=== PATIENT | male | born 1945 | race Caucasian/White ===

== ENCOUNTER 2018-07-21 08:45 | Day surgery (SDC) | payer OTHER, BC ==
--- OUTSIDE RECORDS SUMMARY | 2018-07-21 08:47 | XMS REPORT ---
:1945 [facility] Address [address] [place] [address] [address]. Ship[address] [place] [address] Care Team Providers Name Role Phone Unavailable Unavailable Unavailable Payers Payer Name Policy Type Policy Number Effective Date Expiration Date Problems This patient has no known problems. Allergies, Adverse Reactions, Alerts Allergy Allergy Status Severity Reaction(s) Onset Inactive Treating Comments Name Type Date Date Clinician No Known DA Active U 2018-05 Allergies -03 00:00:0 0 Medications This patient has no known medications.
--- OUTSIDE RECORDS SUMMARY | 2018-07-21 08:47 | XMS REPORT | Clinical Summary ---
:1945 Author Organization [facility] Address [address] [place] [address] Care Team Providers Name Role Phone Darnell Harrison Osiris Primary Care Provider Allergies No Known Allergies Medications Medication Sig Dispensed Refills Start Date End Date Status aspirin 81 MG Take 81 mg 0 Active chewable tablet by mouth daily. metoprolol Take 50 mg 0 Active (LOPRESSOR) 50 MG by mouth 2 tablet (two) times daily. isosorbide dinitrate Take 30 mg 0 Active (ISORDIL) 30 MG by mouth 4 tablet (four) times daily. traZODone (DESYREL) Take 50 mg 0 Active 50 MG tablet by mouth nightly. simvastatin (ZOCOR) Take 20 mg 0 Active 20 MG tablet by mouth nightly. colestipol 1 gram Tab Take by 0 Active mouth. digoxin (LANOXIN) Take 125 mcg 0 Active 0.125 MG tablet by mouth daily. furosemide (LASIX) 20 Take 20 mg 0 Active MG tablet by mouth daily. rivaroxaban (XARELTO) Take 20 mg 0 Active 20 mg Tab tablet by mouth daily. folic acid (FOLVITE) Take 1 mg by 0 Active 1 MG tablet mouth daily. spironolactone Take 50 mg 0 Active (ALDACTONE) 50 MG by mouth tablet daily. hydrOXYzine (ATARAX) Take 25 mg 0 Active 25 MG tablet by mouth every night as needed. colchicine (COLCRYS) Take 0.6 mg 0 Active 0.6 mg tablet by mouth as needed. thiamine 100 MG Take 100 mg 0 Active tablet by mouth daily. vitamin E 400 UNIT Take 400 0 Active capsule Units by mouth daily. omega-3 acid ethyl Take 2 g by 0 Active esters (LOVAZA) 1 mouth 2 gram capsule (two) times daily. apixaban (ELIQUIS) Take 2.5 mg 0 Active 2.5 mg Tab tablet by mouth 2 (two) times daily. sertraline (ZOLOFT) TAKE ONE (1) 30 tablet 2 10/19/2017 Active 50 MG TABLET(S) BY tabletIndications: MOUTH ONCE A Pruritus, Abnormal DAY. liver enzymes, Hyperlipidemia, unspecified hyperlipidemia type, Fatty liver, Screening for cancer, Cirrhosis of liver without ascites, unspecified hepatic cirrhosis type (HCC), Overweight sertraline (ZOLOFT) Take 1 90 tablet 3 05/28/2017 10/19/2017 Discontinued 50 MG tablet (50 tabletIndications: mg total) by Pruritus, Abnormal mouth daily. liver enzymes, Hyperlipidemia, unspecified hyperlipidemia type, Fatty liver, Screening for cancer, Cirrhosis of liver without ascites, unspecified hepatic cirrhosis type (HCC), Overweight Active Problems Problem Noted Date Pruritus 10/25/2015 Alcohol use 09/02/2013 Overweight 09/02/2013 Hyperlipidemia 09/02/2013 Renal insufficiency 09/02/2013 Fatty liver 09/02/2013 Cirrhosis, Risk of 01/05/2013 Last Assessment & Plan: Patient has risk factors in the form of heavy alcohol abuse in the past. He we will do the comprehensive workup for other causes of cirrhosis. He'll also need assessment for portal hypertension, endoscopy for admission screening and MRI for screening of liver cancer. Melena 01/05/2013 Last Assessment & Plan: Patient has history of intermittent melena for last 1-2 weeks. He has not symptom of fatigue and his last hemoglobin was 9 will need 24 hour supervision for safety. Gm/dl. I recommend patient to go to the emergency room for further evaluation. Melena can be due to associated varices or gastric or peptic ulcer disease. He will need monitoring of hemoglobin, possible blood transfusion and endoscopic evaluation Congestive heart failure 01/05/2013 Last Assessment & Plan: Patient has background history of coronary artery disease, he has progressive dyspnea and bite to the extremity edema. He is on diuretics but he does not appear to be adequately controlled. I recommend going into the ER for evaluation and treatment Abnormal liver enzymes 01/05/2013 Last Assessment & Plan: Patient was suffered here for abnormal liver panel, predominant elevation of alkaline phosphatase . This may be related to congestive hepatopathy, but he has symptoms of pruritus, cholestatic liver dise ase needs to be excluded The patient he has significant risk factor for chronic liver disease, there is do a comprehensive workup for evaluation Screening for cancer 01/05/2013 Last Assessment & Plan: Patient has suggestion of cirrhosis based on the imaging. He will need to MRI to further evaluate for screening of HCC. Coronary artery disease 01/05/2013 Last Assessment & Plan: Patient has history of coronary artery disease last 15 years, he is status post multiple coronary angioplasties in the past. He is followed closely by his community outreach coordinator at present denies any chest pain but symptoms of progressive fatigue and dyspnea concerning. He will need evaluation. My recommendation would be to go to the emergency room for admission and assessment. Patient refusing initially, other check labs . GI bleed 01/05/2013 Encounters Date Type Specialty Care Team Description 06/24/2018 Outside Orders Central Scheduling Emigdio Goncalves Acute renal failure, unspecified acute renal failure type (HCC) (Primary Dx) 02/24/2018 Telephone Hepatology Katerina Pace refjoanie Jason RN 10/19/2017 Refill Hepatology Arturo Wills, Pruritus; Abnormal liver enzymes; Hyperlipidemia, unspecified hyperlipidemia type; Fatty liver; Screening for cancer; Cirrhosis of liver without ascites, unspecified hepatic cirrhosis type (HCC); Overweight after 07/20/2017 Family History Medical History Relation Name Comments Gout Father Hypertension Father Heart disease Mother Relation Name Status Comments Father Mother Social History Tobacco Use Types Packs/Day Years Used Date Former Smoker Smokeless Tobacco: Former User Quit: 06/01/2005 Alcohol Use Drinks/Week oz/Week Comments Yes more than 5 times/week, quit 12/05/2012 Sex Assigned at Date Recorded Not on file Job Start Date Occupation Industry Not on file Not on file Not on file Travel History Travel Start Travel End No recent travel history available. Last Filed Vital Signs Not on file Plan of Treatment Health Maintenance Due Date Last Done Comments INFLUENZA VACCINE 03/01/2018 Results Not on fileafter 07/20/2017 Insurance Payer Benefit Plan / Subscriber ID Type Phone Address Group MEDICARE MEDICARE A B xxxxxxxxxx Medicare BLUE CROSS/BLUE BCBS INDEMNITY [place] xxxxxxxxxxxx [facility] [phone] [address] [place] [address] Advance Directives For more information, please contact:[address] [phone] Code Status Date Activated Date Inactivated Comments Code ONE 01/11/2013 7:33 PM 01/13/2013 7:59 PM All possible means of support including;cardiac massage, mechanical ventilation, and defibrillation will be used to support life.
--- OUTSIDE RECORDS SUMMARY | 2018-07-21 08:47 | XMS REPORT | Clinical Summary ---
:1945 Author Organization [facility] Address [address] [place] [address] Care Team Providers Name Role Phone Asked, No Pcp Primary Care Provider Unavailable Allergies Not on File Medications Not on file Active Problems Not on file Social History Tobacco Use Types Packs/Day Years Used Date Never Assessed Sex Assigned at Date Recorded Not on file Job Start Date Occupation Industry Not on file Not on file Not on file Travel History Travel Start Travel End No recent travel history available. Last Filed Vital Signs Not on file Plan of Treatment Health Maintenance Due Date Last Done Comments COLON CANCER SCREENING 1996 SHINGLES VACCINES (1 of 2) 1996 PNEUMOCOCCAL POLYSACCHARIDE VACCINE AGE 65 AND OVER 2011 PNEUMOCOCCAL-13 2011 INFLUENZA VACCINE 12/30/2017 Results Not on fileafter 07/20/2017 Insurance Payer Benefit Plan / Group Subscriber ID Type Phone Address MEDICARE MEDICARE PART A AND B xxxxxxxxxx Medicare [place], [place] BCBS BCBS CHOICE PPO/FEDERAL EMPL PPO xxxxxxxxxxxx PPO Advance Directives Patient has advance care planning documents on file. For more information, please contact:[facility] [place] [address]
--- NOTE | 2018-07-21 11:49 | RAD REPORT ---
EXAM DESCRIPTION: US - Abdomen Exam Limited - 07/21/2018 10:32 am CLINICAL HISTORY: Abdominal pain. FINDINGS: The patient presented for a paracentesis. A small amount of ascites is seen within the right upper quadrant. Minimal ascites is present through out the remainder of the abdomen and pelvis. Due to the small amount of ascites a paracentesis was not performed
== END 2018-07-21 10:54 | disposition home or self-care (01) ==
LOC: DS 08:45
PROVIDERS: ATTEND Internal Medicine
DX: R18.8 Other ascites (principal)
CPT/HCPCS: 76705

== ENCOUNTER 2018-07-24 16:30 | Emergency (ER) | payer OTHER, BC ==
--- OUTSIDE RECORDS SUMMARY | 2018-07-24 16:32 | XMS REPORT | Clinical Summary ---
:1945 Author Organization [facility] Address [address] [place] [address] Care Team Providers Name Role Phone Asked, [...] Comments COLON CANCER SCREENING 1996 SHINGLES VACCINES (#1) 1996 65+ PNEUMOCOCCAL VACCINE (1 of 2 - PCV13) 2011 PNEUMOCOCCAL POLYSACCHARIDE VACCINE AGE 65 AND OVER 2011 INFLUENZA VACCINE 12/30/2017 Results Not on fileafter 07/23/2017 Insurance Payer Benefit Plan / Group Subscriber ID Type Phone Address MEDICARE MEDICARE PART A AND B xxxxxxxxxx Medicare [place], [place] BCBS BCBS CHOICE PPO/FEDERAL EMPL PPO xxxxxxxxxxxx PPO Advance Directives Patient has advance care planning documents on file. For more information, please contact:[facility] [place] [address]
--- OUTSIDE RECORDS SUMMARY | 2018-07-24 16:33 | XMS REPORT ---
:1945 [facility] Address [address] [place] [address] [address]. [address]ley [address] [place] [address] Care Team Providers Name Role Phone Unavailable [...]
--- OUTSIDE RECORDS SUMMARY | 2018-07-24 16:33 | XMS REPORT | Clinical Summary ---
:1945 Demographics Address [address] [place] [address] [address] [place] [address] Mobile Phone Home Phone Work Phone Email Address Preferred Language Macedonian Marital Status Unknown Gnosticism Affiliation Unknown Race White Ethnic Group Not or Author Organization [facility] Address [address] [place] [address] Care Team Providers Name Role Phone Darnell [...] past. He is followed closely by his air saw operator at present denies any chest pain but [...] unspecified hepatic cirrhosis type (HCC); Overweight after 07/23/2017 Family History Medical History Relation Name Comments [...] INFLUENZA VACCINE 03/01/2018 Results Not on fileafter 07/23/2017 Insurance Payer Benefit Plan / Subscriber ID Type Phone Address Group MEDICARE MEDICARE A B xxxxxxxxxx Medicare BLUE CROSS/BLUE BCBS INDEMNITY [place] xxxxxxxxxxxx [facility] [phone] [address] [place] [address] Advance Directives For more information, please contact:[address] [phone] Code Status Date Activated Date Inactivated Comments Code ONE 01/11/2013 7:33 PM 01/13/2013 7:59 PM All possible means of support including;cardiac massage, mechanical ventilation, and defibrillation will be used to support life.
--- NOTE | 2018-07-24 16:52 | ER ---
Nurse's Notes [facility] Name: Tam Escalante Age: 73 yrs Sex: Male : 1945 Arrival Date: 07/24/2018 Time: 16:36 Bed 8 Private MD: Diagnosis: Varicose veins of right lower extremities with pain-bleeding Presentation: 07/24 16:30 Presenting complaint: Patient states: He had a scab on his leg from where he hit it on aj1 a deer stand. Today while he was in the shower he bumped it and it burst open and he has not been able to get it to stop bleeding. Patient reports that he takes Xarelto. 16:30 Transition of care: patient was not received from another setting of care. Complicating aj1 Factors: There are no complicating factors for this patient. Onset of symptoms was July 24, 2018. Risk Assessment: Do you want to hurt yourself or someone else? Patient reports no desire to harm self or others. Initial Sepsis Screen: Does the patient meet any 2 criteria? No. Patient's initial sepsis screen is negative. Does the patient have a suspected source of infection? No. Patient's initial sepsis screen is negative. Care prior to arrival: None. 16:30 Method Of Arrival: Ambulatory aj1 16:30 Acuity: SHAYNE 2 aj1 Triage Assessment: 16:30 General: Appears in no apparent distress. uncomfortable, Behavior is calm, cooperative, aj1 appropriate for age. Pain: Complains of pain in lateral aspect of right calf Pain currently is 6 out of 10 on a pain scale. Injury Description: Laceration sustained to lateral aspect of right calf is bleeding profusely. Historical: - Allergies: 16:45 No Known Allergies; aj1 - Home Meds: 16:45 Metoprolol Tartrate Oral [Active]; Xarelto oral oral [Active]; aj1 - PMHx: 16:45 Hypertension; aj1 - Immunization history:: Flu vaccine is not up to date. - Social history:: Smoking status: Patient/guardian denies using tobacco. - Ebola Screening: : Patient denies travel to an Ebola-affected area in the 21 days before illness onset. - Family history:: not pertinent. Screenin:30 Abuse screen: Denies threats or abuse. Denies injuries from another. Nutritional aj1 screening: No deficits noted. Tuberculosis screening: No symptoms or risk factors identified. 16:30 Fall Risk None identified. aj1 Assessment: 16:30 Reassessment: Dr. Yousif at bedside. aj1 16:30 General: Appears in no apparent distress. uncomfortable, Behavior is calm, cooperative, aj1 appropriate for age. Pain: Complains of pain in lateral aspect of right calf Pain does not radiate. Pain currently is 6 out of 10 on a pain scale. Neuro: Level of Consciousness is awake, alert, obeys commands, Oriented to person, place, time, situation. Cardiovascular: Patient's skin is warm and dry. Respiratory: Airway is patent Respiratory effort is even, unlabored, Respiratory pattern is regular, symmetrical. GI: No signs and/or symptoms were reported involving the gastrointestinal system. : No signs and/or symptoms were reported regarding the genitourinary system. EENT: No signs and/or symptoms were reported regarding the EENT system. Derm: Skin is pink, warm \T\ dry. Musculoskeletal: No signs and/or symptoms reported regarding the musculoskeletal system. Circulation, motion, and sensation intact. Injury Description: Laceration sustained to lateral aspect of right calf is bleeding profusely. 16:51 Reassessment: Wound repaired by Dr. Yousif using sterile technique with 1 stitch and aj1 application of Surgicel, site was covered with 4x4 and wrapped with SELAM bandage. Patient tolerated well. Vital Signs: 16:30 BP 113 / 75; Pulse 82; Resp 17; Pulse Ox 100% on R/A; Weight 91.63 kg; Height 5 ft. 9 aj1 in. (175.26 cm); Pain 6/10; 16:30 Body Mass Index 29.83 (91.63 kg, 175.26 cm) aj1 ED Course: 16:30 Arm band placed on. aj1 16:30 Patient has correct armband on for positive identification. Bed in low position. Call aj1 light in reach. Side rails up X 1. radiation monitor on. Pulse ox on. NIBP on. 16:30 No provider procedures requiring assistance completed. aj1 16:36 Patient arrived in ED. aj1 16:42 Letty David RN is Primary Nurse. aj1 16:43 Joe Yousif MD is Attending Physician. [facility] 16:44 Triage completed. aj1 16:50 Fili Arceo MD is Referral Physician. [facility] 17:04 Patient did not have IV access during this emergency room visit. aj1 Administered Medications: No medications were administered Outcome: 16:51 Discharge ordered by . [facility] 17:04 Discharged to home via wheelchair. [facility] 17:04 Condition: good 17:04 Discharge instructions given to patient, Instructed on discharge instructions, follow up and referral plans. no drinking with medication, no driving heavy equipment, medication usage, Demonstrated understanding of instructions, follow-up care, medications, Prescriptions given X 2. 17:05 Patient left the ED. aj Signatures: Letty David RN RN aj1 Joe Yousif MD MD [facility] Corrections: (The following items were deleted from the chart) 16:48 16:30 Acuity: SHAYNE [address] [place] [id number] 16:48 16:47 Reassessment: Dr. Yousif at bedside [place] [id number]
--- NOTE | 2018-07-24 16:52 | EDPHYS ---
Physician Documentation [facility] Name: Tam Escalante Age: 73 yrs Sex: Male : 1945 Arrival Date: 07/24/2018 Time: 16:36 Bed 8 Private MD: ED Physician Joe Yousif HPI: 07/24 16:45 This 73 yrs old Male presents to ER via Ambulatory with complaints of ayleen Laceration To Leg. 16:45 The patient has a laceration related to: a puncture wound avulsion. The laceration(s) ayleen is(are) located on the right leg. Onset: The symptoms/episode began/occurred just prior to arrival, original wound June 10. Associated signs and symptoms: The patient has no apparent associated signs or symptoms. The patient has not experienced similar symptoms in the past. Historical: - Allergies: 16:45 No Known Allergies; aj1 - Home Meds: 16:45 Metoprolol Tartrate Oral [Active]; Xarelto oral oral [Active]; aj1 - PMHx: 16:45 Hypertension; aj1 - Immunization history:: Flu vaccine is not up to date. - Social history:: Smoking status: Patient/guardian denies using tobacco. - Ebola Screening: : Patient denies travel to an Ebola-affected area in the 21 days before illness onset. - Family history:: not pertinent. ROS: 16:45 Constitutional: Negative for fever, chills, and weight loss, Eyes: Negative for injury, ayleen pain, redness, and discharge, ENT: Negative for injury, pain, and discharge, Neck: Negative for injury, pain, and swelling, Cardiovascular: Negative for chest pain, palpitations, and edema, Respiratory: Negative for shortness of breath, cough, wheezing, and pleuritic chest pain, Abdomen/GI: Negative for abdominal pain, nausea, vomiting, diarrhea, and constipation, Back: Negative for injury and pain, : Negative for injury, bleeding, discharge, and swelling, Skin: Negative for injury, rash, and discoloration, Neuro: Negative for headache, weakness, numbness, tingling, and seizure, Psych: Negative for depression, anxiety, suicide ideation, homicidal ideation, and hallucinations, Allergy/Immunology: Negative for hives, rash, and allergies, Endocrine: Negative for neck swelling, polydipsia, polyuria, polyphagia, and marked weight changes, Hematologic/Lymphatic: Negative for swollen nodes, abnormal bleeding, and unusual bruising. 16:45 MS/extremity: Positive for erythema, pain, of the right leg. Exam: 16:45 Constitutional: This is a well developed, well nourished patient who is awake, alert, ayleen and in no acute distress. Head/Face: Normocephalic, atraumatic. Eyes: Pupils equal round and reactive to light, extra-ocular motions intact. Lids and lashes normal. Conjunctiva and sclera are non-icteric and not injected. Cornea within normal limits. Periorbital areas with no swelling, redness, or edema. ENT: Nares patent. No nasal discharge, no septal abnormalities noted. Tympanic membranes are normal and external auditory canals are clear. Oropharynx with no redness, swelling, or masses, exudates, or evidence of obstruction, uvula midline. Mucous membranes moist. Neck: Trachea midline, no thyromegaly or masses palpated, and no cervical lymphadenopathy. Supple, full range of motion without nuchal rigidity, or vertebral point tenderness. No Meningismus. Chest/axilla: Normal chest wall appearance and motion. Nontender with no deformity. No lesions are appreciated. Cardiovascular: Regular rate and rhythm with a normal S1 and S2. No gallops, murmurs, or rubs. Normal PMI, no JVD. No pulse deficits. Respiratory: Lungs have equal breath sounds bilaterally, clear to auscultation and percussion. No rales, rhonchi or wheezes noted. No increased work of breathing, no retractions or nasal flaring. Abdomen/GI: Soft, non-tender, with normal bowel sounds. No distension or tympany. No guarding or rebound. No evidence of tenderness throughout. Back: No spinal tenderness. No costovertebral tenderness. Full range of motion. Male : Normal genitalia with no discharge or lesions. Skin: Warm, dry with normal turgor. Normal color with no rashes, no lesions, and no evidence of cellulitis. Neuro: Awake and alert, GCS 15, oriented to person, place, time, and situation. Cranial nerves II-XII grossly intact. Motor strength 5/5 in all extremities. Sensory grossly intact. Cerebellar exam normal. Normal gait. Psych: Awake, alert, with orientation to person, place and time. Behavior, mood, and affect are within normal limits. 16:45 Musculoskeletal/extremity: Extremities: noted in the right lyons: pain, abrasion, ROM: no acute changes, intact in all extremities, full active range of motion, full passive range of motion, Circulation is intact in all extremities. Sensation intact. Compartment Syndrome exam of affected extremity: is normal. bleeding varicose vein. Vital Signs: 16:30 BP 113 / 75; Pulse 82; Resp 17; Pulse Ox 100% on R/A; Weight 91.63 kg; Height 5 ft. 9 aj1 in. (175.26 cm); Pain 6/10; 16:30 Body Mass Index 29.83 (91.63 kg, 175.26 cm) aj1 Laceration: 16:48 Wound Repair of .2cm ( 0.1in ) subcutaneous laceration to right lyons. Irregularly ayleen shaped.. varicose vein. Distal neuro/vascular/tendon intact. Anesthesia: Local anesthetic administered with 6 mls of 1% lidocaine. Wound prep: Simple cleansing by me, Copious irrigation. Skin closed with 1 1-0 fig 8 using simple sutures and sterile technique. Dressed with surgicel , adaptix, guaze , emile. Patient tolerated well. MDM: 16:43 Patient medically screened. [facility] 16:48 Data reviewed: vital signs, nurses notes. [facility] 07/24 16:44 Order name: Dressing - Wound; Complete Time: 16:52 [facility] 07/24 16:44 Order name: Gloves, Sterile; Complete Time: 16:52 [facility] 07/24 16:44 Order name: Setup Suture Tray; Complete Time: 16:52 [facility] 07/24 16:44 Order name: Emile Wrap; Complete Time: 16:52 [facility] Administered Medications: No medications were administered Disposition: 07/24/18 16:51 Discharged to Home. Impression: Varicose veins of right lower extremities with pain - bleeding. - Condition is Stable. - Discharge Instructions: Varicose Veins. - Prescriptions for Keflex 500 mg Oral Capsule - take 1 capsule by ORAL route every 6 hours for 7 days; 28 capsule. Tylenol- Codeine #3 300-30 mg Oral Tablet - take 2 tablets by ORAL route every 6 hours As needed; 24 tablet. - Medication Reconciliation Form, Thank You Letter, Antibiotic Education, Prescription Opioid Use form. - Follow up: Private Physician; When: 2 - 3 days; Reason: Recheck today's complaints, Continuance of care, Re-evaluation by your physician. Follow up: Fili Arceo MD; When: 2 - 3 days; Reason: Recheck today's complaints, Continuance of care, Re-evaluation by your physician. - Problem is new. - Symptoms have improved. Signatures: Letty David RN RN aj1 Joe Yousif MD MD cha Corrections: (The following items were deleted from the chart) 17:05 16:51 07/24/2018 16:51 Discharged to Home. Impression: Varicose veins of right lower aj1 extremities with pain - bleeding. Condition is Stable. Forms are Medication Reconciliation Form, Thank You Letter, Antibiotic Education, Prescription Opioid Use. Follow up: Private Physician; When: 2 - 3 days; Reason: Recheck today's complaints, Continuance of care, Re-evaluation by your physician. Follow up: Dr. Fili Arceo; When: 2 - 3 days; Reason: Recheck today's complaints, Continuance of care, Re-evaluation by your physician. Problem is new. Symptoms have improved. ayleen
== END 2018-07-24 17:05 | disposition home or self-care (01) ==
LOC: ER 16:30
PROC: 0HQKXZZ Repair Right Lower Leg Skin, External Approach (ICD-10-PCS; principal; 2018-07-24)
DX: I83.891 Varicose veins of right lower extremity with other complications (principal); I83.811 Varicose veins of right lower extremity with pain
CPT/HCPCS: 99284

== ENCOUNTER 2018-07-31 15:59 | Emergency (ER) | payer OTHER, BC ==
--- OUTSIDE RECORDS SUMMARY | 2018-07-31 16:01 | XMS REPORT | Clinical Summary ---
:1945 Author Organization [facility] Address [address] [place] [address] Care Team Providers Name Role Phone Asked, [...] INFLUENZA VACCINE 12/30/2017 Results Not on fileafter 07/30/2017 Insurance Payer Benefit Plan / Group Subscriber ID Type Phone Address MEDICARE MEDICARE PART A AND B xxxxxxxxxx Medicare [place], [place] BCBS BCBS CHOICE PPO/FEDERAL EMPL PPO xxxxxxxxxxxx PPO Advance Directives Patient has advance care planning documents on file. For more information, please contact:[facility] [place] [address]
--- OUTSIDE RECORDS SUMMARY | 2018-07-31 16:02 | XMS REPORT ---
:1945 Author Organization [facility] Address [address] [place] [address] [address]. [address] [place] [address] Care Team Providers Name Role Phone Unavailable [...]
--- OUTSIDE RECORDS SUMMARY | 2018-07-31 16:02 | XMS REPORT | Clinical Summary ---
:1945 Author Organization [facility] Address [address] [place] [address] Care Team Providers Name Role Phone Darnell [...] past. He is followed closely by his station gateman at present denies any chest pain but [...] (Primary Dx) 02/24/2018 Telephone Hepatology Katerina Pace refill ACE Jason 10/19/2017 Refill Hepatology Arturo Wills, Pruritus; Abnormal liver enzymes; Hyperlipidemia, unspecified hyperlipidemia type; Fatty liver; Screening for cancer; Cirrhosis of liver without ascites, unspecified hepatic cirrhosis type (HCC); Overweight after 07/30/2017 Family History Medical History Relation Name Comments [...] INFLUENZA VACCINE 03/01/2018 Results Not on fileafter 07/30/2017 Insurance Payer Benefit Plan / Subscriber ID Type Phone Address Group MEDICARE MEDICARE A B xxxxxxxxxx Medicare BLUE CROSS/BLUE BCBS INDEMNITY [place] xxxxxxxxxxxx [facility] [phone] [address] [place] [address] Advance Directives For more information, please contact:[address] [phone] Code Status Date Activated Date Inactivated Comments Code ONE 01/11/2013 7:33 PM 01/13/2013 7:59 PM All possible means of support including;cardiac massage, mechanical ventilation, and defibrillation will be used to support life.
[2018-07-31] MEDS ORDERED: PANTOPRAZOLE 40 MG INJ ONE (16:54)
[2018-07-31 16:56] LABS: Absolute Lymphocytes (CBC) 1.1 K/uL (0.7-4.9); Absolute Monocytes 1.6 K/uL (0.1-1.3); Basophils % 1.1 % (0-1.3); MPV 8.9 fL (7.6-11.3); Monocytes % 12.5 % (3.3-12.3); RBC Red Blood Cell Count 2.23 M/uL (4.33-5.43)
[2018-07-31] MEDS ORDERED: PANTOPRAZOLE INJ 80 MG in NA CHLORIDE 0.9% 250 ML IV SCH (17:00)
[2018-07-31 17:01] LABS: Protime INR 1.18
[2018-07-31 17:02] LABS: Hematocrit 18.4 % (39.6-49.0)
[2018-07-31 17:15] LABS: ALT/SGPT 10 U/L (12-78); AST/SGOT 10 U/L (15-37); Albumin 2.9 g/dL (3.4-5.0); Alkaline Phosphatase 161 U/L (45-117); BUN Blood Urea Nitrogen 107 mg/dL (7-18); Bicarbonate 27 mmol/L (21-32); Bilirubin Direct 0.2 mg/dL (0-0.2); Bilirubin Total 0.4 mg/dL (0.2-1.0); Glucose Level 127 mg/dL (74-106); Magnesium 2.4 mg/dL (1.8-2.4); NT PRO-BNP 1455 pg/mL (<125); Protein, Total 6.1 g/dL (6.4-8.2); Sodium Level 140 mmol/L (136-145); Troponin (Emerg Dept Use Only) < 0.02 ng/mL (0.0-0.045)
[2018-07-31] MEDS ORDERED: NA CHLORIDE 0.9% 250 ML ONE ×2 (17:54→20:12)
--- NOTE | 2018-07-31 19:09 | RAD REPORT ---
EXAM DESCRIPTION: CT - Abdomen Pelvis Wo Contrast - 07/31/2018 6:41 pm CLINICAL HISTORY: Abdominal pain /GI bleed COMPARISON: None TECHNIQUE: Computed axial tomography of the abdomen and pelvis was obtained. IV was not requested. O ral contrast was given. Coronal reconstructions performed. All CT scans are performed using dose optimization technique as appropriate and may include automated exposure control or mA/KV adjustment according to patient size. FINDINGS: The evaluation of solid organs and vessels is limited secondary to the lack of contrast a dministration. The liver, spleen, pancreas, adrenals and kidneys appear grossly normal. The appendix is normal. There is no evidence of diverticulitis. A 4.8 centimeter peripherally calcified mass is present within the mesentery of the left abdomen abov e the level of the iliac crest anteriorly. An umbilical hernia contains fat. The neck measures about 15 millimeters. Spondylosis involves lumbar spine resulting spinal stenosis A minimal amount of ascites is present IMPRESSION: 4.8 centimeter peripherally calcified mesenteric mass within the left abdomen has a grea ter likelihood of being benign than malignant. A followup CT scan in 3 months is recommended to asses s stability.
--- NOTE | 2018-07-31 19:10 | RAD REPORT ---
EXAM DESCRIPTION: [place] Single View07/31/2018 5:20 pm CLINICAL HISTORY: Chest pain COMPARISON: July 13, 2018 FINDINGS: The lungs appear clear of acute infiltrate. The heart is moderately to markedly enlarged IMPRESSION: No acute abnormalities displayed
--- NOTE | 2018-07-31 19:59 | ER ---
Nurse's Notes [facility] Name: Tam Escalante Age: 73 yrs Sex: Male : 1945 Arrival Date: 07/31/2018 Time: 16:02 Bed 8 Private MD: Diagnosis: Unspecified kidney failure;Anemia in chronic diseases classified elsewhere;Gastrointestinal hemorrhage, unspecified Presentation: 07/31 16:05 Presenting complaint: Patient states: black stools x 3 days ago, pt denies vomiting but aa5 reports nausea. Pt states "I was also here a week ago and Dr. Yousif sutured my leg but when I take the bandage off it starts bleeding again". Pt denies abd pain. 16:05 Transition of care: patient was not received from another setting of care. Onset of aa5 symptoms was July 28, 2018. Risk Assessment: Do you want to hurt yourself or someone else? Patient reports no desire to harm self or others. Care prior to arrival: None. 16:05 Method Of Arrival: Ambulatory aa5 16:05 Acuity: SHAYNE 3 aa5 19:23 Initial Sepsis Screen: Does the patient meet any 2 criteria? No. Patient's initial la1 sepsis screen is negative. Does the patient have a suspected source of infection? No. Patient's initial sepsis screen is negative. Historical: - Allergies: 16:05 No Known Allergies; aa5 - Home Meds: 18:25 metoprolol tartrate 100 mg oral tab 2 times per day [Active]; Xarelto 15 mg oral tab iw daily [Active]; trazodone 50 mg Oral tab daily [Active]; folic acid 1 mg Oral tab 1 tab once daily [Active]; torsemide 20 mg oral tab 1 tab once daily [Active]; isosorbide dinitrate 30 mg Oral tab daily [Active]; colchicine 0.6 mg Oral tab as needed [Active]; allopurinol 100 mg Oral tab 1 tab once daily [Active]; - PMHx: 16:05 Hypertension; GI bleed; Stomach ulcer; aa5 - Immunization history:: Adult Immunizations up to date. - Ebola Screening: : No symptoms or risks identified at this time. - Social history:: Smoking status: Patient/guardian denies using tobacco. Screenin:51 Abuse screen: Denies threats or abuse. Nutritional screening: No deficits noted. la1 Tuberculosis screening: No symptoms or risk factors identified. Fall Risk None identified. Assessment: 16:51 General: Appears in no apparent distress. Behavior is calm, cooperative. Pain: la1 Complains of pain in abdomen. Neuro: Level of Consciousness is awake, alert, obeys commands, Oriented to person, place, time, situation. Cardiovascular: Heart tones S1 S2 present Capillary refill < 3 seconds Patient's skin is warm and dry. Respiratory: Airway is patent Respiratory effort is even, unlabored, Respiratory pattern is regular, symmetrical. GI: Abdomen is round non-distended, Bowel sounds present X 4 quads. Abd is soft X 4 quads Abdomen is tender to palpation in left upper quadrant and right lower quadrant Reports bloody stool, nausea, since 07/29 Pt guaiac positive, dark black tarry stool on glove. : No signs and/or symptoms were reported regarding the genitourinary system. 18:15 Reassessment: Patient appears in no apparent distress at this time. No changes from la1 previously documented assessment. Patient and/or family updated on plan of care and expected duration. Pain level reassessed. Patient is alert, oriented x 3, equal unlabored respirations, skin warm/dry/pink. 19:22 Reassessment: Patient appears in no apparent distress at this time. No changes from la1 previously documented assessment. Patient and/or family updated on plan of care and expected duration. Pain level reassessed. Patient is alert, oriented x 3, equal unlabored respirations, skin warm/dry/pink. 20:53 Reassessment: Patient appears in no apparent distress at this time. No changes from la1 previously documented assessment. Patient and/or family updated on plan of care and expected duration. Pain level reassessed. Patient is alert, oriented x 3, equal unlabored respirations, skin warm/dry/pink. 20:53 Reassessment: pt currently finishing second unit of blood as requested by receiving [facility] facility. 08/01 00:43 Reassessment: Patient appears in no apparent distress at this time. No changes from jd3 previously documented assessment. Patient and/or family updated on plan of care and expected duration. Pain level reassessed. Patient is alert, oriented x 3, equal unlabored respirations, skin warm/dry/pink. 01:02 Reassessment: Patient and/or family updated on plan of care and expected duration. Pain tl1 level reassessed. Patient is alert, oriented x 3, equal unlabored respirations, skin warm/dry/pink. Patient denies pain at this time. Patient states feeling better. 01:03 Reassessment: Report called to Kiara at [facility]. tl1 Vital Signs: 07/31 16:07 BP 133 / 79; Pulse 95; Resp 18 S; Temp 97.7(O); Pulse Ox 100% on R/A; Weight 91.63 kg aa5 (R); Height 5 ft. 9 in. (175.26 cm) (R); Pain 0/10; 17:50 BP 154 / 86; Pulse 93; Resp 16; Pulse Ox 100% on R/A; iw 19:22 BP 148 / 76; Pulse 91; Resp 16; Pulse Ox 98% on R/A; la1 20:54 BP 136 / 66; Pulse 84; Resp 18; Temp 96.7(TE); Pulse Ox 98% ; la1 0303 00:03 BP 127 / 63; Pulse 85; Resp 17; Pulse Ox 99% on R/A; Pain 0/10; tl1 00:45 BP 120 / 51; Pulse 79; Resp 16 S; Pulse Ox 100% on R/A; jd3 03 16:07 Body Mass Index 29.83 (91.63 kg, 175.26 cm) aa5 ED Course: 07/31 16:02 Patient arrived in ED. mr 16:05 Arm band placed on Patient placed in an exam room, on a stretcher. aa5 16:11 Sigifredo Garcia RN is Primary Nurse. la1 16:13 Joe Reid PA is PHCP. cp 16:13 Alvina Ponce MD is Attending Physician. cp 16:17 Triage completed. aa5 16:51 Placed in gown. Bed in low position. Call light in reach. shuttle inspector on. Pulse ox la1 on. NIBP on. 16:51 No provider procedures requiring assistance completed. Inserted saline lock: 20 gauge la1 in right antecubital area, using aseptic technique. Blood collected. 17:17 X-ray completed. Portable x-ray completed in exam room. Patient tolerated procedure kw well. 17:18 XRAY Chest (1 view) In Process Unspecified. EDMS 18:38 CT completed. Patient tolerated procedure well. Patient moved back from CT. kw1 18:41 CT Abd/Pelvis - Without Cont In Process Unspecified. EDMS 08/01 01:04 Patient transferred, IV remains in place. tl1 Administered Medications: 07/31 16:51 Drug: ProTONIX 40 mg Route: IVP; Site: right antecubital; la1 20:54 Follow up: Response: No adverse reaction la1 17:09 Drug: ProTONIX 8 mg/hr Route: IV; Rate: 25 ml/hr; Site: right antecubital; la1 20:54 Follow up: IV Status: Infusion continued upon transfer la1 08/01 01:05 Follow up: IV Status: Infusion continued upon transfer tl1 07/31 23:41 Drug: Ativan 1 mg Route: IVP; Infused Over: 2 mins; Site: left antecubital; tl1 08/01 01:05 Follow up: Response: No adverse reaction; Marked relief of symptoms; Anxiety decreased tl1 Medication: 07/31 18:15 Blood products: PRBCs X 1 unit given. la1 20:53 Blood products: PRBCs X 1 unit given. la1 Outcome: 19:58 ER care complete, transfer ordered by MD. blanton 08/01 01:03 Transferred by private ambulance to [facility], [facility], Transfer form tl1 completed. X-rays sent w/ patient. Condition: stable Instructed on the need for transfer. 01:06 Patient left the ED. tl1 Signatures: Dispatcher [employer] [facility] Regina Quintana Dunia Del Rosario RN Palak Pillai RN RN Marissa Silva Lee, RN RN la1 Diane Jarrett RN RN tl1 Joe Reid PA PA cp Davies, Jonathon, RN RN jd3 Wilhelm, Kimberly kw1 Corrections: (The following items were deleted from the chart) 07/31 16:22 16:05 Presenting complaint: Patient states: black stools x 3 days ago, pt denies aa5 vomiting but reports nausea. Pt states "I was also here a week ago and Dr. Yousif sutured my leg but when I take the bandage off it starts bleeding again" aa5 18:25 18:06 Home Meds: Metoprolol Tartrate Oral; iw iw 18:25 18:06 Home Meds: Xarelto Oral; iw iw
--- NOTE | 2018-07-31 19:59 | EDPHYS ---
Physician Documentation [facility] Name: Tam Escalante Age: 73 yrs Sex: Male : 1945 Arrival Date: 07/31/2018 Time: 16:02 Bed 8 Private MD: ED Physician Alvina Ponce HPI: 07/31 16:27 This 73 yrs old Male presents to ER via Ambulatory with complaints of Bloody cp Stools, Abdominal Swelling. 16:27 The patient presents to the emergency department with rectal bleeding, a moderate cp amount, dark red blood with bowel movement with multiple such episodes. 16:27 Onset: The symptoms/episode began/occurred 3 day(s) ago. Abdominal pain: located in the cp right lower quadrant, that does not radiate. Associated signs and symptoms: Pertinent negatives: chest pain, constipation, diarrhea, dizziness at rest, fever, shortness of breath, syncope. Severity of symptoms: in the emergency department the symptoms are unchanged. Historical: - Allergies: 16:05 No Known Allergies; aa5 - Home Meds: 18:25 metoprolol tartrate 100 mg oral tab 2 times per day [Active]; Xarelto 15 mg oral tab iw daily [Active]; trazodone 50 mg Oral tab daily [Active]; folic acid 1 mg Oral tab 1 tab once daily [Active]; torsemide 20 mg oral tab 1 tab once daily [Active]; isosorbide dinitrate 30 mg Oral tab daily [Active]; colchicine 0.6 mg Oral tab as needed [Active]; allopurinol 100 mg Oral tab 1 tab once daily [Active]; - PMHx: 16:05 Hypertension; GI bleed; Stomach ulcer; aa5 - Immunization history:: Adult Immunizations up to date. - Ebola Screening: : No symptoms or risks identified at this time. - Social history:: Smoking status: Patient/guardian denies using tobacco. ROS: 16:30 Constitutional: Negative for body aches, chills, fever, poor PO intake. cp 16:30 Eyes: Negative for injury, pain, redness, and discharge. cp 16:30 ENT: Negative for drainage from ear(s), ear pain, sore throat, difficulty swallowing, difficulty handling secretions. 16:30 Cardiovascular: Negative for chest pain, edema. 16:30 Respiratory: Negative for cough, shortness of breath, wheezing. 16:30 Abdomen/GI: Positive for abdominal pain, black/tarry stool, Negative for vomiting, diarrhea, constipation, anorexia. 16:30 Skin: Positive for wound right lower leg. 16:30 Neuro: Negative for altered mental status, dizziness, headache, syncope, weakness. 16:30 All other systems are negative. Exam: 16:35 Constitutional: The patient appears in no acute distress, alert, awake, cp non-diaphoretic, non-toxic, well developed, well nourished. 16:35 Head/Face: Normocephalic, atraumatic. cp 16:35 Eyes: Periorbital structures: appear normal, Pupils: equal, round, and reactive to light and accomodation, Extraocular movements: intact throughout, Conjunctiva: normal, no exudate, no injection, Sclera: no appreciated abnormality, Lids and lashes: appear normal, bilaterally. 16:35 ENT: External ear(s): are unremarkable, Ear canal(s): are normal, TM's: are normal, no evidence of bulging, no erythema, Nose: is normal, Mouth: Lips: moist, Oral mucosa: moist, Posterior pharynx: is normal, airway is patent, no erythema, no exudate. 16:35 Neck: ROM/movement: is normal, is supple, without pain, no range of motions limitations, no nuchal rigidity. 16:35 Chest/axilla: Inspection: normal, Palpation: is normal, no crepitus, no tenderness. 16:35 Cardiovascular: Rate: normal, Rhythm: irregularly irregular, Edema: is not appreciated, JVD: is not appreciated. 16:35 Respiratory: the patient does not display signs of respiratory distress, Respirations: normal, no use of accessory muscles, no retractions, no splinting, no tachypnea, labored breathing, is not present, Breath sounds: are clear throughout, no decreased breath sounds, no stridor, no wheezing. 16:35 Abdomen/GI: Inspection: distension, that is mild, Bowel sounds: active, all quadrants, Palpation: soft, in all quadrants, mild abdominal tenderness, in the right lower quadrant, rebound tenderness, is not appreciated, voluntary guarding, is not appreciated, involuntary guarding, is not appreciated, Rectal exam: Stool: guaiac positive, black. 16:35 Neuro: Orientation: to person, place \T\ time. Mentation: is normal, Cerebellar function: is grossly normal, Motor: moves all fours, strength is normal, Sensation: is normal. 16:35 Skin: Wound recheck: Suture laceration closure: the edges are well approximated, mild cp drainage, mild erythema. 16:57 ECG was reviewed by the Attending Physician. cp Vital Signs: 16:07 BP 133 / 79; Pulse 95; Resp 18 S; Temp 97.7(O); Pulse Ox 100% on R/A; Weight 91.63 kg aa5 (R); Height 5 ft. 9 in. (175.26 cm) (R); Pain 0/10; 17:50 BP 154 / 86; Pulse 93; Resp 16; Pulse Ox 100% on R/A; iw 19:22 BP 148 / 76; Pulse 91; Resp 16; Pulse Ox 98% on R/A; la1 20:54 BP 136 / 66; Pulse 84; Resp 18; Temp 96.7(TE); Pulse Ox 98% ; la1 08/01 00:03 BP 127 / 63; Pulse 85; Resp 17; Pulse Ox 99% on R/A; Pain 0/10; tl1 00:45 BP 120 / 51; Pulse 79; Resp 16 S; Pulse Ox 100% on R/A; jd3 07/31 16:07 Body Mass Index 29.83 (91.63 kg, 175.26 cm) aa5 MDM: 07/31 16:13 Patient medically screened. cp 19:30 Data reviewed: vital signs, nurses notes, lab test result(s), EKG, radiologic studies, cp CT scan, plain films. 19:30 Test interpretation: by ED physician or midlevel provider: ECG, plain radiologic cp studies. 19:47 Physician consultation: was contacted at 19:45, DR Goodman, [place] operator \T\[facility], cp will consult on patient. 20:35 Physician consultation: DR Matthew, hospitalist \T\[facility], will accept patient as cp transfer. 07/31 16:32 Order name: Basic Metabolic Panel; Complete Time: 17:38 cp 07/31 17:39 Interpretation: Normal except: GLUC 127; BUN 107; CRE 2.58; GFR 25. cp 07/31 16:32 Order name: CBC with Diff; Complete Time: 17:04 cp 03/02 17:05 Interpretation: Normal except: WBC 13.1; RBC 2.23; HGB 5.9; HCT 18.4; MCV 82.3; MCH cp 26.2; MCHC 31.9; RDW 17.1; GUIDO% 76.4; LYM% 8.0; MN% 12.5; NEUT A 10.0; MNA 1.6. 07/31 16:32 Order name: LFT's; Complete Time: 17:38 cp / 17:43 Interpretation: Normal except: AST 10; ALT 10; ALK 161; TP 6.1; ALB 2.9; A/G 0.9. cp 03/ 16:32 Order name: Magnesium; Complete Time: 17:38 cp / 16:32 Order name: NT PRO-BNP; Complete Time: 17:38 cp /02 17:44 Interpretation: Abnormal: NT PRO-BNP 1455. cp 03/ 16:32 Order name: PT-INR; Complete Time: 17:04 cp 03/ 17:45 Interpretation: Abnormal: PT 13.8. cp 03/ 16:32 Order name: Troponin (emerg Dept Use Only); Complete Time: 17:38 cp / 18:55 Interpretation: Within normal limits: TROPED < 0.02. cp / 16:32 Order name: Type And Screen cp 07/31 16:32 Order name: Ptt, Activated; Complete Time: 17:04 cp 03/02 17:06 Order name: XRAY Chest (1 view); Complete Time: 19:19 cp 03/ 17:16 Order name: Packed RBC Leukored -1 EDMS / 17:25 Order name: ABO/RH no charge; Complete Time: 17:38 EDMS /02 17:40 Order name: CT Abd/Pelvis - Without Cont; Complete Time: 19:19 cp /02 16:32 Order name: EKG; Complete Time: 16:32 cp /02 16:32 Order name: Cardiac monitoring; Complete Time: 16:51 cp /02 16:32 Order name: EKG - Nurse/Tech; Complete Time: 16:51 cp 07/31 16:32 Order name: IV Saline Lock; Complete Time: 16:51 cp 07/31 16:32 Order name: Labs collected and sent; Complete Time: 16:51 cp 03 16:32 Order name: O2 Per Protocol; Complete Time: 16:51 cp 07/31 16:32 Order name: O2 Sat Monitoring; Complete Time: 16:51 cp EC:57 Rate is 81 beats/min. Rhythm is irregularly irregular. QRS interval is prolonged at 102 cp msec. QT interval is normal. Interpreted by me. Reviewed by me. Administered Medications: 16:51 Drug: ProTONIX 40 mg Route: IVP; Site: right antecubital; la1 20:54 Follow up: Response: No adverse reaction la1 17:09 Drug: ProTONIX 8 mg/hr Route: IV; Rate: 25 ml/hr; Site: right antecubital; la1 20:54 Follow up: IV Status: Infusion continued upon transfer la1 08/01 01:05 Follow up: IV Status: Infusion continued upon transfer tl1 07/31 23:41 Drug: Ativan 1 mg Route: IVP; Infused Over: 2 mins; Site: left antecubital; tl1 08/01 01:05 Follow up: Response: No adverse reaction; Marked relief of symptoms; Anxiety decreased tl1 Disposition: 07/31/18 19:58 Transfer ordered to [facility]. Diagnosis are Unspecified kidney failure, Anemia in chronic diseases classified elsewhere, Gastrointestinal hemorrhage, unspecified. - Reason for transfer: Higher level of care. - Accepting physician is DR Matthew. - Condition is Stable. - Problem is new. - Symptoms have improved. Addendum: 08/02/2018 07:28 Co-signature as Attending Physician, Alvina Ponce MD. m a2 Signatures: Dispatcher [employer] EDCT Dunia Del Rosario RN RN iw Palak Bautista RN RN aa5 Sigifredo Garcia RN RN la1 Diane Jarrett RN RN tl1 Joe Reid PA PA cp Alzahri, Mohammad, MD MD ma2 Corrections: (The following items were deleted from the chart) 07/31 17:42 16:33 Abdomen Pelvis W Con+CT.RAD.BRZ ordered. EDMS EDMS 18:25 18:06 Home Meds: Metoprolol Tartrate Oral; iw iw 18:25 18:06 Home Meds: Xarelto Oral; iw 20:36 19:54 Physician consultation: was contacted at 19:50, regarding regarding transfer, to [facility]. DR Sanchez, hospitalist \T\[facility], will accept patient as transfer, :25 19:58 07/31/2018 19:58 Transfer ordered to [facility]. Diagnosis is cp Unspecified kidney failure; Anemia in chronic diseases classified elsewhere; Gastrointestinal hemorrhage, unspecified. Reason for transfer: Higher level of care. Accepting physician is DR Sanchez. Condition is Stable. Problem is new. Symptoms have improved. :49 16:35 Skin: cellulitis, is not appreciated, no rash present. [facility] 08/01 01:06 07/31 21:25 07/31/2018 19:58 Transfer ordered to [facility]. tl1 Diagnosis is Unspecified kidney failure; Anemia in chronic diseases classified elsewhere; Gastrointestinal hemorrhage, unspecified. Reason for transfer: Higher level of care. Accepting physician is DR Matthew. Condition is Stable. Problem is new. Symptoms have improved. cp
[2018-07-31] MEDS ORDERED: LORazepam 2 MG/ML VIAL ONE (23:50)
--- NOTE | 2018-08-02 09:16 | EKG ---
Test Date: 2018-07-31 Test Time: 16:41:01 Sky Cap: DANIELLE MEASUREMENT RESULTS: Intervals: Rate: 81 MA: QRSD: 102 QT: 410 QTc: 476 [place]: P: MA: QRS: 6 T: 61 INTERPRETIVE STATEMENTS: Atrial fibrillation Low voltage QRS Abnormal ECG No previous ECG available for comparison Electronically Signed On 08-02-18 09:15:54 FINE WIRE DRAWER by Ferny Call
== END 2018-08-01 01:06 | disposition short-term general hospital (02) ==
LOC: ER 15:59
PROC: 30233N1 Transfusion of Nonautologous Red Blood Cells into Peripheral Vein, Percutaneous Approach (ICD-10-PCS; principal; 2018-08-01)
DX: I12.9 Hypertensive chronic kidney disease with stage 1 through stage 4 chronic kidney disease, or unspecified chronic kidney disease (principal); N18.9 Chronic kidney disease, unspecified; D63.1 Anemia in chronic kidney disease; Z79.01 Long term (current) use of anticoagulants
CPT/HCPCS: 93005; 85025; 80048; 36415; 86900; 83735; 86850; 85610; 86901; 80076; 85730; 84484; 83880; 74176; 71045; 36430 ×2; 99285; C9113 ×2; P9016 ×2

== ENCOUNTER 2018-11-05 22:49 | Inpatient (IN) | payer OTHER, BC ==
--- NOTE | 2018-11-05 16:50 | R.PREADM ---
SCREENING DATE AND TIME 11/05/2018 15:31 (CDT) ANTICIPATED REHAB ADMISSION DATE 11/07/2018 REFERRING FACILITY [facility] REFERRAL DATE AND TIME 11/05/2018 15:31 (CDT) ACUTE ADMIT DATE 10/18/2018 Previous Rehabilitation(s): No. 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 Giorgio Leon M.D. MR# [id number] NAME TAM ESCALANTE ADDRESS [address] [place] [address] [address] [facility] PHONE [facility] [id number] DATE OF 1945 AGE 73 SSN# [id number] GENDER male MARITAL STATUS RACE white ADMIT FROM 02 - [facility] PRE-HOSPITAL LIVING SETTING 01 - Home (private home/apt. board/care, assisted living, halfway, transitional living) HOME TYPE AND DETAILS Type of home: single family house # of levels in the residence: 1 # of steps to enter the residence: 0 # of steps within the residence: 0 PRE-HOSPITAL LIVING WITH Family/Relatives FAMILY SUPPORT Yes PRIMARY FAMILY CONTACT NAME Aliya Escalante PRIMARY FAMILY CONTACT PHONE PHONE PRIMARY FAMILY CONTACT ON ADM.? no IS PRIMARY FAMILY CONTACT AUTH. REP.? no 1ST EMERGENCY CONTACT Aliya Escalante 1ST CONTACT PHONE PHONE 1ST CONTACT ON ADM. no IS 1ST CONTACT AUTH. REP.? no PHONE 2ND CONTACT ON ADM.? no PATIENT EMPLOYMENT STATUS Retired (for age) PATIENT EMPLOYER No Employer PAYOR INFORMATION: 1ST PAYOR NAME MEDICARE 1ST PAYOR PHONE [phone] 1ST PAYOR INJURY/ILLNESS DUE TO ACCIDENT? No ANOTHER [employer] RESPONSIBLE? No PRIMARY REHAB/ACUTE DIAGNOSIS: Acute renal Failure ONSET DATE 10/18/2018 REHAB IMPAIRMENT CATEGORY (BHARATI): 20 Miscellaneous (Misc) does NOT meet 60% rule PRIMARY DIAGNOSIS-RELATED SURGERIES: Permcath Placement COMORBID REHAB/ACUTE DIAGNOSES: - Non-Tiered Allergic rhinitis due to pollen (J30.1) Anemia Gout - N/A Liver Disease Kidney Disease CAD Gastric Ulcer Atrial Fibrillation Hypertension INTERVENTIONS: - CAD 02 sats Activity management Medications VS - Atrial Fibrillation Anticoagulation Medications VS - Hypertension Fluid management Medications VS RISK FOR COMPLICATIONS: - CAD CHF Cardiac Arrest [place] Pain - Atrial Fibrillation CVA Heart failure Limb embolus - Hypertension CVA Hypotension [place] TIA SUMMARY OF ACUTE HOSPITALIZATION: Pt. is a 73 yo Right-handed white male. On 10/18/2018 he was admitted to [facility] with diagnosis Acute renal Failure. His impairment category is Medically Complex Conditions 17 - Terminal Care (17.6). Pre-morbidly, Pt. was independent/mod-I in Self-Care, Sphincter Control, Transfers Control, Locomotio n, Communication, and Social Cognition; and he had good Sphincter Control. Currently, he has deficits of Transfers Control, Locomotion, Endurance, Balance, Safety Awareness, an d Self-Care. Pt. is now referred to [facility] for acute in-patient rehabilitation in order to maximize patient's functional independence in activities of daily living, strength, ROM, and mobi lity. Patient has realistic goal of being discharged at assistance level 6-Joel to reside at Home with Fam dale/Relatives. Tam Escalante is a 73 year old male that lives in a single cassie house. Patient is independent with ADLs and self care. On 10/18/2018, patient had abdominal Center and treated. He is now medically stable but in need of 24-hour nursing, doctor supervision and oversite while receiving active The patient is reasonably expected to participate in 3hours of therapy a day/15 hours per week and receive care with an intensive interdisciplinary approach. PAST MEDICAL HISTORY Allergic rhinitis due to pollen (J30.1) Atrial Fibrillation CAD Gastric Ulcer Hypertension Kidney Disease Liver Disease PAST SURGICAL HISTORY: Coronary Angioplasty with stent MEDICATION ALLERGIES: No Known Drug Allergies (NKDA) ENVIRONMENTAL ALLERGIES: None Known - Substance Allergies None Known - Other Allergies None Known CODE STATUS: Full code WEIGHT/HEIGHT/BMI: WEIGHT 208 lbs HEIGHT 5' 9" BMI 30.7 DIET: - Diet Type Regular - Diet - Solid Texture Regular - Diet - Liquid Texture Regular - Tube Feed N/A REVIEW OF SYSTEMS: - Gen Alert and awake Lying in bed No apparent distress Oriented to: person, time, and place - Vital Signs Temperature: 97.3 F SBP/DBP: 133/73 Pulse: 74 Resp: 18 Vital signs stable, afebrile - CVS RRR VITAL SIGNS Temperature: 97.3 F SBP/DBP: 133/73 Pulse: 74 Resp: 18 Vital signs stable, afebrile MEDICATIONS/TREATMENT: Other- See attached MAR (Medication Administration Record) [email or web address]. CURRENT SPHINCTER CONTROL: Pre-hospital bladder status: unspecified # of bladder accidents in the last 7 days prior to screenin Pre-hospital bowel status: continent # of bowel accidents in the last 7 days prior to screenin Last Bowel Movement Date: 11/05/2018 DETAILED CURRENT FUNCTIONAL STATUS: - Bladder accident frequency: Ind - No accidents in the past 7 days - Bowel accident frequency: Ind - No accidents in the past 7 days - Walking score based on distance walked: 2(5149ft) - Wheelchair score based on distance traveled: 0(N/A) FUNCTIONAL STATUS: - Self-Care A. Eating Ind Joel B. Grooming Ind Joel C. Bathing Ind sup D. Dressing - Upper Ind sup E. Dressing - Lower Ind sup F. Toileting Ind sup - Sphincter Control G: Bladder control Ind Ind H: Bowel control Ind Ind - Transfers Control I. Bed/Chair/Wheelchair Ind sup J. Toilet Ind sup K. Tub/Shower Ind ADNO - Locomotion L. Walk/Wheelchair (C) Ind CGA L. Walk/Wheelchair (W) Ind CGA M. Stairs Ind ADNO - Communication N. Comprehension (B) Ind Ind O. Expression (B) Ind Ind - Social Cognition P. Social Interaction Ind Ind Q. Problem Solving Ind Ind R. Memory Ind Ind - Endurance Fair - Balance Fair - Safety Awareness Fair CURRENT FUNC. DEFICITS: Transfers Control, Locomotion, Endurance, Balance, Safety Awareness, and Self-Care THERAPY NOTES FROM ACUTE CARE: Attached. SPECIAL NEEDS: - Safety Concerns Skin breakdown precautions needed due to skin breakdown risk PATIENT NEEDS ACTIVE AND ONGOING THERAPEUTIC INTERVENTION OF MULTIPLE THERAPY DISCIPLINES, INCLUDING: - Dietary and Nutrition Adequate Nutrition. Nutritional Education. Nutritional Supplements. PATIENT NEEDS CLOSE MEDICAL SUPERVISION BY A REHABILITATION PHYSICIAN FOR: Bowel and Bladder Management Coordination of Treatment Team Medical and Co-Morbidity Management DVT Management Pain Management PATIENT REQUIRES 24X7 REHAB NURSING FOR MEDICAL AND FUNCTIONAL MGT. OF THE FOLLOWING DEFICITS: ADL's Ambulation Bowel and Bladder Management Communication Disease Management Medication Management Patient/Family Education Providing Safe Environment Transfers Pain Management DVT Management PATIENT REQUIRES INTENSIVE, COORDINATED INTERDISCIPLINARY APPROACH TO REHAB: Arranging Home Equipment/Services Discharge Planning Family Intervention/Training Water Chaser/Case Management PATIENT REHAB POTENTIAL: Expected level of measurable improvement will be of a practical value to patient's functional capacit y or adaptations to impairments Has a viable Discharge Plan Medically appropriate; condition is sufficiently stable to participate in intensive rehab program Patient is able and expected to receive 3 hours of individualized therapy daily on at least 5 of ever y 7 days Patient's prognosis for significant practical improvement within a reasonable period of time appears Good DISCHARGE PLAN: - Estimated Length of Stay (days) 13. - Consensus on plan Discharge plan has been discussed with primary caregiver. Patient/Family is in agreement with the mar n. Primary caregiver is in agreement with the plan. - Patient/Family Goals Return home with assistance. - Planned Living Setting Upon Discharge Home, to live with Family/Relatives. Transitional Living. RECOMMENDED CARE LEVEL: IRF RECOMMENDATION DETAILS: Recommended Admission to Comprehensive Rehabilitation Program to Increase Functional [place] SCREENER'S COMPLETENESS CONFIRMATION: - Screening Confirmation The patient data collection on this preadmission screening form is finished PHYSICIANS REVIEW AND ADMISSION DETERMINATION Admit - Based on my review of the Pre-Admission Screening results, in my medical judgment and experie nce, I concur with the findings and recommend admission to [facility], as this patient requires an IRF level of care. SIGNATURE PANEL: Clinical Liaison - [electronically] signed by Flako Milligan on 11/05/2018 at 16:38 (CDT) Physician Reviewer - [electronically] signed by Dr. Giorgio Leon M.D. on 11/05/2018 at 16:51 (CDT )
--- OUTSIDE RECORDS SUMMARY | 2018-11-05 22:51 | XMS REPORT | Clinical Summary ---
:1945 Author Organization [facility] Address [address] [place] [address] Care Team Providers Name Role Phone Asked, [...] VACCINE (1 of 2 - PCV13) 2011 INFLUENZA VACCINE 12/30/2018 Results Not on fileafter 11/04/2017 Insurance Payer Benefit Plan / Subscriber ID Effective Dates Phone Address Type Group MEDICARE MEDICARE PART A xxxxxxxxxx 2011-Present [place], [place] Medicare AND B BCBS BCBS CHOICE xxxxxxxxxxxx 2013-Present PPO PPO/[employer] PPO Advance Directives Patient has advance care planning documents on file. For more information, please contact:[place] [phone] [place] [address]
--- OUTSIDE RECORDS SUMMARY | 2018-11-05 22:52 | XMS REPORT | Clinical Summary ---
:1945 Author Organization [facility] Address [address] [place] [address] Care Team Providers Name Role Phone Darnell Harrison Primary Care Provider Allergies No Known Allergies Medications Medication Sig Dispensed Refills Start Date End Date Status metoprolol Take 50 mg 0 Active (LOPRESSOR) [...] gram Tab Take by 0 Active mouth. furosemide (LASIX) 20 Take 20 mg 0 Active MG tablet by mouth daily. rivaroxaban (XARELTO) Take 20 mg 0 Active 20 mg Tab tablet by mouth daily. folic acid (FOLVITE) Take 1 mg by 0 Active 1 MG tablet mouth daily. spironolactone Take 50 mg 0 Active (ALDACTONE) 50 MG by mouth tablet daily. vitamin E 400 UNIT Take 400 0 Active capsule Units by mouth daily. sertraline (ZOLOFT) Take 1 60 tablet 0 08/03/2018 08/03/2019 Active 50 MG tablet tablet (50 mg total) by mouth daily. aspirin 81 MG Take 81 mg 0 08/01/2018 Discontinued chewable tablet by mouth daily. digoxin (LANOXIN) Take 125 mcg 0 08/01/2018 Discontinued 0.125 MG tablet by mouth daily. hydrOXYzine (ATARAX) Take 25 mg 0 08/01/2018 Discontinued 25 MG tablet by mouth every night as needed. colchicine (COLCRYS) Take 0.6 mg 0 08/01/2018 Discontinued 0.6 mg tablet by mouth as needed. thiamine 100 MG Take 100 mg 0 08/01/2018 Discontinued tablet by mouth daily. omega-3 acid ethyl Take 2 g by 0 08/01/2018 Discontinued esters (LOVAZA) 1 mouth 2 gram capsule (two) times daily. apixaban (ELIQUIS) Take 2.5 mg 0 08/01/2018 Discontinued 2.5 mg Tab tablet by mouth 2 (two) times daily. sertraline (ZOLOFT) TAKE ONE (1) 30 tablet 2 10/19/2017 08/01/2018 Discontinued 50 MG TABLET(S) BY tabletIndications: MOUTH ONCE [...] past. He is followed closely by his wellness nurse at present denies any chest pain but symptoms of progressive fatigue and dyspnea concerning. He will need evaluation. My recommendation would be to go to the emergency room for admission and assessment. Patient refusing initially, other check labs . GI bleed 01/05/2013 Encounters Date Type Specialty Care Team Description 08/02/2018 Anesthesia Event Gastroenterology Puma Castañeda MD 08/02/2018 Surgery Gastroenterology Skyler Carrillo, UPPER ENDOSCOPY 08/01/2018 - Hospital Encounter Cardiology Diego Matthew 08/03/2018 MD Kenan 06/24/2018 Outside Orders Central Scheduling Emigdio Goncalves, Acute renal MD failure, unspecified acute renal failure type (HCC) (Primary Dx) 02/24/2018 Telephone Hepatology Katerina Pace, RN after 11/04/2017 Family History Medical History Relation Name Comments Gout Father Hypertension Father Heart disease Mother Relation Name Status Comments Father Mother Social History Tobacco Use Types Packs/Day Years Used Date Former Smoker Smokeless Tobacco: Former User Quit: 06/01/2005 Alcohol Use Drinks/Week oz/Week Comments Yes vodka+ apple juice quit Sex Assigned at Date Recorded Not on file Job Start Date Occupation Industry Not on file Not on file Not on file Travel History Travel Start Travel End No recent travel history available. Last Filed Vital Signs Vital Sign Reading Time Taken Blood Pressure 132/84 08/03/2018 12:16 PM HOOP BENDING MACHINE OPERATOR Pulse 89 08/03/2018 12:16 PM HOOP BENDING MACHINE OPERATOR Temperature 37.1 C (98.7 F) 08/03/2018 12:16 PM HOOP BENDING MACHINE OPERATOR Respiratory Rate 20 08/03/2018 12:16 PM HOOP BENDING MACHINE OPERATOR Oxygen Saturation 99% 08/03/2018 12:16 PM HOOP BENDING MACHINE OPERATOR Inhaled Oxygen Concentration - - Weight 88.6 kg (195 lb 6.4 oz) 08/03/2018 8:18 AM HOOP BENDING MACHINE OPERATOR Height - - Body Mass Index 28.86 08/03/2018 8:18 AM HOOP BENDING MACHINE OPERATOR Plan of Treatment Not on file Procedures Procedure Name Priority Date/Time Associated Diagnosis Comments REPORT OF PROCEDURE - 08/06/2018 10:30 ENDOSCOPY SCAN AM HOOP BENDING MACHINE OPERATOR RHYTHM STRIP - SCAN 08/06/2018 10:30 AM HOOP BENDING MACHINE OPERATOR TRANSFUSION SERVICE 08/03/2018 6:05 REPORT - SCAN PM HOOP BENDING MACHINE OPERATOR (CELLAVISION MANUAL Routine 08/03/2018 6:04 Results for this DIFF) AM HOOP BENDING MACHINE OPERATOR procedure are in the results section. CBC W/PLT COUNT & Routine 08/03/2018 6:04 Results for this AUTO DIFFERENTIAL AM HOOP BENDING MACHINE OPERATOR procedure are in the results section. B-TYPE NATRIURETIC Routine 08/03/2018 6:04 Results for this FACTOR (BNP) AM HOOP BENDING MACHINE OPERATOR procedure are in the results section. CBC W/PLT COUNT & Routine 08/03/2018 6:04 Results for this AUTO DIFFERENTIAL AM HOOP BENDING MACHINE OPERATOR procedure are in the results section. PHOSPHORUS Routine 08/03/2018 6:04 Results for this AM HOOP BENDING MACHINE OPERATOR procedure are in the results section. MAGNESIUM Routine 08/03/2018 6:04 Results for this AM HOOP BENDING MACHINE OPERATOR procedure are in the results section. COMPREHENSIVE Routine 08/03/2018 6:04 Results for this METABOLIC PANEL AM HOOP BENDING MACHINE OPERATOR procedure are in the results section. CALCIUM, IONIZED Routine 08/03/2018 6:04 Results for this AM HOOP BENDING MACHINE OPERATOR procedure are in the results section. XR CHEST 1 VIEW Routine 08/03/2018 12:39 Results for this PORTABLE/BEDSIDE AM HOOP BENDING MACHINE OPERATOR procedure are in the results section. PREPARE LEUKO-REDUCED Routine 08/02/2018 11:54 Results for this RBC PM HOOP BENDING MACHINE OPERATOR procedure are in the results section. TRANSFUSION SERVICE 08/02/2018 6:00 REPORT - SCAN PM HOOP BENDING MACHINE OPERATOR REPORT OF PROCEDURE - 08/02/2018 4:51 ENDOSCOPY URL PM HOOP BENDING MACHINE OPERATOR REPORT OF PROCEDURE - 08/02/2018 4:39 ENDOSCOPY URL PM HOOP BENDING MACHINE OPERATOR COLONOSCOPY 08/02/2018 4:00 Gastrointestinal PM HOOP BENDING MACHINE OPERATOR hemorrhage, unspecified gastrointestinal hemorrhage type UPPER ENDOSCOPY 08/02/2018 4:00 Gastrointestinal PM HOOP BENDING MACHINE OPERATOR hemorrhage, unspecified gastrointestinal hemorrhage type BASIC METABOLIC PANEL Routine 08/02/2018 6:41 Results for this (7) AM HOOP BENDING MACHINE OPERATOR procedure are in the results section. CBC (HEMOGRAM ONLY) Routine 08/02/2018 6:41 Results for this AM HOOP BENDING MACHINE OPERATOR procedure are in the results section. POCT-GLUCOSE METER Routine 08/01/2018 9:16 Results for this PM HOOP BENDING MACHINE OPERATOR procedure are in the results section. BASIC METABOLIC PANEL STAT 08/01/2018 6:50 Results for this (7) PM HOOP BENDING MACHINE OPERATOR procedure are in the results section. TRANSFUSE Routine 08/01/2018 3:33 LEUKO-REDUCED RED PM HOOP BENDING MACHINE OPERATOR BLOOD CELLS CREATININE, RANDOM Routine 08/01/2018 1:01 Results for this URINE PM HOOP BENDING MACHINE OPERATOR procedure are in the results section. UREA NITROGEN, RANDOM Routine 08/01/2018 1:01 Results for this URINE PM HOOP BENDING MACHINE OPERATOR procedure are in the results section. SODIUM, RANDOM URINE Routine 08/01/2018 1:01 Results for this PM HOOP BENDING MACHINE OPERATOR procedure are in the results section. URINALYSIS W/ Routine 08/01/2018 1:01 Results for this MICROSCOPIC PM HOOP BENDING MACHINE OPERATOR procedure are in the results section. CBC W/PLT COUNT & Routine 08/01/2018 6:04 Results for this AUTO DIFFERENTIAL AM HOOP BENDING MACHINE OPERATOR procedure are in the results section. TYPE AND SCREEN, SURENDRA 08/01/2018 6:04 Results for this AUTOMATED AM HOOP BENDING MACHINE OPERATOR procedure are in the results section. PT/APTT Routine 08/01/2018 6:04 Results for this AM HOOP BENDING MACHINE OPERATOR procedure are in the results section. MAGNESIUM Routine 08/01/2018 6:04 Results for this AM HOOP BENDING MACHINE OPERATOR procedure are in the results section. BASIC METABOLIC PANEL Routine 08/01/2018 6:04 Results for this (7) AM HOOP BENDING MACHINE OPERATOR procedure are in the results section. CBC W/PLT COUNT & Routine 08/01/2018 6:04 Results for this AUTO DIFFERENTIAL AM HOOP BENDING MACHINE OPERATOR procedure are in the results section. after 11/04/2017 Results EKG-SCANNED (08/06/2018 10:30 AM HOOP BENDING MACHINE OPERATOR) Narrative Performed At RHYTHM STRIP - SCAN (08/06/2018 10:30 AM HOOP BENDING MACHINE OPERATOR) Narrative Performed At TRANSFUSION SERVICE REPORT - SCAN (08/03/2018 6:05 PM HOOP BENDING MACHINE OPERATOR)Only the most recent of2 resultswithin the time period is included. Narrative Performed At Manual Differential (08/03/2018 6:04 AM HOOP BENDING MACHINE OPERATOR) % Neutros 82 % [facility] % Lymphs 5 % [facility] % Monos 6 % [facility] % Eos 6 % [facility] % Baso 1 % [facility] # Neutros 8.61 (H) 1.78 - 5.38 K/ul [facility] # Lymphs 0.53 (L) 1.32 - 3.57 K/ul [facility] # Monos 0.63 0.30 - 0.82 K/uL [facility] # Eos 0.63 (H) 0.04 - 0.54 K/uL [facility] # Baso 0.11 (H) 0.01 - 0.08 K/uL [facility] Total Counted 100 [facility] nRBC (manual) 1 (H) 0 - 0 /100 WBC [facility] WBC Morphology Normal [facility] Platelet Morphology Normal [facility] Polychromasia 1+ few [facility] Hypochromia 1+ few [facility] Anisocytosis 1+ few [facility] Microcytes 1+ few [facility] Poikilocytes 1+ few [facility] Elliptocytes 1+ few [facility] Ovalocytes 2+ moderate [facility] Tear Drop Cells 1+ few [facility] Artifact Present [facility] Platelet Conc Adequate [facility] Specimen Blood Narrative Performed At Received comment: [facility] User comments: Slide comments: Performing Organization Address City/State/Zipcode Phone Number [facility] [address] [place] [address] CENTER Calcium, Ionized (08/03/2018 6:04 AM HOOP BENDING MACHINE OPERATOR) Calcium, Ion 1.10 (L) 1.12 - 1.27 mmol/L [facility] pH, Blood 7.35 [facility] Specimen Blood Performing Organization Address City/State/Zipcode Phone Number [address] [address] [place] CBC with platelet count + automated diff (08/03/2018 6:04 AM HOOP BENDING MACHINE OPERATOR)Only the most recent of2 resultswithin the time period is included. WBC 10.5 3.5 - 10.5 K/L [facility] RBC 2.93 (L) 4.63 - 6.08 M/L [facility] Hemoglobin 7.5 (L) 13.7 - 17.5 GM/DL [facility] Hematocrit 25.7 (L) 40.1 - 51.0 % [facility] MCV 87.7 79.0 - 92.2 fL [facility] MCH 25.6 (L) 25.7 - 32.2 pg [facility] MCHC 29.2 (L) 32.3 - 36.5 GM/DL [facility] RDW 16.9 (H) 11.6 - 14.4 % [facility] Platelets 321 150 - 450 K/CU MM [facility] MPV 10.1 9.4 - 12.4 fL [facility] nRBC 0 0 - 0 /100 WBC [facility] Specimen Blood Performing Organization Address City/State/Zipcode Phone Number [facility] [address] [place] [address] [phone] CENTER Phosphorus (08/03/2018 6:04 AM HOOP BENDING MACHINE OPERATOR) Phosphorus 4.3 2.3 - 4.7 mg/dL [facility] Specimen Blood Performing Organization Address City/State/Zipcode Phone Number [address] [address] [phone] CENTER B-type Natriuretic Factor (BNP) (08/03/2018 6:04 AM HOOP BENDING MACHINE OPERATOR) BNP 646 (H) 0 - 100 pg/mL [facility] Specimen Blood Performing Organization Address City/State/Zipcode Phone Number [address] [address] CENTER Magnesium (08/03/2018 6:04 AM HOOP BENDING MACHINE OPERATOR)Only the most recent of2 resultswithin the time period is included. Magnesium 1.7 1.6 - 2.6 mg/dL [facility] Specimen Blood Performing Organization Address City/[facility]/Zipcode Phone Number [address] [address] [phone] CENTER Comprehensive metabolic panel (08/03/2018 6:04 AM HOOP BENDING MACHINE OPERATOR) Protein, Total 5.9 (L) 6.0 - 8.3 gm/dL [facility] Albumin 3.6 3.5 - 5.0 g/dL [facility] Alkaline Phosphatase 130 40 - 150 U/L [facility] Total Bilirubin 1.0 0.2 - 1.2 mg/dL [facility] Sodium 139 136 - 145 meq/L [facility] Potassium 4.5 3.5 - 5.1 meq/L [facility] Chloride 108 (H) 98 - 107 meq/L [facility] CO2 22 22 - 29 meq/L [facility] BUN 51 (H) 7 - 21 mg/dL [facility] Creatinine 1.76 (H) 0.57 - 1.25 mg/dL [facility] Glucose 91 70 - 105 mg/dL [facility] Calcium 9.3 8.4 - 10.2 mg/dL [facility] AST 12 5 - 34 U/L [facility] ALT 6 6 - 55 U/L [facility] EGFR 38Comment: ESTIMATED GFR mL/min/1.73 sq m [facility] IS NOT ACCURATE [facility] CREATININE CLEARANCE IN PREDICTING GLOMERULAR FILTRATION RATE. ESTIMATED GFR IS NOT APPLICABLE FOR DIALYSIS PATIENTS. Specimen Blood Performing Organization Address City/[facility]/Zipcode Phone Number [facility] [address] [place] [address] [phone] CENTER XR chest 1 view portable / bedside (08/03/2018 12:39 AM HOOP BENDING MACHINE OPERATOR) Specimen Narrative Performed At FINAL REPORT Layar INDICATION: edema COMPARISON: January 05, 2013 TECHNIQUE: Single frontal view of the chest. FINDINGS: Lungs and pleura: Clear lungs. No effusion. Heart and mediastinum: Unchanged cardiomegaly. Unremarkable mediastinal contours. Osseous structures: No acute abnormality. Other: None. IMPRESSION: No pulmonary edema. Signed: Guerline Zuleta MD Report Verified Date/Time:08/03/2018 00:54:17 Reading Location: [address] Neuro Reading Room Procedure Note Interface, External Ris In - 08/03/2018 12:56 AM HOOP BENDING MACHINE OPERATOR FINAL REPORT INDICATION: edema COMPARISON: January 05, 2013 TECHNIQUE: Single frontal view of the chest. FINDINGS: Lungs and pleura: Clear lungs. No effusion. Heart and mediastinum: Unchanged cardiomegaly. Unremarkable mediastinal contours. Osseous structures: No acute abnormality. Other: None. IMPRESSION: No pulmonary edema. Signed: Guerline Zuleta MD Report Verified Date/Time: 08/03/2018 00:54:17 Reading Location: [address] Neuro Reading Room Performing Organization Address [facility]/Zipcode Phone Number [facility] Prepare Leuko-Red RBC (08/02/2018 11:54 PM HOOP BENDING MACHINE OPERATOR) CROSSMATCH COMPATIBLE SAFETRACE TX Unit ABO O Pos SAFETRACE TX UNIT NUMBER [id number] SAFETRACE TX Status TX_TIMEINCHART SAFETRACE TX Blood Bank Product RED BLOOD CELLS SAFETRACE TX PRODUCT CODE [id number] SAFETRACE [place] Specimen Other Performing Organization Address City/State/Zipcode Phone Number [employer] [place] REPORT OF PROCEDURE - ENDOSCOPY URL (08/02/2018 4:51 PM HOOP BENDING MACHINE OPERATOR) Narrative Performed At REPORT OF PROCEDURE - ENDOSCOPY URL (08/02/2018 4:39 PM HOOP BENDING MACHINE OPERATOR) Narrative Performed At CBC (Hemogram only) (08/02/2018 6:41 AM HOOP BENDING MACHINE OPERATOR) WBC 10.6 (H) 3.5 - 10.5 K/L [facility] RBC 2.97 (L) 4.63 - 6.08 M/L [facility] Hemoglobin 7.9 (L) 13.7 - 17.5 GM/DL [facility] Hematocrit 25.7 (L) 40.1 - 51.0 % [facility] MCV 86.5 79.0 - 92.2 fL [facility] MCH 26.6 25.7 - 32.2 pg [facility] MCHC 30.7 (L) 32.3 - 36.5 GM/DL [facility] RDW 16.5 (H) 11.6 - 14.4 % [facility] Platelets 319 150 - 450 K/CU MM [facility] MPV 10.4 9.4 - 12.4 fL [facility] nRBC 1 (H) 0 - 0 /100 WBC [facility] Specimen Blood Performing Organization Address City/State/Zipcode Phone Number [facility] [address] [place] [address] CENTER Basic Metabolic Panel (08/02/2018 6:41 AM HOOP BENDING MACHINE OPERATOR)Only the most recent of3 resultswithin the time period is included. Sodium 138 136 - 145 meq/L [facility] Potassium 4.8 3.5 - 5.1 meq/L [facility] Chloride 107 98 - 107 meq/L [facility] CO2 19 (L) 22 - 29 meq/L [facility] BUN 67 (H) 7 - 21 mg/dL [facility] Creatinine 2.06 (H) 0.57 - 1.25 mg/dL [facility] Glucose 110 (H) 70 - 105 mg/dL [facility] Calcium 9.5 8.4 - 10.2 mg/dL [facility] EGFR 32Comment: ESTIMATED GFR IS mL/min/1.73 sq m [facility] NOT ACCURATE CREATININE [facility] CENTER CLEARANCE IN PREDICTING GLOMERULAR FILTRATION RATE. ESTIMATED GFR IS NOT APPLICABLE FOR DIALYSIS PATIENTS. Specimen Blood Performing Organization Address City/[facility] Phone Number [address] [address] CENTER POC-Glucose meter (08/01/2018 9:16 PM HOOP BENDING MACHINE OPERATOR) POC-Glucose Meter 158 (H)Comment: TESTED AT 70 - 110 mg/dL [address] [address] Specimen Blood Performing Organization Address City/[facility] Phone Number [address] [address] CENTER Transfuse Leuko-Red RBC (08/01/2018 3:33 PM HOOP BENDING MACHINE OPERATOR)Only the most recent of2 resultswithin the time period is included.Urea Nitrogen, random urine (2018 1:01 PM HOOP BENDING MACHINE OPERATOR) Urea Nitrogen, Ur 694 mg/dL [facility] Specimen Urine Narrative Performed At Reference Range: No Normals [facility] Performing Organization Address City/State/Zipcode Phone Number [address] [address] [phone] [place] Sodium, random urine (08/01/2018 1:01 PM HOOP BENDING MACHINE OPERATOR) Sodium Urine 70 meq/L [facility] Specimen Urine Narrative Performed At Reference Range: No Normals [facility] Performing Organization Address City/[facility] [place] [address] [place] Creatinine, random urine (08/01/2018 1:01 PM HOOP BENDING MACHINE OPERATOR) Creatinine, Ur 40.1 mg/dL [facility] Specimen Urine Narrative Performed At Reference Range: No Normals [facility] Performing Organization Address [facility] Phone Number [address] [address] [place] Urinalysis w/Microscopic (08/01/2018 1:01 PM HOOP BENDING MACHINE OPERATOR) Color, UA Light Yellow [facility] Clarity, UA Clear [facility] Specific Hardy, UA 1.010 1.001 - 1.035 [facility] pH, UA 6.5 5.0 - 8.0 [facility] Protein, UA Negative Negative [facility] Glucose, UA Negative Negative [facility] Ketones, UA Negative Negative [facility] Bilirubin, UA Negative Negative [facility] Blood, UA Negative Negative [facility] Nitrite, UA Negative Negative [facility] Leukocytes, UA Negative Negative [facility] Urobilinogen, UA 0.2 0.2 - 1.0 mg/dL [facility] RBC, UA 0 /HPF [facility] WBC, UA 0 /HPF [facility] Specimen Source [facility] Specimen Urine Performing Organization Address [facility]/Zipcode Phone Number [facility] [address] [place] [place], [place] [address] [phone] CENTER Type and screen, automated (08/01/2018 6:04 AM HOOP BENDING MACHINE OPERATOR) ABO/RH AUTOMATED (BEAKER) O POSITIVE [facility] Ab Scrn NEGATIVE [facility] Specimen Blood Performing Organization Address [facility] Phone Number [facility] [address] [place] [address] [phone] PT/aPTT (08/01/2018 6:04 AM HOOP BENDING MACHINE OPERATOR) Protime 15.7 (H) 11.7 - 14.7 seconds [facility] INR 1.2 <=5.9 [facility] PTT 31.7 22.5 - 36.0 seconds [facility] Specimen Blood Narrative Performed At RECOMMENDED COUMADIN/WARFARIN INR THERAPY [facility] RANGES STANDARD DOSE: 2.0 - 3.0 Includes: PROPHYLAXIS for venous thrombosis, systemic embolization; TREATMENT for venous thrombosis and/or pulmonary embolus. HIGH RISK: Target INR is 2.5-3.5 for patients with mechanical heart valves. Performing Organization Address [facility] Phone Number [facility] [address] [place] [address] [phone] CENTER after 11/04/2017 Insurance Payer Benefit Plan / Subscriber ID Type Phone Address Group MEDICARE MEDICARE A B xxxxxxxxxxx Medicare BLUE CROSS/BLUE [place] IN[place]MN[place] xxxxxxxxxxxx O [phone] [address] [place] [address] [phone] (Work) Advance Directives For more information, please contact:[place] [address] [place] [phone] Code Status Date Activated Date Inactivated Comments Full Code 08/01/2018 3:40 AM 08/03/2018 8:32 PM This code status was determined by: Patient Code ONE 01/11/2013 7:33 PM 01/13/2013 7:59 PM All possible means of support including;cardiac massage, mechanical ventilation, and defibrillation will be used to support life.
--- OUTSIDE RECORDS SUMMARY | 2018-11-05 22:53 | XMS REPORT ---
:1945 [facility] [address] [place] [address] Care Team Providers Name Role Phone ARIA NGUYEN Unavailable Unavailable Payers Payer Name Policy Type Policy Number Effective Date Expiration Date Problems This patient has no known problems. Allergies, Adverse Reactions, Alerts Allergy Allergy Status Severity Reaction(s) Onset Inactive Treating Comments Name Type Date Date Clinician No Known DA Active U 2018-05 Allergies -03 00:00:0 0 Medications This patient has no known medications. Results Test Description Test Time Test Comments Text Results Atomic Results Result Comments (CELLAVISION MANUAL DIFF) 2018-08-03 14:27:00 Test Item Value Reference Range Comments NEUTROPHILS - REL (CELLAVISION)(BEAKER) (test cwqp=7309) 82 % LYMPHOCYTES - REL (CELLAVISION)(BEAKER) (test kler=7595) 5 % MONOCYTES - REL (CELLAVISION)(BEAKER) (test kikk=5787) 6 % EOSINOPHILS - REL (CELLAVISION)(BEAKER) (test muwq=9285) 6 % BASOPHILS - REL (CELLAVISION)(BEAKER) (test xkaf=1265) 1 % NEUTROPHILS - ABS (CELLAVISION)(BEAKER) (test uhel=3942) 8.61 K/ul 1.78-5.38 LYMPHOCYTES - ABS (CELLAVISION)(BEAKER) (test pbha=5940) 0.53 K/ul 1.32-3.57 MONOCYTES - ABS (CELLAVISION)(BEAKER) (test wlel=5311) 0.63 K/uL 0.30-0.82 EOSINOPHILS - ABS (CELLAVISION)(BEAKER) (test dbtj=1203) 0.63 K/uL 0.04-0.54 BASOPHILS - ABS (CELLAVISION)(BEAKER) (test dlla=4848) 0.11 K/uL 0.01-0.08 TOTAL COUNTED (BEAKER) (test hhss=2432) 100 MANUAL NRBC PER 100 CELLS (BEAKER) (test ljsi=1066) 1 /100 WBC 0-0 WBC MORPHOLOGY (BEAKER) (test rtwx=249) Normal PLT MORPHOLOGY (BEAKER) (test vbkl=428) Normal POLYCHROMATOPHILLIC RBCS(BEAKER) (test gfnc=236) 1+ few HYPOCHROMIA (BEAKER) (test cagf=653) 1+ few ANISOCYTOSIS (BEAKER) (test fjpi=390) 1+ few MICROCYTES (BEAKER) (test fbng=573) 1+ few POIKILOCYTES (BEAKER) (test sibc=747) 1+ few ELLIPTOCYTES (BEAKER) (test cvtq=597) 1+ few OVALOCYTES (BEAKER) (test nbdb=155) 2+ moderate TEAR DROP CELLS (BEAKER) (test duxu=468) 1+ few ARTIFACT (CELLAVISION)(BEAKER) (test ckat=2105) Present PLATELET CONCENTRATION (CELLAVISION)(BEAKER) (test qapt=0913) Adequate Received comment: User comments: Slide comments:CALCIUM, [id number] 07:12 :00 Test Item Value Reference Range Comments CALCIUM IONIZED (BEAKER) (test obpd=733) 1.10 mmol/L 1.12-1.27 PH, BLOOD (BEAKER) (test xbrt=8223) 7.35 [id number] 06:59:00 Test Item Value Reference Range Comments PHOSPHORUS (BEAKER) (test whax=898) 4.3 mg/dL 2.3-4.7 [id number] 06:59:00 Test Item Value Reference Range Comments MAGNESIUM (BEAKER) (test iaif=703) 1.7 mg/dL 1.6-2.6 COMPREHENSIVE METABOLIC [id number] 06:59:00 Test Item Value Reference Range Comments TOTAL PROTEIN (BEAKER) 5.9 gm/dL 6.0-8.3 (test nbxp=310) ALBUMIN (BEAKER) (test 3.6 g/dL 3.5-5.0 jzyt=6463) ALKALINE PHOSPHATASE 130 U/L 40-150 (BEAKER) (test lbtu=099) BILIRUBIN TOTAL (BEAKER) 1.0 mg/dL 0.2-1.2 (test uyol=793) SODIUM (BEAKER) (test 139 meq/L 136-145 dqgl=637) POTASSIUM (BEAKER) (test 4.5 meq/L 3.5-5.1 mxxy=816) CHLORIDE (BEAKER) (test 108 meq/L 98-107 fzxn=020) CO2 (BEAKER) (test 22 meq/L 22-29 jfwk=094) BLOOD UREA NITROGEN 51 mg/dL 7-21 (BEAKER) (test slhy=783) CREATININE (BEAKER) (test 1.76 mg/dL 0.57-1.25 shil=630) GLUCOSE RANDOM (BEAKER) 91 mg/dL 70-105 (test eyce=283) CALCIUM (BEAKER) (test 9.3 mg/dL 8.4-10.2 zklu=311) AST (SGOT) (BEAKER) (test 12 U/L 5-34 qdpg=340) ALT (SGPT) (BEAKER) (test 6 U/L 6-55 yfrh=921) EGFR (BEAKER) (test 38 mL/min/1.73 sq m ESTIMATED GFR IS NOT hdtk=4734) ACCURATE CREATININE CLEARANCE IN PREDICTING GLOMERULAR FILTRATION RATE. ESTIMATED GFR IS NOT APPLICABLE FOR DIALYSIS PATIENTS. B-TYPE NATRIURETIC FACTOR (BNP)2018-08-03 06:47:00 Test Item Value Reference Range Comments B-TYPE NATRIURETIC PEPTIDE (BEAKER) (test 646 pg/mL 0-100 bmfs=759) CBC W/PLT COUNT & AUTO [id number] 06:32:00 Test Item Value Reference Range Comments WHITE BLOOD CELL COUNT (BEAKER) (test ther=012) 10.5 K/ L 3.5-10.5 RED BLOOD CELL COUNT (BEAKER) (test ffsm=533) 2.93 M/ L 4.63-6.08 HEMOGLOBIN (BEAKER) (test kqvn=300) 7.5 GM/DL 13.7-17.5 HEMATOCRIT (BEAKER) (test qzyf=164) 25.7 % 40.1-51.0 MEAN CORPUSCULAR VOLUME (BEAKER) (test hfdf=104) 87.7 fL 79.0-92.2 MEAN CORPUSCULAR HEMOGLOBIN (BEAKER) (test 25.6 pg 25.7-32.2 gytp=467) MEAN CORPUSCULAR HEMOGLOBIN CONC (BEAKER) (test 29.2 GM/DL 32.3-36.5 usrv=139) RED CELL DISTRIBUTION WIDTH (BEAKER) (test 16.9 % 11.6-14.4 repy=589) PLATELET COUNT (BEAKER) (test kqlk=908) 321 K/CU MM 150-450 MEAN PLATELET VOLUME (BEAKER) (test xiuo=534) 10.1 fL 9.4-12.4 NUCLEATED RED BLOOD CELLS (BEAKER) (test 0 /100 WBC 0-0 kzqb=135) RAD, CHEST, 1 VIEW, NON [id number] 00:54:00Reason for exam:->edemaShould this be performed at the bedside?->YesFINAL REPORT INDICATION: edema COMPARISON: January 05, 2013 TECHNIQUE: Single frontal view of the chest. FINDINGS: Lungs and pleura: Clear lungs. No effusion.Heart and mediastinum:Unchanged cardiomegaly. Unremarkable mediastinal contours.Osseous structures: No acute abnormality.Other: None. IMPRESSION: No pulmonary edema. Signed: Guerline Zuleta MDReport Verified Date/Time: 08/03/2018 00:54:17 Reading Location: [address] Neuro Reading Room BASIC METABOLIC [id number] 07:08:00 Test Item Value Reference Range Comments SODIUM (BEAKER) (test 138 meq/L 136-145 apmj=960) POTASSIUM (BEAKER) (test 4.8 meq/L 3.5-5.1 erru=701) CHLORIDE (BEAKER) (test 107 meq/L 98-107 lozo=462) CO2 (BEAKER) (test 19 meq/L 22-29 wohe=936) BLOOD UREA NITROGEN 67 mg/dL 7-21 (BEAKER) (test hmvf=801) CREATININE (BEAKER) (test 2.06 mg/dL 0.57-1.25 wmhi=319) GLUCOSE RANDOM (BEAKER) 110 mg/dL 70-105 (test hxry=299) CALCIUM (BEAKER) (test 9.5 mg/dL 8.4-10.2 jpnb=715) EGFR (BEAKER) (test 32 mL/min/1.73 sq m ESTIMATED GFR IS NOT pcli=1588) ACCURATE CREATININE CLEARANCE IN PREDICTING GLOMERULAR FILTRATION RATE. ESTIMATED GFR IS NOT APPLICABLE FOR DIALYSIS PATIENTS. CBC (HEMOGRAM ONLY)2018-08-02 06:53:00 Test Item Value Reference Range Comments WHITE BLOOD CELL COUNT (BEAKER) (test wqsg=176) 10.6 K/ L 3.5-10.5 RED BLOOD CELL COUNT (BEAKER) (test cqxd=267) 2.97 M/ L 4.63-6.08 HEMOGLOBIN (BEAKER) (test ssoy=808) 7.9 GM/DL 13.7-17.5 HEMATOCRIT (BEAKER) (test qmcv=424) 25.7 % 40.1-51.0 MEAN CORPUSCULAR VOLUME (BEAKER) (test ocwy=922) 86.5 fL 79.0-92.2 MEAN CORPUSCULAR HEMOGLOBIN (BEAKER) (test 26.6 pg 25.7-32.2 aqxa=153) MEAN CORPUSCULAR HEMOGLOBIN CONC (BEAKER) (test 30.7 GM/DL 32.3-36.5 eljf=704) RED CELL DISTRIBUTION WIDTH (BEAKER) (test 16.5 % 11.6-14.4 nwao=880) PLATELET COUNT (BEAKER) (test jhyr=838) 319 K/CU MM 150-450 MEAN PLATELET VOLUME (BEAKER) (test humc=860) 10.4 fL 9.4-12.4 NUCLEATED RED BLOOD CELLS (BEAKER) (test 1 /100 WBC 0-0 tguq=978) POCT-GLUCOSE [id number] 21:37:00 Test Item Value Reference Range Comments POC-GLUCOSE METER (BEAKER) 158 mg/dL 70-110 TESTED AT [address] (test bgyo=3821) [facility] [address] BASIC METABOLIC [id number] 19:11:00 Test Item Value Reference Range Comments SODIUM (BEAKER) (test 135 meq/L 136-145 louv=162) POTASSIUM (BEAKER) (test 4.8 meq/L 3.5-5.1 pfie=103) CHLORIDE (BEAKER) (test 107 meq/L 98-107 oagt=182) CO2 (BEAKER) (test 19 meq/L 22-29 iony=468) BLOOD UREA NITROGEN 78 mg/dL 7-21 (BEAKER) (test bkmu=143) CREATININE (BEAKER) (test 2.20 mg/dL 0.57-1.25 hmww=470) GLUCOSE RANDOM (BEAKER) 182 mg/dL 70-105 (test zmtc=025) CALCIUM (BEAKER) (test 9.3 mg/dL 8.4-10.2 oriw=831) EGFR (BEAKER) (test 30 mL/min/1.73 sq m ESTIMATED GFR IS NOT xlex=7823) ACCURATE CREATININE CLEARANCE IN PREDICTING GLOMERULAR FILTRATION RATE. ESTIMATED GFR IS NOT APPLICABLE FOR DIALYSIS PATIENTS. CREATININE, RANDOM [id number] 13:56:00 Test Item Value Reference Range Comments CREATININE URINE (BEAKER) (test hrcj=397) 40.1 mg/dL Reference Range: No NormalsSODIUM, RANDOM [id number] 13:56:00 Test Item Value Reference Range Comments SODIUM URINE (BEAKER) (test zcbj=118) 70 meq/L Reference Range: No NormalsUREA NITROGEN, RANDOM [id number] 13:56:00 Test Item Value Reference Range Comments UREA NITROGEN URINE (BEAKER) (test kbya=662) 694 mg/dL Reference Range: No NormalsURINALYSIS W/ [id number] 13:55:00 Test Item Value Reference Range Comments COLOR (BEAKER) (test jmgd=634) Light Yellow CLARITY (BEAKER) (test osia=878) Clear SPECIFIC GRAVITY UA (BEAKER) (test buzd=022) 1.010 1.001-1.035 PH UA (BEAKER) (test pwlc=907) 6.5 5.0-8.0 PROTEIN UA (BEAKER) (test vewc=868) Negative Negative GLUCOSE UA (BEAKER) (test npfw=819) Negative Negative KETONES UA (BEAKER) (test ndgo=369) Negative Negative BILIRUBIN UA (BEAKER) (test tack=321) Negative Negative BLOOD UA (BEAKER) (test fthk=027) Negative Negative NITRITE UA (BEAKER) (test joly=769) Negative Negative LEUKOCYTE ESTERASE UA (BEAKER) (test znqo=681) Negative Negative UROBILINOGEN UA (BEAKER) (test kioo=371) 0.2 mg/dL 0.2-1.0 RBC UA (BEAKER) (test rrrj=712) 0 /HPF WBC UA (BEAKER) (test xxut=543) 0 /HPF SOURCE(BEAKER) (test rcaw=8841) CBC W/PLT COUNT & AUTO [id number] 07:31:00 Test Item Value Reference Range Comments WHITE BLOOD CELL COUNT (BEAKER) (test oimd=862) 11.1 K/ L 3.5-10.5 RED BLOOD CELL COUNT (BEAKER) (test iymq=928) 2.63 M/ L 4.63-6.08 HEMOGLOBIN (BEAKER) (test cbry=773) 6.8 GM/DL 13.7-17.5 HEMATOCRIT (BEAKER) (test klpd=104) 22.9 % 40.1-51.0 MEAN CORPUSCULAR VOLUME (BEAKER) (test tium=637) 87.1 fL 79.0-92.2 MEAN CORPUSCULAR HEMOGLOBIN (BEAKER) (test 25.9 pg 25.7-32.2 aija=974) MEAN CORPUSCULAR HEMOGLOBIN CONC (BEAKER) (test 29.7 GM/DL 32.3-36.5 qlfw=628) RED CELL DISTRIBUTION WIDTH (BEAKER) (test 16.6 % 11.6-14.4 fnlf=142) PLATELET COUNT (BEAKER) (test gryy=908) 302 K/CU MM 150-450 MEAN PLATELET VOLUME (BEAKER) (test qgey=328) 10.9 fL 9.4-12.4 NUCLEATED RED BLOOD CELLS (BEAKER) (test 1 /100 WBC 0-0 ehuf=403) NEUTROPHILS RELATIVE PERCENT (BEAKER) (test 69 % jnyl=345) LYMPHOCYTES RELATIVE PERCENT (BEAKER) (test 12 % wamd=794) MONOCYTES RELATIVE PERCENT (BEAKER) (test 12 % yyro=306) EOSINOPHILS RELATIVE PERCENT (BEAKER) (test 5 % sxjb=423) BASOPHILS RELATIVE PERCENT (BEAKER) (test 1 % ptne=438) NEUTROPHILS ABSOLUTE COUNT (BEAKER) (test 7.66 K/ L 1.78-5.38 qonp=244) LYMPHOCYTES ABSOLUTE COUNT (BEAKER) (test 1.32 K/ L 1.32-3.57 edxa=590) MONOCYTES ABSOLUTE COUNT (BEAKER) (test 1.32 K/ L 0.30-0.82 ifjy=108) EOSINOPHILS ABSOLUTE COUNT (BEAKER) (test 0.52 K/ L 0.04-0.54 trlw=483) BASOPHILS ABSOLUTE COUNT (BEAKER) (test 0.09 K/ L 0.01-0.08 rfal=635) IMMATURE GRANULOCYTES-RELATIVE PERCENT (BEAKER) 1 % 0-1 (test qhoo=4404) BASIC METABOLIC [id number] 07:26:00 Test Item Value Reference Range Comments SODIUM (BEAKER) (test 136 meq/L 136-145 nhsm=386) POTASSIUM (BEAKER) (test 5.2 meq/L 3.5-5.1 isgk=636) CHLORIDE (BEAKER) (test 106 meq/L 98-107 ebbt=356) CO2 (BEAKER) (test 22 meq/L 22-29 gmwo=095) BLOOD UREA NITROGEN 93 mg/dL 7-21 (BEAKER) (test niad=755) CREATININE (BEAKER) (test 2.30 mg/dL 0.57-1.25 fdty=581) GLUCOSE RANDOM (BEAKER) 113 mg/dL 70-105 (test nqwe=779) CALCIUM (BEAKER) (test 9.2 mg/dL 8.4-10.2 wlhs=568) EGFR (BEAKER) (test 28 mL/min/1.73 sq m ESTIMATED GFR IS NOT eaer=2483) ACCURATE CREATININE CLEARANCE IN PREDICTING GLOMERULAR FILTRATION RATE. ESTIMATED GFR IS NOT APPLICABLE FOR DIALYSIS PATIENTS. [id number] 07:25:00 Test Item Value Reference Range Comments MAGNESIUM (BEAKER) (test hdhc=065) 2.3 mg/dL 1.6-2.6 [id number] 07:06:00 Test Item Value Reference Range Comments PROTIME (BEAKER) (test shsk=039) 15.7 seconds 11.7-14.7 INR (BEAKER) (test aybq=797) 1.2 <=5.9 PARTIAL THROMBOPLASTIN TIME (BEAKER) (test 31.7 seconds 22.5-36.0 tidm=750) RECOMMENDED COUMADIN/WARFARIN INR THERAPY RANGESSTANDARD DOSE: 2.0 - 3.0 Includes: PROPHYLAXIS forvenous thrombosis, systemic embolization; TREATMENT for venous thrombosis and/or pulmonary embolus.HIGH RISK: Target INR is 2.5-3.5 for patients with mechanical heart valves.
[2018-11-06] MEDS: HYDROCODONE/APAP 5/325 MG TAB PO PRN ×3 (00:20→23:19)
[2018-11-06] MEDS: DOXEPIN HCL 25 MG CAP PO SCH ×2 (00:20→21:09)
[2018-11-06 06:10] LABS: Absolute Lymphocytes (CBC) 0.7 K/uL (0.7-4.9); Basophils % 0.6 % (0-1.3); Eosinophils % 0.6 % (0-4.4); Hematocrit 28.4 % (39.6-49.0); Lymphocytes % 6.6 % (15.3-44.8); MPV 7.9 fL (7.6-11.3); RBC Red Blood Cell Count 3.82 M/uL (4.33-5.43)
[2018-11-06 06:26] LABS: Albumin 3.1 g/dL (3.4-5.0); Magnesium 2.1 mg/dL (1.8-2.4); Potassium 3.5 mmol/L (3.5-5.1)
[2018-11-06 07:11] LABS: Anisocytosis 3+; Blood Morphology Comment NOTED (NOT SEEN); Hypochromasia 3+; Ovalocytes 2+; Platelet Estimate ADEQ; Urine White Blood Cell Casts OK
[2018-11-06] MEDS ORDERED: METOPROLOL TAR 50 MG TAB PO SCH (08:00)
[2018-11-06] MEDS ORDERED: FUROSEMIDE 40 MG TABLET PO SCH ×2 (08:00→10:27)
[2018-11-06] MEDS: MIDODRINE HCL 5 MG TABLET PO SCH ×3 (09:26→21:09)
[2018-11-06] MEDS: ALLOPURINOL 100 MG TAB PO SCH (09:27)
[2018-11-06] MEDS: GABAPENTIN 300 MG CAP PO SCH ×2 (09:27→20:09)
[2018-11-06] MEDS: LACTULOSE 20 GM/30 ML UCUP PO SCH ×4 (09:28→20:10)
[2018-11-06] MEDS: SERTRALINE HCL 50 MG TAB PO SCH (09:28)
--- NOTE | 2018-11-06 13:01 | FAST ---
ENCOUNTER DATE AND TIME: 11/06/2018 08:00 (CDT) NAME ANTWON MG DATE OF : 1945 DATE OF ADMISSION: 11/05/2018 22:49 (CDT) PHONE: AGE: 73 SSN# [id number] GENDER: Male ENCOUNTER PHYSICIAN: Dr. Giorgio Leon M.D. ADMISSION DIAGNOSIS: - Medically Complex Conditions 17 - Terminal Care (17.6) Acute renal Failure. EATING: Activity did not occur on this shift EATING - SCORE: 0-UNK GROOMING: Activity did not occur on this shift GROOMING - SCORE: 0-UNK BATHING: Activity did not occur on this shift BATHING - SCORE: 0-UNK DRESSING - UPPER BODY: Activity did not occur on this shift Patient is not dressing in public clothing ARTICLES SCORE Total number of steps: 0 DRESSING - UPPER BODY - SCORE: 0-UNK DRESSING - LOWER BODY: Activity did not occur on this shift Patient is not dressing in public clothing ARTICLES SCORE Total number of steps: 0 DRESSING - LOWER BODY - SCORE: 0-UNK TOILETING: Activity did not occur on this shift TOILETING - SCORE: 0-UNK BLADDER MANAGEMENT: Activity did not occur on this shift BLADDER MANAGEMENT - SCORE: 7-IND BOWEL MANAGEMENT: Activity did not occur on this shift BOWEL MANAGEMENT - SCORE: 7-IND TRANSFERS: BED, CHAIR, WHEELCHAIR: TRANSFERS: BED, CHAIR, WHEELCHAIR - STEP 1: Does the patient require assistance of a person or device, or need extra time with bed, chair, or whe elchair transfers? Yes. TRANSFERS: BED, CHAIR, WHEELCHAIR - STEP 2: Does the patient require the assistance of a helper? No. Patient only requires an assistive device fo r bed, chair, wheelchair transfers such as a sliding board, grab bar, or brace, OR s/he takes more th an reasonable time, OR there is a safety concern when s/he performs the transfers TRANSFERS: BED, CHAIR, WHEELCHAIR - SCORE: 6-GEO TRANSFERS: TOILET: TRANSFERS: TOILET - STEP 1: Does the patient require the assistance of a person or device, or need extra time with toilet transfe rs? Yes. TRANSFERS: TOILET - STEP 2: Does the patient require the assistance of a helper? No. Patient only requires an assistive device cho ch as a grab bar or special seat, OR s/he takes more than reasonable time to perform toilet transfers , OR there is a safety concern when s/he performs toilet transfers. TRANSFERS: TOILET - SCORE: 6-GEO TRANSFERS: SHOWER: Activity did not occur on this shift TRANSFERS: SHOWER - SCORE: 0-UNK TRANSFERS: TUB: Activity did not occur on this shift TRANSFERS: TUB - SCORE: 0-UNK LOCOMOTION: WALK: LOCOMOTION: WALK - STEP 1: Does the patient need help from a person or device, or need extra time to walk 150 feet? Yes. LOCOMOTION: WALK - STEP 2: How much assistance does the patient require to walk a minimum of 150 feet? Only supervision, cuing, or coaxing LOCOMOTION: WALK - SCORE: 5-SUP LOCOMOTION: WHEELCHAIR: LOCOMOTION: WHEELCHAIR - STEP 1: Does the patient need help to go 150 feet in a wheelchair? No. LOCOMOTION: WHEELCHAIR - SCORE: 6-GEO LOCOMOTION: STAIRS: LOCOMOTION: STAIRS - STEP 1: Does the patient need help to go up and down 12 to 14 stairs? Yes. LOCOMOTION: STAIRS - STEP 2: How much assistance does the patient need from the helper to go a minimum of 12 to 14 stairs? The pat ient goes less than 12 stairs, but at least 4 stairs LOCOMOTION: STAIRS - SCORE: 2-MAX COMPREHENSION: COMPREHENSION - SCORE: 0-UNK EXPRESSION EXPRESSION - SCORE: 0-UNK SOCIAL INTERACTION: SOCIAL INTERACTION - SCORE: 0-UNK PROBLEM SOLVING: PROBLEM SOLVING - SCORE: 0-UNK MEMORY: MEMORY - SCORE: 0-UNK SIGNATURE PANEL: The following modified sections: Transfers: Bed, Chair, Wheelchair - Score, Transfers: Toilet - Score , Locomotion: Walk - Score, Locomotion: Wheelchair - Score, Locomotion: Stairs - Score were [tamanna silva] signed by Lisa Go on Sat Nov 06 2018 13:01:12 GMT-0500 (Central Daylight Time)
--- NOTE | 2018-11-06 14:01 | FAST ---
SHIFT START DATE/TIME: 11/06/2018 07:00 (CDT) SHIFT END DATE/TIME: 11/06/2018 19:00 (CDT) NAME ANTWON MG DATE OF : 1945 DATE OF ADMISSION: 11/05/2018 22:49 (CDT) PHONE: AGE: 73 N# [id number] GENDER: Male ENCOUNTER PHYSICIAN: Dr. Giorgio Leon M.D. ADMISSION DIAGNOSIS: - Medically Complex Conditions 17 - Terminal Care (17.6) Acute renal Failure. EATING: EATING - STEP 1: Does the patient require the assistance of a person or device, or need extra time when eating? Yes. EATING - STEP 2: Does the patient require the assistance of a helper? Yes. EATING - STEP 3: Does the patient perform half or more of the eating tasks? Yes. EATING - STEP 4: Does the patient need only supervision, cuing, coaxing OR help to apply an orthosis OR help to cut fo od, open containers, pour liquids, or butter bread? Yes. EATING - SCORE: 5-SUP GROOMING: Activity did not occur on this shift GROOMING - SCORE: 0-UNK BATHING: Activity did not occur on this shift BATHING - SCORE: 0-UNK DRESSING - UPPER BODY: Activity did not occur on this shift ARTICLES SCORE Total number of steps: 0 DRESSING - UPPER BODY - SCORE: 0-UNK DRESSING - UPPER BODY - COMMENTS: Waiting for therapy and shower time DRESSING - LOWER BODY: Activity did not occur on this shift ARTICLES SCORE Total number of steps: 0 DRESSING - LOWER BODY - SCORE: 0-UNK DRESSING - LOWER BODY - COMMENTS: Waiting for therapist and shower time TOILETING: TOILETING - STEP 1: Does the patient require the assistance of a person or device, or need extra time with toileting? Yes . TOILETING - STEP 2: Does the patient require the assistance of a helper? Yes. TOILETING - STEP 3: How much assistance does the patient require from the helper? Only supervision TOILETING - SCORE: 5-SUP BLADDER MANAGEMENT: Patient is on renal dialysis or peritoneal dialysis and no voiding activity BLADDER MANAGEMENT - SCORE: 7-IND BLADDER MANAGEMENT - FREQUENCY OF ACCIDENTS: BLADDER MANAGEMENT(FA) - STEP 1: How many accidents has the patient had during the current shift? 0 BOWEL MANAGEMENT: Activity did not occur on this shift BOWEL MANAGEMENT - SCORE: 7-IND BOWEL MANAGEMENT - FREQUENCY OF ACCIDENTS: BOWEL MANAGEMENT(FA) - STEP 1: How many accidents has the patient had during the current shift? 0 TRANSFERS: BED, CHAIR, WHEELCHAIR: TRANSFERS: BED, CHAIR, WHEELCHAIR - STEP 1: Does the patient require assistance of a person or device, or need extra time with bed, chair, or whe elchair transfers? Yes. TRANSFERS: BED, CHAIR, WHEELCHAIR - STEP 2: Does the patient require the assistance of a helper? Yes. TRANSFERS: BED, CHAIR, WHEELCHAIR - STEP 3: How much assistance does the patient require from the helper? Steadying/guiding assistance TRANSFERS: BED, CHAIR, WHEELCHAIR - SCORE: 4-MIN TRANSFERS: TOILET: TRANSFERS: TOILET - STEP 1: Does the patient require the assistance of a person or device, or need extra time with toilet transfe rs? Yes. TRANSFERS: TOILET - STEP 2: Does the patient require the assistance of a helper? Yes. TRANSFERS: TOILET - STEP 3: How much assistance does the patient require from the helper? Only supervision, cuing, coaxing, OR he lp to set out transfer equipment or to lock brakes and/or lift foot rests TRANSFERS: TOILET - SCORE: 5-SUP TRANSFERS: SHOWER: Activity did not occur on this shift TRANSFERS: SHOWER - SCORE: 0-UNK TRANSFERS: TUB: Activity did not occur on this shift TRANSFERS: TUB - SCORE: 0-UNK LOCOMOTION: WALK: Activity did not occur on this shift LOCOMOTION: WALK - SCORE: 0-UNK LOCOMOTION: WHEELCHAIR: Activity did not occur on this shift LOCOMOTION: WHEELCHAIR - SCORE: 0-UNK COMPREHENSION: COMPREHENSION: TYPE: Both COMPREHENSION - STEP 1: Does the patient require help from a person or device, or need extra time to understand complex and a bstract ideas (such as current events, finances, discharge planning, medical issues, relationships, e tc)? No. COMPREHENSION - STEP 2: Does the patient need extra time, require an assistive device (such as glasses for visual comprehensi on or a hearing aid for auditory comprehension) or does s/he have mild difficulty understanding compl ex and abstract information? Yes. COMPREHENSION - SCORE: 6-GEO EXPRESSION EXPRESSION: TYPE: Both EXPRESSION - STEP 1: Does the patient require help from a person or device, or need extra time expressing complex and abst ract ideas (such as current events, finances, discharge planning, medical issues, relationships, etc) ? No. EXPRESSION - STEP 2: Does the patient need extra time, require an assistive device (such as augmentive communication syste m or a communication board), OR does s/he have mild difficulty expressing complex and abstract ideas (including mild dysarthria or mild word-find problems)? Yes. EXPRESSION - SCORE: 6-GEO SOCIAL INTERACTION: SOCIAL INTERACTION - STEP 1: Does the patient require a helper to interact with others in social and therapeutic situations? No. SOCIAL INTERACTION - STEP 2: Does the patient need extra time in social situations, OR does s/he interact with staff, other patien ts, and family members ONLY in structured environments, OR does s/he require medication for social in teraction? Yes, patient needs extra time SOCIAL INTERACTION - SCORE: 6-GEO PROBLEM SOLVING: PROBLEM SOLVING - STEP 1: Does the patient need help from a person or device, or need extra time to solve complex problems such as managing a checking account or confronting interpersonal problems? No. PROBLEM SOLVING - STEP 2: Does the patient require extra time to make decisions or solve problems, OR does s/he have slight dif ficulty reading, initiating, or self-correcting in unfamiliar situations? Yes, patient needs extra ti me. PROBLEM SOLVING - SCORE: 6-GEO MEMORY: MEMORY - STEP 1: Does the patient need help from a person or device, or need extra time to remember frequently encount ered people, daily routines, and executing requests? No. MEMORY - STEP 2: Does the patient have slight difficulty recognizing frequently encountered people, daily routines, or executing requests without the need for repetition or using self-initiated or environmental cues to remember? Yes. MEMORY - SCORE: 6-GEO SIGNATURE PANEL: The following modified sections: Eating - Score, Grooming - Score, Bathing - Score, Dressing - Upper Body - Score, Dressing - Upper Body - Comments:, Dressing - Lower Body - Score, Dressing - Lower Body - Comments:, Toileting - Score, Bladder Management - Score, Bowel Management - Score, Transfers: Bed , Chair, Wheelchair - Score, Transfers: Toilet - Score, Transfers: Shower - Score, Transfers: Tub - S core, Locomotion: Walk - Score, Locomotion: Wheelchair - Score, Comprehension - Score, Expression - S core, Social Interaction - Score, Problem Solving - Score, Memory - Score were [electronically] palak d by Aleah Sevilla C.N.A. on ThuNov 06 2018 14:00:24 GMT-0500 (Central Daylight Time)
[2018-11-06] MEDS ORDERED: D50W 25 GM/50 ML SYRINGE IV PRN (18:42)
[2018-11-06] MEDS ORDERED: GLUCAGON 1 MG/VIAL IM PRN (18:42)
--- NOTE | 2018-11-06 19:26 | R.HP ---
FACILITY: [facility] ENCOUNTER DATE AND TIME: 11/06/2018 19:19 (CDT) MR#: [id number] NAME TAM MG ADDRESS: [address] [place] [address] [address] CITY: [place] [address] [id number] PHONE: DATE OF : 1945 AGE: 73 SSN# [id number] GENDER: Male DEXTERITY Right-handed MARITAL STATUS RACE White PRE-HOSPITAL LIVING SETTING 01 - Home (private home/apt. board/care, assisted living, alf, transitional living) PRE-HOSPITAL LIVING WITH Family/Relatives ENCOUNTER PHYSICIAN: Dr. Giorgio Leon M.D. REFERRING DOCTOR: dottie Hunt DATE OF ADMISSION: 11/05/2018 22:49 (CDT) REFERRING FACILITY [facility] TYPE AND DETAILS: Type of home: single family house # of levels in the residence: 1 # of steps to enter the residence: 0 # of steps within the residence: 0 ADMISSION DIAGNOSIS: Acute renal Failure ONSET DATE: 10/18/2018 PRIMARY DIAGNOSIS-RELATED SURGERIES: Permcath Placement SECONDARY/COMORBID DIAGNOSES (TIERED): - Non-Tiered Allergic rhinitis due to pollen (J30.1) Anemia Gout - N/A Liver Disease Kidney Disease CAD Gastric Ulcer Atrial Fibrillation Hypertension HISTORY OF PRESENT ILLNESS (HPI): Pt. is a 73 yo Right-handed white male. On 10/18/2018 he was admitted to [facility] with diagnosis Acute renal Failure. His impairment category is Medically Complex Conditions 17 - Terminal Care (17.6). Pre-morbidly, Pt. was independent/mod-I in Self-Care, Sphincter Control, Transfers Control, Locomotio n, Communication, and Social Cognition; and he had good Sphincter Control. Currently, he has deficits of Transfers Control, Locomotion, Endurance, Balance, Safety Awareness, an d Self-Care. Pt. is now referred to [facility] for acute in-patient rehabilitation in order to maximize patient's functional independence in activities of daily living, strength, ROM, and mobi lity. Patient has realistic goal of being discharged at assistance level 6-Joel to reside at Home with Fam dale/Relatives. Tam Mg is a 73 year old male that lives in a single cassie house. Patient is independent with ADLs and self care. On 10/18/2018, patient had abdominal Center and treated. He is now medically stable but in need of 24-hour nursing, doctor supervision and oversite while receiving active The patient is reasonably expected to participate in 3hours of therapy a day/15 hours per week and receive care with an intensive interdisciplinary approach. MEDICATION ALLERGIES: No Known Drug Allergies (NKDA) ENVIRONMENTAL ALLERGIES: None Known - Substance Allergies None Known - Other Allergies None Known PAST MEDICAL HISTORY: Allergic rhinitis due to pollen (J30.1) Atrial Fibrillation CAD Gastric Ulcer Hypertension Kidney Disease Liver Disease PAST SURGICAL HISTORY: Coronary Angioplasty with stent FAMILY HISTORY: Family history is not contributory. SOCIAL HISTORY: - Home Living Family/Relatives REVIEW OF SYSTEMS: - Gen No Chills Fatigue No Fever - Eyes No Double Vision No itchiness - ENMT No Difficulty Swallowing - CVS No Chest Discomfort No Chest Pain Fatigue No Weight Gain - Resp No Cough No Shortness of Breath - GI Continent No Abdominal Pain No Constipation No Diarrhea - Continent No Kidney Pain No Painful Urination No Urinary Urgency - MSK No Joint Pain Muscle Cramps Stiffness - Skin No Itching No Rash No Suspicious Lesions - Neuro Coordination Difficulty No Difficulty with Concentration No Memory Loss No Seizures Weakness - Psych No Anxiety No Depression No HIV Exposure No Persistent Infections No Seasonal Allergies - Endo No Cold/Heat Intolerance No Excessive Hunger No Excessive Thirst No Excessive Urination PHYSICAL EXAM - Gen Alert and awake Lying in bed No apparent distress Oriented to: person, time, and place - Skin Ulceration on right leg is dressed with good hemostasis. Abdominal wound have good hemostasis. Normacephalic - Eyes No abnormalities - ENMT No abnormalities - Neck No abnormalities - CVS RRR - Chest No abnormalities - Abd Mildly distended - GI + bowel sound Deferred - Does not produce much urine, on hemodialysis - Ext Moderate edema in both lower extremities. - MSK 4+/5 weakness in both lower extremities. - Neuro No focal deficits - Psych No abnormalities VITAL SIGNS Temperature: 97.3 F SBP/DBP: 133/73 Pulse: 74 Resp: 18 NURSING: - Shower allowing shower ACTIVITIES OOB only with supervision FUNCTIONAL STATUS: - Self-Care A. Eating Ind Joel B. Grooming Ind Joel C. Bathing Ind sup D. Dressing - Upper Ind sup E. Dressing - Lower Ind sup F. Toileting Ind sup - Sphincter Control G: Bladder control Ind Ind H: Bowel control Ind Ind - Transfers Control I. Bed/Chair/Wheelchair Ind sup J. Toilet Ind sup K. Tub/Shower Ind ADNO - Locomotion L. Walk/Wheelchair (C) Ind CGA L. Walk/Wheelchair (W) Ind CGA M. Stairs Ind ADNO - Communication N. Comprehension (B) Ind Ind O. Expression (B) Ind Ind - Social Cognition P. Social Interaction Ind Ind Q. Problem Solving Ind Ind R. Memory Ind Ind - Endurance Fair - Balance Fair - Safety Awareness Fair CURRENT FUNC. DEFICITS: Transfers Control, Locomotion, Endurance, Balance, Safety Awareness, and Self-Care MEDICATIONS: - Other See attached MAR (Medication Administration Record) Tam Mg.pdf ASSESSMENT: Pt. is a 73 yo Right-handed white male.On 10/18/2018 he was admitted to [facility] with diagnosis Acute renal Failure.His impairment category is Medically Complex Conditions 17 - Ter liliya Care (17.6).Pre-morbidly, Pt. was independent/mod-I in Self-Care, Sphincter Control, Transfers Control, Locomotion, Communication, and Social Cognition; and he had good Sphincter Control.Currently , he has deficits of Transfers Control, Locomotion, Endurance, Balance, Safety Awareness, and Self-Ca re.Pt. is now referred to [facility] for acute in-patient rehabilitation in or [place] to maximize patient's functional independence in activities of daily living, strength, ROM, and m obility.- Rehab Goal Patient has realistic goal of being discharged at assistance level 6-Joel to reside at Home with Fam dale/Relatives. Tam Mg is a 73 year old male that lives in a single cassie house. Patient is independent with ADLs and self care. On 10/18/2018, patient had abdominal Center and treated. He is now medically stable but in need of 24-hour nursing, doctor supervision and oversite while receiving active The patient is reasonably expected to participate in 3hours of therapy a day/15 hours per week and receive care with an intensive interdisciplinary approach.REHAB PLAN: - Physical Therapy Gait dysfunction - to improve, our physical therapists will perform initial evaluation of pt's status upon admission and devise an individualized program for Gait Training, and Wheel Chair mobility Inability to transfer - to improve, our physical therapists will perform initial evaluation of pt's s tatus upon admission and devise an individualized program for Bed mobility Need for home safety evaluation - to improve, our physical therapists will perform initial evaluation of pt's status upon admission and devise an individualized program for Home Evaluation Need in caregiver upon discharge - to improve, our physical therapists will perform initial evaluatio n of pt's status upon admission and devise an individualized program for Caregiver Training New precaution - to improve, our physical therapists will perform initial evaluation of pt's status u kin admission and devise an individualized program for Patient precaution education Edema - to improve, our physical therapists will perform initial evaluation of pt's status upon admi ssion and devise an individualized program for Elevation Training, and Lymphedema Therapy Having wound - to improve, our physical therapists will perform initial evaluation of pt's status up on admission and devise an individualized program for Wound Care Poor balance - to improve, our physical therapists will perform initial evaluation of pt's status upo n admission and devise an individualized program for Balance Training Poor endurance - to improve, our physical therapists will perform initial evaluation of pt's status u kin admission and devise an individualized program for Endurance Training Weakness - to improve, our physical therapists will perform initial evaluation of pt's status upon ad mission and devise an individualized program for Aquatic Therapy, Neuromuscular Reeducation, and Stre ngthening Achieving independence - to improve, our physical therapists will perform initial evaluation of pt's status upon admission and devise an individualized program for Community Reintegration Activities - Occupational Therapy ADL deficits - to improve, our occupation therapists will perform initial evaluation of pt's status u kin admission and devise an individualized program for Bathing, Bed mobility, Community Reintegration , Cooking, Dressing, Eating, Fine Motor Skills, Grooming, Homemaking, Kitchen Mobility, Laundry, Samanta ent Education, Safety Awareness, Splinting - Positioning, Transfers(Toilet, Tub, Shower), and Wheel C hair Management Need for career placement specialist - to improve, our occupation therapists will perform initial evaluation of pt's s tatus upon admission and devise an individualized program for Caregiver Training Weakness - to improve, our occupation therapists will perform initial evaluation of pt's status upon admission and devise an individualized program for Aquatic Therapy, Balance, Endurance, UE ROM, and U E strengthening MEDICAL PLAN: - Diet Type Start Regular - Diet - Liquid Texture Start Regular - Tube Feed Start N/A - Other See attached MAR (Medication Administration Record) Tam Mg.pdf - Diet - Solid Texture Regular - Shower shower DISCHARGE PLAN: - Estimated Length of Stay (days) 13. - Consensus on plan Discharge plan has been discussed with primary caregiver. Patient/Family is in agreement with the mar n. Primary caregiver is in agreement with the plan. - Patient/Family Goals Return home with assistance. - Planned Living Setting Upon Discharge Home, to live with Family/Relatives. Transitional Living. SIGNATURE PANEL: (CDT)
--- NOTE | 2018-11-06 19:27 | PAPE ---
PATIENT: [facility] MR# [id number] REFERRING DOCTOR dottie Hunt EVALUATION DATE AND TIME 11/06/2018 19:26 (CDT) NAME ANTWON MG DATE OF 1945 AGE 73 PHONE N# [id number] GENDER male EVALUATING PHYSICIAN Dr. Giorgio Leon M.D. ADMISSION DIAGNOSIS: Acute renal Failure ONSET DATE 10/18/2018 SECONDARY/COMORBID DIAGNOSES TIERED: - Non-Tiered Allergic rhinitis due to pollen (J30.1) Anemia Gout - N/A Liver Disease Kidney Disease CAD Gastric Ulcer Atrial Fibrillation Hypertension POST-ADMISSION FUNCTIONAL/MEDICAL STATUS: - Bladder Same accident frequency: Ind - No accidents in the past 7 days - Bowel Same accident frequency: Ind - No accidents in the past 7 days - Walking Same score based on distance walked: 2(5149ft) - Wheelchair Same score based on distance traveled: 0(N/A) STATUS CHANGE EVALUATION: No change in Functional or Medical Status is identified compared with Pre-Admission screening. PATIENT NEEDS CLOSE MEDICAL SUPERVISION BY A REHABILITATION PHYSICIAN FOR: Bowel and Bladder Management Coordination of Treatment Team Medical and Co-Morbidity Management DVT Management Pain Management PATIENT REQUIRES 24X7 REHAB NURSING FOR MEDICAL AND FUNCTIONAL MGT. OF THE FOLLOWING DEFICITS: ADL's Ambulation Bowel and Bladder Management Communication Disease Management Medication Management Patient/Family Education Providing Safe Environment Transfers Pain Management DVT Management PATIENT REQUIRES INTENSIVE, COORDINATED INTERDISCIPLINARY APPROACH TO REHAB: Arranging Home Equipment/Services Discharge Planning Family Intervention/Training Director Clinical Information Services/Case Management LIST OF IDENTIFIED AND POTENTIAL PROBLEMS: Alteration in leisure activities Bladder, Incontinence Blood Pressure, Hypertension/hypotension Issues Bowel, Incontinence Infection, Actual or Potential Mobility Impaired Pain, Alteration in Comfort Self Care Deficit Skin Integrity, Actual or Potential Urinary Tract Infection (UTI), Actual or Potential RISK FOR COMPLICATIONS - CAD CHF. Cardiac Arrest. TN. Pain. - Atrial Fibrillation CVA. Heart failure. Limb embolus. - Hypertension CVA. Hypotension. TN. TIA. INTERVENTIONS - CAD 02 sats. Activity management. Medications. VS. - Atrial Fibrillation Anticoagulation. Medications. VS. - Hypertension PATIENT COULD BE AT RISK FOR COMPLICATIONS FROM ADVERSE MEDICAL CONDITIONS DUE TO HIS/HER COMORBIDITI ES AND THE RIGORS OF THE INTENSIVE REHABILLITATION PROGRAM. METHODS OR INTERVENTIONS TO AVOID COMPLIC ATIONS INCLUDE: - Deep Vein Thrombosis (DVT) Prophylaxis therapy for prevention . Sequential Compression Device (SCD). TE D Hose. - Infection Clinical staff to assess and manage the signs and symptoms of infection including fever, redness, war mth, etc. - Urinary Tract Infection - Falls Patient will be evaluated for Fall Precautions and will be placed on Fall Precautions as indicated pe r protocol. - Skin Breakdown Nursing will assess skin daily using assessment tool and will place on Skin Breakdown Precautions as indicated per protocol. - Pain Clinical staff may employ non-medication methods such as massage, distraction, decrease stimulus, etc . as needed. Clinical staff will assess patient's pain level every shift per protocol to assess and e nsure pain management effectiveness. Medications will be given and the pain level re-assessed. PRELIMINARY PLAN OF CARE: - Physical Therapy Patient needs Physical Therapy for a daily minimum of 1.5 hours at least 5 out of 7 days, to improve: Mobility, Strengthening, Transfers, Stretching, ROM, Endurance, Ability to manage stairs, Gait, and Balance. - Speech Therapy Patient needs Speech Therapy for a daily minimum of 0.5 hours at least 5 out of 7 days, to improve: S wallowing, Cognition, Language Skills, and Compensatory Strategies. - Rehabilitation Nursing Patient requires 24x7 Rehabilitation Nursing for: Pain Issues, Identifying and preventing risk factor s, Monitoring and reporting current medical conditions, Assisting with ambulation and transfer, Franky ting with all ADL-s, Teaching patients about disease process and medications, Family teaching, Provid ing safe environment, Bowel and Bladder Issues, Skin Integrity, and Medication Management. Patient needs Director Clinical Information Services and/or Case Management for: Discharge Planning, Arranging Home Equipmen t or Services, and Family Interventions. - Dietary and Nutrition Services Patient needs Dietary and Nutrition Services for: Adequate Nutrition, Nutritional Supplements, and Nu tritional Education. - Occupational Therapy Patient needs Occupational Therapy for a daily minimum of 1.5 hours at least 5 out of 7 days, to impr ove Activities of Daily Living, including: Eating, Grooming, Bathing, Dressing, Toileting, Toilet Tra nsfers, Community Reintegration, Higher functional activities, Adaptive Equipment, Splinting, Househo ld Tasks, and Other activities as determined. POTENTIAL FUNCTIONAL GOALS FOR PATIENT TO ACHIEVE BY DISCHARGE: - Safety Precaution Patient will remain free from falls or injury at time of discharge. - Bed Mobility Patient will perform bed mobility at 4-Sima level of assistance. - Transfers Patient will complete transfers from bed to chair at 4-Sima level of assistance. - Mobility Patient will ambulate 150 ft with 4-Sima level of assistance with RW. PATIENT REHAB POTENTIAL Expected level of measurable improvement will be of a practical value to patient's functional capacit y or adaptations to impairments Has a viable Discharge Plan Medically appropriate; condition is sufficiently stable to participate in intensive rehab program Patient is able and expected to receive 3 hours of individualized therapy daily on at least 5 of ever y 7 days Patient's prognosis for significant practical improvement within a reasonable period of time appears Good DISCHARGE PLAN: - Estimated Length of Stay (days) 13. - Consensus on plan Discharge plan has been discussed with primary caregiver. Patient/Family is in agreement with the mar n. Primary caregiver is in agreement with the plan. - Patient/Family Goals Return home with assistance. - Planned Living Setting Upon Discharge Home, to live with Family/Relatives. Transitional Living. CONCLUSION ON REHABILITATION NECESSITY: I have evaluated patient's pre-admission functional status and, comparing it to the patient's post-ad mission functional status now, I conclude that the pre-admission assessment was accurate. Patient's c ondition on admission supports the medical necessity of admission to IRF. It is safe to proceed with patient's therapy program. SIGNATURE PANEL: (CDT)
[2018-11-06] MEDS: METOPROLOL TAR 50 MG TAB PO SCH (20:09)
[2018-11-06] MEDS: PROMOD 30 ML DOSE PO SCH (20:10)
[2018-11-06] MEDS: APIXABAN 2.5 MG TABLET PO SCH (20:10)
[2018-11-06] MEDS: INSULIN -REGULAR HUMAN 50 UNIT/0.5 ML ML SQ SCH (20:11)
--- NOTE | 2018-11-06 22:41 | P.HP ---
Certification for Inpatient Patient admitted to: Inpatient With expected LOS: >2 Midnights Practitioner: I am a practitioner with admitting privileges, knowledge of patient current condition, hospital course, and medical plan of care. Services: Services provided to patient in accordance with Admission requirements found in Title 42 Section 412.3 of the Code of Federal Regulations Patient History Date of Service: 11/06/18 Reason for admission: GENERAL WEAKNESS History of Present Illness: MR. GM IS A HEAVY ALCOHOL DRINKER WHO HAS CIRRHOSIS OF LIVER AND CHRONIC RENAL INSUFFICIENCY WITH BASELINE CREATININE OF ABOUT 2.7. HE ENJOYS ALCOHOL AND KNOWS THE CONSEQUENCES. HE WENT TO [facility] [place] AND HAD SOME PROBLEMS HE CAN'T UNDERSTAND AND REMEMBER. HE WAS TAKEN TO LOCAL DOCTOR AND SENT TO [facility] [place]. HE STAYED THERE ABOUT 16 DAYS AND THEN SENT TO [facility] FOR REHAB. I ASKED IF HE IS WALKING AND HE SAYS HE IS ALREADY WALKING. I WILL GET DETAILS OF [place] STAY BY DR QUINTEROS. I GATHER HE HAD WORKUP DONE FOR WEAKNESS, CIRRHOSIS, ANEMIA, AND RENAL FAILURE. Allergies No Known Allergies Allergy (Verified 11/06/18 11:17) Home Medications: Allopurinol 1 tab PO DAILY 07/21/18 Folic Acid 1 tab PO DAILY 07/21/18 Metoprolol Tartrate 1 tab PO BID 07/21/18 Torsemide [Demadex*] 1 tab PO DAILY 07/21/18 Trazodone [Desyrel*] 1 tab PO DAILY PRN 07/21/18 Clobetasol Propionate/Emoll [Clobetasol Emollient 0.05% Crm] 15 gm TP DAILY 01/17 Furosemide 80 mg PO DAILY 11/06/18 Isosorbide Mononitrate [Isosorbide Mononitrate ER] 30 mg PO DAILY 11/06/18 Ketoconazole 120 ml TP EVERY 3RD DAY 11/06/18 Lactulose [Cephulac] 20 gm PO TID 11/06/18 Levocetirizine Dihydrochloride [Allergy Relief] 5 mg PO DAILY 11/06/18 Midodrine HCl 10 mg PO TID 11/06/18 Simvastatin 20 mg PO DAILY 11/06/18 - Past Medical/Surgical History Has patient received pneumonia vaccine in the past: Yes Diabetic: No -: HTN -: HISTORY OF NV -: HISTORY OF CAD WITH STENTS -: HEART STENTS -: R. foot sx - screws in big toe - Social History Smoking Status: Never smoker Alcohol use: Yes CD- Drugs: No Caffeine use: Yes Place of Residence: Home Review of Systems 10-point ROS is otherwise unremarkable General: Weakness, Malaise Physical Examination - Vital Signs Temperature: 97.6 F Blood Pressure: 128/61 Pulse: 80 Respirations: 18 Pulse Ox (%): 97 - Physical Exam General: Alert, In no apparent distress, Other (ERYTHEMATOUS FACE . CHRONIC) HEENT: Atraumatic, PERRLA, Mucous membr. moist/pink, EOMI, Sclerae nonicteric Neck: Supple, 2+ carotid pulse no bruit, No LAD, Without JVD or thyroid abnormality Respiratory: Clear to auscultation bilaterally, Normal air movement Cardiovascular: Regular rate/rhythm, Normal S1 S2, Edema Gastrointestinal: Normal bowel sounds, No tenderness Musculoskeletal: No tenderness Integumentary: No rashes Neurological: Normal gait, Normal speech, Normal strength at 5/5 x4 extr, Normal tone, Normal affect Lymphatics: No axilla or inguinal lymphadenopathy - Studies Laboratory Data (last 24 hrs) 11/06/18 05:59: Sodium 137, Potassium 3.5, BUN 30 H, Creatinine 2.67 H, Glucose 222 H, Magnesium 2.1 11/06/18 05:59: WBC 9.9, Hgb 8.8 L, Hct 28.4 L, Plt Count 340 Assessment and Plan - Problems (Diagnosis) (1) General weakness Current Visit: Yes Status: Acute Plan: START OT AND PT. I SUSPECT REHAB [facility] HE MAY NOT STAY HERE LONGER. (2) Cirrhosis, alcoholic Current Visit: Yes Status: Chronic Plan: HE HAS MILD ASCITES. HE FEELS BLOATED BUT THERE IS NOT ENOUGH FLUID TO REMOVE. HE HAS NOT QUIT ALCOHOL. HE KNOWS COMPLICATIONS OF CIRRHOSIS. Qualifiers: Ascites presence: with ascites Qualified Code(s): K70.31 - Alcoholic cirrhosis of liver with ascites (3) Anemia Current Visit: Yes Status: Acute Plan: LAST HG AT OFFICE WAS 11.3 GM. NOW IT IS 8.8 GM. HE MAY HAVE CHRONIC LOW GRADE BLEEDING FROM GI TRACT. HE MAY HAVE ANEMIA OF CHRONIC DISEASE. (4) Hepatorenal failure Current Visit: Yes Status: Chronic Plan: STABLE WILL CONSULT DR. JEFF. NO FLUIDS AT PRESENT. - Advance Directives Does patient have a Living Will: Yes Does patient have a Durable POA for Healthcare: Yes
[2018-11-06 23:44] LABS: RBC Red Blood Cell Count 4.04 M/uL (4.33-5.43)
--- NOTE | 2018-11-07 00:46 | FAST ---
SHIFT START DATE/TIME: 11/06/2018 19:00 (CDT) SHIFT END DATE/TIME: 11/07/2018 07:00 (CDT) NAME ANTWON MG DATE OF : 1945 DATE OF ADMISSION: 11/05/2018 22:49 (CDT) PHONE: AGE: 73 SSN# [id number] GENDER: Male ENCOUNTER PHYSICIAN: Dr. Giorgio Leon M.D. ADMISSION DIAGNOSIS: - Medically Complex Conditions 17 - Terminal Care (17.6) Acute renal Failure. EATING: Activity did not occur on this shift EATING - SCORE: 0-UNK GROOMING: Activity did not occur on this shift GROOMING - SCORE: 0-UNK BATHING: Activity did not occur on this shift BATHING - SCORE: 0-UNK DRESSING - UPPER BODY: Patient is not dressing in public clothing ARTICLES SCORE Total number of steps: 0 DRESSING - UPPER BODY - SCORE: 0-UNK DRESSING - LOWER BODY: Patient is not dressing in public clothing ARTICLES SCORE Total number of steps: 0 DRESSING - LOWER BODY - SCORE: 0-UNK TOILETING: TOILETING - STEP 1: Does the patient require the assistance of a person or device, or need extra time with toileting? Yes . TOILETING - STEP 2: Does the patient require the assistance of a helper? Yes. TOILETING - STEP 3: How much assistance does the patient require from the helper? Hands-on assistance from the helper TOILETING - STEP 4: Of the 3 tasks: 1) Adjusting clothing prior to use, 2) Cleansing of perineal area, 3) Adjusting clot nicolas after use; How many tasks does the patient perform WITHOUT assistance of the helper? Two tasks TOILETING - SCORE: 3-MOD BLADDER MANAGEMENT: BLADDER MANAGEMENT - STEP 1: Does the patient control the bladder completely and intentionally without equipment or devices or med ications, and is always continent? No. BLADDER MANAGEMENT - STEP 2: Does the patient require the assistance of a helper? Yes. BLADDER MANAGEMENT - STEP 3: How much assistance does the patient require from the helper? Only supervision, stand-by, cuing, or c oaxing BLADDER MANAGEMENT - SCORE: 5-SUP BOWEL MANAGEMENT: Activity did not occur on this shift BOWEL MANAGEMENT - SCORE: 7-IND TRANSFERS: BED, CHAIR, WHEELCHAIR: TRANSFERS: BED, CHAIR, WHEELCHAIR - STEP 1: Does the patient require assistance of a person or device, or need extra time with bed, chair, or whe elchair transfers? Yes. TRANSFERS: BED, CHAIR, WHEELCHAIR - STEP 2: Does the patient require the assistance of a helper? Yes. TRANSFERS: BED, CHAIR, WHEELCHAIR - STEP 3: How much assistance does the patient require from the helper? Lifting of the legs TRANSFERS: BED, CHAIR, WHEELCHAIR - STEP 4: How many legs does the patient require the helper to lift? both legs TRANSFERS: BED, CHAIR, WHEELCHAIR - SCORE: 3-MOD TRANSFERS: TOILET: TRANSFERS: TOILET - STEP 1: Does the patient require the assistance of a person or device, or need extra time with toilet transfe rs? Yes. TRANSFERS: TOILET - STEP 2: Does the patient require the assistance of a helper? Yes. TRANSFERS: TOILET - STEP 3: How much assistance does the patient require from the helper? Only supervision, cuing, coaxing, OR he lp to set out transfer equipment or to lock brakes and/or lift foot rests TRANSFERS: TOILET - SCORE: 5-SUP TRANSFERS: SHOWER: Activity did not occur on this shift TRANSFERS: SHOWER - SCORE: 0-UNK TRANSFERS: TUB: Activity did not occur on this shift TRANSFERS: TUB - SCORE: 0-UNK LOCOMOTION: WALK: Activity did not occur on this shift LOCOMOTION: WALK - SCORE: 0-UNK LOCOMOTION: WHEELCHAIR: Activity did not occur on this shift LOCOMOTION: WHEELCHAIR - SCORE: 0-UNK COMPREHENSION: COMPREHENSION: TYPE: Both COMPREHENSION - STEP 1: Does the patient require help from a person or device, or need extra time to understand complex and a bstract ideas (such as current events, finances, discharge planning, medical issues, relationships, e tc)? No. COMPREHENSION - STEP 2: Does the patient need extra time, require an assistive device (such as glasses for visual comprehensi on or a hearing aid for auditory comprehension) or does s/he have mild difficulty understanding compl ex and abstract information? Yes. COMPREHENSION - SCORE: 6-GEO EXPRESSION EXPRESSION: TYPE: Both EXPRESSION - STEP 1: Does the patient require help from a person or device, or need extra time expressing complex and abst ract ideas (such as current events, finances, discharge planning, medical issues, relationships, etc) ? No. EXPRESSION - STEP 2: Does the patient need extra time, require an assistive device (such as augmentive communication syste m or a communication board), OR does s/he have mild difficulty expressing complex and abstract ideas (including mild dysarthria or mild word-find problems)? No. EXPRESSION - SCORE: 7-IND SOCIAL INTERACTION: SOCIAL INTERACTION - STEP 1: Does the patient require a helper to interact with others in social and therapeutic situations? No. SOCIAL INTERACTION - STEP 2: Does the patient need extra time in social situations, OR does s/he interact with staff, other patien ts, and family members ONLY in structured environments, OR does s/he require medication for social in teraction? Yes, patient requires medication for social interaction SOCIAL INTERACTION - SCORE: 6-GEO PROBLEM SOLVING: PROBLEM SOLVING - STEP 1: Does the patient need help from a person or device, or need extra time to solve complex problems such as managing a checking account or confronting interpersonal problems? Yes. PROBLEM SOLVING - STEP 2: Does the patient solve basic routine problems half or more of the time? Yes. PROBLEM SOLVING - STEP 3: How often does the patient need help to solve basic routine problems? Less than 10% of the time PROBLEM SOLVING - SCORE: 5-SUP MEMORY: MEMORY - STEP 1: Does the patient need help from a person or device, or need extra time to remember frequently encount ered people, daily routines, and executing requests? No. MEMORY - STEP 2: Does the patient have slight difficulty recognizing frequently encountered people, daily routines, or executing requests without the need for repetition or using self-initiated or environmental cues to remember? Yes. MEMORY - SCORE: 6-GEO SIGNATURE PANEL: The following modified sections: Eating - Score, Grooming - Score, Dressing - Upper Body - Score, Bob ssing - Lower Body - Score, Toileting - Score, Bladder Management - Score, Bowel Management - Score, Transfers: Bed, Chair, Wheelchair - Score, Transfers: Toilet - Score, Transfers: Shower - Score, Odom sfers: Tub - Score, Locomotion: Walk - Score, Locomotion: Wheelchair - Score, Comprehension - Score, Expression - Score, Social Interaction - Score, Problem Solving - Score, Memory - Score were [electro nically] signed by Flaktia Rojo CNA on ThuNov 07 2018 00:45:32 GMT-0500 (Central Daylight Time)
--- NOTE | 2018-11-07 03:12 | CON ---
Date of Consultation: 11/06/2018 Chief Complaint: End-stage renal disease, on dialysis. History Of Present Illness: The patient was recently started on dialysis in [place]. He is transferred to [facility] for physical therapy. He has history of end-stage renal disease, gout, liver disease, coronary artery disease, hypertension, and atrial fibrillation. The patient was admitted to [facility] with diagnosis of acute renal failure on October 18. He was initiated on dialysis via tunneled dialysis catheter. The patient was referred to [facility] for in-house rehabilitation program. He received dialysis yesterday at the hospital prior to transfer to our hospital. Review of Systems: General: Denies fever, chills. Eyes: Denies vision changes. Ears, Nose, Mouth and Throat: Denies sore throat, earache. Respiratory: Denies PND or orthopnea. Cardiovascular: Denies chest pain, palpitation. GI: Denies nausea, vomiting. : Denies dysuria, hematuria. Musculoskeletal: Denies muscle aches or joint swelling. All other systems reviewed and all are negative. Past Medical History: Allergic rhinitis, atrial fibrillation, coronary artery disease, gastric ulcer, hypertension, kidney disease, chronic liver disease. Past Surgical History: Coronary angioplasty with stents. Family History: Noncontributory. Social History: Denies tobacco. He quit alcohol. Physical Examination: General: The patient is awake, alert, follows commands. Eyes: Anicteric sclerae. EOMI. Ears, Nose, Mouth and Throat: Oral mucosa moist. No pallor. Neck: Supple. No JVD. No bruits. Lungs: Few crackles at bases. Heart: S1, S2. No pericardial friction rub Abdomen: Soft, benign. No rebound , Ascites soft Extremities: Slight edema. No cellulitis. Skin : warm and dry no cellulitis Impression And Plan: Acute on chronic kidney injury. The patient is dialysis dependent. The patient has end-stage renal disease. Plan is to monitor renal function and electrolytes and schedule dialysis. Blood work is ordered to check renal panel and CBC. The patient has history of anemia. Hemoglobin level is 8.8. Continue VU. Monitor hemoglobin level. Liver cirrhosis per primary team. Renal osteodystrophy. Continue renal diet and binders. Hypoalbuminemia. Monitor ammonia level, advance p.o. protein intake. EB/MODL Voice ID: [id number] Report ID: [id number] MTDD
[2018-11-07] MEDS: INSULIN -REGULAR HUMAN 50 UNIT/0.5 ML ML SQ SCH (07:30)
[2018-11-07] MEDS: LACTULOSE 20 GM/30 ML UCUP PO SCH ×4 (07:59→21:00)
[2018-11-07] MEDS: METOPROLOL TAR 50 MG TAB PO SCH ×2 (08:00→20:36)
[2018-11-07] MEDS: GABAPENTIN 300 MG CAP PO SCH ×2 (08:01→20:37)
[2018-11-07] MEDS: MIDODRINE HCL 5 MG TABLET PO SCH ×3 (08:01→20:37)
[2018-11-07] MEDS: SERTRALINE HCL 50 MG TAB PO SCH (08:01)
[2018-11-07] MEDS: APIXABAN 2.5 MG TABLET PO SCH ×2 (08:01→20:37)
[2018-11-07] MEDS: ALLOPURINOL 100 MG TAB PO SCH (08:02)
[2018-11-07] MEDS: HYDROCODONE/APAP 5/325 MG TAB PO PRN ×3 (08:02→20:43)
[2018-11-07] MEDS: PROMOD 30 ML DOSE PO SCH ×2 (08:07→20:37)
[2018-11-07] MEDS: FE SULF/FA/VIT B COMP & C TAB PO SCH (08:08)
[2018-11-07] MEDS: FERROUS SULFATE 325 MG TAB PO SCH ×2 (08:08→20:37)
--- NOTE | 2018-11-07 11:23 | P.PN ---
Subjective Date of Service: 11/07/18 Chief Complaint: WEAK, ULCER RIGHT LEG. Subjective: Improving MR. MG HAS HAD RENAL FAILURE IN [place], IS ON HEMODIALYSIS SINCE THEN. HE ALSO HAD PARACENTASIS WITH REMOVAL OF 4 LT OF FLUID. HE HAS ULCER ON R LEG POSTERIORLY. Review of Systems 10-point ROS is otherwise unremarkable Integumentary: As per HPI Physical Examination - Vital Signs Temperature: 97.0 F Blood Pressure: 102/64 Pulse: 80 Respirations: 18 Pulse Ox (%): 98 - Physical Exam General: Alert, Mild distress, Other (LOOKS LOT OLDER THAN HIS AGE. ) HEENT: Atraumatic, PERRLA, EOMI Neck: Supple, JVD not distended Respiratory: Clear to auscultation bilaterally, Normal air movement Cardiovascular: Regular rate/rhythm, Normal S1 S2 Gastrointestinal: Normal bowel sounds, No tenderness Musculoskeletal: No tenderness Integumentary: No rashes, Venous stasis ulcer (R POSTERIOR OF LEG FIBRIN AND SLOUGH 3-3 C. EDEMA AND NO PULSE ON DP AND PT.) Neurological: Normal speech, Normal tone, Normal affect Lymphatics: No axilla or inguinal lymphadenopathy - Studies Medications List Reviewed: Yes Assessment And Plan - Current Problems (Diagnosis) (1) General weakness Current Visit: Yes Status: Acute Plan: START OT AND PT. I SUSPECT REHAB [facility] HE MAY NOT STAY HERE LONGER. (2) Cirrhosis, alcoholic Current Visit: Yes Status: Chronic Plan: HE HAS MILD ASCITES. HE FEELS BLOATED BUT THERE IS NOT ENOUGH FLUID TO REMOVE. HE HAS NOT QUIT ALCOHOL. HE KNOWS COMPLICATIONS OF CIRRHOSIS. Qualifiers: Ascites presence: with ascites Qualified Code(s): K70.31 - Alcoholic cirrhosis of liver with ascites (3) Anemia Current Visit: Yes Status: Acute Plan: LAST HG AT OFFICE WAS 11.3 GM. NOW IT IS 8.8 GM. HE MAY HAVE CHRONIC LOW GRADE BLEEDING FROM GI TRACT. HE MAY HAVE ANEMIA OF CHRONIC DISEASE. NORMAL FERRITIN. ANEMIA OF CHRONIC DISEASE PER LAB. (4) Hepatorenal failure Current Visit: Yes Status: Chronic Plan: STABLE WILL CONSULT DR. JEFF. NO FLUIDS AT PRESENT. HE IS ON HD SINCE [facility] ADMISSION. (5) Open wound of right lower extremity with complication Current Visit: No Status: Acute Plan: POSERIOR LEG. LACK OF PULSE SANTYL TOPICALLY. VENOUS AND ARTERIAL DOPPLER.
[2018-11-07] MEDS: COLLAGENASE 30 GM OINTMENT TOP SCH (12:25)
[2018-11-07] MEDS: FUROSEMIDE 40 MG TABLET PO SCH (16:49)
--- NOTE | 2018-11-07 19:29 | RAD REPORT ---
EXAM DESCRIPTION: US - Extrem Venous W Compress [place] - 11/07/2018 7:23 pm CLINICAL HISTORY: Leg pain and swelling COMPARISON: None. TECHNIQUE: Real-time sonographic evaluation of the bilateral lower extremity common femoral, superfi cial femoral, popliteal and posterior tibial veins was performed. FINDINGS: Normal compressibility, flow augmentation, phasic flow and spontaneous flow are identified in the left and right lower extremity common femoral, superficial femoral, popliteal and posterior t ibial veins. No intraluminal filling defects seen. IMPRESSION: No DVT in either lower extremity.
--- NOTE | 2018-11-07 19:38 | RAD REPORT ---
EXAM DESCRIPTION: US - Lower Extremity Arterial Bilat - 11/07/2018 7:23 pm CLINICAL HISTORY: Bilateral leg pain COMPARISON: None. TECHNIQUE: Velocity values and waveforms were obtained along the length of each lower extremity. Vis ual inspection of the lower extremity arterial tree performed. FINDINGS: No occlusion or flow restricting lesions seen along pain bilateral lower extremity arteria l tree. There is mild plaquing changes seen without significant luminal narrowing. Right lower extremity shows triphasic waveform pattern in the common femoral, femoral and popliteal a rteries. Biphasic waveform is seen in the posterior tibial artery with a dorsalis pedis artery monoph asic waveform pattern. Left lower extremity shows triphasic waveform pattern in the common femoral, femoral and popliteal ar teries. Posterior tibial and dorsalis pedis arteries are both monophasic. IMPRESSION: Mild bilateral lower extremity peripheral arterial disease. No significant luminal narro wing. No occlusion or flow restricting lesion.
[2018-11-07] MEDS: DOXEPIN HCL 25 MG CAP PO SCH (20:37)
--- NOTE | 2018-11-08 01:43 | PN ---
Date of Progress Note: 11/07/2018 Chief Complaint: Acute on chronic kidney disease. History Of Present Illness: The patient is dialysis dependent. He was recently started on dialysis via tunneled dialysis catheter. He has multiple medical problems including history of liver disease. He was diagnosed with end-stage renal disease secondary to acute on chronic kidney disease in the s etting of hepatorenal syndrome. The patient has nonoliguric urine output, although azotemia remains elevated and there is no evidence of significant renal function recovery. The patient will have dial ysis scheduled for tomorrow. Review of Systems: Denies fever or chills. Physical Examination: Lungs: Clear to auscultation bilaterally. Heart: S1, S2. Abdomen: Soft, benign. Ascites, not tense, present. Extremities: Edema present in both legs. Laboratory Data: Hemoglobin 8.8, WBC 9.9, platelet count 340,000. Chemistry showed sodium 137, pota ssium 3.5, chloride 101, CO2 28, BUN 30, creatinine 2.67, calcium 7.8, albumin 3.1. Impression And Plan: Fluid overload, generalized edema. Continue dialysis with ultrafiltration. He patorenal syndrome, resulted in end-stage renal disease. Monitor for an evidence of renal function r ecovery. Check urine output. Fluid overload and ascites. Continue low-sodium diet and p.o. fluid restriction. The patient will continue diuretic. Monitor blood pressure. Adjust diuretic dose accordingly. WILBERT/ABI Voice ID: [id number] Report ID: [id number]
--- NOTE | 2018-11-08 02:04 | FAST ---
SHIFT START DATE/TIME: 11/07/2018 19:00 (CDT) SHIFT END DATE/TIME: 11/08/2018 07:00 (CDT) NAME ANTWON MG DATE OF : 1945 DATE OF ADMISSION: 11/05/2018 22:49 (CDT) PHONE: AGE: 73 N# [id number] GENDER: Male ENCOUNTER PHYSICIAN: Dr. Giorgio Leon M.D. ADMISSION DIAGNOSIS: - Medically Complex Conditions 17 - Terminal Care (17.6) Acute renal Failure. EATING: Activity did not occur on this shift EATING - SCORE: 0-UNK GROOMING: Oral care Wash, rinse, and dry hands GROOMING - STEP 1: Does the patient require the assistance of a person or device, or need extra time when grooming? Yes. GROOMING - STEP 2: Does the patient require the assistance of a helper? Yes. GROOMING - STEP 3: How much assistance does the patient require from the helper? Cuing, coaxing, instructions, or encour agement for completion of grooming GROOMING - SCORE: 5-SUP BATHING: Activity did not occur on this shift BATHING - SCORE: 0-UNK DRESSING - UPPER BODY: Patient is not dressing in public clothing ARTICLES SCORE Total number of steps: 0 DRESSING - UPPER BODY - SCORE: 0-UNK DRESSING - LOWER BODY: Patient is not dressing in public clothing ARTICLES SCORE Total number of steps: 0 DRESSING - LOWER BODY - SCORE: 0-UNK TOILETING: TOILETING - STEP 1: Does the patient require the assistance of a person or device, or need extra time with toileting? Yes . TOILETING - STEP 2: Does the patient require the assistance of a helper? Yes. TOILETING - STEP 3: How much assistance does the patient require from the helper? Hands-on assistance from the helper TOILETING - STEP 4: Of the 3 tasks: 1) Adjusting clothing prior to use, 2) Cleansing of perineal area, 3) Adjusting clot nicolas after use; How many tasks does the patient perform WITHOUT assistance of the helper? Two tasks TOILETING - SCORE: 3-MOD BLADDER MANAGEMENT: BLADDER MANAGEMENT - STEP 1: Does the patient control the bladder completely and intentionally without equipment or devices or med ications, and is always continent? No. BLADDER MANAGEMENT - STEP 2: Does the patient require the assistance of a helper? Yes. BLADDER MANAGEMENT - STEP 3: How much assistance does the patient require from the helper? Only set-up of equipment - such as plac ing it within reach of the patient or emptying a device - to maintain either satisfactory voiding pat tern or managing an external device, such as an absorbent pad, ileal device, or catheter BLADDER MANAGEMENT - SCORE: 5-SUP BOWEL MANAGEMENT: BOWEL MANAGEMENT - STEP 1: Does the patient control bowels completely and intentionally without equipment devices or medications AND is always continent? No. BOWEL MANAGEMENT - STEP 2: Does the patient require the assistance of a helper? No, patient requires medication for control such as stool softeners, suppositories, laxatives, enemas, or OTC medications BOWEL MANAGEMENT - SCORE: 6-GEO TRANSFERS: BED, CHAIR, WHEELCHAIR: TRANSFERS: BED, CHAIR, WHEELCHAIR - STEP 1: Does the patient require assistance of a person or device, or need extra time with bed, chair, or whe elchair transfers? Yes. TRANSFERS: BED, CHAIR, WHEELCHAIR - STEP 2: Does the patient require the assistance of a helper? Yes. TRANSFERS: BED, CHAIR, WHEELCHAIR - STEP 3: How much assistance does the patient require from the helper? Lifting of the legs TRANSFERS: BED, CHAIR, WHEELCHAIR - STEP 4: How many legs does the patient require the helper to lift? both legs TRANSFERS: BED, CHAIR, WHEELCHAIR - SCORE: 3-MOD TRANSFERS: TOILET: TRANSFERS: TOILET - STEP 1: Does the patient require the assistance of a person or device, or need extra time with toilet transfe rs? Yes. TRANSFERS: TOILET - STEP 2: Does the patient require the assistance of a helper? Yes. TRANSFERS: TOILET - STEP 3: How much assistance does the patient require from the helper? Only supervision, cuing, coaxing, OR he lp to set out transfer equipment or to lock brakes and/or lift foot rests TRANSFERS: TOILET - SCORE: 5-SUP TRANSFERS: SHOWER: Activity did not occur on this shift TRANSFERS: SHOWER - SCORE: 0-UNK TRANSFERS: TUB: Activity did not occur on this shift TRANSFERS: TUB - SCORE: 0-UNK LOCOMOTION: WALK: Activity did not occur on this shift LOCOMOTION: WALK - SCORE: 0-UNK LOCOMOTION: WHEELCHAIR: Activity did not occur on this shift LOCOMOTION: WHEELCHAIR - SCORE: 0-UNK COMPREHENSION: COMPREHENSION: TYPE: Both COMPREHENSION - STEP 1: Does the patient require help from a person or device, or need extra time to understand complex and a bstract ideas (such as current events, finances, discharge planning, medical issues, relationships, e tc)? No. COMPREHENSION - STEP 2: Does the patient need extra time, require an assistive device (such as glasses for visual comprehensi on or a hearing aid for auditory comprehension) or does s/he have mild difficulty understanding compl ex and abstract information? Yes. COMPREHENSION - SCORE: 6-GEO EXPRESSION EXPRESSION: TYPE: Both EXPRESSION - STEP 1: Does the patient require help from a person or device, or need extra time expressing complex and abst ract ideas (such as current events, finances, discharge planning, medical issues, relationships, etc) ? No. EXPRESSION - STEP 2: Does the patient need extra time, require an assistive device (such as augmentive communication syste m or a communication board), OR does s/he have mild difficulty expressing complex and abstract ideas (including mild dysarthria or mild word-find problems)? No. EXPRESSION - SCORE: 7-IND SOCIAL INTERACTION: SOCIAL INTERACTION - STEP 1: Does the patient require a helper to interact with others in social and therapeutic situations? No. SOCIAL INTERACTION - STEP 2: Does the patient need extra time in social situations, OR does s/he interact with staff, other patien ts, and family members ONLY in structured environments, OR does s/he require medication for social in teraction? Yes, patient requires medication for social interaction SOCIAL INTERACTION - SCORE: 6-GEO PROBLEM SOLVING: PROBLEM SOLVING - STEP 1: Does the patient need help from a person or device, or need extra time to solve complex problems such as managing a checking account or confronting interpersonal problems? Yes. PROBLEM SOLVING - STEP 2: Does the patient solve basic routine problems half or more of the time? Yes. PROBLEM SOLVING - STEP 3: How often does the patient need help to solve basic routine problems? 10%-24% of the time PROBLEM SOLVING - SCORE: 4-MIN MEMORY: MEMORY - STEP 1: Does the patient need help from a person or device, or need extra time to remember frequently encount ered people, daily routines, and executing requests? No. MEMORY - STEP 2: Does the patient have slight difficulty recognizing frequently encountered people, daily routines, or executing requests without the need for repetition or using self-initiated or environmental cues to remember? Yes. MEMORY - SCORE: 6-GEO SIGNATURE PANEL: The following modified sections: Eating - Score, Grooming - Score, Dressing - Upper Body - Score, Bob ssing - Lower Body - Score, Toileting - Score, Bladder Management - Score, Bowel Management - Score, Transfers: Bed, Chair, Wheelchair - Score, Transfers: Toilet - Score, Transfers: Shower - Score, Odom sfers: Tub - Score, Locomotion: Walk - Score, Locomotion: Wheelchair - Score, Comprehension - Score, Expression - Score, Social Interaction - Score, Problem Solving - Score, Memory - Score were [electro nically] signed by Flakita Rojo CNA on ThuNov 08 2018 02:03:44 GMT-0500 (Central Daylight Time)
[2018-11-08 07:21] LABS: Absolute Lymphocytes (CBC) 0.7 K/uL (0.7-4.9); Basophils % 0.6 % (0-1.3); Eosinophils % 4.6 % (0-4.4); Hematocrit 34.1 % (39.6-49.0); Lymphocytes % 4.6 % (15.3-44.8); MPV 7.7 fL (7.6-11.3); Monocytes % 8.8 % (3.3-12.3); RBC Red Blood Cell Count 4.47 M/uL (4.33-5.43)
[2018-11-08 07:37] LABS: Potassium 3.7 mmol/L (3.5-5.1)
[2018-11-08] MEDS: LACTULOSE 20 GM/30 ML UCUP PO SCH ×3 (07:50→21:00)
[2018-11-08] MEDS: GABAPENTIN 300 MG CAP PO SCH ×2 (07:51→23:49)
[2018-11-08] MEDS: SERTRALINE HCL 50 MG TAB PO SCH (07:51)
[2018-11-08] MEDS: MIDODRINE HCL 5 MG TABLET PO SCH ×3 (07:51→23:49)
[2018-11-08] MEDS: APIXABAN 2.5 MG TABLET PO SCH ×2 (07:51→23:49)
[2018-11-08] MEDS: FERROUS SULFATE 325 MG TAB PO SCH ×2 (07:51→23:49)
[2018-11-08] MEDS: ALLOPURINOL 100 MG TAB PO SCH (07:51)
[2018-11-08] MEDS: FE SULF/FA/VIT B COMP & C TAB PO SCH (07:51)
[2018-11-08] MEDS: METOPROLOL TAR 50 MG TAB PO SCH ×2 (07:51→23:48)
[2018-11-08] MEDS: COLLAGENASE 30 GM OINTMENT TOP SCH (07:52)
[2018-11-08] MEDS: PROMOD 30 ML DOSE PO SCH ×2 (07:52→23:49)
[2018-11-08] MEDS: HYDROCODONE/APAP 5/325 MG TAB PO PRN ×3 (07:55→23:50)
[2018-11-08] MEDS: FUROSEMIDE 40 MG TABLET PO SCH ×2 (07:56→17:00)
[2018-11-08 09:04] LABS: Anisocytosis 3+; Blood Morphology Comment NOTED (NOT SEEN); Platelet Estimate ADEQ; Urine White Blood Cell Casts OK
--- NOTE | 2018-11-08 16:11 | FAST ---
SHIFT START DATE/TIME: 11/08/2018 07:00 (CDT) SHIFT END DATE/TIME: 11/08/2018 19:00 (CDT) NAME ANTWON MG DATE OF : 1945 DATE OF ADMISSION: 11/05/2018 22:49 (CDT) PHONE: AGE: 73 N# [id number] GENDER: Male ENCOUNTER PHYSICIAN: Dr. Giorgio Leon M.D. ADMISSION DIAGNOSIS: - Medically Complex Conditions 17 - [facility] (17.6) Acute renal Failure. EATING: EATING - STEP 1: Does the patient require the assistance of a person or device, or need extra time when eating? No. EATING - SCORE: 7-IND GROOMING: Activity did not occur on this shift GROOMING - SCORE: 0-UNK BATHING: Activity did not occur on this shift BATHING - SCORE: 0-UNK DRESSING - UPPER BODY: Activity did not occur on this shift ARTICLES SCORE Total number of steps: 0 DRESSING - UPPER BODY - SCORE: 0-UNK DRESSING - LOWER BODY: Activity did not occur on this shift ARTICLES SCORE Total number of steps: 0 DRESSING - LOWER BODY - SCORE: 0-UNK TOILETING: TOILETING - STEP 1: Does the patient require the assistance of a person or device, or need extra time with toileting? Yes . TOILETING - STEP 2: Does the patient require the assistance of a helper? No. TOILETING - SCORE: 6-GEO BLADDER MANAGEMENT: BLADDER MANAGEMENT - STEP 1: Does the patient control the bladder completely and intentionally without equipment or devices or med ications, and is always continent? Yes. BLADDER MANAGEMENT - SCORE: 7-IND BLADDER MANAGEMENT - FREQUENCY OF ACCIDENTS: BLADDER MANAGEMENT(FA) - STEP 1: How many accidents has the patient had during the current shift? 0 BOWEL MANAGEMENT: BOWEL MANAGEMENT - STEP 1: Does the patient control bowels completely and intentionally without equipment devices or medications AND is always continent? Yes. BOWEL MANAGEMENT - SCORE: 7-IND BOWEL MANAGEMENT - FREQUENCY OF ACCIDENTS: BOWEL MANAGEMENT(FA) - STEP 1: How many accidents has the patient had during the current shift? 0 TRANSFERS: BED, CHAIR, WHEELCHAIR: TRANSFERS: BED, CHAIR, WHEELCHAIR - STEP 1: Does the patient require assistance of a person or device, or need extra time with bed, chair, or whe elchair transfers? Yes. TRANSFERS: BED, CHAIR, WHEELCHAIR - STEP 2: Does the patient require the assistance of a helper? Yes. TRANSFERS: BED, CHAIR, WHEELCHAIR - STEP 3: How much assistance does the patient require from the helper? Steadying/guiding assistance TRANSFERS: BED, CHAIR, WHEELCHAIR - SCORE: 4-MIN TRANSFERS: TOILET: TRANSFERS: TOILET - STEP 1: Does the patient require the assistance of a person or device, or need extra time with toilet transfe rs? Yes. TRANSFERS: TOILET - STEP 2: Does the patient require the assistance of a helper? Yes. TRANSFERS: TOILET - STEP 3: How much assistance does the patient require from the helper? Patient performs half or more of the tr ansferring tasks TRANSFERS: TOILET - STEP 4: Does the patient need only incidental help such as contact guard or steadying during toilet transfer? Yes. TRANSFERS: TOILET - SCORE: 4-MIN TRANSFERS: SHOWER: Activity did not occur on this shift TRANSFERS: SHOWER - SCORE: 0-UNK TRANSFERS: TUB: Activity did not occur on this shift TRANSFERS: TUB - SCORE: 0-UNK LOCOMOTION: WALK: Activity did not occur on this shift LOCOMOTION: WALK - SCORE: 0-UNK LOCOMOTION: WHEELCHAIR: Activity did not occur on this shift LOCOMOTION: WHEELCHAIR - SCORE: 0-UNK COMPREHENSION: COMPREHENSION - SCORE: 0-UNK EXPRESSION EXPRESSION - SCORE: 0-UNK SOCIAL INTERACTION: SOCIAL INTERACTION - SCORE: 0-UNK PROBLEM SOLVING: PROBLEM SOLVING - SCORE: 0-UNK MEMORY: MEMORY - SCORE: 0-UNK SIGNATURE PANEL: The following modified sections: Eating - Score, Grooming - Score, Bathing - Score, Dressing - Upper Body - Score, Dressing - Lower Body - Score, Toileting - Score, Bladder Management - Score, Bowel Man agement - Score, Transfers: Bed, Chair, Wheelchair - Score, Transfers: Toilet - Score, Transfers: Apryl wer - Score, Transfers: Tub - Score, Locomotion: Walk - Score, Locomotion: Wheelchair - Score, Compre hension - Score, Expression - Score, Social Interaction - Score, Problem Solving - Score, Memory - Sc ore were [electronically] signed by Raya Michel CNA on ThuNov 08 2018 16:10:06 T-0500 ([place] Day[place])
[2018-11-08] MEDS ORDERED: NA CHLORIDE 0.9% 1,000 ML IV PRN (18:56)
[2018-11-08] MEDS ORDERED: MANNITOL 25% 12.5 GM/50 ML VIAL IV PRN (18:56)
[2018-11-08] MEDS ORDERED: ALBUMIN HUMAN 25% 50 ML IV SCH (19:00)
--- NOTE | 2018-11-08 19:10 | R.PN ---
ENCOUNTER DATE AND TIME: 11/08/2018 19:08 (CDT) NAME TAM MG DATE OF : 1945 DATE OF ADMISSION: 11/05/2018 22:49 (CDT) Acute renal FailureCHIEF COMPLAINT: Debility, acute renal failure. SUBJECTIVE: Pt denied any depression. Pt denied any Shortness of Breath. VITAL SIGNS Temperature: 97.6 F SBP/DBP: 107/68 Pulse: 93 Resp: 16 Therapeutic exercises and ADLs done with contact guard assistance. MEDICATION ALLERGIES: No Known Drug Allergies (NKDA) ENVIRONMENTAL ALLERGIES: None Known - Substance Allergies None Known - Other Allergies None Known NURSING: - Shower allowing shower ACTIVITIES OOB only with supervision THERAPIES: - Dietary and Nutrition Adequate Nutrition. Nutritional Education. Nutritional Supplements. PHYSICAL EXAM - Gen Alert and awake Lying in bed No apparent distress Oriented to: person, time, and place - Skin Ulceration on right leg is dressed with good hemostasis. Abdominal wound have good hemostasis. Normacephalic - Eyes No abnormalities - ENMT No abnormalities - Neck No abnormalities - CVS RRR - Chest No abnormalities - Abd Mildly distended - GI + bowel sound Deferred - Does not produce much urine, on hemodialysis - Ext Moderate edema in both lower extremities. - MSK 4+/5 weakness in both lower extremities. - Neuro No focal deficits - Psych No abnormalities ASSESSMENT: Pt. is a 73 yo Right-handed white male.On 10/18/2018 he was admitted to [facility] with diagnosis Acute renal Failure.His impairment category is Medically Complex Conditions 17 - [facility] (17.6).Pre-morbidly, Pt. was independent/mod-I in Self-Care, Sphincter Control, Transfers Control, Locomotion, Communication, and Social Cognition; and he had good Sphincter Control.Currently , he has deficits of Transfers Control, Locomotion, Endurance, Balance, Safety Awareness, and Self-Ca re.Pt. is now referred to [facility] for acute in-patient rehabilitation [place] to maximize patient's functional independence in activities of daily living, strength, ROM, and m obility.- Rehab Goal Patient has realistic goal of being discharged at assistance level 6-Joel to reside at Home with Fam dale/Relatives. MDM/PLAN: - Physical Therapy Gait dysfunction - to improve, our physical therapists will perform initial evaluation of pt's statu s upon admission and devise an individualized program for Gait Training, and Wheel Chair mobility Inability to transfer - to improve, our physical therapists will perform initial evaluation of pt's status upon admission and devise an individualized program for Bed mobility Need for home safety evaluation - to improve, our physical therapists will perform initial evaluatio n of pt's status upon admission and devise an individualized program for Home Evaluation Need in caregiver upon discharge - to improve, our physical therapists will perform initial evaluati on of pt's status upon admission and devise an individualized program for Caregiver Training Edema - to improve, our physical therapists will perform initial evaluation of pt's status upon admis ni and devise an individualized program for Elevation Training, and Lymphedema Therapy New precaution - to improve, our physical therapists will perform initial evaluation of pt's status upon admission and devise an individualized program for Patient precaution education Having wound - to improve, our physical therapists will perform initial evaluation of pt's status upo n admission and devise an individualized program for Wound Care Poor balance - to improve, our physical therapists will perform initial evaluation of pt's status up on admission and devise an individualized program for Balance Training Poor endurance - to improve, our physical therapists will perform initial evaluation of pt's status upon admission and devise an individualized program for Endurance Training Weakness - to improve, our physical therapists will perform initial evaluation of pt's status upon a dmission and devise an individualized program for Aquatic Therapy, Neuromuscular Reeducation, and Str engthening Achieving independence - to improve, our physical therapists will perform initial evaluation of pt's status upon admission and devise an individualized program for Community Reintegration Activities - Occupational Therapy ADL deficits - to improve, our occupation therapists will perform initial evaluation of pt's status upon admission and devise an individualized program for Bathing, Bed mobility, Community Reintegratio n, Cooking, Dressing, Eating, Fine Motor Skills, Grooming, Homemaking, Kitchen Mobility, Laundry, Pat ient Education, Safety Awareness, Splinting - Positioning, Transfers(Toilet, Tub, Shower), and Wheel Chair Management Need for long term care pharmacist - to improve, our occupation therapists will perform initial evaluation of pt's status upon admission and devise an individualized program for Caregiver Training Weakness - to improve, our occupation therapists will perform initial evaluation of pt's status upon admission and devise an individualized program for Aquatic Therapy, Balance, Endurance, UE ROM, and UE strengthening - Other See attached MAR (Medication Administration Record) Tam Mg.pdf See attached MAR (Medication Administration Record) Tam Mg.pdf - Diet Type Continue Regular - Diet - Liquid Texture Continue Regular - Tube Feed Continue N/A - Diet - Solid Texture Continue Regular - Shower allowing shower FUNCTIONAL STATUS: UPDATED AT WEEKLY TEAM CONFERENCE - Bladder Same accident frequency: 7-Ind - No accidents in the past 7 days - Bowel Same accident frequency: 7-Ind - No accidents in the past 7 days - Walking Same score based on distance walked: 2(50-149ft) - Wheelchair Same score based on distance traveled: 0(N/A) FUNCTIONAL STATUS: - Self-Care A. Eating Joel B. Grooming Joel C. Bathing sup D. Dressing - Upper sup E. Dressing - Lower sup F. Toileting sup - Sphincter Control G: Bladder control Ind H: Bowel control Ind - Transfers Control I. Bed/Chair/Wheelchair sup J. Toilet sup K. Tub/Shower ADNO - Locomotion L. Walk/Wheelchair (C) CGA L. Walk/Wheelchair (W) CGA M. Stairs ADNO - Communication N. Comprehension (B) Ind O. Expression (B) Ind - Social Cognition P. Social Interaction Ind Q. Problem Solving Ind R. Memory Ind - Endurance Fair - Balance Fair - Safety Awareness Fair CURRENT FUNC. DEFICITS: Transfers Control, Locomotion, Endurance, Balance, Safety Awareness, and Self-Care SIGNATURE PANEL: (CDT)
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
[2018-11-08 22:19] LABS: Albumin 3.4 g/dL (3.4-5.0); Bilirubin Direct 0.5 mg/dL (0-0.2); Protein, Total 6.8 g/dL (6.4-8.2)
[2018-11-08] MEDS: DOXEPIN HCL 25 MG CAP PO SCH (23:49)
--- NOTE | 2018-11-09 01:03 | FAST ---
SHIFT START DATE/TIME: 11/08/2018 19:00 (CDT) SHIFT END DATE/TIME: 11/09/2018 07:00 (CDT) NAME ANTWON MG DATE OF : 1945 DATE OF ADMISSION: 11/05/2018 22:49 (CDT) PHONE: AGE: 73 SSN# [id number] GENDER: Male ENCOUNTER PHYSICIAN: Dr. Giorgio Leon M.D. ADMISSION DIAGNOSIS: - Medically Complex Conditions 17 - [facility] (17.6) Acute renal Failure. EATING: Activity did not occur on this shift EATING - SCORE: 0-UNK GROOMING: Activity did not occur on this shift GROOMING - SCORE: 0-UNK BATHING: Activity did not occur on this shift BATHING - SCORE: 0-UNK DRESSING - UPPER BODY: Activity did not occur on this shift ARTICLES SCORE Total number of steps: 0 DRESSING - UPPER BODY - SCORE: 0-UNK DRESSING - LOWER BODY: Activity did not occur on this shift ARTICLES SCORE Total number of steps: 0 DRESSING - LOWER BODY - SCORE: 0-UNK TOILETING: TOILETING - STEP 1: Does the patient require the assistance of a person or device, or need extra time with toileting? Yes . TOILETING - STEP 2: Does the patient require the assistance of a helper? Yes. TOILETING - STEP 3: How much assistance does the patient require from the helper? Only supervision TOILETING - SCORE: 5-SUP BLADDER MANAGEMENT: BLADDER MANAGEMENT - STEP 1: Does the patient control the bladder completely and intentionally without equipment or devices or med ications, and is always continent? Yes. BLADDER MANAGEMENT - SCORE: 7-IND BOWEL MANAGEMENT: BOWEL MANAGEMENT - STEP 1: Does the patient control bowels completely and intentionally without equipment devices or medications AND is always continent? Yes. BOWEL MANAGEMENT - SCORE: 7-IND TRANSFERS: BED, CHAIR, WHEELCHAIR: TRANSFERS: BED, CHAIR, WHEELCHAIR - STEP 1: Does the patient require assistance of a person or device, or need extra time with bed, chair, or whe elchair transfers? Yes. TRANSFERS: BED, CHAIR, WHEELCHAIR - STEP 2: Does the patient require the assistance of a helper? Yes. TRANSFERS: BED, CHAIR, WHEELCHAIR - STEP 3: How much assistance does the patient require from the helper? Steadying/guiding assistance TRANSFERS: BED, CHAIR, WHEELCHAIR - SCORE: 4-MIN TRANSFERS: TOILET: TRANSFERS: TOILET - STEP 1: Does the patient require the assistance of a person or device, or need extra time with toilet transfe rs? Yes. TRANSFERS: TOILET - STEP 2: Does the patient require the assistance of a helper? Yes. TRANSFERS: TOILET - STEP 3: How much assistance does the patient require from the helper? Only supervision, cuing, coaxing, OR he lp to set out transfer equipment or to lock brakes and/or lift foot rests TRANSFERS: TOILET - SCORE: 5-SUP TRANSFERS: SHOWER: Activity did not occur on this shift TRANSFERS: SHOWER - SCORE: 0-UNK TRANSFERS: TUB: Activity did not occur on this shift TRANSFERS: TUB - SCORE: 0-UNK LOCOMOTION: WALK: Activity did not occur on this shift LOCOMOTION: WALK - SCORE: 0-UNK LOCOMOTION: WHEELCHAIR: Activity did not occur on this shift LOCOMOTION: WHEELCHAIR - SCORE: 0-UNK COMPREHENSION: COMPREHENSION: TYPE: Both COMPREHENSION - STEP 1: Does the patient require help from a person or device, or need extra time to understand complex and a bstract ideas (such as current events, finances, discharge planning, medical issues, relationships, e tc)? No. COMPREHENSION - STEP 2: Does the patient need extra time, require an assistive device (such as glasses for visual comprehensi on or a hearing aid for auditory comprehension) or does s/he have mild difficulty understanding compl ex and abstract information? Yes. COMPREHENSION - SCORE: 6-GEO EXPRESSION EXPRESSION: TYPE: Both EXPRESSION - STEP 1: Does the patient require help from a person or device, or need extra time expressing complex and abst ract ideas (such as current events, finances, discharge planning, medical issues, relationships, etc) ? No. EXPRESSION - STEP 2: Does the patient need extra time, require an assistive device (such as augmentive communication syste m or a communication board), OR does s/he have mild difficulty expressing complex and abstract ideas (including mild dysarthria or mild word-find problems)? No. EXPRESSION - SCORE: 7-IND SOCIAL INTERACTION: SOCIAL INTERACTION - STEP 1: Does the patient require a helper to interact with others in social and therapeutic situations? No. SOCIAL INTERACTION - STEP 2: Does the patient need extra time in social situations, OR does s/he interact with staff, other patien ts, and family members ONLY in structured environments, OR does s/he require medication for social in teraction? Yes, patient requires medication for social interaction SOCIAL INTERACTION - SCORE: 6-GEO PROBLEM SOLVING: Patient requires bed/chair alarms due to attempts to get up unassisted when helper is needed. PROBLEM SOLVING - STEP 1: How often do the bed/chair alarms go off? Occasionally - the alarms go off about 25% or less PROBLEM SOLVING - SCORE: 4-MIN MEMORY: MEMORY - STEP 1: How often do the bed/chair alarms go off? Occasionally - the alarms go off about 25% of the time or l ess MEMORY - SCORE: 4-MIN SIGNATURE PANEL: The following modified sections: Eating - Score, Grooming - Score, Bathing - Score, Dressing - Upper Body - Score, Dressing - Lower Body - Score, Toileting - Score, Bladder Management - Score, Bowel Man agement - Score, Transfers: Bed, Chair, Wheelchair - Score, Transfers: Toilet - Score, Transfers: Apryl wer - Score, Transfers: Tub - Score, Locomotion: Walk - Score, Locomotion: Wheelchair - Score, Compre hension - Score, Expression - Score, Social Interaction - Score, Problem Solving - Score, Memory - Sc ore were [electronically] signed by Araceli Crawford CNA on ThuNov 09 2018 01:01:48 T-0500 ([place] ylight Time)
--- NOTE | 2018-11-09 03:35 | PN ---
Date of Progress Note: 11/08/2018 Chief Complaint: End-stage renal disease, liver cirrhosis. History Of Present Illness: The patient developed accelerated chronic kidney disease secondary to he patorenal syndrome, acute on chronic kidney injury resulted in severe kidney failure. The patient is dialysis dependent, and he is to continue dialysis 3 times per week. He has fluid overload, legs ed srinivas. He denies PND, orthopnea. Review of Systems: Denies fever, chills. Denies chest pain. Denies nausea, vomiting. Physical Examination: Lungs: Few crackles at bases. Heart: S1, S2. Abdomen: Soft, benign. Extremities: Edema 2+. Lab Work: WBC 14.5, hemoglobin 10.0, hematocrit 34.1, platelet count 391,000. Sodium 136, potassium 3.7, chloride 100, CO2 26, BUN 57, creatinine 3.39, calcium 8.2. Impression: 1.End-stage renal disease. The patient developed acute on chronic kidney injury, resulted in end-st age renal disease. He will continue dialysis 3 times per week. 2.Hypoalbuminemia secondary to liver cirrhosis. Monitor ammonia level, advance p.o. protein intake. 3.Anemia of chronic kidney disease. Monitor hemoglobin level. Adjust VU. 4.Renal osteodystrophy, hyperphosphatemia. Monitor phosphorus level. Adjust binders as needed. WILBERT/ABI Voice ID: [id number] Report ID: [id number]
[2018-11-09] MEDS: HYDROCODONE/APAP 5/325 MG TAB PO PRN ×3 (05:07→19:17)
[2018-11-09 05:16] LABS: Urine Appearance CLEAR; Urine Blood TRACE (NEG); Urine Color DK YELLOW; Urine Glucose NEGATIVE (NEG); Urine Protein NEGATIVE (NEG); Urine Urobilinogen 0.2 mg/dL (0.2-1.0)
[2018-11-09 05:37] LABS: Urine Bilirubin NEGATIVE (NEG)
[2018-11-09 05:50] LABS: Urine Amorphous Sediment TRACE /HPF (NONE SEEN); Urine Bacteria <20 /HPF (NONE SEEN); Urine Culture Reflex Order NOT NEEDED; Urine RBC <5 /HPF (NONE SEEN)
--- NOTE | 2018-11-09 07:50 | RAD REPORT ---
EXAM DESCRIPTION: Uche Galvan And Tad (2 Views)11/09/2018 7:36 am CLINICAL HISTORY: Shortness of breath COMPARISON: July 2018 FINDINGS: The lungs appear clear of acute infiltrate. The heart is markedly enlarged. Central venou s catheter has its tip in the right atrium
[2018-11-09] MEDS: COLLAGENASE 30 GM OINTMENT TOP SCH (08:00)
[2018-11-09] MEDS: PROMOD 30 ML DOSE PO SCH ×2 (08:00→19:14)
[2018-11-09] MEDS: METOPROLOL TAR 50 MG TAB PO SCH ×2 (08:00→19:16)
[2018-11-09] MEDS: ALLOPURINOL 100 MG TAB PO SCH (08:13)
[2018-11-09] MEDS: FERROUS SULFATE 325 MG TAB PO SCH ×2 (08:14→19:16)
[2018-11-09] MEDS: APIXABAN 2.5 MG TABLET PO SCH ×2 (08:14→19:16)
[2018-11-09] MEDS: GABAPENTIN 300 MG CAP PO SCH ×2 (08:14→19:16)
[2018-11-09] MEDS: MIDODRINE HCL 5 MG TABLET PO SCH ×3 (08:14→20:21)
[2018-11-09] MEDS: SERTRALINE HCL 50 MG TAB PO SCH (08:14)
[2018-11-09] MEDS: FE SULF/FA/VIT B COMP & C TAB PO SCH (08:14)
[2018-11-09] MEDS: LACTULOSE 20 GM/30 ML UCUP PO SCH ×3 (08:15→20:14)
[2018-11-09] MEDS: FUROSEMIDE 40 MG TABLET PO SCH ×2 (08:15→16:56)
--- NOTE | 2018-11-09 10:29 | FAST ---
SHIFT START DATE/TIME: 11/09/2018 07:00 (CDT) SHIFT END DATE/TIME: 11/09/2018 19:00 (CDT) NAME ANTWON MG DATE OF : 1945 DATE OF ADMISSION: 11/05/2018 22:49 (CDT) PHONE: AGE: 73 SSN# [id number] GENDER: Male ENCOUNTER PHYSICIAN: Dr. Giorgio Leon M.D. ADMISSION DIAGNOSIS: - Medically Complex Conditions 17 - Terminal Care (17.6) Acute renal Failure. EATING: EATING - STEP 1: Does the patient require the assistance of a person or device, or need extra time when eating? Yes. EATING - STEP 2: Does the patient require the assistance of a helper? No, patient only requires an assistive device, O R s/he takes more than reasonable time to eat, OR there is a safety concern, OR s/he requires modifie d food consistency EATING - SCORE: 6-GEO GROOMING: Wash, rinse, and dry face Wash, rinse, and dry hands GROOMING - STEP 1: Does the patient require the assistance of a person or device, or need extra time when grooming? No. GROOMING - SCORE: 7-IND BATHING: Activity did not occur on this shift BATHING - SCORE: 0-UNK DRESSING - UPPER BODY: Activity did not occur on this shift ARTICLES SCORE Total number of steps: 0 DRESSING - UPPER BODY - SCORE: 0-UNK DRESSING - LOWER BODY: Elastic waist pants (three steps) Slip-on shoe - Left foot (one step) Slip-on shoe - Right foot (one step) Sock - Left foot (one step) Sock - Right foot (one step) ARTICLES SCORE Total number of steps: 7 DRESSING - LOWER BODY - STEP 1: Does the patient require help from a person or device, or need extra time when dressing below the dorote[address] st? Yes. DRESSING - LOWER BODY - STEP 2: Does the patient require the assistance of a helper? Yes. DRESSING - LOWER BODY - STEP 3: Does the helper touch the patient while dressing? No. DRESSING - LOWER BODY - SCORE: 5-SUP TOILETING: TOILETING - STEP 1: Does the patient require the assistance of a person or device, or need extra time with toileting? Yes . TOILETING - STEP 2: Does the patient require the assistance of a helper? Yes. TOILETING - STEP 3: How much assistance does the patient require from the helper? Hands-on assistance from the helper TOILETING - STEP 4: Of the 3 tasks: 1) Adjusting clothing prior to use, 2) Cleansing of perineal area, 3) Adjusting clot nicolas after use; How many tasks does the patient perform WITHOUT assistance of the helper? Three tasks with steadying assistance from the helper TOILETING - SCORE: 4-MIN BLADDER MANAGEMENT: BLADDER MANAGEMENT - STEP 1: Does the patient control the bladder completely and intentionally without equipment or devices or med ications, and is always continent? No. BLADDER MANAGEMENT - STEP 2: Does the patient require the assistance of a helper? Yes. BLADDER MANAGEMENT - STEP 3: How much assistance does the patient require from the helper? Only supervision, stand-by, cuing, or c oaxing BLADDER MANAGEMENT - SCORE: 5-SUP BLADDER MANAGEMENT - FREQUENCY OF ACCIDENTS: BLADDER MANAGEMENT(FA) - STEP 1: How many accidents has the patient had during the current shift? 0 BOWEL MANAGEMENT: Activity did not occur on this shift BOWEL MANAGEMENT - SCORE: 7-IND BOWEL MANAGEMENT - FREQUENCY OF ACCIDENTS: BOWEL MANAGEMENT(FA) - STEP 1: How many accidents has the patient had during the current shift? 0 TRANSFERS: BED, CHAIR, WHEELCHAIR: TRANSFERS: BED, CHAIR, WHEELCHAIR - STEP 1: Does the patient require assistance of a person or device, or need extra time with bed, chair, or whe elchair transfers? Yes. TRANSFERS: BED, CHAIR, WHEELCHAIR - STEP 2: Does the patient require the assistance of a helper? Yes. TRANSFERS: BED, CHAIR, WHEELCHAIR - STEP 3: How much assistance does the patient require from the helper? Only supervision TRANSFERS: BED, CHAIR, WHEELCHAIR - SCORE: 5-SUP TRANSFERS: TOILET: TRANSFERS: TOILET - STEP 1: Does the patient require the assistance of a person or device, or need extra time with toilet transfe rs? Yes. TRANSFERS: TOILET - STEP 2: Does the patient require the assistance of a helper? Yes. TRANSFERS: TOILET - STEP 3: How much assistance does the patient require from the helper? Patient performs half or more of the tr ansferring tasks TRANSFERS: TOILET - STEP 4: Does the patient need only incidental help such as contact guard or steadying during toilet transfer? Yes. TRANSFERS: TOILET - SCORE: 4-MIN TRANSFERS: SHOWER: Activity did not occur on this shift TRANSFERS: SHOWER - SCORE: 0-UNK TRANSFERS: TUB: Activity did not occur on this shift TRANSFERS: TUB - SCORE: 0-UNK LOCOMOTION: WALK: Activity did not occur on this shift LOCOMOTION: WALK - SCORE: 0-UNK LOCOMOTION: WHEELCHAIR: Activity did not occur on this shift LOCOMOTION: WHEELCHAIR - SCORE: 0-UNK COMPREHENSION: COMPREHENSION: TYPE: Both COMPREHENSION - STEP 1: Does the patient require help from a person or device, or need extra time to understand complex and a bstract ideas (such as current events, finances, discharge planning, medical issues, relationships, e tc)? Yes. COMPREHENSION - STEP 2: Does the patient require help to understand questions or statements about basic needs or ideas (such as hunger, thirst, sleep, safety, daily schedule, room location, or discomfort) half or more of the t tracie? No. COMPREHENSION - STEP 3: How often does the patient need help to understand directions and conversation about basic needs? Les s than 10% of the time COMPREHENSION - SCORE: 5-SUP EXPRESSION EXPRESSION: TYPE: Both EXPRESSION - STEP 1: Does the patient require help from a person or device, or need extra time expressing complex and abst ract ideas (such as current events, finances, discharge planning, medical issues, relationships, etc) ? No. EXPRESSION - STEP 2: Does the patient need extra time, require an assistive device (such as augmentive communication syste m or a communication board), OR does s/he have mild difficulty expressing complex and abstract ideas (including mild dysarthria or mild word-find problems)? No. EXPRESSION - SCORE: 7-IND SOCIAL INTERACTION: SOCIAL INTERACTION - STEP 1: Does the patient require a helper to interact with others in social and therapeutic situations? No. SOCIAL INTERACTION - STEP 2: Does the patient need extra time in social situations, OR does s/he interact with staff, other patien ts, and family members ONLY in structured environments, OR does s/he require medication for social in teraction? No. SOCIAL INTERACTION - SCORE: 7-IND PROBLEM SOLVING: PROBLEM SOLVING - STEP 1: Does the patient need help from a person or device, or need extra time to solve complex problems such as managing a checking account or confronting interpersonal problems? Yes. PROBLEM SOLVING - STEP 2: Does the patient solve basic routine problems half or more of the time? Yes. PROBLEM SOLVING - STEP 3: How often does the patient need help to solve basic routine problems? Less than 10% of the time PROBLEM SOLVING - SCORE: 5-SUP MEMORY: MEMORY - STEP 1: Does the patient need help from a person or device, or need extra time to remember frequently encount ered people, daily routines, and executing requests? Yes. MEMORY - STEP 2: How often does the patient need help to remember frequently encountered people, daily routines, and e xecuting requests? 10% - 24% of the time MEMORY - SCORE: 4-MIN SIGNATURE PANEL: The following modified sections: Eating - Score, Grooming - Score, Bathing - Score, Dressing - Upper Body - Score, Dressing - Lower Body - Score, Toileting - Score, Bladder Management - Score, Bowel Man agement - Score, Transfers: Bed, Chair, Wheelchair - Score, Transfers: Toilet - Score, Transfers: Apryl wer - Score, Transfers: Tub - Score, Locomotion: Walk - Score, Locomotion: Wheelchair - Score, Compre hension - Score, Expression - Score, Social Interaction - Score, Problem Solving - Score, Memory - Sc ore were [electronically] signed by Aleah Sevilla C.N.A. on ThuNov 09 2018 10:28:58 T-0500 ([place])
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
[2018-11-09] MEDS: DOXEPIN HCL 25 MG CAP PO SCH (20:21)
--- NOTE | 2018-11-10 01:05 | FAST ---
SHIFT START DATE/TIME: 11/09/2018 19:00 (CDT) SHIFT END DATE/TIME: 11/10/2018 07:00 (CDT) NAME ANTWON MG DATE OF : 1945 DATE OF ADMISSION: 11/05/2018 22:49 (CDT) PHONE: AGE: 73 SSN# [id number] GENDER: Male ENCOUNTER PHYSICIAN: Dr. Giorgio Leon M.D. ADMISSION DIAGNOSIS: - Medically Complex Conditions 17 - Terminal Care (17.6) Acute renal Failure. EATING: Activity did not occur on this shift EATING - SCORE: 0-UNK GROOMING: Activity did not occur on this shift GROOMING - SCORE: 0-UNK BATHING: Activity did not occur on this shift BATHING - SCORE: 0-UNK DRESSING - UPPER BODY: Activity did not occur on this shift ARTICLES SCORE Total number of steps: 0 DRESSING - UPPER BODY - SCORE: 0-UNK DRESSING - LOWER BODY: Patient is not dressing in public clothing ARTICLES SCORE Total number of steps: 0 DRESSING - LOWER BODY - SCORE: 0-UNK TOILETING: TOILETING - STEP 1: Does the patient require the assistance of a person or device, or need extra time with toileting? Yes . TOILETING - STEP 2: Does the patient require the assistance of a helper? Yes. TOILETING - STEP 3: How much assistance does the patient require from the helper? Hands-on assistance from the helper TOILETING - STEP 4: Of the 3 tasks: 1) Adjusting clothing prior to use, 2) Cleansing of perineal area, 3) Adjusting clot nicolas after use; How many tasks does the patient perform WITHOUT assistance of the helper? Three tasks with steadying assistance from the helper TOILETING - SCORE: 4-MIN BLADDER MANAGEMENT: BLADDER MANAGEMENT - STEP 1: Does the patient control the bladder completely and intentionally without equipment or devices or med ications, and is always continent? Yes. BLADDER MANAGEMENT - SCORE: 7-IND BOWEL MANAGEMENT: Activity did not occur on this shift BOWEL MANAGEMENT - SCORE: 7-IND TRANSFERS: BED, CHAIR, WHEELCHAIR: TRANSFERS: BED, CHAIR, WHEELCHAIR - STEP 1: Does the patient require assistance of a person or device, or need extra time with bed, chair, or whe elchair transfers? Yes. TRANSFERS: BED, CHAIR, WHEELCHAIR - STEP 2: Does the patient require the assistance of a helper? Yes. TRANSFERS: BED, CHAIR, WHEELCHAIR - STEP 3: How much assistance does the patient require from the helper? Steadying/guiding assistance TRANSFERS: BED, CHAIR, WHEELCHAIR - SCORE: 4-MIN TRANSFERS: TOILET: TRANSFERS: TOILET - STEP 1: Does the patient require the assistance of a person or device, or need extra time with toilet transfe rs? Yes. TRANSFERS: TOILET - STEP 2: Does the patient require the assistance of a helper? Yes. TRANSFERS: TOILET - STEP 3: How much assistance does the patient require from the helper? Patient performs half or more of the tr ansferring tasks TRANSFERS: TOILET - STEP 4: Does the patient need only incidental help such as contact guard or steadying during toilet transfer? Yes. TRANSFERS: TOILET - SCORE: 4-MIN TRANSFERS: SHOWER: Activity did not occur on this shift TRANSFERS: SHOWER - SCORE: 0-UNK TRANSFERS: TUB: Activity did not occur on this shift TRANSFERS: TUB - SCORE: 0-UNK LOCOMOTION: WALK: Activity did not occur on this shift LOCOMOTION: WALK - SCORE: 0-UNK LOCOMOTION: WHEELCHAIR: Activity did not occur on this shift LOCOMOTION: WHEELCHAIR - SCORE: 0-UNK COMPREHENSION: COMPREHENSION: TYPE: Both COMPREHENSION - STEP 1: Does the patient require help from a person or device, or need extra time to understand complex and a bstract ideas (such as current events, finances, discharge planning, medical issues, relationships, e tc)? No. COMPREHENSION - STEP 2: Does the patient need extra time, require an assistive device (such as glasses for visual comprehensi on or a hearing aid for auditory comprehension) or does s/he have mild difficulty understanding compl ex and abstract information? Yes. COMPREHENSION - SCORE: 6-GEO EXPRESSION EXPRESSION: TYPE: Both EXPRESSION - STEP 1: Does the patient require help from a person or device, or need extra time expressing complex and abst ract ideas (such as current events, finances, discharge planning, medical issues, relationships, etc) ? No. EXPRESSION - STEP 2: Does the patient need extra time, require an assistive device (such as augmentive communication syste m or a communication board), OR does s/he have mild difficulty expressing complex and abstract ideas (including mild dysarthria or mild word-find problems)? No. EXPRESSION - SCORE: 7-IND SOCIAL INTERACTION: SOCIAL INTERACTION - STEP 1: Does the patient require a helper to interact with others in social and therapeutic situations? No. SOCIAL INTERACTION - STEP 2: Does the patient need extra time in social situations, OR does s/he interact with staff, other patien ts, and family members ONLY in structured environments, OR does s/he require medication for social in teraction? Yes, patient requires medication for social interaction SOCIAL INTERACTION - SCORE: 6-GEO PROBLEM SOLVING: Patient requires bed/chair alarms due to attempts to get up unassisted when helper is needed. PROBLEM SOLVING - STEP 1: How often do the bed/chair alarms go off? Occasionally - the alarms go off about 25% or less PROBLEM SOLVING - SCORE: 4-MIN MEMORY: MEMORY - STEP 1: How often do the bed/chair alarms go off? Occasionally - the alarms go off about 25% of the time or l ess MEMORY - SCORE: 4-MIN SIGNATURE PANEL: The following modified sections: Eating - Score, Grooming - Score, Bathing - Score, Dressing - Upper Body - Score, Dressing - Lower Body - Score, Toileting - Score, Bladder Management - Score, Bowel Man agement - Score, Transfers: Bed, Chair, Wheelchair - Score, Transfers: Toilet - Score, Transfers: Apryl wer - Score, Transfers: Tub - Score, Locomotion: Walk - Score, Locomotion: Wheelchair - Score, Compre hension - Score, Expression - Score, Social Interaction - Score, Problem Solving - Score, Memory - Sc ore were [electronically] signed by Araceli Crawford CNA on ThuNov 10 2018 01:04:42 T-0500 ([place] Da ylight Time)
--- NOTE | 2018-11-10 03:56 | PN ---
Date of Progress Note: 11/09/2018 Subjective: The patient was admitted for rehabilitation. The patient had acute kidney injury, initi ated dialysis. Physical Examination: Vital Signs: Blood pressure 120/66, pulse of 96. Chest: Clear to auscultation. Heart: S1and S2 regular. Abdomen: Soft. Nontender. Extremities: +2 edema. Laboratory Data: H and H 10/34.4. Sodium 136, potassium 3.7, bicarb 26, BUN 57, creatinine 3.9, GFR of 18, calcium 8.2. Assessment And Plan: 1.Acute kidney injury secondary to toxic acute tubular necrosis, poor perfusion acute tubular necros is, oliguric, over volume. I am going to continue dialysis. We will monitor for full workup. 2.Hypertension. We will utilize blood pressure for more ultrafiltration. 3.Anemia, stable. 4.Deconditioning. Continue physial therapy and occupational therapy. IBETH/MODL Voice ID: [id number] Report ID: [id number]
[2018-11-10 06:21] LABS: Absolute Lymphocytes (CBC) 1.1 K/uL (0.7-4.9); Basophils % 1.2 % (0-1.3); Eosinophils % 8.1 % (0-4.4); Lymphocytes % 9.9 % (15.3-44.8); Monocytes % 13.9 % (3.3-12.3); RBC Red Blood Cell Count 3.93 M/uL (4.33-5.43)
[2018-11-10] MEDS: HYDROCODONE/APAP 5/325 MG TAB PO PRN ×4 (06:44→22:07)
[2018-11-10] MEDS: METOPROLOL TAR 50 MG TAB PO SCH ×2 (08:00→22:04)
[2018-11-10] MEDS: FE SULF/FA/VIT B COMP & C TAB PO SCH (08:20)
[2018-11-10] MEDS: MIDODRINE HCL 5 MG TABLET PO SCH ×3 (08:20→22:00)
[2018-11-10] MEDS: LACTULOSE 20 GM/30 ML UCUP PO SCH ×3 (08:20→22:00)
[2018-11-10] MEDS: GABAPENTIN 300 MG CAP PO SCH ×2 (08:20→22:00)
[2018-11-10] MEDS: SERTRALINE HCL 50 MG TAB PO SCH (08:21)
[2018-11-10] MEDS: ALLOPURINOL 100 MG TAB PO SCH (08:21)
[2018-11-10] MEDS: FUROSEMIDE 40 MG TABLET PO SCH ×2 (08:21→16:23)
[2018-11-10] MEDS: PROMOD 30 ML DOSE PO SCH ×2 (08:22→22:01)
[2018-11-10] MEDS: APIXABAN 2.5 MG TABLET PO SCH ×2 (08:22→22:00)
[2018-11-10] MEDS: ACETIC ACID 0.25% IRRIG IRR SCH (11:43)
[2018-11-10] MEDS: FERROUS SULFATE 325 MG TAB PO SCH ×2 (11:43→22:00)
[2018-11-10] MEDS: COLLAGENASE 30 GM OINTMENT TOP SCH (11:44)
--- NOTE | 2018-11-10 13:09 | FAST ---
ENCOUNTER DATE AND TIME: 11/10/2018 08:00 (CDT) NAME ANTWON MG DATE OF : 1945 DATE OF ADMISSION: 11/05/2018 22:49 (CDT) PHONE: AGE: 73 SSN# [id number] GENDER: Male ENCOUNTER PHYSICIAN: Dr. Giorgio Leon M.D. ADMISSION DIAGNOSIS: - Medically Complex Conditions 17 - Terminal Care (17.6) Acute renal Failure. EATING: Activity did not occur on this shift EATING - SCORE: 0-UNK GROOMING: Comb/brush hair Wash, rinse, and dry face Wash, rinse, and dry hands GROOMING - STEP 1: Does the patient require the assistance of a person or device, or need extra time when grooming? No. GROOMING - SCORE: 7-IND BATHING: Abdomen BATHING - STEP 1: Does the patient require the assistance of a person or device, or need extra time when bathing? Yes. BATHING - STEP 2: Does the patient require the assistance of a helper? Yes. BATHING - STEP 3: How much assistance does the patient require from the helper? Only incidental help such as placement of a wash cloth in his/her hand a few times as s/he bathes OR help to bathe just one or two areas of the body BATHING - SCORE: 4-MIN DRESSING - UPPER BODY: T-shirt/pullover shirt (four steps) ARTICLES SCORE Total number of steps: 4 DRESSING - UPPER BODY - STEP 1: Does the patient require help from a person or device, or need extra time when dressing above the dor[address]? No. DRESSING - UPPER BODY - SCORE: 7-IND DRESSING - LOWER BODY: Elastic waist pants (three steps) Sock - Left foot (one step) Sock - Right foot (one step) Underwear (three steps) ARTICLES SCORE Total number of steps: 8 DRESSING - LOWER BODY - STEP 1: Does the patient require help from a person or device, or need extra time when dressing below the dorote[address]? Yes. DRESSING - LOWER BODY - STEP 2: Does the patient require the assistance of a helper? Yes. DRESSING - LOWER BODY - STEP 3: Does the helper touch the patient while dressing? Yes. DRESSING - LOWER BODY - STEP 4: How many of the total steps does the patient complete on his/her own? 7 DRESSING - LOWER BODY - SCORE: 4-MIN TOILETING: Activity did not occur on this shift TOILETING - SCORE: 0-UNK BLADDER MANAGEMENT: Activity did not occur on this shift BLADDER MANAGEMENT - SCORE: 7-IND BOWEL MANAGEMENT: Activity did not occur on this shift BOWEL MANAGEMENT - SCORE: 7-IND TRANSFERS: BED, CHAIR, WHEELCHAIR: Activity did not occur on this shift TRANSFERS: BED, CHAIR, WHEELCHAIR - SCORE: 0-UNK TRANSFERS: TOILET: Activity did not occur on this shift TRANSFERS: TOILET - SCORE: 0-UNK TRANSFERS: SHOWER: TRANSFERS: SHOWER - STEP 1: Does the patient require the assistance of a person or device, or need extra time with shower transfe rs? Yes. TRANSFERS: SHOWER - STEP 2: Does the patient require the assistance of a helper? Yes. TRANSFERS: SHOWER - STEP 3: How much assistance does the patient require from the helper? Only supervision, cuing, coaxing, or he lp to set out transfer equipment or to lock brakes and/or lift foot rests TRANSFERS: SHOWER - SCORE: 5-SUP TRANSFERS: TUB: Activity did not occur on this shift TRANSFERS: TUB - SCORE: 0-UNK LOCOMOTION: WALK: Activity did not occur on this shift LOCOMOTION: WALK - SCORE: 0-UNK LOCOMOTION: WHEELCHAIR: Activity did not occur on this shift LOCOMOTION: WHEELCHAIR - SCORE: 0-UNK LOCOMOTION: STAIRS: Activity did not occur on this shift LOCOMOTION: STAIRS - SCORE: 0-UNK COMPREHENSION: COMPREHENSION: TYPE: Both COMPREHENSION - STEP 1: Does the patient require help from a person or device, or need extra time to understand complex and a bstract ideas (such as current events, finances, discharge planning, medical issues, relationships, e tc)? Yes. COMPREHENSION - STEP 2: Does the patient require help to understand questions or statements about basic needs or ideas (such as hunger, thirst, sleep, safety, daily schedule, room location, or discomfort) half or more of the t tracie? No. COMPREHENSION - STEP 3: How often does the patient need help to understand directions and conversation about basic needs? Les s than 10% of the time COMPREHENSION - SCORE: 5-SUP EXPRESSION EXPRESSION: TYPE: Both EXPRESSION - STEP 1: Does the patient require help from a person or device, or need extra time expressing complex and abst ract ideas (such as current events, finances, discharge planning, medical issues, relationships, etc) ? No. EXPRESSION - STEP 2: Does the patient need extra time, require an assistive device (such as augmentive communication syste m or a communication board), OR does s/he have mild difficulty expressing complex and abstract ideas (including mild dysarthria or mild word-find problems)? Yes. EXPRESSION - SCORE: 6-GEO SOCIAL INTERACTION: SOCIAL INTERACTION - STEP 1: Does the patient require a helper to interact with others in social and therapeutic situations? No. SOCIAL INTERACTION - STEP 2: Does the patient need extra time in social situations, OR does s/he interact with staff, other patien ts, and family members ONLY in structured environments, OR does s/he require medication for social in teraction? Yes, patient needs extra time SOCIAL INTERACTION - SCORE: 6-GEO PROBLEM SOLVING: PROBLEM SOLVING - STEP 1: Does the patient need help from a person or device, or need extra time to solve complex problems such as managing a checking account or confronting interpersonal problems? Yes. PROBLEM SOLVING - STEP 2: Does the patient solve basic routine problems half or more of the time? Yes. PROBLEM SOLVING - STEP 3: How often does the patient need help to solve basic routine problems? 10%-24% of the time PROBLEM SOLVING - SCORE: 4-MIN MEMORY: MEMORY - SCORE: 0-UNK SIGNATURE PANEL: The following modified sections: Eating - Score, Grooming - Score, Bathing - Score, Dressing - Upper Body - Score, Dressing - Lower Body - Score, Toileting - Score, Transfers: Bed, Chair, Wheelchair - S core, Transfers: Toilet - Score, Transfers: Shower - Score, Transfers: Tub - Score, Comprehension - S core, Expression - Score, Social Interaction - Score, Problem Solving - Score, Memory - Score were [e lectronically] signed by Cristin Deutsch OT on ThuNov 10 2018 13:08:51 T-0500 ([place] Da ylight Time)
--- NOTE | 2018-11-10 13:53 | FAST ---
SHIFT START DATE/TIME: 11/10/2018 07:00 (CDT) SHIFT END DATE/TIME: 11/10/2018 19:00 (CDT) NAME ANTWON MG DATE OF : 1945 DATE OF ADMISSION: 11/05/2018 22:49 (CDT) PHONE: AGE: 73 SSN# [id number] GENDER: Male ENCOUNTER PHYSICIAN: Dr. Giorgio Leon M.D. ADMISSION DIAGNOSIS: - Medically Complex Conditions 17 - [facility] (17.6) Acute renal Failure. EATING: EATING - STEP 1: Does the patient require the assistance of a person or device, or need extra time when eating? Yes. EATING - STEP 2: Does the patient require the assistance of a helper? No, patient only requires an assistive device, O R s/he takes more than reasonable time to eat, OR there is a safety concern, OR s/he requires modifie d food consistency EATING - SCORE: 6-GEO GROOMING: Comb/brush hair Oral care Wash, rinse, and dry face Wash, rinse, and dry hands GROOMING - STEP 1: Does the patient require the assistance of a person or device, or need extra time when grooming? Yes. GROOMING - STEP 2: Does the patient require the assistance of a helper? No. The patient only requires an assistive devic e, OR takes more than reasonable time to groom, OR there is a concern for safety as the patient groom s GROOMING - SCORE: 6-GEO BATHING: Activity did not occur on this shift BATHING - SCORE: 0-UNK DRESSING - UPPER BODY: Activity did not occur on this shift ARTICLES SCORE Total number of steps: 0 DRESSING - UPPER BODY - SCORE: 0-UNK DRESSING - LOWER BODY: Activity did not occur on this shift ARTICLES SCORE Total number of steps: 0 DRESSING - LOWER BODY - SCORE: 0-UNK TOILETING: TOILETING - STEP 1: Does the patient require the assistance of a person or device, or need extra time with toileting? Yes . TOILETING - STEP 2: Does the patient require the assistance of a helper? No. TOILETING - SCORE: 6-GEO BLADDER MANAGEMENT: BLADDER MANAGEMENT - STEP 1: Does the patient control the bladder completely and intentionally without equipment or devices or med ications, and is always continent? Yes. BLADDER MANAGEMENT - SCORE: 7-IND BLADDER MANAGEMENT - FREQUENCY OF ACCIDENTS: BLADDER MANAGEMENT(FA) - STEP 1: How many accidents has the patient had during the current shift? 0 BOWEL MANAGEMENT: Activity did not occur on this shift BOWEL MANAGEMENT - SCORE: 7-IND TRANSFERS: BED, CHAIR, WHEELCHAIR: TRANSFERS: BED, CHAIR, WHEELCHAIR - STEP 1: Does the patient require assistance of a person or device, or need extra time with bed, chair, or whe elchair transfers? Yes. TRANSFERS: BED, CHAIR, WHEELCHAIR - STEP 2: Does the patient require the assistance of a helper? Yes. TRANSFERS: BED, CHAIR, WHEELCHAIR - STEP 3: How much assistance does the patient require from the helper? Steadying/guiding assistance TRANSFERS: BED, CHAIR, WHEELCHAIR - SCORE: 4-MIN TRANSFERS: TOILET: TRANSFERS: TOILET - STEP 1: Does the patient require the assistance of a person or device, or need extra time with toilet transfe rs? Yes. TRANSFERS: TOILET - STEP 2: Does the patient require the assistance of a helper? No. Patient only requires an assistive device cho ch as a grab bar or special seat, OR s/he takes more than reasonable time to perform toilet transfers , OR there is a safety concern when s/he performs toilet transfers. TRANSFERS: TOILET - SCORE: 6-GEO TRANSFERS: SHOWER: Activity did not occur on this shift TRANSFERS: SHOWER - SCORE: 0-UNK TRANSFERS: TUB: Activity did not occur on this shift TRANSFERS: TUB - SCORE: 0-UNK LOCOMOTION: WALK: Activity did not occur on this shift LOCOMOTION: WALK - SCORE: 0-UNK LOCOMOTION: WHEELCHAIR: Activity did not occur on this shift LOCOMOTION: WHEELCHAIR - SCORE: 0-UNK COMPREHENSION: COMPREHENSION: TYPE: Both COMPREHENSION - STEP 1: Does the patient require help from a person or device, or need extra time to understand complex and a bstract ideas (such as current events, finances, discharge planning, medical issues, relationships, e tc)? No. COMPREHENSION - STEP 2: Does the patient need extra time, require an assistive device (such as glasses for visual comprehensi on or a hearing aid for auditory comprehension) or does s/he have mild difficulty understanding compl ex and abstract information? Yes. COMPREHENSION - SCORE: 6-GEO EXPRESSION EXPRESSION: TYPE: Both EXPRESSION - STEP 1: Does the patient require help from a person or device, or need extra time expressing complex and abst ract ideas (such as current events, finances, discharge planning, medical issues, relationships, etc) ? Yes. EXPRESSION - STEP 2: Does the patient require help to express basic necessities or ideas (such as hunger, thirst, sleep, s afety, daily schedule, room location, or discomfort) half or more of the time? No. EXPRESSION - STEP 3: How often does the patient need help to express directions and conversation about basic needs? Less t pacheco 10% of the time EXPRESSION - SCORE: 5-SUP SOCIAL INTERACTION: SOCIAL INTERACTION - STEP 1: Does the patient require a helper to interact with others in social and therapeutic situations? No. SOCIAL INTERACTION - STEP 2: Does the patient need extra time in social situations, OR does s/he interact with staff, other patien ts, and family members ONLY in structured environments, OR does s/he require medication for social in teraction? Yes, patient needs extra time SOCIAL INTERACTION - SCORE: 6-GEO PROBLEM SOLVING: PROBLEM SOLVING - STEP 1: Does the patient need help from a person or device, or need extra time to solve complex problems such as managing a checking account or confronting interpersonal problems? No. PROBLEM SOLVING - STEP 2: Does the patient require extra time to make decisions or solve problems, OR does s/he have slight dif ficulty reading, initiating, or self-correcting in unfamiliar situations? Yes, patient needs extra ti me. PROBLEM SOLVING - SCORE: 6-GEO MEMORY: MEMORY - STEP 1: Does the patient need help from a person or device, or need extra time to remember frequently encount ered people, daily routines, and executing requests? No. MEMORY - STEP 2: Does the patient have slight difficulty recognizing frequently encountered people, daily routines, or executing requests without the need for repetition or using self-initiated or environmental cues to remember? Yes. MEMORY - SCORE: 6-GEO SIGNATURE PANEL: The following modified sections: Eating - Score, Grooming - Score, Bathing - Score, Dressing - Upper Body - Score, Dressing - Lower Body - Score, Toileting - Score, Bladder Management - Score, Bowel Man agement - Score, Transfers: Bed, Chair, Wheelchair - Score, Transfers: Toilet - Score, Transfers: Apryl wer - Score, Transfers: Tub - Score, Locomotion: Walk - Score, Locomotion: Wheelchair - Score, Compre hension - Score, Social Interaction - Score, Problem Solving - Score, Memory - Score, Expression - Sc ore were [electronically] signed by Aleah Sevilla C.N.A. on ThuNov 10 2018 13:53:02 [facility]-0500 (Centra [place] Daylight Time)
--- NOTE | 2018-11-10 14:39 | FAST ---
ENCOUNTER DATE AND TIME: 11/10/2018 08:00 (CDT) NAME ANTWON MG DATE OF : 1945 DATE OF ADMISSION: 11/05/2018 22:49 (CDT) PHONE: AGE: 73 SSN# [id number] GENDER: Male ENCOUNTER PHYSICIAN: Dr. Giorgio Leon M.D. ADMISSION DIAGNOSIS: - Medically Complex Conditions 17 - Terminal Care (17.6) Acute renal Failure. EATING: Activity did not occur on this shift EATING - SCORE: 0-UNK GROOMING: Activity did not occur on this shift GROOMING - SCORE: 0-UNK BATHING: Activity did not occur on this shift BATHING - SCORE: 0-UNK DRESSING - UPPER BODY: Activity did not occur on this shift Patient is not dressing in public clothing ARTICLES SCORE Total number of steps: 0 DRESSING - UPPER BODY - SCORE: 0-UNK DRESSING - LOWER BODY: Activity did not occur on this shift Patient is not dressing in public clothing ARTICLES SCORE Total number of steps: 0 DRESSING - LOWER BODY - SCORE: 0-UNK TOILETING: Activity did not occur on this shift TOILETING - SCORE: 0-UNK BLADDER MANAGEMENT: Activity did not occur on this shift BLADDER MANAGEMENT - SCORE: 7-IND BOWEL MANAGEMENT: Activity did not occur on this shift BOWEL MANAGEMENT - SCORE: 7-IND TRANSFERS: BED, CHAIR, WHEELCHAIR: TRANSFERS: BED, CHAIR, WHEELCHAIR - STEP 1: Does the patient require assistance of a person or device, or need extra time with bed, chair, or whe elchair transfers? Yes. TRANSFERS: BED, CHAIR, WHEELCHAIR - STEP 2: Does the patient require the assistance of a helper? Yes. TRANSFERS: BED, CHAIR, WHEELCHAIR - STEP 3: How much assistance does the patient require from the helper? Only supervision TRANSFERS: BED, CHAIR, WHEELCHAIR - SCORE: 5-SUP TRANSFERS: TOILET: Activity did not occur on this shift TRANSFERS: TOILET - SCORE: 0-UNK TRANSFERS: SHOWER: Activity did not occur on this shift TRANSFERS: SHOWER - SCORE: 0-UNK TRANSFERS: TUB: Activity did not occur on this shift TRANSFERS: TUB - SCORE: 0-UNK LOCOMOTION: WALK: LOCOMOTION: WALK - STEP 1: Does the patient need help from a person or device, or need extra time to walk 150 feet? Yes. LOCOMOTION: WALK - STEP 2: How much assistance does the patient require to walk a minimum of 150 feet? Only supervision, cuing, or coaxing LOCOMOTION: WALK - SCORE: 5-SUP LOCOMOTION: WHEELCHAIR: LOCOMOTION: WHEELCHAIR - STEP 1: Does the patient need help to go 150 feet in a wheelchair? Yes. LOCOMOTION: WHEELCHAIR - STEP 2: How much assistance does the patient need from the helper? Only supervision, cuing, or coaxing LOCOMOTION: WHEELCHAIR - SCORE: 5-SUP LOCOMOTION: STAIRS: LOCOMOTION: STAIRS - STEP 1: Does the patient need help to go up and down 12 to 14 stairs? Yes. LOCOMOTION: STAIRS - STEP 2: How much assistance does the patient need from the helper to go a minimum of 12 to 14 stairs? Only in cidental help such as contact guarding or steadying LOCOMOTION: STAIRS - SCORE: 4-MIN COMPREHENSION: COMPREHENSION - SCORE: 0-UNK EXPRESSION EXPRESSION - SCORE: 0-UNK SOCIAL INTERACTION: SOCIAL INTERACTION - SCORE: 0-UNK PROBLEM SOLVING: PROBLEM SOLVING - SCORE: 0-UNK MEMORY: MEMORY - SCORE: 0-UNK SIGNATURE PANEL: The following modified sections: Transfers: Bed, Chair, Wheelchair - Score, Transfers: Toilet - Score , Locomotion: Walk - Score, Locomotion: Wheelchair - Score, Locomotion: Stairs - Score were [tamanna silva] signed by Cristin Mendoza PTA on ThuNov 10 2018 14:38:34 GMT-0500 (Central Daylight Time)
[2018-11-10] MEDS: EPOETIN ALFA 10,000 UNIT/ML VIAL SQ SCH (18:26)
[2018-11-10 18:36] LABS: Albumin 2.9 g/dL (3.4-5.0); Phosphorus 5.5 mg/dL (2.5-4.9); Potassium 3.6 mmol/L (3.5-5.1)
--- NOTE | 2018-11-10 19:07 | R.PN ---
ENCOUNTER DATE AND TIME: 11/10/2018 19:03 (CDT) NAME TAM MG DATE OF : 1945 DATE OF ADMISSION: 11/05/2018 22:49 (CDT) Acute renal FailureCHIEF COMPLAINT: Debility, acute renal failure. SUBJECTIVE: Pt denied any depression. Pt denied any Shortness of Breath. VITAL SIGNS Temperature: 97.6 F SBP/DBP: 124/67 Pulse: 87 Resp: 16 Therapeutic exercises and ADLs done with contact guard assistance. Hgb is 9.0, WBC 10.6, glucose 124 to 177, lactic acid 2.1 and procalcitonin 0.77. Chest x-ray: no acu te infiltrate. MEDICATION ALLERGIES: No Known Drug Allergies (NKDA) ENVIRONMENTAL ALLERGIES: None Known - Substance Allergies None Known - Other Allergies None Known NURSING: - Shower allowing shower ACTIVITIES OOB only with supervision THERAPIES: - Dietary and Nutrition Adequate Nutrition. Nutritional Education. Nutritional Supplements. PHYSICAL EXAM - Gen Alert and awake Lying in bed No apparent distress Oriented to: person, time, and place - Skin Ulceration on right leg is dressed with good hemostasis. Abdominal wound have good hemostasis. Normacephalic - Eyes No abnormalities - ENMT No abnormalities - Neck No abnormalities - CVS RRR - Chest No abnormalities - Abd Mildly distended - GI + bowel sound Deferred - Does not produce much urine, on hemodialysis - Ext Moderate edema in both lower extremities. - MSK 4+/5 weakness in both lower extremities. - Neuro No focal deficits - Psych No abnormalities ASSESSMENT: Pt. is a 73 yo Right-handed white male.On 10/18/2018 he was admitted to [facility] with diagnosis Acute renal Failure.His impairment category is Medically Complex Conditions 17 - [facility] (17.6).Pre-morbidly, Pt. was independent/mod-I in Self-Care, Sphincter Control, Transfers Control, Locomotion, Communication, and Social Cognition; and he had good Sphincter Control.Currently , he has deficits of Transfers Control, Locomotion, Endurance, Balance, Safety Awareness, and Self-Ca re.Pt. is now referred to [facility] for acute in-patient rehabilitation [place] to maximize patient's functional independence in activities of daily living, strength, ROM, and m obility.- Rehab Goal Patient has realistic goal of being discharged at assistance level 6-Joel to reside at Home with Fam dale/Relatives. MDM/PLAN: - Physical Therapy Gait dysfunction - to improve, our physical therapists will perform initial evaluation of pt's statu s upon admission and devise an individualized program for Gait Training, and Wheel Chair mobility Inability to transfer - to improve, our physical therapists will perform initial evaluation of pt's status upon admission and devise an individualized program for Bed mobility Need for home safety evaluation - to improve, our physical therapists will perform initial evaluatio n of pt's status upon admission and devise an individualized program for Home Evaluation Need in caregiver upon discharge - to improve, our physical therapists will perform initial evaluati on of pt's status upon admission and devise an individualized program for Caregiver Training Edema - to improve, our physical therapists will perform initial evaluation of pt's status upon admi ssion and devise an individualized program for Elevation Training, and Lymphedema Therapy New precaution - to improve, our physical therapists will perform initial evaluation of pt's status upon admission and devise an individualized program for Patient precaution education Having wound - to improve, our physical therapists will perform initial evaluation of pt's status up on admission and devise an individualized program for Wound Care Poor balance - to improve, our physical therapists will perform initial evaluation of pt's status up on admission and devise an individualized program for Balance Training Poor endurance - to improve, our physical therapists will perform initial evaluation of pt's status upon admission and devise an individualized program for Endurance Training Weakness - to improve, our physical therapists will perform initial evaluation of pt's status upon a dmission and devise an individualized program for Aquatic Therapy, Neuromuscular Reeducation, and Str engthening Achieving independence - to improve, our physical therapists will perform initial evaluation of pt's status upon admission and devise an individualized program for Community Reintegration Activities - Occupational Therapy ADL deficits - to improve, our occupation therapists will perform initial evaluation of pt's status upon admission and devise an individualized program for Bathing, Bed mobility, Community Reintegratio n, Cooking, Dressing, Eating, Fine Motor Skills, Grooming, Homemaking, Kitchen Mobility, Laundry, Pat ient Education, Safety Awareness, Splinting - Positioning, Transfers(Toilet, Tub, Shower), and Wheel Chair Management Need for career services manager - to improve, our occupation therapists will perform initial evaluation of pt's status upon admission and devise an individualized program for Caregiver Training Weakness - to improve, our occupation therapists will perform initial evaluation of pt's status upon admission and devise an individualized program for Aquatic Therapy, Balance, Endurance, UE ROM, and UE strengthening - Other See attached MAR (Medication Administration Record) Tam Mg.pdf - Diet Type Continue Regular - Diet - Liquid Texture Continue Regular - Tube Feed Continue N/A - Diet - Solid Texture Continue Regular - Shower allowing shower FUNCTIONAL STATUS: UPDATED AT WEEKLY TEAM CONFERENCE - Bladder Same accident frequency: 7-Ind - No accidents in the past 7 days - Bowel Same accident frequency: 7-Ind - No accidents in the past 7 days - Walking Same score based on distance walked: 2(50-149ft) - Wheelchair Same score based on distance traveled: 0(N/A) FUNCTIONAL STATUS: - Self-Care A. Eating Joel B. Grooming Joel C. Bathing sup D. Dressing - Upper sup E. Dressing - Lower sup F. Toileting sup - Sphincter Control G: Bladder control Ind H: Bowel control Ind - Transfers Control I. Bed/Chair/Wheelchair sup J. Toilet sup K. Tub/Shower ADNO - Locomotion L. Walk/Wheelchair (C) CGA L. Walk/Wheelchair (W) CGA M. Stairs ADNO - Communication N. Comprehension (B) Ind O. Expression (B) Ind - Social Cognition P. Social Interaction Ind Q. Problem Solving Ind R. Memory Ind - Endurance Fair - Balance Fair - Safety Awareness Fair CURRENT FUNC. DEFICITS: Transfers Control, Locomotion, Endurance, Balance, Safety Awareness, and Self-Care SIGNATURE PANEL: (CDT)
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
[2018-11-10] MEDS: DOXEPIN HCL 25 MG CAP PO SCH (22:00)
--- NOTE | 2018-11-11 01:24 | FAST ---
SHIFT START DATE/TIME: 11/10/2018 19:00 (CDT) SHIFT END DATE/TIME: 11/11/2018 07:00 (CDT) NAME ANTWON MG DATE OF : 1945 DATE OF ADMISSION: 11/05/2018 22:49 (CDT) PHONE: AGE: 73 SSN# [id number] GENDER: Male ENCOUNTER PHYSICIAN: Dr. Giorgio Leon M.D. ADMISSION DIAGNOSIS: - Medically Complex Conditions 17 - Terminal Care (17.6) Acute renal Failure. EATING: Activity did not occur on this shift EATING - SCORE: 0-UNK GROOMING: Oral care Wash, rinse, and dry hands GROOMING - STEP 1: Does the patient require the assistance of a person or device, or need extra time when grooming? Yes. GROOMING - STEP 2: Does the patient require the assistance of a helper? Yes. GROOMING - STEP 3: How much assistance does the patient require from the helper? Only prior equipment preparation/set up from the helper GROOMING - SCORE: 5-SUP BATHING: Activity did not occur on this shift BATHING - SCORE: 0-UNK DRESSING - UPPER BODY: Patient is not dressing in public clothing ARTICLES SCORE Total number of steps: 0 DRESSING - UPPER BODY - SCORE: 0-UNK DRESSING - LOWER BODY: Patient is not dressing in public clothing ARTICLES SCORE Total number of steps: 0 DRESSING - LOWER BODY - SCORE: 0-UNK TOILETING: TOILETING - STEP 1: Does the patient require the assistance of a person or device, or need extra time with toileting? Yes . TOILETING - STEP 2: Does the patient require the assistance of a helper? Yes. TOILETING - STEP 3: How much assistance does the patient require from the helper? Hands-on assistance from the helper TOILETING - STEP 4: Of the 3 tasks: 1) Adjusting clothing prior to use, 2) Cleansing of perineal area, 3) Adjusting clot nicolas after use; How many tasks does the patient perform WITHOUT assistance of the helper? Three tasks with steadying assistance from the helper TOILETING - SCORE: 4-MIN BLADDER MANAGEMENT: BLADDER MANAGEMENT - STEP 1: Does the patient control the bladder completely and intentionally without equipment or devices or med ications, and is always continent? No. BLADDER MANAGEMENT - STEP 2: Does the patient require the assistance of a helper? No, patient requires and independently uses an a ssistive device, such as a urinal, bedpan, bedside commode, catheter, absorbent pad, or collecting de vice BLADDER MANAGEMENT - SCORE: 6-GEO BOWEL MANAGEMENT: Activity did not occur on this shift BOWEL MANAGEMENT - SCORE: 7-IND TRANSFERS: BED, CHAIR, WHEELCHAIR: TRANSFERS: BED, CHAIR, WHEELCHAIR - STEP 1: Does the patient require assistance of a person or device, or need extra time with bed, chair, or whe elchair transfers? Yes. TRANSFERS: BED, CHAIR, WHEELCHAIR - STEP 2: Does the patient require the assistance of a helper? Yes. TRANSFERS: BED, CHAIR, WHEELCHAIR - STEP 3: How much assistance does the patient require from the helper? Steadying/guiding assistance TRANSFERS: BED, CHAIR, WHEELCHAIR - SCORE: 4-MIN TRANSFERS: TOILET: TRANSFERS: TOILET - STEP 1: Does the patient require the assistance of a person or device, or need extra time with toilet transfe rs? Yes. TRANSFERS: TOILET - STEP 2: Does the patient require the assistance of a helper? Yes. TRANSFERS: TOILET - STEP 3: How much assistance does the patient require from the helper? Only supervision, cuing, coaxing, OR he lp to set out transfer equipment or to lock brakes and/or lift foot rests TRANSFERS: TOILET - SCORE: 5-SUP TRANSFERS: SHOWER: Activity did not occur on this shift TRANSFERS: SHOWER - SCORE: 0-UNK TRANSFERS: TUB: Activity did not occur on this shift TRANSFERS: TUB - SCORE: 0-UNK LOCOMOTION: WALK: Activity did not occur on this shift LOCOMOTION: WALK - SCORE: 0-UNK LOCOMOTION: WHEELCHAIR: Activity did not occur on this shift LOCOMOTION: WHEELCHAIR - SCORE: 0-UNK COMPREHENSION: COMPREHENSION: TYPE: Both COMPREHENSION - STEP 1: Does the patient require help from a person or device, or need extra time to understand complex and a bstract ideas (such as current events, finances, discharge planning, medical issues, relationships, e tc)? No. COMPREHENSION - STEP 2: Does the patient need extra time, require an assistive device (such as glasses for visual comprehensi on or a hearing aid for auditory comprehension) or does s/he have mild difficulty understanding compl ex and abstract information? Yes. COMPREHENSION - SCORE: 6-GEO EXPRESSION EXPRESSION: TYPE: Both EXPRESSION - STEP 1: Does the patient require help from a person or device, or need extra time expressing complex and abst ract ideas (such as current events, finances, discharge planning, medical issues, relationships, etc) ? No. EXPRESSION - STEP 2: Does the patient need extra time, require an assistive device (such as augmentive communication syste m or a communication board), OR does s/he have mild difficulty expressing complex and abstract ideas (including mild dysarthria or mild word-find problems)? Yes. EXPRESSION - SCORE: 6-GEO SOCIAL INTERACTION: SOCIAL INTERACTION - STEP 1: Does the patient require a helper to interact with others in social and therapeutic situations? No. SOCIAL INTERACTION - STEP 2: Does the patient need extra time in social situations, OR does s/he interact with staff, other patien ts, and family members ONLY in structured environments, OR does s/he require medication for social in teraction? Yes, patient requires medication for social interaction SOCIAL INTERACTION - SCORE: 6-GEO PROBLEM SOLVING: PROBLEM SOLVING - STEP 1: Does the patient need help from a person or device, or need extra time to solve complex problems such as managing a checking account or confronting interpersonal problems? Yes. PROBLEM SOLVING - STEP 2: Does the patient solve basic routine problems half or more of the time? Yes. PROBLEM SOLVING - STEP 3: How often does the patient need help to solve basic routine problems? 10%-24% of the time PROBLEM SOLVING - SCORE: 4-MIN MEMORY: MEMORY - STEP 1: Does the patient need help from a person or device, or need extra time to remember frequently encount ered people, daily routines, and executing requests? No. MEMORY - STEP 2: Does the patient have slight difficulty recognizing frequently encountered people, daily routines, or executing requests without the need for repetition or using self-initiated or environmental cues to remember? Yes. MEMORY - SCORE: 6-GEO SIGNATURE PANEL: The following modified sections: Eating - Score, Grooming - Score, Dressing - Upper Body - Score, Bob ssing - Lower Body - Score, Toileting - Score, Bladder Management - Score, Bowel Management - Score, Transfers: Bed, Chair, Wheelchair - Score, Transfers: Toilet - Score, Transfers: Shower - Score, Odom sfers: Tub - Score, Locomotion: Walk - Score, Locomotion: Wheelchair - Score, Comprehension - Score, Expression - Score, Social Interaction - Score, Problem Solving - Score, Memory - Score were [electro nically] signed by Flakita Rojo CNA on ThuNov 11 2018 01:24:07 GMT-0500 (Central Daylight Time)
[2018-11-11 02:42] LABS: HBsAG Nonreactive (Nonreactive)
[2018-11-11 06:22] LABS: Absolute Lymphocytes (CBC) 0.7 K/uL (0.7-4.9); Basophils % 2.1 % (0-1.3); Hematocrit 28.6 % (39.6-49.0); MPV 7.9 fL (7.6-11.3); Monocytes % 14.9 % (3.3-12.3); RBC Red Blood Cell Count 3.79 M/uL (4.33-5.43)
[2018-11-11] MEDS: HYDROCODONE/APAP 5/325 MG TAB PO PRN (06:31)
[2018-11-11 06:51] LABS: Anisocytosis 3+; Blood Morphology Comment NOTED (NOT SEEN); Elliptocytes 1+; Hypochromasia 1+; Platelet Estimate ADEQ; Platelets, Giant PRESENT; Urine White Blood Cell Casts OK
[2018-11-11 06:52] LABS: Ovalocytes 1+
[2018-11-11 06:53] LABS: Potassium 3.4 mmol/L (3.5-5.1); Prealbumin 13.8 mg/dL (20-40)
[2018-11-11] MEDS: METOPROLOL TAR 50 MG TAB PO SCH (08:00)
[2018-11-11] MEDS: LACTULOSE 20 GM/30 ML UCUP PO SCH ×3 (08:19→20:23)
[2018-11-11] MEDS: SERTRALINE HCL 50 MG TAB PO SCH (08:20)
[2018-11-11] MEDS: APIXABAN 2.5 MG TABLET PO SCH ×2 (08:20→20:22)
[2018-11-11] MEDS: GABAPENTIN 300 MG CAP PO SCH ×2 (08:20→20:22)
[2018-11-11] MEDS: FERROUS SULFATE 325 MG TAB PO SCH ×2 (08:20→20:22)
[2018-11-11] MEDS: MIDODRINE HCL 5 MG TABLET PO SCH ×3 (08:21→20:22)
[2018-11-11] MEDS: ALLOPURINOL 100 MG TAB PO SCH (08:21)
[2018-11-11] MEDS: FE SULF/FA/VIT B COMP & C TAB PO SCH (08:21)
[2018-11-11] MEDS: FUROSEMIDE 40 MG TABLET PO SCH ×3 (09:00→16:49)
[2018-11-11] MEDS: PROMOD 30 ML DOSE PO SCH ×2 (10:08→20:22)
[2018-11-11] MEDS: COLLAGENASE 30 GM OINTMENT TOP SCH (10:09)
[2018-11-11] MEDS: ACETIC ACID 0.25% IRRIG IRR SCH (10:09)
--- NOTE | 2018-11-11 11:02 | FAST ---
SHIFT START DATE/TIME: 11/11/2018 07:00 (CDT) SHIFT END DATE/TIME: 11/11/2018 19:00 (CDT) NAME ANTWON MG DATE OF : 1945 DATE OF ADMISSION: 11/05/2018 22:49 (CDT) PHONE: AGE: 73 N# [id number] GENDER: Male ENCOUNTER PHYSICIAN: Dr. Giorgio Leon M.D. ADMISSION DIAGNOSIS: - Medically Complex Conditions 17 - Terminal Care (17.6) Acute renal Failure. EATING: EATING - STEP 1: Does the patient require the assistance of a person or device, or need extra time when eating? Yes. EATING - STEP 2: Does the patient require the assistance of a helper? No, patient only requires an assistive device, O R s/he takes more than reasonable time to eat, OR there is a safety concern, OR s/he requires modifie d food consistency EATING - SCORE: 6-GEO GROOMING: Comb/brush hair Wash, rinse, and dry face Wash, rinse, and dry hands GROOMING - STEP 1: Does the patient require the assistance of a person or device, or need extra time when grooming? No. GROOMING - SCORE: 7-IND BATHING: Activity did not occur on this shift BATHING - SCORE: 0-UNK DRESSING - UPPER BODY: Activity did not occur on this shift ARTICLES SCORE Total number of steps: 0 DRESSING - UPPER BODY - SCORE: 0-UNK DRESSING - LOWER BODY: Activity did not occur on this shift ARTICLES SCORE Total number of steps: 0 DRESSING - LOWER BODY - SCORE: 0-UNK TOILETING: TOILETING - STEP 1: Does the patient require the assistance of a person or device, or need extra time with toileting? Yes . TOILETING - STEP 2: Does the patient require the assistance of a helper? Yes. TOILETING - STEP 3: How much assistance does the patient require from the helper? Only supervision TOILETING - SCORE: 5-SUP BLADDER MANAGEMENT: Patient is on renal dialysis or peritoneal dialysis and no voiding activity BLADDER MANAGEMENT - SCORE: 7-IND BLADDER MANAGEMENT - FREQUENCY OF ACCIDENTS: BLADDER MANAGEMENT(FA) - STEP 1: How many accidents has the patient had during the current shift? 0 BOWEL MANAGEMENT: BOWEL MANAGEMENT - STEP 1: Does the patient control bowels completely and intentionally without equipment devices or medications AND is always continent? Yes. BOWEL MANAGEMENT - SCORE: 7-IND BOWEL MANAGEMENT - FREQUENCY OF ACCIDENTS: BOWEL MANAGEMENT(FA) - STEP 1: How many accidents has the patient had during the current shift? 0 TRANSFERS: BED, CHAIR, WHEELCHAIR: TRANSFERS: BED, CHAIR, WHEELCHAIR - STEP 1: Does the patient require assistance of a person or device, or need extra time with bed, chair, or whe elchair transfers? Yes. TRANSFERS: BED, CHAIR, WHEELCHAIR - STEP 2: Does the patient require the assistance of a helper? Yes. TRANSFERS: BED, CHAIR, WHEELCHAIR - STEP 3: How much assistance does the patient require from the helper? Only supervision TRANSFERS: BED, CHAIR, WHEELCHAIR - SCORE: 5-SUP TRANSFERS: TOILET: TRANSFERS: TOILET - STEP 1: Does the patient require the assistance of a person or device, or need extra time with toilet transfe rs? Yes. TRANSFERS: TOILET - STEP 2: Does the patient require the assistance of a helper? No. Patient only requires an assistive device cho ch as a grab bar or special seat, OR s/he takes more than reasonable time to perform toilet transfers , OR there is a safety concern when s/he performs toilet transfers. TRANSFERS: TOILET - SCORE: 6-GEO TRANSFERS: SHOWER: Activity did not occur on this shift TRANSFERS: SHOWER - SCORE: 0-UNK TRANSFERS: TUB: Activity did not occur on this shift TRANSFERS: TUB - SCORE: 0-UNK LOCOMOTION: WALK: Activity did not occur on this shift LOCOMOTION: WALK - SCORE: 0-UNK LOCOMOTION: WHEELCHAIR: Activity did not occur on this shift LOCOMOTION: WHEELCHAIR - SCORE: 0-UNK COMPREHENSION: COMPREHENSION: TYPE: Both COMPREHENSION - STEP 1: Does the patient require help from a person or device, or need extra time to understand complex and a bstract ideas (such as current events, finances, discharge planning, medical issues, relationships, e tc)? No. COMPREHENSION - STEP 2: Does the patient need extra time, require an assistive device (such as glasses for visual comprehensi on or a hearing aid for auditory comprehension) or does s/he have mild difficulty understanding compl ex and abstract information? Yes. COMPREHENSION - SCORE: 6-GEO EXPRESSION EXPRESSION: TYPE: Both EXPRESSION - STEP 1: Does the patient require help from a person or device, or need extra time expressing complex and abst ract ideas (such as current events, finances, discharge planning, medical issues, relationships, etc) ? Yes. EXPRESSION - STEP 2: Does the patient require help to express basic necessities or ideas (such as hunger, thirst, sleep, s afety, daily schedule, room location, or discomfort) half or more of the time? No. EXPRESSION - STEP 3: How often does the patient need help to express directions and conversation about basic needs? Less t pacheco 10% of the time EXPRESSION - SCORE: 5-SUP SOCIAL INTERACTION: SOCIAL INTERACTION - STEP 1: Does the patient require a helper to interact with others in social and therapeutic situations? No. SOCIAL INTERACTION - STEP 2: Does the patient need extra time in social situations, OR does s/he interact with staff, other patien ts, and family members ONLY in structured environments, OR does s/he require medication for social in teraction? Yes, patient needs extra time SOCIAL INTERACTION - SCORE: 6-GEO PROBLEM SOLVING: PROBLEM SOLVING - STEP 1: Does the patient need help from a person or device, or need extra time to solve complex problems such as managing a checking account or confronting interpersonal problems? No. PROBLEM SOLVING - STEP 2: Does the patient require extra time to make decisions or solve problems, OR does s/he have slight dif ficulty reading, initiating, or self-correcting in unfamiliar situations? Yes, patient needs extra ti me. PROBLEM SOLVING - SCORE: 6-GEO MEMORY: MEMORY - STEP 1: Does the patient need help from a person or device, or need extra time to remember frequently encount ered people, daily routines, and executing requests? No. MEMORY - STEP 2: Does the patient have slight difficulty recognizing frequently encountered people, daily routines, or executing requests without the need for repetition or using self-initiated or environmental cues to remember? Yes. MEMORY - SCORE: 6-GEO SIGNATURE PANEL: The following modified sections: Eating - Score, Grooming - Score, Bathing - Score, Dressing - Upper Body - Score, Dressing - Lower Body - Score, Toileting - Score, Bladder Management - Score, Bowel Man agement - Score, Transfers: Bed, Chair, Wheelchair - Score, Transfers: Toilet - Score, Transfers: Apryl wer - Score, Transfers: Tub - Score, Locomotion: Walk - Score, Locomotion: Wheelchair - Score, Compre hension - Score, Expression - Score, Social Interaction - Score, Problem Solving - Score, Memory - Sc ore were [electronically] signed by Aleah Sevilla C.N.A. on ThuNov 11 2018 11:00:51 T-0500 (Centra l Daylight Time)
[2018-11-11] MEDS: TRAMADOL HCL 50 MG TAB PO PRN ×2 (14:37→20:21)
--- NOTE | 2018-11-11 15:12 | FAST ---
ENCOUNTER DATE AND TIME: 11/11/2018 08:00 (CDT) NAME ANTWON GM DATE OF : 1945 DATE OF ADMISSION: 11/05/2018 22:49 (CDT) PHONE: AGE: 73 SSN# [id number] GENDER: Male ENCOUNTER PHYSICIAN: Dr. Giorgio Leon M.D. ADMISSION DIAGNOSIS: - Medically Complex Conditions 17 - Terminal Care (17.6) Acute renal Failure. EATING: Activity did not occur on this shift EATING - SCORE: 0-UNK GROOMING: Activity did not occur on this shift GROOMING - SCORE: 0-UNK BATHING: Activity did not occur on this shift BATHING - SCORE: 0-UNK DRESSING - UPPER BODY: Activity did not occur on this shift Patient is not dressing in public clothing ARTICLES SCORE Total number of steps: 0 DRESSING - UPPER BODY - SCORE: 0-UNK DRESSING - LOWER BODY: Activity did not occur on this shift Patient is not dressing in public clothing ARTICLES SCORE Total number of steps: 0 DRESSING - LOWER BODY - SCORE: 0-UNK TOILETING: Activity did not occur on this shift TOILETING - SCORE: 0-UNK BLADDER MANAGEMENT: Activity did not occur on this shift BLADDER MANAGEMENT - SCORE: 7-IND BOWEL MANAGEMENT: Activity did not occur on this shift BOWEL MANAGEMENT - SCORE: 7-IND TRANSFERS: BED, CHAIR, WHEELCHAIR: TRANSFERS: BED, CHAIR, WHEELCHAIR - STEP 1: Does the patient require assistance of a person or device, or need extra time with bed, chair, or whe elchair transfers? Yes. TRANSFERS: BED, CHAIR, WHEELCHAIR - STEP 2: Does the patient require the assistance of a helper? Yes. TRANSFERS: BED, CHAIR, WHEELCHAIR - STEP 3: How much assistance does the patient require from the helper? Only supervision TRANSFERS: BED, CHAIR, WHEELCHAIR - SCORE: 5-SUP TRANSFERS: TOILET: TRANSFERS: TOILET - STEP 1: Does the patient require the assistance of a person or device, or need extra time with toilet transfe rs? Yes. TRANSFERS: TOILET - STEP 2: Does the patient require the assistance of a helper? Yes. TRANSFERS: TOILET - STEP 3: How much assistance does the patient require from the helper? Only supervision, cuing, coaxing, OR he lp to set out transfer equipment or to lock brakes and/or lift foot rests TRANSFERS: TOILET - SCORE: 5-SUP TRANSFERS: SHOWER: Activity did not occur on this shift TRANSFERS: SHOWER - SCORE: 0-UNK TRANSFERS: TUB: Activity did not occur on this shift TRANSFERS: TUB - SCORE: 0-UNK LOCOMOTION: WALK: LOCOMOTION: WALK - STEP 1: Does the patient need help from a person or device, or need extra time to walk 150 feet? Yes. LOCOMOTION: WALK - STEP 2: How much assistance does the patient require to walk a minimum of 150 feet? Only supervision, cuing, or coaxing LOCOMOTION: WALK - SCORE: 5-SUP LOCOMOTION: WHEELCHAIR: LOCOMOTION: WHEELCHAIR - STEP 1: Does the patient need help to go 150 feet in a wheelchair? Yes. LOCOMOTION: WHEELCHAIR - STEP 2: How much assistance does the patient need from the helper? Only supervision, cuing, or coaxing LOCOMOTION: WHEELCHAIR - SCORE: 5-SUP LOCOMOTION: STAIRS: Activity did not occur on this shift LOCOMOTION: STAIRS - SCORE: 0-UNK COMPREHENSION: COMPREHENSION - SCORE: 0-UNK EXPRESSION EXPRESSION - SCORE: 0-UNK SOCIAL INTERACTION: SOCIAL INTERACTION - SCORE: 0-UNK PROBLEM SOLVING: PROBLEM SOLVING - SCORE: 0-UNK MEMORY: MEMORY - SCORE: 0-UNK SIGNATURE PANEL: The following modified sections: Transfers: Bed, Chair, Wheelchair - Score, Transfers: Toilet - Score , Locomotion: Walk - Score, Locomotion: Wheelchair - Score, Locomotion: Stairs - Score were [electron ricardo] signed by Cristin Mendoza PTA on ThuNov 11 2018 15:10:57 T-0500 (Central Daylight Time)
--- NOTE | 2018-11-11 17:10 | PN ---
Date of Progress Note: 11/11/2018 Subjective: The patient was admitted for rehabilitation, acute kidney injury. The patient's blood p ressure has been on the lower side. Objective: Vital Signs: Blood pressure is 104/60, pulse of 88. Chest: Clear to auscultation. Heart: S1, S2. Systolic murmur. Extremities: +2 edema. The patient had, according to him, been voiding very well, reported voiding 2-3 times. According to him, he filled almost more than 400 mL bottle. Laboratory Data: H and H 02/26.6. Sodium of 137, potassium 3.4, bicarb 26, BUN 42, creatinine 2.6. GFR 24. Uric acid of 4, calcium 8.1. Current Medications: The patient is on include, 1.Epogen. 2.IV iron. 3.Metoprolol. 4.Gabapentin. 5.Sertraline. 6.Hydrocodone. Assessment And Plan: 1.Acute kidney injury secondary to cardiorenal, nonoliguric, slightly on the wet side and showing so me recovery. I am going to go ahead and watch for the chemistry tomorrow to evaluate if the patient will need to be dialyzed or not as the patient is showing some recovery. 2.Hypertension, controlled. Currently, low blood pressure. Discontinue metoprolol. We will contin ue on the Lasix to establish better blood pressure control. 3.Edema. We will try to utilize the blood pressure for ultrafiltration and diuresis. 4.Deconditioning. Continue PT, OT. IBETH/ABI Voice ID: [id number] Report ID: [id number]
[2018-11-11] MEDS: METOPROLOL TAR 25 MG TAB PO SCH (20:00)
[2018-11-11] MEDS: DOXEPIN HCL 25 MG CAP PO SCH (20:22)
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
--- NOTE | 2018-11-11 22:21 | R.PN ---
ENCOUNTER DATE AND TIME: 11/11/2018 22:13 (CDT) NAME TAM MG DATE OF : 1945 DATE OF ADMISSION: 11/05/2018 22:49 (CDT) Acute renal FailureCHIEF COMPLAINT: Debility, acute renal failure. SUBJECTIVE: Pt denied any depression. Pt denied any Shortness of Breath. VITAL SIGNS Temperature: 97.6 F SBP/DBP: 118/71 Pulse: 80 Resp: 15 Therapeutic exercises and ADLs done with contact guard assistance. Hgb is 9.1, WBC 7.1, glucose 124 to 177, lactic acid 2.1 and procalcitonin 0.77. Chest x-ray: no acut e infiltrate. Ambulated 220' with contact guard assistance. MEDICATION ALLERGIES: No Known Drug Allergies (NKDA) ENVIRONMENTAL ALLERGIES: None Known - Substance Allergies None Known - Other Allergies None Known NURSING: - Shower allowing shower ACTIVITIES OOB only with supervision THERAPIES: - Dietary and Nutrition Adequate Nutrition. Nutritional Education. Nutritional Supplements. PHYSICAL EXAM - Gen Alert and awake Lying in bed No apparent distress Oriented to: person, time, and place - Skin Ulceration on right leg is dressed with good hemostasis. Abdominal wound have good hemostasis. Normacephalic - Eyes No abnormalities - ENMT No abnormalities - Neck No abnormalities - CVS RRR - Chest No abnormalities - Abd Mildly distended - GI + bowel sound Deferred - Does not produce much urine, on hemodialysis - Ext Moderate edema in both lower extremities. - MSK 4+/5 weakness in both lower extremities. - Neuro No focal deficits - Psych No abnormalities ASSESSMENT: Pt. is a 73 yo Right-handed white male.On 10/18/2018 he was admitted to [facility] with diagnosis Acute renal Failure.His impairment category is Medically Complex Conditions 17 - [facility] (17.6).Pre-morbidly, Pt. was independent/mod-I in Self-Care, Sphincter Control, Transfers Control, Locomotion, Communication, and Social Cognition; and he had good Sphincter Control.Currently , he has deficits of Transfers Control, Locomotion, Endurance, Balance, Safety Awareness, and Self-Ca re.Pt. is now referred to [facility] for acute in-patient rehabilitation in [place] to maximize patient's functional independence in activities of daily living, strength, ROM, and m obility.- Rehab Goal Patient has realistic goal of being discharged at assistance level 6-Joel to reside at Home with Fam dale/Relatives. MDM/PLAN: - Physical Therapy Gait dysfunction - to improve, our physical therapists will perform initial evaluation of pt's statu s upon admission and devise an individualized program for Gait Training, and Wheel Chair mobility Inability to transfer - to improve, our physical therapists will perform initial evaluation of pt's status upon admission and devise an individualized program for Bed mobility Need for home safety evaluation - to improve, our physical therapists will perform initial evaluatio n of pt's status upon admission and devise an individualized program for Home Evaluation Need in caregiver upon discharge - to improve, our physical therapists will perform initial evaluati on of pt's status upon admission and devise an individualized program for Caregiver Training Edema - to improve, our physical therapists will perform initial evaluation of pt's status upon admi ssion and devise an individualized program for Elevation Training, and Lymphedema Therapy New precaution - to improve, our physical therapists will perform initial evaluation of pt's status upon admission and devise an individualized program for Patient precaution education Having wound - to improve, our physical therapists will perform initial evaluation of pt's status up on admission and devise an individualized program for Wound Care Poor balance - to improve, our physical therapists will perform initial evaluation of pt's status up on admission and devise an individualized program for Balance Training Poor endurance - to improve, our physical therapists will perform initial evaluation of pt's status upon admission and devise an individualized program for Endurance Training Weakness - to improve, our physical therapists will perform initial evaluation of pt's status upon a dmission and devise an individualized program for Aquatic Therapy, Neuromuscular Reeducation, and Str engthening Achieving independence - to improve, our physical therapists will perform initial evaluation of pt's status upon admission and devise an individualized program for Community Reintegration Activities - Occupational Therapy ADL deficits - to improve, our occupation therapists will perform initial evaluation of pt's status upon admission and devise an individualized program for Bathing, Bed mobility, Community Reintegratio n, Cooking, Dressing, Eating, Fine Motor Skills, Grooming, Homemaking, Kitchen Mobility, Laundry, Pat ient Education, Safety Awareness, Splinting - Positioning, Transfers(Toilet, Tub, Shower), and Wheel Chair Management Need for lawn care technician - to improve, our occupation therapists will perform initial evaluation of pt's status upon admission and devise an individualized program for Caregiver Training Weakness - to improve, our occupation therapists will perform initial evaluation of pt's status upon admission and devise an individualized program for Aquatic Therapy, Balance, Endurance, UE ROM, and UE strengthening - Other See attached MAR (Medication Administration Record) Tam Mg.pdf - Diet Type Continue Regular - Diet - Liquid Texture Continue Regular - Tube Feed Continue N/A - Diet - Solid Texture Continue Regular - Shower allowing shower FUNCTIONAL STATUS: UPDATED AT WEEKLY TEAM CONFERENCE - Bladder Same accident frequency: 7-Ind - No accidents in the past 7 days - Bowel Same accident frequency: 7-Ind - No accidents in the past 7 days - Walking Same score based on distance walked: 2(50-149ft) - Wheelchair Same score based on distance traveled: 0(N/A) FUNCTIONAL STATUS: - Self-Care A. Eating Joel B. Grooming Joel C. Bathing sup D. Dressing - Upper sup E. Dressing - Lower sup F. Toileting sup - Sphincter Control G: Bladder control Ind H: Bowel control Ind - Transfers Control I. Bed/Chair/Wheelchair sup J. Toilet sup K. Tub/Shower ADNO - Locomotion L. Walk/Wheelchair (C) CGA L. Walk/Wheelchair (W) CGA M. Stairs ADNO - Communication N. Comprehension (B) Ind O. Expression (B) Ind - Social Cognition P. Social Interaction Ind Q. Problem Solving Ind R. Memory Ind - Endurance Fair - Balance Fair - Safety Awareness Fair [facility]RENT [facility]. DEFICITS: Transfers Control, Locomotion, Endurance, Balance, Safety Awareness, and Self-Care SIGNATURE PANEL: (CDT)
--- NOTE | 2018-11-12 01:31 | FAST ---
SHIFT START DATE/TIME: 11/11/2018 19:00 (CDT) SHIFT END DATE/TIME: 11/12/2018 07:00 (CDT) NAME ANTWON MG DATE OF : 1945 DATE OF ADMISSION: 11/05/2018 22:49 (CDT) PHONE: AGE: 73 N# [id number] GENDER: Male ENCOUNTER PHYSICIAN: Dr. Giorgio Leon M.D. ADMISSION DIAGNOSIS: - Medically Complex Conditions 17 - [facility] (17.6) Acute renal Failure. EATING: Activity did not occur on this shift EATING - SCORE: 0-UNK GROOMING: Oral care Wash, rinse, and dry hands GROOMING - STEP 1: Does the patient require the assistance of a person or device, or need extra time when grooming? Yes. GROOMING - STEP 2: Does the patient require the assistance of a helper? Yes. GROOMING - STEP 3: How much assistance does the patient require from the helper? Cuing, coaxing, instructions, or encour agement for completion of grooming GROOMING - SCORE: 5-SUP BATHING: Activity did not occur on this shift BATHING - SCORE: 0-UNK DRESSING - UPPER BODY: Patient is not dressing in public clothing ARTICLES SCORE Total number of steps: 0 DRESSING - UPPER BODY - SCORE: 0-UNK DRESSING - LOWER BODY: Patient is not dressing in public clothing ARTICLES SCORE Total number of steps: 0 DRESSING - LOWER BODY - SCORE: 0-UNK TOILETING: TOILETING - STEP 1: Does the patient require the assistance of a person or device, or need extra time with toileting? Yes . TOILETING - STEP 2: Does the patient require the assistance of a helper? Yes. TOILETING - STEP 3: How much assistance does the patient require from the helper? Hands-on assistance from the helper TOILETING - STEP 4: Of the 3 tasks: 1) Adjusting clothing prior to use, 2) Cleansing of perineal area, 3) Adjusting clot nicolas after use; How many tasks does the patient perform WITHOUT assistance of the helper? Two tasks TOILETING - SCORE: 3-MOD BLADDER MANAGEMENT: BLADDER MANAGEMENT - STEP 1: Does the patient control the bladder completely and intentionally without equipment or devices or med ications, and is always continent? No. BLADDER MANAGEMENT - STEP 2: Does the patient require the assistance of a helper? Yes. BLADDER MANAGEMENT - STEP 3: How much assistance does the patient require from the helper? Only supervision, stand-by, cuing, or c oaxing BLADDER MANAGEMENT - SCORE: 5-SUP BOWEL MANAGEMENT: BOWEL MANAGEMENT - STEP 1: Does the patient control bowels completely and intentionally without equipment devices or medications AND is always continent? No. BOWEL MANAGEMENT - STEP 2: Does the patient require the assistance of a helper? No, patient requires medication for control such as stool softeners, suppositories, laxatives, enemas, or OTC medications BOWEL MANAGEMENT - SCORE: 6-GEO TRANSFERS: BED, CHAIR, WHEELCHAIR: TRANSFERS: BED, CHAIR, WHEELCHAIR - STEP 1: Does the patient require assistance of a person or device, or need extra time with bed, chair, or whe elchair transfers? Yes. TRANSFERS: BED, CHAIR, WHEELCHAIR - STEP 2: Does the patient require the assistance of a helper? Yes. TRANSFERS: BED, CHAIR, WHEELCHAIR - STEP 3: How much assistance does the patient require from the helper? Lifting of the legs TRANSFERS: BED, CHAIR, WHEELCHAIR - STEP 4: How many legs does the patient require the helper to lift? both legs TRANSFERS: BED, CHAIR, WHEELCHAIR - SCORE: 3-MOD TRANSFERS: TOILET: TRANSFERS: TOILET - STEP 1: Does the patient require the assistance of a person or device, or need extra time with toilet transfe rs? Yes. TRANSFERS: TOILET - STEP 2: Does the patient require the assistance of a helper? Yes. TRANSFERS: TOILET - STEP 3: How much assistance does the patient require from the helper? Only supervision, cuing, coaxing, OR he lp to set out transfer equipment or to lock brakes and/or lift foot rests TRANSFERS: TOILET - SCORE: 5-SUP TRANSFERS: SHOWER: Activity did not occur on this shift TRANSFERS: SHOWER - SCORE: 0-UNK TRANSFERS: TUB: Activity did not occur on this shift TRANSFERS: TUB - SCORE: 0-UNK LOCOMOTION: WALK: Activity did not occur on this shift LOCOMOTION: WALK - SCORE: 0-UNK LOCOMOTION: WHEELCHAIR: Activity did not occur on this shift LOCOMOTION: WHEELCHAIR - SCORE: 0-UNK COMPREHENSION: COMPREHENSION: TYPE: Both COMPREHENSION - STEP 1: Does the patient require help from a person or device, or need extra time to understand complex and a bstract ideas (such as current events, finances, discharge planning, medical issues, relationships, e tc)? No. COMPREHENSION - STEP 2: Does the patient need extra time, require an assistive device (such as glasses for visual comprehensi on or a hearing aid for auditory comprehension) or does s/he have mild difficulty understanding compl ex and abstract information? Yes. COMPREHENSION - SCORE: 6-GEO EXPRESSION EXPRESSION: TYPE: Both EXPRESSION - STEP 1: Does the patient require help from a person or device, or need extra time expressing complex and abst ract ideas (such as current events, finances, discharge planning, medical issues, relationships, etc) ? No. EXPRESSION - STEP 2: Does the patient need extra time, require an assistive device (such as augmentive communication syste m or a communication board), OR does s/he have mild difficulty expressing complex and abstract ideas (including mild dysarthria or mild word-find problems)? Yes. EXPRESSION - SCORE: 6-GEO SOCIAL INTERACTION: SOCIAL INTERACTION - STEP 1: Does the patient require a helper to interact with others in social and therapeutic situations? No. SOCIAL INTERACTION - STEP 2: Does the patient need extra time in social situations, OR does s/he interact with staff, other patien ts, and family members ONLY in structured environments, OR does s/he require medication for social in teraction? Yes, patient requires medication for social interaction SOCIAL INTERACTION - SCORE: 6-GEO PROBLEM SOLVING: PROBLEM SOLVING - STEP 1: Does the patient need help from a person or device, or need extra time to solve complex problems such as managing a checking account or confronting interpersonal problems? Yes. PROBLEM SOLVING - STEP 2: Does the patient solve basic routine problems half or more of the time? Yes. PROBLEM SOLVING - STEP 3: How often does the patient need help to solve basic routine problems? 10%-24% of the time PROBLEM SOLVING - SCORE: 4-MIN MEMORY: MEMORY - STEP 1: Does the patient need help from a person or device, or need extra time to remember frequently encount ered people, daily routines, and executing requests? No. MEMORY - STEP 2: Does the patient have slight difficulty recognizing frequently encountered people, daily routines, or executing requests without the need for repetition or using self-initiated or environmental cues to remember? Yes. MEMORY - SCORE: 6-GEO SIGNATURE PANEL: The following modified sections: Eating - Score, Grooming - Score, Dressing - Upper Body - Score, Bob ssing - Lower Body - Score, Toileting - Score, Bladder Management - Score, Bowel Management - Score, Transfers: Bed, Chair, Wheelchair - Score, Transfers: Toilet - Score, Transfers: Shower - Score, Odom sfers: Tub - Score, Locomotion: Walk - Score, Locomotion: Wheelchair - Score, Comprehension - Score, Expression - Score, Social Interaction - Score, Problem Solving - Score, Memory - Score were [electro nically] signed by Flakita Rojo CNA on ThuNov 12 2018 01:30:13 GMT-0500 (Central Daylight Time)
[2018-11-12 06:12] LABS: Albumin 2.6 g/dL (3.4-5.0); Phosphorus 5.8 mg/dL (2.5-4.9); Potassium 4.1 mmol/L (3.5-5.1)
[2018-11-12] MEDS: TRAMADOL HCL 50 MG TAB PO PRN ×2 (06:21→23:06)
[2018-11-12] MEDS: ACETIC ACID 0.25% IRRIG IRR SCH (08:00)
[2018-11-12] MEDS: PROMOD 30 ML DOSE PO SCH ×2 (08:00→21:18)
[2018-11-12] MEDS: METOPROLOL TAR 25 MG TAB PO SCH (08:21)
[2018-11-12] MEDS: SERTRALINE HCL 50 MG TAB PO SCH (08:21)
[2018-11-12] MEDS: POTASSIUM CL SA 10 MEQ TAB PO SCH (08:21)
[2018-11-12] MEDS: LACTULOSE 20 GM/30 ML UCUP PO SCH ×3 (08:21→21:16)
[2018-11-12] MEDS: FE SULF/FA/VIT B COMP & C TAB PO SCH (08:21)
[2018-11-12] MEDS: FERROUS SULFATE 325 MG TAB PO SCH ×2 (08:21→21:17)
[2018-11-12] MEDS: ALLOPURINOL 100 MG TAB PO SCH (08:21)
[2018-11-12] MEDS: FUROSEMIDE 40 MG TABLET PO SCH ×2 (08:21→16:54)
[2018-11-12] MEDS: GABAPENTIN 300 MG CAP PO SCH ×2 (08:21→21:18)
[2018-11-12] MEDS: MIDODRINE HCL 5 MG TABLET PO SCH ×3 (08:21→21:17)
[2018-11-12] MEDS: APIXABAN 2.5 MG TABLET PO SCH ×2 (08:22→21:17)
--- NOTE | 2018-11-12 09:18 | P.RH.PN ---
Estimated Length of Stay: 15 Expected Discharge Date: 11/19/18 Discharge Disposition Plan: Home Family Support: Yes Skilled Nursing Goal: Mobility, Transfers, Self Care Vital Signs: Last Vital Signs Temp 96.8 F 11/11/18 21:34 Pulse 88 11/11/18 21:34 Resp 16 11/11/18 21:34 BP 118/71 11/11/18 21:34 Pulse Ox 94 11/11/18 21:34 Laboratory: Laboratory Last Values WBC 7.1 K/uL (4.3-10.9) D 11/11/18 05:34 RBC 3.79 M/uL (4.33-5.43) L 11/11/18 05:34 Hgb 9.0 g/dL (13.6-17.9) L 11/11/18 05:34 Hct 28.6 % (39.6-49.0) L 11/11/18 05:34 MCV 75.3 fL (80-100) L 11/11/18 05:34 MCH 23.7 pg (27.0-35.0) L 11/11/18 05:34 MCHC 31.5 g/dL (32.0-36.0) L 11/11/18 05:34 RDW 34.5 % (12.1-15.2) H 11/11/18 05:34 Plt Count 377 K/uL (152-406) 11/11/18 05:34 MPV 7.9 fL (7.6-11.3) D 11/11/18 05:34 Neutrophils % 65.0 % (41.7-73.7) 11/11/18 05:34 Lymphocytes % 10.0 % (15.3-44.8) L 11/11/18 05:34 Monocytes % 14.9 % (3.3-12.3) H 11/11/18 05:34 Eosinophils % 8.0 % (0-4.4) H 11/11/18 05:34 Basophils % 2.1 % (0-1.3) H 11/11/18 05:34 Absolute Neutrophils 4.6 K/uL (1.8-8.0) 11/11/18 05:34 Absolute Lymphocytes 0.7 K/uL (0.7-4.9) 11/11/18 05:34 Absolute Monocytes 1.1 K/uL (0.1-1.3) 11/11/18 05:34 Absolute Eosinophils 0.6 K/uL (0-0.5) H 11/11/18 05:34 Absolute Basophils 0.2 K/uL (0-0.5) 11/11/18 05:34 Giant Platelets Present 11/11/18 05:34 Hypochromasia 1+ 11/11/18 05:34 Anisocytosis 3+ 11/11/18 05:34 Microcytosis 1+ 11/11/18 05:34 Ovalocytes 1+ 11/11/18 05:34 Elliptocytes 1+ 11/11/18 05:34 Morphology Comment Noted (NOT SEEN) 11/11/18 05:34 Absolute Retic 0.11 M/uL (0.02-0.11) 11/06/18 23:34 Percent Retic 2.81 % (0.4-2.05) H 11/06/18 23:34 Sodium 135 mmol/L (136-145) L 11/12/18 05:41 Potassium 4.1 mmol/L (3.5-5.1) 11/12/18 05:41 Chloride 100 mmol/L (98-107) 11/12/18 05:41 Carbon Dioxide 26 mmol/L (21-32) 11/12/18 05:41 BUN 53 mg/dL (7-18) H 11/12/18 05:41 Creatinine 3.51 mg/dL (0.55-1.3) H 11/12/18 05:41 Estimated GFR 17 mL/min (=/>90) L 11/12/18 05:41 Glucose 126 mg/dL (74-106) H 11/12/18 05:41 POC Glucose 127 mg/dl (65-120) H 11/07/18 07:09 Lactic Acid 2.1 mmol/L (0.4-2.0) H 11/08/18 16:51 Uric Acid 4.0 mg/dL (3.5-7.2) 11/11/18 05:34 Calcium 8.1 mg/dL (8.5-10.1) L 11/12/18 05:41 Phosphorus 5.8 mg/dL (2.5-4.9) H 11/12/18 05:41 Magnesium 2.1 mg/dL (1.8-2.4) 11/06/18 05:59 Iron 25.0 ug/dL (65-175) L 11/06/18 23:34 TIBC 262 ug/dL (250-460) 11/06/18 23:34 Transferrin 187 mg/dL (200-360) L 11/06/18 23:34 Transferrin % Sat 9.5 % (20.0-50.0) L 11/06/18 23:34 Ferritin 111.0 ng/mL (26-388) 11/06/18 23:34 Total Bilirubin 1.0 mg/dL (0.2-1.0) 11/08/18 21:52 Direct Bilirubin 0.5 mg/dL (0-0.2) H 11/08/18 21:52 AST 45 U/L (15-37) H 11/08/18 21:52 ALT 63 U/L (12-78) 11/08/18 21:52 Alkaline Phosphatase 391 U/L (45-117) H 11/08/18 21:52 Serum Total Protein 6.8 g/dL (6.4-8.2) 11/08/18 21:52 Albumin 2.6 g/dL (3.4-5.0) L 11/12/18 05:41 Globulin 3.4 g/dL (2.3-3.5) 11/08/18 21:52 Albumin/Globulin Ratio 1.0 (1.1-1.8) L 11/08/18 21:52 Prealbumin 13.8 mg/dL (20-40) L 11/11/18 05:34 Vitamin B12 1211 pg/mL (193-986) H 11/06/18 23:34 Folate >1000 ng/mL RBC (>280) 11/06/18 23:34 Procalcitonin 0.77 ng/mL (<0.50) H 11/08/18 14:00 Urine Color Dk yellow 11/09/18 04:58 Urine Appearance Clear 11/09/18 04:58 Urine pH 5.0 (5.0-7.0) 11/09/18 04:58 Ur Specific [place] 1.020 (1.005-1.030) 11/09/18 04:58 Urine Ketones Trace (NEG) 11/09/18 04:58 Urine Blood Trace (NEG) H 11/09/18 04:58 Urine Nitrite Negative (NEG) 11/09/18 04:58 Urine Bilirubin Negative (NEG) 11/09/18 04:58 Urine Urobilinogen 0.2 mg/dL (0.2-1.0) 11/09/18 04:58 Ur Leukocyte Esterase Negative (NEG) 11/09/18 04:58 Urine RBC <5 /HPF (NONE SEEN) 11/09/18 04:58 Urine WBC <5 /HPF (<5) 11/09/18 04:58 Ur Squamous Epith Cells <5 /HPF (NONE SEEN) 11/09/18 04:58 Amorphous Sediment Trace /HPF (NONE SEEN) 11/09/18 04:58 Urine Bacteria <20 /HPF (NONE SEEN) 11/09/18 04:58 Hyaline Casts 0-5 /LPF (NONE SEEN) 11/09/18 04:58 Urine Culture Reflexed Not needed 11/09/18 04:58 Urine Glucose Negative (NEG) 11/09/18 04:58 Urine Total Protein Negative (NEG) 11/09/18 04:58 Hep Bs Antigen Nonreactive (Nonreactive) 11/08/18 07:00 Hep Bs Antibody Nonreactive (Nonreactive) 11/08/18 07:00 Hep B Core Total Ab Nonreactive (Nonreactive) 11/08/18 07:00 Hepatitis C Antibody Nonreactive (Nonreactive) 11/08/18 07:00 Hep C Ab Signal/Cutoff 0.02 ratio (<1.00) 11/08/18 07:00 Weight: 192 lb 6 oz Wound Present: Yes Closed Surgical Incision Present: No Negative Pressure Wound Therapy Present: No Physician Update: Labs reviewed and are stable. He has dialysis today. He is doing well with physical therapy. Walks 250' with standby assistance. He is walking some steps but has 15 steps at home. His stay will be extended. Medical Issues: DVT Prophylaxis - Eliquis 2.5mg BID PO Pain Issues: Ledger 5/325mg Q4H PRN PO Comment: Numerous bruises and abrasions/scabs all over body. Tattoo to GILDARDO. Functional Improvement Occupational Therapy: OTR. Pt can benifit with cont therapy to address pt's overall weakness in the UE's, pt endurance for adl and for functional tasks. Cont to increase pt's static/dynamic standing balance and cont to educate and train pt on energy conservation techniques and safety.Cont with the POC and the goals by the supervising OTR. 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 Please see the Rehabilitation Signature page for all necessary signatures.
--- NOTE | 2018-11-12 09:19 | P.PN ---
Subjective Date of Service: 11/12/18 Chief Complaint: WEAK, ULCER RIGHT LEG. Subjective: No new changes Pt with CHF and alcoholic Cirrhoosis, started on HD ~2months ago Today Stable VS no overnight events Cr trending up hwile off HD -ve balance by 1300ml HD today plan for discharge next week will monitor RFT over the weekend Might benefit from Paracentecis Physical Examination - Vital Signs Temperature: 96.8 F Blood Pressure: 118/71 Pulse: 88 Respirations: 16 Pulse Ox (%): 94 - Physical Exam General: In no apparent distress, Oriented x3 HEENT: Atraumatic Neck: Supple, Without JVD or thyroid abnormality Respiratory: Crackles/rales (Rt basal ralesa ) Cardiovascular: Edema (+2 edema ) Gastrointestinal: Normal bowel sounds, Distended, Ascites Integumentary: No rashes - Studies Laboratory Data (last 24 hrs) 11/12/18 05:41: Sodium 135 L, Potassium 4.1, BUN 53 H, Creatinine 3.51 H, Glucose 126 H, Phosphorus 5.8 H Microbiology Data (last 24 hrs): 11/10/18 12:00 Wound - Right Calf Gram Stain - Final 11/10/18 12:00 Wound - Right Calf Gram Stain - Final Medications List Reviewed: Yes Assessment And Plan - Current Problems (Diagnosis) (1) Hepatorenal failure Current Visit: Yes Status: Chronic - Plan PRUDENCIO cardiorenal Vs hepatorenal started on HD will cont HD today and monitor RFT over the weekend Cont lasix renal dose meds HTN Controlled on metoprolol Edema with asciticis Cirrhosis +/- CHF will cont lasix and dialysis for now Might benefit from paracentecis Foot ulcer cont wound care Anemia of chronic disease stable Cont VU and Po iron
--- NOTE | 2018-11-12 12:33 | FAST ---
ENCOUNTER DATE AND TIME: 11/12/2018 08:00 (CDT) NAME ANTWON MG DATE OF : 1945 DATE OF ADMISSION: 11/05/2018 22:49 (CDT) PHONE: AGE: 73 SSN# [id number] GENDER: Male ENCOUNTER PHYSICIAN: Dr. Giorgio Leon M.D. ADMISSION DIAGNOSIS: - Medically Complex Conditions 17 - Terminal Care (17.6) Acute renal Failure. EATING: Activity did not occur on this shift EATING - SCORE: 0-UNK GROOMING: Activity did not occur on this shift GROOMING - SCORE: 0-UNK BATHING: Activity did not occur on this shift BATHING - SCORE: 0-UNK DRESSING - UPPER BODY: Activity did not occur on this shift Patient is not dressing in public clothing ARTICLES SCORE Total number of steps: 0 DRESSING - UPPER BODY - SCORE: 0-UNK DRESSING - LOWER BODY: Activity did not occur on this shift Patient is not dressing in public clothing ARTICLES SCORE Total number of steps: 0 DRESSING - LOWER BODY - SCORE: 0-UNK TOILETING: Activity did not occur on this shift TOILETING - SCORE: 0-UNK BLADDER MANAGEMENT: Activity did not occur on this shift BLADDER MANAGEMENT - SCORE: 7-IND BOWEL MANAGEMENT: Activity did not occur on this shift BOWEL MANAGEMENT - SCORE: 7-IND TRANSFERS: BED, CHAIR, WHEELCHAIR: TRANSFERS: BED, CHAIR, WHEELCHAIR - STEP 1: Does the patient require assistance of a person or device, or need extra time with bed, chair, or whe elchair transfers? Yes. TRANSFERS: BED, CHAIR, WHEELCHAIR - STEP 2: Does the patient require the assistance of a helper? Yes. TRANSFERS: BED, CHAIR, WHEELCHAIR - STEP 3: How much assistance does the patient require from the helper? Only supervision TRANSFERS: BED, CHAIR, WHEELCHAIR - SCORE: 5-SUP TRANSFERS: TOILET: Activity did not occur on this shift TRANSFERS: TOILET - SCORE: 0-UNK TRANSFERS: SHOWER: Activity did not occur on this shift TRANSFERS: SHOWER - SCORE: 0-UNK TRANSFERS: TUB: Activity did not occur on this shift TRANSFERS: TUB - SCORE: 0-UNK LOCOMOTION: WALK: LOCOMOTION: WALK - STEP 1: Does the patient need help from a person or device, or need extra time to walk 150 feet? Yes. LOCOMOTION: WALK - STEP 2: How much assistance does the patient require to walk a minimum of 150 feet? Only supervision, cuing, or coaxing LOCOMOTION: WALK - SCORE: 5-SUP LOCOMOTION: WHEELCHAIR: LOCOMOTION: WHEELCHAIR - STEP 1: Does the patient need help to go 150 feet in a wheelchair? No. LOCOMOTION: WHEELCHAIR - SCORE: 6-GEO LOCOMOTION: STAIRS: LOCOMOTION: STAIRS - STEP 1: Does the patient need help to go up and down 12 to 14 stairs? Yes. LOCOMOTION: STAIRS - STEP 2: How much assistance does the patient need from the helper to go a minimum of 12 to 14 stairs? Only in cidental help such as contact guarding or steadying LOCOMOTION: STAIRS - SCORE: 4-MIN COMPREHENSION: COMPREHENSION - SCORE: 0-UNK EXPRESSION EXPRESSION - SCORE: 0-UNK SOCIAL INTERACTION: SOCIAL INTERACTION - SCORE: 0-UNK PROBLEM SOLVING: PROBLEM SOLVING - SCORE: 0-UNK MEMORY: MEMORY - SCORE: 0-UNK SIGNATURE PANEL: The following modified sections: Transfers: Bed, Chair, Wheelchair - Score, Transfers: Toilet - Score , Locomotion: Walk - Score, Locomotion: Wheelchair - Score, Locomotion: Stairs - Score were [electron ricardo] signed by Cristin Mendoza PTA on ThuNov 12 2018 12:32:31 GMT-0500 (Central Daylight Time)
--- NOTE | 2018-11-12 16:13 | FAST ---
ENCOUNTER DATE AND TIME: 11/08/2018 08:00 (CDT) NAME ANTWON MG DATE OF : 1945 DATE OF ADMISSION: 11/05/2018 22:49 (CDT) PHONE: AGE: 73 SSN# [id number] GENDER: Male ENCOUNTER PHYSICIAN: Dr. Giorgio Leon M.D. ADMISSION DIAGNOSIS: - Medically Complex Conditions 17 - Terminal Care (17.6) Acute renal Failure. EATING: Activity did not occur on this shift EATING - SCORE: 0-UNK GROOMING: Activity did not occur on this shift GROOMING - SCORE: 0-UNK BATHING: Activity did not occur on this shift BATHING - SCORE: 0-UNK DRESSING - UPPER BODY: Activity did not occur on this shift Patient is not dressing in public clothing ARTICLES SCORE Total number of steps: 0 DRESSING - UPPER BODY - SCORE: 0-UNK DRESSING - LOWER BODY: Activity did not occur on this shift Patient is not dressing in public clothing ARTICLES SCORE Total number of steps: 0 DRESSING - LOWER BODY - SCORE: 0-UNK TOILETING: Activity did not occur on this shift TOILETING - SCORE: 0-UNK BLADDER MANAGEMENT: Activity did not occur on this shift BLADDER MANAGEMENT - SCORE: 7-IND BOWEL MANAGEMENT: Activity did not occur on this shift BOWEL MANAGEMENT - SCORE: 7-IND TRANSFERS: BED, CHAIR, WHEELCHAIR: TRANSFERS: BED, CHAIR, WHEELCHAIR - STEP 1: Does the patient require assistance of a person or device, or need extra time with bed, chair, or whe elchair transfers? Yes. TRANSFERS: BED, CHAIR, WHEELCHAIR - STEP 2: Does the patient require the assistance of a helper? Yes. TRANSFERS: BED, CHAIR, WHEELCHAIR - STEP 3: How much assistance does the patient require from the helper? Steadying/guiding assistance TRANSFERS: BED, CHAIR, WHEELCHAIR - SCORE: 4-MIN TRANSFERS: TOILET: Activity did not occur on this shift TRANSFERS: TOILET - SCORE: 0-UNK TRANSFERS: SHOWER: Activity did not occur on this shift TRANSFERS: SHOWER - SCORE: 0-UNK TRANSFERS: TUB: Activity did not occur on this shift TRANSFERS: TUB - SCORE: 0-UNK LOCOMOTION: WALK: LOCOMOTION: WALK - STEP 1: Does the patient need help from a person or device, or need extra time to walk 150 feet? Yes. LOCOMOTION: WALK - STEP 2: How much assistance does the patient require to walk a minimum of 150 feet? Only supervision, cuing, or coaxing LOCOMOTION: WALK - SCORE: 5-SUP LOCOMOTION: WHEELCHAIR: LOCOMOTION: WHEELCHAIR - STEP 1: Does the patient need help to go 150 feet in a wheelchair? Yes. LOCOMOTION: WHEELCHAIR - STEP 2: How much assistance does the patient need from the helper? Only supervision, cuing, or coaxing LOCOMOTION: WHEELCHAIR - SCORE: 5-SUP LOCOMOTION: STAIRS: Activity did not occur on this shift LOCOMOTION: STAIRS - SCORE: 0-UNK COMPREHENSION: COMPREHENSION - SCORE: 0-UNK EXPRESSION EXPRESSION - SCORE: 0-UNK SOCIAL INTERACTION: SOCIAL INTERACTION - SCORE: 0-UNK PROBLEM SOLVING: PROBLEM SOLVING - SCORE: 0-UNK MEMORY: MEMORY - SCORE: 0-UNK SIGNATURE PANEL: The following modified sections: Transfers: Bed, Chair, Wheelchair - Score, Transfers: Toilet - Score , Locomotion: Walk - Score, Locomotion: Wheelchair - Score, Locomotion: Stairs - Score were [[email or web address] silva] signed by Gerald Chavez PTA on ThuNov 12 2018 16:12:32 GMT-0500 (Central Daylight Time)
--- NOTE | 2018-11-12 16:17 | FAST ---
SHIFT START DATE/TIME: 11/12/2018 07:00 (CDT) SHIFT END DATE/TIME: 11/12/2018 19:00 (CDT) NAME ANTWON MG DATE OF : 1945 DATE OF ADMISSION: 11/05/2018 22:49 (CDT) PHONE: AGE: 73 SSN# [id number] GENDER: Male ENCOUNTER PHYSICIAN: Dr. Giorgio Leon M.D. ADMISSION DIAGNOSIS: - Medically Complex Conditions 17 - Terminal Care (17.6) Acute renal Failure. EATING: EATING - STEP 1: Does the patient require the assistance of a person or device, or need extra time when eating? Yes. EATING - STEP 2: Does the patient require the assistance of a helper? No, patient only requires an assistive device, O R s/he takes more than reasonable time to eat, OR there is a safety concern, OR s/he requires modifie d food consistency EATING - SCORE: 6-GEO GROOMING: Comb/brush hair Oral care Wash, rinse, and dry face Wash, rinse, and dry hands GROOMING - STEP 1: Does the patient require the assistance of a person or device, or need extra time when grooming? Yes. GROOMING - STEP 2: Does the patient require the assistance of a helper? No. The patient only requires an assistive devic e, OR takes more than reasonable time to groom, OR there is a concern for safety as the patient groom s GROOMING - SCORE: 6-GEO BATHING: Activity did not occur on this shift BATHING - SCORE: 0-UNK DRESSING - UPPER BODY: Activity did not occur on this shift ARTICLES SCORE Total number of steps: 0 DRESSING - UPPER BODY - SCORE: 0-UNK DRESSING - LOWER BODY: Activity did not occur on this shift ARTICLES SCORE Total number of steps: 0 DRESSING - LOWER BODY - SCORE: 0-UNK TOILETING: TOILETING - STEP 1: Does the patient require the assistance of a person or device, or need extra time with toileting? No. TOILETING - SCORE: 7-IND BLADDER MANAGEMENT: BLADDER MANAGEMENT - STEP 1: Does the patient control the bladder completely and intentionally without equipment or devices or med ications, and is always continent? Yes. BLADDER MANAGEMENT - SCORE: 7-IND BLADDER MANAGEMENT - FREQUENCY OF ACCIDENTS: BLADDER MANAGEMENT(FA) - STEP 1: How many accidents has the patient had during the current shift? 0 BOWEL MANAGEMENT: BOWEL MANAGEMENT - STEP 1: Does the patient control bowels completely and intentionally without equipment devices or medications AND is always continent? Yes. BOWEL MANAGEMENT - SCORE: 7-IND BOWEL MANAGEMENT - FREQUENCY OF ACCIDENTS: BOWEL MANAGEMENT(FA) - STEP 1: How many accidents has the patient had during the current shift? 0 TRANSFERS: BED, CHAIR, WHEELCHAIR: TRANSFERS: BED, CHAIR, WHEELCHAIR - STEP 1: Does the patient require assistance of a person or device, or need extra time with bed, chair, or whe elchair transfers? Yes. TRANSFERS: BED, CHAIR, WHEELCHAIR - STEP 2: Does the patient require the assistance of a helper? Yes. TRANSFERS: BED, CHAIR, WHEELCHAIR - STEP 3: How much assistance does the patient require from the helper? Only supervision TRANSFERS: BED, CHAIR, WHEELCHAIR - SCORE: 5-SUP TRANSFERS: TOILET: TRANSFERS: TOILET - STEP 1: Does the patient require the assistance of a person or device, or need extra time with toilet transfe rs? Yes. TRANSFERS: TOILET - STEP 2: Does the patient require the assistance of a helper? No. Patient only requires an assistive device cho ch as a grab bar or special seat, OR s/he takes more than reasonable time to perform toilet transfers , OR there is a safety concern when s/he performs toilet transfers. TRANSFERS: TOILET - SCORE: 6-GEO TRANSFERS: SHOWER: Activity did not occur on this shift TRANSFERS: SHOWER - SCORE: 0-UNK TRANSFERS: TUB: Activity did not occur on this shift TRANSFERS: TUB - SCORE: 0-UNK LOCOMOTION: WALK: Activity did not occur on this shift LOCOMOTION: WALK - SCORE: 0-UNK LOCOMOTION: WHEELCHAIR: Activity did not occur on this shift LOCOMOTION: WHEELCHAIR - SCORE: 0-UNK COMPREHENSION: COMPREHENSION - SCORE: 0-UNK EXPRESSION EXPRESSION - SCORE: 0-UNK SOCIAL INTERACTION: SOCIAL INTERACTION - SCORE: 0-UNK PROBLEM SOLVING: PROBLEM SOLVING - SCORE: 0-UNK MEMORY: MEMORY - SCORE: 0-UNK SIGNATURE PANEL: The following modified sections: Eating - Score, Grooming - Score, Bathing - Score, Dressing - Upper Body - Score, Dressing - Lower Body - Score, Toileting - Score, Bladder Management - Score, Bowel Man agement - Score, Transfers: Bed, Chair, Wheelchair - Score, Transfers: Toilet - Score, Transfers: Apryl wer - Score, Transfers: Tub - Score, Locomotion: Walk - Score, Locomotion: Wheelchair - Score, Compre hension - Score, Expression - Score, Social Interaction - Score, Problem Solving - Score, Memory - Sc ore were [electronically] signed by Flako Milligan on ThuNov 12 2018 16:16:22 [facility]
--- NOTE | 2018-11-12 16:21 | FAST ---
ENCOUNTER DATE AND TIME: 11/09/2018 08:00 (CDT) NAME ANTWON MG DATE OF : 1945 DATE OF ADMISSION: 11/05/2018 22:49 (CDT) PHONE: AGE: 73 SSN# [id number] GENDER: Male ENCOUNTER PHYSICIAN: Dr. Giorgio Leon M.D. ADMISSION DIAGNOSIS: - Medically Complex Conditions 17 - Terminal Care (17.6) Acute renal Failure. EATING: Activity did not occur on this shift EATING - SCORE: 0-UNK GROOMING: Activity did not occur on this shift GROOMING - SCORE: 0-UNK BATHING: Activity did not occur on this shift BATHING - SCORE: 0-UNK DRESSING - UPPER BODY: Activity did not occur on this shift Patient is not dressing in public clothing ARTICLES SCORE Total number of steps: 0 DRESSING - UPPER BODY - SCORE: 0-UNK DRESSING - LOWER BODY: Activity did not occur on this shift Patient is not dressing in public clothing ARTICLES SCORE Total number of steps: 0 DRESSING - LOWER BODY - SCORE: 0-UNK TOILETING: Activity did not occur on this shift TOILETING - SCORE: 0-UNK BLADDER MANAGEMENT: Activity did not occur on this shift BLADDER MANAGEMENT - SCORE: 7-IND BOWEL MANAGEMENT: Activity did not occur on this shift BOWEL MANAGEMENT - SCORE: 7-IND TRANSFERS: BED, CHAIR, WHEELCHAIR: TRANSFERS: BED, CHAIR, WHEELCHAIR - STEP 1: Does the patient require assistance of a person or device, or need extra time with bed, chair, or whe elchair transfers? Yes. TRANSFERS: BED, CHAIR, WHEELCHAIR - STEP 2: Does the patient require the assistance of a helper? Yes. TRANSFERS: BED, CHAIR, WHEELCHAIR - STEP 3: How much assistance does the patient require from the helper? Steadying/guiding assistance TRANSFERS: BED, CHAIR, WHEELCHAIR - SCORE: 4-MIN TRANSFERS: TOILET: Activity did not occur on this shift TRANSFERS: TOILET - SCORE: 0-UNK TRANSFERS: SHOWER: Activity did not occur on this shift TRANSFERS: SHOWER - SCORE: 0-UNK TRANSFERS: TUB: Activity did not occur on this shift TRANSFERS: TUB - SCORE: 0-UNK LOCOMOTION: WALK: LOCOMOTION: WALK - STEP 1: Does the patient need help from a person or device, or need extra time to walk 150 feet? Yes. LOCOMOTION: WALK - STEP 2: How much assistance does the patient require to walk a minimum of 150 feet? Only supervision, cuing, or coaxing LOCOMOTION: WALK - SCORE: 5-SUP LOCOMOTION: WHEELCHAIR: LOCOMOTION: WHEELCHAIR - STEP 1: Does the patient need help to go 150 feet in a wheelchair? Yes. LOCOMOTION: WHEELCHAIR - STEP 2: How much assistance does the patient need from the helper? Only supervision, cuing, or coaxing LOCOMOTION: WHEELCHAIR - SCORE: 5-SUP LOCOMOTION: STAIRS: LOCOMOTION: STAIRS - STEP 1: Does the patient need help to go up and down 12 to 14 stairs? Yes. LOCOMOTION: STAIRS - STEP 2: How much assistance does the patient need from the helper to go a minimum of 12 to 14 stairs? Only in cidental help such as contact guarding or steadying LOCOMOTION: STAIRS - SCORE: 4-MIN COMPREHENSION: COMPREHENSION - SCORE: 0-UNK EXPRESSION EXPRESSION - SCORE: 0-UNK SOCIAL INTERACTION: SOCIAL INTERACTION - SCORE: 0-UNK PROBLEM SOLVING: PROBLEM SOLVING - SCORE: 0-UNK MEMORY: MEMORY - SCORE: 0-UNK SIGNATURE PANEL: The following modified sections: Transfers: Bed, Chair, Wheelchair - Score, Transfers: Toilet - Score , Locomotion: Walk - Score, Locomotion: Wheelchair - Score, Locomotion: Stairs - Score were [tamanna silva] signed by Gerald Chavez PTA on ThuNov 12 2018 16:19:58 GMT-0500 (Central Daylight Time)
[2018-11-12] MEDS: EPOETIN ALFA 10,000 UNIT/ML VIAL SQ SCH (18:51)
[2018-11-12] MEDS: CIPROFLOXACIN HCL 500 MG TAB PO SCH (21:16)
[2018-11-12] MEDS: DOXEPIN HCL 25 MG CAP PO SCH (21:17)
--- NOTE | 2018-11-13 02:17 | FAST ---
SHIFT START DATE/TIME: 11/12/2018 19:00 (CDT) SHIFT END DATE/TIME: 11/13/2018 07:00 (CDT) NAME ANTWON MG DATE OF : 1945 DATE OF ADMISSION: 11/05/2018 22:49 (CDT) PHONE: AGE: 73 N# [id number] GENDER: Male ENCOUNTER PHYSICIAN: Dr. Giorgio Leon M.D. ADMISSION DIAGNOSIS: - Medically Complex Conditions 17 - Terminal Care (17.6) Acute renal Failure. EATING: Activity did not occur on this shift EATING - SCORE: 0-UNK GROOMING: Activity did not occur on this shift GROOMING - SCORE: 0-UNK BATHING: Activity did not occur on this shift BATHING - SCORE: 0-UNK DRESSING - UPPER BODY: Patient is not dressing in public clothing ARTICLES SCORE Total number of steps: 0 DRESSING - UPPER BODY - SCORE: 0-UNK DRESSING - LOWER BODY: Patient is not dressing in public clothing ARTICLES SCORE Total number of steps: 0 DRESSING - LOWER BODY - SCORE: 0-UNK TOILETING: TOILETING - STEP 1: Does the patient require the assistance of a person or device, or need extra time with toileting? Yes . TOILETING - STEP 2: Does the patient require the assistance of a helper? Yes. TOILETING - STEP 3: How much assistance does the patient require from the helper? Hands-on assistance from the helper TOILETING - STEP 4: Of the 3 tasks: 1) Adjusting clothing prior to use, 2) Cleansing of perineal area, 3) Adjusting clot nicolas after use; How many tasks does the patient perform WITHOUT assistance of the helper? Two tasks TOILETING - SCORE: 3-MOD BLADDER MANAGEMENT: BLADDER MANAGEMENT - STEP 1: Does the patient control the bladder completely and intentionally without equipment or devices or med ications, and is always continent? No. BLADDER MANAGEMENT - STEP 2: Does the patient require the assistance of a helper? Yes. BLADDER MANAGEMENT - STEP 3: How much assistance does the patient require from the helper? Only set-up of equipment - such as plac ing it within reach of the patient or emptying a device - to maintain either satisfactory voiding pat tern or managing an external device, such as an absorbent pad, ileal device, or catheter BLADDER MANAGEMENT - SCORE: 5-SUP BOWEL MANAGEMENT: Activity did not occur on this shift BOWEL MANAGEMENT - SCORE: 7-IND TRANSFERS: BED, CHAIR, WHEELCHAIR: TRANSFERS: BED, CHAIR, WHEELCHAIR - STEP 1: Does the patient require assistance of a person or device, or need extra time with bed, chair, or whe elchair transfers? Yes. TRANSFERS: BED, CHAIR, WHEELCHAIR - STEP 2: Does the patient require the assistance of a helper? Yes. TRANSFERS: BED, CHAIR, WHEELCHAIR - STEP 3: How much assistance does the patient require from the helper? Lifting of the legs TRANSFERS: BED, CHAIR, WHEELCHAIR - STEP 4: How many legs does the patient require the helper to lift? both legs TRANSFERS: BED, CHAIR, WHEELCHAIR - SCORE: 3-MOD TRANSFERS: TOILET: TRANSFERS: TOILET - STEP 1: Does the patient require the assistance of a person or device, or need extra time with toilet transfe rs? Yes. TRANSFERS: TOILET - STEP 2: Does the patient require the assistance of a helper? Yes. TRANSFERS: TOILET - STEP 3: How much assistance does the patient require from the helper? Only supervision, cuing, coaxing, OR he lp to set out transfer equipment or to lock brakes and/or lift foot rests TRANSFERS: TOILET - SCORE: 5-SUP TRANSFERS: SHOWER: Activity did not occur on this shift TRANSFERS: SHOWER - SCORE: 0-UNK TRANSFERS: TUB: Activity did not occur on this shift TRANSFERS: TUB - SCORE: 0-UNK LOCOMOTION: WALK: Activity did not occur on this shift LOCOMOTION: WALK - SCORE: 0-UNK LOCOMOTION: WHEELCHAIR: Activity did not occur on this shift LOCOMOTION: WHEELCHAIR - SCORE: 0-UNK COMPREHENSION: COMPREHENSION: TYPE: Both COMPREHENSION - STEP 1: Does the patient require help from a person or device, or need extra time to understand complex and a bstract ideas (such as current events, finances, discharge planning, medical issues, relationships, e tc)? No. COMPREHENSION - STEP 2: Does the patient need extra time, require an assistive device (such as glasses for visual comprehensi on or a hearing aid for auditory comprehension) or does s/he have mild difficulty understanding compl ex and abstract information? Yes. COMPREHENSION - SCORE: 6-GEO EXPRESSION EXPRESSION: TYPE: Both EXPRESSION - STEP 1: Does the patient require help from a person or device, or need extra time expressing complex and abst ract ideas (such as current events, finances, discharge planning, medical issues, relationships, etc) ? No. EXPRESSION - STEP 2: Does the patient need extra time, require an assistive device (such as augmentive communication syste m or a communication board), OR does s/he have mild difficulty expressing complex and abstract ideas (including mild dysarthria or mild word-find problems)? Yes. EXPRESSION - SCORE: 6-GEO SOCIAL INTERACTION: SOCIAL INTERACTION - STEP 1: Does the patient require a helper to interact with others in social and therapeutic situations? No. SOCIAL INTERACTION - STEP 2: Does the patient need extra time in social situations, OR does s/he interact with staff, other patien ts, and family members ONLY in structured environments, OR does s/he require medication for social in teraction? Yes, patient needs extra time SOCIAL INTERACTION - SCORE: 6-GEO PROBLEM SOLVING: PROBLEM SOLVING - STEP 1: Does the patient need help from a person or device, or need extra time to solve complex problems such as managing a checking account or confronting interpersonal problems? Yes. PROBLEM SOLVING - STEP 2: Does the patient solve basic routine problems half or more of the time? Yes. PROBLEM SOLVING - STEP 3: How often does the patient need help to solve basic routine problems? 10%-24% of the time PROBLEM SOLVING - SCORE: 4-MIN MEMORY: MEMORY - STEP 1: Does the patient need help from a person or device, or need extra time to remember frequently encount ered people, daily routines, and executing requests? No. MEMORY - STEP 2: Does the patient have slight difficulty recognizing frequently encountered people, daily routines, or executing requests without the need for repetition or using self-initiated or environmental cues to remember? Yes. MEMORY - SCORE: 6-GEO
[2018-11-13 05:43] VITALS: BMI 28.7
[2018-11-13 07:02] LABS: Albumin 2.5 g/dL (3.4-5.0); Phosphorus 4.5 mg/dL (2.5-4.9); Potassium 3.7 mmol/L (3.5-5.1)
[2018-11-13] MEDS: ACETIC ACID 0.25% IRRIG IRR SCH (08:00)
[2018-11-13] MEDS: MIDODRINE HCL 5 MG TABLET PO SCH ×3 (08:18→20:46)
[2018-11-13] MEDS: GABAPENTIN 300 MG CAP PO SCH ×2 (08:19→20:46)
[2018-11-13] MEDS: FERROUS SULFATE 325 MG TAB PO SCH ×2 (08:19→19:14)
[2018-11-13] MEDS: FE SULF/FA/VIT B COMP & C TAB PO SCH (08:19)
[2018-11-13] MEDS: FUROSEMIDE 40 MG TABLET PO SCH (08:19)
[2018-11-13] MEDS: APIXABAN 2.5 MG TABLET PO SCH ×2 (08:19→19:14)
[2018-11-13] MEDS: POTASSIUM CL SA 10 MEQ TAB PO SCH (08:19)
[2018-11-13] MEDS: ALLOPURINOL 100 MG TAB PO SCH (08:19)
[2018-11-13] MEDS: CIPROFLOXACIN HCL 500 MG TAB PO SCH ×2 (08:20→19:14)
[2018-11-13] MEDS: PROMOD 30 ML DOSE PO SCH ×2 (08:20→19:12)
[2018-11-13] MEDS: SERTRALINE HCL 50 MG TAB PO SCH (08:20)
[2018-11-13] MEDS: LACTULOSE 20 GM/30 ML UCUP PO SCH ×3 (08:21→20:46)
[2018-11-13] MEDS: TRAMADOL HCL 50 MG TAB PO PRN ×2 (10:31→19:14)
--- NOTE | 2018-11-13 14:07 | FAST ---
SHIFT START DATE/TIME: 11/13/2018 07:00 (CDT) SHIFT END DATE/TIME: 11/13/2018 19:00 (CDT) NAME ANTWON MG DATE OF : 1945 DATE OF ADMISSION: 11/05/2018 22:49 (CDT) PHONE: AGE: 73 SSN# [id number] GENDER: Male ENCOUNTER PHYSICIAN: Dr. Giorgio Leon M.D. ADMISSION DIAGNOSIS: - Medically Complex Conditions 17 - Terminal Care (17.6) Acute renal Failure. EATING: EATING - STEP 1: Does the patient require the assistance of a person or device, or need extra time when eating? Yes. EATING - STEP 2: Does the patient require the assistance of a helper? No, patient only requires an assistive device, O R s/he takes more than reasonable time to eat, OR there is a safety concern, OR s/he requires modifie d food consistency EATING - SCORE: 6-GEO GROOMING: Comb/brush hair Oral care Wash, rinse, and dry face Wash, rinse, and dry hands GROOMING - STEP 1: Does the patient require the assistance of a person or device, or need extra time when grooming? No. GROOMING - SCORE: 7-IND BATHING: Activity did not occur on this shift BATHING - SCORE: 0-UNK DRESSING - UPPER BODY: Activity did not occur on this shift ARTICLES SCORE Total number of steps: 0 DRESSING - UPPER BODY - SCORE: 0-UNK DRESSING - LOWER BODY: Activity did not occur on this shift ARTICLES SCORE Total number of steps: 0 DRESSING - LOWER BODY - SCORE: 0-UNK TOILETING: TOILETING - STEP 1: Does the patient require the assistance of a person or device, or need extra time with toileting? Yes . TOILETING - STEP 2: Does the patient require the assistance of a helper? Yes. TOILETING - STEP 3: How much assistance does the patient require from the helper? Only supervision TOILETING - SCORE: 5-SUP BLADDER MANAGEMENT: BLADDER MANAGEMENT - STEP 1: Does the patient control the bladder completely and intentionally without equipment or devices or med ications, and is always continent? Yes. BLADDER MANAGEMENT - SCORE: 7-IND BLADDER MANAGEMENT - FREQUENCY OF ACCIDENTS: BLADDER MANAGEMENT(FA) - STEP 1: How many accidents has the patient had during the current shift? 0 BOWEL MANAGEMENT: BOWEL MANAGEMENT - STEP 1: Does the patient control bowels completely and intentionally without equipment devices or medications AND is always continent? Yes. BOWEL MANAGEMENT - SCORE: 7-IND BOWEL MANAGEMENT - FREQUENCY OF ACCIDENTS: BOWEL MANAGEMENT(FA) - STEP 1: How many accidents has the patient had during the current shift? 0 TRANSFERS: BED, CHAIR, WHEELCHAIR: TRANSFERS: BED, CHAIR, WHEELCHAIR - STEP 1: Does the patient require assistance of a person or device, or need extra time with bed, chair, or whe elchair transfers? Yes. TRANSFERS: BED, CHAIR, WHEELCHAIR - STEP 2: Does the patient require the assistance of a helper? Yes. TRANSFERS: BED, CHAIR, WHEELCHAIR - STEP 3: How much assistance does the patient require from the helper? Only supervision TRANSFERS: BED, CHAIR, WHEELCHAIR - SCORE: 5-SUP TRANSFERS: TOILET: TRANSFERS: TOILET - STEP 1: Does the patient require the assistance of a person or device, or need extra time with toilet transfe rs? Yes. TRANSFERS: TOILET - STEP 2: Does the patient require the assistance of a helper? Yes. TRANSFERS: TOILET - STEP 3: How much assistance does the patient require from the helper? Patient performs half or more of the tr ansferring tasks TRANSFERS: TOILET - STEP 4: Does the patient need only incidental help such as contact guard or steadying during toilet transfer? Yes. TRANSFERS: TOILET - SCORE: 4-MIN TRANSFERS: SHOWER: Activity did not occur on this shift TRANSFERS: SHOWER - SCORE: 0-UNK TRANSFERS: TUB: Activity did not occur on this shift TRANSFERS: TUB - SCORE: 0-UNK LOCOMOTION: WALK: Activity did not occur on this shift LOCOMOTION: WALK - SCORE: 0-UNK LOCOMOTION: WHEELCHAIR: LOCOMOTION: WHEELCHAIR - STEP 1: Does the patient need help to go 150 feet in a wheelchair? Yes. LOCOMOTION: WHEELCHAIR - STEP 2: How much assistance does the patient need from the helper? Only supervision, cuing, or coaxing LOCOMOTION: WHEELCHAIR - SCORE: 5-SUP COMPREHENSION: COMPREHENSION: TYPE: Both COMPREHENSION - STEP 1: Does the patient require help from a person or device, or need extra time to understand complex and a bstract ideas (such as current events, finances, discharge planning, medical issues, relationships, e tc)? Yes. COMPREHENSION - STEP 2: Does the patient require help to understand questions or statements about basic needs or ideas (such as hunger, thirst, sleep, safety, daily schedule, room location, or discomfort) half or more of the t tracie? No. COMPREHENSION - STEP 3: How often does the patient need help to understand directions and conversation about basic needs? Les s than 10% of the time COMPREHENSION - SCORE: 5-SUP EXPRESSION EXPRESSION: TYPE: Both EXPRESSION - STEP 1: Does the patient require help from a person or device, or need extra time expressing complex and abst ract ideas (such as current events, finances, discharge planning, medical issues, relationships, etc) ? No. EXPRESSION - STEP 2: Does the patient need extra time, require an assistive device (such as augmentive communication syste m or a communication board), OR does s/he have mild difficulty expressing complex and abstract ideas (including mild dysarthria or mild word-find problems)? Yes. EXPRESSION - SCORE: 6-GEO SOCIAL INTERACTION: SOCIAL INTERACTION - STEP 1: Does the patient require a helper to interact with others in social and therapeutic situations? No. SOCIAL INTERACTION - STEP 2: Does the patient need extra time in social situations, OR does s/he interact with staff, other patien ts, and family members ONLY in structured environments, OR does s/he require medication for social in teraction? Yes, patient needs extra time SOCIAL INTERACTION - SCORE: 6-GEO PROBLEM SOLVING: PROBLEM SOLVING - STEP 1: Does the patient need help from a person or device, or need extra time to solve complex problems such as managing a checking account or confronting interpersonal problems? No. PROBLEM SOLVING - STEP 2: Does the patient require extra time to make decisions or solve problems, OR does s/he have slight dif ficulty reading, initiating, or self-correcting in unfamiliar situations? Yes, patient needs extra ti me. PROBLEM SOLVING - SCORE: 6-GEO MEMORY: MEMORY - STEP 1: Does the patient need help from a person or device, or need extra time to remember frequently encount ered people, daily routines, and executing requests? No. MEMORY - STEP 2: Does the patient have slight difficulty recognizing frequently encountered people, daily routines, or executing requests without the need for repetition or using self-initiated or environmental cues to remember? Yes. MEMORY - SCORE: 6-GEO SIGNATURE PANEL: The following modified sections: Eating - Score, Grooming - Score, Bathing - Score, Dressing - Upper Body - Score, Dressing - Lower Body - Score, Toileting - Score, Bladder Management - Score, Bowel Man agement - Score, Transfers: Bed, Chair, Wheelchair - Score, Transfers: Toilet - Score, Transfers: Apryl wer - Score, Transfers: Tub - Score, Locomotion: Walk - Score, Locomotion: Wheelchair - Score, Compre hension - Score, Expression - Score, Social Interaction - Score, Problem Solving - Score, Memory - Sc ore were [electronically] signed by Aleah Sevilla C.N.A. on Sat Nov 13 2018 14:07:10 T-0500 (Centra l Daylight Time)
--- NOTE | 2018-11-13 15:08 | PN ---
Date of Progress Note: 11/13/2018 Subjective: The patient was admitted to the rehab after deconditioning for PT, OT. The patient had acute kidney injury secondary to cardiorenal, still have significant edema. The patient had dialysis yesterday, we managed to remove only 500. Physical Examination: Vital Signs: When I saw the patient today, blood pressure 105/70, pulse of 88. Chest: Clear to auscultation. Heart: S1, S2. Regular. Systolic murmur. Abdomen: Soft and nontender. Extremities: Bilateral edema, +2. Laboratory Data: WBC 7.1, H and H 9/28.6. Sodium of 135, potassium 3.7, bicarb 26, BUN 39, creatini ne 2.7 this is post dialysis. Yesterday predialysis creatinine 3.5, GFR of 17, calcium 8, phos 4.5. Current Medications: Include: 1.Ciprofloxacin 500 b.i.d. 2.Midodrine. 3.Eliquis 2.5 b.i.d. 4.Heparin. 5.Multivitamin. 6.Lopressor. 7.Allopurinol. 8.Tramadol. Assessment And Plan: 1.Acute kidney injury secondary to cardiorenal, still on the over volume side. I going to continue with the diuresis. Hold blood pressure medication to establish better blood pressure for the diuresi s. I am going to go ahead and increase his Lasix to 60 mg and we will follow up. 2.Urinary tract infection. Continue current antibiotic. I am going to adjust the dose of ciproflox acin. 3.Congestive heart failure, over volume. Continue diuresis as above. 4.Deconditioning. Continue PT OT. IBETH/ABI Voice ID: [id number] Report ID: [id number]
[2018-11-13] MEDS ORDERED: FUROSEMIDE 40 MG TABLET PO SCH (17:00)
[2018-11-13] MEDS: DOXEPIN HCL 25 MG CAP PO SCH (20:46)
--- NOTE | 2018-11-14 02:15 | FAST ---
SHIFT START DATE/TIME: 11/13/2018 19:00 (CDT) SHIFT END DATE/TIME: 11/14/2018 07:00 (CDT) NAME ANTWON MG DATE OF : 1945 DATE OF ADMISSION: 11/05/2018 22:49 (CDT) PHONE: AGE: 73 N# [id number] GENDER: Male ENCOUNTER PHYSICIAN: Dr. Giorgio Leon M.D. ADMISSION DIAGNOSIS: - Medically Complex Conditions 17 - Terminal Care (17.6) Acute renal Failure. EATING: Activity did not occur on this shift EATING - SCORE: 0-UNK GROOMING: Activity did not occur on this shift GROOMING - SCORE: 0-UNK BATHING: Activity did not occur on this shift BATHING - SCORE: 0-UNK DRESSING - UPPER BODY: Patient is not dressing in public clothing ARTICLES SCORE Total number of steps: 0 DRESSING - UPPER BODY - SCORE: 0-UNK DRESSING - LOWER BODY: Patient is not dressing in public clothing ARTICLES SCORE Total number of steps: 0 DRESSING - LOWER BODY - SCORE: 0-UNK TOILETING: TOILETING - STEP 1: Does the patient require the assistance of a person or device, or need extra time with toileting? Yes . TOILETING - STEP 2: Does the patient require the assistance of a helper? Yes. TOILETING - STEP 3: How much assistance does the patient require from the helper? Hands-on assistance from the helper TOILETING - STEP 4: Of the 3 tasks: 1) Adjusting clothing prior to use, 2) Cleansing of perineal area, 3) Adjusting clot nicolas after use; How many tasks does the patient perform WITHOUT assistance of the helper? Two tasks TOILETING - SCORE: 3-MOD BLADDER MANAGEMENT: BLADDER MANAGEMENT - STEP 1: Does the patient control the bladder completely and intentionally without equipment or devices or med ications, and is always continent? No. BLADDER MANAGEMENT - STEP 2: Does the patient require the assistance of a helper? Yes. BLADDER MANAGEMENT - STEP 3: How much assistance does the patient require from the helper? Only set-up of equipment - such as plac ing it within reach of the patient or emptying a device - to maintain either satisfactory voiding pat tern or managing an external device, such as an absorbent pad, ileal device, or catheter BLADDER MANAGEMENT - SCORE: 5-SUP BOWEL MANAGEMENT: Activity did not occur on this shift BOWEL MANAGEMENT - SCORE: 7-IND TRANSFERS: BED, CHAIR, WHEELCHAIR: TRANSFERS: BED, CHAIR, WHEELCHAIR - STEP 1: Does the patient require assistance of a person or device, or need extra time with bed, chair, or whe elchair transfers? Yes. TRANSFERS: BED, CHAIR, WHEELCHAIR - STEP 2: Does the patient require the assistance of a helper? Yes. TRANSFERS: BED, CHAIR, WHEELCHAIR - STEP 3: How much assistance does the patient require from the helper? Lifting of the legs TRANSFERS: BED, CHAIR, WHEELCHAIR - STEP 4: How many legs does the patient require the helper to lift? both legs TRANSFERS: BED, CHAIR, WHEELCHAIR - SCORE: 3-MOD TRANSFERS: TOILET: TRANSFERS: TOILET - STEP 1: Does the patient require the assistance of a person or device, or need extra time with toilet transfe rs? Yes. TRANSFERS: TOILET - STEP 2: Does the patient require the assistance of a helper? Yes. TRANSFERS: TOILET - STEP 3: How much assistance does the patient require from the helper? Only supervision, cuing, coaxing, OR he lp to set out transfer equipment or to lock brakes and/or lift foot rests TRANSFERS: TOILET - SCORE: 5-SUP TRANSFERS: SHOWER: Activity did not occur on this shift TRANSFERS: SHOWER - SCORE: 0-UNK TRANSFERS: TUB: Activity did not occur on this shift TRANSFERS: TUB - SCORE: 0-UNK LOCOMOTION: WALK: Activity did not occur on this shift LOCOMOTION: WALK - SCORE: 0-UNK LOCOMOTION: WHEELCHAIR: Activity did not occur on this shift LOCOMOTION: WHEELCHAIR - SCORE: 0-UNK COMPREHENSION: COMPREHENSION: TYPE: Both COMPREHENSION - STEP 1: Does the patient require help from a person or device, or need extra time to understand complex and a bstract ideas (such as current events, finances, discharge planning, medical issues, relationships, e tc)? No. COMPREHENSION - STEP 2: Does the patient need extra time, require an assistive device (such as glasses for visual comprehensi on or a hearing aid for auditory comprehension) or does s/he have mild difficulty understanding compl ex and abstract information? Yes. COMPREHENSION - SCORE: 6-GEO EXPRESSION EXPRESSION: TYPE: Both EXPRESSION - STEP 1: Does the patient require help from a person or device, or need extra time expressing complex and abst ract ideas (such as current events, finances, discharge planning, medical issues, relationships, etc) ? No. EXPRESSION - STEP 2: Does the patient need extra time, require an assistive device (such as augmentive communication syste m or a communication board), OR does s/he have mild difficulty expressing complex and abstract ideas (including mild dysarthria or mild word-find problems)? Yes. EXPRESSION - SCORE: 6-GEO SOCIAL INTERACTION: SOCIAL INTERACTION - STEP 1: Does the patient require a helper to interact with others in social and therapeutic situations? No. SOCIAL INTERACTION - STEP 2: Does the patient need extra time in social situations, OR does s/he interact with staff, other patien ts, and family members ONLY in structured environments, OR does s/he require medication for social in teraction? Yes, patient needs extra time SOCIAL INTERACTION - SCORE: 6-GEO PROBLEM SOLVING: PROBLEM SOLVING - STEP 1: Does the patient need help from a person or device, or need extra time to solve complex problems such as managing a checking account or confronting interpersonal problems? Yes. PROBLEM SOLVING - STEP 2: Does the patient solve basic routine problems half or more of the time? Yes. PROBLEM SOLVING - STEP 3: How often does the patient need help to solve basic routine problems? 10%-24% of the time PROBLEM SOLVING - SCORE: 4-MIN MEMORY: MEMORY - STEP 1: Does the patient need help from a person or device, or need extra time to remember frequently encount ered people, daily routines, and executing requests? Yes. MEMORY - STEP 2: How often does the patient need help to remember frequently encountered people, daily routines, and e xecuting requests? Less than 10% of the time MEMORY - SCORE: 5-SUP
[2018-11-14 06:01] LABS: Albumin 2.4 g/dL (3.4-5.0); Phosphorus 5.2 mg/dL (2.5-4.9); Potassium 4.5 mmol/L (3.5-5.1)
[2018-11-14 07:14] VITALS: BP 109/67; TEMP 96.8
[2018-11-14] MEDS ORDERED: PANTOPRAZOLE 40MG TABLET PO SCH (07:30)
[2018-11-14 07:57] LABS: Absolute Lymphocytes (CBC) 1.3 K/uL (0.7-4.9); Basophils % 1.4 % (0-1.3); Eosinophils % 5.2 % (0-4.4); Hematocrit 22.9 % (39.6-49.0); Lymphocytes % 11.8 % (15.3-44.8); MPV 7.9 fL (7.6-11.3); Monocytes % 11.1 % (3.3-12.3); RBC Red Blood Cell Count 2.92 M/uL (4.33-5.43)
[2018-11-14] MEDS: SERTRALINE HCL 50 MG TAB PO SCH (08:00)
[2018-11-14] MEDS: CIPROFLOXACIN HCL 500 MG TAB PO SCH (08:00)
[2018-11-14] MEDS: GABAPENTIN 300 MG CAP PO SCH (08:00)
[2018-11-14] MEDS: POTASSIUM CL SA 10 MEQ TAB PO SCH (08:00)
[2018-11-14] MEDS: ALLOPURINOL 100 MG TAB PO SCH (08:00)
[2018-11-14] MEDS: FE SULF/FA/VIT B COMP & C TAB PO SCH (08:00)
[2018-11-14] MEDS: FERROUS SULFATE 325 MG TAB PO SCH (08:00)
[2018-11-14] MEDS: PROMOD 30 ML DOSE PO SCH (08:00)
[2018-11-14] MEDS ORDERED: PANTOPRAZOLE INJ 80 MG in NA CHLORIDE 0.9% 250 ML IV SCH (09:00)
[2018-11-14 09:12] LABS: Hematocrit 18.8 % (39.6-49.0)
== END 2018-11-14 08:45 | disposition short-term general hospital (02) | DRG 291 ==
LOC: 5TH 22:49
PROVIDERS: ADMIT Psychiatry & Neurology Neurology with Special Qualifications in Child Neurology; ATTEND Psychiatry & Neurology Neurology with Special Qualifications in Child Neurology
PROC: 5A1D70Z Performance of Urinary Filtration, Intermittent, Less than 6 Hours Per Day (ICD-10-PCS; principal; 2018-11-08)
PROC: 5A1D70Z Performance of Urinary Filtration, Intermittent, Less than 6 Hours Per Day (ICD-10-PCS; 2018-11-10)
PROC: 5A1D70Z Performance of Urinary Filtration, Intermittent, Less than 6 Hours Per Day (ICD-10-PCS; 2018-11-12)
DX: I13.2 Hypertensive heart and chronic kidney disease with heart failure and with stage 5 chronic kidney disease, or end stage renal disease (principal); K76.7 Hepatorenal syndrome; N18.6 End stage renal disease; N17.9 Acute kidney failure, unspecified; N39.0 Urinary tract infection, site not specified; I25.10 Atherosclerotic heart disease of native coronary artery without angina pectoris; I48.91 Unspecified atrial fibrillation; I10 Essential (primary) hypertension; K70.30 Alcoholic cirrhosis of liver without ascites; R53.1 Weakness; D64.9 Anemia, unspecified; N25.0 Renal osteodystrophy; E88.09 Other disorders of plasma-protein metabolism, not elsewhere classified; S81.801A Unspecified open wound, right lower leg, initial encounter; E83.39 Other disorders of phosphorus metabolism; I50.9 Heart failure, unspecified; Z99.2 Dependence on renal dialysis
CPT/HCPCS: 36415; 71046; 80048; 80069; 80076; 81001; 82040; 82274; 82607; 82728; 82747; 82962; 83540; 83605; 83735; 84134; 84145; 84466; 84550; 85014; 85018; 85025; 85044; 86317; 86704; 86706; 86803; 87040; 87070; 87075; 87077; 87186; 87205; 87340; 90935; 92507; 92508; 92523; 93925; 93970; 97110; 97112; 97116; 97127; 97163; 97167; 97530; 97542; J1644; J3590; Q4081

== ENCOUNTER 2018-11-14 09:03 | Inpatient (IN) | payer OTHER, BC ==
--- OUTSIDE RECORDS SUMMARY | 2018-11-14 09:14 | XMS REPORT | Clinical Summary ---
:1945 Author Organization [facility] Address [address] [place] [address] Care Team Providers Name Role Phone Asked, [...] Health Maintenance Due Date Last Done Comments COLONOSCOPY SCREENING 1996 SHINGLES VACCINES (#1) 1996 65+ PNEUMOCOCCAL VACCINE (1 of 2 - PCV13) 2011 INFLUENZA VACCINE 12/30/2018 Results Not on fileafter 11/13/2017 Insurance Payer Benefit Plan / Subscriber ID Effective Dates Phone Address Type Group MEDICARE MEDICARE PART A xxxxxxxxxx 2011-Present [place], [place] Medicare AND B BCBS BCBS CHOICE xxxxxxxxxxxx 2013-Present PPO PPO/[employer] PPO Advance Directives Patient has advance care planning documents on file. For more information, please contact:[facility] [place] [address]
--- OUTSIDE RECORDS SUMMARY | 2018-11-14 09:15 | XMS REPORT | Clinical Summary ---
:1945 Author Organization [facility] Address [address] [place] [address] Care Team Providers Name Role Phone Darnell [...] past. 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 at present denies any chest pain but [...] 02/24/2018 Telephone Hepatology Katerina Pace, RN after 11/13/2017 Family History Medical History Relation Name Comments [...] Taken Blood Pressure 132/84 08/03/2018 12:16 PM NUMERICAL CONTROL DRILL PRESS OPERATOR Pulse 89 08/03/2018 12:16 PM NUMERICAL CONTROL DRILL PRESS OPERATOR Temperature 37.1 C (98.7 F) 08/03/2018 12:16 PM NUMERICAL CONTROL DRILL PRESS OPERATOR Respiratory Rate 20 08/03/2018 12:16 PM NUMERICAL CONTROL DRILL PRESS OPERATOR Oxygen Saturation 99% 08/03/2018 12:16 PM NUMERICAL CONTROL DRILL PRESS OPERATOR Inhaled Oxygen Concentration - - Weight 88.6 kg (195 lb 6.4 oz) 08/03/2018 8:18 AM NUMERICAL CONTROL DRILL PRESS OPERATOR Height - - Body Mass Index 28.86 08/03/2018 8:18 AM NUMERICAL CONTROL DRILL PRESS OPERATOR Plan of Treatment Not on file Procedures Procedure Name Priority Date/Time Associated Diagnosis Comments REPORT OF PROCEDURE - 08/06/2018 10:30 ENDOSCOPY SCAN AM NUMERICAL CONTROL DRILL PRESS OPERATOR RHYTHM STRIP - SCAN 08/06/2018 10:30 AM NUMERICAL CONTROL DRILL PRESS OPERATOR TRANSFUSION SERVICE 08/03/2018 6:05 REPORT - SCAN PM NUMERICAL CONTROL DRILL PRESS OPERATOR (CELLAVISION MANUAL Routine 08/03/2018 6:04 Results for this DIFF) AM NUMERICAL CONTROL DRILL PRESS OPERATOR procedure are in the results section. CBC W/PLT COUNT & Routine 08/03/2018 6:04 Results for this AUTO DIFFERENTIAL AM NUMERICAL CONTROL DRILL PRESS OPERATOR procedure are in the results section. B-TYPE NATRIURETIC Routine 08/03/2018 6:04 Results for this FACTOR (BNP) AM NUMERICAL CONTROL DRILL PRESS OPERATOR procedure are in the results section. CBC W/PLT COUNT & Routine 08/03/2018 6:04 Results for this AUTO DIFFERENTIAL AM NUMERICAL CONTROL DRILL PRESS OPERATOR procedure are in the results section. PHOSPHORUS Routine 08/03/2018 6:04 Results for this AM NUMERICAL CONTROL DRILL PRESS OPERATOR procedure are in the results section. MAGNESIUM Routine 08/03/2018 6:04 Results for this AM NUMERICAL CONTROL DRILL PRESS OPERATOR procedure are in the results section. COMPREHENSIVE Routine 08/03/2018 6:04 Results for this METABOLIC PANEL AM NUMERICAL CONTROL DRILL PRESS OPERATOR procedure are in the results section. CALCIUM, IONIZED Routine 08/03/2018 6:04 Results for this AM NUMERICAL CONTROL DRILL PRESS OPERATOR procedure are in the results section. XR CHEST 1 VIEW Routine 08/03/2018 12:39 Results for this PORTABLE/BEDSIDE AM NUMERICAL CONTROL DRILL PRESS OPERATOR procedure are in the results section. PREPARE LEUKO-REDUCED Routine 08/02/2018 11:54 Results for this RBC PM NUMERICAL CONTROL DRILL PRESS OPERATOR procedure are in the results section. TRANSFUSION SERVICE 08/02/2018 6:00 REPORT - SCAN PM NUMERICAL CONTROL DRILL PRESS OPERATOR REPORT OF PROCEDURE - 08/02/2018 4:51 ENDOSCOPY URL PM NUMERICAL CONTROL DRILL PRESS OPERATOR REPORT OF PROCEDURE - 08/02/2018 4:39 ENDOSCOPY URL PM NUMERICAL CONTROL DRILL PRESS OPERATOR COLONOSCOPY 08/02/2018 4:00 Gastrointestinal PM NUMERICAL CONTROL DRILL PRESS OPERATOR hemorrhage, unspecified gastrointestinal hemorrhage type UPPER ENDOSCOPY 08/02/2018 4:00 Gastrointestinal PM NUMERICAL CONTROL DRILL PRESS OPERATOR hemorrhage, unspecified gastrointestinal hemorrhage type BASIC METABOLIC PANEL Routine 08/02/2018 6:41 Results for this (7) AM NUMERICAL CONTROL DRILL PRESS OPERATOR procedure are in the results section. CBC (HEMOGRAM ONLY) Routine 08/02/2018 6:41 Results for this AM NUMERICAL CONTROL DRILL PRESS OPERATOR procedure are in the results section. POCT-GLUCOSE METER Routine 08/01/2018 9:16 Results for this PM NUMERICAL CONTROL DRILL PRESS OPERATOR procedure are in the results section. BASIC METABOLIC PANEL STAT 08/01/2018 6:50 Results for this (7) PM NUMERICAL CONTROL DRILL PRESS OPERATOR procedure are in the results section. TRANSFUSE Routine 08/01/2018 3:33 LEUKO-REDUCED RED PM NUMERICAL CONTROL DRILL PRESS OPERATOR BLOOD CELLS CREATININE, RANDOM Routine 08/01/2018 1:01 Results for this URINE PM NUMERICAL CONTROL DRILL PRESS OPERATOR procedure are in the results section. UREA NITROGEN, RANDOM Routine 08/01/2018 1:01 Results for this URINE PM NUMERICAL CONTROL DRILL PRESS OPERATOR procedure are in the results section. SODIUM, RANDOM URINE Routine 08/01/2018 1:01 Results for this PM NUMERICAL CONTROL DRILL PRESS OPERATOR procedure are in the results section. URINALYSIS W/ Routine 08/01/2018 1:01 Results for this MICROSCOPIC PM NUMERICAL CONTROL DRILL PRESS OPERATOR procedure are in the results section. CBC W/PLT COUNT & Routine 08/01/2018 6:04 Results for this AUTO DIFFERENTIAL AM NUMERICAL CONTROL DRILL PRESS OPERATOR procedure are in the results section. TYPE AND SCREEN, SURENDRA 08/01/2018 6:04 Results for this AUTOMATED AM NUMERICAL CONTROL DRILL PRESS OPERATOR procedure are in the results section. PT/APTT Routine 08/01/2018 6:04 Results for this AM NUMERICAL CONTROL DRILL PRESS OPERATOR procedure are in the results section. MAGNESIUM Routine 08/01/2018 6:04 Results for this AM NUMERICAL CONTROL DRILL PRESS OPERATOR procedure are in the results section. BASIC METABOLIC PANEL Routine 08/01/2018 6:04 Results for this (7) AM NUMERICAL CONTROL DRILL PRESS OPERATOR procedure are in the results section. CBC W/PLT COUNT & Routine 08/01/2018 6:04 Results for this AUTO DIFFERENTIAL AM NUMERICAL CONTROL DRILL PRESS OPERATOR procedure are in the results section. after 11/13/2017 Results EKG-SCANNED (08/06/2018 10:30 AM NUMERICAL CONTROL DRILL PRESS OPERATOR) Narrative Performed At RHYTHM STRIP - SCAN (08/06/2018 10:30 AM NUMERICAL CONTROL DRILL PRESS OPERATOR) Narrative Performed At TRANSFUSION SERVICE REPORT - SCAN (08/03/2018 6:05 PM NUMERICAL CONTROL DRILL PRESS OPERATOR)Only the most recent of2 resultswithin the time period is included. Narrative Performed At Manual Differential (08/03/2018 6:04 AM NUMERICAL CONTROL DRILL PRESS OPERATOR) % Neutros 82 % [facility] % Lymphs 5 % [facility] % Monos 6 % [facility] % Eos 6 % [facility] % Baso 1 % [facility] # Neutros 8.61 (H) 1.78 - 5.38 K/ul [facility] # Lymphs 0.53 (L) 1.32 - 3.57 K/ul [facility] # Monos 0.63 0.30 - 0.82 K/uL [facility] # Eos 0.63 (H) 0.04 - 0.54 K/uL [facility] # Baso 0.11 (H) 0.01 - 0.08 K/uL [facility] Total Counted 100 [facility] nRBC (manual) 1 (H) 0 - 0 /100 WBC [facility] WBC Morphology Normal [facility] Platelet Morphology Normal [facility] Polychromasia 1+ few [facility] Hypochromia 1+ few [facility] Anisocytosis 1+ few [facility] Microcytes 1+ few [facility] Poikilocytes 1+ few [facility] Elliptocytes 1+ few [facility] Ovalocytes 2+ moderate [facility] Tear Drop Cells 1+ few [facility] Artifact Present [facility] Platelet Conc Adequate [facility] Specimen Blood Narrative Performed At Received comment: [facility] User comments: Slide comments: Performing Organization Address City/State/Zipcode Phone Number [facility] [address] [place] [address] CENTER Calcium, Ionized (08/03/2018 6:04 AM NUMERICAL CONTROL DRILL PRESS OPERATOR) Calcium, Ion 1.10 (L) 1.12 - 1.27 mmol/L [facility] pH, Blood 7.35 [facility] Specimen Blood Performing Organization Address City/State/Zipcode Phone Number [address] [address] [phone] [place] CBC with platelet count + automated diff (08/03/2018 6:04 AM NUMERICAL CONTROL DRILL PRESS OPERATOR)Only the most recent of2 resultswithin the time period is included. WBC 10.5 3.5 - 10.5 K/L [facility] RBC 2.93 (L) 4.63 - 6.08 M/L [facility] Hemoglobin 7.5 (L) 13.7 - 17.5 GM/DL [facility] Hematocrit 25.7 (L) 40.1 - 51.0 % [facility] MCV 87.7 79.0 - 92.2 fL [facility] MCH 25.6 (L) 25.7 - 32.2 pg [facility] MCHC 29.2 (L) 32.3 - 36.5 GM/DL [facility] RDW 16.9 (H) 11.6 - 14.4 % [facility] Platelets 321 150 - 450 K/CU MM [facility] MPV 10.1 9.4 - 12.4 fL [facility] nRBC 0 0 - 0 /100 WBC [facility] Specimen Blood Performing Organization Address City/State/Zipcode Phone Number [facility] [address] [place] [address] CENTER Phosphorus (08/03/2018 6:04 AM NUMERICAL CONTROL DRILL PRESS OPERATOR) Phosphorus 4.3 2.3 - 4.7 mg/dL [facility] Specimen Blood Performing Organization Address City/State/Zipcode Phone Number [address] [address] [phone] CENTER B-type Natriuretic Factor (BNP) (08/03/2018 6:04 AM NUMERICAL CONTROL DRILL PRESS OPERATOR) BNP 646 (H) 0 - 100 pg/mL [facility] Specimen Blood Performing Organization Address City/State/Zipcode Phone Number [address] [address] CENTER Magnesium (08/03/2018 6:04 AM NUMERICAL CONTROL DRILL PRESS OPERATOR)Only the most recent of2 resultswithin the time period is included. Magnesium 1.7 1.6 - 2.6 mg/dL [facility] Specimen Blood Performing Organization Address City/[facility]/Zipcode Phone Number [address] [address] CENTER Comprehensive metabolic panel (08/03/2018 6:04 AM NUMERICAL CONTROL DRILL PRESS OPERATOR) Protein, Total 5.9 (L) 6.0 - 8.3 gm/dL [facility] Albumin 3.6 3.5 - 5.0 g/dL [facility] Alkaline Phosphatase 130 40 - 150 U/L [facility] Total Bilirubin 1.0 0.2 - 1.2 mg/dL [facility] Sodium 139 136 - 145 meq/L [facility] Potassium 4.5 3.5 - 5.1 meq/L [facility] Chloride 108 (H) 98 - 107 meq/L [facility] CO2 22 22 - 29 meq/L [facility] BUN 51 (H) 7 - 21 mg/dL [facility] Creatinine 1.76 (H) 0.57 - 1.25 mg/dL [facility] Glucose 91 70 - 105 mg/dL [facility] Calcium 9.3 8.4 - 10.2 mg/dL [facility] AST 12 5 - 34 U/L [facility] ALT 6 6 - 55 U/L [facility] EGFR 38Comment: ESTIMATED GFR mL/min/1.73 sq m [facility] IS NOT ACCURATE [facility] CREATININE CLEARANCE IN PREDICTING GLOMERULAR FILTRATION RATE. ESTIMATED GFR IS NOT APPLICABLE FOR DIALYSIS PATIENTS. Specimen Blood Performing Organization Address City/[facility]/Zipcode Phone Number [facility] [address] [place] [address] [phone] CENTER XR chest 1 view portable / bedside (08/03/2018 12:39 AM NUMERICAL CONTROL DRILL PRESS OPERATOR) Specimen Narrative Performed At FINAL REPORT XO Group INDICATION: edema COMPARISON: January 05, 2013 TECHNIQUE: Single frontal view of the chest. FINDINGS: Lungs and pleura: Clear lungs. No effusion. Heart and mediastinum: Unchanged cardiomegaly. Unremarkable mediastinal contours. Osseous structures: No acute abnormality. Other: None. IMPRESSION: No pulmonary edema. Signed: Guerline Zuleta MD Report Verified Date/Time:08/03/2018 00:54:17 Reading Location: [address] Neuro Reading Room Procedure Note Interface, External Ris In - 08/03/2018 12:56 AM NUMERICAL CONTROL DRILL PRESS OPERATOR FINAL REPORT INDICATION: edema COMPARISON: January 05, 2013 TECHNIQUE: Single frontal view of the chest. FINDINGS: Lungs and pleura: Clear lungs. No effusion. Heart and mediastinum: Unchanged cardiomegaly. Unremarkable mediastinal contours. Osseous structures: No acute abnormality. Other: None. IMPRESSION: No pulmonary edema. Signed: Guerline Zuleta MD Report Verified Date/Time: 08/03/2018 00:54:17 Reading Location: [address] Neuro Reading Room Performing Organization Address [facility]/Zipcode Phone Number [employer] Prepare Leuko-Red RBC (08/02/2018 11:54 PM NUMERICAL CONTROL DRILL PRESS OPERATOR) CROSSMATCH COMPATIBLE [facility] TX Unit ABO O Pos [facility] TX UNIT NUMBER [id number] [place] [place] Status TX_TIMEINCHART [facility] [place] Blood Bank Product RED BLOOD CELLS [employer] [place] PRODUCT CODE [id number] [place] [place] Specimen Other Performing Organization Address City/State/Zipcode Phone Number [employer] [place] REPORT OF PROCEDURE - ENDOSCOPY URL (08/02/2018 4:51 PM NUMERICAL CONTROL DRILL PRESS OPERATOR) Narrative Performed At REPORT OF PROCEDURE - ENDOSCOPY URL (08/02/2018 4:39 PM NUMERICAL CONTROL DRILL PRESS OPERATOR) Narrative Performed At CBC (Hemogram only) (08/02/2018 6:41 AM NUMERICAL CONTROL DRILL PRESS OPERATOR) WBC 10.6 (H) 3.5 - 10.5 K/L [facility] RBC 2.97 (L) 4.63 - 6.08 M/L [facility] Hemoglobin 7.9 (L) 13.7 - 17.5 GM/DL [facility] Hematocrit 25.7 (L) 40.1 - 51.0 % [facility] MCV 86.5 79.0 - 92.2 fL [facility] MCH 26.6 25.7 - 32.2 pg [facility] MCHC 30.7 (L) 32.3 - 36.5 GM/DL [facility] RDW 16.5 (H) 11.6 - 14.4 % [facility] Platelets 319 150 - 450 K/CU MM [facility] MPV 10.4 9.4 - 12.4 fL [facility] nRBC 1 (H) 0 - 0 /100 WBC [facility] Specimen Blood Performing Organization Address City/State/Zipcode Phone Number [facility] [address] [place] [address] [phone] CENTER Basic Metabolic Panel (08/02/2018 6:41 AM NUMERICAL CONTROL DRILL PRESS OPERATOR)Only the most recent of3 resultswithin the time period is included. Sodium 138 136 - 145 meq/L [facility] Potassium 4.8 3.5 - 5.1 meq/L [facility] Chloride 107 98 - 107 meq/L [facility] CO2 19 (L) 22 - 29 meq/L [facility] BUN 67 (H) 7 - 21 mg/dL [facility] Creatinine 2.06 (H) 0.57 - 1.25 mg/dL [facility] Glucose 110 (H) 70 - 105 mg/dL [facility] Calcium 9.5 8.4 - 10.2 mg/dL [facility] EGFR 32Comment: ESTIMATED GFR IS mL/min/1.73 sq m [facility] NOT ACCURATE CREATININE [facility] CLEARANCE IN PREDICTING GLOMERULAR FILTRATION RATE. ESTIMATED GFR IS NOT APPLICABLE FOR DIALYSIS PATIENTS. Specimen Blood Performing Organization Address City/[facility] Phone Number [address] [address] [phone] CENTER POC-Glucose meter (08/01/2018 9:16 PM NUMERICAL CONTROL DRILL PRESS OPERATOR) POC-Glucose Meter 158 (H)Comment: TESTED AT 70 - 110 mg/dL [address] [address] Specimen Blood Performing Organization Address City/[facility] Phone Number [address] [address] CENTER Transfuse Leuko-Red RBC (08/01/2018 3:33 PM NUMERICAL CONTROL DRILL PRESS OPERATOR)Only the most recent of2 resultswithin the time period is included.Urea Nitrogen, random urine (2018 1:01 PM NUMERICAL CONTROL DRILL PRESS OPERATOR) Urea Nitrogen, Ur 694 mg/dL [facility] Specimen Urine Narrative Performed At Reference Range: No Normals [facility] Performing Organization Address City/State/Zipcode Phone Number [address] [address] [place] Sodium, random urine (08/01/2018 1:01 PM NUMERICAL CONTROL DRILL PRESS OPERATOR) Sodium Urine 70 meq/L [facility] Specimen Urine Narrative Performed At Reference Range: No Normals [facility] Performing Organization Address City/[facility] [place] [address] [place] Creatinine, random urine (08/01/2018 1:01 PM NUMERICAL CONTROL DRILL PRESS OPERATOR) Creatinine, Ur 40.1 mg/dL [facility] Specimen Urine Narrative Performed At Reference Range: No Normals [facility] Performing Organization Address [facility] Phone Number [address] [address] [phone] [place] Urinalysis w/Microscopic (08/01/2018 1:01 PM NUMERICAL CONTROL DRILL PRESS OPERATOR) Color, UA Light Yellow [facility] Clarity, UA Clear [facility] Specific [place], UA 1.010 1.001 - 1.035 [facility] pH, UA 6.5 5.0 - 8.0 [facility] Protein, UA Negative Negative [facility] Glucose, UA Negative Negative [facility] Ketones, UA Negative Negative [facility] Bilirubin, UA Negative Negative [facility] Blood, UA Negative Negative [facility] Nitrite, UA Negative Negative [facility] Leukocytes, UA Negative Negative [facility] Urobilinogen, UA 0.2 0.2 - 1.0 mg/dL [facility] RBC, UA 0 /HPF [facility] WBC, UA 0 /HPF [facility] Specimen Source [facility] Specimen Urine Performing Organization Address [facility]/Zipcode Phone Number [facility] [address] [place], [place] [address] [phone] CENTER Type and screen, automated (08/01/2018 6:04 AM NUMERICAL CONTROL DRILL PRESS OPERATOR) ABO/RH AUTOMATED (BEAKER) O POSITIVE [facility] Ab Scrn NEGATIVE [facility] Specimen Blood Performing Organization Address [facility] Mex[facility] Phone Number [facility] [address] [place] [address] [phone] PT/aPTT (08/01/2018 6:04 AM NUMERICAL CONTROL DRILL PRESS OPERATOR) Protime 15.7 (H) 11.7 - 14.7 seconds [facility] INR 1.2 <=5.9 [facility] PTT 31.7 22.5 - 36.0 seconds [facility] Specimen Blood Narrative Performed At RECOMMENDED COUMADIN/WARFARIN INR THERAPY [facility] RANGES STANDARD DOSE: 2.0 - 3.0 Includes: PROPHYLAXIS for venous thrombosis, systemic embolization; TREATMENT for venous thrombosis and/or pulmonary embolus. HIGH RISK: Target INR is 2.5-3.5 for patients with mechanical heart valves. Performing Organization Address [facility] Phone Number [facility] [address] [place] [address] CENTER after 11/13/2017 Insurance Payer Benefit Plan / Subscriber ID Type Phone Address Group MEDICARE MEDICARE A B xxxxxxxxxxx Medicare BLUE CROSS/[place]UE [place] IN[place]MN[place] xxxxxxxxxxxx O [phone] [address] [place] [address] [phone] (Work) Advance Directives For more information, please contact:[place] [address] [place] [phone] Code Status Date Activated Date Inactivated Comments Full Code 08/01/2018 3:40 AM 08/03/2018 8:32 PM This code status was determined by: Patient Code ONE 01/11/2013 7:33 PM 01/13/2013 7:59 PM All possible means of support including;cardiac massage, mechanical ventilation, and defibrillation will be used to support life.
--- OUTSIDE RECORDS SUMMARY | 2018-11-14 09:16 | XMS REPORT ---
:1945 Author Organization [facility] Address [address] [place] [address] Care Team Providers Name Role Phone ARIA [...] Range Comments NEUTROPHILS - REL (CELLAVISION)(BEAKER) (test oxje=8115) 82 % LYMPHOCYTES - REL (CELLAVISION)(BEAKER) (test nahi=6221) 5 % MONOCYTES - REL (CELLAVISION)(BEAKER) (test tpqu=1999) 6 % EOSINOPHILS - REL (CELLAVISION)(BEAKER) (test abuo=2758) 6 % BASOPHILS - REL (CELLAVISION)(BEAKER) (test nsso=7188) 1 % NEUTROPHILS - ABS (CELLAVISION)(BEAKER) (test bjfj=9127) 8.61 K/ul 1.78-5.38 LYMPHOCYTES - ABS (CELLAVISION)(BEAKER) (test ozho=2358) 0.53 K/ul 1.32-3.57 MONOCYTES - ABS (CELLAVISION)(BEAKER) (test ujtx=9274) 0.63 K/uL 0.30-0.82 EOSINOPHILS - ABS (CELLAVISION)(BEAKER) (test mida=7669) 0.63 K/uL 0.04-0.54 BASOPHILS - ABS (CELLAVISION)(BEAKER) (test ghet=7995) 0.11 K/uL 0.01-0.08 TOTAL COUNTED (BEAKER) (test iwpk=8517) 100 MANUAL NRBC PER 100 CELLS (BEAKER) (test dolp=5737) 1 /100 WBC 0-0 WBC MORPHOLOGY (BEAKER) (test uyzd=208) Normal PLT MORPHOLOGY (BEAKER) (test fykg=700) Normal POLYCHROMATOPHILLIC RBCS(BEAKER) (test vxxj=355) 1+ few HYPOCHROMIA (BEAKER) (test khpu=604) 1+ few ANISOCYTOSIS (BEAKER) (test gwyi=133) 1+ few MICROCYTES (BEAKER) (test xlex=260) 1+ few POIKILOCYTES (BEAKER) (test fcwq=364) 1+ few ELLIPTOCYTES (BEAKER) (test ronv=134) 1+ few OVALOCYTES (BEAKER) (test sfwt=871) 2+ moderate TEAR DROP CELLS (BEAKER) (test cdhv=568) 1+ few ARTIFACT (CELLAVISION)(BEAKER) (test yztz=0407) Present PLATELET CONCENTRATION (CELLAVISION)(BEAKER) (test wjwl=5893) Adequate Received comment: User comments: Slide comments:CALCIUM, [id number] 07:12 :00 Test Item Value Reference Range Comments CALCIUM IONIZED (BEAKER) (test fydp=189) 1.10 mmol/L 1.12-1.27 PH, BLOOD (BEAKER) (test ksos=1382) 7.35 [id number] 06:59:00 Test Item Value Reference Range Comments PHOSPHORUS (BEAKER) (test iysy=941) 4.3 mg/dL 2.3-4.7 [id number] 06:59:00 Test Item Value Reference Range Comments MAGNESIUM (BEAKER) (test ajcl=628) 1.7 mg/dL 1.6-2.6 COMPREHENSIVE METABOLIC [id number] 06:59:00 Test Item Value Reference Range Comments TOTAL PROTEIN (BEAKER) 5.9 gm/dL 6.0-8.3 (test tydy=113) ALBUMIN (BEAKER) (test 3.6 g/dL 3.5-5.0 fhsc=5551) ALKALINE PHOSPHATASE 130 U/L 40-150 (BEAKER) (test enxc=306) BILIRUBIN TOTAL (BEAKER) 1.0 mg/dL 0.2-1.2 (test jugt=287) SODIUM (BEAKER) (test 139 meq/L 136-145 pcjx=437) POTASSIUM (BEAKER) (test 4.5 meq/L 3.5-5.1 jgmq=641) CHLORIDE (BEAKER) (test 108 meq/L 98-107 hgax=803) CO2 (BEAKER) (test 22 meq/L 22-29 mbst=028) BLOOD UREA NITROGEN 51 mg/dL 7-21 (BEAKER) (test szsn=291) CREATININE (BEAKER) (test 1.76 mg/dL 0.57-1.25 hmkw=768) GLUCOSE RANDOM (BEAKER) 91 mg/dL 70-105 (test mpek=403) CALCIUM (BEAKER) (test 9.3 mg/dL 8.4-10.2 wewr=409) AST (SGOT) (BEAKER) (test 12 U/L 5-34 qfct=153) ALT (SGPT) (BEAKER) (test 6 U/L 6-55 vief=202) EGFR (BEAKER) (test 38 mL/min/1.73 sq m ESTIMATED GFR IS NOT znmc=9701) ACCURATE CREATININE CLEARANCE IN PREDICTING GLOMERULAR FILTRATION RATE. ESTIMATED GFR IS NOT APPLICABLE FOR DIALYSIS PATIENTS. B-TYPE NATRIURETIC FACTOR (BNP)2018-08-03 06:47:00 Test Item Value Reference Range Comments B-TYPE NATRIURETIC PEPTIDE (BEAKER) (test 646 pg/mL 0-100 uvdu=639) CBC W/PLT COUNT & AUTO [id number] 06:32:00 Test Item Value Reference Range Comments WHITE BLOOD CELL COUNT (BEAKER) (test pipe=195) 10.5 K/ L 3.5-10.5 RED BLOOD CELL COUNT (BEAKER) (test uwzt=584) 2.93 M/ L 4.63-6.08 HEMOGLOBIN (BEAKER) (test auvs=941) 7.5 GM/DL 13.7-17.5 HEMATOCRIT (BEAKER) (test kfmp=994) 25.7 % 40.1-51.0 MEAN CORPUSCULAR VOLUME (BEAKER) (test vcbh=394) 87.7 fL 79.0-92.2 MEAN CORPUSCULAR HEMOGLOBIN (BEAKER) (test 25.6 pg 25.7-32.2 mpdx=169) MEAN CORPUSCULAR HEMOGLOBIN CONC (BEAKER) (test 29.2 GM/DL 32.3-36.5 xjxn=297) RED CELL DISTRIBUTION WIDTH (BEAKER) (test 16.9 % 11.6-14.4 sbym=600) PLATELET COUNT (BEAKER) (test papo=367) 321 K/CU MM 150-450 MEAN PLATELET VOLUME (BEAKER) (test zlfc=140) 10.1 fL 9.4-12.4 NUCLEATED RED BLOOD CELLS (BEAKER) (test 0 /100 WBC 0-0 vfda=928) RAD, CHEST, 1 VIEW, NON [id number] 00:54:00Reason for exam:->edemaShould this be performed at the bedside?->YesFINAL REPORT INDICATION: edema COMPARISON: January 05, 2013 TECHNIQUE: Single frontal view of the chest. FINDINGS: Lungs and pleura: Clear lungs. No effusion.Heart and mediastinum:Unchanged cardiomegaly. Unremarkable mediastinal contours.Osseous structures: No acute abnormality.Other: None. IMPRESSION: No pulmonary edema. Signed: Guerline Zuleta MDReport Verified Date/Time: 08/03/2018 00:54:17 Reading Location: [address] Neuro Reading Room BASIC METABOLIC [id number] 07:08:00 Test Item Value Reference Range Comments SODIUM (BEAKER) (test 138 meq/L 136-145 ypvc=667) POTASSIUM (BEAKER) (test 4.8 meq/L 3.5-5.1 gbej=104) CHLORIDE (BEAKER) (test 107 meq/L 98-107 hgmf=654) CO2 (BEAKER) (test 19 meq/L 22-29 blkq=146) BLOOD UREA NITROGEN 67 mg/dL 7-21 (BEAKER) (test vdaa=042) CREATININE (BEAKER) (test 2.06 mg/dL 0.57-1.25 nfzg=309) GLUCOSE RANDOM (BEAKER) 110 mg/dL 70-105 (test jeaq=168) CALCIUM (BEAKER) (test 9.5 mg/dL 8.4-10.2 ykyp=595) EGFR (BEAKER) (test 32 mL/min/1.73 sq m ESTIMATED GFR IS NOT tkbw=1411) ACCURATE CREATININE CLEARANCE IN PREDICTING GLOMERULAR FILTRATION RATE. ESTIMATED GFR IS NOT APPLICABLE FOR DIALYSIS PATIENTS. CBC (HEMOGRAM ONLY)2018-08-02 06:53:00 Test Item Value Reference Range Comments WHITE BLOOD CELL COUNT (BEAKER) (test tgib=846) 10.6 K/ L 3.5-10.5 RED BLOOD CELL COUNT (BEAKER) (test tuoq=464) 2.97 M/ L 4.63-6.08 HEMOGLOBIN (BEAKER) (test kznb=535) 7.9 GM/DL 13.7-17.5 HEMATOCRIT (BEAKER) (test vrsw=256) 25.7 % 40.1-51.0 MEAN CORPUSCULAR VOLUME (BEAKER) (test jpct=986) 86.5 fL 79.0-92.2 MEAN CORPUSCULAR HEMOGLOBIN (BEAKER) (test 26.6 pg 25.7-32.2 wiwd=228) MEAN CORPUSCULAR HEMOGLOBIN CONC (BEAKER) (test 30.7 GM/DL 32.3-36.5 fimw=387) RED CELL DISTRIBUTION WIDTH (BEAKER) (test 16.5 % 11.6-14.4 rikk=819) PLATELET COUNT (BEAKER) (test lwup=712) 319 K/CU MM 150-450 MEAN PLATELET VOLUME (BEAKER) (test fyeg=719) 10.4 fL 9.4-12.4 NUCLEATED RED BLOOD CELLS (BEAKER) (test 1 /100 WBC 0-0 aymu=900) POCT-GLUCOSE [id number] 21:37:00 Test Item Value Reference Range Comments POC-GLUCOSE METER (BEAKER) 158 mg/dL 70-110 TESTED AT [address] (test junk=2494) [facility] [address] BASIC METABOLIC [id number] 19:11:00 Test Item Value Reference Range Comments SODIUM (BEAKER) (test 135 meq/L 136-145 lswz=207) POTASSIUM (BEAKER) (test 4.8 meq/L 3.5-5.1 oqpz=606) CHLORIDE (BEAKER) (test 107 meq/L 98-107 xjmy=355) CO2 (BEAKER) (test 19 meq/L 22-29 luxd=741) BLOOD UREA NITROGEN 78 mg/dL 7-21 (BEAKER) (test crls=048) CREATININE (BEAKER) (test 2.20 mg/dL 0.57-1.25 bjgo=569) GLUCOSE RANDOM (BEAKER) 182 mg/dL 70-105 (test ptpf=191) CALCIUM (BEAKER) (test 9.3 mg/dL 8.4-10.2 nzav=776) EGFR (BEAKER) (test 30 mL/min/1.73 sq m ESTIMATED GFR IS NOT mekr=5306) ACCURATE CREATININE CLEARANCE IN PREDICTING GLOMERULAR FILTRATION RATE. ESTIMATED GFR IS NOT APPLICABLE FOR DIALYSIS PATIENTS. CREATININE, RANDOM [id number] 13:56:00 Test Item Value Reference Range Comments CREATININE URINE (BEAKER) (test prvu=331) 40.1 mg/dL Reference Range: No NormalsSODIUM, RANDOM [id number] 13:56:00 Test Item Value Reference Range Comments SODIUM URINE (BEAKER) (test sgza=351) 70 meq/L Reference Range: No NormalsUREA NITROGEN, RANDOM [id number] 13:56:00 Test Item Value Reference Range Comments UREA NITROGEN URINE (BEAKER) (test qkvn=557) 694 mg/dL Reference Range: No NormalsURINALYSIS W/ [id number] 13:55:00 Test Item Value Reference Range Comments COLOR (BEAKER) (test pqlb=817) Light Yellow CLARITY (BEAKER) (test sxsu=963) Clear SPECIFIC GRAVITY UA (BEAKER) (test dhmq=035) 1.010 1.001-1.035 PH UA (BEAKER) (test isfq=136) 6.5 5.0-8.0 PROTEIN UA (BEAKER) (test rpzy=060) Negative Negative GLUCOSE UA (BEAKER) (test lxue=648) Negative Negative KETONES UA (BEAKER) (test thar=565) Negative Negative BILIRUBIN UA (BEAKER) (test leaa=794) Negative Negative BLOOD UA (BEAKER) (test cyex=472) Negative Negative NITRITE UA (BEAKER) (test hxhi=994) Negative Negative LEUKOCYTE ESTERASE UA (BEAKER) (test zsku=180) Negative Negative UROBILINOGEN UA (BEAKER) (test dvjx=025) 0.2 mg/dL 0.2-1.0 RBC UA (BEAKER) (test fken=961) 0 /HPF WBC UA (BEAKER) (test gaoi=518) 0 /HPF SOURCE(BEAKER) (test pwwy=7220) CBC W/PLT COUNT & AUTO [id number] 07:31:00 Test Item Value Reference Range Comments WHITE BLOOD CELL COUNT (BEAKER) (test bxso=197) 11.1 K/ L 3.5-10.5 RED BLOOD CELL COUNT (BEAKER) (test hnsr=760) 2.63 M/ L 4.63-6.08 HEMOGLOBIN (BEAKER) (test ylwn=493) 6.8 GM/DL 13.7-17.5 HEMATOCRIT (BEAKER) (test djbv=698) 22.9 % 40.1-51.0 MEAN CORPUSCULAR VOLUME (BEAKER) (test vctt=298) 87.1 fL 79.0-92.2 MEAN CORPUSCULAR HEMOGLOBIN (BEAKER) (test 25.9 pg 25.7-32.2 hrgm=720) MEAN CORPUSCULAR HEMOGLOBIN CONC (BEAKER) (test 29.7 GM/DL 32.3-36.5 lrzb=954) RED CELL DISTRIBUTION WIDTH (BEAKER) (test 16.6 % 11.6-14.4 oqnv=565) PLATELET COUNT (BEAKER) (test dvhk=374) 302 K/CU MM 150-450 MEAN PLATELET VOLUME (BEAKER) (test aptl=032) 10.9 fL 9.4-12.4 NUCLEATED RED BLOOD CELLS (BEAKER) (test 1 /100 WBC 0-0 onxz=063) NEUTROPHILS RELATIVE PERCENT (BEAKER) (test 69 % jzec=883) LYMPHOCYTES RELATIVE PERCENT (BEAKER) (test 12 % cbtl=339) MONOCYTES RELATIVE PERCENT (BEAKER) (test 12 % pcvh=142) EOSINOPHILS RELATIVE PERCENT (BEAKER) (test 5 % zwbv=126) BASOPHILS RELATIVE PERCENT (BEAKER) (test 1 % ligi=025) NEUTROPHILS ABSOLUTE COUNT (BEAKER) (test 7.66 K/ L 1.78-5.38 apyn=668) LYMPHOCYTES ABSOLUTE COUNT (BEAKER) (test 1.32 K/ L 1.32-3.57 adhv=042) MONOCYTES ABSOLUTE COUNT (BEAKER) (test 1.32 K/ L 0.30-0.82 obfi=548) EOSINOPHILS ABSOLUTE COUNT (BEAKER) (test 0.52 K/ L 0.04-0.54 bbhl=245) BASOPHILS ABSOLUTE COUNT (BEAKER) (test 0.09 K/ L 0.01-0.08 rbhv=488) IMMATURE GRANULOCYTES-RELATIVE PERCENT (BEAKER) 1 % 0-1 (test ifxc=3655) BASIC METABOLIC [id number] 07:26:00 Test Item Value Reference Range Comments SODIUM (BEAKER) (test 136 meq/L 136-145 bjmo=501) POTASSIUM (BEAKER) (test 5.2 meq/L 3.5-5.1 pgia=659) CHLORIDE (BEAKER) (test 106 meq/L 98-107 zvdh=742) CO2 (BEAKER) (test 22 meq/L 22-29 euil=550) BLOOD UREA NITROGEN 93 mg/dL 7-21 (BEAKER) (test reit=303) CREATININE (BEAKER) (test 2.30 mg/dL 0.57-1.25 cngg=805) GLUCOSE RANDOM (BEAKER) 113 mg/dL 70-105 (test mhnm=976) CALCIUM (BEAKER) (test 9.2 mg/dL 8.4-10.2 ajzn=109) EGFR (BEAKER) (test 28 mL/min/1.73 sq m ESTIMATED GFR IS NOT rake=7559) ACCURATE CREATININE CLEARANCE IN PREDICTING GLOMERULAR FILTRATION RATE. ESTIMATED GFR IS NOT APPLICABLE FOR DIALYSIS PATIENTS. [id number] 07:25:00 Test Item Value Reference Range Comments MAGNESIUM (BEAKER) (test galh=929) 2.3 mg/dL 1.6-2.6 [id number] 07:06:00 Test Item Value Reference Range Comments PROTIME (BEAKER) (test ofsz=775) 15.7 seconds 11.7-14.7 INR (BEAKER) (test next=201) 1.2 <=5.9 PARTIAL THROMBOPLASTIN TIME (BEAKER) (test 31.7 seconds 22.5-36.0 pymr=489) RECOMMENDED COUMADIN/WARFARIN INR THERAPY RANGESSTANDARD DOSE: 2.0 - 3.0 Includes: PROPHYLAXIS forvenous thrombosis, systemic embolization; TREATMENT for venous thrombosis and/or pulmonary embolus.HIGH RISK: Target INR is 2.5-3.5 for patients with mechanical heart valves.
[2018-11-14] MEDS ORDERED: TRAMADOL HCL 50 MG TAB PO PRN (09:22)
[2018-11-14 10:00] LABS: Protime INR 1.31
[2018-11-14] MEDS ORDERED: PANTOPRAZOLE INJ 80 MG in NA CHLORIDE 0.9% 250 ML IV SCH (10:00)
[2018-11-14] MEDS ORDERED: NA CHLORIDE 0.9% 250 ML ONE (10:02)
--- NOTE | 2018-11-14 10:18 | P.HP ---
Certification for Inpatient Patient admitted to: Inpatient With expected LOS: >2 Midnights Practitioner: I am a practitioner with admitting privileges, knowledge of patient current condition, hospital course, and medical plan of care. Services: Services provided to patient in accordance with Admission requirements found in Title 42 Section 412.3 of the Code of Federal Regulations Patient History Date of Service: 11/14/18 Primary Care Provider: Dr. Harrison Reason for admission: GI bleed History of Present Illness: Patient is a 73-year-old male with past medical history of hypertension liver cirrhosis chronic kidney disease now on dialysis who was in rehab under Dr. Leon's service who is being transferred to the ICU for acute GI bleed. Hospitalist service was contacted by ice house supervisor for further orders. Patient has multiple GI bleed with melanotic stools has had his Eliquis dose yesterday. Patient is currently undergoing dialysis since his last hospitalization. Patient reports abdominal discomfort. No nausea or vomiting. Patient's symptoms are constant moderate progressively worsening. When seen in the ICU he was awake alert oriented. Patient somewhat tachycardic hypotensive. Blood has begun to be transfused. There is no GI coverage currently therefore patient will need to be transfer to higher level of care. Patient was informed Allergies No Known Allergies Allergy (Verified 11/06/18 11:17) Home Medications: Allopurinol 1 tab PO DAILY 07/21/18 Folic Acid 1 tab PO DAILY 07/21/18 Metoprolol Tartrate 1 tab PO BID 07/21/18 Torsemide [Demadex*] 1 tab PO DAILY 07/21/18 Trazodone [Desyrel*] 1 tab PO DAILY PRN 07/21/18 Clobetasol Propionate/Emoll [Clobetasol Emollient 0.05% Crm] 15 gm TP DAILY 01/17 Furosemide 80 mg PO DAILY 11/06/18 Isosorbide Mononitrate [Isosorbide Mononitrate ER] 30 mg PO DAILY 11/06/18 Ketoconazole 120 ml TP EVERY 3RD DAY 11/06/18 Lactulose [Cephulac] 20 gm PO TID 11/06/18 Levocetirizine Dihydrochloride [Allergy Relief] 5 mg PO DAILY 11/06/18 Midodrine HCl 10 mg PO TID 11/06/18 Simvastatin 20 mg PO DAILY 11/06/18 - Past Medical/Surgical History Diabetic: No -: HTN -: HISTORY OF [place] -: HISTORY OF CAD WITH STENTS -: Liver cirrhosis -: HEART STENTS -: R. foot sx - screws in big toe - Family History Family History: Reviewed- Non-Contributory - Social History Smoking Status: Current every day smoker Alcohol use: Yes CD- Drugs: No Caffeine use: Yes Review of Systems 10-point ROS is otherwise unremarkable Gastrointestinal: As per HPI Physical Examination - Vital Signs Temperature: 96.8 F Blood Pressure: 109/67 Pulse: 102 Respirations: 16 Pulse Ox (%): 97 - Physical Exam General: Alert, Oriented x3, Mild distress HEENT: Atraumatic, PERRLA, Other (Dry mucous membranes), EOMI, Sclerae nonicteric Neck: Supple, 2+ carotid pulse no bruit Respiratory: Diminished, Other (No use of accessory muscles no wheezing or stridor) Cardiovascular: Normal S1 S2, Edema, Irregular heart rate/rhythm Gastrointestinal: Normal bowel sounds, No rebound, No guarding, Distended, Tenderness Musculoskeletal: No clubbing, No tenderness Integumentary: No rashes, No erythema Neurological: Normal speech, Normal strength at 5/5 x4 extr, Normal tone, Normal affect Other Physical/Emotional Findings: Psych mood is okay. Affect is full insight and judgment are fair - Studies Laboratory Data (last 24 hrs) 11/14/18 09:36: PT 15.3 H, INR 1.31 Assessment and Plan - Problems (Diagnosis) (1) GI bleed Current Visit: Yes Status: Acute Qualifiers: GI bleed type/associated pathology: anorectal hemorrhage Qualified Code(s) : K62.5 - Hemorrhage of anus and rectum (2) Acute blood loss anemia Current Visit: Yes Status: Acute (3) Chronic kidney disease Current Visit: Yes Status: Acute Qualifiers: Chronic kidney disease stage: on chronic dialysis Qualified Code(s): N18.6 - End stage renal disease; Z99.2 - Dependence on renal dialysis (4) Hypotension Current Visit: Yes Status: Acute Qualifiers: Hypotension type: other hypotension type Qualified Code(s): I95.89 - Other hypotension (5) Chronic anticoagulation Current Visit: Yes Status: Acute (6) History of IL (myocardial infarction) Current Visit: No Status: Acute (7) History of heart artery stent Current Visit: No Status: Acute (8) Cirrhosis, alcoholic Current Visit: No Status: Chronic Qualifiers: Ascites presence: with ascites Qualified Code(s): K70.31 - Alcoholic cirrhosis of liver with ascites - Plan Transfer patient to ICU Transfuse 2 units of PRBCs and 2 units of FFP Hold Eliquis Protonix drip Obtain INR and H&H 20 mg of IV Lasix after each unit of PRBC transfusion CT abdomen and pelvis without contrast once more stable and blood has been transfused Transfer to [facility] as there is no GI coverage for higher level of care Discharge Plan: Transfer - Advance Directives Does patient have a Living Will: Yes Does patient have a Durable POA for Healthcare: Yes
[2018-11-14 10:25] VITALS: TEMP 96.8
[2018-11-14 10:41] VITALS: BMI 28.6
[2018-11-14 11:10] VITALS: O2SAT 100
[2018-11-14] MEDS ORDERED: FUROSEMIDE 20 MG/ 2ML VIAL IV ONE (12:00)
[2018-11-14] MEDS ORDERED: FUROSEMIDE 40 MG in NA CHLORIDE 0.9% 50 ML IV ONE (14:00)
[2018-11-14] MEDS ORDERED: OCTREOTIDE 500 MCG in NA CHLORIDE 0.9% 500 ML IV SCH (14:00)
[2018-11-14 14:47] LABS: Urine Appearance CLEAR; Urine Bilirubin NEGATIVE (NEG); Urine Blood NEGATIVE (NEG); Urine Color DK YELLOW; Urine Glucose NEGATIVE (NEG); Urine Protein NEGATIVE (NEG); Urine Urobilinogen 0.2 mg/dL (0.2-1.0)
[2018-11-14 15:09] LABS: Urine Bacteria <20 /HPF (NONE SEEN); Urine Culture Reflex Order NOT NEEDED; Urine RBC <5 /HPF (NONE SEEN)
[2018-11-14 16:25] VITALS: BP 104/48
--- NOTE | 2018-11-14 16:37 | CON ---
Date of Consultation: 11/14/2018 Consulting Physician: Kaveh Solis MD Reason For Consultation: Elevated BUN and creatinine, fluid management. History Of Present Illness: This is a pleasant 73-year-old gentleman with significant past medical h istory of hypertension, hyperlipidemia, recently admitted to [facility] with coronary arter y disease, atrial fibrillation in October 18, had acute kidney injury secondary to cardiorenal. For th at reason patient was initiated on dialysis. The patient transferred to our facility for rehabilitat ion in the rehab unit. The patient developed GI bleed with a drop in his blood pressure. For that r bjorn, we have been consulted. The patient had background of cirrhosis. The patient denied taking any nonsteroidal. No IV contrast. The patient upon transfer found to have low hemoglobin. The patient received 2 units of packed RBC a nd is going to receive FFP. The patient's last dialysis was Thursday. Past Medical History: Include hypertension, coronary artery disease, status post VA, cirrhosis secon gina to alcoholic liver disease. Home Medications: Include allopurinol, metoprolol, torsemide, furosemide, isosorbide, ketoconazole, lactulose, midodrine and simvastatin. Past Surgical History: Include PermCath placement, PTCA. Social History: Denies smoking. Denies drinking. Denies drugs abuse. Review of Systems: Head and Neck: No red eye. No ear pain. GI: Has rectal bleed. : No polyuria, no dysuria, no hematuria. Deckhand Crab Boat: Not applicable. Respiratory: Has shortness of breath. Cardiovascular: Has leg swelling. Endocrine: No polydipsia. Skin: No rash. Neuro: Has neuropathy, has leg pain. Physical Examination: Vital Signs: When I saw the patient, blood pressure 99/60, pulse of 88. Chest: Crackles bilateral base. Heart: S1, S2. Systolic murmur. Abdomen: Soft. Mild tenderness on the left lower quadrant. Extremities: +1 to 2 edema. Laboratory Data: H and H 5.7/18.8. Sodium of 140, potassium 4.5, bicarb 23, BUN 55, creatinine 3.3, GFR of 18, calcium 8.2, phosphor 5.2, albumin 2.2. Assessment And Plan: 1.Acute kidney injury secondary to hepatorenal, cardiorenal, nonoliguric, over volume, on dialysis. I going to continue dialysis Thursday, Thursday, Thursday. The patient looked to me on the wet side. We will continue with the transfusion and we will give Lasix as piggyback after transfusion. 2.Hypertension, currently hypotension secondary to hypovolemic shock. We will continue massive ahumada sfusion. 3.Anemia secondary to gastrointestinal loss and chronic kidney disease. Continue transfusion. Star t VU. 4.Coronary artery disease with the presence of GI bleed. We will continue massive transfusion. 5.Upper GI bleed. The patient is going to need GI evaluation. We will try to transfer the patient to other facility. Continue PPI for the time being. Hold all anticoagulation. 6.Colitis. I am going to go ahead and add Flagyl to his regimen and will follow up the patient. We will follow up CT. 7.Wound infection, Pseudomonas sensitive to Cipro. Continue current dose of Cipro. HEATHER Voice ID: [id number] Report ID: [id number]
[2018-11-14] MEDS ORDERED: FUROSEMIDE 20 MG TABLET PO SCH (17:00)
[2018-11-14] MEDS ORDERED: METRONIDAZOLE 500mg IVPB 500 MG/100 ML BAG IV SCH (17:00)
[2018-11-14] MEDS ORDERED: LACTULOSE 20 GM/30 ML UCUP PO SCH (21:00)
[2018-11-14] MEDS ORDERED: HOME MED 1 EA UNK (Midodrine Hcl [Midodrine Hcl] 10 MG) PO SCH (21:00)
[2018-11-14] MEDS ORDERED: CIPROFLOXACIN HCL 250 MG TAB PO SCH (21:00)
[2018-11-14] MEDS ORDERED: GABAPENTIN 300 MG CAP PO SCH (21:00)
[2018-11-14] MEDS ORDERED: MIDODRINE HCL 5 MG TABLET PO SCH (21:00)
[2018-11-14] MEDS ORDERED: ATORVASTATIN 10 MG TAB PO SCH (21:00)
[2018-11-15] MEDS ORDERED: CLOBETASOL PROPIONATE TP SCH (09:00)
[2018-11-15] MEDS ORDERED: POTASSIUM CL SA 10 MEQ TAB PO SCH (09:00)
[2018-11-15] MEDS ORDERED: EMOLL TP SCH (09:00)
[2018-11-15] MEDS ORDERED: HOME MED 1 EA UNK (Levocetirizine Dihydrochloride [Allergy Relief] 5 MG) PO SCH (09:00)
[2018-11-15] MEDS ORDERED: HOME MED 1 EA UNK (Simvastatin [Simvastatin] 20 MG) PO SCH (09:00)
[2018-11-15] MEDS ORDERED: CETIRIZINE HCL 5 MG TABLET PO SCH (09:00)
[2018-11-15] MEDS ORDERED: GABAPENTIN 300 MG CAP PO SCH (09:00)
== END 2018-11-14 16:30 | disposition short-term general hospital (02) | DRG 377 ==
LOC: 3RD-ICU 09:03
PROVIDERS: ADMIT Family Medicine; ATTEND Family Medicine
PROC: 30233N1 Transfusion of Nonautologous Red Blood Cells into Peripheral Vein, Percutaneous Approach (ICD-10-PCS; principal; 2018-11-14)
DX: K92.1 Melena (principal); N18.6 End stage renal disease; R57.1 Hypovolemic shock; D62 Acute posthemorrhagic anemia; N17.9 Acute kidney failure, unspecified; I12.0 Hypertensive chronic kidney disease with stage 5 chronic kidney disease or end stage renal disease; K70.30 Alcoholic cirrhosis of liver without ascites; Z99.2 Dependence on renal dialysis; I25.10 Atherosclerotic heart disease of native coronary artery without angina pectoris; Z95.5 Presence of coronary angioplasty implant and graft; I95.9 Hypotension, unspecified; Z79.01 Long term (current) use of anticoagulants; I25.2 Old myocardial infarction; K52.9 Noninfective gastroenteritis and colitis, unspecified; G62.9 Polyneuropathy, unspecified
CPT/HCPCS: 36415; 36430; 81001; 85610; 86850; 86900; 86901; C9113; J1940; J2354; P9016

== ENCOUNTER 2019-02-04 14:18 | Emergency (ER) | payer OTHER, BC ==
--- OUTSIDE RECORDS SUMMARY | 2019-02-04 14:21 | XMS REPORT | Clinical Summary ---
:1945 Author Organization [facility] Address [address] [place] [address] Care Team Providers Name Role Phone Darnell Harrison MD Primary Care Provider Allergies No Known Allergies Medications Medication Sig Dispensed Refills Start Date End Date Status allopurinol Take 100 mg 0 07/21/2018 Active (ZYLOPRIM) 100 MG by mouth. 0 tablet torsemide (DEMADEX) 0 07/21/2018 Active 20 MG tablet metoprolol tartrate 0 07/21/2018 Active (LOPRESSOR) 100 mg tablet simvastatin (ZOCOR) Take by 0 11/06/2018 Active 20 MG tablet mouth. folic acid Take 1 tablet 0 07/21/2018 Active (FOLVITE) 1 MG by mouth. tablet isosorbide Take by 0 09/15/2018 Active mononitrate (IMDUR) mouth. 30 MG 24 hr tablet traZODone (DESYREL) 0 07/21/2018 Active 50 MG tablet rivaroxaban Take 15 mg by 0 Active (XARELTO) 15 mg mouth. tablet traMADol (ULTRAM) TAKE ONE (1) 30 tablet 0 02/01/2019 Active 50 mg TABLET(S) BY 9 tabletIndications: MOUTH EVERY Primary SIX HOURS osteoarthritis of NEEDED FOR right knee, Chronic MODERATE PAIN pain of right knee FOR UP TO 7 DAYS. traMADol (ULTRAM) Take 1 tablet 30 tablet 0 12/28/2018 Discontinued 50 mg (50 mg total) 9 (Reorder) tabletIndications: by mouth Acute pain of right every 6 (six) knee hours as needed for moderate pain for up to 7 days. traMADol (ULTRAM) Take 1 tablet 30 tablet 0 01/17/2019 Discontinued 50 mg (50 mg total) 9 (Reorder) tabletIndications: by mouth Acute pain of right every 6 (six) knee hours as needed for moderate pain for up to 5 days. traMADol (ULTRAM) Take 1 tablet 30 tablet 0 01/19/2019 Discontinued 50 mg (50 mg total) 9 (Reorder) tabletIndications: by mouth Acute pain of right every 6 (six) knee hours as needed for moderate pain for up to 7 days. traMADol (ULTRAM) Take 1 tablet 30 tablet 0 01/25/2019 Discontinued 50 mg (50 mg total) 9 (Reorder) tabletIndications: by mouth chronic pain every 6 (six) hours as needed for moderate pain for up to 7 days .chronic pain. Active Problems No known active problems Encounters Date Type Specialty Care Team Description 01/30/2019 Refill Orthopedic Surgery Patel Peoples, Primary osteoarthritis of right knee; Chronic pain of right knee 01/25/2019 Office Visit Orthopedic Surgery Patel Peoples, Primary osteoarthritis of right knee (Primary Dx); Chronic pain of right knee; Acute pain of right knee 01/19/2019 Refill Orthopedic Surgery Patel Peoples, Acute pain of right knee 01/18/2019 Office Visit Orthopedic Surgery Patel Peoples, Acute pain of left knee (Primary Dx); Primary osteoarthritis of both knees; Chronic pain of right knee 01/17/2019 Refill Orthopedic Surgery Patel Peoples, Acute pain of right knee 01/11/2019 Office Visit Orthopedic Surgery Patel Peoples, Primary osteoarthritis of right knee (Primary Dx); Chronic pain of right knee 01/03/2019 Telephone Orthopedic Surgery Liat Ellison MA 12/28/2018 Office Visit Orthopedic Surgery Patel Peoples, Acute pain of right knee (Primary Dx) 11/14/2018 Intake Access N/A after 02/03/2018 Social History Tobacco Use Types Packs/Day Years Used Date Never Assessed Sex Assigned at Date Recorded Not on file Job Start Date Occupation Industry Not on file Not on file Not on file Travel History Travel Start Travel End No recent travel history available. Last Filed Vital Signs Vital Sign Reading Time Taken Comments Blood Pressure - - Pulse - - Temperature - - Respiratory Rate - - Oxygen Saturation - - Inhaled Oxygen Concentration - - Weight 81.6 kg (180 lb) 12/28/2018 2:05 PM CDT Height 175.3 cm (5' 9") 12/28/2018 2:05 PM CDT Body Mass Index 26.58 12/28/2018 2:05 PM CDT Plan of Treatment Health Maintenance Due Date Last Done Comments COLONOSCOPY SCREENING 1996 SHINGLES VACCINES (#1) 1996 65+ PNEUMOCOCCAL VACCINE (1 of 2 - PCV13) 2011 INFLUENZA VACCINE 12/30/2018 Procedures Procedure Name Priority Date/Time Associated Diagnosis Comments [place] ARTHROCENTESIS Routine 01/25/2019 10:40 Primary Results for this ASPIR&/INJ MAJOR AM CDT osteoarthritis of procedure are in JT/BURSA W/O US right knee the results Chronic pain of right section. knee XR KNEE 4+ VW LEFT Routine 01/18/2019 11:00 Acute pain of left Results for this AM CDT knee procedure are in the results section. [place] ARTHROCENTESIS Routine 01/18/2019 10:30 Acute pain of left Results for this ASPIR&/INJ MAJOR AM CDT knee procedure are in JT/BURSA W/O US Primary the results osteoarthritis of section. both knees [place] ARTHROCENTESIS Routine 01/18/2019 10:30 Primary Results for this ASPIR&/INJ MAJOR AM CDT osteoarthritis of procedure are in JT/BURSA W/O US both knees the results Chronic pain of right section. knee [place] ARTHROCENTESIS Routine 01/11/2019 10:40 Primary Results for this ASPIR&/INJ MAJOR AM CDT osteoarthritis of procedure are in JT/BURSA W/O US right knee the results Chronic pain of right section. knee XR KNEE 4+ VW RIGHT Routine 12/28/2018 2:16 Acute pain of right Results for this PM CDT knee procedure are in the results section. [place] ARTHROCENTESIS Routine 12/28/2018 2:10 Acute pain of right Results for this ASPIR&/INJ MAJOR PM CDT knee procedure are in JT/BURSA W/O US the results section. after 02/03/2018 Results Large Joint Arthrocentesis: knee, R knee (01/25/2019 10:40 AM CDT) [facility]25[facility]201[facility]57 PM Large Joint Arthrocentesis: knee, R knee Consent given by: patient Supporting Documentation Indications: pain Procedure Details Ultrasound guided: no Platelet Rich Plasma Used: no PRP Used Location: knee - R knee Right side: Needle size: 22 G Approach: anterior Right knee medications administered: 2 mL sodium hyaluronate (viscosup) 30 mg/2 mL Patient tolerance: patient tolerated the procedure well with no immediate complications XR Knee 4+ Vw Left (01/18/2019 11:00 AM CDT) Specimen Narrative Performed At [facility], lateral, notch and patella view of the left knee show mild medial [facility] compartment narrowing.The remainder of the x-rays are normal on the knees.There is no soft tissue calcification or abnormal spurring. Performing Organization Address City/State/Zipcode Phone Number [facility] [address] [place] [address] Large Joint Arthrocentesis: knee, L knee (01/18/2019 10:30 AM CDT) Narrative Performed At Patel Peoples MD 01/18/2019 12:25 PM Large Joint Arthrocentesis: knee, L knee Consent given by: patient Supporting Documentation Indications: pain Procedure Details Ultrasound guided: no Platelet Rich Plasma Used: no PRP Used Location: knee - L knee Left side: Needle size: 25 G Approach: anterior Left knee medications administered: 1 mL lidocaine 10 mg/mL (1 %); 6 mg betamethasone acetate & sodium phosphate 6 mg/mL Patient tolerance: patient tolerated the procedure well with no immediate complications Large Joint Arthrocentesis: knee, R knee (01/18/2019 10:30 AM CDT) Narrative Performed At Patel Peoples MD 01/18/2019 12:25 PM Large Joint Arthrocentesis: knee, R knee Consent given by: patient Supporting Documentation Indications: pain Procedure Details Ultrasound guided: no Platelet Rich Plasma Used: no PRP Used Location: knee - R knee Right side: Needle size: 22 G Approach: anterior Right knee medications administered: 2 mL sodium hyaluronate (viscosup) 30 mg/2 mL Patient tolerance: patient tolerated the procedure well with no immediate complications Large Joint Arthrocentesis: knee, R knee (01/11/2019 10:40 AM CDT) Narrative Performed At Patel Peoples MD 01/11/2019 11:52 AM Large Joint Arthrocentesis: knee, R knee Consent given by: patient Supporting Documentation Indications: pain Procedure Details Ultrasound guided: no Platelet Rich Plasma Used: no PRP Used Location: knee - R knee Right side: Needle size: 22 G Approach: anterior Right knee medications administered: 2 mL sodium hyaluronate (viscosup) 30 mg/2 mL Patient tolerance: patient tolerated the procedure well with no immediate complications XR Knee 4+ Vw Right (12/28/2018 2:16 PM CDT) Specimen Narrative Performed At [facility], lateral, notch and patella view of the right knee shows significant [facility] patellofemoral narrowing with spurring.There is no abnormal calcifications or loose bodies. 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 marked as required Supporting Documentation Indications: pain Procedure Details Ultrasound guided: no Platelet Rich Plasma Used: no PRP Used Location: knee - R knee Right side: Needle size: 25 G Approach: anterior Right knee medications administered: 1 mL lidocaine 10 mg/mL (1 %); 6 mg betamethasone acetate & sodium phosphate 6 mg/mL Patient tolerance: patient tolerated the procedure well with no immediate complications after 02/03/2018 Insurance Payer Benefit Plan / Subscriber ID Effective Dates Phone Address Type Group MEDICARE MEDICARE PART A xxxxxxxxxxx 2011-Present [place], [place] Medicare AND B BCBS BCBS CHOICE xxxxxxxxxxxx 2013-Present PPO PPO/FEDERAL EMPL PPO Advance Directives For more information, please contact: [phone] 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
--- OUTSIDE RECORDS SUMMARY | 2019-02-04 14:23 | XMS REPORT | Clinical Summary ---
:1945 Author Organization [facility] Address [address] [place] [address] Care Team Providers Name Role Phone Darnell Harrison Primary Care Provider Allergies No Known Allergies Medications Medication Sig Dispensed Refills Start Date End Date Status metoprolol Take 50 mg by 0 Active (LOPRESSOR) 50 MG mouth 2 (two) tablet times daily. folic acid (FOLVITE) Take 1 mg by 0 Active 1 MG tablet mouth daily. vitamin E 400 UNIT Take 400 Units 0 Active capsule by mouth daily. acetaminophen Take 2 tablets 30 tablet 0 11/24/2018 Active (TYLENOL) 325 MG (650 mg total) 0 tablet by mouth every 4 (four) hours as needed for up to 360 days. allopurinol Take 1 tablet 0 11/24/2018 Active (ZYLOPRIM) 100 MG (100 mg total) 0 tablet by mouth daily. apixaban (ELIQUIS) Take 1 tablet 0 11/24/2018 Active 2.5 mg Tab tablet (2.5 mg total) by mouth 2 (two) times daily. bumetanide (BUMEX) 1 Take 1 tablet 0 11/24/2018 Active MG tablet (1 mg total) by 0 mouth 2 (two) times daily. cetirizine (ZYRTEC) Take 1 tablet 0 11/24/2018 Active 10 MG tablet (10 mg total) 0 by mouth daily. aspirin 81 MG Take 81 mg by 0 Discontinued chewable tablet mouth daily. 9 isosorbide dinitrate Take 30 mg by 0 Discontinued (ISORDIL) 30 MG mouth 4 (four) 9 tablet times daily. traZODone (DESYREL) Take 50 mg by 0 Discontinued 50 MG tablet mouth nightly. 9 simvastatin (ZOCOR) Take 20 mg by 0 Discontinued 20 MG tablet mouth nightly. 9 colestipol 1 gram Take by mouth. 0 Discontinued Tab 9 digoxin (LANOXIN) Take 125 mcg by 0 Discontinued 0.125 MG tablet mouth daily. 9 furosemide (LASIX) Take 20 mg by 0 Discontinued 20 MG tablet mouth daily. 9 rivaroxaban Take 20 mg by 0 Discontinued (XARELTO) 20 mg Tab mouth daily. 9 tablet spironolactone Take 50 mg by 0 Discontinued (ALDACTONE) 50 MG mouth daily. 9 tablet hydrOXYzine (ATARAX) Take 25 mg by 0 Discontinued 25 MG tablet mouth every 9 night as needed. colchicine (COLCRYS) Take 0.6 mg by 0 Discontinued 0.6 mg tablet mouth as 9 needed. thiamine 100 MG Take 100 mg by 0 Discontinued tablet mouth daily. 9 omega-3 acid ethyl Take 2 g by 0 Discontinued esters (LOVAZA) 1 mouth 2 (two) 9 gram capsule times daily. apixaban (ELIQUIS) Take 2.5 mg by 0 Discontinued 2.5 mg Tab tablet mouth 2 (two) 9 times daily. sertraline (ZOLOFT) TAKE ONE (1) 30 tablet 2 10/19/2017 Discontinued 50 MG TABLET(S) BY 9 tabletIndications: MOUTH ONCE A Pruritus, Abnormal DAY. liver enzymes, Hyperlipidemia, unspecified hyperlipidemia type, Fatty liver, Screening for cancer, Cirrhosis of liver without ascites, unspecified hepatic cirrhosis type (HCC), Overweight sertraline (ZOLOFT) Take 1 tablet 60 tablet 0 08/03/2018 Discontinued 50 MG tablet (50 mg total) 9 by mouth daily. collagenase (SANTYL) Apply topically 15 g 0 11/24/2018 250 units/g ointment daily for 10 9 days. HYDROcodone-acetamin Take 1 tablet 30 tablet 0 11/24/2018 ophen (NORCO 5-325) by mouth every 9 5-325 mg per tablet 6 (six) hours as needed for up to 10 days. Max Daily Amount: 4 tablets lidocaine (LIDODERM) Place 1 patch 30 patch 0 11/24/2018 5 % patch onto the skin 9 daily for 30 days Remove & Discard patch within 12 hours or as directed by MD. predniSONE Take 2 tablets 0 11/24/2018 (DELTASONE) 20 MG (40 mg total) 9 tablet by mouth daily for 10 days. Active Problems Problem Noted Date Acute blood loss anemia 11/15/2018 ESRD (end stage renal disease) 11/15/2018 Pruritus 10/25/2015 Alcohol use 09/02/2013 Overweight 09/02/2013 [...] past. 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 He will need evaluation. My recommendation would be to go to the emergency room for admission and assessment. Patient refusing initially, other check labs . 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, unspecified vessel or lesion type; Lilo Al Acute gout of right knee, unspecified cause; MD Diego Acute idiopathic gout of right knee 11/14/2018 Telephone Critical Care Medicine [facility] Kem Decker MD 08/02/2018 Anesthesia Event Gastroenterology Puma Castañeda MD 08/02/2018 Surgery Gastroenterology Skyler Carrillo, UPPER ENDOSCOPY 08/01/2018 [facility] Cardiology Diego Matthew Ali - Encounter MD Kenan 08/03/2018 06/24/2018 Outside Orders Central Scheduling Emigdio Goncalves Acute renal failureMD unspecified acute renal failure type (HCC) (Primary Dx) 02/24/2018 Telephone Hepatology Katerina Pace refjoanie P, RN after 02/03/2018 Family History Medical History Relation Name Comments [...] Vital Sign Reading Time Taken Blood Pressure 131/79 11/24/2018 8:12 AM CDT Pulse 69 11/24/2018 8:12 AM CDT Temperature 36.5 C (97.7 F) 11/24/2018 8:12 AM CDT Respiratory Rate 18 11/24/2018 8:12 AM CDT Oxygen Saturation 97% 11/24/2018 8:12 AM CDT Inhaled Oxygen Concentration - - Weight 85.3 kg (188 lb) 11/24/2018 3:37 AM CDT Height 175.3 cm (5' 9") 11/20/2018 11:32 PM CDT Body Mass Index 27.76 11/24/2018 3:37 AM CDT Plan of Treatment Not on file Procedures Procedure Name Priority Date/Time Associated Comments Diagnosis RHYTHM STRIP - SCAN 11/29/2018 3:20 PM CDT ECHOCARDIOGRAM REPORT - 11/25/2018 9:14 SCAN PM CDT RHYTHM STRIP - SCAN 11/25/2018 11:40 AM CDT POCT-GLUCOSE METER Routine 11/24/2018 8:16 Results for this AM CDT procedure are in the results section. CBC W/PLT COUNT & AUTO Routine 11/24/2018 5:53 Results for this DIFFERENTIAL AM CDT procedure are in the results section. MAGNESIUM Routine 11/24/2018 5:53 Results for this AM CDT procedure are in the results section. CBC W/PLT COUNT & AUTO Routine 11/24/2018 5:53 Results for this DIFFERENTIAL AM CDT procedure are in the results section. BASIC METABOLIC PANEL Routine 11/24/2018 5:53 Results for this (7) AM CDT procedure are in the results section. POCT-GLUCOSE METER Routine 11/23/2018 9:23 Results for this PM CDT procedure are in the results section. POCT-GLUCOSE METER Routine 11/23/2018 5:27 Results for this PM CDT procedure are in the results section. TRANSESOPHAGEAL ECHO SURENDRA 11/23/2018 10:57 Results for this AM CDT procedure are in the results section. CBC W/PLT COUNT & AUTO Routine 11/23/2018 4:25 Results for this DIFFERENTIAL AM CDT procedure are in the results section. COMPREHENSIVE METABOLIC Routine 11/23/2018 4:25 Results for this PANEL AM CDT procedure are in the results section. CBC W/PLT COUNT & AUTO Routine 11/23/2018 4:25 Results for this DIFFERENTIAL AM CDT procedure are in the results section. PHOSPHORUS Routine 11/23/2018 4:25 Results for this AM CDT procedure are in the results section. MAGNESIUM Routine 11/23/2018 4:25 Results for this AM CDT procedure are in the results section. CALCIUM, IONIZED Routine 11/23/2018 4:25 Results for this AM CDT procedure are in the results section. HEPATITIS B PANEL Routine 11/22/2018 7:04 Results for this PM CDT procedure are in the results section. CONT WAVE PULSED DOPPLER Routine 11/22/2018 5:38 PM CDT COLOR-FLOW MAPPING Routine 11/22/2018 5:38 PM CDT POCT-GLUCOSE METER Routine 11/22/2018 12:40 Results for this PM CDT procedure are in the results section. POCT-GLUCOSE METER Routine 11/22/2018 7:39 Results for this AM CDT procedure are in the results section. CBC W/PLT COUNT & AUTO Routine 11/22/2018 3:14 Results for this DIFFERENTIAL AM CDT procedure are in the results section. CBC W/PLT COUNT & AUTO Routine 11/22/2018 3:14 Results for this DIFFERENTIAL AM CDT procedure are in the results section. PHOSPHORUS Routine 11/22/2018 3:14 Results for this AM CDT procedure are in the results section. MAGNESIUM Routine 11/22/2018 3:14 Results for this AM CDT procedure are in the results section. COMPREHENSIVE METABOLIC Routine 11/22/2018 3:14 Results for this PANEL AM CDT procedure are in the results section. CALCIUM, IONIZED Routine 11/22/2018 3:14 Results for this AM CDT procedure are in the results section. POCT-GLUCOSE METER Routine 11/21/2018 11:30 Results for this PM CDT procedure are in the results section. CBC W/PLT COUNT & AUTO Routine 11/21/2018 4:44 Results for this DIFFERENTIAL AM CDT procedure are in the results section. CBC W/PLT COUNT & AUTO Routine 11/21/2018 4:44 Results for this DIFFERENTIAL AM CDT procedure are in the results section. PHOSPHORUS Routine 11/21/2018 4:44 Results for this AM CDT procedure are in the results section. MAGNESIUM Routine 11/21/2018 4:44 Results for this AM CDT procedure are in the results section. COMPREHENSIVE METABOLIC Routine 11/21/2018 4:44 Results for this PANEL AM CDT procedure are in the results section. CALCIUM, IONIZED Routine 11/21/2018 4:44 Results for this AM CDT procedure are in the results section. POCT-GLUCOSE METER Routine 11/20/2018 10:14 Results for this PM CDT procedure are in the results section. POCT-GLUCOSE METER Routine 11/20/2018 11:55 Results for this AM CDT procedure are in the results section. POCT-GLUCOSE METER Routine 11/20/2018 8:18 Results for this AM CDT procedure are in the results section. CBC W/PLT COUNT & AUTO Routine 11/20/2018 3:56 Results for this DIFFERENTIAL AM CDT procedure are in the results section. RETICULOCYTE COUNT Routine 11/20/2018 3:56 Results for this AM CDT procedure are in the results section. FERRITIN Routine 11/20/2018 3:56 Results for this AM CDT procedure are in the results section. IRON, TIBC, % SAT. Routine 11/20/2018 3:56 Results for this (WITHOUT FERRITIN) AM CDT procedure are in the results section. CBC W/PLT COUNT & AUTO Routine 11/20/2018 3:56 Results for this DIFFERENTIAL AM CDT procedure are in the results section. PHOSPHORUS Routine 11/20/2018 3:56 Results for this AM CDT procedure are in the results section. MAGNESIUM Routine 11/20/2018 3:56 Results for this AM CDT procedure are in the results section. COMPREHENSIVE METABOLIC Routine 11/20/2018 3:56 Results for this PANEL AM CDT procedure are in the results section. CALCIUM, IONIZED Routine 11/20/2018 3:56 Results for this AM CDT procedure are in the results section. POCT-GLUCOSE METER Routine 11/19/2018 10:03 Results for this PM CDT procedure are in the results section. HEMODIALYSIS INPATIENT Routine 11/19/2018 9:58 Results for this PM CDT procedure are in the results section. POCT-GLUCOSE METER Routine 11/19/2018 5:25 Results for this PM CDT procedure are in the results section. POCT-GLUCOSE METER Routine 11/19/2018 11:30 Results for this AM CDT procedure are in the results section. C-REACTIVE PROTEIN STAT 11/19/2018 10:14 Results for this AM CDT procedure are in the results section. XR KNEE LEFT 1 OR 2 STAT 11/19/2018 9:54 Results for this VIEWS AM CDT procedure are in the results section. XR KNEE RIGHT 1 OR 2 STAT 11/19/2018 9:46 Results for this VIEWS AM CDT procedure are in the results section. POCT-GLUCOSE METER Routine 11/19/2018 7:41 Results for this AM CDT procedure are in the results section. CBC W/PLT COUNT & AUTO Routine 11/19/2018 4:09 Results for this DIFFERENTIAL AM CDT procedure are in the results section. CBC W/PLT COUNT & AUTO Routine 11/19/2018 4:09 Results for this DIFFERENTIAL AM CDT procedure are in the results section. PHOSPHORUS Routine 11/19/2018 4:09 Results for this AM CDT procedure are in the results section. MAGNESIUM Routine 11/19/2018 4:09 Results for this AM CDT procedure are in the results section. COMPREHENSIVE METABOLIC Routine 11/19/2018 4:09 Results for this PANEL AM CDT procedure are in the results section. CALCIUM, IONIZED Routine 11/19/2018 4:09 Results for this AM CDT procedure are in the results section. POCT-GLUCOSE METER Routine 11/18/2018 10:02 Results for this PM CDT procedure are in the results section. POCT-GLUCOSE METER Routine 11/18/2018 5:51 Results for this PM CDT procedure are in the results section. POCT-GLUCOSE METER Routine 11/18/2018 1:45 Results for this PM CDT procedure are in the results section. CBC W/PLT COUNT & AUTO Routine 11/18/2018 5:17 Results for this DIFFERENTIAL AM CDT procedure are in the results section. CBC W/PLT COUNT & AUTO Routine 11/18/2018 5:17 Results for this DIFFERENTIAL AM CDT procedure are in the results section. CALCIUM, IONIZED Routine 11/18/2018 5:17 Results for this AM CDT procedure are in the results section. PHOSPHORUS Routine 11/18/2018 5:16 Results for this AM CDT procedure are in the results section. MAGNESIUM Routine 11/18/2018 5:16 Results for this AM CDT procedure are in the results section. COMPREHENSIVE METABOLIC Routine 11/18/2018 5:16 Results for this PANEL AM CDT procedure are in the results section. ECG 12-LEAD Routine 11/17/2018 7:01 PM CDT Procedure Note - Interface, External Ris In - 11/17/2018 7:12 PM CDT Ventricular Rate 102 BPM Atrial Rate 90 BPM QRS Duration 104 ms Q-T Interval 398 ms QTC Calculation(Bazett) 518 ms R Montrose -25 degrees T [place] 48 degrees Atrial fibrillation with rapid ventricular response Low voltage QRS Abnormal ECG When compared with ECG of 15-NOV-2018 04:23, No significant change was found ECG 12-LEAD Routine 11/17/2018 Results for 7:01 PM CDT this procedure are in the results section. TRANSFUSION SERVICE 11/17/2018 REPORT - SCAN 6:02 PM CDT HEMOGLOBIN AND Routine 11/17/2018 Results for HEMATOCRIT 3:31 PM CDT this procedure are in the results section. NM HEMORRHAGE IMAGING STAT 11/17/2018 Results for RBC 2:16 PM CDT this procedure are in the results section. VANCOMYCIN LEVEL, RANDOM Routine 11/17/2018 Results for 8:15 AM CDT this procedure are in the results section. HEMOGLOBIN AND Routine 11/17/2018 Results for HEMATOCRIT 8:15 AM CDT this procedure are in the results section. CBC W/PLT COUNT & AUTO Routine 11/17/2018 Results for DIFFERENTIAL 2:12 AM CDT this procedure are in the results section. PHOSPHORUS Routine 11/17/2018 Results for 2:12 AM CDT this procedure are in the results section. MAGNESIUM Routine 11/17/2018 Results for 2:12 AM CDT this procedure are in the results section. COMPREHENSIVE METABOLIC Routine 11/17/2018 Results for PANEL 2:12 AM CDT this procedure are in the results section. CALCIUM, IONIZED Routine 11/17/2018 Results for 2:12 AM CDT this procedure are in the results section. CBC W/PLT COUNT & AUTO Routine 11/17/2018 Results for DIFFERENTIAL 2:12 AM CDT this procedure are in the results section. PREPARE LEUKO-REDUCED STAT 11/16/2018 Results for RBC 11:54 PM CDT this procedure are in the results section. PREPARE LEUKO-REDUCED STAT 11/16/2018 Results for PLATELETS 11:54 PM CDT this procedure are in the results section. PREPARE PLASMA Routine 11/16/2018 Results for 11:54 PM CDT this procedure are in the results section. PREPARE LEUKO-REDUCED Routine 11/16/2018 Results for RBC 11:54 PM CDT this procedure are in the results section. PLATELET AGGREGATION: AP Routine 11/16/2018 Results for FUNCTION SCREEN 7:59 PM CDT this procedure are in the results section. HEPARIN ASSAY - LOW STAT 11/16/2018 Results for MOLECULAR WEIGHT 6:43 PM CDT this procedure are in the results section. HEPARIN ASSAY - Routine 11/16/2018 Results for UNFRACTIONATED 6:43 PM CDT this procedure are in the results section. PT/APTT STAT 11/16/2018 Results for 6:43 PM CDT this procedure are in the results section. PHOSPHORUS STAT 11/16/2018 Results for 6:21 PM CDT this procedure are in the results section. MAGNESIUM STAT 11/16/2018 Results for 6:21 PM CDT this procedure are in the results section. BASIC METABOLIC PANEL STAT 11/16/2018 Results for (7) 6:21 PM CDT this procedure are in the results section. HEMOGLOBIN AND Routine 11/16/2018 Results for HEMATOCRIT 6:15 PM CDT this procedure are in the results section. TRANSFUSION SERVICE 11/16/2018 REPORT - SCAN 6:02 PM CDT THROMBOELASTOGRAPH (TEG) STAT 11/16/2018 Results for 9:46 AM CDT this procedure are in the results section. CBC W/PLT COUNT & AUTO Routine 11/16/2018 Results for DIFFERENTIAL 3:43 AM CDT this procedure are in the results section. VANCOMYCIN LEVEL, RANDOM Routine 11/16/2018 Results for 3:43 AM CDT this procedure are in the results section. PHOSPHORUS Routine 11/16/2018 Results for 3:43 AM CDT this procedure are in the results section. MAGNESIUM Routine 11/16/2018 Results for 3:43 AM CDT this procedure are in the results section. COMPREHENSIVE METABOLIC Routine 11/16/2018 Results for PANEL 3:43 AM CDT this procedure are in the results section. CALCIUM, IONIZED Routine 11/16/2018 Results for 3:43 AM CDT this procedure are in the results section. CBC W/PLT COUNT & AUTO Routine 11/16/2018 Results for DIFFERENTIAL 3:43 AM CDT this procedure are in the results section. HEMOGLOBIN AND Routine 11/16/2018 Results for HEMATOCRIT 12:04 AM CDT this procedure are in the results section. HEMOGLOBIN AND STAT 11/15/2018 Results for HEMATOCRIT 8:32 PM CDT this procedure are in the results section. REPORT OF PROCEDURE - 11/15/2018 ENDOSCOPY URL 6:13 PM CDT HEMOGLOBIN AND STAT 11/15/2018 Results for HEMATOCRIT 6:05 PM CDT this procedure are in the results section. TRANSFUSION SERVICE 11/15/2018 REPORT - SCAN 6:01 PM CDT ENTEROSCOPY,BIOPSY 11/15/2018 Gastrointestinal 4:57 PM CDT hemorrhage, unspecified gastrointestinal hemorrhage type Special Needs ENTEROSCOPY with Anesthesia TRANSFUSE LEUKO-REDUCED RED STAT 11/15/2018 4:03 PM CDT BLOOD CELLS TRANSFUSE LEUKO-REDUCED STAT 11/15/2018 2:08 PM CDT PLATELETS HEMOGLOBIN AND HEMATOCRIT STAT 11/15/2018 1:33 PM CDT HEMODIALYSIS INPATIENT Routine 11/15/2018 11:42 AM CDT AMMONIA STAT 11/15/2018 9:07 AM CDT HEPATITIS B SURFACE ANTIGEN Routine 11/15/2018 9:07 AM CDT HEMOGLOBIN AND HEMATOCRIT STAT 11/15/2018 9:07 AM CDT (CELLAVISION MANUAL DIFF) Routine 11/15/2018 5:01 AM CDT CBC W/PLT COUNT & AUTO Routine 11/15/2018 5:01 AM CDT Results for this DIFFERENTIAL procedure are in the results section. HEMOGLOBIN AND HEMATOCRIT STAT 11/15/2018 5:01 AM CDT PHOSPHORUS Routine 11/15/2018 5:01 AM CDT MAGNESIUM Routine 11/15/2018 5:01 AM CDT BASIC METABOLIC PANEL (7) Routine 11/15/2018 5:01 AM CDT CBC W/PLT COUNT & AUTO Routine 11/15/2018 5:01 AM CDT Results for this DIFFERENTIAL procedure are in the results section. TRANSFUSE LEUKO-REDUCED RED Routine 11/15/2018 4:55 AM CDT BLOOD CELLS ECG 12-LEAD Routine 11/15/2018 4:23 AM CDT Procedure Note - Interface, External Ris In - 11/15/2018 6:06 AM CDT Ventricular Rate 110 BPM Atrial Rate 107 BPM QRS Duration 104 ms Q-T Interval 378 ms QTC Calculation(Bazett) 511 ms R Montrose -36 degrees T [place] 22 degrees Atrial fibrillation with rapid ventricular response Left axis deviation Low voltage QRS Cannot rule out Anterior infarct , age undetermined Abnormal ECG When compared with ECG of 05-JAN-2013 15:40, Vent. rate has increased BY 47 BPM QT has lengthened ECG 12-LEAD Routine 11/15/2018 4:23 Results for AM CDT this procedure are in the results section. TRANSFUSE PLASMA Routine 11/15/2018 1:48 AM CDT URINALYSIS W/ REFLEX Routine 11/14/2018 10:57 Results for URINE CULTURE PM CDT this procedure are in the results section. URINE CULTURE Routine 11/14/2018 10:57 Results for PM CDT this procedure are in the results section. PROCALCITONIN Routine 11/14/2018 10:44 Results for PM CDT this procedure are in the results section. CALCIUM, IONIZED STAT 11/14/2018 10:44 Results for PM CDT this procedure are in the results section. HEMOGLOBIN AND STAT 11/14/2018 10:44 Results for HEMATOCRIT PM CDT this procedure are in the results section. LACTIC ACID, VENOUS STAT 11/14/2018 10:44 Results for PM CDT this procedure are in the results section. BLOOD CULTURE Routine 11/14/2018 10:13 Results for PM CDT this procedure are in the results section. BLOOD CULTURE Routine 11/14/2018 10:12 Results for PM CDT this procedure are in the results section. (CELLAVISION MANUAL Routine 11/14/2018 8:09 Results for DIFF) PM CDT this procedure are in the results section. CBC W/PLT COUNT & AUTO Routine 11/14/2018 8:09 Results for DIFFERENTIAL PM CDT this procedure are in the results section. TYPE AND SCREEN, Routine 11/14/2018 8:09 Results for AUTOMATED PM CDT this procedure are in the results section. CBC W/PLT COUNT & AUTO Routine 11/14/2018 8:09 Results for DIFFERENTIAL PM CDT this procedure are in the results section. THROMBOELASTOGRAPH (TEG) Routine 11/14/2018 8:09 Results for PM CDT this procedure are in the results section. XR CHEST 1 VIEW STAT 11/14/2018 7:49 Results for PORTABLE/BEDSIDE PM CDT this procedure are in the results section. CENTRAL LINE INSERTION Routine 11/14/2018 7:16 Results for PM CDT this procedure are in the results section. COMPREHENSIVE METABOLIC Routine 11/14/2018 6:28 Results for PANEL PM CDT this procedure are in the results section. PROTHROMBIN TIME/INR Routine 11/14/2018 6:28 Results for PM CDT this procedure are in the results section. HEMOGLOBIN AND Routine 11/14/2018 6:28 Results for HEMATOCRIT PM CDT this procedure are in the results section. REPORT OF PROCEDURE - 08/06/2018 10:30 ENDOSCOPY SCAN AM [facility] RHYTHM STRIP - SCAN 08/06/2018 10:30 AM [facility] TRANSFUSION SERVICE 08/03/2018 6:05 REPORT - SCAN PM [facility] (CELLAVISION MANUAL Routine 08/03/2018 6:04 Results for DIFF) AM [facility] this procedure are in the results section. CBC W/PLT COUNT & AUTO Routine 08/03/2018 6:04 Results for DIFFERENTIAL AM [facility] this procedure are in the results section. B-TYPE NATRIURETIC Routine 08/03/2018 6:04 Results for FACTOR (BNP) AM [facility] this procedure are in the results section. CBC W/PLT COUNT & AUTO Routine 08/03/2018 6:04 Results for DIFFERENTIAL AM [facility] this procedure are in the results section. PHOSPHORUS Routine 08/03/2018 6:04 Results for AM [facility] this procedure are in the results section. MAGNESIUM Routine 08/03/2018 6:04 Results for AM [facility] this procedure are in the results section. COMPREHENSIVE METABOLIC Routine 08/03/2018 6:04 Results for PANEL AM [facility] this procedure are in the results section. CALCIUM, IONIZED Routine 08/03/2018 6:04 Results for AM [facility] this procedure are in the results section. XR CHEST 1 VIEW Routine 08/03/2018 12:39 Results for PORTABLE/BEDSIDE AM [facility] this procedure are in the results section. PREPARE LEUKO-REDUCED Routine 08/02/2018 11:54 Results for RBC PM [facility] this procedure are in the results section. TRANSFUSION SERVICE 08/02/2018 6:00 REPORT - SCAN PM [facility] REPORT OF PROCEDURE - 08/02/2018 4:51 ENDOSCOPY URL PM [facility] REPORT OF PROCEDURE - 08/02/2018 4:39 ENDOSCOPY URL PM [facility] COLONOSCOPY 08/02/2018 4:00 Gastrointestinal PM [facility] hemorrhage, unspecified gastrointestinal hemorrhage type UPPER ENDOSCOPY 08/02/2018 4:00 Gastrointestinal PM [facility] hemorrhage, unspecified gastrointestinal hemorrhage type BASIC METABOLIC PANEL Routine 08/02/2018 6:41 Results for (7) AM [facility] this procedure are in the results section. CBC (HEMOGRAM ONLY) Routine 08/02/2018 6:41 Results for AM [facility] this procedure are in the results section. POCT-GLUCOSE METER Routine 08/01/2018 9:16 Results for PM [facility] this procedure are in the results section. BASIC METABOLIC PANEL STAT 08/01/2018 6:50 Results for (7) PM [facility] this procedure are in the results section. TRANSFUSE LEUKO-REDUCED Routine 08/01/2018 3:33 RED BLOOD CELLS PM [facility] CREATININE, RANDOM URINE Routine 08/01/2018 1:01 Results for PM [facility] this procedure are in the results section. UREA NITROGEN, RANDOM Routine 08/01/2018 1:01 Results for URINE PM [facility] this procedure are in the results section. SODIUM, RANDOM URINE Routine 08/01/2018 1:01 Results for PM PRECISION MILLWRIGHT this procedure are in the results section. URINALYSIS W/ Routine 08/01/2018 1:01 Results for MICROSCOPIC PM [facility]CISION M[facility]WRIGHT this procedure are in the results section. CBC W/PLT COUNT & AUTO Routine 08/01/2018 6:04 Results for DIFFERENTIAL AM PRECISION MILLWRIGHT this procedure are in the results section. TYPE AND SCREEN, SURENDRA 08/01/2018 6:04 Results for AUTOMATED AM PRECISION MILLWRIGHT this procedure are in the results section. PT/APTT Routine 08/01/2018 6:04 Results for AM PRECISION MILLWRIGHT this procedure are in the results section. MAGNESIUM Routine 08/01/2018 6:04 Results for AM PRECISION MILLWRIGHT this procedure are in the results section. BASIC METABOLIC PANEL Routine 08/01/2018 6:04 Results for (7) AM PRECISION MILLWRIGHT this procedure are in the results section. CBC W/PLT COUNT & AUTO Routine 08/01/2018 6:04 Results for DIFFERENTIAL AM PRECISION MILLWRIGHT this procedure are in the results section. after 02/03/2018 Results RHYTHM STRIP - SCAN (11/29/2018 3:20 PM CDT)Only the most recent of3 resultswithin the time period is included. Narrative Performed At ECHOCARDIOGRAM REPORT - SCAN (11/25/2018 9:14 PM CDT) Narrative Performed At POC-Glucose meter (11/24/2018 8:16 AM CDT)Only the most recent of17 resultswithin the time period is included. POC-Glucose Meter 87Comment: TESTED AT 70 - 110 mg/dL [facility]SC [address] [facility] [id number] Specimen Blood Performing Organization Address City/State/Zipcode Phone Number [facility] [address] [place], [place] [address] [phone] CENTER CBC with platelet count + automated diff (11/24/2018 5:53 AM CDT)Only the most recent of13 resultswithin the time period is included. WBC 12.5 (H) 3.5 - 10.5 K/L [facility] RBC 3.15 (L) 4.63 - 6.08 M/L [facility] Hemoglobin 8.6 (L) 13.7 - 17.5 GM/DL [facility] Hematocrit 28.6 (L) 40.1 - 51.0 % [facility] MCV 90.8 79.0 - 92.2 fL [facility] MCH 27.3 25.7 - 32.2 pg [facility] MCHC 30.1 (L) 32.3 - 36.5 GM/DL [facility] RDW 24.3 (H) 11.6 - 14.4 % [facility] Platelets 427 150 - 450 K/CU MM [facility] MPV 9.5 9.4 - 12.4 fL [facility] nRBC 0 0 - 0 /100 WBC [facility] % Neutros 73 % [facility] % Lymphs 8 % [facility] % Monos 8 % [facility] % Eos 8 % [facility] % Baso 1 % [facility] # Neutros 9.15 (H) 1.78 - 5.38 K/L [facility] # Lymphs 1.03 (L) 1.32 - 3.57 K/L [facility] # Monos 0.98 (H) 0.30 - 0.82 K/L [facility] # Eos 1.02 (H) 0.04 - 0.54 K/L [facility] # Baso 0.07 0.01 - 0.08 K/L [facility] Immature Granulocytes-Relative 2 (H) 0 - 1 % [facility] Specimen Blood Performing Organization Address City/State/Zipcode Phone Number [place] [phone] [place] Magnesium (11/24/2018 5:53 AM CDT)Only the most recent of13 resultswithin the time period is included. Magnesium 1.9Comment: Specimen slightly 1.6 - 2.6 mg/dL [facility] Specimen Blood Performing Organization Address City/State/Zipcode Phone Number [address] [address] [place] Basic Metabolic Panel (11/24/2018 5:53 AM CDT)Only the most recent of6 resultswithin the time period is included. Sodium 140 136 - 145 meq/L [facility] Potassium 4.3Comment: Specimen slightly 3.5 - 5.1 meq/L [facility] hemolyzed [facility] Chloride 106 98 - 107 meq/L [facility] CO2 26 22 - 29 meq/L [facility] BUN 37 (H) 7 - 21 mg/dL [facility] Creatinine 2.17 (H)Comment: Specimen 0.57 - 1.25 mg/dL [facility] slightly hemolyzed [facility] Glucose 96 70 - 105 mg/dL [facility] Calcium 8.2 (L) 8.4 - 10.2 mg/dL [facility] EGFR 30Comment: ESTIMATED GFR IS mL/min/1.73 sq m [facility] NOT ACCURATE [facility] CLEARANCE IN PREDICTING GLOMERULAR FILTRATION RATE. ESTIMATED GFR IS NOT APPLICABLE FOR DIALYSIS PATIENTS. Specimen Blood Performing Organization Address City/State/Zipcode Phone Number [facility] [address] [place] [address] [phone] CENTER Transesophageal echo (11/23/2018 10:57 AM CDT) Ejection Fraction [facility] Specimen Narrative Performed At Transesophageal Echocardiography Report (SAMUEL) [facility] Demographics Patient Name Jay ESCALANTE of Study11/23/2018 SELINA [id number] Gender Male Visit Number [id number] Unknown [id number] Room [id number] Number Date of Birth1945Referring Francisco Can MD Physician Age73 year(s)[employer]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 Clinical History A-FIB,CANCER,CHF,CAD,GOUT,HEART ATTACK,HTN,REFLUX,S/P STENT ,HERNIA REPAIR Height: 69 inches Weight: 84.82 kg (187 lbs) BSA: 2.01 m^2 BMI: 27.61 kg/m^2 HR: 76 bpm BP: 123/71 mmHg Procedure Informed Consent SAMUEL procedure notes Moderate sedation by performing MD using 3 mg IV versed and 50 mcg IV fentanyl. . Summary Normal overall left ventricular systolic function. LA size is severely enlarged . No LA appendage Thrombus visualized. ANUPAM measurements per watchman protocol noted below. There is mild aortic regurgitation. Severe eccentric mitral regurgiation. EROA 0.52 cm2. Posteriorly directed MR jet due to A3 segment prolapse of the anterior mitral valve leaflet. P3 segment of the posterior mitral valve is also prolapsed. Severe tricuspid regurgitation. Estimated peak systolic PA pressure is 35-40 mmHg + RA pressure. Signature Findings Rhythm/BPAtrial fibrillation with controlled ventricular re sponse. Left Ventricle Normal overall left ventricular systolic function. Al l segments contract normally. No rmal left ventricle cavity size. Left AtriumLA size is severely enlarged . No LA appendage Thrombus visualized. LA appendage ostium diameter is 3.19 cm at ap proximately 90 degrees. LA appendage length is 3.55 cm at approximately 90 de grees. LA appendage ostium diameter is 2.46 cm at ap proximately 45 degrees. LA appendage length is 3.14 cm at approximately 45 de grees. LA appendage ostium diameter is 3.58 cm at ap proximately 0 degrees. LA appendage length is 3.53 cm at approximately 0 de grees. LA appendage ostium diameter is 3.27 cm at ap proximately 135 degrees. LA appendage length is 2.99 cm at approximately 135 de grees. Right VentricleThe right ventricular chamber size and systolic fu nction are within normal limits. Right Atrium RA size is severely dilated. RA catheter is visualized . Atrial SeptumIV saline contrast injection was negative for a PFO (p atent foramen ovale) at rest . Aortic Valve Mild AoV cusp thickening. Mi ld AoV cusp calcification. Ao V cusp mobility is normal . Th ere is mild aortic regurgitation. Mitral Valve Severe eccentric mitral regurgiation. EROA 0.52 cm 2. Po steriorly directed MR jet due to A3 segment pr olapse of the anterior mitral valve leaflet. P3 se gment of the posterior mitral valve is also pr olapsed. Tricuspid ValveTV structure is normal. Se sivan tricuspid regurgitation. Es timated peak systolic PA pressure is 35-40 mmHg + RA pressure. Pulmonic Valve Normal PV structure and function by limited views an d Doppler. AortaAortic root size (SInus of Valsalva diameter) is no rmal . Calcification of the aortic root noted. PericardiumNo significant pericardial effusion is visualized. IVC/SVC/PA/PV/PleuralThe visualized SVC appears normal. A catheter is vi sualized within the SVC with fibrinous material at tached. Doppler/Quantitative Measurements Mitral Valve PISA Radius: 1.17 cmMR Velocity: 4.44 m/s MR VTI: 132.65 cm MV EROA (PISA): 8.6 cm^2 MV Jose. 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 Clinical History A-FIB,CANCER,CHF,CAD,GOUT,HEART ATTACK,HTN,REFLUX,S/P STENT ,HERNIA REPAIR Height: 69 inches Weight: 84.82 kg (187 lbs) BSA: 2.01 m^2 BMI: 27.61 kg/m^2 HR: 76 bpm BP: 123/71 mmHg Procedure Informed Consent SAMUEL procedure notes Moderate sedation by performing MD using 3 mg IV versed and 50 mcg IV fentanyl. . Summary Normal overall left ventricular systolic function. LA size is severely enlarged . No LA appendage Thrombus visualized. ANUPAM measurements per watchman protocol noted below. There is mild aortic regurgitation. Severe eccentric mitral regurgiation. EROA 0.52 cm2. Posteriorly directed MR jet due to A3 segment prolapse of the anterior mitral valve leaflet. P3 segment of the posterior mitral valve is also prolapsed. Severe tricuspid regurgitation. Estimated peak systolic PA pressure is 35-40 mmHg + RA pressure. Signature Findings Rhythm/BP Atrial fibrillation with controlled ventricular response. Left Ventricle Normal overall left ventricular systolic function. All segments contract normally. Normal left ventricle cavity size. Left Atrium LA size is severely enlarged . No LA appendage Thrombus visualized. LA appendage ostium diameter is 3.19 cm at approximately 90 degrees. LA appendage length is 3.55 cm at approximately 90 degrees. LA appendage ostium diameter is 2.46 cm at approximately 45 degrees. LA appendage length is 3.14 cm at approximately 45 degrees. LA appendage ostium diameter is 3.58 cm at approximately 0 degrees. LA appendage length is 3.53 cm at approximately 0 degrees. LA appendage ostium diameter is 3.27 cm at approximately 135 degrees. LA appendage length is 2.99 cm at approximately 135 degrees. Right Ventricle The right ventricular chamber size and systolic function are within normal limits. Right Atrium RA size is severely dilated. RA catheter is visualized . Atrial Septum IV saline contrast injection was negative for a PFO (patent foramen ovale) at rest . Aortic Valve Mild AoV cusp thickening. Mild AoV cusp calcification. AoV cusp mobility is normal . There is mild aortic regurgitation. Mitral Valve Severe eccentric mitral regurgiation. EROA 0.52 cm2. Posteriorly directed MR jet due to A3 segment prolapse of the anterior mitral valve leaflet. P3 segment of the posterior mitral valve is also prolapsed. Tricuspid Valve TV structure is normal. Severe tricuspid regurgitation. Estimated peak systolic PA pressure is 35-40 mmHg + RA pressure. Pulmonic Valve Normal PV structure and function by limited views and Doppler. Aorta Aortic root size (SInus of Valsalva diameter) is normal . Calcification of the aortic root noted. Pericardium No significant pericardial effusion is visualized. IVC/SVC/PA/PV/Pleural The visualized SVC appears normal. A catheter is visualized within the SVC with fibrinous material attached. Doppler/Quantitative Measurements Mitral Valve PISA Radius: 1.17 cm MR Velocity: 4.44 m/s MR VTI: 132.65 cm MV EROA (PISA): 8.6 cm^2 MV Jose. Peak: Performing Organization Address City/State/Zipcode Phone Number [facility] Calcium, Ionized (11/23/2018 4:25 AM CDT)Only the most recent of10 resultswithin the time period is included. Calcium, Ion 1.02 (L) 1.12 - 1.27 mmol/L [facility] pH, Blood 7.48 [facility] Specimen Blood Performing Organization Address City/[facility]/Zipcode Phone Number [address] [address] [place] Phosphorus (11/23/2018 4:25 AM CDT)Only the most recent of11 resultswithin the time period is included. Phosphorus 3.2 2.3 - 4.7 mg/dL [facility] Specimen Blood Performing Organization Address City/[facility]/Zipcode Phone Number [address] [phone] [place] Comprehensive metabolic panel (11/23/2018 4:25 AM CDT)Only the most recent of10 resultswithin the time period is included. Protein, Total 5.1 (L) 6.0 - 8.3 gm/dL [facility] Albumin 2.9 (L) 3.5 - 5.0 g/dL [facility] Alkaline Phosphatase 286 (H) 40 - 150 U/L [facility] Total Bilirubin 1.1 0.2 - 1.2 mg/dL [facility] Sodium 141 136 - 145 meq/L [facility] Potassium 3.6 3.5 - 5.1 meq/L [facility] Chloride 106 98 - 107 meq/L [facility] CO2 27 22 - 29 meq/L [facility] BUN 30 (H) 7 - 21 mg/dL [facility] Creatinine 1.88 (H) 0.57 - 1.25 mg/dL [facility] Glucose 107 (H) 70 - 105 mg/dL [facility] Calcium 8.2 (L) 8.4 - 10.2 mg/dL [facility] AST 44 (H) 5 - 34 U/L [facility] ALT 46 6 - 55 U/L [facility] EGFR 35Comment: ESTIMATED GFR mL/min/1.73 sq m [facility] IS NOT ACCURATE [facility] CREATININE CLEARANCE IN PREDICTING GLOMERULAR FILTRATION RATE. ESTIMATED GFR IS NOT APPLICABLE FOR DIALYSIS PATIENTS. Specimen Blood Performing Organization Address [facility] Phone Number [address] [phone] CENTER Hepatitis B Panel (11/22/2018 7:04 PM CDT) Hep B Core Total Ab Nonreactive Nonreactive [facility] Hep B S Ab <8.0 <8.0 mIU/mL [facility] hepatitis B Surface Ag Nonreactive Nonreactive [facility] Specimen Blood Performing Organization Address [facility] Phone Number [address] [address] CENTER Iron, TIBC, % sat. (without ferritin) (11/20/2018 3:56 AM CDT) Iron 33.0 (L) 40.0 - 160.0 ug/dL [facility] TIBC 161 (L) 250 - 450 ug/dL [facility] Iron % Saturation 20 20 - 55 % [facility] Specimen Blood Performing Organization Address City/[facility] Cent[facility]ode Phone Number [address] [phone] CENTER Reticulocyte count (11/20/2018 3:56 AM CDT) % Retic 3.5 (H) 0.5 - 1.8 % [facility] Specimen Blood Performing Organization Address City/State/Zipcode Phone Number [address] [address] [phone] [place] Ferritin (11/20/2018 3:56 AM CDT) Ferritin 162 5 - 275 ng/mL [facility] Specimen Blood Performing Organization Address City/State/Zipcode Phone Number [address] [address] [place] HEMODIALYSIS INPATIENT (11/19/2018 9:58 PM CDT) Narrative Performed At Alivia Hansen RN 11/19/20189:58 PM 3 hours HD completed. Net UF of 2.5 L. Pt tolerated tx well. Reports given to primary RN. Lab Results Component Value Date GLUCOSE 135 (H) 11/19/2018 CALCIUM 8.1 (L) 11/19/2018 NA 131 (L) 11/19/2018 K 4.2 11/19/2018 CO2 23 11/19/2018 CL 98 11/19/2018 BUN 38 (H) 11/19/2018 CREATININE 2.92 (H) 11/19/2018 Lab Results Component Value Date WBC 8.6 11/19/2018 HGB 7.7 (L) 11/19/2018 HCT 24.6 (L) 11/19/2018 MCV 86.3 11/19/2018 PLT 176 11/19/2018 Lab Results Component Value Date HEPBSAG Nonreactive 11/15/2018 Lab Results Component Value Date HEPBSAB <8.0 12/20/2015 No Known Allergies No chief complaint on file. Active Ambulatory Problems Diagnosis Date Noted Cirrhosis, Risk of 01/05/2013 Melena 01/05/2013 Congestive heart failure (HCC) 01/05/2013 Abnormal liver enzymes 01/05/2013 Screening for cancer 01/05/2013 Coronary artery disease 01/05/2013 GI bleed 01/05/2013 Alcohol use 09/02/2013 Overweight 09/02/2013 Hyperlipidemia 09/02/2013 Renal insufficiency 09/02/2013 Fatty liver 09/02/2013 Pruritus 10/25/2015 Resolved Ambulatory Problems Diagnosis Date Noted GI bleeding 01/05/2013 CHF (congestive heart failure) (HCC) 01/11/2013 Past Medical History: Diagnosis Date Atrial fibrillation (HCC) Blood transfusion without reported diagnosis Cancer (HCC) CHF (congestive heart failure) (HCC) Coronary artery disease Gout Heart attack (HCC) Hypertension Infarction of heart 2000, 2009 Reflux Past Surgical History: Procedure Laterality Date CATARACT EXTRACTION COLONOSCOPY01/07/2013 Procedure: COLONOSCOPY;Surgeon: Dina Berry MD; Location: [facility];Service: Gastroenterology;Laterality: N/A; COLONOSCOPY N/A 08/02/2018 Procedure: COLONOSCOPY;Surgeon: Skyler Carrillo MD;Location: [facility];Service: Gastroenterology;Laterality: N/A; CORONARY ANGIOPLASTY WITH STENT [id number] and 2009 2000 ENTEROSCOPY,BIOPSY N/A 11/15/2018 Procedure: ENTEROSCOPY,BIOPSY;Surgeon: Vero Pace MD; Location: [facility];Service: Gastroenterology;Laterality: N/A;ENTEROSCOPY with Anesthesia EYE SURGERY Bilateral 2008 HERNIA REPAIR hernia repair R & L CATH01/12/2013 Procedure: R & L CATH;Surgeon: Reynaldo Naylor MD;Location: [facility];Service: Cardiology;Laterality: Bilateral; SKIN BIOPSY back melanoma UPPER ENDOSCOPY01/06/2013 Procedure: UPPER ENDOSCOPY;Surgeon: Dina Berry MD;Location: [facility];Service: Gastroenterology; Laterality: N/A;UPPER ENDOSCOPY UPPER ENDOSCOPY N/A 08/02/2018 Procedure: UPPER ENDOSCOPY;Surgeon: Skyler Carrillo MD; Location: [facility];Service: Gastroenterology;Laterality: N/A; Alivia Hansen RN C-Reactive Protein (11/19/2018 10:14 AM CDT) CRP 12.99 (H) 0.00 - 0.50 mg/dL [facility] Specimen Blood Performing Organization Address City/State/Zipcode Phone Number [place] [phone] [place] [address] CENTER XR knee 1 or 2 views left (11/19/2018 9:54 AM CDT) Specimen Narrative Performed At FINAL REPORT [employer] RIS TECHNIQUE: Frontal and lateral and oblique radiographs of both knees dated 11/19/2018 HISTORY: Knee pain, gout COMPARISON: None. FINDINGS: No fracture or dislocation in either knee. Bones are osteopenic. There are small bilateral suprapatellar joint effusions. No bone erosion or soft tissue nodule seen. No radiodense foreign body or subcutaneous emphysema. IMPRESSION: No fracture or dislocation in either knee. Small bilateral suprapatellar joint effusions. Signed: Jean-Paul Santos MD Report Verified Date/Time:11/19/2018 10:15:39 Reading Location: [facility] Radiology Reading Room Procedure Note Interface, External Ris In - 11/19/2018 10:17 AM CDT FINAL REPORT TECHNIQUE: Frontal and lateral and oblique radiographs of both knees dated 11/19/2018 HISTORY: Knee pain, gout COMPARISON: None. FINDINGS: No fracture or dislocation in either knee. Bones are osteopenic. There are small bilateral suprapatellar joint effusions. No bone erosion or soft tissue nodule seen. No radiodense foreign body or subcutaneous emphysema. IMPRESSION: No fracture or dislocation in either knee. Small bilateral suprapatellar joint effusions. Signed: Jean-Paul Santos MD Report Verified Date/Time: 11/19/2018 10:15:39 Reading Location: [facility] Radiology Reading Room Performing Organization Address City/State/Zipcode Phone Number [facility] RIS XR knee 1 or 2 views right (11/19/2018 9:46 AM CDT) Specimen Narrative Performed At FINAL REPORT [employer] TECHNIQUE: Frontal and lateral and oblique radiographs of both knees dated 11/19/2018 HISTORY: Knee pain, gout COMPARISON: None. FINDINGS: No fracture or dislocation in either knee. Bones are osteopenic. There are small bilateral suprapatellar joint effusions. No bone erosion or soft tissue nodule seen. No radiodense foreign body or subcutaneous emphysema. IMPRESSION: No fracture or dislocation in either knee. Small bilateral suprapatellar joint effusions. Signed: Jean-Paul Santos MD Report Verified Date/Time:11/19/2018 10:15:39 Reading Location: [facility] Radiology Reading Room Procedure Note Interface, External Ris In - 11/19/2018 10:17 AM CDT FINAL REPORT TECHNIQUE: Frontal and lateral and oblique radiographs of both knees dated 11/19/2018 HISTORY: Knee pain, gout COMPARISON: None. FINDINGS: No fracture or dislocation in either knee. Bones are osteopenic. There are small bilateral suprapatellar joint effusions. No bone erosion or soft tissue nodule seen. No radiodense foreign body or subcutaneous emphysema. IMPRESSION: No fracture or dislocation in either knee. Small bilateral suprapatellar joint effusions. Signed: Jean-Paul Santos MD Report Verified Date/Time: 11/19/2018 10:15:39 Reading Location: [facility] Radiology Reading Room Performing Organization Address City/State/[facility] Phone Number GE RIS ECG 12 lead (11/17/2018 7:01 PM CDT)Only the most recent of2 resultswithin the time period is included. Specimen Narrative Performed At Ventricular Rate 102 BPM GE MUSE Atrial Rate 90 BPM QRS Duration 104 ms Q-T Interval 398 ms QTC Calculation(Bazett) 518 ms R [place] -25 degrees T [place] 48 degrees Atrial fibrillation with rapid ventricular response Low voltage QRS Abnormal ECG When compared with ECG of 15-NOV-2018 04:23, No significant change was found Confirmed by Juan ONEAL MICHAEL ([id number]) on 11/18/2018 7:46:11 AM Procedure Note Interface, External Ris In - 11/18/2018 7:46 AM CDT Ventricular Rate 102 BPM Atrial Rate 90 BPM QRS Duration 104 ms Q-T Interval 398 ms QTC Calculation(Bazett) 518 ms R [place] -25 degrees T [place] 48 degrees Atrial fibrillation with rapid ventricular response Low voltage QRS Abnormal ECG When compared with ECG of 15-NOV-2018 04:23, No significant change was found Confirmed by Juan ONEAL MICHAEL ([id number]) on 11/18/2018 7:46:11 AM Performing Organization Address City/State/Zipcode Phone Number [employer] TRANSFUSION SERVICE REPORT - SCAN (11/17/2018 6:02 PM CDT)Only the most recent of5 resultswithin the time period is included. Narrative Performed At Hemoglobin and hematocrit (11/17/2018 3:31 PM CDT)Only the most recent of11 resultswithin the time period is included. Hemoglobin 9.4 (L) 13.7 - 17.5 GM/DL [facility] Hematocrit 31.4 (L) 40.1 - 51.0 % [facility] Specimen Blood Performing Organization Address City/State/Zipcode Phone Number [facility] [address] [place] [address] [phone] CENTER [place] GI bleed study (11/17/2018 2:16 PM CDT) Specimen Narrative Performed At FINAL REPORT [facility] PROCEDURE: HEMORRHAGE STUDY with RBCs CPT CODE: 04494 INDICATION: Gastrointestinal Bleeding PROTOCOL: 22.0 mCi ofTc-99m was injected intravenously as labeled autologous red blood cells. Flow images of the abdomen were obtained, followed by serial images for approximately 60 minutes. Additional images were obtained 7 and 29.5 hours after tracer injection. FINDINGS:There is physiological tracer distribution in the blood pool on initial flow and 1 hour imaging. Minimal activity is seen in the left kidney on delayed 7 and 29.5 hours imaging. No definitive, abnormal accumulation of tracer is visualized within the abdomen. IMPRESSION:Negative study. No evidence of localized, active or interval hemorrhage is seen. Signed: Malachi Villalpando MD Report Verified Date/Time:11/17/2018 15:07:00 Reading Location: [address] Reading Room Procedure Note Interface, External Ris In - 11/17/2018 3:09 PM CDT FINAL REPORT PROCEDURE: HEMORRHAGE STUDY with RBCs CPT CODE: [id number] INDICATION: Gastrointestinal Bleeding PROTOCOL: 22.0 mCi of Tc-99m was injected intravenously as labeled autologous red blood cells. Flow images of the abdomen were obtained, followed by serial images for approximately 60 minutes. Additional images were obtained 7 and 29.5 hours after tracer injection. FINDINGS: There is physiological tracer distribution in the blood pool on initial flow and 1 hour imaging. Minimal activity is seen in the left kidney on delayed 7 and 29.5 hours imaging. No definitive, abnormal accumulation of tracer is visualized within the abdomen. IMPRESSION: Negative study. No evidence of localized, active or interval hemorrhage is seen. Signed: Malachi Villalpando MD Report Verified Date/Time: 11/17/2018 15:07:00 Reading Location: [address] Reading Room Performing Organization Address [facility] Phone Number GE RIS Vancomycin level, random (11/17/2018 8:15 AM CDT)Only the most recent of2 resultswithin the time period is included. Vancomycin Rm 16.1 ug/mL [facility] Specimen Blood Narrative Performed At Reference Range: No Normals [facility] Performing Organization Address [facility] Phone Number [facility] [address] [id number] CENTER Prepare Leuko-Red PLT (11/16/2018 11:54 PM CDT) Unit ABO AB Pos [facility] [place] UNIT NUMBER [id number] [facility] [place] Status TX_TIMEINCHART [facility] [place] Blood Bank Product PLATELETS [facility] [place] PRODUCT CODE [id number] [facility] [place] Specimen Blood Performing Organization Address [facility] Phone Number [facility] [place] Prepare Leuko-Red RBC (11/16/2018 11:54 PM CDT)Only the most recent of3 resultswithin the time period is included. CROSSMATCH COMPATIBLE [facility] TX Unit ABO O Pos [facility] TX UNIT NUMBER [id number] [facility] TX Status TX_TIMEINCHART [facility] [place] Blood Bank Product RED BLOOD CELLS [facility] [place] PRODUCT CODE [id number] [facility] [place] Specimen Other Performing Organization Address [facility] Phone Number [facility] [place] Prepare plasma (11/16/2018 11:54 PM CDT) Unit ABO O Pos [facility] [place] UNIT NUMBER [id number] [facility] TX Status TX_TIMEINCHART [facility] [place] Blood Bank Product FFP [place] PRODUCT CODE [id number] [facility] [place] Specimen Blood Performing Organization Address [facility] Phone Number [facility] [place] Platelet Aggregation: Function Screen (11/16/2018 7:59 PM CDT) Weak ADP 90 60 - 91 % [facility] Plt. Function Screen 60-100% indicates [facility] Interpretation normal platelet [facility] function Pathologist: Kyle Man MD [facility] (electronic [facility] signature) Platelets 215 150 - 450 K/CU MM [facility] Specimen Blood Narrative Performed At Platelet Function Screen results may be [facility] falsely low with platelet counts <100,000/cu mm. xarelto Performing Organization Address [facility] Phone Number [address] [address] CENTER PT/aPTT (11/16/2018 6:43 PM CDT)Only the most recent of2 resultswithin the time period is included. Protime 15.1 (H) 11.9 - 14.2 seconds [facility] INR 1.2 <=5.9 [facility] PTT 42.8 (H) 22.5 - 36.0 seconds [facility] Specimen Blood Narrative Performed At Effective 10/27/2018: PT Reference Range [facility] Change New: 11.9-14.2Previous: 11.7-14.7 RECOMMENDED COUMADIN/WARFARIN INR THERAPY RANGES STANDARD DOSE: 2.0-3.0Includes: PROPHYLAXIS for venous thrombosis, systemic embolization; TREATMENT for venous thrombosis and/or pulmonary embolus. HIGH RISK: Target INR is 2.5-3.5 for patients wiht mechanical heart valves. Performing Organization Address [facility] Phone Number [address] [phone] [facility] Heparin Assay - Unfractionated (11/16/2018 6:43 PM CDT) Anti 10A-Unfractionated 0.12 (L) 0.30 - 0.70 u/ml [facility] Heparin MEDICAL [facility] Specimen Blood Narrative Performed At Recommendations for Monitoring Unfractionated [facility] Heparin Therapeutic Range: 0.3-0.7 u/mL with continuous IV infusion Performing Organization Address [facility] Phone Number [address] [phone] [facility] Heparin Assay - Low Molecular Weight (11/16/2018 6:43 PM CDT) Anti 10A-Lovenox 0.10 (L) 0.60 - 2.00 u/ml [facility] Specimen Blood Narrative Performed At Anti-Factor 10-A Level (Heparin Assay for Low [facility] Molecular Weight Heparin) Monitoring Guidelines: Blood samples should be obtained 4 hours post subcutaneous injection (time of Peak level) Therapeutic Peak Levels: 0.6-1.0 units/mLtwice daily enoxaparin 1.0-2.0 units/mLonce daily enoxaparin Ref: CHEST 2012;141:[id number] Performing Organization Address [facility] Phone Number [address] [address] [facility] Thromboelastograph (TEG) (11/16/2018 9:46 AM CDT)Only the most recent of2 resultswithin the time period is included. TEG Activated Clotting Time 4.3 4.0 - 7.0 minutes [facility] TEG Fibrinogen Activity 77.9 (H) 61.0 - 73.0 degrees [facility] TEG Platelet Aggregation 73.2 (H) 55.0 - 65.0 MM [facility] TEG Fibrinolysis 0.0 0.0 - 5.0 % [facility] TEG-H Activated Clotting Time 4.4 4.0 - 7.0 minutes [facility] TEG-H Fibrinogen Activity 77.1 (H) 61.0 - 73.0 degrees [facility] TEG-H Platelet Aggregation 69.6 (H) 55.0 - 65.0 MM [facility] TEG-H Fibrinolysis 0.0 0.0 - 5.0 % [facility] Specimen Blood Performing Organization Address [facility] Phone Number [address] [address] [facility] REPORT OF PROCEDURE - ENDOSCOPY URL (11/15/2018 6:13 PM CDT) Narrative Performed At Transfuse Leuko-Red RBC (11/15/2018 4:03 PM CDT)Only the most recent of6 resultswithin the time period is included.Transfuse Leuko-Red PLT (11/15/2018 2 :08 PM CDT)Only the most recent of2 resultswithin the time period is included.Hepatitis B surface antigen (11/15/2018 9:07 AM CDT) hepatitis B Surface Ag Nonreactive Nonreactive [facility] Specimen Blood Narrative Performed At For chronic HD patients, draw HBsAg with each [facility] admission then every 30 days. Performing Organization Address [facility] Phone Number [address] [address] CENTER Ammonia (11/15/2018 9:07 AM CDT) Ammonia 34 18 - 72 mol/L [facility] Specimen Blood Performing Organization Address [facility] Phone Number [address] [address] CENTER Manual Differential (11/15/2018 5:01 AM CDT)Only the most recent of3 resultswithin the time period is included. % Neutros 91 % [facility] % Lymphs 3 % [facility] % Monos 3 % [facility] % Eos 3 % [facility] # Neutros 12.56 (H) 1.78 - 5.38 K/ul [facility] # Lymphs 0.41 (L) 1.32 - 3.57 K/ul [facility] # Monos 0.41 0.30 - 0.82 K/uL [facility] # Eos 0.41 0.04 - 0.54 K/uL [facility] Total Counted 100 [facility] WBC Morphology Normal [facility] Platelet Morphology Normal [facility] Polychromasia 1+ few [facility] Hypochromia 1+ few [facility] Anisocytosis 1+ few [facility] Microcytes 1+ few [facility] Poikilocytes 1+ few [facility] Ovalocytes 1+ few [facility] Artifact Present [facility] Platelet Conc Adequate [facility] Specimen Blood Narrative Performed At Received comment: [facility] User comments: Slide comments: Performing Organization Address City/State/Zipcode Phone Number [facility] [address] [place] [address] [phone] CENTER Transfuse plasma (11/15/2018 1:48 AM CDT)Only the most recent of2 resultswithin the time period is included.Urinalysis w/Microscopic + Reflex to Culture (11/14/2018 10:57 PM CDT) Color, UA Yellow [facility] Clarity, UA Hazy [facility] Specific [place], UA 1.012 1.001 - 1.035 [facility] pH, UA 5.0 5.0 - 8.0 [facility] Protein, UA 10 mg/dL (A) Negative [facility] Glucose, UA Negative Negative [facility] Ketones, UA Negative Negative [facility] Bilirubin, UA Negative Negative [facility] Blood, UA Moderate (A) Negative [facility] Nitrite, UA Negative Negative [facility] Leukocytes, UA Large (A) Negative [facility] Urobilinogen, UA 0.2 0.2 - 1.0 mg/dL [facility] RBC, UA 240 /HPF [facility] WBC, UA 87 /HPF [facility] Mucus Occasional [facility] Squam Epithel, UA 1 /HPF [facility] Hyaline Casts, UA 13 /LPF [facility] Granular Casts, UA 2 /LPF [facility] Specimen Source [facility] Specimen Urine Performing Organization Address City/State/Zipcode Phone Number [address] [address] [facility] Urine culture (11/14/2018 10:57 PM CDT) Result No growth [facility] Specimen Urine Performing Organization Address City/State/Zipcode Phone Number [address] [address] [facility] Procalcitonin (11/14/2018 10:44 PM CDT) Procalcitonin 1.37 (H) <0.05 ng/mL [facility] Specimen Blood Narrative Performed At SEPSIS RISK (ng/mL) [facility] Low:0.05-0.50 Intermediate: 0.51-2.00 High: >=2.01 Performing Organization Address [facility] Phone Number [address] [phone] CENTER Lactic acid, venous (11/14/2018 10:44 PM CDT) Lactate, Venous 0.7 0.5 - 2.2 mmol/L [facility] Specimen Blood Performing Organization Address [facility] Phone Number [address] [address] CENTER Blood Culture - Routine (Right Venipuncture) (11/14/2018 10:13 PM CDT)Only the most recent of2 resultswithin the time period is included. Result No growth in 5 days [facility] Specimen Blood Performing Organization Address [facility] Phone Number [address] [address] CENTER Type and screen, automated (11/14/2018 8:09 PM CDT)Only the most recent of2 resultswithin the time period is included. ABO/RH AUTOMATED (BEAKER) O POSITIVE [facility] Ab Scrn NEGATIVE [facility] Specimen Blood Performing Organization Address [facility] Phone Number [address] [address] XR chest 1 view portable / bedside (11/14/2018 7:49 PM CDT)Only the most recent of2 resultswithin the time period is included. Specimen Narrative Performed At FINAL REPORT [facility] EXAMINATION: AP PORTABLE CHEST RADIOGRAPH CLINICAL INDICATION: Central line placement IMPRESSION: Compared with 08/03/2018. Tip of the right-sided dialysis catheter projects over the right atrium. Tip of the left jugular central line projects over the superior mediastinum just to right mid of midline. The heart is enlarged as before. Mediastinal contours are grossly similar allowing for differences in technique and positioning. Opacities are noted in both lungs with a relatively symmetric predominantly central distribution. Although a component may reflect atelectasis, pulmonary edema should also be considered. A pneumonia or sequela from aspiration cannot be excluded. No evidence of a large pleural effusion or pneumothorax. Signed: Berna Robles MD Report Verified Date/Time:11/14/2018 21:29:04 Reading Location: [address] Reading Room Procedure Note Interface, External Ris In - 11/14/2018 9:31 PM CDT FINAL REPORT EXAMINATION: AP PORTABLE CHEST RADIOGRAPH CLINICAL INDICATION: Central line placement IMPRESSION: Compared with 08/03/2018. Tip of the right-sided dialysis catheter projects over the right atrium. Tip of the left jugular central line projects over the superior mediastinum just to right mid of midline. The heart is enlarged as before. Mediastinal contours are grossly similar allowing for differences in technique and positioning. Opacities are noted in both lungs with a relatively symmetric predominantly central distribution. Although a component may reflect atelectasis, pulmonary edema should also be considered. A pneumonia or sequela from aspiration cannot be excluded. No evidence of a large pleural effusion or pneumothorax. Signed: Berna Robles MD Report Verified Date/Time: 11/14/2018 21:29:04 Reading Location: [address] Reading Room Performing Organization Address City/State/Zipcode Phone Number [facility] Central Line Insertion (11/14/2018 7:16 PM CDT) Narrative Performed At [facility] 11/14/20187:17 PM Procedure Note Procedure: Internal Jugular Central Venous Catheter with Ultrasound Guidance Indication: Hypovolemic shock Consent: none given critical nature of procedure Procedure Summary: A time-out was performed. The patient's left neck region was prepped and draped in sterile fashion using chlorhexidine scrub. Anesthesia was achieved with 1% lidocaine. The left internal jugular vein was accessed under ultrasound guidance using a finder needle. Venous blood was withdrawn and a guidewire was advanced through the needle. A small incision was made with a 10 blade scalpel and the needle was exchanged for a dilator over the guidewire until appropriate dilation was obtained. The dilator was removed and an 7 Chinese central venous triple lumen catheter was advanced over the guidewire and secured into place with sutures. At time of procedure completion, all ports aspirated and flushed properly. Post-procedure x-ray ordered and pending at this time. Complications: none Estimated Blood Loss: Minimal, <5mL Andres Martinez MD Clinical Fellow in Cardiology, PGY5 [facility] Office: [phone] | Pager: [phone] Prothrombin time/INR (11/14/2018 6:28 PM CDT) Protime 17.9 (H) 11.9 - 14.2 seconds [facility] INR 1.6 <=5.9 [facility] Specimen Blood Narrative Performed At Effective 10/27/2018: PT Reference Range [facility] Change New: 11.9-14.2Previous: 11.7-14.7 RECOMMENDED COUMADIN/WARFARIN INR THERAPY RANGES STANDARD DOSE: 2.0-3.0Includes: PROPHYLAXIS for venous thrombosis, systemic embolization; TREATMENT for venous thrombosis and/or pulmonary embolus. HIGH RISK: Target INR is 2.5-3.5 for patients wiht mechanical heart valves. Performing Organization Address [facility] Phone Number [address] [phone] CENTER EKG-SCANNED (08/06/2018 10:30 AM [facility]) Narrative Performed At B-type Natriuretic Factor (BNP) (08/03/2018 6:04 AM [facility]) BNP 646 (H) 0 - 100 pg/mL [facility] Specimen Blood Performing Organization Address [facility]/Zipcode Phone Number [address] [address] CENTER REPORT OF PROCEDURE - ENDOSCOPY URL (08/02/2018 4:51 PM [facility]) Narrative Performed At REPORT OF PROCEDURE - ENDOSCOPY URL (08/02/2018 4:39 PM [facility]) Narrative Performed At CBC (Hemogram only) (08/02/2018 6:41 AM [facility]) WBC 10.6 (H) 3.5 - 10.5 K/L [facility] RBC 2.97 (L) 4.63 - 6.08 M/L [facility] Hemoglobin 7.9 (L) 13.7 - 17.5 GM/DL [facility] Hematocrit 25.7 (L) 40.1 - 51.0 % [facility] MCV 86.5 79.0 - 92.2 fL [facility] MCH 26.6 25.7 - 32.2 pg [facility] MCHC 30.7 (L) 32.3 - 36.5 GM/DL [facility] RDW 16.5 (H) 11.6 - 14.4 % [facility] Platelets 319 150 - 450 K/CU MM [facility] MPV 10.4 9.4 - 12.4 fL [facility] nRBC 1 (H) 0 - 0 /100 WBC [facility] Specimen Blood Performing Organization Address City/[facility]/Zipcode Phone Number [address] [address] [phone] CENTER Urea Nitrogen, random urine (08/01/2018 1:01 PM [facility]) Urea Nitrogen, Ur 694 mg/dL [facility] Specimen Urine Narrative Performed At Reference Range: No Normals [facility] Performing Organization Address [facility] Phone Number [address] [address] CENTER Sodium, random urine (08/01/2018 1:01 PM [facility]) Sodium Urine 70 meq/L [facility] Specimen Urine Narrative Performed At Reference Range: No Normals [facility] Performing Organization Address [facility] [place] [address] [facility] Creatinine, random urine (08/01/2018 1:01 PM [facility]) Creatinine, Ur 40.1 mg/dL [facility] Specimen Urine Narrative Performed At Reference Range: No Normals [facility] Performing Organization Address [facility] [place] [address] [phone] [facility] Urinalysis w/Microscopic (08/01/2018 1:01 PM [facility]) Color, UA Light Yellow [facility] Clarity, UA Clear [facility] Specific [place], UA 1.010 1.001 - 1.035 [facility] pH, UA 6.5 5.0 - 8.0 [facility] Protein, UA Negative Negative [facility] Glucose, UA Negative Negative [facility] Ketones, UA Negative Negative [facility] Bilirubin, UA Negative Negative [facility] Blood, UA Negative Negative [facility] Nitrite, UA Negative Negative [facility] Leukocytes, UA Negative Negative [facility] Urobilinogen, UA 0.2 0.2 - 1.0 mg/dL [facility] RBC, UA 0 /HPF [facility] WBC, UA 0 /HPF [facility] Specimen Source [facility] Specimen Urine Performing Organization Address City/[facility]/Zipcode Phone Number [facility] [address] [place] [phone] CENTER after 02/03/2018 Insurance Payer Benefit Plan / Subscriber ID Type Phone Address Group MEDICARE MEDICARE A B xxxxxxxxxxx Medicare BLUE CROSS/BLUE BCBS INDEMNITY PA xxxxxxxxxxxx PPO [phone] [address] [place] [address] (Work) Advance Directives For more information, please contact:[facility] [place], [place] [phone] Code Status Date Activated Date Inactivated Comments Full Code 11/14/2018 6:15 PM 11/24/2018 1:27 PM This code status was determined by: Patient Full Code 08/01/2018 3:40 AM 08/03/2018 8:32 PM This code status was determined by: Patient Code ONE 01/11/2013 7:33 PM 01/13/2013 7:59 PM All possible means of support including;cardiac massage, mechanical ventilation, and defibrillation will be used to support life.
--- OUTSIDE RECORDS SUMMARY | 2019-02-04 14:25 | XMS REPORT ---
:1945 [facility], [facility] [address] [place] [address] Care Team Providers Name Role Phone ZOLTAN LAWRENCE Unavailable Unavailable ARIA NGUYEN Unavailable Unavailable Payers Payer Name Policy Type Policy Number Effective Date Expiration Date Problems This patient has no known problems. Allergies, Adverse Reactions, Alerts Allergy Allergy Status Severity Reaction(s) Onset Inactive Treating Comments Name Type Date Date Clinician No Known DA Active U 2018-05 Allergies 00:00:0 0 Medications This patient has no known medications. Results Test Description Test Time Test Comments Text Results Atomic Results Result Comments POCT-GLUCOSE METER 2018-11-24 08:36:00 Test Item Value Reference Range Comments POC-GLUCOSE METER (BEAKER) (test 87 mg/dL 70-110 TESTED AT [facility] [address] [facility] sssh=6731) [facility] [address] [id number] 06:44:00 Test Item Value Reference Range Comments MAGNESIUM (BEAKER) (test 1.9 mg/dL 1.6-2.6 Specimen slightly hemolyzed jgqd=699) BASIC METABOLIC [id number] 06:44:00 Test Item Value Reference Range Comments SODIUM (BEAKER) (test 140 meq/L 136-145 oujy=578) POTASSIUM (BEAKER) (test 4.3 meq/L 3.5-5.1 Specimen slightly xtrh=431) hemolyzed CHLORIDE (BEAKER) (test 106 meq/L 98-107 kmjg=419) CO2 (BEAKER) (test 26 meq/L 22-29 dopg=894) BLOOD UREA NITROGEN 37 mg/dL 7-21 (BEAKER) (test njkd=587) CREATININE (BEAKER) (test 2.17 mg/dL 0.57-1.25 Specimen slightly vjat=643) hemolyzed GLUCOSE RANDOM (BEAKER) 96 mg/dL 70-105 (test lffe=764) CALCIUM (BEAKER) (test 8.2 mg/dL 8.4-10.2 wdkt=908) EGFR (BEAKER) (test 30 mL/min/1.73 sq m ESTIMATED GFR IS NOT icwm=9756) ACCURATE CREATININE CLEARANCE IN PREDICTING GLOMERULAR FILTRATION RATE. ESTIMATED GFR IS NOT APPLICABLE FOR DIALYSIS PATIENTS. CBC W/PLT COUNT & AUTO [id number] 06:38:00 Test Item Value Reference Range Comments WHITE BLOOD CELL COUNT (BEAKER) (test izoe=180) 12.5 K/ L 3.5-10.5 RED BLOOD CELL COUNT (BEAKER) (test nyow=460) 3.15 M/ L 4.63-6.08 HEMOGLOBIN (BEAKER) (test cvvt=800) 8.6 GM/DL 13.7-17.5 HEMATOCRIT (BEAKER) (test jdyc=347) 28.6 % 40.1-51.0 MEAN CORPUSCULAR VOLUME (BEAKER) (test wqgc=227) 90.8 fL 79.0-92.2 MEAN CORPUSCULAR HEMOGLOBIN (BEAKER) (test 27.3 pg 25.7-32.2 hjrs=363) MEAN CORPUSCULAR HEMOGLOBIN CONC (BEAKER) (test 30.1 GM/DL 32.3-36.5 brtv=289) RED CELL DISTRIBUTION WIDTH (BEAKER) (test 24.3 % 11.6-14.4 cthn=676) PLATELET COUNT (BEAKER) (test avtr=086) 427 K/CU MM 150-450 MEAN PLATELET VOLUME (BEAKER) (test jtwh=034) 9.5 fL 9.4-12.4 NUCLEATED RED BLOOD CELLS (BEAKER) (test 0 /100 WBC 0-0 algc=319) NEUTROPHILS RELATIVE PERCENT (BEAKER) (test 73 % oxjb=470) LYMPHOCYTES RELATIVE PERCENT (BEAKER) (test 8 % slfe=523) MONOCYTES RELATIVE PERCENT (BEAKER) (test 8 % kcrx=583) EOSINOPHILS RELATIVE PERCENT (BEAKER) (test 8 % nmkf=744) BASOPHILS RELATIVE PERCENT (BEAKER) (test 1 % gvqa=203) NEUTROPHILS ABSOLUTE COUNT (BEAKER) (test 9.15 K/ L 1.78-5.38 tkln=081) LYMPHOCYTES ABSOLUTE COUNT (BEAKER) (test 1.03 K/ L 1.32-3.57 msuj=831) MONOCYTES ABSOLUTE COUNT (BEAKER) (test 0.98 K/ L 0.30-0.82 ckpa=623) EOSINOPHILS ABSOLUTE COUNT (BEAKER) (test 1.02 K/ L 0.04-0.54 dlnq=103) BASOPHILS ABSOLUTE COUNT (BEAKER) (test 0.07 K/ L 0.01-0.08 uwjs=396) IMMATURE GRANULOCYTES-RELATIVE PERCENT (BEAKER) 2 % 0-1 (test pknt=7747) POCT-GLUCOSE [id number] 21:29:00 Test Item Value Reference Range Comments POC-GLUCOSE METER (BEAKER) 106 mg/dL 70-110 TESTED AT [address] (test wdvm=8768) [facility] [address] POCT-GLUCOSE [id number] 17:30:00 Test Item Value Reference Range Comments POC-GLUCOSE METER (BEAKER) 100 mg/dL 70-110 TESTED AT [address] (test eadd=7861) [facility] [address] CALCIUM, [id number] 05:57:00 Test Item Value Reference Range Comments CALCIUM IONIZED (BEAKER) (test wzia=564) 1.02 mmol/L 1.12-1.27 PH, BLOOD (BEAKER) (test rdbt=7456) 7.48 [id number] 05:31:00 Test Item Value Reference Range Comments PHOSPHORUS (BEAKER) (test xuzh=525) 3.2 mg/dL 2.3-4.7 [id number] 05:31:00 Test Item Value Reference Range Comments MAGNESIUM (BEAKER) (test hslm=829) 1.7 mg/dL 1.6-2.6 COMPREHENSIVE METABOLIC [id number] 05:31:00 Test Item Value Reference Range Comments TOTAL PROTEIN (BEAKER) 5.1 gm/dL 6.0-8.3 (test urly=402) ALBUMIN (BEAKER) (test 2.9 g/dL 3.5-5.0 ffkf=3973) ALKALINE PHOSPHATASE 286 U/L 40-150 (BEAKER) (test tfxs=539) BILIRUBIN TOTAL (BEAKER) 1.1 mg/dL 0.2-1.2 (test tevb=084) SODIUM (BEAKER) (test 141 meq/L 136-145 nyfj=072) POTASSIUM (BEAKER) (test 3.6 meq/L 3.5-5.1 ldic=775) CHLORIDE (BEAKER) (test 106 meq/L 98-107 fdao=826) CO2 (BEAKER) (test 27 meq/L 22-29 cykf=119) BLOOD UREA NITROGEN 30 mg/dL 7-21 (BEAKER) (test gmdv=434) CREATININE (BEAKER) (test 1.88 mg/dL 0.57-1.25 zezf=571) GLUCOSE RANDOM (BEAKER) 107 mg/dL 70-105 (test kmta=620) CALCIUM (BEAKER) (test 8.2 mg/dL 8.4-10.2 rapq=511) AST (SGOT) (BEAKER) (test 44 U/L 5-34 dodl=079) ALT (SGPT) (BEAKER) (test 46 U/L 6-55 swtg=999) EGFR (BEAKER) (test 35 mL/min/1.73 sq m ESTIMATED GFR IS NOT elkw=1062) ACCURATE CREATININE CLEARANCE IN PREDICTING GLOMERULAR FILTRATION RATE. ESTIMATED GFR IS NOT APPLICABLE FOR DIALYSIS PATIENTS. CBC W/PLT COUNT & AUTO [id number] 05:18:00 Test Item Value Reference Range Comments WHITE BLOOD CELL COUNT (BEAKER) (test fzsh=677) 15.9 K/ L 3.5-10.5 RED BLOOD CELL COUNT (BEAKER) (test neuj=502) 3.18 M/ L 4.63-6.08 HEMOGLOBIN (BEAKER) (test qlcn=534) 8.6 GM/DL 13.7-17.5 HEMATOCRIT (BEAKER) (test adws=469) 28.2 % 40.1-51.0 MEAN CORPUSCULAR VOLUME (BEAKER) (test zlse=714) 88.7 fL 79.0-92.2 MEAN CORPUSCULAR HEMOGLOBIN (BEAKER) (test 27.0 pg 25.7-32.2 fekx=641) MEAN CORPUSCULAR HEMOGLOBIN CONC (BEAKER) (test 30.5 GM/DL 32.3-36.5 domo=717) RED CELL DISTRIBUTION WIDTH (BEAKER) (test 24.2 % 11.6-14.4 tmas=529) PLATELET COUNT (BEAKER) (test gamd=370) 407 K/CU MM 150-450 MEAN PLATELET VOLUME (BEAKER) (test fvyl=082) 9.7 fL 9.4-12.4 NUCLEATED RED BLOOD CELLS (BEAKER) (test 0 /100 WBC 0-0 vytp=218) NEUTROPHILS RELATIVE PERCENT (BEAKER) (test 80 % ewty=538) LYMPHOCYTES RELATIVE PERCENT (BEAKER) (test 7 % vtic=891) MONOCYTES RELATIVE PERCENT (BEAKER) (test 9 % xarb=512) EOSINOPHILS RELATIVE PERCENT (BEAKER) (test 3 % lovp=643) BASOPHILS RELATIVE PERCENT (BEAKER) (test 0 % jpnp=451) NEUTROPHILS ABSOLUTE COUNT (BEAKER) (test 12.74 K/ L 1.78-5.38 whtj=250) LYMPHOCYTES ABSOLUTE COUNT (BEAKER) (test 1.09 K/ L 1.32-3.57 leuj=259) MONOCYTES ABSOLUTE COUNT (BEAKER) (test 1.38 K/ L 0.30-0.82 qjxb=853) EOSINOPHILS ABSOLUTE COUNT (BEAKER) (test 0.49 K/ L 0.04-0.54 mvgv=678) BASOPHILS ABSOLUTE COUNT (BEAKER) (test 0.04 K/ L 0.01-0.08 hjoc=588) IMMATURE GRANULOCYTES-RELATIVE PERCENT (BEAKER) 1 % 0-1 (test czwk=1582) HEPATITIS B [id number] 20:06:00 Test Item Value Reference Range Comments HEPATITIS B CORE TOTAL ANTIBODY (BEAKER) (test Nonreactive Nonreactive xhie=110) HEPATITIS B SURFACE ANTIBODY (BEAKER) (test < mIU/mL <8.0 tguo=207) HEPATITIS B SURFACE ANTIGEN (2) (BEAKER) (test Nonreactive Nonreactive iiyo=8822) POCT-GLUCOSE [id number] 12:45:00 Test Item Value Reference Range Comments POC-GLUCOSE METER (BEAKER) 142 mg/dL 70-110 TESTED AT [address] (test jbze=1812) [facility] [address] POCT-GLUCOSE [id number] 07:50:00 Test Item Value Reference Range Comments POC-GLUCOSE METER (BEAKER) 106 mg/dL 70-110 TESTED AT [facility] [address] [facility] (test afqk=5735) [facility] [address] COMPREHENSIVE METABOLIC [id number] 04:41:00 Test Item Value Reference Range Comments TOTAL PROTEIN (BEAKER) 5.1 gm/dL 6.0-8.3 (test juhw=505) ALBUMIN (BEAKER) (test 2.9 g/dL 3.5-5.0 wyng=0445) ALKALINE PHOSPHATASE 296 U/L 40-150 (BEAKER) (test ivuk=121) BILIRUBIN TOTAL (BEAKER) 1.4 mg/dL 0.2-1.2 (test urus=689) SODIUM (BEAKER) (test 135 meq/L 136-145 gcoj=306) POTASSIUM (BEAKER) (test 4.8 meq/L 3.5-5.1 qbls=999) CHLORIDE (BEAKER) (test 103 meq/L 98-107 gosr=545) CO2 (BEAKER) (test 22 meq/L 22-29 loef=060) BLOOD UREA NITROGEN 61 mg/dL 7-21 (BEAKER) (test uyla=690) CREATININE (BEAKER) (test 2.93 mg/dL 0.57-1.25 ckcw=024) GLUCOSE RANDOM (BEAKER) 122 mg/dL 70-105 (test wbhd=649) CALCIUM (BEAKER) (test 7.9 mg/dL 8.4-10.2 rroa=975) AST (SGOT) (BEAKER) (test 61 U/L 5-34 jvmg=258) ALT (SGPT) (BEAKER) (test 52 U/L 6-55 eglk=106) EGFR (BEAKER) (test 21 mL/min/1.73 sq m ESTIMATED GFR IS NOT qxkq=2552) ACCURATE CREATININE CLEARANCE IN PREDICTING GLOMERULAR FILTRATION RATE. ESTIMATED GFR IS NOT APPLICABLE FOR DIALYSIS PATIENTS. [id number] 04:40:00 Test Item Value Reference Range Comments PHOSPHORUS (BEAKER) (test dnrq=400) 4.7 mg/dL 2.3-4.7 [id number] 04:40:00 Test Item Value Reference Range Comments MAGNESIUM (BEAKER) (test edea=187) 2.0 mg/dL 1.6-2.6 CBC W/PLT COUNT & AUTO [id number] 04:08:00 Test Item Value Reference Range Comments WHITE BLOOD CELL COUNT (BEAKER) (test bcks=598) 18.6 K/ L 3.5-10.5 RED BLOOD CELL COUNT (BEAKER) (test byvb=748) 3.15 M/ L 4.63-6.08 HEMOGLOBIN (BEAKER) (test mjzo=660) 8.6 GM/DL 13.7-17.5 HEMATOCRIT (BEAKER) (test tqua=553) 27.8 % 40.1-51.0 MEAN CORPUSCULAR VOLUME (BEAKER) (test euev=582) 88.3 fL 79.0-92.2 MEAN CORPUSCULAR HEMOGLOBIN (BEAKER) (test 27.3 pg 25.7-32.2 mdvv=877) MEAN CORPUSCULAR HEMOGLOBIN CONC (BEAKER) (test 30.9 GM/DL 32.3-36.5 pbmv=460) RED CELL DISTRIBUTION WIDTH (BEAKER) (test 24.9 % 11.6-14.4 tnam=603) PLATELET COUNT (BEAKER) (test vzac=728) 376 K/CU MM 150-450 MEAN PLATELET VOLUME (BEAKER) (test ktqz=524) 10.1 fL 9.4-12.4 NUCLEATED RED BLOOD CELLS (BEAKER) (test 0 /100 WBC 0-0 wead=964) NEUTROPHILS RELATIVE PERCENT (BEAKER) (test 85 % enmh=264) LYMPHOCYTES RELATIVE PERCENT (BEAKER) (test 5 % ctbi=593) MONOCYTES RELATIVE PERCENT (BEAKER) (test 7 % kdpe=074) EOSINOPHILS RELATIVE PERCENT (BEAKER) (test 1 % vbpu=038) BASOPHILS RELATIVE PERCENT (BEAKER) (test 0 % jpsb=540) NEUTROPHILS ABSOLUTE COUNT (BEAKER) (test 15.80 K/ L 1.78-5.38 dpif=552) LYMPHOCYTES ABSOLUTE COUNT (BEAKER) (test 1.00 K/ L 1.32-3.57 xmac=031) MONOCYTES ABSOLUTE COUNT (BEAKER) (test 1.35 K/ L 0.30-0.82 jyjm=569) EOSINOPHILS ABSOLUTE COUNT (BEAKER) (test 0.20 K/ L 0.04-0.54 uiiu=071) BASOPHILS ABSOLUTE COUNT (BEAKER) (test 0.02 K/ L 0.01-0.08 faed=864) IMMATURE GRANULOCYTES-RELATIVE PERCENT (BEAKER) 1 % 0-1 (test toas=4635) CALCIUM, [id number] 03:32:00 Test Item Value Reference Range Comments CALCIUM IONIZED (BEAKER) (test turp=741) 1.00 mmol/L 1.12-1.27 PH, BLOOD (BEAKER) (test ewmb=8347) 7.51 POCT-GLUCOSE [id number] 23:40:00 Test Item Value Reference Range Comments POC-GLUCOSE METER (BEAKER) 99 mg/dL 70-110 TESTED AT [facility] [address] [facility] (test sdeg=0748) [facility] [address] COMPREHENSIVE METABOLIC [id number] 05:39:00 Test Item Value Reference Range Comments TOTAL PROTEIN (BEAKER) 5.3 gm/dL 6.0-8.3 (test vwme=486) ALBUMIN (BEAKER) (test 2.9 g/dL 3.5-5.0 cnbh=3043) ALKALINE PHOSPHATASE 296 U/L 40-150 (BEAKER) (test vuwh=891) BILIRUBIN TOTAL (BEAKER) 1.4 mg/dL 0.2-1.2 (test viul=340) SODIUM (BEAKER) (test 137 meq/L 136-145 kirn=790) POTASSIUM (BEAKER) (test 4.3 meq/L 3.5-5.1 ojic=700) CHLORIDE (BEAKER) (test 103 meq/L 98-107 wjhu=806) CO2 (BEAKER) (test 24 meq/L 22-29 sovm=340) BLOOD UREA NITROGEN 47 mg/dL 7-21 (BEAKER) (test ykzk=962) CREATININE (BEAKER) (test 2.46 mg/dL 0.57-1.25 rbja=889) GLUCOSE RANDOM (BEAKER) 123 mg/dL 70-105 (test lggv=103) CALCIUM (BEAKER) (test 8.3 mg/dL 8.4-10.2 xuvn=113) AST (SGOT) (BEAKER) (test 87 U/L 5-34 ypcy=087) ALT (SGPT) (BEAKER) (test 56 U/L 6-55 mjpp=373) EGFR (BEAKER) (test 26 mL/min/1.73 sq m ESTIMATED GFR IS NOT jvpr=2486) ACCURATE CREATININE CLEARANCE IN PREDICTING GLOMERULAR FILTRATION RATE. ESTIMATED GFR IS NOT APPLICABLE FOR DIALYSIS PATIENTS. [id number] 05:36:00 Test Item Value Reference Range Comments PHOSPHORUS (BEAKER) (test xpwe=559) 3.8 mg/dL 2.3-4.7 [id number] 05:36:00 Test Item Value Reference Range Comments MAGNESIUM (BEAKER) (test xdqg=664) 2.2 mg/dL 1.6-2.6 CBC W/PLT COUNT & AUTO [id number] 05:10:00 Test Item Value Reference Range Comments WHITE BLOOD CELL COUNT (BEAKER) (test pxlx=559) 17.1 K/ L 3.5-10.5 RED BLOOD CELL COUNT (BEAKER) (test edoc=089) 3.23 M/ L 4.63-6.08 HEMOGLOBIN (BEAKER) (test ogmz=240) 8.7 GM/DL 13.7-17.5 HEMATOCRIT (BEAKER) (test savz=383) 28.6 % 40.1-51.0 MEAN CORPUSCULAR VOLUME (BEAKER) (test hbxg=140) 88.5 fL 79.0-92.2 MEAN CORPUSCULAR HEMOGLOBIN (BEAKER) (test 26.9 pg 25.7-32.2 riva=141) MEAN CORPUSCULAR HEMOGLOBIN CONC (BEAKER) (test 30.4 GM/DL 32.3-36.5 suyf=871) RED CELL DISTRIBUTION WIDTH (BEAKER) (test 24.4 % 11.6-14.4 tzdi=589) PLATELET COUNT (BEAKER) (test pmov=399) 322 K/CU MM 150-450 MEAN PLATELET VOLUME (BEAKER) (test gnqe=278) 10.1 fL 9.4-12.4 NUCLEATED RED BLOOD CELLS (BEAKER) (test 0 /100 WBC 0-0 jatn=061) NEUTROPHILS RELATIVE PERCENT (BEAKER) (test 84 % nlws=541) LYMPHOCYTES RELATIVE PERCENT (BEAKER) (test 6 % sdzs=661) MONOCYTES RELATIVE PERCENT (BEAKER) (test 7 % cvbl=163) EOSINOPHILS RELATIVE PERCENT (BEAKER) (test 1 % pbqh=761) BASOPHILS RELATIVE PERCENT (BEAKER) (test 0 % ugzi=765) NEUTROPHILS ABSOLUTE COUNT (BEAKER) (test 14.45 K/ L 1.78-5.38 oluh=706) LYMPHOCYTES ABSOLUTE COUNT (BEAKER) (test 1.01 K/ L 1.32-3.57 jbdt=519) MONOCYTES ABSOLUTE COUNT (BEAKER) (test 1.21 K/ L 0.30-0.82 gkqo=979) EOSINOPHILS ABSOLUTE COUNT (BEAKER) (test 0.09 K/ L 0.04-0.54 nvra=469) BASOPHILS ABSOLUTE COUNT (BEAKER) (test 0.03 K/ L 0.01-0.08 cvgk=703) IMMATURE GRANULOCYTES-RELATIVE PERCENT (BEAKER) 2 % 0-1 (test ieru=4560) CALCIUM, [id number] 05:09:00 Test Item Value Reference Range Comments CALCIUM IONIZED (BEAKER) (test pmib=310) 1.03 mmol/L 1.12-1.27 PH, BLOOD (BEAKER) (test mdhp=3952) 7.43 POCT-GLUCOSE [id number] 22:16:00 Test Item Value Reference Range Comments POC-GLUCOSE METER (BEAKER) 135 mg/dL 70-110 TESTED AT [address] (test tsvd=7534) [place] [address] POCT-GLUCOSE [id number] 11:57:00 Test Item Value Reference Range Comments POC-GLUCOSE METER (BEAKER) 220 mg/dL 70-110 TESTED AT [address] (test iwem=1903) [place] [address] POCT-GLUCOSE [id number] 08:20:00 Test Item Value Reference Range Comments POC-GLUCOSE METER (BEAKER) 114 mg/dL 70-110 TESTED AT [address] (test phba=9894) [place] [address] [id number] 05:07:00 Test Item Value Reference Range Comments FERRITIN (BEAKER) (test ysgi=333) 162 ng/mL 5-275 IRON, TIBC, % SAT. (WITHOUT FERRITIN)[id number] 04:54:00 Test Item Value Reference Range Comments IRON (BEAKER) (test xggv=981) 33.0 ug/dL 40.0-160.0 TOTAL IRON BINDING CAPACITY (BEAKER) (test 161 ug/dL 250-450 ikfd=248) IRON % SATURATION (2) (BEAKER) (test epag=6890) 20 % 20-55 [id number] 04:47:00 Test Item Value Reference Range Comments PHOSPHORUS (BEAKER) (test mzfv=169) 3.4 mg/dL 2.3-4.7 [id number] 04:47:00 Test Item Value Reference Range Comments MAGNESIUM (BEAKER) (test izfq=925) 1.7 mg/dL 1.6-2.6 COMPREHENSIVE METABOLIC [id number] 04:47:00 Test Item Value Reference Range Comments TOTAL PROTEIN (BEAKER) 4.8 gm/dL 6.0-8.3 (test cjxx=624) ALBUMIN (BEAKER) (test 2.6 g/dL 3.5-5.0 rymw=8655) ALKALINE PHOSPHATASE 255 U/L 40-150 (BEAKER) (test syam=069) BILIRUBIN TOTAL (BEAKER) 1.6 mg/dL 0.2-1.2 (test moia=605) SODIUM (BEAKER) (test 136 meq/L 136-145 hbag=700) POTASSIUM (BEAKER) (test 3.4 meq/L 3.5-5.1 qgua=191) CHLORIDE (BEAKER) (test 102 meq/L 98-107 dmzu=227) CO2 (BEAKER) (test 27 meq/L 22-29 ggdt=184) BLOOD UREA NITROGEN 31 mg/dL 7-21 (BEAKER) (test dtoc=344) CREATININE (BEAKER) (test 1.92 mg/dL 0.57-1.25 lgwf=399) GLUCOSE RANDOM (BEAKER) 112 mg/dL 70-105 (test biho=118) CALCIUM (BEAKER) (test 8.1 mg/dL 8.4-10.2 vqxz=590) AST (SGOT) (BEAKER) (test 108 U/L 5-34 uyje=054) ALT (SGPT) (BEAKER) (test 44 U/L 6-55 srdu=190) EGFR (BEAKER) (test 35 mL/min/1.73 sq m ESTIMATED GFR IS NOT muir=0620) ACCURATE CREATININE CLEARANCE IN PREDICTING GLOMERULAR FILTRATION RATE. ESTIMATED GFR IS NOT APPLICABLE FOR DIALYSIS PATIENTS. CALCIUM, [id number] 04:40:00 Test Item Value Reference Range Comments CALCIUM IONIZED (BEAKER) (test bdha=909) 1.10 mmol/L 1.12-1.27 PH, BLOOD (BEAKER) (test edoi=1869) 7.44 RETICULOCYTE [id number] 04:28:00 Test Item Value Reference Range Comments RETICULOCYTE COUNT PCT (BEAKER) (test bccc=200) 3.5 % 0.5-1.8 CBC W/PLT COUNT & AUTO [id number] 04:27:00 Test Item Value Reference Range Comments WHITE BLOOD CELL COUNT (BEAKER) (test sxcd=348) 13.6 K/ L 3.5-10.5 RED BLOOD CELL COUNT (BEAKER) (test imrz=455) 2.88 M/ L 4.63-6.08 HEMOGLOBIN (BEAKER) (test kxdr=569) 7.9 GM/DL 13.7-17.5 HEMATOCRIT (BEAKER) (test yssl=487) 25.3 % 40.1-51.0 MEAN CORPUSCULAR VOLUME (BEAKER) (test qpjx=175) 87.8 fL 79.0-92.2 MEAN CORPUSCULAR HEMOGLOBIN (BEAKER) (test 27.4 pg 25.7-32.2 zsdh=842) MEAN CORPUSCULAR HEMOGLOBIN CONC (BEAKER) (test 31.2 GM/DL 32.3-36.5 cawn=116) RED CELL DISTRIBUTION WIDTH (BEAKER) (test 24.0 % 11.6-14.4 rvhl=362) PLATELET COUNT (BEAKER) (test pyia=343) 227 K/CU MM 150-450 MEAN PLATELET VOLUME (BEAKER) (test ihnf=773) 10.5 fL 9.4-12.4 NUCLEATED RED BLOOD CELLS (BEAKER) (test 0 /100 WBC 0-0 mzum=131) NEUTROPHILS RELATIVE PERCENT (BEAKER) (test 85 % einx=507) LYMPHOCYTES RELATIVE PERCENT (BEAKER) (test 5 % wwhk=638) MONOCYTES RELATIVE PERCENT (BEAKER) (test 8 % zoth=788) EOSINOPHILS RELATIVE PERCENT (BEAKER) (test 0 % xmlz=069) BASOPHILS RELATIVE PERCENT (BEAKER) (test 0 % yzek=297) NEUTROPHILS ABSOLUTE COUNT (BEAKER) (test 11.58 K/ L 1.78-5.38 zzzm=011) LYMPHOCYTES ABSOLUTE COUNT (BEAKER) (test 0.69 K/ L 1.32-3.57 ailt=776) MONOCYTES ABSOLUTE COUNT (BEAKER) (test 1.07 K/ L 0.30-0.82 nfik=023) EOSINOPHILS ABSOLUTE COUNT (BEAKER) (test 0.03 K/ L 0.04-0.54 bsde=624) BASOPHILS ABSOLUTE COUNT (BEAKER) (test 0.03 K/ L 0.01-0.08 rbva=929) IMMATURE GRANULOCYTES-RELATIVE PERCENT (BEAKER) 2 % 0-1 (test spho=4684) BLOOD [id number] 02:01:00 Test Item Value Reference Range Comments CULTURE (BEAKER) (test gtye=2724) No growth in 5 days BLOOD [id number] 02:01:00 Test Item Value Reference Range Comments CULTURE (BEAKER) (test vssi=1352) No growth in 5 days POCT-GLUCOSE [id number] 22:10:00 Test Item Value Reference Range Comments POC-GLUCOSE METER (BEAKER) 191 mg/dL 70-110 TESTED AT [address] (test clce=1323) [place] [id number] POCT-GLUCOSE [id number] 17:32:00 Test Item Value Reference Range Comments POC-GLUCOSE METER (BEAKER) 243 mg/dL 70-110 TESTED AT [address] (test apkd=1318) [place] [address] POCT-GLUCOSE [id number] 11:45:00 Test Item Value Reference Range Comments POC-GLUCOSE METER (BEAKER) 211 mg/dL 70-110 TESTED AT [address] (test kerd=4127) [place] [id number] C-REACTIVE [id number] 10:51:00 Test Item Value Reference Range Comments C-REACTIVE PROTEIN (BEAKER) (test lsxr=597) 12.99 mg/dL 0.00-0.50 RAD, KNEE, 1 OR 2 VIEWS, [id number] 10:15:00Reason for exam:->knee pain, goutShould this be performed at the bedside?->YesFINAL REPORT TECHNIQUE: Frontal and lateral and oblique radiographs of both knees dated 11/19/2018 HISTORY: Knee pain, gout COMPARISON: None. FINDINGS:No fracture or dislocationin either knee. Bones are osteopenic. There are small bilateral suprapatellar joint effusions. No bone erosion or soft tissue nodule seen. No radiodense foreign body or subcutaneous emphysema. IMPRESSION:No fracture or dislocation in either knee. Small bilateral suprapatellar joint effusions. Signed: Rose Clemente MDReport Verified Date/Time: 11/19/2018 10:15:39 Reading Location: [facility] RadiologyReading Room RAD, KNEE, 1 OR 2 VIEWS, [id number] 10:15:00Reason for exam:->knee pain,goutShould this be performed at the bedside?->YesFINAL REPORT TECHNIQUE: Frontal and lateral and oblique radiographs of both knees dated 11/19/2018 HISTORY: Knee pain, gout COMPARISON: None. FINDINGS:No fracture or dislocationin either knee. Bones are osteopenic. There are small bilateral suprapatellar joint effusions. No bone erosion or soft tissue nodule seen. No radiodense foreign body or subcutaneous emphysema. IMPRESSION:No fracture or dislocation in either knee. Small bilateral suprapatellar joint effusions. Signed: Rose Clemente MDReport Verified Date/Time: 11/19/2018 10:15:39 Reading Location: [facility] RadiologyReading Room POCT-GLUCOSE [id number] 08:02:00 Test Item Value Reference Range Comments POC-GLUCOSE METER (BEAKER) 166 mg/dL 70-110 TESTED AT [facility] [address] [facility] (test mgdi=9198) [facility] [address] CALCIUM, [id number] 05:58:00 Test Item Value Reference Range Comments CALCIUM IONIZED (BEAKER) (test jnue=138) 1.01 mmol/L 1.12-1.27 PH, BLOOD (BEAKER) (test svib=1100) 7.40 COMPREHENSIVE METABOLIC [id number] 05:03:00 Test Item Value Reference Range Comments TOTAL PROTEIN (BEAKER) 4.7 gm/dL 6.0-8.3 (test vrwp=539) ALBUMIN (BEAKER) (test 2.6 g/dL 3.5-5.0 fuei=3874) ALKALINE PHOSPHATASE 195 U/L 40-150 (BEAKER) (test weki=689) BILIRUBIN TOTAL (BEAKER) 2.3 mg/dL 0.2-1.2 (test bges=501) SODIUM (BEAKER) (test 131 meq/L 136-145 ahyi=244) POTASSIUM (BEAKER) (test 4.2 meq/L 3.5-5.1 nlnf=426) CHLORIDE (BEAKER) (test 98 meq/L 98-107 dzfz=273) CO2 (BEAKER) (test 23 meq/L 22-29 izzt=409) BLOOD UREA NITROGEN 38 mg/dL 7-21 (BEAKER) (test lnrk=926) CREATININE (BEAKER) (test 2.92 mg/dL 0.57-1.25 ksie=365) GLUCOSE RANDOM (BEAKER) 135 mg/dL 70-105 (test mqzx=800) CALCIUM (BEAKER) (test 8.1 mg/dL 8.4-10.2 toio=700) AST (SGOT) (BEAKER) (test 46 U/L 5-34 oxrx=034) ALT (SGPT) (BEAKER) (test 16 U/L 6-55 kkwb=903) EGFR (BEAKER) (test 21 mL/min/1.73 sq m ESTIMATED GFR IS NOT ddzs=5527) ACCURATE CREATININE CLEARANCE IN PREDICTING GLOMERULAR FILTRATION RATE. ESTIMATED GFR IS NOT APPLICABLE FOR DIALYSIS PATIENTS. CBC W/PLT COUNT & AUTO [id number] 04:55:00 Test Item Value Reference Range Comments WHITE BLOOD CELL COUNT (BEAKER) (test xtbn=491) 8.6 K/ L 3.5-10.5 RED BLOOD CELL COUNT (BEAKER) (test njgd=523) 2.85 M/ L 4.63-6.08 HEMOGLOBIN (BEAKER) (test pqhe=222) 7.7 GM/DL 13.7-17.5 HEMATOCRIT (BEAKER) (test kkao=873) 24.6 % 40.1-51.0 MEAN CORPUSCULAR VOLUME (BEAKER) (test mbkq=505) 86.3 fL 79.0-92.2 MEAN CORPUSCULAR HEMOGLOBIN (BEAKER) (test 27.0 pg 25.7-32.2 kvzi=566) MEAN CORPUSCULAR HEMOGLOBIN CONC (BEAKER) (test 31.3 GM/DL 32.3-36.5 jzyq=635) RED CELL DISTRIBUTION WIDTH (BEAKER) (test 24.2 % 11.6-14.4 lper=861) PLATELET COUNT (BEAKER) (test dond=381) 176 K/CU MM 150-450 MEAN PLATELET VOLUME (BEAKER) (test nfpq=419) 10.1 fL 9.4-12.4 NUCLEATED RED BLOOD CELLS (BEAKER) (test 0 /100 WBC 0-0 pxsc=805) NEUTROPHILS RELATIVE PERCENT (BEAKER) (test 85 % gmin=745) LYMPHOCYTES RELATIVE PERCENT (BEAKER) (test 6 % rzjo=060) MONOCYTES RELATIVE PERCENT (BEAKER) (test 8 % mqkh=234) EOSINOPHILS RELATIVE PERCENT (BEAKER) (test 0 % stvi=333) BASOPHILS RELATIVE PERCENT (BEAKER) (test 0 % cobm=683) NEUTROPHILS ABSOLUTE COUNT (BEAKER) (test 7.29 K/ L 1.78-5.38 ruev=014) LYMPHOCYTES ABSOLUTE COUNT (BEAKER) (test 0.50 K/ L 1.32-3.57 haec=215) MONOCYTES ABSOLUTE COUNT (BEAKER) (test 0.65 K/ L 0.30-0.82 brfs=327) EOSINOPHILS ABSOLUTE COUNT (BEAKER) (test 0.02 K/ L 0.04-0.54 isrv=250) BASOPHILS ABSOLUTE COUNT (BEAKER) (test 0.02 K/ L 0.01-0.08 agei=182) IMMATURE GRANULOCYTES-RELATIVE PERCENT (BEAKER) 2 % 0-1 (test rfsq=4778) [id number] 04:54:00 Test Item Value Reference Range Comments PHOSPHORUS (BEAKER) (test aixp=042) 5.9 mg/dL 2.3-4.7 [id number] 04:54:00 Test Item Value Reference Range Comments MAGNESIUM (BEAKER) (test jaon=884) 1.7 mg/dL 1.6-2.6 POCT-GLUCOSE [id number] 22:24:00 Test Item Value Reference Range Comments POC-GLUCOSE METER (BEAKER) 234 mg/dL 70-110 TESTED AT [address] (test yeew=8786) [facility] [address] POCT-GLUCOSE [id number] 17:52:00 Test Item Value Reference Range Comments POC-GLUCOSE METER (BEAKER) 164 mg/dL 70-110 TESTED AT [address] (test fvra=7505) [facility] [id number] POCT-GLUCOSE [id number] 13:53:00 Test Item Value Reference Range Comments POC-GLUCOSE METER (BEAKER) 165 mg/dL 70-110 TESTED AT [address] (test aipp=7245) [facility] [address] [id number] 06:53:00 Test Item Value Reference Range Comments PHOSPHORUS (BEAKER) (test mraq=335) 4.5 mg/dL 2.3-4.7 [id number] 06:53:00 Test Item Value Reference Range Comments MAGNESIUM (BEAKER) (test gwlx=623) 1.8 mg/dL 1.6-2.6 COMPREHENSIVE METABOLIC [id number] 06:53:00 Test Item Value Reference Range Comments TOTAL PROTEIN (BEAKER) 5.1 gm/dL 6.0-8.3 (test nlyw=583) ALBUMIN (BEAKER) (test 2.7 g/dL 3.5-5.0 xzac=3421) ALKALINE PHOSPHATASE 172 U/L 40-150 (BEAKER) (test qcbt=055) BILIRUBIN TOTAL (BEAKER) 3.5 mg/dL 0.2-1.2 (test nkeg=656) SODIUM (BEAKER) (test 132 meq/L 136-145 lnqj=643) POTASSIUM (BEAKER) (test 4.1 meq/L 3.5-5.1 yfjk=466) CHLORIDE (BEAKER) (test 99 meq/L 98-107 kwwc=860) CO2 (BEAKER) (test 24 meq/L 22-29 bbma=754) BLOOD UREA NITROGEN 20 mg/dL 7-21 (BEAKER) (test lqwn=765) CREATININE (BEAKER) (test 1.98 mg/dL 0.57-1.25 ghdh=668) GLUCOSE RANDOM (BEAKER) 100 mg/dL 70-105 (test eskz=857) CALCIUM (BEAKER) (test 8.2 mg/dL 8.4-10.2 xbls=350) AST (SGOT) (BEAKER) (test 23 U/L 5-34 sagv=957) ALT (SGPT) (BEAKER) (test 10 U/L 6-55 hrbq=887) EGFR (BEAKER) (test 33 mL/min/1.73 sq m ESTIMATED GFR IS NOT dant=6635) ACCURATE CREATININE CLEARANCE IN PREDICTING GLOMERULAR FILTRATION RATE. ESTIMATED GFR IS NOT APPLICABLE FOR DIALYSIS PATIENTS. Specimen slightly ictericCALCIUM, [id number] 05:57:00 Test Item Value Reference Range Comments CALCIUM IONIZED (BEAKER) (test qlpy=698) 1.07 mmol/L 1.12-1.27 PH, BLOOD (BEAKER) (test cyve=2578) 7.37 CBC W/PLT COUNT & AUTO [id number] 05:47:00 Test Item Value Reference Range Comments WHITE BLOOD CELL COUNT (BEAKER) (test eaax=428) 11.7 K/ L 3.5-10.5 RED BLOOD CELL COUNT (BEAKER) (test kyfd=584) 3.38 M/ L 4.63-6.08 HEMOGLOBIN (BEAKER) (test qgyo=877) 9.1 GM/DL 13.7-17.5 HEMATOCRIT (BEAKER) (test kzey=371) 30.6 % 40.1-51.0 MEAN CORPUSCULAR VOLUME (BEAKER) (test njgq=982) 90.5 fL 79.0-92.2 MEAN CORPUSCULAR HEMOGLOBIN (BEAKER) (test 26.9 pg 25.7-32.2 auha=843) MEAN CORPUSCULAR HEMOGLOBIN CONC (BEAKER) (test 29.7 GM/DL 32.3-36.5 mfkd=028) RED CELL DISTRIBUTION WIDTH (BEAKER) (test 25.1 % 11.6-14.4 sazv=117) PLATELET COUNT (BEAKER) (test oedv=467) 187 K/CU MM 150-450 MEAN PLATELET VOLUME (BEAKER) (test tvhr=467) 9.2 fL 9.4-12.4 NUCLEATED RED BLOOD CELLS (BEAKER) (test 0 /100 WBC 0-0 nfuu=679) NEUTROPHILS RELATIVE PERCENT (BEAKER) (test 77 % ksaa=602) LYMPHOCYTES RELATIVE PERCENT (BEAKER) (test 7 % fqnb=431) MONOCYTES RELATIVE PERCENT (BEAKER) (test 9 % uhey=571) EOSINOPHILS RELATIVE PERCENT (BEAKER) (test 5 % cnai=869) BASOPHILS RELATIVE PERCENT (BEAKER) (test 1 % ganh=943) NEUTROPHILS ABSOLUTE COUNT (BEAKER) (test 8.95 K/ L 1.78-5.38 uktu=919) LYMPHOCYTES ABSOLUTE COUNT (BEAKER) (test 0.80 K/ L 1.32-3.57 hwoz=968) MONOCYTES ABSOLUTE COUNT (BEAKER) (test 1.09 K/ L 0.30-0.82 fjmf=697) EOSINOPHILS ABSOLUTE COUNT (BEAKER) (test 0.57 K/ L 0.04-0.54 jxzc=140) BASOPHILS ABSOLUTE COUNT (BEAKER) (test 0.06 K/ L 0.01-0.08 gbia=836) IMMATURE GRANULOCYTES-RELATIVE PERCENT (BEAKER) 2 % 0-1 (test tkdt=8715) HEMOGLOBIN AND [id number] 15:44:00 Test Item Value Reference Range Comments HEMOGLOBIN (BEAKER) (test ziql=392) 9.4 GM/DL 13.7-17.5 HEMATOCRIT (BEAKER) (test uxjp=748) 31.4 % 40.1-51.0 HEMORRHAGE IMAGING, [id number] 15:07:00FINAL REPORT PROCEDURE: HEMORRHAGE STUDY with RBCs CPT CODE: 23410 INDICATION: Gastrointestinal Bleeding PROTOCOL: 22.0 mCi of [...] active or interval hemorrhage is seen. Signed: Ronnie Mckeon Verified Date/Time: 11/17/2018 15:07:00 Reading Location: [address] Reading Room PLATELET AGGREGATION: FUNCTION [id number] 12:31:00 Test Item Value Reference Range Comments WEAK ADP RESULT(BEAKER) (test 90 % 60-91 yxjb=5793) PLATELET FUNCTION SCREEN 60-100% indicates normal INTERP (BEAKER) (test platelet function rsme=0219) [id number] (BEAKER) Kyle Man MD (electronic (test ndgf=1945) signature) PLATELET COUNT AGG (BEAKER) 215 K/CU MM 150-450 (test nlxh=3887) Platelet Function Screen results may be falsely low with platelet counts<100, 000/cu mm.xareltoVANCOMYCIN LEVEL, [id number] 09:19:00 Test Item Value Reference Range Comments VANCOMYCIN RANDOM (BEAKER) (test kjjv=937) 16.1 ug/mL Reference Range: No NormalsHEMOGLOBIN AND [id number] 08:24:00 Test Item Value Reference Range Comments HEMOGLOBIN (BEAKER) (test xttv=525) 8.0 GM/DL 13.7-17.5 HEMATOCRIT (BEAKER) (test pqml=201) 26.3 % 40.1-51.0 COMPREHENSIVE METABOLIC [id number] 02:44:00 Test Item Value Reference Range Comments TOTAL PROTEIN (BEAKER) 5.0 gm/dL 6.0-8.3 (test ccdi=464) ALBUMIN (BEAKER) (test 2.8 g/dL 3.5-5.0 miwf=9863) ALKALINE PHOSPHATASE 184 U/L 40-150 (BEAKER) (test yoea=078) BILIRUBIN TOTAL (BEAKER) 2.2 mg/dL 0.2-1.2 (test ovme=659) SODIUM (BEAKER) (test 136 meq/L 136-145 fdcy=496) POTASSIUM (BEAKER) (test 4.3 meq/L 3.5-5.1 vmls=834) CHLORIDE (BEAKER) (test 103 meq/L 98-107 kwwc=717) CO2 (BEAKER) (test 23 meq/L 22-29 dnfz=584) BLOOD UREA NITROGEN 23 mg/dL 7-21 (BEAKER) (test fxev=168) CREATININE (BEAKER) (test 2.87 mg/dL 0.57-1.25 qsgi=349) GLUCOSE RANDOM (BEAKER) 116 mg/dL 70-105 (test knjc=293) CALCIUM (BEAKER) (test 8.5 mg/dL 8.4-10.2 tklh=422) AST (SGOT) (BEAKER) (test 19 U/L 5-34 tebm=751) ALT (SGPT) (BEAKER) (test 9 U/L 6-55 ucov=521) EGFR (BEAKER) (test 22 mL/min/1.73 sq m ESTIMATED GFR IS NOT gyxs=6393) ACCURATE CREATININE CLEARANCE IN PREDICTING GLOMERULAR FILTRATION RATE. ESTIMATED GFR IS NOT APPLICABLE FOR DIALYSIS PATIENTS. [id number] 02:36:00 Test Item Value Reference Range Comments PHOSPHORUS (BEAKER) (test nnzf=202) 4.2 mg/dL 2.3-4.7 [id number] 02:36:00 Test Item Value Reference Range Comments MAGNESIUM (BEAKER) (test tqdh=999) 2.2 mg/dL 1.6-2.6 CBC W/PLT COUNT & AUTO [id number] 02:25:00 Test Item Value Reference Range Comments WHITE BLOOD CELL COUNT (BEAKER) (test mqtj=487) 16.0 K/ L 3.5-10.5 RED BLOOD CELL COUNT (BEAKER) (test zntn=021) 2.91 M/ L 4.63-6.08 HEMOGLOBIN (BEAKER) (test mckc=580) 7.9 GM/DL 13.7-17.5 HEMATOCRIT (BEAKER) (test qidg=598) 26.0 % 40.1-51.0 MEAN CORPUSCULAR VOLUME (BEAKER) (test ptzy=873) 89.3 fL 79.0-92.2 MEAN CORPUSCULAR HEMOGLOBIN (BEAKER) (test 27.1 pg 25.7-32.2 qxve=898) MEAN CORPUSCULAR HEMOGLOBIN CONC (BEAKER) (test 30.4 GM/DL 32.3-36.5 zphz=037) RED CELL DISTRIBUTION WIDTH (BEAKER) (test 25.5 % 11.6-14.4 zyuy=604) PLATELET COUNT (BEAKER) (test ggrr=625) 210 K/CU MM 150-450 MEAN PLATELET VOLUME (BEAKER) (test gnvd=179) 9.1 fL 9.4-12.4 NUCLEATED RED BLOOD CELLS (BEAKER) (test 0 /100 WBC 0-0 ixoe=230) NEUTROPHILS RELATIVE PERCENT (BEAKER) (test 79 % uywt=853) LYMPHOCYTES RELATIVE PERCENT (BEAKER) (test 6 % uftn=923) MONOCYTES RELATIVE PERCENT (BEAKER) (test 9 % twbk=055) EOSINOPHILS RELATIVE PERCENT (BEAKER) (test 3 % gfmb=680) BASOPHILS RELATIVE PERCENT (BEAKER) (test 1 % sdqh=738) NEUTROPHILS ABSOLUTE COUNT (BEAKER) (test 12.73 K/ L 1.78-5.38 znho=455) LYMPHOCYTES ABSOLUTE COUNT (BEAKER) (test 0.92 K/ L 1.32-3.57 kpnc=296) MONOCYTES ABSOLUTE COUNT (BEAKER) (test 1.44 K/ L 0.30-0.82 qodm=325) EOSINOPHILS ABSOLUTE COUNT (BEAKER) (test 0.55 K/ L 0.04-0.54 ewke=148) BASOPHILS ABSOLUTE COUNT (BEAKER) (test 0.11 K/ L 0.01-0.08 meri=401) IMMATURE GRANULOCYTES-RELATIVE PERCENT (BEAKER) 2 % 0-1 (test xnfi=7072) CALCIUM, [id number] 02:20:00 Test Item Value Reference Range Comments CALCIUM IONIZED (BEAKER) (test qdlp=338) 1.13 mmol/L 1.12-1.27 PH, BLOOD (BEAKER) (test rpmq=7041) 7.43 HEPARIN ASSAY - LOW MOLECULAR [id number] 20:18:00 Test Item Value Reference Range Comments LOVENOX-ANTI 10A (BEAKER) (test rozh=7768) 0.10 u/ml 0.60-2.00 Anti-Factor 10-A Level (Heparin Assay for Low Molecular Weight Heparin) Monitoring Guidelines: Blood samples should be obtained 4 hours post subcutaneous injection (time of Peak level) Therapeutic Peak Levels: 0.6-1.0 units/mL twice daily enoxaparin 1.0-2.0 units/mL once daily enoxaparinRef: CHEST 2012;141:[id number] ASSAY - [id number] 20:18:00 Test Item Value Reference Range Comments UNFRACTIONATED HEPARIN-ANTI 10A (BEAKER) (test 0.12 u/ml 0.30-0.70 htjh=8975) Recommendations for Monitoring Unfractionated Heparin Therapeutic Range: 0.3- 0.7 u/mL with continuous IV infusionPT/[id number] 20:02:00 Test Item Value Reference Range Comments PROTIME (BEAKER) (test bubs=648) 15.1 seconds 11.9-14.2 INR (BEAKER) (test fkwu=256) 1.2 <=5.9 PARTIAL THROMBOPLASTIN TIME (BEAKER) (test 42.8 seconds 22.5-36.0 fjmu=198) Effective 10/27/2018: PT Reference Range ChangeNew: 11.9-14.2 Previous: 11.7- 14.7RECOMMENDED COUMADIN/WARFARIN INR THERAPY RANGESSTANDARD DOSE: 2.0-3.0 Includes: PROPHYLAXIS for venous thrombosis, systemic embolization; TREATMENT for venous thrombosis and/or pulmonary embolus.HIGH RISK: Target INR is2.5-3.5 for patients wiht mechanical heart valves.BASIC METABOLIC [id number] 19:04: 00 Test Item Value Reference Range Comments SODIUM (BEAKER) (test 135 meq/L 136-145 xtrx=480) POTASSIUM (BEAKER) (test 4.1 meq/L 3.5-5.1 tara=155) CHLORIDE (BEAKER) (test 102 meq/L 98-107 smks=857) CO2 (BEAKER) (test 23 meq/L 22-29 objr=920) BLOOD UREA NITROGEN 21 mg/dL 7-21 (BEAKER) (test tiwx=135) CREATININE (BEAKER) (test 2.58 mg/dL 0.57-1.25 xwra=722) GLUCOSE RANDOM (BEAKER) 126 mg/dL 70-105 (test ditu=095) CALCIUM (BEAKER) (test 8.3 mg/dL 8.4-10.2 czcn=684) EGFR (BEAKER) (test 25 mL/min/1.73 sq m ESTIMATED GFR IS NOT cdta=6071) ACCURATE CREATININE CLEARANCE IN PREDICTING GLOMERULAR FILTRATION RATE. ESTIMATED GFR IS NOT APPLICABLE FOR DIALYSIS PATIENTS. Specimen slightly [id number] 19:01:00 Test Item Value Reference Range Comments PHOSPHORUS (BEAKER) (test rbgd=903) 3.6 mg/dL 2.3-4.7 [id number] 19:01:00 Test Item Value Reference Range Comments MAGNESIUM (BEAKER) (test kdro=684) 2.1 mg/dL 1.6-2.6 HEMOGLOBIN AND [id number] 18:27:00 Test Item Value Reference Range Comments HEMOGLOBIN (BEAKER) (test yjzm=640) 8.0 GM/DL 13.7-17.5 HEMATOCRIT (BEAKER) (test oywb=131) 26.3 % 40.1-51.0 THROMBOELASTOGRAPH (TEG)2018-11-16 14:07:00 Test Item Value Reference Range Comments TEG ACTIVATED CLOTTING TIME (BEAKER) (test 4.3 minutes 4.0-7.0 rpnw=0159) TEG FIBRINOGEN ACTIVITY (BEAKER) (test 77.9 degrees 61.0-73.0 uqdg=0400) TEG PLT. AGGREGATION (BEAKER) (test iqzn=0441) 73.2 MM 55.0-65.0 TEG FIBRINOLYSIS (BEAKER) (test kwan=6116) 0.0 % 0.0-5.0 TGH ACTIVATED CLOTTING TIME (BEAKER) (test 4.4 minutes 4.0-7.0 szbu=2590) TGH FIBRINOGEN ACTIVITY (BEAKER) (test 77.1 degrees 61.0-73.0 trsw=5189) TGH PLT. AGGREGATION (BEAKER) (test okis=0577) 69.6 MM 55.0-65.0 TGH FIBRINOLYSIS (BEAKER) (test srit=6587) 0.0 % 0.0-5.0 [id number] 05:17:00 Test Item Value Reference Range Comments PHOSPHORUS (BEAKER) (test whno=154) 3.1 mg/dL 2.3-4.7 [id number] 05:17:00 Test Item Value Reference Range Comments MAGNESIUM (BEAKER) (test xgmh=565) 1.7 mg/dL 1.6-2.6 COMPREHENSIVE METABOLIC [id number] 05:17:00 Test Item Value Reference Range Comments TOTAL PROTEIN (BEAKER) 4.7 gm/dL 6.0-8.3 (test putf=731) ALBUMIN (BEAKER) (test 2.7 g/dL 3.5-5.0 xdok=5466) ALKALINE PHOSPHATASE 191 U/L 40-150 (BEAKER) (test fkbu=455) BILIRUBIN TOTAL (BEAKER) 1.8 mg/dL 0.2-1.2 (test ijmc=385) SODIUM (BEAKER) (test 140 meq/L 136-145 jsif=197) POTASSIUM (BEAKER) (test 3.5 meq/L 3.5-5.1 jboy=433) CHLORIDE (BEAKER) (test 105 meq/L 98-107 shle=004) CO2 (BEAKER) (test 26 meq/L 22-29 qooq=714) BLOOD UREA NITROGEN 16 mg/dL 7-21 (BEAKER) (test agbs=983) CREATININE (BEAKER) (test 2.04 mg/dL 0.57-1.25 ynqi=223) GLUCOSE RANDOM (BEAKER) 142 mg/dL 70-105 (test bxer=018) CALCIUM (BEAKER) (test 8.3 mg/dL 8.4-10.2 nwsd=995) AST (SGOT) (BEAKER) (test 18 U/L 5-34 atdd=051) ALT (SGPT) (BEAKER) (test 11 U/L 6-55 ywzf=334) EGFR (BEAKER) (test 32 mL/min/1.73 sq m ESTIMATED GFR IS NOT jctb=6353) ACCURATE CREATININE CLEARANCE IN PREDICTING GLOMERULAR FILTRATION RATE. ESTIMATED GFR IS NOT APPLICABLE FOR DIALYSIS PATIENTS. VANCOMYCIN LEVEL, [id number] 05:12:00 Test Item Value Reference Range Comments VANCOMYCIN RANDOM (BEAKER) (test hgpk=654) 7.5 ug/mL Reference Range: No NormalsCBC W/PLT COUNT & AUTO [id number] 04: 51:00 Test Item Value Reference Range Comments WHITE BLOOD CELL COUNT (BEAKER) (test pizb=428) 13.8 K/ L 3.5-10.5 RED BLOOD CELL COUNT (BEAKER) (test bttq=963) 2.76 M/ L 4.63-6.08 HEMOGLOBIN (BEAKER) (test meei=996) 7.3 GM/DL 13.7-17.5 HEMATOCRIT (BEAKER) (test jycl=364) 23.7 % 40.1-51.0 MEAN CORPUSCULAR VOLUME (BEAKER) (test hkvt=512) 85.9 fL 79.0-92.2 MEAN CORPUSCULAR HEMOGLOBIN (BEAKER) (test 26.4 pg 25.7-32.2 qgbo=001) MEAN CORPUSCULAR HEMOGLOBIN CONC (BEAKER) (test 30.8 GM/DL 32.3-36.5 nrvq=691) RED CELL DISTRIBUTION WIDTH (BEAKER) (test 25.0 % 11.6-14.4 ifuy=755) PLATELET COUNT (BEAKER) (test kdha=811) 218 K/CU MM 150-450 MEAN PLATELET VOLUME (BEAKER) (test tzbs=993) 9.3 fL 9.4-12.4 NUCLEATED RED BLOOD CELLS (BEAKER) (test 0 /100 WBC 0-0 zvbn=246) NEUTROPHILS RELATIVE PERCENT (BEAKER) (test 78 % crqe=638) LYMPHOCYTES RELATIVE PERCENT (BEAKER) (test 6 % puvz=043) MONOCYTES RELATIVE PERCENT (BEAKER) (test 10 % xrgd=995) EOSINOPHILS RELATIVE PERCENT (BEAKER) (test 3 % yypo=649) BASOPHILS RELATIVE PERCENT (BEAKER) (test 0 % gabf=171) NEUTROPHILS ABSOLUTE COUNT (BEAKER) (test 10.68 K/ L 1.78-5.38 xraq=284) LYMPHOCYTES ABSOLUTE COUNT (BEAKER) (test 0.80 K/ L 1.32-3.57 xhaw=841) MONOCYTES ABSOLUTE COUNT (BEAKER) (test 1.43 K/ L 0.30-0.82 rapt=387) EOSINOPHILS ABSOLUTE COUNT (BEAKER) (test 0.40 K/ L 0.04-0.54 bmnn=051) BASOPHILS ABSOLUTE COUNT (BEAKER) (test 0.06 K/ L 0.01-0.08 rlkf=978) IMMATURE GRANULOCYTES-RELATIVE PERCENT (BEAKER) 3 % 0-1 (test ppnc=9118) CALCIUM, [id number] 04:28:00 Test Item Value Reference Range Comments CALCIUM IONIZED (BEAKER) (test kmmj=114) 1.11 mmol/L 1.12-1.27 PH, BLOOD (BEAKER) (test kxcu=6018) 7.44 HEMOGLOBIN AND [id number] 00:27:00 Test Item Value Reference Range Comments HEMOGLOBIN (BEAKER) (test jwbi=403) 7.7 GM/DL 13.7-17.5 HEMATOCRIT (BEAKER) (test mggo=351) 24.6 % 40.1-51.0 HEMOGLOBIN AND [id number] 20:58:00 Test Item Value Reference Range Comments HEMOGLOBIN (BEAKER) (test wzpn=164) 7.8 GM/DL 13.7-17.5 HEMATOCRIT (BEAKER) (test ufyu=303) 24.7 % 40.1-51.0 HEMOGLOBIN AND [id number] 18:18:00 Test Item Value Reference Range Comments HEMOGLOBIN (BEAKER) (test wfel=600) 8.2 GM/DL 13.7-17.5 HEMATOCRIT (BEAKER) (test wdtl=352) 25.9 % 40.1-51.0 HEMOGLOBIN AND [id number] 13:41:00 Test Item Value Reference Range Comments HEMOGLOBIN (BEAKER) (test nycw=264) 6.9 GM/DL 13.7-17.5 HEMATOCRIT (BEAKER) (test xaqc=536) 21.6 % 40.1-51.0 HEPATITIS B SURFACE [id number] 10:11:00 Test Item Value Reference Range Comments HEPATITIS B SURFACE ANTIGEN (2) (BEAKER) (test Nonreactive Nonreactive fgdv=2907) For chronic HD patients, draw HBsAg with each admission then every 30 days.HEMOGLOBIN AND [id number] 09:38:00 Test Item Value Reference Range Comments HEMOGLOBIN (BEAKER) (test xcfa=398) 7.0 GM/DL 13.7-17.5 HEMATOCRIT (BEAKER) (test yqmx=113) 22.9 % 40.1-51.0 [id number] 09:24:00 Test Item Value Reference Range Comments AMMONIA (BEAKER) (test cigj=958) 34 mol/L 18-72 CBC W/PLT COUNT & AUTO [id number] 09:07:00 Test Item Value Reference Range Comments WHITE BLOOD CELL COUNT (BEAKER) (test ezif=057) 13.8 K/ L 3.5-10.5 RED BLOOD CELL COUNT (BEAKER) (test qwmi=227) 2.65 M/ L 4.63-6.08 HEMOGLOBIN (BEAKER) (test cqft=705) 7.1 GM/DL 13.7-17.5 HEMATOCRIT (BEAKER) (test nxlj=139) 22.6 % 40.1-51.0 MEAN CORPUSCULAR VOLUME (BEAKER) (test owki=459) 85.3 fL 79.0-92.2 MEAN CORPUSCULAR HEMOGLOBIN (BEAKER) (test 26.8 pg 25.7-32.2 dghj=100) MEAN CORPUSCULAR HEMOGLOBIN CONC (BEAKER) (test 31.4 GM/DL 32.3-36.5 xsvd=377) RED CELL DISTRIBUTION WIDTH (BEAKER) (test 26.3 % 11.6-14.4 psrs=427) PLATELET COUNT (BEAKER) (test tviq=687) 231 K/CU MM 150-450 MEAN PLATELET VOLUME (BEAKER) (test iipo=938) 9.5 fL 9.4-12.4 NUCLEATED RED BLOOD CELLS (BEAKER) (test 0 /100 WBC 0-0 smls=405) (CELLAVISION MANUAL DIFF)2018-11-15 09:07:00 Test Item Value Reference Range Comments NEUTROPHILS - REL (CELLAVISION)(BEAKER) (test 91 % wnnf=9132) LYMPHOCYTES - REL (CELLAVISION)(BEAKER) (test 3 % qwld=6081) MONOCYTES - REL (CELLAVISION)(BEAKER) (test 3 % zqfu=7204) EOSINOPHILS - REL (CELLAVISION)(BEAKER) (test 3 % twlc=5645) NEUTROPHILS - ABS (CELLAVISION)(BEAKER) (test 12.56 K/ul 1.78-5.38 mhdy=0118) LYMPHOCYTES - ABS (CELLAVISION)(BEAKER) (test 0.41 K/ul 1.32-3.57 rrog=8711) MONOCYTES - ABS (CELLAVISION)(BEAKER) (test 0.41 K/uL 0.30-0.82 uhpu=2821) EOSINOPHILS - ABS (CELLAVISION)(BEAKER) (test 0.41 K/uL 0.04-0.54 yllz=3353) TOTAL COUNTED (BEAKER) (test luax=7484) 100 WBC MORPHOLOGY (BEAKER) (test jbeu=807) Normal PLT MORPHOLOGY (BEAKER) (test nuza=675) Normal POLYCHROMATOPHILLIC RBCS(BEAKER) (test iwqt=589) 1+ few HYPOCHROMIA (BEAKER) (test qvng=898) 1+ few ANISOCYTOSIS (BEAKER) (test wzum=559) 1+ few MICROCYTES (BEAKER) (test huqs=966) 1+ few POIKILOCYTES (BEAKER) (test czcm=571) 1+ few OVALOCYTES (BEAKER) (test hpbf=101) 1+ few ARTIFACT (CELLAVISION)(BEAKER) (test jqth=9876) Present PLATELET CONCENTRATION (CELLAVISION)(BEAKER) Adequate (test gpea=7819) Received comment: User comments: Slide comments:BASIC METABOLIC [id number] 05:52:00 Test Item Value Reference Range Comments SODIUM (BEAKER) (test 136 meq/L 136-145 wzuv=855) POTASSIUM (BEAKER) (test 4.4 meq/L 3.5-5.1 xuxb=029) CHLORIDE (BEAKER) (test 105 meq/L 98-107 bbmn=617) CO2 (BEAKER) (test 21 meq/L 22-29 pboi=082) BLOOD UREA NITROGEN 55 mg/dL 7-21 (BEAKER) (test xsbj=713) CREATININE (BEAKER) (test 3.81 mg/dL 0.57-1.25 jmde=334) GLUCOSE RANDOM (BEAKER) 144 mg/dL 70-105 (test ncqx=085) CALCIUM (BEAKER) (test 8.1 mg/dL 8.4-10.2 hpqb=526) EGFR (BEAKER) (test 16 mL/min/1.73 sq m ESTIMATED GFR IS NOT eqqh=5823) ACCURATE CREATININE CLEARANCE IN PREDICTING GLOMERULAR FILTRATION RATE. ESTIMATED GFR IS NOT APPLICABLE FOR DIALYSIS PATIENTS. [id number] 05:46:00 Test Item Value Reference Range Comments PHOSPHORUS (BEAKER) (test uilt=008) 7.0 mg/dL 2.3-4.7 [id number] 05:46:00 Test Item Value Reference Range Comments MAGNESIUM (BEAKER) (test rjoq=954) 1.7 mg/dL 1.6-2.6 HEMOGLOBIN AND [id number] 05:25:00 Test Item Value Reference Range Comments HEMOGLOBIN (BEAKER) (test rlpu=316) 7.1 GM/DL 13.7-17.5 HEMATOCRIT (BEAKER) (test mrac=326) 22.6 % 40.1-51.0 [id number] 00:42:00 Test Item Value Reference Range Comments PROCALCITONIN (BEAKER) (test iaqi=7472) 1.37 ng/mL <0.05 SEPSIS RISK (ng/mL)Low: 0.05-0.50Intermediate: 0.51-2.00High: & gt;=2.01URINALYSIS W/ REFLEX URINE [id number] 23:53:00 Test Item Value Reference Range Comments COLOR (BEAKER) (test knin=226) Yellow CLARITY (BEAKER) (test nvsp=615) Hazy SPECIFIC GRAVITY UA (BEAKER) (test xlln=711) 1.012 1.001-1.035 PH UA (BEAKER) (test mobf=632) 5.0 5.0-8.0 PROTEIN UA (BEAKER) (test dzqt=829) 10 mg/dL Negative GLUCOSE UA (BEAKER) (test ngfz=282) Negative Negative KETONES UA (BEAKER) (test mrfi=794) Negative Negative BILIRUBIN UA (BEAKER) (test trtn=539) Negative Negative BLOOD UA (BEAKER) (test ybyi=877) Moderate Negative NITRITE UA (BEAKER) (test rbnq=267) Negative Negative LEUKOCYTE ESTERASE UA (BEAKER) (test vtbc=901) Large Negative UROBILINOGEN UA (BEAKER) (test jmim=358) 0.2 mg/dL 0.2-1.0 RBC UA (BEAKER) (test ujoy=770) 240 /HPF WBC UA (BEAKER) (test eggk=016) 87 /HPF MUCUS (BEAKER) (test ewci=2496) Occasional SQUAMOUS EPITHELIAL (BEAKER) (test jrcl=133) 1 /HPF HYALINE CASTS (BEAKER) (test dapn=127) 13 /LPF GRANULAR CASTS (BEAKER) (test abli=609) 2 /LPF SOURCE(BEAKER) (test xiih=0130) CALCIUM, [id number] 23:23:00 Test Item Value Reference Range Comments CALCIUM IONIZED (BEAKER) (test bkpy=313) 1.10 mmol/L 1.12-1.27 PH, BLOOD (BEAKER) (test qhbv=7071) 7.32 LACTIC ACID, [id number] 23:18:00 Test Item Value Reference Range Comments LACTATE BLOOD VENOUS (2) (BEAKER) (test 0.7 mmol/L 0.5-2.2 mnhn=7995) HEMOGLOBIN AND [id number] 22:54:00 Test Item Value Reference Range Comments HEMOGLOBIN (BEAKER) (test zamn=687) 6.7 GM/DL 13.7-17.5 HEMATOCRIT (BEAKER) (test qaxd=639) 21.5 % 40.1-51.0 THROMBOELASTOGRAPH (TEG)2018-11-14 22:04:00 Test Item Value Reference Range Comments TEG ACTIVATED CLOTTING TIME (BEAKER) (test 7.7 minutes 4.0-7.0 ikty=0164) TEG FIBRINOGEN ACTIVITY (BEAKER) (test 72.3 degrees 61.0-73.0 fffb=7720) TEG PLT. AGGREGATION (BEAKER) (test jxlf=4038) 70.7 MM 55.0-65.0 TEG FIBRINOLYSIS (BEAKER) (test jmpl=7138) 0.0 % 0.0-5.0 TGH ACTIVATED CLOTTING TIME (BEAKER) (test 8.0 minutes 4.0-7.0 hpfg=4707) TGH FIBRINOGEN ACTIVITY (BEAKER) (test 71.7 degrees 61.0-73.0 aqok=6557) TGH PLT. AGGREGATION (BEAKER) (test kyyz=5374) 63.6 MM 55.0-65.0 TGH FIBRINOLYSIS (BEAKER) (test lgog=9024) 2.7 % 0.0-5.0 RAD, CHEST, 1 VIEW, NON [id number] 21:29:00Reason for exam:->CVC placementShould this be performed at the bedside?->YesFINAL REPORT EXAMINATION: AP PORTABLE CHEST RADIOGRAPH CLINICAL INDICATION: Central line placement IMPRESSION: Compared with 08/03/2018. Tip of the right- sided dialysis catheter projects over the right atrium. Tip of the left jugular central line projects over the superior mediastinum just to right mid of midline. The heart is enlarged as before. Mediastinal contours are grosslysimilar allowing for differences in technique and positioning. Opacities are noted in both lungs with a relatively symmetric predominantly central distribution. Although a component may reflect atelectasis, pulmonary edema should also be considered. A pneumonia or sequela from aspiration cannot be excluded. No evidence of a large pleural effusion or pneumothorax. Signed: Berna Robles MDReport Verified Date/Time: 11/14/2018 21:29:04 Reading Location : [address] Reading Room CBC W/PLT COUNT & AUTO [id number] 21:06:00 Test Item Value Reference Range Comments WHITE BLOOD CELL COUNT (BEAKER) (test mvag=060) 14.9 K/ L 3.5-10.5 RED BLOOD CELL COUNT (BEAKER) (test vwrl=406) 2.81 M/ L 4.63-6.08 HEMOGLOBIN (BEAKER) (test tiht=398) 7.3 GM/DL 13.7-17.5 HEMATOCRIT (BEAKER) (test ofnu=925) 23.3 % 40.1-51.0 MEAN CORPUSCULAR VOLUME (BEAKER) (test vwcp=087) 82.9 fL 79.0-92.2 MEAN CORPUSCULAR HEMOGLOBIN (BEAKER) (test 26.0 pg 25.7-32.2 zedp=748) MEAN CORPUSCULAR HEMOGLOBIN CONC (BEAKER) (test 31.3 GM/DL 32.3-36.5 kblh=962) RED CELL DISTRIBUTION WIDTH (BEAKER) (test 25.6 % 11.6-14.4 xchw=376) PLATELET COUNT (BEAKER) (test jakd=615) 265 K/CU MM 150-450 MEAN PLATELET VOLUME (BEAKER) (test kyfp=563) 9.1 fL 9.4-12.4 NUCLEATED RED BLOOD CELLS (BEAKER) (test 0 /100 WBC 0-0 kycv=901) (CELLAVISION MANUAL DIFF)2018-11-14 21:06:00 Test Item Value Reference Range Comments NEUTROPHILS - REL (CELLAVISION)(BEAKER) (test 81 % agbc=1270) LYMPHOCYTES - REL (CELLAVISION)(BEAKER) (test 8 % imvp=9117) MONOCYTES - REL (CELLAVISION)(BEAKER) (test 6 % ckgb=7916) EOSINOPHILS - REL (CELLAVISION)(BEAKER) (test 3 % okav=9498) MYELOCYTES - REL (CELLAVISION)(BEAKER) (test 1 % 0-0 frrx=7245) BANDS - REL (CELLAVISION)(BEAKER) (test 1 % 0-10 qpdj=7960) NEUTROPHILS - ABS (CELLAVISION)(BEAKER) (test 12.07 K/ul 1.78-5.38 gllt=8084) LYMPHOCYTES - ABS (CELLAVISION)(BEAKER) (test 1.19 K/ul 1.32-3.57 kgbt=8521) MONOCYTES - ABS (CELLAVISION)(BEAKER) (test 0.89 K/uL 0.30-0.82 zmwu=5895) EOSINOPHILS - ABS (CELLAVISION)(BEAKER) (test 0.45 K/uL 0.04-0.54 ayen=2589) MYELOCYTES-ABS (CELLAVISION)(BEAKER) (test 0.15 K/uL 0.00-0.00 nobl=7385) BANDS - ABS (CELLAVISION)(BEAKER) (test 0.15 K/uL 0.00-0.80 exxn=2533) TOTAL COUNTED (BEAKER) (test yasr=4046) 100 MANUAL NRBC PER 100 CELLS (BEAKER) (test 1 /100 WBC 0-0 jssv=8540) WBC MORPHOLOGY (BEAKER) (test llac=248) Normal PLT MORPHOLOGY (BEAKER) (test ytjm=835) Normal POLYCHROMATOPHILLIC RBCS(BEAKER) (test yofg=624) 2+ moderate HYPOCHROMIA (BEAKER) (test jrfu=197) 1+ few ANISOCYTOSIS (BEAKER) (test ncdc=127) 2+ moderate MICROCYTES (BEAKER) (test emlg=134) 2+ moderate MACROCYTES (BEAKER) (test bnwh=869) 1+ few POIKILOCYTES (BEAKER) (test xszz=412) 1+ few ELLIPTOCYTES (BEAKER) (test subr=367) 1+ few OVALOCYTES (BEAKER) (test zkvg=431) 1+ few TEAR DROP CELLS (BEAKER) (test jnfh=131) 1+ few JAYME CELLS (BEAKER) (test ihtw=880) 1+ few ARTIFACT (CELLAVISION)(BEAKER) (test wuwa=4506) Present PLATELET CONCENTRATION (CELLAVISION)(BEAKER) Adequate (test fxdl=6343) Received comment: User comments: Slide comments:PROTHROMBIN TIME/[id number] 19:01:00 Test Item Value Reference Range Comments PROTIME (BEAKER) (test xqgx=203) 17.9 seconds 11.9-14.2 INR (BEAKER) (test ylfk=178) 1.6 <=5.9 Effective 10/27/2018: PT Reference Range ChangeNew: 11.9-14.2 Previous: 11.7- 14.7RECOMMENDED COUMADIN/WARFARIN INR THERAPY RANGESSTANDARD DOSE: 2.0-3.0 Includes: PROPHYLAXIS for venous thrombosis, systemic embolization; TREATMENT for venous thrombosis and/or pulmonary embolus.HIGH RISK: Target INR is2.5-3.5 for patients wiht mechanical heart valves.COMPREHENSIVE METABOLIC [id number] 18:58:00 Test Item Value Reference Range Comments TOTAL PROTEIN (BEAKER) 4.3 gm/dL 6.0-8.3 (test zycq=403) ALBUMIN (BEAKER) (test 2.4 g/dL 3.5-5.0 mtpk=5961) ALKALINE PHOSPHATASE 253 U/L 40-150 (BEAKER) (test cqxg=213) BILIRUBIN TOTAL (BEAKER) 1.9 mg/dL 0.2-1.2 (test geqq=302) SODIUM (BEAKER) (test 136 meq/L 136-145 aypq=763) POTASSIUM (BEAKER) (test 4.4 meq/L 3.5-5.1 ywiz=564) CHLORIDE (BEAKER) (test 104 meq/L 98-107 rdpm=064) CO2 (BEAKER) (test 21 meq/L 22-29 vowf=285) BLOOD UREA NITROGEN 56 mg/dL 7-21 (BEAKER) (test yjjg=640) CREATININE (BEAKER) (test 3.63 mg/dL 0.57-1.25 aswg=302) GLUCOSE RANDOM (BEAKER) 131 mg/dL 70-105 (test uasr=726) CALCIUM (BEAKER) (test 8.0 mg/dL 8.4-10.2 hmte=353) AST (SGOT) (BEAKER) (test 16 U/L 5-34 qfbc=964) ALT (SGPT) (BEAKER) (test 13 U/L 6-55 eeoc=827) EGFR (BEAKER) (test 17 mL/min/1.73 sq m ESTIMATED GFR IS NOT elvi=9461) ACCURATE CREATININE CLEARANCE IN PREDICTING GLOMERULAR FILTRATION RATE. ESTIMATED GFR IS NOT APPLICABLE FOR DIALYSIS PATIENTS. HEMOGLOBIN AND [id number] 18:39:00 Test Item Value Reference Range Comments HEMOGLOBIN (BEAKER) (test euym=855) 6.7 GM/DL 13.7-17.5 HEMATOCRIT (BEAKER) (test xsgm=235) 21.7 % 40.1-51.0 (CELLAVISION MANUAL DIFF)2018-08-03 14:27:00 Test Item Value Reference Range Comments NEUTROPHILS - REL (CELLAVISION)(BEAKER) (test 82 % nknx=6187) LYMPHOCYTES - REL (CELLAVISION)(BEAKER) (test 5 % iypa=0966) MONOCYTES - REL (CELLAVISION)(BEAKER) (test 6 % dphg=9912) EOSINOPHILS - REL (CELLAVISION)(BEAKER) (test 6 % anjf=1114) BASOPHILS - REL (CELLAVISION)(BEAKER) (test 1 % rijz=9909) NEUTROPHILS - ABS (CELLAVISION)(BEAKER) (test 8.61 K/ul 1.78-5.38 hmwy=4606) LYMPHOCYTES - ABS (CELLAVISION)(BEAKER) (test 0.53 K/ul 1.32-3.57 kyha=3147) MONOCYTES - ABS (CELLAVISION)(BEAKER) (test 0.63 K/uL 0.30-0.82 uvrv=9965) EOSINOPHILS - ABS (CELLAVISION)(BEAKER) (test 0.63 K/uL 0.04-0.54 iqzs=1224) BASOPHILS - ABS (CELLAVISION)(BEAKER) (test 0.11 K/uL 0.01-0.08 xthd=4326) TOTAL COUNTED (BEAKER) (test jedj=0840) 100 MANUAL NRBC PER 100 CELLS (BEAKER) (test 1 /100 WBC 0-0 vfsc=7981) WBC MORPHOLOGY (BEAKER) (test ercp=364) Normal PLT MORPHOLOGY (BEAKER) (test zszq=276) Normal POLYCHROMATOPHILLIC RBCS(BEAKER) (test raht=969) 1+ few HYPOCHROMIA (BEAKER) (test bdwq=187) 1+ few ANISOCYTOSIS (BEAKER) (test micy=055) 1+ few MICROCYTES (BEAKER) (test rzil=316) 1+ few POIKILOCYTES (BEAKER) (test xjhb=692) 1+ few ELLIPTOCYTES (BEAKER) (test tbtd=186) 1+ few OVALOCYTES (BEAKER) (test zjnp=821) 2+ moderate TEAR DROP CELLS (BEAKER) (test pheh=211) 1+ few ARTIFACT (CELLAVISION)(BEAKER) (test mjap=7670) Present PLATELET CONCENTRATION (CELLAVISION)(BEAKER) Adequate (test uxzy=7922) Received comment: User comments: Slide comments:CALCIUM, [id number] 07:12 :00 Test Item Value Reference Range Comments CALCIUM IONIZED (BEAKER) (test uaey=063) 1.10 mmol/L 1.12-1.27 PH, BLOOD (BEAKER) (test xmxg=5184) 7.35 [id number] 06:59:00 Test Item Value Reference Range Comments PHOSPHORUS (BEAKER) (test jctn=762) 4.3 mg/dL 2.3-4.7 [id number] 06:59:00 Test Item Value Reference Range Comments MAGNESIUM (BEAKER) (test xyjp=100) 1.7 mg/dL 1.6-2.6 COMPREHENSIVE METABOLIC [id number] 06:59:00 Test Item Value Reference Range Comments TOTAL PROTEIN (BEAKER) 5.9 gm/dL 6.0-8.3 (test mhba=926) ALBUMIN (BEAKER) (test 3.6 g/dL 3.5-5.0 rbsy=4522) ALKALINE PHOSPHATASE 130 U/L 40-150 (BEAKER) (test itvi=867) BILIRUBIN TOTAL (BEAKER) 1.0 mg/dL 0.2-1.2 (test qupu=091) SODIUM (BEAKER) (test 139 meq/L 136-145 ghzx=015) POTASSIUM (BEAKER) (test 4.5 meq/L 3.5-5.1 rzfp=551) CHLORIDE (BEAKER) (test 108 meq/L 98-107 kocc=879) CO2 (BEAKER) (test 22 meq/L 22-29 idhq=666) BLOOD UREA NITROGEN 51 mg/dL 7-21 (BEAKER) (test sgao=870) CREATININE (BEAKER) (test 1.76 mg/dL 0.57-1.25 rnbv=289) GLUCOSE RANDOM (BEAKER) 91 mg/dL 70-105 (test fqrm=485) CALCIUM (BEAKER) (test 9.3 mg/dL 8.4-10.2 jsws=196) AST (SGOT) (BEAKER) (test 12 U/L 5-34 xcyy=654) ALT (SGPT) (BEAKER) (test 6 U/L 6-55 nrmd=649) EGFR (BEAKER) (test 38 mL/min/1.73 sq m ESTIMATED GFR IS NOT enti=7793) ACCURATE CREATININE CLEARANCE IN PREDICTING GLOMERULAR FILTRATION RATE. ESTIMATED GFR IS NOT APPLICABLE FOR DIALYSIS PATIENTS. B-TYPE NATRIURETIC FACTOR (BNP)2018-08-03 06:47:00 Test Item Value Reference Range Comments B-TYPE NATRIURETIC PEPTIDE (BEAKER) (test 646 pg/mL 0-100 uvto=247) CBC W/PLT COUNT & AUTO [id number] 06:32:00 Test Item Value Reference Range Comments WHITE BLOOD CELL COUNT (BEAKER) (test rdqv=116) 10.5 K/ L 3.5-10.5 RED BLOOD CELL COUNT (BEAKER) (test dwpq=472) 2.93 M/ L 4.63-6.08 HEMOGLOBIN (BEAKER) (test pluf=522) 7.5 GM/DL 13.7-17.5 HEMATOCRIT (BEAKER) (test cswc=681) 25.7 % 40.1-51.0 MEAN CORPUSCULAR VOLUME (BEAKER) (test lbsz=646) 87.7 fL 79.0-92.2 MEAN CORPUSCULAR HEMOGLOBIN (BEAKER) (test 25.6 pg 25.7-32.2 pylf=558) MEAN CORPUSCULAR HEMOGLOBIN CONC (BEAKER) (test 29.2 GM/DL 32.3-36.5 usbu=709) RED CELL DISTRIBUTION WIDTH (BEAKER) (test 16.9 % 11.6-14.4 hegm=174) PLATELET COUNT (BEAKER) (test uvwl=502) 321 K/CU MM 150-450 MEAN PLATELET VOLUME (BEAKER) (test ngmt=676) 10.1 fL 9.4-12.4 NUCLEATED RED BLOOD CELLS (BEAKER) (test 0 /100 WBC 0-0 hdop=979) RAD, CHEST, 1 VIEW, NON [id number] 00:54:00Reason for exam:->edemaShould this be performed at the bedside?->YesFINAL REPORT INDICATION: edema COMPARISON: January 05, 2013 TECHNIQUE: Single frontal view of the chest. FINDINGS: Lungs and pleura: Clear lungs. No effusion.Heart and mediastinum:Unchanged cardiomegaly. Unremarkable mediastinal contours.Osseous structures: No acute abnormality.Other: None. IMPRESSION: No pulmonary edema. Signed: Guerline Webb MDReport Verified Date/Time: 08/03/2018 00:54:17 Reading Location: [address] Neuro Reading Room BASIC METABOLIC [id number] 07:08:00 Test Item Value Reference Range Comments SODIUM (BEAKER) (test 138 meq/L 136-145 gjhp=011) POTASSIUM (BEAKER) (test 4.8 meq/L 3.5-5.1 rwsy=127) CHLORIDE (BEAKER) (test 107 meq/L 98-107 jwjj=743) CO2 (BEAKER) (test 19 meq/L 22-29 lwwz=888) BLOOD UREA NITROGEN 67 mg/dL 7-21 (BEAKER) (test mkjp=165) CREATININE (BEAKER) (test 2.06 mg/dL 0.57-1.25 yrvp=118) GLUCOSE RANDOM (BEAKER) 110 mg/dL 70-105 (test taco=715) CALCIUM (BEAKER) (test 9.5 mg/dL 8.4-10.2 dbgn=287) EGFR (BEAKER) (test 32 mL/min/1.73 sq m ESTIMATED GFR IS NOT nadn=6630) ACCURATE CREATININE CLEARANCE IN PREDICTING GLOMERULAR FILTRATION RATE. ESTIMATED GFR IS NOT APPLICABLE FOR DIALYSIS PATIENTS. CBC (HEMOGRAM ONLY)2018-08-02 06:53:00 Test Item Value Reference Range Comments WHITE BLOOD CELL COUNT (BEAKER) (test hfmm=848) 10.6 K/ L 3.5-10.5 RED BLOOD CELL COUNT (BEAKER) (test jyxl=658) 2.97 M/ L 4.63-6.08 HEMOGLOBIN (BEAKER) (test ecpc=337) 7.9 GM/DL 13.7-17.5 HEMATOCRIT (BEAKER) (test bjnw=574) 25.7 % 40.1-51.0 MEAN CORPUSCULAR VOLUME (BEAKER) (test afsu=565) 86.5 fL 79.0-92.2 MEAN CORPUSCULAR HEMOGLOBIN (BEAKER) (test 26.6 pg 25.7-32.2 xuko=971) MEAN CORPUSCULAR HEMOGLOBIN CONC (BEAKER) (test 30.7 GM/DL 32.3-36.5 fmfq=789) RED CELL DISTRIBUTION WIDTH (BEAKER) (test 16.5 % 11.6-14.4 fawn=527) PLATELET COUNT (BEAKER) (test bxpv=555) 319 K/CU MM 150-450 MEAN PLATELET VOLUME (BEAKER) (test yxvc=818) 10.4 fL 9.4-12.4 NUCLEATED RED BLOOD CELLS (BEAKER) (test 1 /100 WBC 0-0 zyab=987) POCT-GLUCOSE [id number] 21:37:00 Test Item Value Reference Range Comments POC-GLUCOSE METER (BEAKER) 158 mg/dL 70-110 TESTED AT [facility] [address] [place] [address] (test ityk=6348) [facility] [address] BASIC METABOLIC [id number] 19:11:00 Test Item Value Reference Range Comments SODIUM (BEAKER) (test 135 meq/L 136-145 yban=979) POTASSIUM (BEAKER) (test 4.8 meq/L 3.5-5.1 kokg=960) CHLORIDE (BEAKER) (test 107 meq/L 98-107 czcr=061) CO2 (BEAKER) (test 19 meq/L 22-29 edzo=326) BLOOD UREA NITROGEN 78 mg/dL 7-21 (BEAKER) (test jqya=522) CREATININE (BEAKER) (test 2.20 mg/dL 0.57-1.25 spyv=592) GLUCOSE RANDOM (BEAKER) 182 mg/dL 70-105 (test rbpy=597) CALCIUM (BEAKER) (test 9.3 mg/dL 8.4-10.2 cpax=971) EGFR (BEAKER) (test 30 mL/min/1.73 sq m ESTIMATED GFR IS NOT ypeh=3208) ACCURATE CREATININE CLEARANCE IN PREDICTING GLOMERULAR FILTRATION RATE. ESTIMATED GFR IS NOT APPLICABLE FOR DIALYSIS PATIENTS. CREATININE, RANDOM [id number] 13:56:00 Test Item Value Reference Range Comments CREATININE URINE (BEAKER) (test eexv=980) 40.1 mg/dL Reference Range: No NormalsSODIUM, RANDOM [id number] 13:56:00 Test Item Value Reference Range Comments SODIUM URINE (BEAKER) (test kcps=216) 70 meq/L Reference Range: No NormalsUREA NITROGEN, RANDOM [id number] 13:56:00 Test Item Value Reference Range Comments UREA NITROGEN URINE (BEAKER) (test sepi=999) 694 mg/dL Reference Range: No NormalsURINALYSIS W/ [id number] 13:55:00 Test Item Value Reference Range Comments COLOR (BEAKER) (test omru=814) Light Yellow CLARITY (BEAKER) (test otud=029) Clear SPECIFIC GRAVITY UA (BEAKER) (test umoz=114) 1.010 1.001-1.035 PH UA (BEAKER) (test edhy=699) 6.5 5.0-8.0 PROTEIN UA (BEAKER) (test hibx=610) Negative Negative GLUCOSE UA (BEAKER) (test rush=232) Negative Negative KETONES UA (BEAKER) (test tmtn=023) Negative Negative BILIRUBIN UA (BEAKER) (test qpdq=632) Negative Negative BLOOD UA (BEAKER) (test hrvm=226) Negative Negative NITRITE UA (BEAKER) (test ocej=805) Negative Negative LEUKOCYTE ESTERASE UA (BEAKER) (test feae=053) Negative Negative UROBILINOGEN UA (BEAKER) (test nqva=142) 0.2 mg/dL 0.2-1.0 RBC UA (BEAKER) (test jbvn=117) 0 /HPF WBC UA (BEAKER) (test qhiz=275) 0 /HPF SOURCE(BEAKER) (test oegs=1516) CBC W/PLT COUNT & AUTO [id number] 07:31:00 Test Item Value Reference Range Comments WHITE BLOOD CELL COUNT (BEAKER) (test qpsg=507) 11.1 K/ L 3.5-10.5 RED BLOOD CELL COUNT (BEAKER) (test rwxw=375) 2.63 M/ L 4.63-6.08 HEMOGLOBIN (BEAKER) (test bdns=640) 6.8 GM/DL 13.7-17.5 HEMATOCRIT (BEAKER) (test wpkn=979) 22.9 % 40.1-51.0 MEAN CORPUSCULAR VOLUME (BEAKER) (test lhte=077) 87.1 fL 79.0-92.2 MEAN CORPUSCULAR HEMOGLOBIN (BEAKER) (test 25.9 pg 25.7-32.2 kdwm=968) MEAN CORPUSCULAR HEMOGLOBIN CONC (BEAKER) (test 29.7 GM/DL 32.3-36.5 qzkv=059) RED CELL DISTRIBUTION WIDTH (BEAKER) (test 16.6 % 11.6-14.4 cisr=184) PLATELET COUNT (BEAKER) (test fanj=201) 302 K/CU MM 150-450 MEAN PLATELET VOLUME (BEAKER) (test iofz=245) 10.9 fL 9.4-12.4 NUCLEATED RED BLOOD CELLS (BEAKER) (test 1 /100 WBC 0-0 wfxj=661) NEUTROPHILS RELATIVE PERCENT (BEAKER) (test 69 % jpgz=274) LYMPHOCYTES RELATIVE PERCENT (BEAKER) (test 12 % shka=530) MONOCYTES RELATIVE PERCENT (BEAKER) (test 12 % epne=541) EOSINOPHILS RELATIVE PERCENT (BEAKER) (test 5 % pplu=005) BASOPHILS RELATIVE PERCENT (BEAKER) (test 1 % pmuj=713) NEUTROPHILS ABSOLUTE COUNT (BEAKER) (test 7.66 K/ L 1.78-5.38 gcor=371) LYMPHOCYTES ABSOLUTE COUNT (BEAKER) (test 1.32 K/ L 1.32-3.57 ltcm=817) MONOCYTES ABSOLUTE COUNT (BEAKER) (test 1.32 K/ L 0.30-0.82 lgep=859) EOSINOPHILS ABSOLUTE COUNT (BEAKER) (test 0.52 K/ L 0.04-0.54 iqey=676) BASOPHILS ABSOLUTE COUNT (BEAKER) (test 0.09 K/ L 0.01-0.08 hypm=760) IMMATURE GRANULOCYTES-RELATIVE PERCENT (BEAKER) 1 % 0-1 (test ohgw=1635) BASIC METABOLIC [id number] 07:26:00 Test Item Value Reference Range Comments SODIUM (BEAKER) (test 136 meq/L 136-145 pvwo=133) POTASSIUM (BEAKER) (test 5.2 meq/L 3.5-5.1 akor=045) CHLORIDE (BEAKER) (test 106 meq/L 98-107 lbsb=002) CO2 (BEAKER) (test 22 meq/L 22-29 rnrl=719) BLOOD UREA NITROGEN 93 mg/dL 7-21 (BEAKER) (test flec=438) CREATININE (BEAKER) (test 2.30 mg/dL 0.57-1.25 blmk=710) GLUCOSE RANDOM (BEAKER) 113 mg/dL 70-105 (test drxz=468) CALCIUM (BEAKER) (test 9.2 mg/dL 8.4-10.2 svup=015) EGFR (BEAKER) (test 28 mL/min/1.73 sq m ESTIMATED GFR IS NOT tluy=3312) ACCURATE CREATININE CLEARANCE IN PREDICTING GLOMERULAR FILTRATION RATE. ESTIMATED GFR IS NOT APPLICABLE FOR DIALYSIS PATIENTS. [id number] 07:25:00 Test Item Value Reference Range Comments MAGNESIUM (BEAKER) (test styv=428) 2.3 mg/dL 1.6-2.6 [id number] 07:06:00 Test Item Value Reference Range Comments PROTIME (BEAKER) (test mfpt=625) 15.7 seconds 11.7-14.7 INR (BEAKER) (test mnjz=109) 1.2 <=5.9 PARTIAL THROMBOPLASTIN TIME (BEAKER) (test 31.7 seconds 22.5-36.0 rgju=740) RECOMMENDED COUMADIN/WARFARIN INR THERAPY RANGESSTANDARD DOSE: 2.0 - 3.0 Includes: PROPHYLAXIS forvenous thrombosis, systemic embolization; TREATMENT for venous thrombosis and/or pulmonary embolus.HIGH RISK: Target INR is 2.5-3.5 for patients with mechanical heart valves.
[2019-02-04] MEDS ORDERED: NA CHLORIDE 0.9% 500 ML ONE (16:17)
[2019-02-04] MEDS ORDERED: FENTANYL CITR 100 MCG/2 ML ONE (17:16)
--- NOTE | 2019-02-04 17:29 | RAD REPORT ---
EXAM DESCRIPTION: USExtremity Venous Uni Ltd02/04/2019 5:09 pm CLINICAL HISTORY: Left arm swelling COMPARISON: None FINDINGS: The left internal jugular, left subclavian, left cephalic, left axillary, left brachial, , left ulnar and left radial veins are generally compressible and demonstrate. Doppler demonstrates go od flow Echogenic material consistent with acute thrombus is present within the distal left basilic vein. The vein is not compressible. Moderate left elbow joint effusion IMPRESSION: Acute thrombus within the left basilic vein Moderate left elbow joint effusion
[2019-02-04 17:31] LABS: Protime INR 1.2
[2019-02-04 17:42] LABS: Potassium 4.2 mmol/L (3.5-5.1)
[2019-02-04 18:00] LABS: Absolute Lymphocytes (CBC) 0.5 K/uL (0.7-4.9); Basophils % 1.5 % (0-1.3); Hematocrit 43.4 % (39.6-49.0); Lymphocytes % 3.9 % (15.3-44.8); RBC Red Blood Cell Count 4.91 M/uL (4.33-5.43)
--- NOTE | 2019-02-04 18:28 | ER ---
Nurse's Notes [facility] Name: Tam Escalante Age: 73 yrs Sex: Male : 1945 Arrival Date: 02/04/2019 Time: 14:19 Bed 18 Private MD: Diagnosis: Thrombus of superficial basilic vein;Cellulitis of left upper limb Presentation: 02/04 14:43 Presenting complaint: Patient states: Swelling to the left hand and left elbow since aj1 Thursday night. Transition of care: patient was not received from another setting of care. Onset of symptoms was February 02, 2019. Risk Assessment: Do you want to hurt yourself or someone else? Patient reports no desire to harm self or others. Initial Sepsis Screen: Does the patient meet any 2 criteria? HR > 90 bpm. No. Patient's initial sepsis screen is negative. Does the patient have a suspected source of infection? Yes: Skin breakdown/wound. Care prior to arrival: None. 14:43 Method Of Arrival: Ambulatory aj 14:43 Acuity: SHAYNE 3 aj1 Triage Assessment: 14:45 General: Appears in no apparent distress. comfortable, Behavior is calm, cooperative, aj1 appropriate for age. Pain: Complains of pain in left arm Pain currently is 8 out of 10 on a pain scale. Neuro: Level of Consciousness is awake, alert, obeys commands. Cardiovascular: Patient's skin is warm and dry. Respiratory: Airway is patent Respiratory effort is even, unlabored, Respiratory pattern is regular, symmetrical. Historical: - Allergies: 14:45 No Known Allergies; aj1 - Home Meds: 16:48 allopurinol 100 mg Oral tab 1 tab once daily [Active]; colchicine 0.6 mg Oral tab as tw2 needed [Active]; folic acid 1 mg Oral tab 1 tab once daily [Active]; isosorbide dinitrate 30 mg Oral tab daily [Active]; metoprolol tartrate 100 mg Oral tab 2 times per day [Active]; torsemide 20 mg Oral tab 1 tab once daily [Active]; trazodone 50 mg Oral tab daily [Active]; Xarelto 15 mg Oral tab daily [Active]; - PMHx: 14:45 GI Bleed; Hypertension; Stomach ulcer; ESRD; Dialysis; aj1 - Immunization history:: Adult Immunizations. - Ebola Screening: : Patient denies travel to an Ebola-affected area in the 21 days before illness onset. - Social history:: Smoking status: . Screenin:46 Abuse screen: Denies threats or abuse. Nutritional screening: No deficits noted. tw2 Tuberculosis screening: No symptoms or risk factors identified. Fall Risk Secondary diagnosis (15 points) impaired mobility. Assessment: 15:00 General: Appears in no apparent distress. slender, unkempt, Behavior is calm, tw2 appropriate for age. Pain: Complains of pain in left hand and left wrist and dorsal aspect of left forearm. Neuro: Level of Consciousness is awake, alert, obeys commands, Oriented to person, place, time, situation. Cardiovascular: Heart tones S1 S2 Patient's skin is warm and dry. Respiratory: Airway is patent Respiratory effort is even, unlabored, Respiratory pattern is regular, symmetrical, Breath sounds are clear bilaterally. GI: No signs and/or symptoms were reported involving the gastrointestinal system. Abdomen is flat, Bowel sounds present X 4 quads. : No signs and/or symptoms were reported regarding the genitourinary system. EENT: No signs and/or symptoms were reported regarding the EENT system. Derm: Skin is fragile, is thin, with poor turgor has skin tears on noted to Right FA, bandaids in place Skin is dry, Skin temperature is cool. Musculoskeletal: Swelling present in left hand and left wrist and dorsal aspect of left forearm with erythema noted to LEFT hand and arm. 16:00 Reassessment: Patient appears in no apparent distress at this time. No changes from tw2 previously documented assessment. Patient and/or family updated on plan of care and expected duration. Pain level reassessed. Patient is alert, oriented x 3, equal unlabored respirations, skin warm/dry/pink. 16:40 Reassessment: US at bedside at this time, IV and blood work pending. tw2 17:30 Reassessment: Patient appears in no apparent distress at this time. No changes from tw2 previously documented assessment. Patient and/or family updated on plan of care and expected duration. Pain level reassessed. Patient is alert, oriented x 3, equal unlabored respirations, skin warm/dry/pink. 18:09 Reassessment: Patient appears in no apparent distress at this time. Patient and/or tw2 family updated on plan of care and expected duration. Pain level reassessed. Patient is alert, oriented x 3, equal unlabored respirations, skin warm/dry/pink. Patient states feeling better. 18:57 Reassessment: Patient appears in no apparent distress at this time. No changes from tw2 previously documented assessment. Patient and/or family updated on plan of care and expected duration. Pain level reassessed. Patient is alert, oriented x 3, equal unlabored respirations, skin warm/dry/pink. Vital Signs: 14:45 BP 141 / 86; Pulse 91; Resp 20; Temp 97.4; Pulse Ox 99% on R/A; Weight 82.55 kg (R); aj1 Height 5 ft. 9 in. (175.26 cm) (R); Pain 8/10; 15:29 BP 112 / 63; Pulse 91; Resp 17; Pulse Ox 96% on R/A; tw2 17:30 BP 117 / 48; Pulse 85; Resp 17; Pulse Ox 100% on R/A; tw2 18:09 BP 115 / 68; Pulse 93; Resp 17; Pulse Ox 100% on R/A; tw2 14:45 Body Mass Index 26.88 (82.55 kg, 175.26 cm) aj1 ED Course: 14:19 Patient arrived in ED. as 14:45 Triage completed. aj1 14:45 Arm band placed on Patient placed in waiting room, Patient notified of wait time. aj1 14:46 Bed in low position. Call light in reach. Side rails up X 1. Pulse ox on. NIBP on. tw2 15:12 Blanca Rice RN is Primary Nurse. tw2 16:02 [facility] White [facility]-C [facility] snw 16:02 Joe Yousif MD is Attending Physician. snw 16:35 Missed attempt(s): 22 gauge in right antecubital area. Bleeding controlled, band aid tw2 applied, catheter tip intact. Missed attempt(s): 22 gauge in right antecubital area. ACE Hernández and ACE Duque notified of need for blood and iv access at this time, provider notified as well.. Bleeding controlled, band aid applied, catheter tip intact. 17:11 US Extremity Venous Unilateral Ltd In Process Unspecified. EDMS 17:18 Initial lab(s) drawn, by me, sent to lab. Inserted saline lock: 22 gauge in right iw antecubital area, using aseptic technique. Blood collected. 18:26 Anna Roca MD is Referral Physician. snw 18:57 No provider procedures requiring assistance completed. IV discontinued, intact, tw2 bleeding controlled, No redness/swelling at site. Pressure dressing applied. Administered Medications: 17:20 Drug: fentaNYL (PF) 25 mcg {Note: RASS 0.} Route: IVP; Site: right antecubital; tw2 18:57 Follow up: Response: No adverse reaction; Pain is decreased; RASS: Alert and Calm (0) tw2 17:22 Drug: NS 0.9% 1000 ml Route: IV; Rate: 75 ml/hr; Site: right antecubital; tw2 18:57 Follow up: Response: No adverse reaction; IV Status: Order to discontinue infusion tw2 Outcome: 18:27 Discharge ordered by . snw 18:57 Patient left the ED. tw2 18:57 Discharged to home ambulatory. tw2 18:57 Condition: stable 18:57 Discharge instructions given to patient, Instructed on discharge instructions, follow up and referral plans. no drinking with medication, no driving heavy equipment, medication usage, Demonstrated understanding of instructions, follow-up care, medications, Prescriptions given X 1. Signatures: Dispatcher [employer] Letty Edmonds, ACE RN aj1 Brielle White, PASSENGER RATE CLERK-C PASSENGER RATE CLERK-Mamiw Savannah Honeycutt Irene, RN RN iw Blanca Rice RN RN tw2
--- NOTE | 2019-02-04 18:28 | EDPHYS ---
Physician Documentation [facility] Name: Tam Escalante Age: 73 yrs Sex: Male : 1945 Arrival Date: 02/04/2019 Time: 14:19 Bed 18 Private MD: ANGELA Physician Joe Yousif HPI: 02/04 16:36 This 73 yrs old Male presents to ER via Ambulatory with complaints of Hand snw Swelling. 16:36 The patient or guardian reports pain, swelling, tenderness. The complaints affect the snw left hand diffusely. Context: The problem was sustained at home. Onset: The symptoms/episode began/occurred suddenly, and became worse. Associated signs and symptoms: The patient has no apparent associated signs or symptoms. Severity of symptoms: At their worst the symptoms were moderate, severe. The patient has not experienced similar symptoms in the past. pt was at dialysis today, sees Dr. Harrison. Began dialysis 1.5 months ago. Historical: - Allergies: 14:45 No Known Allergies; aj1 - Home Meds: 16:48 allopurinol 100 mg Oral tab 1 tab once daily [Active]; colchicine 0.6 mg Oral tab as tw2 needed [Active]; folic acid 1 mg Oral tab 1 tab once daily [Active]; isosorbide dinitrate 30 mg Oral tab daily [Active]; metoprolol tartrate 100 mg Oral tab 2 times per day [Active]; torsemide 20 mg Oral tab 1 tab once daily [Active]; trazodone 50 mg Oral tab daily [Active]; Xarelto 15 mg Oral tab daily [Active]; - PMHx: 14:45 GI Bleed; Hypertension; Stomach ulcer; ESRD; Dialysis; aj1 - Immunization history:: Adult Immunizations. - Ebola Screening: : Patient denies travel to an Ebola-affected area in the 21 days before illness onset. - Social history:: Smoking status: . ROS: 16:35 Constitutional: Negative for fever, chills, and weight loss, Eyes: Negative for injury, snw pain, redness, and discharge, ENT: Negative for injury, pain, and discharge, Neck: Negative for injury, pain, and swelling, Cardiovascular: Negative for chest pain, palpitations, and edema, Respiratory: Negative for shortness of breath, cough, wheezing, and pleuritic chest pain, Abdomen/GI: Negative for abdominal pain, nausea, vomiting, diarrhea, and constipation, Back: Negative for injury and pain, : Negative for injury, bleeding, discharge, and swelling, Skin: Negative for injury, rash, and discoloration, Neuro: Negative for headache, weakness, numbness, tingling, and seizure. 16:35 MS/extremity: Positive for pain, swelling, of the dorsal aspect of left elbow, forearm, left wrist and left hand. Exam: 16:33 Head/Face: Normocephalic, atraumatic. Eyes: Pupils equal round and reactive to light, snw extra-ocular motions intact. Lids and lashes normal. Conjunctiva and sclera are non-icteric and not injected. Cornea within normal limits. Periorbital areas with no swelling, redness, or edema. ENT: Nares patent. No nasal discharge, no septal abnormalities noted. Tympanic membranes are normal and external auditory canals are clear. Oropharynx with no redness, swelling, or masses, exudates, or evidence of obstruction, uvula midline. Mucous membranes moist. Neck: Trachea midline, no thyromegaly or masses palpated, and no cervical lymphadenopathy. Supple, full range of motion without nuchal rigidity, or vertebral point tenderness. No Meningismus. Chest/axilla: Normal chest wall appearance and motion. Nontender with no deformity. No lesions are appreciated. Cardiovascular: Regular rate and rhythm with a normal S1 and S2. No gallops, + harsh holosystolic murmur, no rubs. Normal PMI, no JVD. No pulse deficits. Respiratory: Lungs have equal breath sounds bilaterally, clear to auscultation and percussion. No rales, rhonchi or wheezes noted. No increased work of breathing, no retractions or nasal flaring. Abdomen/GI: Soft, non-tender, with normal bowel sounds. No distension or tympany. No guarding or rebound. No evidence of tenderness throughout. Back: No spinal tenderness. No costovertebral tenderness. Full range of motion. Neuro: Awake and alert, GCS 15, oriented to person, place, time, and situation. Cranial nerves II-XII grossly intact. Motor strength 5/5 in all extremities. Sensory grossly intact. Cerebellar exam normal. Normal gait. 16:33 Constitutional: The patient appears alert, awake, uncomfortable. 16:33 Skin: Appearance: flushing, lesion(s), noted, and can be described as erythematous, edematous left hand up to mid humerus, located on the left arm. Vital Signs: 14:45 BP 141 / 86; Pulse 91; Resp 20; Temp 97.4; Pulse Ox 99% on R/A; Weight 82.55 kg (R); aj1 Height 5 ft. 9 in. (175.26 cm) (R); Pain 8/10; 15:29 BP 112 / 63; Pulse 91; Resp 17; Pulse Ox 96% on R/A; tw2 17:30 BP 117 / 48; Pulse 85; Resp 17; Pulse Ox 100% on R/A; tw2 18:09 BP 115 / 68; Pulse 93; Resp 17; Pulse Ox 100% on R/A; tw2 14:45 Body Mass Index 26.88 (82.55 kg, 175.26 cm) aj1 MDM: 16:02 Patient medically screened. snw 16:20 Data reviewed: vital signs, nurses notes. Data interpreted: Pulse oximetry: on room air snw is 96 %. Interpretation: acceptable. Counseling: I had a detailed discussion with the patient and/or guardian regarding: the historical points, exam findings, and any diagnostic results supporting the discharge/admit diagnosis, lab results. ED course: [facility] contacted. Pt was given 1gm Vanc and 60mg Gent post blood culture samples post dialysis. 17:02 ED course: + clot in superficial distal basilic. snw 18:25 Physician consultation: Darnell Harrison MD was called at 18:25, was contacted at 18:25, snw regarding consult, patient's condition, getting IV abx at dialysis. Cultures drawn prior to administration and sent. Basilic vein thrombus, on anticoagulation. Pt to f/u Dialysis. 02/04 16:12 Order name: CBC with Diff; Complete Time: 18:22 snw 02/04 16:12 Order name: Chem 7; Complete Time: 17:47 snw 02/04 16:12 Order name: US Extremity Venous Unilateral Ltd; Complete Time: 17:34 snw 02/04 16:12 Order name: PT-INR; Complete Time: 18:07 snw 02/04 16:12 Order name: Ptt, Activated; Complete Time: 18:07 snw 02/04 16:15 Order name: IV Start; Complete Time: 17:16 tw2 Administered Medications: 17:20 Drug: fentaNYL (PF) 25 mcg {Note: RASS 0.} Route: IVP; Site: right antecubital; tw2 18:57 Follow up: Response: No adverse reaction; Pain is decreased; RASS: Alert and Calm (0) tw2 17:22 Drug: NS 0.9% 1000 ml Route: IV; Rate: 75 ml/hr; Site: right antecubital; tw2 18:57 Follow up: Response: No adverse reaction; IV Status: Order to discontinue infusion tw2 Disposition: 02/04/19 18:27 Discharged to Home. Impression: Thrombus of superficial basilic vein, Cellulitis of left upper limb. - Condition is Stable. - Discharge Instructions: Cellulitis, Adult, Heat Therapy, Venous Thromboembolism Prevention. - Prescriptions for Tylenol- Codeine #3 300-30 mg Oral Tablet - take 2 tablets by ORAL route every 6 hours As needed; 15 tablet. - Medication Reconciliation Form, Thank You Letter, Antibiotic Education, Prescription Opioid Use form. - Follow up: Anna Roca MD; When: 2 - 3 days; Reason: Recheck today's complaints, Continuance of care, Re-evaluation by your physician. - Notes: Continue iv antibiotics at dialysis pending cultures. Warm compresses to left arm. Addendum: 02/06/2019 08:11 Co-signature as Attending Physician, Joe Yousif MD I agree with the assessment and c barber plan of care. Signatures: Dispatcher [employer] EDLetty Fletcher, RN RN aj1 Joe Yousif MD MD cha Therrien, Shelly, DOPING SUPERVISOR-C DOPING SUPERVISOR-Csnw Blanca Rice RN RN tw2 Corrections: (The following items were deleted from the chart) 02/04 18:57 18:27 02/04/2019 18:27 Discharged to Home. Impression: Thrombus of superficial basilic tw2 vein; Cellulitis of left upper limb. Condition is Stable. Forms are Medication Reconciliation Form, Thank You Letter, Antibiotic Education, Prescription Opioid Use. Follow up: Anna Roca; When: 2 - 3 days; Reason: Recheck today's complaints, Continuance of care, Re-evaluation by your physician. snw
[2019-02-04 19:25] VITALS: TEMP 97.4
[2019-02-04 19:27] VITALS: O2SAT 100
[2019-02-04 19:28] VITALS: BP 115/68
== END 2019-02-04 18:57 | disposition home or self-care (01) ==
LOC: ER 14:18
DX: I82.612 Acute embolism and thrombosis of superficial veins of left upper extremity (principal); L03.114 Cellulitis of left upper limb; I10 Essential (primary) hypertension; N18.6 End stage renal disease; Z99.2 Dependence on renal dialysis
CPT/HCPCS: 96361; 85025; 80048; 36415; 85610; 85730; 93971; 96374; 99284; J3010

== ENCOUNTER 2019-10-18 13:32 | Inpatient (IN) | payer BC, OTHER ==
--- OUTSIDE RECORDS SUMMARY | 2019-10-18 13:36 | XMS REPORT | Clinical Summary ---
:1945 Author Organization [facility] Address [address] [place] [address] Care Team Providers Name Role Phone MD Hunter Primary Care Provider Allergies No Known Allergies Medications Medication Sig Dispensed Refills Start Date End Date Status allopurinol Take 100 mg 0 07/21/2018 Activ e (ZYLOPRIM) 100 MG by mouth 2 tablet (two) times a day. torsemide (DEMADEX) Take 20 mg by 0 07/21/2018 Active 20 MG tablet mouth 2 (two) times a day. metoprolol tartrate Take 50 mg by 0 07/21/2018 Active (LOPRESSOR) 100 mg mouth 2 (two) tablet times a day. simvastatin (ZOCOR) Take 20 mg by 0 11/06/2018 Active 20 MG tablet mouth daily. folic acid Take 1 tablet 0 07/21/2018 Acti ve (FOLVITE) 1 MG by mouth tablet daily. traZODone (DESYREL) Take 50 mg by 0 07/21/2018 Active 50 MG tablet mouth nightly. isosorbide Take by 0 09/15/2018 Disconti nued mononitrate (IMDUR) mouth. 0 30 MG 24 hr tablet rivaroxaban Take 15 mg by 0 Disc ontinued (XARELTO) 15 mg mouth. 0 tablet traMADol (ULTRAM) Take 1 tablet 30 tablet 0 12/28/2018 01 Discontinued 50 mg (50 mg total) 9 (Reord er) tabletIndications: by mouth Acute pain of right every 6 (six) knee hours as needed for moderate pain for up to 7 days. traMADol (ULTRAM) Take 1 tablet 30 tablet 0 01/17/2019 01 Discontinued 50 mg (50 mg total) 9 (Reord er) tabletIndications: by mouth Acute pain of right every 6 (six) knee hours as needed for moderate pain for up to 5 days. traMADol (ULTRAM) Take 1 tablet 30 tablet 0 01/19/2019 01 Discontinued 50 mg (50 mg total) 9 (Reord er) tabletIndications: by mouth Acute pain of right every 6 (six) knee hours as needed for moderate pain for up to 7 days. traMADol (ULTRAM) Take 1 tablet 30 tablet 0 01/25/2019 01 Discontinued 50 mg (50 mg total) 9 (Reord er) tabletIndications: by mouth chronic pain every 6 (six) hours as needed for moderate pain for up to 7 days .chronic pain. traMADol (ULTRAM) TAKE ONE (1) 30 tablet 0 02/01/2019 02/09/20 1 Discontinued 50 mg TABLET(S) BY 9 (Reorde r) tabletIndications: MOUTH EVERY Primary SIX HOURS osteoarthritis of NEEDED FOR right knee, Chronic MODERATE PAIN pain of right knee FOR UP TO 7 DAYS. traMADol (ULTRAM) Take 1 tablet 30 tablet 0 02/08/2019 01 50 mg (50 mg total) 9 tabletIndications: by mouth acute pain every 6 (six) hours as needed for moderate pain for up to 7 days .Acute Pain. apixaban (ELIQUIS) Take 2.5 mg 0 10/19/2015 08/04/19 2 Discontinued 2.5 mg tablet by mouth 2 0 (Samanta ent (two) times a Discha rge) day. HYDROcodone-acetami Take 1 tablet 30 tablet 0 08/23/201909/01 nophen (NORCO) by mouth 0 10-325 mg per every 6 (six) tabletIndications: hours as acute pain needed for severe pain for up to 10 days .acute pain. Max Daily Amount: 4 tablets Active Problems No known active problems Encounters Date Type Specialty Care Team Description 08/23/2019 Hospital Encounter Radiology Reji Domingo Chronic b ilateral low back pain without sciatica; MD Arpit Compression fra cture of thoracic vertebra, initial encounter, unspecified thoracic vertebral level (HCC); Compression fra cture of lumbar vertebra, initial encounter, unspecified lumbar vertebral level (HCC) 08/23/2019 Office Visit Sports Medicine Chayo, Reji Chronic bila teral low back pain without sciatica (Primary Dx); MD Arpit Compression fra cture of thoracic vertebra, initial encounter, unspecified thoracic vertebral level (HCC); Compression fra cture of lumbar vertebra, initial encounter, unspecified lumbar vertebral level (HCC) 08/23/2019 Hospital Encounter Radiology Chayo, Reji Chronic b ilateral low back pain without sciatica; MD Arpit Compression fra cture of thoracic vertebra, initial encounter, unspecified thoracic vertebral level (HCC); Compression fra cture of lumbar vertebra, initial encounter, unspecified lumbar vertebral level (HCC) 08/22/2019 Travel 08/02/2019 Anesthesia Event General Surgery Mercedez Mccracken, STEPHEN 08/02/2019 Hospital Encounter Radiology Elizabeth, Preop t lauryn Ha MD 08/02/2019 Pre-Admit Testing Pre-Admission Vernell Barrios Preop testing Appointment Testing MD Adilia (Primary Dx) 02/08/2019 Refill Orthopedic Surgery Patel Peoples Primary osteoarthritis of right knee; MD Leland Chronic pain of right knee 01/30/2019 Refill Orthopedic Surgery Patel Peoples Primary osteoarthritis of right knee; MD Leland Chronic pain of right knee 01/25/2019 Office Visit Orthopedic Surgery Patel Peoples Primary osteoarthritis of right knee (Primary Dx); MD Leland Chronic pain of right knee; Acute pain of r ight knee 01/19/2019 Refill Orthopedic Surgery Patel Peoples Acute pa in of right MD Leland knee 01/18/2019 Office Visit Orthopedic Surgery Patel Peoples Acute pa in of left knee (Primary Dx); MD Leland Primary osteoar thritis of both knees; Chronic pain of right knee 01/17/2019 Refill Orthopedic Surgery Patel Peoples Acute pa in of right MD Leland knee 01/11/2019 Office Visit Orthopedic Surgery Patel Peoples Primary osteoarthritis of right knee (Primary Dx); MD Leland Chronic pain of right knee 01/03/2019 Telephone Orthopedic Surgery Liat Ellison MA 12/28/2018 Office Visit Orthopedic Surgery Patel Peoples Acute pa in of right MD Leland knee (Primary D x) 11/14/2018 Intake Access after 10/17/2018 Family History Medical History Relation Name Comments Heart disease Father Kidney disease Mother Relation Name Status Comments Father Mother Social History Tobacco Use Types Packs/Day Years Used Date Former Smoker Smokeless Tobacco: Never Used Alcohol Use Drinks/Week oz/Week Comments Not Currently 1 Glasses of wine 1.0 very rare - red wine 0 Cans of beer 0 Shots of liquor 0 Standard drinks or equivalent Sex Assigned at Date Recorded Not on file Job Start Date Occupation Industry Not on file Not on file Not on file Travel History Travel Start Travel End No recent travel history available. Last Filed Vital Signs Vital Sign Reading Time Taken Comments Blood Pressure 113/72 08/02/2019 2:57 PM MAIL OFFICER Pulse 100 08/02/2019 2:57 PM MAIL OFFICER Temperature 36.7 C (98.1 F) 08/02/2019 2:57 PM MAIL OFFICER Respiratory Rate 16 08/02/2019 2:57 PM MAIL OFFICER Oxygen Saturation 99% 08/02/2019 2:57 PM MAIL OFFICER Inhaled Oxygen Concentration - - Weight 81.2 kg (179 lb) 08/02/2019 2:57 PM MAIL OFFICER Height 175.3 cm (5' 9") 08/02/2019 2:57 PM MAIL OFFICER Body Mass Index 26.43 08/02/2019 2:57 PM MAIL OFFICER Plan of Treatment Date Type Specialty Care Team Description 10/27/2019 Hospital Encounter [place] [address] [facility] [address] [place] [address] [phone] 10/27/2019 Surgery General Surgery Vernell Barrios LEFT UPP [place] Pat MD WITH WAVELINQ [address] [place] [address] [address] [place] [address] [phone] Health Maintenance Due Date Last Done Comments COLONOSCOPY SCREENING 1996 SHINGLES VACCINES (#1) 1996 65+ PNEUMOCOCCAL VACCINE (1 of 2 - PCV13) 2011 INFLUENZA VACCINE 12/31/2019 Procedures Procedure Name Priority Date/Time Associated Diagnosis Comme nts CT LUMBAR SPINE WO STAT 08/23/2019 3:31 Chronic bilateral low Results for this CONTRAST PM CDT back pain without procedure are in sciatica the results Compression fracture section . of thoracic vertebra, initial encounter, unspecified thoracic vertebral level (HCC) Compression fracture of lumbar vertebra, initial encounter, unspecified lumbar vertebral level (HCC) CT THORACIC SPINE WO STAT 08/23/2019 3:29 Chronic bilatera l low Results for this CONTRAST PM CDT back pain without procedure are in sciatica the results Compression fracture section . of thoracic vertebra, initial encounter, unspecified thoracic vertebral level (HCC) Compression fracture of lumbar vertebra, initial encounter, unspecified lumbar vertebral level (HCC) XR LUMBAR SPINE Routine 08/23/2019 1:39 Chronic bilateral low Results for this COMPLETE 4+ VW PM CDT back pain without procedur e are in sciatica the results section. XR CHEST 2 VW Routine 08/02/2019 4:04 Preop testing Results f or this PM MAIL OFFICER procedure are i n the results section. ECG PRE/POST OP Routine 08/02/2019 3:41 Preop testing Results for this PM MAIL OFFICER procedure are i n the results section. HEMOGLOBIN A1C Routine 08/02/2019 2:51 Preop testing Results for this PM MAIL OFFICER procedure are i n the results section. TYPE AND SCREEN Routine 08/02/2019 2:51 Preop testing Results for this PM MAIL OFFICER procedure are i n the results section. HC COMPLETE BLD COUNT Routine 08/02/2019 2:51 Preop testing R esults for this W/AUTO DIFF PM MAIL OFFICER procedure are i n the results section. AK ARTHROCENTESIS Routine 01/25/2019 10:40 Primary Result s for this ASPIR&/INJ MAJOR AM CDT osteoarthritis of proced ure are in JT/BURSA W/O US right knee the results Chronic pain of right sectio n. knee XR KNEE 4+ VW LEFT Routine 01/18/2019 11:00 Acute pain of left Results for this AM CDT knee procedure are i n the results section. AK ARTHROCENTESIS Routine 01/18/2019 10:30 Acute pain of left Results for this ASPIR&/INJ MAJOR AM CDT knee procedure are in JT/BURSA W/O US Primary the results osteoarthritis of section. both knees AK ARTHROCENTESIS Routine 01/18/2019 10:30 Primary Result s for this ASPIR&/INJ MAJOR AM CDT osteoarthritis of proced ure are in JT/BURSA W/O US both knees the results Chronic pain of right sectio n. knee AK ARTHROCENTESIS Routine 01/11/2019 10:40 Primary Result s for this ASPIR&/INJ MAJOR AM CDT osteoarthritis of proced ure are in JT/BURSA W/O US right knee the results Chronic pain of right sectio n. knee XR KNEE 4+ VW RIGHT Routine 12/28/2018 2:16 Acute pain of rig ht Results for this PM CDT knee procedure are i n the results section. AK ARTHROCENTESIS Routine 12/28/2018 2:10 Acute pain of right Results for this ASPIR&/INJ MAJOR PM CDT knee procedure a re in JT/BURSA W/O US the results section. after 10/17/[address] Lumbar Spine Wo Contrast (08/23/2019 3:31 PM CDT) Specimen Narrative Performed At EXAMINATION: CT LUMBAR SPINE WO CONTRA ST [facility] CLINICAL HISTORY: M54.5 Low back pain, G89.29 Other chronic pain, acute mid lumbar pain concern for VCF COMPARISON: Same day CT thoracic i and lumbar radiog raphs. MR abdomen 09/25/2015 TECHNIQUE: Noncontrast lumbar spinal CT with multiplan ar reconstruction performed using radiation dose reduction techniques. Technical factors are evaluated and adjusted to ensure appropriate moder ation of exposure. Automated dose management technology is applied to adjust radiation exposure while achievi ng a diagnostic quality image. FINDINGS: There are 6 nonrib-bearing lumbar-type vertebral indio s with 12 thoracic rib-bearing vertebrae representing transitional verteb safia and lumbarization of S1. For numbering purposes the lowest intervertebral disc space will be demarcated as S1-S2 Lumbar vertebral body heights are preserved. Minimal a nterolisthesis of S1 on S2 and minimal retrolisthesis of L3 on L4. Body heights are relatively preserved. Multilevel moderate to severe degenerative disc diseas e most prominent at L3-L4 and L5-S1 is thinning of disc space height lo ss, endplate sclerosis/cystic changes and osteophytosis. Multilevel facet hypertrophy is also present most prominent within th e lumbosacral region. There is multilevel spinal canal s tenosis, at least moderate to severe at L5-S1 and moderate at L4-L5. Mul tilevel less prominent spinal canal stenosis. There is multilevel n eural foraminal narrowing, at least mild at L5-S1. Prominent paraspinal muscle fatty infiltration. No par avertebral hematoma formation. Dense calcific plaques throughout the abdominal aorta which is nonaneurysmal. Left kidney is atrophic in appearance with scattered hypodense/dense structures chetan t may represent simple and hemorrhagic/proteinaceous cysts. Suspected layering biliary sludge within the partially visualized gallbla dder without distention. Lower back dependent subcuta neous edema. IMPRESSION: No CT evidence for acute lumbar spine os seous abnormality. Multilevel moderate to severe lumbar degenerative disc disease causing this at least moderate severe spinal canal stenosis at L5-S1. Transitional vertebrae suspected as desc ribed above. [id number] Procedure Note Hm Interface, Radiology Results - 08/23/2019 3:46 PM CDT EXAMINATION: CT LUMBAR SPINE WO CONTRAST CLINICAL HISTORY: M54.5 Low back pain, G89.29 Other chronic pain, acute mid lumbar pain concern for VCF COMPARISON: Same day CT thoracic i and lumbar radiographs. MR abdomen 09/25/2015 TECHNIQUE: Noncontrast lumbar spinal CT with multiplanar reconstruction performed using radiation dose reduction techniques. Technical factors are evaluated and adjusted to ensure appropriate moderation of exposure. Automated dose management technology is applied to adjust radiation exposure while achieving a diagnostic quality image. FINDINGS: There are 6 nonrib-bearing lumbar-type v ertebral bodies with 12 thoracic rib- bearing vertebrae representing transitional vertebrae and lumbarization of S1. For numbering purposes the lowest intervertebral disc space will be demarcated as S1-S2 Lumbar vertebral body heights are preser maikel. Minimal anterolisthesis of S1 on S2 and minimal retrolisthesis of L3 on L4. Body heights are relatively preserved. Multilevel moderate to severe degenerati ve disc disease most prominent at L3-L4 and L5-S1 is thinning of disc space height loss, endplate sclerosis/cystic changes and osteophytosis. Multilevel facet hypertrophy is also present most prominent within th e lumbosacral region. There is multilevel spinal canal stenosis, at least moderate to severe at L5-S1 and moderate at L4-L5. Multilevel less prominent spinal canal stenosis. There is multilevel neural foraminal narrowing, at least mild at L5-S1. Prominent paraspinal muscle fatty infilt ration. No paravertebral hematoma formation. Dense calcific plaques throughout the abdominal aorta which is nonaneurysmal. Left kidney is atrophic in appearance with scattered hypodense/dense structures that may represent simple and hemorrhagic/protein aceous cysts. Suspected layering biliary sludge within the partially visualized gallbladder without distention. Lower back dependent subcutaneous edema. IMPRESSION: No CT evidence for acute lumbar spine os seous abnormality. Multilevel moderate to severe lumbar deg enerative disc disease causing this at least moderate severe spinal canal stenosis at L5-S1. Transitional vertebrae suspected as described above. [id number] Performing Organization Address City/State/Zipcode Phone Number [facility] [address] [place] [address] CT Thoracic Spine Wo Contrast (08/23/2019 3:29 PM CDT) Specimen Narrative Performed At EXAMINATION: CT THORACIC SPINE WO CONT RAST [facility] CLINICAL HISTORY: M54.5 Low back pain, G89.29 Other chronic pain, concern for thoracic VCF COMPARISON: Concurrent lumbar spinal C T on 08/23/2019. TECHNIQUE: Noncontrast thoracic spinal CT with multipl vesna reconstruction performed using radiation dose reductio n techniques. Technical factors are evaluated and adjusted to ensu re appropriate moderation of exposure. Automated dose management technology is applied to adjust radiation exposure whi le achieving a diagnostic quality image. FINDINGS: There are 12 rib-bearing thoracic-type vertebrae. Mild ly exaggerated thoracic kyphosis with minimal grade 1 (1-2 mm) dre listhesis of T2 on T3, T3 and T4, T4 on T5, and T5 on T6. Multiple chroni c-appearing Schmorl's nodes along mid-inferior thora cic levels. No evidence of acute fracture. No suspicious o steolytic or osteoblastic lesion. All thoracic intervertebral disc spaces are moderate-s everely narrowed. Mild-moderately prominent bridging right anterolateral endplate osteophytes along mid-inferior thoracic levels. Dorsal spondylosis results in moderate-severe right T1-2 an d right more than left T2-3 neural foraminal stenoses, and mil d-moderate bilateral T3-4 and T4-5 neural foraminal stenoses. Mil d neural foraminal stenoses at other lumbar levels. Probable mild spinal canal stenosis at T5-6. There is advanced cervical spondylosis with evidence o f moderate-severe spinal canal stenosis at T5-6 and to lesser degree at T6-7 from endplate osteophytes, and multilevel moderate-sev ere neural foraminal stenoses. Right internal jugular dual-lumen catheter extends low in the right atrium. Visualized paraspinal soft tissues are unremar kable. Extensive calcified atherosclerosis along left coronary arteries along the arch and descending thoracic aorta. There is platelike atelectasis along bilateral ranulfo ng bases. IMPRESSION: 1. No acute thoracic spinal abnormality. 2. Thoracic spondylosis with multilevel variable neura l foraminal stenoses including moderate-severe right T1-2 and righ t more than left T2-3 neural foraminal stenoses. Probable mild spinal c anal stenosis at T5-6. 3. Advanced cervical spondylosis with evidence of mode rate-severe spinal canal stenosis at T5-6 and to lesser degree T6-7 and m ultilevel moderate-severe neural foraminal stenoses, which can b e further evaluated by dedicated cervical imaging. [id number] Procedure Note Hm Interface, Radiology Results Incoming - 08/23/2019 4:02 PM CDT EXAMINATION: CT THORACIC SPINE WO CONTRAST CLINICAL HISTORY: M54.5 Low back pain, G89.29 Other chronic pain, concern for thoracic VCF COMPARISON: Concurrent lumbar spinal CT on 08/23/2019. TECHNIQUE: Noncontrast thoracic spinal C T with multiplanar reconstruction performed using radiation dose reduction techniques. Technical factors are evaluated and adjusted to ensure appropriate moderation of exposure. Automated dose management technology is applied to adjust radiatio n exposure while achieving a diagnostic quality image. FINDINGS: There are 12 rib-bearing thoracic-type v ertebrae. Mildly exaggerated thoracic kyphosis with minimal grade 1 (1-2 mm) anterolisthesis of T2 on T3, T3 and T4, T4 on T5, and T5 on T6. Multiple chronic-appearing Schmorl's nodes along mid-inferior thora cic levels. No evidence of acute fracture. N o suspicious osteolytic or osteoblastic lesion. All thoracic intervertebral disc spaces are moderate-severely narrowed. Mild- moderately prominent bridging right anterolateral endplate osteophytes along mid-inferior thoracic levels. Dorsal spondylosis results in moderate-severe right T1-2 and right more than left T2-3 neural foraminal hermann noses, and mild-moderate bilateral T3-4 and T4-5 neural foraminal stenoses. Mild neural foraminal stenoses at other lumbar levels. Probable mild spinal canal stenosis at T5-6. There is advanced cervical spondylosis w ith evidence of moderate-severe spinal canal stenosis at T5-6 and to lesser degree at T6-7 from endplate osteophytes, and multilevel moderate-severe neural foraminal stenoses. Right internal jugular dual-lumen cathet er extends low in the right atrium. Visualized paraspinal soft tissues are unremarkable. Extensive calcified atherosclerosis along left coronary arteries along the arch and descending thoracic aorta. There is platelike atelectasis along bilateral ranulfo ng bases. IMPRESSION: 1. No acute thoracic spinal abnormality. 2. Thoracic spondylosis with multilevel variable neural foraminal stenoses including moderate-severe right T1-2 and right more than left T2-3 neural foraminal stenoses. Probable mild spinal canal stenosis at T5-6. 3. Advanced cervical spondylosis with ev idence of moderate-severe spinal canal stenosis at T5-6 and to lesser degree T6-7 and multilevel moderate-severe neural foraminal stenoses, which can be further evaluated by dedicated cervical imaging. [id number] Performing Organization Address City/[facility]/Zipcode Phone Number [facility] [address] [place] [address] XR Lumbar Spine Complete 4+ Vw (08/23/2019 1:39 PM CDT) Specimen Narrative Performed At This result has an attachment that is no t available. 5 views lumbar spine was obtained. Severe multilevel degenerative disc [facility] disease is identified with multilevel lumbar spondylos is and disc space narrowing with concern for L4 spondylolisthesis. Ant erior marginal spurring through the L1-L5 disc are identified with va scular calcifications. No overt evidence of acute osseous a bnormality including vertebral compression fracture visualized. Performing Organization Address [facility] Phone Number [facility] [address] [place] [address] XR Chest 2 Vw (08/02/2019 4:04 PM MAIL OFFICER) Specimen Narrative Performed At EXAMINATION: XR CHEST 2 VW [facility] CLINICAL HISTORY: Z01.818 Encounter for other preproce dural examination, Pre OP Testing COMPARISON: 09/21/2015 IMPRESSION: Right jugular dialysis catheter is in place extending to right atrium. There is stable [id number]-hl-qxbzjpch cardiomegaly. Pulmona ry vasculature is normal. There is aortic calcification tortuosity. No focal infiltrate, effusion or pneumothorax seen. Visualized osseous structures are intact . [facility]-[id number] Procedure Note Hm Interface, Radiology Results Incoming - 08/02/2019 4:11 PM MAIL OFFICER EXAMINATION: XR CHEST 2 VW CLINICAL HISTORY: Z01.818 Encounter for other preprocedural examination, Pre OP Testing COMPARISON: 09/21/2015 IMPRESSION: Right jugular dialysis catheter is in pl deja extending to right atrium. There is stable [id number]-kezuwelt cardiomegaly. Pulmonary vasculature is normal. There is aortic calcification tortuosity. No focal infiltrate, effusion or pneumothorax seen. Visualized osseous structures are intact . [id number] Performing Organization Address City/State/Zipcode Phone Number [facility] [address] [place] [address] ECG Pre/Post Op (08/02/2019 3:41 PM MAIL OFFICER) Pathologist Sig nature Ventricular rate 80 [facility] Atrial rate 71 [facility] QRSD interval 96 [facility] QT interval 388 [facility] QTC interval 447 [facility] QRS axis 1 167 [facility] T wave axis 24 [facility] EKG impression Atrial [facility] MUSE fibrillation-Indetermin ate axis-Low voltage QRS-Abnormal ECG-No previous ECGs available-Electronicall y Signed By Brayden SEYMOUR, Solomon Diamond (2019) on 08/02/2019 5:06:11 PM Specimen Narrative Performed At This result has an attachment that is no t available. Performing Organization Address City/[facility] Phone Number [facility] [address] [place] [address] CBC with platelet and differential (08/02/2019 2:51 PM MAIL OFFICER) WBC 15.8 (H) 4.5 - 11.0 k/uL [facility] RBC 4.24 (L) 4.40 - 6.00 [facility] m/uL [facility] HGB 12.5 (L) 14.0 - 18.0 [facility] g/dL [facility] HCT 41.1 41.0 - 51.0 % [facility] MCV 96.9 82.0 - 100.0 fL [facility] MCH 29.5 27.0 - 34.0 pg [facility] MCHC 30.4 (L) 31.0 - 37.0 [facility] g/dL [facility] RDW - SD 53.9 37.0 - 55.0 fL [facility] MPV 10.1 6.9 - 11.0 fL [facility] Platelet count 367 150 - 400 K/uL [facility] Nucleated RBC 0.00 /100 WBC [facility] Neutrophils 80.0 (H) 39.0 - 69.0 % [facility] Lymphocytes 6.3 (L) 25.0 - 45.0 % [facility] Monocytes 8.3 0.0 - 10.0 % [facility] Eosinophils 1.7 0.0 - 5.0 % [facility] Basophils 1.2 (H) 0.0 - 1.0 % [facility] Immature granulocytes 2.5 (H) 0.0 - 1.0 % [facility] Specimen Blood Performing Organization Address City/[facility]/Zipcode Phone Number [facility] DEPARTMENT OF PATHOLOGY [address] [place] [phone] [address] X [facility] Type and screen (08/02/2019 2:51 PM MAIL OFFICER) Pathologist Sig nature ABO grouping O [facility] Rh type POS [facility] Antibody screen (gel) NEG [facility] Specimen Blood Performing Organization Address [facility] Cent[facility] Phone Number [facility] DEPARTMENT OF PATHOLOGY [address] [place] [address] Hemoglobin A1c (08/02/2019 2:51 PM MAIL OFFICER) Hemoglobin A1C 5.2 4.0 - 5.6 % [facility] Comment: [place] HbA1c cutoffs for diagnosing diabetes: HO SPITAL 4.0% - 5.6% = normal 5.7% - 6.4% = increased risk for diabetes (prediabetes )9 >=6.5% = diabetes9 Goals for glycemic control (ADA 2016) < 7.0% Target for non adults with diabetes. More or less stringent targets may be appropriate for individual patients. <7.5% Target for Children and adolescents with type 1 diabetes. Specimen Blood Performing Organization Address City/[facility]/Zipcode Phone Number [facility] DEPARTMENT OF PATHOLOGY [address] [place] [id number] [address] Large Joint Arthrocentesis: knee, R knee (01/25/2019 10:40 AM CDT) Narrative Performed At Patel Peoples MD 01/25/2019 4 :57 PM Large Joint Arthrocentesis: knee, R knee Consent given by: patient Supporting Documentation Indications: pain Procedure Details Ultrasound guided: no Platelet Rich Plasma Used: no PRP Use d Location: knee - R knee Right side: Needle size: 22 G Approach: anterior Right knee medications administered: 2 mL sodium hyalu ronate (viscosup) 30 mg/2 mL Patient tolerance: patient tolerated the procedure wel l with no immediate complications XR Knee 4+ Vw Left (01/18/2019 11:00 AM CDT) Specimen Narrative Performed At This result has an attachment that is no t available. AP, lateral, notch and patella view of the left knee show mild medial [facility] compartment narrowing. The remainder of the x-rays a re normal on the knees. There is no soft tissue calcification or abno rmal spurring. Performing Organization Address City/State/[facility] Centercode Phone Number [facility] [address] [place] [address] Large Joint Arthrocentesis: knee, L knee (01/18/2019 10:30 AM CDT) Narrative Performed At Patel Peoples MD 01/18/2019 12: 25 PM Large Joint Arthrocentesis: knee, L knee Consent given by: patient Supporting Documentation Indications: pain Procedure Details Ultrasound guided: no Platelet Rich Plasma Used: no PRP Use d Location: knee - L knee Left side: Needle size: 25 G Approach: anterior Left knee medications administered: 1 mL lidocaine 10 mg/mL (1 %); 6 mg betamethasone acetate & sodium phosphate 6 mg/mL Patient tolerance: patient tolerated the procedure wel l with no immediate complications Large Joint Arthrocentesis: knee, R knee (01/18/2019 10:30 AM CDT) Narrative Performed At Patel Peoples MD 01/18/2019 12: 25 PM Large Joint Arthrocentesis: knee, R knee Consent given by: patient Supporting Documentation Indications: pain Procedure Details Ultrasound guided: no Platelet Rich Plasma Used: no PRP Use d Location: knee - R knee Right side: Needle size: 22 G Approach: anterior Right knee medications administered: 2 mL sodium hyalu ronate (viscosup) 30 mg/2 mL Patient tolerance: patient tolerated the procedure wel l with no immediate complications Large Joint Arthrocentesis: knee, R knee (01/11/2019 10:40 AM CDT) Narrative Performed At Patel Peoples MD 01/11/2019 11: 52 AM Large Joint Arthrocentesis: knee, R knee Consent given by: patient Supporting Documentation Indications: pain Procedure Details Ultrasound guided: no Platelet Rich Plasma Used: no PRP Use d Location: knee - R knee Right side: Needle size: 22 G Approach: anterior Right knee medications administered: 2 mL sodium hyalu ronate (viscosup) 30 mg/2 mL Patient tolerance: patient tolerated the procedure wel l with no immediate complications XR Knee 4+ Vw Right (12/28/2018 2:16 PM CDT) Specimen Narrative Performed At This result has an attachment that is no t available. AP, lateral, notch and patella view of the right knee shows significant HM [facility] patellofemoral narrowing with spurring. There is no abnormal calcifications or loose bodies. 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 and site/side marked as required Supporting Documentation Indications: pain Procedure Details Ultrasound guided: no Platelet Rich Plasma Used: no PRP Use d Location: knee - R knee Right side: Needle size: 25 G Approach: anterior Right knee medications administered: 1 mL lidocaine 10 mg/mL (1 %); 6 mg betamethasone acetate & sodium phosphate 6 mg/mL Patient tolerance: patient tolerated the procedure wel l with no immediate complications after 10/17/2018 Insurance Payer Benefit Plan / Subscriber ID Effective Phone Address T ype Group Dates MEDICARE MEDICARE PART A xxxxxxxxxxx 2011-Pre [place], [place] Medicare AND B sent BCBS COMMERCIAL BCBS MEDICARE xxxxxxxxxxxx 2013-Pr Commercial SUPPLEMENT esent Advance Directives For more information, please contact: [phone] Type Date Recorded 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
--- OUTSIDE RECORDS SUMMARY | 2019-10-18 13:38 | XMS REPORT | Clinical Summary ---
:1945 Author Organization [facility] Address [address] [place] [address] Care Team Providers Name Role Phone Hunter Osiris Primary Care Provider Allergies No Known Allergies Medications Medication Sig Dispensed Refills Start Date End Date Status metoprolol Take 50 mg by 0 Activ e (LOPRESSOR) 50 MG mouth 2 (two) tablet [...] days. allopurinol Take 1 tablet 0 11/24/2018 Act vi (ZYLOPRIM) 100 MG (100 mg total) 0 tablet by mouth daily. apixaban (ELIQUIS) Take 1 tablet 0 11/24/2018 Active 2.5 mg Tab tablet (2.5 mg total) by mouth 2 (two) times daily. bumetanide (BUMEX) 1 Take 1 tablet 0 11/24/201810/31 Active MG tablet (1 mg total) by 0 mouth 2 (two) times daily. cetirizine (ZYRTEC) Take 1 tablet 0 11/24/201811/23 Active 10 MG tablet (10 mg total) 0 by mouth daily. isosorbide dinitrate Take 30 mg by 0 11/24 Discontinued (ISORDIL) 30 MG mouth 4 (four) 9 tablet times daily. traZODone (DESYREL) Take 50 mg by 0 Discontinued 50 MG tablet mouth nightly. 9 simvastatin (ZOCOR) Take 20 mg by 0 Discontinued 20 MG tablet mouth nightly. 9 colestipol 1 gram Take by mouth. 0 01 Discontinued Tab 9 furosemide (LASIX) Take 20 mg by 0 Discontinued 20 MG tablet mouth daily. 9 rivaroxaban Take 20 mg by 0 Disc ontinued (XARELTO) 20 mg Tab mouth daily. 9 tablet spironolactone Take 50 mg by 0 D iscontinued (ALDACTONE) 50 MG mouth daily. 9 tablet sertraline (ZOLOFT) Take 1 tablet 60 tablet 0 08/03/201811/24 Discontinued 50 MG tablet (50 mg total) [...] (LIDODERM) Place 1 patch 30 patch 0 11/24/201811/30 5 % patch onto the skin 9 daily for 30 days Remove & Discard patch within 12 hours or as directed by MD. predniSONE Take 2 tablets 0 11/24/2018 Exp ired (DELTASONE) 20 MG (40 mg total) 9 [...] will do the comprehensive workup for other ca uses of cirrhosis. He'll also need assessment for portal hypertension, endoscopy for a dmission screening and MRI for screening of liver cancer. Melena 01/05/2013 Last Assessment & Plan: Patient has history of intermittent melena for last 1-2 weeks. He has not symptom of fatigue and his last hemoglobin was 9 will need 24 hour supervision for safety. Gm/dl. I recommend patient to go to the emergen cy room for further evaluation. Melena can be [...] I recommend going into the ER for evalua tion and treatment Abnormal liver enzymes 01/05/2013 Last Assessment & Plan: Patient was suffered here for abnormal liver panel, predominant elevation of alkaline phosphatase . This may be related to congestive hepatopathy, but he has symptoms of pruritus, cholestatic liver dise ase needs to be excluded The patient he has significant risk fact or for chronic liver disease, there is do a comprehensive workup for evaluation Screening for cancer 01/05/2013 Last Assessment & Plan: Patient has suggestion of cirrhosis base d on the imaging. He will need to MRI to further evaluate for screening of HCC. Coronary artery disease 01/05/2013 Last Assessment & Plan: Patient has history of coronary artery d isease last 15 years, he is status post multiple coronary angioplasties in the p ast. He is followed closely by his compress machine operator at present denies any chest pain but symptoms of progressive fatigue and dyspnea concerning. He will need evaluat ion. My recommendation would be to go to the emergency room for admission and assessm ent. Patient refusing initially, other check labs . GI bleed 01/05/2013 ESRD on hemodialysis Encounters Date Type Specialty Care Team Description 11/15/2018 Anesthesia Event Gastroenterology Jemima Benitez MD 11/15/2018 Surgery Gastroenterology Vero Pace ENTEROSCOPY ,BIOPSY MD Lucian 11/15/2018 Orders Only General Internal Medicine 11/14/2018 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 11/14/2018 Telephone Critical Care Medicine Josesito Man, Kem Canales MD after 10/17/2018 Family History Medical History Relation Name Comments Gout Father Hypertension Father Heart disease Mother Relation Name Status Comments Father Mother Social History Tobacco Use Types Packs/Day Years Used Date Former Smoker Smokeless Tobacco: Former User Q uit: 06/01/2005 Alcohol Use Drinks/Week oz/Week Comments Yes vodka+ apple jui ce quit Sex Assigned at Date Recorded Not [...] 11/24/2018 3:37 AM CDT Plan of Treatment Health Maintenance Due Date Last Done Comments PNEUMOCOCCAL 65+ HIGH/HIGHEST RISK (1 of 2 2011 - PCV13) MEDICARE ANNUAL WELLNESS (YEAR 2 or FIRST 03/02/2012 YEAR if no IPPE) INFLUENZA VACCINE (Season Ended) 2020 COLON CANCER SCREENING COLONOSCOPY 08/02/2028 08/02/2018, 0 01/07/2013 Procedures Procedure Name Priority Date/Time Associated Comments Diagnosis RHYTHM STRIP - SCAN 11/29/2018 3:20 PM CDT ECHOCARDIOGRAM REPORT - 11/25/2018 9:14 SCAN PM CDT RHYTHM STRIP - SCAN 11/25/2018 11:40 AM CDT POCT-GLUCOSE METER Routine 11/24/2018 8:16 Resul ts for this AM CDT procedure are i n the results section. CBC W/PLT COUNT & AUTO Routine 11/24/2018 5:53 R esults for this DIFFERENTIAL AM CDT procedure are i n the results section. MAGNESIUM Routine 11/24/2018 5:53 Results for this AM CDT procedure are i n the results section. CBC W/PLT COUNT & AUTO Routine 11/24/2018 5:53 R esults for this DIFFERENTIAL AM CDT procedure are i n the results section. BASIC METABOLIC PANEL Routine 11/24/2018 5:53 Re sults for this (7) AM CDT procedure are i n the results section. POCT-GLUCOSE METER Routine 11/23/2018 9:23 Resul ts for this PM CDT procedure are i n the results section. POCT-GLUCOSE METER Routine 11/23/2018 5:27 Resul ts for this PM CDT procedure are i n the results section. TRANSESOPHAGEAL ECHO SURENDRA 11/23/2018 10:57 Res ults for this AM CDT procedure are i n the results section. CBC W/PLT COUNT & AUTO Routine 11/23/2018 4:25 R esults for this DIFFERENTIAL AM CDT procedure are i n the results section. COMPREHENSIVE METABOLIC Routine 11/23/2018 4:25 Results for this PANEL AM CDT procedure are i n the results section. CBC W/PLT COUNT & AUTO Routine 11/23/2018 4:25 R esults for this DIFFERENTIAL AM CDT procedure are i n the results section. PHOSPHORUS Routine 11/23/2018 4:25 Results for this AM CDT procedure are i n the results section. MAGNESIUM Routine 11/23/2018 4:25 Results for this AM CDT procedure are i n the results section. CALCIUM, IONIZED Routine 11/23/2018 4:25 Results for this AM CDT procedure are i n the results section. HEPATITIS B PANEL Routine 11/22/2018 7:04 Result s for this PM CDT procedure are i n the results section. CONT WAVE PULSED DOPPLER Routine 11/22/2018 5:38 PM CDT COLOR-FLOW MAPPING Routine 11/22/2018 5:38 PM CDT POCT-GLUCOSE METER Routine 11/22/2018 12:40 Resul ts for this PM CDT procedure are i n the results section. POCT-GLUCOSE METER Routine 11/22/2018 7:39 Resul ts for this AM CDT procedure are i n the results section. CBC W/PLT COUNT & AUTO Routine 11/22/2018 3:14 R esults for this DIFFERENTIAL AM CDT procedure are i n the results section. CBC W/PLT COUNT & AUTO Routine 11/22/2018 3:14 R esults for this DIFFERENTIAL AM CDT procedure are i n the results section. PHOSPHORUS Routine 11/22/2018 3:14 Results for this AM CDT procedure are i n the results section. MAGNESIUM Routine 11/22/2018 3:14 Results for this AM CDT procedure are i n the results section. COMPREHENSIVE METABOLIC Routine 11/22/2018 3:14 Results for this PANEL AM CDT procedure are i n the results section. CALCIUM, IONIZED Routine 11/22/2018 3:14 Results for this AM CDT procedure are i n the results section. POCT-GLUCOSE METER Routine 11/21/2018 11:30 Resul ts for this PM CDT procedure are i n the results section. CBC W/PLT COUNT & AUTO Routine 11/21/2018 4:44 R esults for this DIFFERENTIAL AM CDT procedure are i n the results section. CBC W/PLT COUNT & AUTO Routine 11/21/2018 4:44 R esults for this DIFFERENTIAL AM CDT procedure are i n the results section. PHOSPHORUS Routine 11/21/2018 4:44 Results for this AM CDT procedure are i n the results section. MAGNESIUM Routine 11/21/2018 4:44 Results for this AM CDT procedure are i n the results section. COMPREHENSIVE METABOLIC Routine 11/21/2018 4:44 Results for this PANEL AM CDT procedure are i n the results section. CALCIUM, IONIZED Routine 11/21/2018 4:44 Results for this AM CDT procedure are i n the results section. POCT-GLUCOSE METER Routine 11/20/2018 10:14 Resul ts for this PM CDT procedure are i n the results section. POCT-GLUCOSE METER Routine 11/20/2018 11:55 Resul ts for this AM CDT procedure are i n the results section. POCT-GLUCOSE METER Routine 11/20/2018 8:18 Resul ts for this AM CDT procedure are i n the results section. CBC W/PLT COUNT & AUTO Routine 11/20/2018 3:56 R esults for this DIFFERENTIAL AM CDT procedure are i n the results section. RETICULOCYTE COUNT Routine 11/20/2018 3:56 Resul ts for this AM CDT procedure are i n the results section. FERRITIN Routine 11/20/2018 3:56 Results for this AM CDT procedure are i n the results section. IRON, TIBC, % SAT. Routine 11/20/2018 3:56 Resul ts for this (WITHOUT FERRITIN) AM CDT procedure are in the results section. CBC W/PLT COUNT & AUTO Routine 11/20/2018 3:56 R esults for this DIFFERENTIAL AM CDT procedure are i n the results section. PHOSPHORUS Routine 11/20/2018 3:56 Results for this AM CDT procedure are i n the results section. MAGNESIUM Routine 11/20/2018 3:56 Results for this AM CDT procedure are i n the results section. COMPREHENSIVE METABOLIC Routine 11/20/2018 3:56 Results for this PANEL AM CDT procedure are i n the results section. CALCIUM, IONIZED Routine 11/20/2018 3:56 Results for this AM CDT procedure are i n the results section. POCT-GLUCOSE METER Routine 11/19/2018 10:03 Resul ts for this PM CDT procedure are i n the results section. HEMODIALYSIS INPATIENT Routine 11/19/2018 9:58 R esults for this PM CDT procedure are i n the results section. POCT-GLUCOSE METER Routine 11/19/2018 5:25 Resul ts for this PM CDT procedure are i n the results section. POCT-GLUCOSE METER Routine 11/19/2018 11:30 Resul ts for this AM CDT procedure are i n the results section. C-REACTIVE PROTEIN STAT 11/19/2018 10:14 Resul ts for this AM CDT procedure are i n the results section. XR KNEE LEFT 1 OR 2 STAT 11/19/2018 9:54 Resu lts for this VIEWS AM CDT procedure are i n the results section. XR KNEE RIGHT 1 OR 2 STAT 11/19/2018 9:46 Res ults for this VIEWS AM CDT procedure are i n the results section. POCT-GLUCOSE METER Routine 11/19/2018 7:41 Resul ts for this AM CDT procedure are i n the results section. CBC W/PLT COUNT & AUTO Routine 11/19/2018 4:09 R esults for this DIFFERENTIAL AM CDT procedure are i n the results section. CBC W/PLT COUNT & AUTO Routine 11/19/2018 4:09 R esults for this DIFFERENTIAL AM CDT procedure are i n the results section. PHOSPHORUS Routine 11/19/2018 4:09 Results for this AM CDT procedure are i n the results section. MAGNESIUM Routine 11/19/2018 4:09 Results for this AM CDT procedure are i n the results section. COMPREHENSIVE METABOLIC Routine 11/19/2018 4:09 Results for this PANEL AM CDT procedure are i n the results section. CALCIUM, IONIZED Routine 11/19/2018 4:09 Results for this AM CDT procedure are i n the results section. POCT-GLUCOSE METER Routine 11/18/2018 10:02 Resul ts for this PM CDT procedure are i n the results section. POCT-GLUCOSE METER Routine 11/18/2018 5:51 Resul ts for this PM CDT procedure are i n the results section. POCT-GLUCOSE METER Routine 11/18/2018 1:45 Resul ts for this PM CDT procedure are i n the results section. CBC W/PLT COUNT & AUTO Routine 11/18/2018 5:17 R esults for this DIFFERENTIAL AM CDT procedure are i n the results section. CBC W/PLT COUNT & AUTO Routine 11/18/2018 5:17 R esults for this DIFFERENTIAL AM CDT procedure are i n the results section. CALCIUM, IONIZED Routine 11/18/2018 5:17 Results for this AM CDT procedure are i n the results section. PHOSPHORUS Routine 11/18/2018 5:16 Results for this AM CDT procedure are i n the results section. MAGNESIUM Routine 11/18/2018 5:16 Results for this AM CDT procedure are i n the results section. COMPREHENSIVE METABOLIC Routine 11/18/2018 5:16 Results for this PANEL AM CDT procedure are i n the results section. ECG 12-LEAD Routine 11/17/2018 7:01 PM CDT Procedure Note - Interface, External Ris In - 11/17/2018 7:12 PM CDT Ventricular Rate 102 BPM Atrial Rate 90 BPM QRS Duration 104 ms Q-T Interval 398 ms QTC Calculation(Bazett) 518 ms R Polson -25 degrees T Polson 48 degrees Atrial fibrillation with rap id ventricular response Low voltage QRS Abnormal ECG When compared with ECG of 04:23, No significant change was fo und ECG 12-LEAD Routine 11/17/2018 Results for 7:01 PM CDT this procedure are in the results section. TRANSFUSION SERVICE 11/17/2018 REPORT - SCAN 6:02 PM CDT HEMOGLOBIN AND Routine 11/17/2018 Results for HEMATOCRIT 3:31 PM CDT this procedure are in the results section. NM GI BLEED STUDY STAT 11/17/2018 Results fo r 2:16 PM CDT this procedure are in the results section. VANCOMYCIN LEVEL, RANDOM Routine 11/17/2018 Res ults for 8:15 AM CDT this procedure are in the results section. HEMOGLOBIN AND Routine 11/17/2018 Results for HEMATOCRIT 8:15 AM CDT this procedure are in the results section. CBC W/PLT COUNT & AUTO Routine 11/17/2018 Resul ts for DIFFERENTIAL 2:12 AM CDT this procedure are in the results section. PHOSPHORUS Routine 11/17/2018 Results for 2:12 AM CDT this procedure are in the results section. MAGNESIUM Routine 11/17/2018 Results for 2:12 AM CDT this procedure are in the results section. COMPREHENSIVE METABOLIC Routine 11/17/2018 Resu lts for PANEL 2:12 AM CDT this procedure are in the results section. CALCIUM, IONIZED Routine 11/17/2018 Results for 2:12 AM CDT this procedure are in the results section. CBC W/PLT COUNT & AUTO Routine 11/17/2018 Resul ts for DIFFERENTIAL 2:12 AM CDT this procedure are in the results section. PREPARE LEUKO-REDUCED STAT 11/16/2018 Result s for RBC 11:54 PM CDT this procedure are in the results section. PREPARE LEUKO-REDUCED STAT 11/16/2018 Result s for PLATELETS 11:54 PM CDT this procedure are in the results section. PREPARE PLASMA Routine 11/16/2018 Results for 11:54 PM CDT this procedure are in the results section. PREPARE LEUKO-REDUCED Routine 11/16/2018 Result s for RBC 11:54 PM CDT this procedure are in the results section. PLATELET AGGREGATION: AP Routine 11/16/2018 Result s for FUNCTION SCREEN 7:59 PM CDT this procedu re are in the results section. HEPARIN ASSAY - LOW STAT 11/16/2018 Results for MOLECULAR WEIGHT 6:43 PM CDT this proced ure are in the results section. HEPARIN ASSAY - Routine 11/16/2018 Results for UNFRACTIONATED 6:43 PM CDT this procedur e are in the results section. PT/APTT STAT 11/16/2018 Results for 6:43 PM CDT this procedure are in the results section. PHOSPHORUS STAT 11/16/2018 Results for 6:21 PM CDT this procedure are in the results section. MAGNESIUM STAT 11/16/2018 Results for 6:21 PM CDT this procedure are in the results section. BASIC METABOLIC PANEL STAT 11/16/2018 Result s for (7) 6:21 PM CDT this procedure are in the results section. HEMOGLOBIN AND Routine 11/16/2018 Results for HEMATOCRIT 6:15 PM CDT this procedure are in the results section. TRANSFUSION SERVICE 11/16/2018 REPORT - SCAN 6:02 PM CDT THROMBOELASTOGRAPH (TEG) STAT 11/16/2018 Res ults for 9:46 AM CDT this procedure are in the results section. CBC W/PLT COUNT & AUTO Routine 11/16/2018 Resul ts for DIFFERENTIAL 3:43 AM CDT this procedure are in the results section. VANCOMYCIN LEVEL, RANDOM Routine 11/16/2018 Res ults for 3:43 AM CDT this procedure are in the results section. PHOSPHORUS Routine 11/16/2018 Results for 3:43 AM CDT this procedure are in the results section. MAGNESIUM Routine 11/16/2018 Results for 3:43 AM CDT this procedure are in the results section. COMPREHENSIVE METABOLIC Routine 11/16/2018 Resu lts for PANEL 3:43 AM CDT this procedure are in the results section. CALCIUM, IONIZED Routine 11/16/2018 Results for 3:43 AM CDT this procedure are in the results section. CBC W/PLT COUNT & AUTO Routine 11/16/2018 Resul ts for DIFFERENTIAL 3:43 AM CDT this procedure [...] AND HEMATOCRIT STAT 11/15/2018 1:33 PM CDT Results for this procedure are i n the results section . HEMODIALYSIS INPATIENT Routine 11/15/2018 11:42 AM CDT AMMONIA STAT 11/15/2018 9:07 AM CDT Resu lts for this procedure are i n the results section . HEPATITIS B SURFACE ANTIGEN Routine 11/15/2018 9:07 AM CDT Results for this procedure are i n the results section . HEMOGLOBIN AND HEMATOCRIT STAT 11/15/2018 9:07 AM CDT Results for this procedure are i n the results section . (CELLAVISION MANUAL DIFF) Routine 11/15/2018 5:01 AM CDT Results for this procedure are i n the results section . CBC W/PLT COUNT & AUTO Routine 11/15/2018 5:01 AM CDT Results for this DIFFERENTIAL procedure are i n the results section . HEMOGLOBIN AND HEMATOCRIT STAT 11/15/2018 5:01 AM CDT Results for this procedure are i n the results section . PHOSPHORUS Routine 11/15/2018 5:01 AM CDT Resu lts for this procedure are i n the results section . MAGNESIUM Routine 11/15/2018 5:01 AM CDT Resu lts for this procedure are i n the results section . BASIC METABOLIC PANEL (7) Routine 11/15/2018 5:01 AM CDT Results for this procedure are i n the results section . CBC W/PLT COUNT & AUTO Routine 11/15/2018 5:01 AM CDT Results for this DIFFERENTIAL procedure are i n the results section . TRANSFUSE LEUKO-REDUCED RED Routine 11/15/2018 4:55 AM CDT BLOOD CELLS ECG 12-LEAD Routine 11/15/2018 4:23 AM CDT Procedure Note - Interface, External Ris In - 11/15/2018 6:06 AM CDT Ventricular Rate 110 BPM Atrial Rate 107 BPM QRS Duration 104 ms Q-T Interval 378 ms QTC Calculation(Bazett) 511 ms R Polson -36 degrees T Polson 22 degrees Atrial fibrillation with rap id ventricular response Left axis deviation Low voltage QRS Cannot rule out Anterior inf arct , age undetermined Abnormal ECG When compared with ECG of 15:40, Vent. rate has increased BY 47 BPM QT has lengthened ECG 12-LEAD Routine 11/15/2018 4:23 AM CDT Resu lts for this procedure are i n the results section . TRANSFUSE PLASMA Routine 11/15/2018 1:48 AM CDT URINALYSIS W/ REFLEX URINE Routine 11/14/2018 10:57 PM CDT Results for this CULTURE procedure are i n the results section . URINE CULTURE Routine 11/14/2018 10:57 PM CDT Res ults for this procedure are i n the results section . PROCALCITONIN Routine 11/14/2018 10:44 PM CDT Res ults for this procedure are i n the results section . CALCIUM, IONIZED STAT 11/14/2018 10:44 PM CDT Results for this procedure are i n the results section . HEMOGLOBIN AND HEMATOCRIT STAT 11/14/2018 10:44 PM CDT Results for this procedure are i n the results section . LACTIC ACID, VENOUS STAT 11/14/2018 10:44 PM CDT Results for this procedure are i n the results section . BLOOD CULTURE Routine 11/14/2018 10:13 PM CDT Res ults for this procedure are i n the results section . BLOOD CULTURE Routine 11/14/2018 10:12 PM CDT Res ults for this procedure are i n the results section . (CELLAVISION MANUAL DIFF) Routine 11/14/2018 8:09 PM CDT Results for this procedure are i n the results section . CBC W/PLT COUNT & AUTO Routine 11/14/2018 8:09 PM CDT Results for this DIFFERENTIAL procedure are i n the results section . TYPE AND SCREEN, AUTOMATED Routine 11/14/2018 8:09 PM CDT Results for this procedure are i n the results section . CBC W/PLT COUNT & AUTO Routine 11/14/2018 8:09 PM CDT Results for this DIFFERENTIAL procedure are i n the results section . THROMBOELASTOGRAPH (TEG) Routine 11/14/2018 8:09 PM CDT Results for this procedure are i n the results section . XR CHEST 1 VIEW STAT 11/14/2018 7:49 PM CDT R esults for this PORTABLE/BEDSIDE procedure a re in the results section . CENTRAL LINE INSERTION Routine 11/14/2018 7:16 PM CDT Results for this procedure are i n the results section . COMPREHENSIVE METABOLIC PANEL Routine 11/14/2018 6:28 PM CDT Results for this procedure are i n the results section . PROTHROMBIN TIME/INR Routine 11/14/2018 6:28 PM CDT Results for this procedure are i n the results section . HEMOGLOBIN AND HEMATOCRIT Routine 11/14/2018 6:28 PM CDT Results for this procedure are i n the results section . after 10/17/2018 Results RHYTHM STRIP - SCAN (11/29/2018 3:20 PM CDT)Only the most recent of2 results within the time period is included. Narrative Performed At This result has an attachment that is no t available. ECHOCARDIOGRAM REPORT - SCAN (11/25/2018 9:14 PM CDT) Narrative Performed At This result has an attachment that is no t available. POC-Glucose meter (11/24/2018 8:16 AM CDT)Only the most recent of16 results within the time period is included. POC-Glucose Meter 87Comment: TESTED AT 70 - 110 mg/dL [address] [address] Specimen Blood Performing Organization Address City/State/Zipcode Phone Number [address] [address] CENTER CBC with platelet count + automated diff (11/24/2018 5:53 AM CDT)Only the most recent of11 resultswithin the time period is included. WBC 12.5 (H) 3.5 - 10.5 K/L [facility] RBC 3.15 (L) 4.63 - 6.08 M/L [facility] Hemoglobin 8.6 (L) 13.7 - 17.5 GM/DL [facility] Hematocrit 28.6 (L) 40.1 - 51.0 % [facility] MCV 90.8 79.0 - 92.2 fL [facility] MCH 27.3 25.7 - 32.2 pg [facility] MCHC 30.1 (L) 32.3 - 36.5 GM/DL [facility] RDW 24.3 (H) 11.6 - 14.4 % [facility] Platelets 427 150 - 450 K/CU MM [facility] MPV 9.5 9.4 - 12.4 fL [facility] nRBC 0 0 - 0 /100 WBC [facility] % Neutros 73 % [facility] % Lymphs 8 % [facility] % Monos 8 % [facility] % Eos 8 % [facility] % Baso 1 % [facility] # Neutros 9.15 (H) 1.78 - 5.38 K/L [facility] # Lymphs 1.03 (L) 1.32 - 3.57 K/L [facility] # Monos 0.98 (H) 0.30 - 0.82 K/L [facility] # Eos 1.02 (H) 0.04 - 0.54 K/L [facility] # Baso 0.07 0.01 - 0.08 K/L [facility] Immature Granulocytes-Relative 2 (H) 0 - 1 % [facility] Specimen Blood Performing Organization Address City/[facility] Phone Number [address] [address] CENTER Magnesium (11/24/2018 5:53 AM CDT)Only the most recent of11 resultswithin the time period is included. Magnesium 1.9Comment: Specimen slightly 1.6 - 2.6 mg/dL [facility] hemolyzed [facility] Specimen Blood Performing Organization Address City/[facility]/Zipcode Phone Number [address] [address] CENTER Basic Metabolic Panel (11/24/2018 5:53 AM CDT)Only the most recent of3 results within the time period is included. Sodium 140 136 - 145 meq/L [facility] Potassium 4.3Comment: Specimen slightly 3.5 - 5.1 meq/L [facility] hemolyzed [facility] Chloride 106 98 - 107 meq/L [facility] CO2 26 22 - 29 meq/L [facility] BUN 37 (H) 7 - 21 mg/dL [facility] Creatinine 2.17 (H)Comment: Specimen 0.57 - 1.25 mg/dL [facility] slightly hemolyzed [facility] Glucose 96 70 - 105 mg/dL [facility] Calcium 8.2 (L) 8.4 - 10.2 mg/dL [facility] EGFR 30Comment: ESTIMATED GFR IS mL/min/1.73 sq m [facility] NOT ACCURATE CREATININE [facility] CLEARANCE IN PREDICTING GLOMERULAR FILTRATION RATE. ESTIMATED GFR IS NOT APPLICABLE FOR DIALYSIS PATIENTS. Specimen Blood Performing Organization Address City/State/Zipcode Phone Number [facility] [facility] [address] [place] [address] CENTER Transesophageal echo (11/23/2018 10:57 AM CDT) Ejection Fraction [facility] ECHO HEAR TLAB [facility] Specimen Narrative Performed At Transesophageal Echocardiography Report (SAMUEL) [facility] ECHO HEARTLAB [facility] Demographics Patient Name Jay ESCALANTE of Study11/23/2018 SELINA [id number] Gender Male Visit Number [id number] Unknown [id number] Room [id number] Number Date of Birth1945Referring Francisco Can MD Physician Age73 year(s)Operations Support Specialist Maykel Nolasco, Physician Fellow DANTE Bardales Procedure Type of Study SAMUEL procedure:TRANSESOPHA GEAL ECHO Indications:Atrial fibrillation. Clinical History A-FIB,CANCER,CHF,CAD,GOUT,HEART ATTACK,HTN,REFLUX,S/P STENT ,HE RNIA REPAIR Height: 69 inches Weight: 84.82 kg [...] LA appendage length is 3.55 cm at approxima tely 90 de grees. LA appendage ostium diameter is 2.46 cm at ap proximately 45 degrees. LA appendage length is 3.14 cm at approxima tely 45 de grees. LA appendage ostium diameter is 3.58 cm at ap proximately 0 degrees. LA appendage length is 3.53 cm at approxima tely 0 de grees. LA appendage ostium diameter is 3.27 cm at ap proximately 135 degrees. LA appendage length is 2.99 cm at approxima tely 135 de grees. Right VentricleThe right ventricular chamber size and systolic fu nction are within normal limits. Right Atrium RA size is severely dilated. RA catheter is visualized . Atrial SeptumIV saline contrast injection was negative for a PF O (p atent foramen ovale) at rest . Aortic Valve Mild AoV cusp thickening. Mi ld AoV cusp calcification. Ao V cusp mobility is normal . Th ere is mild aortic regurgitation. Mitral Valve Severe eccentric mitral regurgiation. EROA 0.52 cm 2. Po steriorly directed MR jet due to A3 segm ent pr olapse of the anterior mitral valve leaf let. P3 se gment of the posterior mitral valve is a lso pr olapsed. Tricuspid ValveTV structure is normal. Se sivan tricuspid regurgitation. Es timated peak systolic PA pressure is 35- 40 mmHg + RA pressure. Pulmonic Valve Normal PV structure and function by limited views an d Doppler. AortaAortic root size (SInus of Valsalva diameter) i s no rmal . Calcification of the aortic root noted. PericardiumNo significant pericardial effusion is visualized. IVC/SVC/PA/PV/PleuralThe visualized SVC appears normal. A catheter is vi sualized within the SVC with fibrinous m aterial at tached. Doppler/Quantitative Measurements Mitral Valve PISA Radius: 1.17 cmMR Velocity: 4.44 m/s MR VTI: 132.65 cm MV EROA (PISA): 8.6 c m^2 MV Jose. Peak: Procedure Note Interface, External Ris In - 11/25/2018 1:54 PM CDT Transesophageal Echocardiography Report (SAMUEL) Demographics Patient Name TAM ESCALANTE Date of Study 11/23/2018 SELINA Gend er Male Visit Number [id number] Race Unknown Room Number 960 Number Date of 1945 Refe devan olivera Age 73 year(s) Jacksono isaura Us Inte rpreting Mica Allen MD Fellow DANTE Bardales Procedure Type of Study SAMUEL procedure:TRANSESOPHAGEAL ECHO Indications:Atrial fibrillation. Clinical History A-FIB,CANCER,CHF,CAD,GOUT,HEART ATTACK,H TN,REFLUX,S/P STENT ,HERNIA REPAIR Height: 69 inches Weight: 84.82 kg (187 lbs) BSA: 2.01 m^2 BMI: 27.61 kg/m^2 HR: 76 bpm BP: 123/71 mmHg Procedure Informed Consent SAMUEL procedure notes Moderate sedation by performing MD mara sheehan 3 mg IV versed and 50 mcg IV fentanyl. . Summary Normal overall left ventricular systoli c function. LA size is severely enlarged . No LA appendage Thrombus visualized. ANUPAM measurements per watchman protocol noted below. There is mild aortic regurgitation. Severe eccentric mitral regurgiation. E EDVIN 0.52 cm2. Posteriorly directed MR jet due to A3 s egment prolapse of the anterior mitral valve leaflet. P3 segment of the posterior mitral valve is also prolapsed. Severe tricuspid regurgitation. Estimated peak systolic PA pressure is 35-40 mmHg + RA pressure. Signature Findings Rhythm/BP Atrial fibrillat ion with controlled ventricular response. Left Ventricle Normal overall l eft ventricular systolic function. All segments con tract normally. Normal left vent ricle cavity size. Left Atrium LA size is sever kennedi enlarged . No LA appendage Thrombus visualized. LA appendage ost ium diameter is 3.19 cm at approximately 90 degrees. LA appendage madai gth is 3.55 cm at approximately 90 degrees. LA appendage ost ium diameter is 2.46 cm at approximately 45 degrees. LA appendage madai gth is 3.14 cm at approximately 45 degrees. LA appendage ost ium diameter is 3.58 cm at approximately 0 degrees. LA appendage madai gth is 3.53 cm at approximately 0 degrees. LA appendage ost ium diameter is 3.27 cm at approximately 13 5 degrees. LA appendage madai gth is 2.99 cm at approximately 135 degrees. Right Ventricle The right ventri cular chamber size and systolic function are wit hin normal limits. Right Atrium RA size is sever kennedi dilated. RA catheter is v isualized . Atrial Septum IV saline contra st injection was negative for a PFO (patent foramen ovale) at rest . Aortic Valve Mild AoV cusp th ickening. Mild AoV cusp ca lcification. AoV cusp mobilit y is normal . There is mild ao rtic regurgitation. Mitral Valve Severe eccentric mitral regurgiation. EROA 0.52 cm2. Posteriorly dire cted MR jet due to A3 segment prolapse of the anterior mitral valve leaflet. P3 segment of the p osterior mitral valve is also prolapsed. Tricuspid Valve TV structure is normal. Severe tricuspid regurgitation. Estimated peak s ystolic PA pressure is 35-40 mmHg + RA pressure. Pulmonic Valve Normal PV struct ure and function by limited views and Doppler. Aorta Aortic root size (SInus of Valsalva diameter) is normal . Calcifi cation of the aortic root noted. Pericardium No significant p ericardial effusion is visualized. IVC/SVC/PA/PV/Pleural The visualized S VC appears normal. A catheter is visualized withi n the SVC with fibrinous material attached. Doppler/Quantitative Measurements Mitral Valve PISA Radius: 1.17 cm MR Ve locity: 4.44 m/s MR VT I: 132.65 cm MV ER OA (PISA): 8.6 cm^2 MV Jose. Peak: Performing Organization Address City/[facility]/Zipcode Phone Number [facility]CHO HEART[facility] Calcium, Ionized (11/23/2018 4:25 AM CDT)Only the most recent of9 resultswithin the time period is included. Calcium, Ion 1.02 (L) 1.12 - 1.27 mmol/L [facility] pH, Blood 7.48 [facility] Specimen Blood Performing Organization Address City/State/Zipcode Phone Number [facility] [address] [place] [address] CENTER Phosphorus (11/23/2018 4:25 AM CDT)Only the most recent of10 resultswithin the time period is included. Phosphorus 3.2 2.3 - 4.7 mg/dL [facility] Specimen Blood Performing Organization Address City/State/Zipcode Phone Number [facility] [address] [place] [address] CENTER Comprehensive metabolic panel (11/23/2018 4:25 AM CDT)Only the most recent of9 resultswithin the time period is included. Protein, Total 5.1 (L) 6.0 - 8.3 gm/dL [facility] Albumin 2.9 (L) 3.5 - 5.0 g/dL [facility] Alkaline Phosphatase 286 (H) 40 - 150 U/L [facility] Total Bilirubin 1.1 0.2 - 1.2 mg/dL [facility] Sodium 141 136 - 145 meq/L [facility] Potassium 3.6 3.5 - 5.1 meq/L [facility] Chloride 106 98 - 107 meq/L [facility] CO2 27 22 - 29 meq/L [facility] BUN 30 (H) 7 - 21 mg/dL [facility] Creatinine 1.88 (H) 0.57 - 1.25 mg/dL [facility] Glucose 107 (H) 70 - 105 mg/dL [facility] Calcium 8.2 (L) 8.4 - 10.2 mg/dL [facility] AST 44 (H) 5 - 34 U/L [facility] ALT 46 6 - 55 U/L [facility] EGFR 35Comment: ESTIMATED GFR mL/min/1.[address] [facility] IS NOT ACCURATE [facility] CREATININE CLEARANCE IN PREDICTING GLOMERULAR FILTRATION RATE. ESTIMATED GFR IS NOT APPLICABLE FOR DIALYSIS PATIENTS. Specimen Blood Performing Organization Address [facility]/Zipcode Phone Number [address] [address] [place] Hepatitis B Panel (11/22/2018 7:04 PM CDT) Hep B Core Total Ab Nonreactive Nonreactive [facility] Hep B S Ab <8.0 <8.0 mIU/mL [facility] HBsAg Screen Nonreactive Nonreactive [facility] Specimen Blood Performing Organization Address [facility] Phone Number [address] [address] CENTER Iron, TIBC, % sat. (without ferritin) (11/20/2018 3:56 AM CDT) Iron 33.0 (L) 40.0 - 160.0 ug/dL [facility] TIBC 161 (L) 250 - 450 ug/dL [facility] Iron % Saturation 20 20 - 55 % [facility] Specimen Blood Performing Organization Address [facility] Phone Number [address] [address] CENTER Reticulocyte count (11/20/2018 3:56 AM CDT) % Retic 3.5 (H) 0.5 - 1.8 % [facility] Specimen Blood Performing Organization Address [facility]/Zipcode Phone Number [address] [address] CENTER Ferritin (11/20/2018 3:56 AM CDT) Ferritin 162 5 - 275 ng/mL [facility] Specimen Blood Performing Organization Address [facility]/Zipcode Phone Number [address] [place] [address] CENTER HEMODIALYSIS INPATIENT (11/19/2018 9:58 PM CDT) Narrative Performed At Alivia Hansen RN 11/19/2018 9:58 PM 3 hours HD completed. Net UF of 2.5 L. P t tolerated tx well. Reports given to primary [...] 01/05/2013 Melena 01/05/2013 Congestive heart failure (HCC) 01/06/20 13 Abnormal liver enzymes 01/05/2013 Screening for cancer 01/05/2013 Coronary artery disease 01/05/2013 GI bleed 01/05/2013 Alcohol use 09/02/2013 Overweight 09/02/2013 Hyperlipidemia 09/02/2013 Renal insufficiency 09/02/2013 Fatty liver 09/02/2013 Pruritus 10/25/2015 Resolved Ambulatory Problems Diagnosis Date Noted GI bleeding 01/05/2013 CHF (congestive heart failure) (HCC) Past Medical History: Diagnosis Date Atrial fibrillation (HCC) Blood transfusion without reported diag nosis Cancer (HCC) CHF (congestive heart failure) (HCC) Coronary artery disease Gout Heart attack (HCC) Hypertension Infarction of heart 2000, 2009 Reflux Past Surgical History: Procedure Laterality Date CATARACT EXTRACTION COLONOSCOPY01/07/2013 Procedure: COLONOSCOPY;Surgeon: Sami Berry MD; Location: [facility];Service: Gastroe nterology;Laterality: N/A; COLONOSCOPY N/A 08/02/2018 Procedure: COLONOSCOPY;Surgeon: Skyler Pino MD;Location: [facility];Service: Gastroenterology; Laterality: N/A; CORONARY ANGIOPLASTY WITH STENT PLACEME [id number] and 2009 2000 ENTEROSCOPY,BIOPSY N/A 11/15/2018 Procedure: ENTEROSCOPY,BIOPSY;Surge on: Vero Pace MD; Location: [facility];Service: Gastroe nterology;Laterality: N/A;ENTEROSCOPY with Anesthesia EYE SURGERY Bilateral 2008 HERNIA REPAIR hernia repair R & L CATH01/12/2013 Procedure: R & L CATH;Surgeon: Reynaldo Naylor MD;Location: [facility];Service: Cardiology; Laterality: Bilateral; SKIN BIOPSY back melanoma UPPER ENDOSCOPY01/06/2013 Procedure: UPPER ENDOSCOPY;Surgeon: Dina Berry MD;Location: [facility];Service: Gastroenterology; Laterality: N/A;UPPER ENDOSCOPY UPPER ENDOSCOPY N/A 08/02/2018 Procedure: UPPER ENDOSCOPY;Surgeon: Skyler Carrillo MD; Location: [facility];Service: Gastroe nterology;Laterality: N/A; Alivia Hansen RN C-Reactive Protein (11/19/2018 10:14 AM CDT) CRP 12.99 (H) 0.00 - 0.50 mg/dL [facility] Specimen Blood Performing Organization Address City/State/Zipcode Phone Number [place] [phone] [place] [address] CENTER XR knee 1 or 2 views left (11/19/2018 9:54 AM CDT) Specimen Narrative Performed At FINAL REPORT [facility] TECHNIQUE: Frontal and lateral and obliq ue radiographs of both knees dated 11/19/2018 HISTORY: Knee pain, gout COMPARISON: None. FINDINGS: No fracture or dislocation in either kne e. Bones are osteopenic. There are small bilateral suprapatellar joint effusions. No bone erosion or soft tissue nodule seen. No r adiodense foreign body or subcutaneous emphysema. IMPRESSION: No fracture or dislocation in either kne e. Small bilateral suprapatellar joint effu sions. Signed: Jean-Paul Santos MD Report Verified Date/Time:11/19/2018 10:15:39 Reading Location: [facility] Radiology Reading Room Procedure Note Interface, External Ris In - 11/19/2018 10:17 AM CDT FINAL REPORT TECHNIQUE: Frontal and lateral and obliq ue radiographs of both knees dated 11/19/2018 HISTORY: Knee pain, gout COMPARISON: None. FINDINGS: No fracture or dislocation in either kne e. Bones are osteopenic. There are small bilateral suprapatellar joint effusions. No bone erosion or soft tissue nodule seen. No r adiodense foreign body or subcutaneous emphysema. IMPRESSION: No fracture or dislocation in either kne e. Small bilateral suprapatellar joint effu sions. Signed: Jean-Paul Santos MD Report Verified Date/Time: 11/19/2018 1 0:15:39 Reading Location: [facility] Radiology Reading Room Performing Organization Address City/State/Zipcode Phone Number [employer] XR knee 1 or 2 views right (11/19/2018 9:46 AM CDT) Specimen Narrative Performed At FINAL REPORT [employer] TECHNIQUE: Frontal and lateral and obliq ue radiographs of both knees dated 11/19/2018 HISTORY: Knee pain, gout COMPARISON: None. FINDINGS: No fracture or dislocation in either kne e. Bones are osteopenic. There are small bilateral suprapatellar joint effusions. No bone erosion or soft tissue nodule seen. No r adiodense foreign body or subcutaneous emphysema. IMPRESSION: No fracture or dislocation in either kne e. Small bilateral suprapatellar joint effu sions. Signed: Jean-Paul Santos MD Report Verified Date/Time:11/19/2018 10:15:39 Reading Location: [facility] Radiology Reading Room Procedure Note Interface, External Ris In - 11/19/2018 10:17 AM CDT FINAL REPORT TECHNIQUE: Frontal and lateral and obliq ue radiographs of both knees dated 11/19/2018 HISTORY: Knee pain, gout COMPARISON: None. FINDINGS: No fracture or dislocation in either kne e. Bones are osteopenic. There are small bilateral suprapatellar joint effusions. No bone erosion or soft tissue nodule seen. No r adiodense foreign body or subcutaneous emphysema. IMPRESSION: No fracture or dislocation in either kne e. Small bilateral suprapatellar joint effu sions. Signed: Jean-Paul Santos MD Report Verified Date/Time: 11/19/2018 1 0:15:39 Reading Location: [facility] Radiology Reading Room Performing Organization Address City/State/Zipcode Phone Number [employer] ECG 12 lead (11/17/2018 7:01 PM CDT)Only the most recent of2 resultswithin the time period is included. Specimen Narrative Performed At Ventricular Rate 102 BPM GE MUSE Atrial Rate 90 BPM QRS Duration 104 ms Q-T Interval 398 ms QTC Calculation(Bazett) 518 ms R Polson -25 degrees T Polson 48 degrees Atrial fibrillation with rapid ventricul ar response Low voltage QRS Abnormal ECG When compared with ECG of 15-NOV-2018 04 :23, No significant change was found Confirmed by Juan ONEAL MICHAEL ([id number]) on 7:46:11 AM Procedure Note Interface, External Ris In - 11/18/2018 7:46 AM CDT Ventricular Rate 102 BPM Atrial Rate 90 BPM QRS Duration 104 ms Q-T Interval 398 ms QTC Calculation(Bazett) 518 ms R Polson -25 degrees T Polson 48 degrees Atrial fibrillation with rapid ventricul ar response Low voltage QRS Abnormal ECG When compared with ECG of 15-NOV-2018 04 :23, No significant change was found Confirmed by Juan ONEAL MICHAEL ([id number]) on 11/18/2018 7:46:11 AM Performing Organization Address City/State/Zipcode Phone Number [employer] TRANSFUSION SERVICE REPORT - SCAN (11/17/2018 6:02 PM CDT)Only the most recent of3 resultswithin the time period is included. Narrative Performed At This result has an attachment that is no t available. Hemoglobin and hematocrit (11/17/2018 3:31 PM CDT)Only the most recent of11 resultswithin the time period is included. Hemoglobin 9.4 (L) 13.7 - 17.5 GM/DL [facility] Hematocrit 31.4 (L) 40.1 - 51.0 % [facility] Specimen Blood Performing Organization Address City/State/Zipcode Phone Number [facility] [address] [place] [address] CENTER NM GI bleed study (11/17/2018 2:16 PM CDT) Specimen Narrative Performed At FINAL REPORT GE RIS PROCEDURE: HEMORRHAGE STUDY with RBCs CPT CODE: 76755 INDICATION: Gastrointestinal Bleeding PROTOCOL: 22.0 mCi ofTc-99m was inject ed intravenously as labeled autologous red blood cells. Flow images of the abdomen were obtained, followed by serial images for approximately 60 minutes. Additional images were obtained 7 and 29 .5 hours after tracer injection. FINDINGS:There is physiological tr acer distribution in the blood pool on initial flow and 1 hour im aging. Minimal activity is seen in the left kidney on delayed 7 and 29.5 hours imaging. No definitive, abnormal accumulation of tra cer is visualized within the abdomen. IMPRESSION:Negative study. No evidence of localized, active or interval hemorrhage is seen. Signed: Malachi Villalpando MD Report Verified Date/Time:11/17/2018 15:07:00 Reading Location: [address] Reading Room Procedure Note Interface, External Ris In - 11/17/2018 3:09 PM CDT FINAL REPORT PROCEDURE: HEMORRHAGE STUDY with RBC s CPT CODE: [id number] INDICATION: Gastrointestinal Bleed ing PROTOCOL: 22.0 mCi of Tc-99m was injected intravenously as labeled autologous red blood cells. Flow images of the abdomen were obtained, followed by serial images for approximately 60 minutes. Additional images were obtained 7 and 29 .5 hours after tracer injection. FINDINGS: There is physiologica l tracer distribution in the blood pool on initial flow and 1 hour im aging. Minimal activity is seen in the left kidney on delayed 7 and 29.5 hours imaging. No definitive, abnormal accumulation of tra cer is visualized within the abdomen. IMPRESSION: Negative study. No evid ence of localized, active or interval hemorrhage is seen. Signed: Malachi Villalpando MD Report Verified Date/Time: 11/17/2018 1 5:07:00 Reading Location: [address] Reading Room Performing Organization Address City/State/Zipcode Phone Number GE RIS Vancomycin level, random (11/17/2018 8:15 AM CDT)Only the most recent of2 resultswithin the time period is included. Vancomycin Rm 16.1 ug/mL [facility] Specimen Blood Narrative Performed At Reference Range: No Normals [facility] Performing Organization Address [facility] Phone Number [facility] [address] [place] [address] CENTER Prepare Leuko-Red PLT (11/16/2018 11:54 PM CDT) Unit ABO AB Pos [place] UNIT NUMBER [id number] [place] Status [place]_TIMEINCHART [place] Blood Bank Product PLATELETS [place] PRODUCT CODE [id number] [place] Specimen Blood Performing Organization Address [facility] Phone Number [place] Prepare Leuko-Red RBC (11/16/2018 11:54 PM CDT)Only the most recent of2 results within the time period is included. CROSSMATCH COMPATIBLE [place] Unit ABO O Pos [place] UNIT NUMBER [id number] [place] Status TX_TIMEINCHART [place] Blood Bank Product RED BLOOD CELLS [place] PRODUCT CODE [id number] [place] Specimen Other Performing Organization Address [facility] Phone Number [place] [place] Prepare plasma (11/16/2018 11:54 PM CDT) Unit ABO O Pos [place] UNIT NUMBER [id number] [place] Status TX_TIMEINCHART [place] Blood Bank Product FFP [place] PRODUCT CODE [id number] [place] Specimen Blood Performing Organization Address [facility]/Zipcode Phone Number [place] Platelet Aggregation: Function Screen (11/16/2018 7:59 PM CDT) Weak ADP 90 60 - 91 % [facility] ER Plt. Function Screen 60-100% indicates [facility] Interpretation normal platelet [facility] ER function Pathologist: Kyle Man MD [facility] (electronic [facility] ER signature) Platelets 215 150 - 450 K/CU MM [facility] ER Specimen Blood Narrative Performed At Platelet Function Screen results may be [facility] falsely low with platelet counts <100,000/cu mm. mollyto Performing Organization Address [facility]/Zipcode Phone Number [address] [address] CENTER PT/aPTT (11/16/2018 6:43 PM CDT) Protime 15.1 (H) 11.9 - 14.2 seconds [facility] INR 1.2 <=5.9 [facility] PTT 42.8 (H) 22.5 - 36.0 seconds [facility] Specimen Blood Narrative Performed At Effective 10/27/2018: PT Reference Range [facility] Change New: 11.9-14.2Previous: 11.7-14.7 RECOMMENDED COUMADIN/WARFARIN INR THERAPY RANGES STANDARD DOSE: 2.0-3.0Includes: PROPHYLAXIS for venous thrombosis, systemic embolization; TREATMENT for venous thrombosis and/or pulmonary embolus. HIGH RISK: Target INR is 2.5-3.5 for patients wiht mechanical heart valves. Performing Organization Address City/State/Zipcode Phone Number [address] [address] CENTER Heparin Assay - Unfractionated (11/16/2018 6:43 PM CDT) Anti 10A-Unfractionated 0.12 (L) 0.30 - 0.70 u/ml [facility] Heparin [facility] Specimen Blood Narrative Performed At Recommendations for Monitoring Unfractionated [facility] Heparin Therapeutic Range: 0.3-0.7 u/mL with continuous IV infusion Performing Organization Address [facility] Phone Number [facility] [address] [place] [address] [place] Heparin Assay - Low Molecular Weight (11/16/2018 6:43 PM CDT) Anti 10A-Lovenox 0.10 (L) 0.60 - 2.00 u/ml [facility] Specimen Blood Narrative Performed At Anti-Factor 10-A Level (Heparin Assay for Low [facility] Molecular Weight Heparin) Monitoring Guidelines: Blood samples should be obtained 4 hours post subcutaneous injection (time of Peak level) Therapeutic Peak Levels: 0.6-1.0 units/mLtwice daily enoxapa rin 1.0-2.0 units/mLonce daily enoxapar in Ref: CHEST 2012;141:[id number] Performing Organization Address [facility] Phone Number [facility] [address] [place] [address] [place] Thromboelastograph (TEG) (11/16/2018 9:46 AM CDT)Only the most recent of2 resultswithin the time period is included. TEG Activated Clotting Time 4.3 4.0 - 7.0 minutes [facility] TEG Fibrinogen Activity 77.9 (H) 61.0 - 73.0 degrees [facility] TEG Platelet Aggregation 73.2 (H) 55.0 - 65.0 MM [facility] TEG Fibrinolysis 0.0 0.0 - 5.0 % [facility] TEG-H Activated Clotting Time 4.4 4.0 - 7.0 minutes [facility] TEG-H Fibrinogen Activity 77.1 (H) 61.0 - 73.0 degrees [facility] TEG-H Platelet Aggregation 69.6 (H) 55.0 - 65.0 [facility] TEG-H Fibrinolysis 0.0 0.0 - 5.0 % [facility] Specimen Blood Performing Organization Address [facility] Centercode Phone Number [address] [address] CENTER REPORT OF PROCEDURE - ENDOSCOPY URL (11/15/2018 6:13 PM CDT) Narrative Performed At This result has an attachment that is no t available. Transfuse Leuko-Red RBC (11/15/2018 4:03 PM CDT)Only the most recent of4 resultswithin the time period is included.Transfuse Leuko-Red PLT (11/15/2018 2:08 PM CDT)Only the most recent of2 resultswithin the time period is included. Hepatitis B surface antigen (11/15/2018 9:07 AM CDT) HBsAg Screen Nonreactive Nonreactive [facility] Specimen Blood Narrative Performed At For chronic HD patients, draw HBsAg with each [facility] admission then every 30 days. Performing Organization Address [facility] Centercoks Phone Number [address] [address] CENTER Ammonia (11/15/2018 9:07 AM CDT) Ammonia 34 18 - 72 mol/L [facility] Specimen Blood Performing Organization Address City/[facility]/Zipcode Phone Number [place] [phone] [place] [address] CENTER Manual Differential (11/15/2018 5:01 AM CDT)Only the most recent of2 results within the time period is included. % Neutros 91 % [facility] % Lymphs 3 % [facility] % Monos 3 % [facility] % Eos 3 % [facility] # Neutros 12.56 (H) 1.78 - 5.38 K/ul [facility] # Lymphs 0.41 (L) 1.32 - 3.57 K/ul [facility] # Monos 0.41 0.30 - 0.82 K/uL [facility] # Eos 0.41 0.04 - 0.54 K/uL [facility] Total Counted [address] [facility] WBC Morph[facility] Normal [facility] Platelet Morphology Normal [facility] Polychromasia 1+ few [facility] Hypochrom[facility] 1+ few [facility] Anisocytosis 1+ few [facility] Microcytes 1+ few [facility] Poikilocytes 1+ few [facility] Ovalocytes 1+ few [facility] Artifact Present [facility] Platelet Conc Adequate [facility] Specimen Blood Narrative Performed At Received comment: [facility] User comments: Slide comments: Performing Organization Address City/State/Zipcode Phone Number [facility] [address] [place] [address] CENTER Transfuse plasma (11/15/2018 1:48 AM CDT)Only the most recent of2 resultswithin the time period is included.Urinalysis w/Microscopic + Reflex to Culture (11/14/2018 10:57 PM CDT) Color, UA Yellow [facility] Clarity, UA Hazy [facility] Specific [place], UA 1.012 1.001 - 1.035 [facility] pH, UA 5.0 5.0 - 8.0 [facility] Protein, UA 10 mg/dL (A) Negative [facility] Glucose, UA Negative Negative [facility] Ketones, UA Negative Negative [facility] Bilirubin, UA Negative Negative [facility] Blood, UA Moderate (A) Negative [facility] Nitrite, UA Negative Negative [facility] Leukocytes, UA Large (A) Negative [facility] Urobilinogen, UA 0.2 0.2 - 1.0 mg/dL [facility] RBC, UA 240 /HPF [facility] WBC, UA 87 /HPF [facility] Mucus Occasional [facility] Squam Epithel, UA 1 /HPF [facility] Hyaline Casts, UA 13 /LPF [facility] Granular Casts, UA 2 /LPF [facility] Specimen Source [facility] Specimen Urine Performing Organization Address City/State/Zipcode Phone Number [address] [address] [place] Urine culture (11/14/2018 10:57 PM CDT) Result No growth [facility] Specimen Urine Performing Organization Address City/[facility]/Zipcode Phone Number [address] [address] [place] Procalcitonin (11/14/2018 10:44 PM CDT) Procalcitonin 1.37 (H) <0.05 ng/mL [facility] Specimen Blood Narrative Performed At SEPSIS RISK (ng/mL) [facility] Low:0.05-0.50 Intermediate: 0.51-2.00 High: >=2.01 Performing Organization Address [facility]ercoks Phone Number [address] [address] CENTER Lactic acid, venous (11/14/2018 10:44 PM CDT) Lactate, Venous 0.7 0.5 - 2.2 mmol/L [facility] Specimen Blood Performing Organization Address [facility] Centercoks Phone Number [address] [phone] CENTER Blood Culture - Routine (Right Venipuncture) (11/14/2018 10:13 PM CDT)Only the most recent of2 resultswithin the time period is included. Result No growth in 5 days [facility] Specimen Blood Performing Organization Address [facility] Centercoks Phone Number [address] [address] CENTER Type and screen, automated (11/14/2018 8:09 PM CDT) ABO/RH AUTOMATED (BEAKER) O POSITIVE [facility] Ab Scrn NEGATIVE [facility] Specimen Blood Performing Organization Address [facility] Centercoks Phone Number [address] [address] XR chest 1 view portable / bedside (11/14/2018 7:49 PM CDT) Specimen Narrative Performed At FINAL REPORT [facility] EXAMINATION: AP PORTABLE CHEST RADIOGRAP H CLINICAL INDICATION: Central line placem ent IMPRESSION: Compared with 08/03/2018. Tip of the right-sided dialysis catheter projects over the right atrium. Tip of the left jugular central line projects over the superior mediastinum just to right mid o f midline. The heart is enlarged as before. Mediast inal contours are grossly similar allowing for differences in tech nique and positioning. Opacities are noted in both lungs with a relatively symmetric predominantly central distribution. Alth ough a component may reflect atelectasis, pulmonary edema should also be considered. A pneumonia or sequela from aspiration cannot be exc luded. No evidence of a large pleural effusion or pneumothorax. Signed: Berna Robles MD Report Verified Date/Time:11/14/2018 21:29:04 Reading Location: [address] Reading Room Procedure Note Interface, External Ris In - 11/14/2018 9:31 PM CDT FINAL REPORT EXAMINATION: AP PORTABLE CHEST RADIOGRAP H CLINICAL INDICATION: Central line placem ent IMPRESSION: Compared with 08/03/2018. Tip of the right-sided dialysis catheter projects over the right atrium. Tip of the left jugular central line projects over the superior mediastinum just to right mid o f midline. The heart is enlarged as before. Mediast inal contours are grossly similar allowing for differences in tech nique and positioning. Opacities are noted in both lungs with a relatively symmetric predominantly central distribution. Alth ough a component may reflect atelectasis, pulmonary edema should also be considered. A pneumonia or sequela from aspiration cannot be exc luded. No evidence of a large pleural effusion or pneumothorax. Signed: Berna Robles MD Report Verified Date/Time: 11/14/2018 2 1:29:04 Reading Location: [address] Reading Room Performing Organization Address City/State/Zipcode Phone Number [facility] Central Line Insertion (11/14/2018 7:16 PM CDT) Narrative Performed At [facility] 11/14/2018 7:17 PM Procedure Note Procedure: Internal Jugular Central Veno us Catheter with Ultrasound Guidance Indication: Hypovolemic shock Consent: none given critical nature of p rocedure Procedure Summary: A time-out was perfor med. The patient's left neck region was prepped and draped in st erile fashion using chlorhexidine scrub. Anesthesia was achi eved with 1% lidocaine. The left internal jugular vein was acces sed under ultrasound guidance using a finder needle. Venous b lood was withdrawn and a guidewire was advanced through the needl e. A small incision was made with a 10 blade scalpel and the nee dle was exchanged for a dilator over the guidewire until appropr iate dilation was obtained. The dilator was removed and an 7 Albanian central venous triple lumen catheter was advanced over the guidewire and secured into place with sutures. At time of proc edure completion, all ports aspirated and flushed properly. Po st-procedure x-ray ordered and pending at this time. Complications: none Estimated Blood Loss: Minimal, <5mL Andres Martinez MD Clinical Fellow in Cardiology, PGY5 [facility] Office: [phone] | Pager: [phone] Prothrombin time/INR (11/14/2018 6:28 PM CDT) Protime 17.9 (H) 11.9 - 14.2 seconds [facility] INR 1.6 <=5.9 [facility] Specimen Blood Narrative Performed At Effective 10/27/2018: PT Reference Range [facility] Change New: 11.9-14.2Previous: 11.7-14.7 RECOMMENDED COUMADIN/WARFARIN INR THERAPY RANGES STANDARD DOSE: 2.0-3.0Includes: PROPHYLAXIS for venous thrombosis, systemic embolization; TREATMENT for venous thrombosis and/or pulmonary embolus. HIGH RISK: Target INR is 2.5-3.5 for patients wiht mechanical heart valves. Performing Organization Address City/State/Zipcode Phone Number [facility] [address] [place], [place] [phone] CENTER after 10/17/2018 Insurance Payer Benefit Plan / Subscriber ID Type Phone Address Group MEDICARE MEDICARE A B xxxxxxxxxxx Medicare BLUE CROSS/BLUE [place] IN[place]MNITY [place] xxxxxxxxxxxx PPO [address] [place] [address] Guarantor Name Account Type Relation to Date of Phone Billing Patient Address [place] Personal/Family Self 1945 [id number] (Home) [facility] [place] [phone] (Work) Advance Directives For more information, please contact:[place] [id number] [place], [place] [phone] Code Status Date Activated Date Inactivated Comments Full Code 11/14/2018 6:15 PM 11/24/2018 1:27 PM This code status was determined by: Patient Full Code 08/01/2018 3:40 AM 08/03/2018 8:32 PM This code status was determined by: Patient Code ONE 01/11/2013 7:33 PM 01/13/2013 7:59 PM All possib le means of support including;cardia c massage, mechanical ventilation, and defibrillation will be used to suppo rt life.
--- OUTSIDE RECORDS SUMMARY | 2019-10-18 13:41 | XMS REPORT ---
:1945 Author Organization [facility] t Address [address] [place] [address] Care Team Providers Name Role Phone Hunter SEYMOUR Primary Care Physician Juvenal Mcintyre MD Attending Clinician Arpit Tejada MD Attending Clinician Nawaf MITCHELL Attending Clinician Elizabeth SEYMOUR, J. Attending Clinician Denis SEYMOUR, T. Attending Clinician Shelton SEYMOUR, J. Attending Clinician Scot CRISTINA Attending Clinician Unavailable MARGAUX LAWRENCE Attending Clinician Unavailable VIVIANA NGUYEN Attending Clinician Unavailable MARGAUX LAWRENCE Admitting Clinician Unavailable VIVIANA NGUYEN Admitting Clinician Unavailable Payers Payer Name Policy Policy Number Effective Expiration Source Type Date Date MEDICAREMEDICARE PART xxxxxxxxxxx 2011 Bhavesh Zaragoza AND 00:00:00 [facility] [id number]/1[place] xxxxxxxxxxxx 2013 Suzan wayne MEDICARE 00:00:00 [facility] SUPPLEMENTxxxxxxxxxxx 2013-PresentCo mmercial Problems This patient has no known problems. Allergies, Adverse Reactions, Alerts Allergy Allergy Status Severity Reaction(s) Onset Inactive Treating Comm ents Source Name Type Date Date Clinician No Known DA Active U 2017-06 [facility] 07-04 [place] [facility] Family History Family Member Diagnosis Comments Start Date Stop Date Source Natural father Heart disease [facility] Natural mother Kidney disease [place] [facility] Social History Social Habit Start Date Stop Date Quantity Comments Source Sex Assigned At Circle M ethodist Alcohol intake 2019-08-23 2019-08-23 [facility] (finding) Alcohol Comment 2019-08-02 2019-08-02 very rare - red [place] [facility] 00:00:00 00:00:00 wine Smoking Status Start Date Stop Date Source Former smoker 2019-08-23 00:00:00 2019-08-23 00:00:00 [facility] Medications Ordered Filled Start Stop Current Ordering Indication Dosage Frequency Signature Comments Components Source Medication Medication Date Date Medication? Clinician (SIG) Name Name [place]DROcod[place] 2019- [place] [address] 1{tbl} Q6H Take 1 Circle -acetaminop 08-22- tablet by Ny geoff barnett (NORCO) 00:00: 04:[address] 10-325 mg 00 :00 every 6 per tablet (six) hours as needed for severe pain for up to 10 days .acute pain. Max Daily Amount: 4 tablets rivaroxaban 2019- No 15mg Take 15 mg Burt (XARELTO) 07-29 by mouth. Meth willian 15 mg 16:24: 00:00 st tablet 03 :00 traMADol 2018- No [id number] 50mg Q6H Take 1 [place] (ULTRAM) 50 9-10 09-18 tablet (50 M ethodi mg tablet 00:00: 04:59 mg total) st 00 :00 by mouth every 6 (six) hours as needed for moderate pain for up to 7 days .Acute Pain. traMADol 2018- No [id number] TAKE ONE Burt (ULTRAM) 50 9-03 09-10 (1) Methodi mg tablet 00:00: 00:00 TABLET(S) st 00 :00 BY MOUTH EVERY SIX HOURS NEEDED FOR MODERATE PAIN FOR UP TO 7 DAYS. [place] 2019- [place] [id number] 50mg Q6H Take 1 [place] (ULTRAM) 50 8-27 09-01 tablet (50 M ethodi mg tablet 00:00: 00:00 mg total) st 00 :00 by mouth every 6 (six) hours as needed for moderate pain for up to 7 days .chronic pain. traMADol 2019- No [id number] 50mg Q6H Take 1 [place] (ULTRAM) 50 8-21 08-27 tablet (50 M ethodi mg tablet 00:00: 00:00 mg total) st 00 :00 by mouth every 6 (six) hours as needed for moderate pain for up to 7 days. traMADol 2019- No [id number] 50mg Q6H Take 1 [place] (ULTRAM) 50 8-19 08-21 tablet (50 M ethodi mg tablet 00:00: 00:00 mg total) st 00 :00 by mouth every 6 (six) hours as needed for moderate pain for up to 5 days. traMADol 2019- No [id number] 50mg Q6H Take 1 [place] (ULTRAM) 50 7-30 08-19 tablet (50 M ethodi mg tablet 00:00: 00:00 mg total) st 00 :00 by mouth every 6 (six) hours as needed for moderate pain for up to 7 days. simvastatin Yes 20mg QD Take 20 mg [place]urt (ZOCOR) 20 6-08 by mouth Metho di MG tablet 00:00: daily. st 00 isosorbide 2020- No Take by Suzan ston mononitrate 4-17 02- mouth. Metho di (IMDUR) 30 00:00: 00:00 st MG 24 hr 00 :00 tablet allopurinol 2018- Yes 100mg Q.5D Take 100 [place] (ZYLOPRIM) 2-20 mg by Methodi 100 MG 00:00: mouth 2 st tablet 00 (two) times a day. torsemide 2018- Yes 20mg Q.5D Take 20 mg [place] (DEMADEX) 2-20 by mouth 2 Meth willian 20 MG 00:00: (two) st tablet 00 times a day. metoprolol Yes 50mg Q.5D Take 50 mg [place] tartrate 2-20 by mouth 2 Metho di (LOPRESSOR) 00:00: (two) st 100 mg 00 times a tablet day. folic acid Yes 1{tbl} QD Take 1 Suzan ston (FOLVITE) 1 2-20 tablet by Met hodi MG tablet 00:00: mouth st 00 daily. traZODone Yes 50mg QD Take 50 mg [place] (DESYREL) 2-20 by mouth Method i 50 MG 00:00: nightly. st tablet 00 apixaban 2020- No 2.5mg Q.5D Take 2.5 Suz[place] ston (ELIQUIS) 5-20 03-05 mg by Methodi 2.5 mg 00:00: 13:[address] tablet 00 :49 (two) times a day. Vital Signs Vital Name Observation Time Observation Value Comments Source Systolic blood 2019-08-02 20:57:00 113 mm[Hg] Ten[facility] n [facility] pressure Diastolic blood 2019-08-02 20:57:00 72 mm[Hg] [place] on [facility] pressure Heart rate 2019-08-02 20:57:00 100 /min Javed Rodriguez Body temperature 2019-08-02 20:57:00 36.72 Justine [place] [facility] Respiratory rate 2019-08-02 20:57:00 16 /min [place] [facility] Body height 2019-08-02 20:57:00 175.3 cm Javed Rodriguez Body weight 2019-08-02 20:57:00 81.194 kg Javed Rodriguez BMI 2019-08-02 20:57:00 26.43 kg/m2 Javed Rodriguez Oxygen saturation in 2019-08-02 20:57:00 99 /min Javed Rodriguez Arterial blood by Pulse oximetry Procedures Procedure Date / Time Performing Clinician Source Performed CT LUMBAR SPINE WO 2019-08-23 20:31:[address] THORACIC SPINE WO 2019-08-23 20:29:48 Edward Tejada CONTRAST XR LUMBAR SPINE COMPLETE 2019-08-23 18:39:20 Edward Tejada 4+ VW XR CHEST 2 VW 2019-08-02 22:04:56 Javed Johnson ECG PRE/POST OP 2019-08-02 21:41:57 Javed Johnson HC COMPLETE BLD COUNT 2019-08-02 20:51:00 Vernell Barrios W/AUTO DIFF TYPE AND SCREEN 2019-08-02 20:51:00 Vernell Barrios HEMOGLOBIN A1C 2019-08-02 20:51:00 Javed Johnson OR ARTHROCENTESIS 2019-01-25 15:40:00 Patel Peoples ethodist ASPIR&/INJ MAJOR JT/BURSA W/O US XR KNEE 4+ VW LEFT 2019-01-18 16:00:53 Patel Peoples OR ARTHROCENTESIS 2019-01-18 15:30:00 Patel Peoples ethodist ASPIR&/INJ MAJOR JT/BURSA W/O US OR ARTHROCENTESIS 2019-01-11 15:40:00 Patel Peoples ethodist ASPIR&/INJ MAJOR JT/BURSA W/O US XR KNEE 4+ VW RIGHT 2018-12-28 19:16:40 Patel Peoples OR ARTHROCENTESIS 2018-12-28 19:10:00 Patel Peoples ethodist ASPIR&/INJ MAJOR JT/BURSA W/O US Plan of Care Planned Activity Planned Date Details Comments Source Future Scheduled Test 2019-12-31 INFLUENZA VACCINE Shawn Rodriguez 00:00:00 [code = INFLUENZA VACCINE] Future Scheduled Test 2011 65+ PNEUMOCOCCAL Ho laila Rodriguez 00:00:00 VACCINE (1 of 2 - PCV13) [code = 65+ PNEUMOCOCCAL VACCINE (1 of 2 - PCV13)] Future Scheduled Test 1996 COLONOSCOPY SCREENING Javed Rodriguez 00:00:00 [code = COLONOSCOPY SCREENING] Future Scheduled Test 1996 SHINGLES VACCINES H jasper Rodriguez 00:00:00 (#1) [code = SHINGLES VACCINES (#1)] Future Appointment 2019-10-27 Vernell Barrios MD, Bhavesh Rodriguez 13:25:00 [id number] [facility]; [address], [place] [address] Future Appointment 2019-10-27 Vernell Barrios MD, Bhavesh Rodriguez 13:25:00 [facility]; [address], [place] [address] Encounters Start End Encounter Admission Attending Care Care Encounter Source Date/Time Date/Time Type Type Clinicians Facility Department ID 2019-09-14 2019-09-14 Emergency [facility] [id number] 15:32:28 17:49:00 Aman Heredia [id number] [place] [id number] [place] [id number] 2019-08-23 2019-08-23 Outpatient EDWARD TEJADA [facility] [id number] 00:00:00 00:00:[address] 2019-08-23 2019-08-23 Outpatient EDWARD TEJADA [facility] [id number] 00:00:00 00:00:[address] 2019-08-23 2019-08-23 Outpatient EDWARD TEJADA [facility] [id number] 00:00:00 00:00:[address] 2019-08-23 2019-08-23 Outpatient EDWARD TEJADA [facility] [id number] 00:00:00 00:00:[address] 2019-08-02 2019-08-02 Outpatient DENIS [facility] [id number] 00:00:00 00:00:00 VERNELL [address] 2019-08-02 2019-08-02 Outpatient WOALLAN [facility] [id number] 00:00:00 00:00:00 KI, [address] Results Test Test Test Comments Results Result Source Description Time Comments U/S, RENAL, 2019-09- Reason for FINAL REPORT PATIENT COMPLETE 11 exam:->acute ID: [id number] U/S, 07:10:00 renal RENAL, COMPLETE failureShould CLINICAL INDICATION: this be performed acute renal failure at the COMPARISON: None bedside?->Yes Note: Imaging made available for interpretation October 10, 2019 TECHNIQUE: The kidneys and urinary bladder were evaluated using real time ramos scale and color Doppler sonography. FINDINGS:Right kidney: Size: 10.6 x 6.1 x 6.7 cm. Parenchyma: Normal echogenicity. No cysts. No stones. Hydronephrosis: None. Left kidney: Size: 9.3 x 4.6 x 4.8 cm. Parenchyma: Normal echogenicity. No cysts. No stones. Hydronephrosis: None. Renal Vasculature: Doppler interrogation reveals preserved vascular flow in the main renal arteries and veins bilaterally. Urinary bladder: Unremarkable. Ureteric jets were demonstrated bilaterally. Additional findings: Incidental note of small volume ascites superior to the bladder. IMPRESSION: Unremarkable renal ultrasound. Signed: JR Ruby Robert MDReport Verified Date/Time: 10/10/2019 07:10:26 Reading Location: [facility] C013 Neuro Reading Room Thoracic [facility], Circle Spine Wo [address] Contrast 20:59:02 Incoming - 08/23/2019 4:02 PM CDTEXAMINATION: CT THORACIC SPINE WO CONTRASTCLINICAL HISTORY: M54.5 Low back pain, G89.29 Other chronic pain, concern for thoracic VCFCOMPARISON: Concurrent lumbar spinal CT on 08/23/2019.TECHNIQUE: Noncontrast thoracic spinal CT with multiplanar reconstruction performed using radiation dose reduction techniques. Technical factors are evaluated and adjusted to ensure appropriate moderation of exposure. Automated dose management technology is applied to adjust radiation exposure while achieving a diagnostic quality image.FINDINGS:There are 12 rib-bearing thoracic-type vertebrae. Mildly exaggerated thoracic kyphosis with minimal grade 1 (1-2 mm) anterolisthesis of T2 on T3, T3 and T4, T4 on T5, and T5 on T6. Multiple chronic-appearing Schmorl's nodes along mid-inferior thoracic levels. No evidence of acute fracture. No suspicious osteolytic or osteoblastic lesion. All thoracic intervertebral disc spaces are moderate-severely narrowed. Mild-moderately prominent bridging right anterolateral endplate osteophytes along mid-inferior thoracic levels. Dorsal spondylosis results in moderate-severe right T1-2 and right more than left T2-3 neural foraminal stenoses, and mild-moderate bilateral T3-4 and T4-5 neural foraminal stenoses. Mild neural foraminal stenoses at other lumbar levels. Probable mild spinal canal stenosis at T5-6.There is advanced cervical spondylosis with evidence of moderate-severe spinal canal stenosis at T5-6 and to lesser degree at T6-7 from endplate osteophytes, and multilevel moderate-severe neural foraminal stenoses. Right internal jugular dual-lumen catheter extends low in the right atrium. Visualized paraspinal soft tissues are unremarkable. Extensive calcified atherosclerosis along left coronary arteries along the arch and descending thoracic aorta. There is platelike atelectasis along bilateral lung bases.IMPRESSION:1. No acute thoracic spinal abnormality.2. Thoracic spondylosis with multilevel variable neural foraminal stenoses including moderate-severe right T1-2 and right more than left T2-3 neural foraminal stenoses. Probable mild spinal canal stenosis at T5-6.3. Advanced cervical spondylosis with evidence of moderate-severe spinal canal stenosis at T5-6 and to lesser degree T6-7 and multilevel moderate-severe neural foraminal stenoses, which can be further evaluated by dedicated cervical imaging.[id number] X[address] Lumbar Spine 2019-07[facility] Interface, Tenisha mensah Wo Contrast 24 Radiology Results Method ist 20:43:03 - 08/23/2019 3:46 PM CDTEXAMINATION: CT LUMBAR SPINE WO CONTRASTCLINICAL HISTORY: M54.5 Low back pain, G89.29 Other chronic pain, acute mid lumbar pain concern for VCFCOMPARISON: Same day CT thoracic i and lumbar radiographs. MR abdomen 09/25/2015TECHNIQUE: Noncontrast lumbar spinal CT with multiplanar reconstruction performed using radiation dose reduction techniques. Technical factors are evaluated and adjusted to ensure appropriate moderation of exposure. Automated dose management technology is applied to adjust radiation exposure while achieving a diagnostic quality image.FINDINGS:There are 6 nonrib-bearing lumbar-type vertebral bodies with 12 thoracic rib-bearing vertebrae representing transitional vertebrae and lumbarization of S1. For numbering purposes the lowest intervertebral disc space will be demarcated as S1-[id number] vertebral body heights are preserved. Minimal anterolisthesis of S1 on S2 and minimal retrolisthesis of L3 on L4. Body heights are relatively preserved. Multilevel moderate to severe degenerative disc disease most prominent at L3-L4 and L5-S1 is thinning of disc space height loss, endplate sclerosis/cystic changes and osteophytosis. Multilevel facet hypertrophy is also present most prominent within the lumbosacral region. There is multilevel spinal canal stenosis, at least moderate to severe at L5-S1 and moderate at L4-L5. Multilevel less prominent spinal canal stenosis. There is multilevel neural foraminal narrowing, at least mild at L5-S1.Prominent paraspinal muscle fatty infiltration. No paravertebral hematoma formation. Dense calcific plaques throughout the abdominal aorta which is nonaneurysmal. Left kidney is atrophic in appearance with scattered hypodense/dense structures that may represent simple and hemorrhagic/proteina ceous cysts. Suspected layering biliary sludge within the partially visualized gallbladder without distention. Lower back dependent subcutaneous edema. IMPRESSION:No CT evidence for acute lumbar spine osseous abnormality.Multilev el moderate to severe lumbar degenerative disc disease causing this at least moderate severe spinal canal stenosis at L5-S1. Transitional vertebrae suspected as described above.[facility]-[id number] ECG Pre/Post Op 2019-08-02 23:06:17 Test Item Value Reference Range Interpretation Comme nts Ventricular rate (test code = 253) 80 Atrial rate (test code = 255) 71 QRSD interval (test code = 260) 96 QT interval (test code = 264) 388 QTC interval (test code = 265) 447 QRS axis 1 (test code = 268) 167 T wave axis (test code = 270) 24 EKG impression (test code = 273) Atrial fibrillation-Indeterminate axis-Low voltage QRS-Abnormal ECG-No previous ECGs available- Circle MethodistHemoglobin [id number] 22:55:38 Test Item Value Reference Range Interpretation Comments Hemoglobin A1C (test 5.2 % 4-5.6 HbA1c c utoffs for code = 75068-7) diagnosing d iabetes:4.0% - 5.6% = normal 5.7% - 6.4% = increase d risk for diabetes (prediabetes)9> =6.5% = lzfkplnr6Zetil for glycemic contro l (ADA 2016)< 7.0% Ta rget for non stefania lts with diabetes. More or less stringent targe ts may be appropriate for individual samia ents. <7.5% Target for Children and ad olescents with type 1 nettie neida. Burt MethodistType and [id number] 22:43:00 Test Item Value Reference Range Interpretation Comments ABO grouping (test code = 883-9) O Rh type (test code = 31939-6) POS Antibody screen (gel) (test code = NEG 890-4) Burt MethodistXR Chest 2 [id number] 22:08:24Hm Interface, Radiology Results 08/02/2019 4:11 PM CSTEXAMINATION: XR CHEST 2 VWCLINICAL HISTORY: Z01.818 Encounter for other preprocedural examination, Pre OP TestingCOMPARISON: 09/21/2015 IMPRESSION:Right jugular dialysis catheter is in place extending to right atrium. There is stable jhsc-oc-mrunbxbb cardiomegaly. Pulmonary vasculature is normal. There is aortic calcification tortuosity. No focal infiltrate, effusion or pneumothorax seen. Visualized osseous structures are intact. [facility]-[id number] MethodistCBC with platelet and differential 2019-08-02 21:37:15 Test Item Value Reference Range Interpretation Comments WBC (test code = 90434-3) 15.8 4.5- 11.0 k/uL H RBC (test code = 66363-0) 4.24 m/uL 4.4-6 L HGB (test code = 718-7) 12.5 g/dL 14-18 L HCT (test code = 4544-3) 41.1 % 41-51 MCV (test code = 787-2) 96.9 fL 82-100 MCH (test code = 785-6) 29.5 pg 27-34 MCHC (test code = 786-4) 30.4 g/dL 31-37 L RDW - SD (test code = 27603-2) 53.9 fL 37-55 MPV (test code = 16125-0) 10.1 fL 6.9-11 Platelet count (test code = 367 K/uL 150-400 50251-0) Nucleated RBC (test code = 98680-4) 0.00 /100 WBC Neutrophils (test code = 00034-3) 80.0 % 39-69 H Lymphocytes (test code = 23220-8) 6.3 % 25-45 L Monocytes (test code = 03196-1) 8.3 % 0-10 Eosinophils (test code = 23507-7) 1.7 % 0-5 Basophils (test code = 76347-4) 1.2 % 0-1 H Immature granulocytes (test code = 2.5 % 0-1 H 41287-5) Lab Interpretation (test code = Abnormal 24622-5) Circle MethodistLarge Joint Arthrocentesis: knee, R [id number] 15:40:00 Patel Peoples MD 01/25/2019 4:57 PMLarge Joint Arthrocentesis: knee, R kneeConsent given by:patientSupporting DocumentationIndications: pain Procedure DetailsUltrasound guided: no Platelet Rich Plasma Used: no PRP Used Location: knee - R knee Right side:Needle size: 22 GApproach: anteriorRight knee medications administered: 2 mL sodium hyaluronate (viscosup) 30 mg/2 mLPatient tolerance: patient tolerated the procedure well with no immediate complications Circle MethodistLarge Joint Arthrocentesis: knee, R [id number] 15:30:00 Patel Peoples MD 01/18/2019 12:25 PMLarge Joint Arthrocentesis: knee, R kneeConsent given by:patientSupporting DocumentationIndications: pain Procedure DetailsUltrasound guided: no Platelet Rich Plasma Used: no PRP Used Location: knee - R knee Right side:Needle size: 22 GApproach: anteriorRight knee medications administered: 2 mL sodium hyaluronate (viscosup) 30 mg/2 mLPatient tolerance: patient tolerated the procedure well with no immediate complications Circle [facility]Large Joint Arthrocentesis: knee, L [id number] 15:30:00 Patel Peoples MD 01/18/2019 12:25 PMLarge Joint Arthrocentesis: knee, L kneeConsent given by:patientSupporting DocumentationIndications: pain Procedure DetailsUltrasound guided: no Platelet Rich Plasma Used: no PRP Used Location: knee - L knee Left side:Needle size: 25 GApproach: anteriorLeft knee medications administered: 1 mL lidocaine 10 mg/mL (1 %); 6 mg betamethasone acetate & sodium phosphate 6 mg/mLPatient tolerance: patient tolerated the procedure well with no immediate complicationsCircle MethodistLarge Joint Arthrocentesis: knee, R [id number] 15:40:00Patel Peoples MD 01/11/2019 11:52 AMLarge Joint Arthrocentesis: knee, R kneeConsent given by:patientSupporting DocumentationIndications: pain Procedure DetailsUltrasound guided: no Platelet Rich Plasma Used: no PRP Used Location: knee - R knee Right side:Needle size: 22 GApproach: anteriorRight knee medications administered: 2 mL sodium hyaluronate (viscosup) 30 mg/2 mLPatient tolerance: patient tolerated the procedure well with no immediate complicationsHoumelrosewakefield hospital MethodistLarge Joint Arthrocentesis: knee, R [id number] 19:10:00Patel Peoples MD 12/28/2018 4:44 PMLarge Joint Arthrocentesis: knee, R kneeConsent given by:patientTimeout: Immediately prior to procedure a time out was called to verify the correct patient, p rocedure, equipment, technical support agent and site/side marked as required Supporting DocumentationIndications: pain Procedure DetailsUltrasound guided: no Platelet Rich Plasma Used: no PRP Used Location: knee - R knee Right side:Needle size: 25 GApproach: anteriorRight knee medications administered: 1 mL lidocaine 10 mg/mL (1 %); 6 mg betamethasone acetate & sodium phosphate 6 mg/mLPatient tolerance:patient tolerated the procedure well with no immediate complications Circle MethodistPOCT-GLUCOSE [id number] 08:36:00 Test Item Value Reference Range Interpretation Comments POC-GLUCOSE METER 87 mg/dL 70-[address] [facility] 6720 (BEAKER) (test code = ELAYNE Bae[facility] [address] 1538) [id number] 06:44:00 Test Item Value Reference Range Interpretation Comments MAGNESIUM (BEAKER) 1.9 mg/dL 1.6-2.6 Specimen slightly (test code = 627) hemolyzed BASIC METABOLIC [id number] 06:44:00 Test Item Value Reference Range Interpretation Comments SODIUM (BEAKER) 140 meq/L 136-145 (test code = 381) POTASSIUM (BEAKER) 4.3 meq/L 3.5-5.1 Specimen slightly (test code = 379) hemolyzed CHLORIDE (BEAKER) 106 meq/L 98-107 (test code = 382) CO2 (BEAKER) (test 26 meq/L 22-29 code = 355) BLOOD UREA NITROGEN 37 mg/dL 7-21 H (BEAKER) (test code = 354) CREATININE (BEAKER) 2.17 mg/dL 0.57-1.25 H Specimen slightly (test code = 358) hemolyzed GLUCOSE RANDOM 96 mg/dL 70-105 (BEAKER) (test code = 652) CALCIUM (BEAKER) 8.2 mg/dL 8.4-10.2 L (test code = 697) EGFR (BEAKER) (test 30 mL/min/1.73 ESTIMA AIDE GFR IS code = 1092) sq m NOT ACCURATE CREATININE CLEARANCE IN PREDICTING GLOMERULAR FILTRATION RATE . ESTIMATED GFR I S NOT APPLICABLE FOR DIALYSIS PATIEN TS. CBC W/PLT COUNT & AUTO [id number] 06:38:00 Test Item Value Reference Range Interpretation Comments WHITE BLOOD CELL COUNT (BEAKER) 12.5 K/ L 3.5-10.5 H (test code = 775) RED BLOOD CELL COUNT (BEAKER) 3.15 M/ L 4.63-6.08 L (test code = 761) HEMOGLOBIN (BEAKER) (test code = 8.6 GM/DL 13.7-17.5 L 410) HEMATOCRIT (BEAKER) (test code = 28.6 % 40.1-51.0 L 411) MEAN CORPUSCULAR VOLUME (BEAKER) 90.8 fL 79.0-92.2 (test code = 753) MEAN CORPUSCULAR HEMOGLOBIN 27.3 pg 25.7-32.2 (BEAKER) (test code = 751) MEAN CORPUSCULAR HEMOGLOBIN CONC 30.1 GM/DL 32.3-36.5 L (BEAKER) (test code = 752) RED CELL DISTRIBUTION WIDTH 24.3 % 11.6-14.4 H (BEAKER) (test code = 412) PLATELET COUNT (BEAKER) (test 427 K/CU MM 150-450 code = 756) MEAN PLATELET VOLUME (BEAKER) 9.5 fL 9.4-12.4 (test code = 754) NUCLEATED RED BLOOD CELLS 0 /100 WBC 0-0 (BEAKER) (test code = 413) NEUTROPHILS RELATIVE PERCENT 73 % (BEAKER) (test code = 429) LYMPHOCYTES RELATIVE PERCENT 8 % (BEAKER) (test code = 430) MONOCYTES RELATIVE PERCENT 8 % (BEAKER) (test code = 431) EOSINOPHILS RELATIVE PERCENT 8 % (BEAKER) (test code = 432) BASOPHILS RELATIVE PERCENT 1 % (BEAKER) (test code = 437) NEUTROPHILS ABSOLUTE COUNT 9.15 K/ L 1.78-5.38 H (BEAKER) (test code = 670) LYMPHOCYTES ABSOLUTE COUNT 1.03 K/ L 1.32-3.57 L (BEAKER) (test code = 414) MONOCYTES ABSOLUTE COUNT (BEAKER) 0.98 K/ L 0.30-0.82 H (test code = 415) EOSINOPHILS ABSOLUTE COUNT 1.02 K/ L 0.04-0.54 H (BEAKER) (test code = 416) BASOPHILS ABSOLUTE COUNT (BEAKER) 0.07 K/ L 0.01-0.08 (test code = 417) IMMATURE GRANULOCYTES-RELATIVE 2 % 0-1 H PERCENT (BEAKER) (test code = 2801) POCT-GLUCOSE [id number] 21:29:00 Test Item Value Reference Range Interpretation Comments POC-GLUCOSE METER 106 mg/dL 70-[address] [facility] 67 (BEAKER) (test code = E[place] 1538) [id number] POCT-GLUCOSE [id number] 17:30:00 Test Item Value Reference Range Interpretation Comments POC-GLUCOSE METER 100 mg/dL 70-[address] [facility] 6720 [facility] (test code = [place] 1538) [id number] CALCIUM, [id number] 05:57:00 Test Item Value Reference Range Interpretation Comments CALCIUM IONIZED (BEAKER) (test 1.02 mmol/L 1.12-1.27 L code = 698) PH, BLOOD (BEAKER) (test code = 7.48 1810) [id number] 05:31:00 Test Item Value Reference Range Interpretation Comments PHOSPHORUS (BEAKER) (test code = 3.2 mg/dL 2.3-4.7 604) [id number] 05:31:00 Test Item Value Reference Range Interpretation Comments MAGNESIUM (BEAKER) (test code = 1.7 mg/dL 1.6-2.6 627) COMPREHENSIVE METABOLIC [id number] 05:31:00 Test Item Value Reference Range Interpretation Comments TOTAL PROTEIN 5.1 gm/dL 6.0-8.3 L (BEAKER) (test code = 770) ALBUMIN (BEAKER) 2.9 g/dL 3.5-5.0 L (test code = 1145) ALKALINE PHOSPHATASE 286 U/L 40-150 H (BEAKER) (test code = 346) BILIRUBIN TOTAL 1.1 mg/dL 0.2-1.2 (BEAKER) (test code = 377) SODIUM (BEAKER) (test 141 meq/L 136-145 code = 381) POTASSIUM (BEAKER) 3.6 meq/L 3.5-5.1 (test code = 379) CHLORIDE (BEAKER) 106 meq/L 98-107 (test code = 382) CO2 (BEAKER) (test 27 meq/L 22-29 code = 355) BLOOD UREA NITROGEN 30 mg/dL 7-21 H (BEAKER) (test code = 354) CREATININE (BEAKER) 1.88 mg/dL 0.57-1.25 H (test code = 358) GLUCOSE RANDOM 107 mg/dL 70-105 H (BEAKER) (test code = 652) CALCIUM (BEAKER) 8.2 mg/dL 8.4-10.2 L (test code = 697) AST (SGOT) (BEAKER) 44 U/L 5-34 H (test code = 353) ALT (SGPT) (BEAKER) 46 U/L 6-55 (test code = 347) EGFR (BEAKER) (test 35 mL/min/1.73 ESTIMA AIDE GFR IS code = 1092) sq m NOT ACCURATE CREATININE CLEARANCE IN PREDICTING GLOMERULAR FILTRATION RATE . ESTIMATED GFR I S NOT APPLICABLE FOR DIALYSIS PATIEN TS. CBC W/PLT COUNT & AUTO [id number] 05:18:00 Test Item Value Reference Range Interpretation Comments WHITE BLOOD CELL COUNT (BEAKER) 15.9 K/ L 3.5-10.5 H (test code = 775) RED BLOOD CELL COUNT (BEAKER) 3.18 M/ L 4.63-6.08 L (test code = 761) HEMOGLOBIN (BEAKER) (test code = 8.6 GM/DL 13.7-17.5 L 410) HEMATOCRIT (BEAKER) (test code = 28.2 % 40.1-51.0 L 411) MEAN CORPUSCULAR VOLUME (BEAKER) 88.7 fL 79.0-92.2 (test code = 753) MEAN CORPUSCULAR HEMOGLOBIN 27.0 pg 25.7-32.2 (BEAKER) (test code = 751) MEAN CORPUSCULAR HEMOGLOBIN CONC 30.5 GM/DL 32.3-36.5 L (BEAKER) (test code = 752) RED CELL DISTRIBUTION WIDTH 24.2 % 11.6-14.4 H (BEAKER) (test code = 412) PLATELET COUNT (BEAKER) (test 407 K/CU MM 150-450 code = 756) MEAN PLATELET VOLUME (BEAKER) 9.7 fL 9.4-12.4 (test code = 754) NUCLEATED RED BLOOD CELLS 0 /100 WBC 0-0 (BEAKER) (test code = 413) NEUTROPHILS RELATIVE PERCENT 80 % (BEAKER) (test code = 429) LYMPHOCYTES RELATIVE PERCENT 7 % (BEAKER) (test code = 430) MONOCYTES RELATIVE PERCENT 9 % (BEAKER) (test code = 431) EOSINOPHILS RELATIVE PERCENT 3 % (BEAKER) (test code = 432) BASOPHILS RELATIVE PERCENT 0 % (BEAKER) (test code = 437) NEUTROPHILS ABSOLUTE COUNT 12.74 K/ L 1.78-5.38 H (BEAKER) (test code = 670) LYMPHOCYTES ABSOLUTE COUNT 1.09 K/ L 1.32-3.57 L (BEAKER) (test code = 414) MONOCYTES ABSOLUTE COUNT (BEAKER) 1.38 K/ L 0.30-0.82 H (test code = 415) EOSINOPHILS ABSOLUTE COUNT 0.49 K/ L 0.04-0.54 (BEAKER) (test code = 416) BASOPHILS ABSOLUTE COUNT (BEAKER) 0.04 K/ L 0.01-0.08 (test code = 417) IMMATURE GRANULOCYTES-RELATIVE 1 % 0-1 PERCENT (BEAKER) (test code = 2801) HEPATITIS B [id number] 20:06:00 Test Item Value Reference Range Interpretation Comments HEPATITIS B CORE TOTAL ANTIBODY Nonreactive Nonreactive (BEAKER) (test code = 497) HEPATITIS B SURFACE ANTIBODY < mIU/mL <8.0 (BEAKER) (test code = 647) HEPATITIS B SURFACE ANTIGEN (2) Nonreactive Nonreactive (BEAKER) (test code = 2585) POCT-GLUCOSE [id number] 12:45:00 Test Item Value Reference Range Interpretation Comments POC-GLUCOSE METER 142 mg/dL 70-[address] [facility] [facility] (test code = [facility] 1538) [id number] POCT-GLUCOSE [id number] 07:50:00 Test Item Value Reference Range Interpretation Comments POC-GLUCOSE METER 106 mg/dL 70-110 TESTED AT [place] [address] ([facility]) (test code = [facility] 1538) [id number] COMPREHENSIVE METABOLIC [id number] 04:41:00 Test Item Value Reference Range Interpretation Comments TOTAL PROTEIN 5.1 gm/dL 6.0-8.3 L (BEAKER) (test code = 770) ALBUMIN (BEAKER) 2.9 g/dL 3.5-5.0 L (test code = 1145) ALKALINE PHOSPHATASE 296 U/L 40-150 H (BEAKER) (test code = 346) BILIRUBIN TOTAL 1.4 mg/dL 0.2-1.2 H (BEAKER) (test code = 377) SODIUM (BEAKER) (test 135 meq/L 136-145 L code = 381) POTASSIUM (BEAKER) 4.8 meq/L 3.5-5.1 (test code = 379) CHLORIDE (BEAKER) 103 meq/L 98-107 (test code = 382) CO2 (BEAKER) (test 22 meq/L 22-29 code = 355) BLOOD UREA NITROGEN 61 mg/dL 7-21 H (BEAKER) (test code = 354) CREATININE (BEAKER) 2.93 mg/dL 0.57-1.25 H (test code = 358) GLUCOSE RANDOM 122 mg/dL 70-105 H (BEAKER) (test code = 652) CALCIUM (BEAKER) 7.9 mg/dL 8.4-10.2 L (test code = 697) AST (SGOT) (BEAKER) 61 U/L 5-34 H (test code = 353) ALT (SGPT) (BEAKER) 52 U/L 6-55 (test code = 347) EGFR (BEAKER) (test 21 mL/min/1.73 ESTIMA AIDE GFR IS code = 1092) sq m NOT ACCURATE CREATININE CLEARANCE IN PREDICTING GLOMERULAR FILTRATION RATE . ESTIMATED GFR I S NOT APPLICABLE FOR DIALYSIS PATIEN TS. [id number] 04:40:00 Test Item Value Reference Range Interpretation Comments PHOSPHORUS (BEAKER) (test code = 4.7 mg/dL 2.3-4.7 604) [id number] 04:40:00 Test Item Value Reference Range Interpretation Comments MAGNESIUM (BEAKER) (test code = 2.0 mg/dL 1.6-2.6 627) CBC W/PLT COUNT & AUTO [id number] 04:08:00 Test Item Value Reference Range Interpretation Comments WHITE BLOOD CELL COUNT (BEAKER) 18.6 K/ L 3.5-10.5 H (test code = 775) RED BLOOD CELL COUNT (BEAKER) 3.15 M/ L 4.63-6.08 L (test code = 761) HEMOGLOBIN (BEAKER) (test code = 8.6 GM/DL 13.7-17.5 L 410) HEMATOCRIT (BEAKER) (test code = 27.8 % 40.1-51.0 L 411) MEAN CORPUSCULAR VOLUME (BEAKER) 88.3 fL 79.0-92.2 (test code = 753) MEAN CORPUSCULAR HEMOGLOBIN 27.3 pg 25.7-32.2 (BEAKER) (test code = 751) MEAN CORPUSCULAR HEMOGLOBIN CONC 30.9 GM/DL 32.3-36.5 L (BEAKER) (test code = 752) RED CELL DISTRIBUTION WIDTH 24.9 % 11.6-14.4 H (BEAKER) (test code = 412) PLATELET COUNT (BEAKER) (test 376 K/CU MM 150-450 code = 756) MEAN PLATELET VOLUME (BEAKER) 10.1 fL 9.4-12.4 (test code = 754) NUCLEATED RED BLOOD CELLS 0 /100 WBC 0-0 (BEAKER) (test code = 413) NEUTROPHILS RELATIVE PERCENT 85 % (BEAKER) (test code = 429) LYMPHOCYTES RELATIVE PERCENT 5 % (BEAKER) (test code = 430) MONOCYTES RELATIVE PERCENT 7 % (BEAKER) (test code = 431) EOSINOPHILS RELATIVE PERCENT 1 % (BEAKER) (test code = 432) BASOPHILS RELATIVE PERCENT 0 % (BEAKER) (test code = 437) NEUTROPHILS ABSOLUTE COUNT 15.80 K/ L 1.78-5.38 H (BEAKER) (test code = 670) LYMPHOCYTES ABSOLUTE COUNT 1.00 K/ L 1.32-3.57 L (BEAKER) (test code = 414) MONOCYTES ABSOLUTE COUNT (BEAKER) 1.35 K/ L 0.30-0.82 H (test code = 415) EOSINOPHILS ABSOLUTE COUNT 0.20 K/ L 0.04-0.54 (BEAKER) (test code = 416) BASOPHILS ABSOLUTE COUNT (BEAKER) 0.02 K/ L 0.01-0.08 (test code = 417) IMMATURE GRANULOCYTES-RELATIVE 1 % 0-1 PERCENT (BEAKER) (test code = 2801) CALCIUM, [id number] 03:32:00 Test Item Value Reference Range Interpretation Comments CALCIUM IONIZED (BEAKER) (test 1.00 mmol/L 1.12-1.27 L code = 698) PH, BLOOD (BEAKER) (test code = 7.51 1810) POCT-GLUCOSE [id number] 23:40:00 Test Item Value Reference Range Interpretation Comments POC-GLUCOSE METER 99 mg/dL 70-[address] [facility] 6720 (BEAKER) (test code = [facility] [address] 1538) COMPREHENSIVE METABOLIC [id number] 05:39:00 Test Item Value Reference Range Interpretation Comments TOTAL PROTEIN 5.3 gm/dL 6.0-8.3 L (BEAKER) (test code = 770) ALBUMIN (BEAKER) 2.9 g/dL 3.5-5.0 L (test code = 1145) ALKALINE PHOSPHATASE 296 U/L 40-150 H (BEAKER) (test code = 346) BILIRUBIN TOTAL 1.4 mg/dL 0.2-1.2 H (BEAKER) (test code = 377) SODIUM (BEAKER) (test 137 meq/L 136-145 code = 381) POTASSIUM (BEAKER) 4.3 meq/L 3.5-5.1 (test code = 379) CHLORIDE (BEAKER) 103 meq/L 98-107 (test code = 382) CO2 (BEAKER) (test 24 meq/L 22-29 code = 355) BLOOD UREA NITROGEN 47 mg/dL 7-21 H (BEAKER) (test code = 354) CREATININE (BEAKER) 2.46 mg/dL 0.57-1.25 H (test code = 358) GLUCOSE RANDOM 123 mg/dL 70-105 H (BEAKER) (test code = 652) CALCIUM (BEAKER) 8.3 mg/dL 8.4-10.2 L (test code = 697) AST (SGOT) (BEAKER) 87 U/L 5-34 H (test code = 353) ALT (SGPT) (BEAKER) 56 U/L 6-55 H (test code = 347) EGFR (BEAKER) (test 26 mL/min/1.73 ESTIMA AIDE GFR IS code = 1092) sq m NOT ACCURATE CREATININE CLEARANCE IN PREDICTING GLOMERULAR FILTRATION RATE . ESTIMATED GFR I S NOT APPLICABLE FOR DIALYSIS PATIEN TS. [id number] 05:36:00 Test Item Value Reference Range Interpretation Comments PHOSPHORUS (BEAKER) (test code = 3.8 mg/dL 2.3-4.7 604) [id number] 05:36:00 Test Item Value Reference Range Interpretation Comments MAGNESIUM (BEAKER) (test code = 2.2 mg/dL 1.6-2.6 627) CBC W/PLT COUNT & AUTO [id number] 05:10:00 Test Item Value Reference Range Interpretation Comments WHITE BLOOD CELL COUNT (BEAKER) 17.1 K/ L 3.5-10.5 H (test code = 775) RED BLOOD CELL COUNT (BEAKER) 3.23 M/ L 4.63-6.08 L (test code = 761) HEMOGLOBIN (BEAKER) (test code = 8.7 GM/DL 13.7-17.5 L 410) HEMATOCRIT (BEAKER) (test code = 28.6 % 40.1-51.0 L 411) MEAN CORPUSCULAR VOLUME (BEAKER) 88.5 fL 79.0-92.2 (test code = 753) MEAN CORPUSCULAR HEMOGLOBIN 26.9 pg 25.7-32.2 (BEAKER) (test code = 751) MEAN CORPUSCULAR HEMOGLOBIN CONC 30.4 GM/DL 32.3-36.5 L (BEAKER) (test code = 752) RED CELL DISTRIBUTION WIDTH 24.4 % 11.6-14.4 H (BEAKER) (test code = 412) PLATELET COUNT (BEAKER) (test 322 K/CU MM 150-450 code = 756) MEAN PLATELET VOLUME (BEAKER) 10.1 fL 9.4-12.4 (test code = 754) NUCLEATED RED BLOOD CELLS 0 /100 WBC 0-0 (BEAKER) (test code = 413) NEUTROPHILS RELATIVE PERCENT 84 % (BEAKER) (test code = 429) LYMPHOCYTES RELATIVE PERCENT 6 % (BEAKER) (test code = 430) MONOCYTES RELATIVE PERCENT 7 % (BEAKER) (test code = 431) EOSINOPHILS RELATIVE PERCENT 1 % (BEAKER) (test code = 432) BASOPHILS RELATIVE PERCENT 0 % (BEAKER) (test code = 437) NEUTROPHILS ABSOLUTE COUNT 14.45 K/ L 1.78-5.38 H (BEAKER) (test code = 670) LYMPHOCYTES ABSOLUTE COUNT 1.01 K/ L 1.32-3.57 L (BEAKER) (test code = 414) MONOCYTES ABSOLUTE COUNT (BEAKER) 1.21 K/ L 0.30-0.82 H (test code = 415) EOSINOPHILS ABSOLUTE COUNT 0.09 K/ L 0.04-0.54 (BEAKER) (test code = 416) BASOPHILS ABSOLUTE COUNT (BEAKER) 0.03 K/ L 0.01-0.08 (test code = 417) IMMATURE GRANULOCYTES-RELATIVE 2 % 0-1 H PERCENT (BEAKER) (test code = 2801) CALCIUM, [id number] 05:09:00 Test Item Value Reference Range Interpretation Comments CALCIUM IONIZED (BEAKER) (test 1.03 mmol/L 1.12-1.27 L code = 698) PH, BLOOD (BEAKER) (test code = 7.43 1810) POCT-GLUCOSE [id number] 22:16:00 Test Item Value Reference Range Interpretation Comments POC-GLUCOSE METER 135 mg/dL 70-[address] [facility] 6720 (BEAKER) (test code = [place] 1538) [id number] POCT-GLUCOSE [id number] 11:57:00 Test Item Value Reference Range Interpretation Comments POC-GLUCOSE METER 220 mg/dL 70-[address] [facility] 6720 (BEAKER) (test code = [place] 1538) [id number] POCT-GLUCOSE [id number] 08:20:00 Test Item Value Reference Range Interpretation Comments POC-GLUCOSE METER 114 mg/dL 70-[address] [facility] 6720 (BEAKER) (test code = [place] 1538) [id number] 05:07:00 Test Item Value Reference Range Interpretation Comments FERRITIN (BEAKER) (test code = 361) 162 ng/mL 5-275 IRON, TIBC, % SAT. (WITHOUT FERRITIN)[id number] 04:54:00 Test Item Value Reference Range Interpretation Comments IRON (BEAKER) (test code = 547) 33.0 ug/dL 40.0-160.0 L TOTAL IRON BINDING CAPACITY 161 ug/dL 250-450 L (BEAKER) (test code = 769) IRON % SATURATION (2) (BEAKER) 20 % 20-55 (test code = 2590) [id number] 04:47:00 Test Item Value Reference Range Interpretation Comments PHOSPHORUS (BEAKER) (test code = 3.4 mg/dL 2.3-4.7 604) [id number] 04:47:00 Test Item Value Reference Range Interpretation Comments MAGNESIUM (BEAKER) (test code = 1.7 mg/dL 1.6-2.6 627) COMPREHENSIVE METABOLIC [id number] 04:47:00 Test Item Value Reference Range Interpretation Comments TOTAL PROTEIN 4.8 gm/dL 6.0-8.3 L (BEAKER) (test code = 770) ALBUMIN (BEAKER) 2.6 g/dL 3.5-5.0 L (test code = 1145) ALKALINE PHOSPHATASE 255 U/L 40-150 H (BEAKER) (test code = 346) BILIRUBIN TOTAL 1.6 mg/dL 0.2-1.2 H (BEAKER) (test code = 377) SODIUM (BEAKER) (test 136 meq/L 136-145 code = 381) POTASSIUM (BEAKER) 3.4 meq/L 3.5-5.1 L (test code = 379) CHLORIDE (BEAKER) 102 meq/L 98-107 (test code = 382) CO2 (BEAKER) (test 27 meq/L 22-29 code = 355) BLOOD UREA NITROGEN 31 mg/dL 7-21 H (BEAKER) (test code = 354) CREATININE (BEAKER) 1.92 mg/dL 0.57-1.25 H (test code = 358) GLUCOSE RANDOM 112 mg/dL 70-105 H (BEAKER) (test code = 652) CALCIUM (BEAKER) 8.1 mg/dL 8.4-10.2 L (test code = 697) AST (SGOT) (BEAKER) 108 U/L 5-34 H (test code = 353) ALT (SGPT) (BEAKER) 44 U/L 6-55 (test code = 347) EGFR (BEAKER) (test 35 mL/min/1.73 ESTIMA AIDE GFR IS code = 1092) sq m NOT ACCURATE CREATININE CLEARANCE IN PREDICTING GLOMERULAR FILTRATION RATE . ESTIMATED GFR I S NOT APPLICABLE FOR DIALYSIS PATIEN TS. CALCIUM, [id number] 04:40:00 Test Item Value Reference Range Interpretation Comments CALCIUM IONIZED (BEAKER) (test 1.10 mmol/L 1.12-1.27 L code = 698) PH, BLOOD (BEAKER) (test code = 7.44 1810) RETICULOCYTE [id number] 04:28:00 Test Item Value Reference Range Interpretation Comments RETICULOCYTE COUNT PCT (BEAKER) (test 3.5 % 0.5-1.8 H code = 575) CBC W/PLT COUNT & AUTO [id number] 04:27:00 Test Item Value Reference Range Interpretation Comments WHITE BLOOD CELL COUNT (BEAKER) 13.6 K/ L 3.5-10.5 H (test code = 775) RED BLOOD CELL COUNT (BEAKER) 2.88 M/ L 4.63-6.08 L (test code = 761) HEMOGLOBIN (BEAKER) (test code = 7.9 GM/DL 13.7-17.5 L 410) HEMATOCRIT (BEAKER) (test code = 25.3 % 40.1-51.0 L 411) MEAN CORPUSCULAR VOLUME (BEAKER) 87.8 fL 79.0-92.2 (test code = 753) MEAN CORPUSCULAR HEMOGLOBIN 27.4 pg 25.7-32.2 (BEAKER) (test code = 751) MEAN CORPUSCULAR HEMOGLOBIN CONC 31.2 GM/DL 32.3-36.5 L (BEAKER) (test code = 752) RED CELL DISTRIBUTION WIDTH 24.0 % 11.6-14.4 H (BEAKER) (test code = 412) PLATELET COUNT (BEAKER) (test 227 K/CU MM 150-450 code = 756) MEAN PLATELET VOLUME (BEAKER) 10.5 fL 9.4-12.4 (test code = 754) NUCLEATED RED BLOOD CELLS 0 /100 WBC 0-0 (BEAKER) (test code = 413) NEUTROPHILS RELATIVE PERCENT 85 % (BEAKER) (test code = 429) LYMPHOCYTES RELATIVE PERCENT 5 % (BEAKER) (test code = 430) MONOCYTES RELATIVE PERCENT 8 % (BEAKER) (test code = 431) EOSINOPHILS RELATIVE PERCENT 0 % (BEAKER) (test code = 432) BASOPHILS RELATIVE PERCENT 0 % (BEAKER) (test code = 437) NEUTROPHILS ABSOLUTE COUNT 11.58 K/ L 1.78-5.38 H (BEAKER) (test code = 670) LYMPHOCYTES ABSOLUTE COUNT 0.69 K/ L 1.32-3.57 L (BEAKER) (test code = 414) MONOCYTES ABSOLUTE COUNT (BEAKER) 1.07 K/ L 0.30-0.82 H (test code = 415) EOSINOPHILS ABSOLUTE COUNT 0.03 K/ L 0.04-0.54 L (BEAKER) (test code = 416) BASOPHILS ABSOLUTE COUNT (BEAKER) 0.03 K/ L 0.01-0.08 (test code = 417) IMMATURE GRANULOCYTES-RELATIVE 2 % 0-1 H PERCENT (BEAKER) (test code = 2801) BLOOD [id number] 02:01:00 Test Item Value Reference Range Interpretation Comments CULTURE (BEAKER) (test No growth in 5 days code = 1095) BLOOD [id number] 02:01:00 Test Item Value Reference Range Interpretation Comments CULTURE (BEAKER) (test No growth in 5 days code = 1095) POCT-GLUCOSE [id number] 22:10:00 Test Item Value Reference Range Interpretation Comments POC-GLUCOSE METER 191 mg/dL 70-[address] [facility] 6720 (BEAKER) (test code = [place] 1538) [id number] POCT-GLUCOSE [id number] 17:32:00 Test Item Value Reference Range Interpretation Comments POC-GLUCOSE METER 243 mg/dL 70-[address] [facility] 6720 (BEAKER) (test code = [place] 1538) [address] POCT-GLUCOSE [id number] 11:45:00 Test Item Value Reference Range Interpretation Comments POC-GLUCOSE METER 211 mg/dL 70-[address] [facility] 6720 ([place]) (test code = [place] 1538) [address] C-REACTIVE [id number] 10:51:00 Test Item Value Reference Range Interpretation Comments C-REACTIVE PROTEIN ([place]) (test 12.99 mg/dL 0.00-0.50 H code = 676) RAD, KNEE, 1 OR 2 VIEWS, [id number] 10:15:00Reason for exam:->knee pain,goutShould this be performed at the bedside?->YesFINAL REPORT TECHNIQUE: Frontal and lateral and oblique radiographs of both k nees dated 11/19/2018 HISTORY: Knee pain, gout COMPARISON: None. FINDINGS:No fracture or dislocationin either knee. Bones are osteopenic. There are small bilateral suprapatellar joint effusions. No bone erosion or soft tissue nodule seen. No radiodense foreign body or subcutaneous emphysema. IMPRESSION:No fracture or dislocation in either knee. Small bilateral suprapatellar joint effusions. Signed: Jean-Paul Santoseport Verified Date/Time: 11/19/2018 10:15:39 Reading Location: [facility] RadiologyReading Room RAD, KNEE, 1 OR 2 VIEWS, LEFT 2018-11-19 10:15:00Reason for exam:->knee pain,goutShould this be performed [...] bilateral suprapatellar joint effusions. Signed: Jean-Paul Santos MDReport Verified Date/Time: 11/19/2018 10:15:39 Reading Location: [facility] RadiologyReading Room POCT-GLUCOSE [id number] 08:02:00 Test Item Value Reference Range Interpretation Comments POC-GLUCOSE METER 166 mg/dL 70-[address] [facility] 6720 (BEAKER) (test code = [place] 1538) [id number] CALCIUM, [id number] 05:58:00 Test Item Value Reference Range Interpretation Comments CALCIUM IONIZED (BEAKER) (test 1.01 mmol/L 1.12-1.27 L code = 698) PH, BLOOD (BEAKER) (test code = 7.40 1810) COMPREHENSIVE METABOLIC [id number] 05:03:00 Test Item Value Reference Range Interpretation Comments TOTAL PROTEIN 4.7 gm/dL 6.0-8.3 L (BEAKER) (test code = 770) ALBUMIN (BEAKER) 2.6 g/dL 3.5-5.0 L (test code = 1145) ALKALINE PHOSPHATASE 195 U/L 40-150 H (BEAKER) (test code = 346) BILIRUBIN TOTAL 2.3 mg/dL 0.2-1.2 H (BEAKER) (test code = 377) SODIUM (BEAKER) (test 131 meq/L 136-145 L code = 381) POTASSIUM (BEAKER) 4.2 meq/L 3.5-5.1 (test code = 379) CHLORIDE (BEAKER) 98 meq/L 98-107 (test code = 382) CO2 (BEAKER) (test 23 meq/L 22-29 code = 355) BLOOD UREA NITROGEN 38 mg/dL 7-21 H (BEAKER) (test code = 354) CREATININE (BEAKER) 2.92 mg/dL 0.57-1.25 H (test code = 358) GLUCOSE RANDOM 135 mg/dL 70-105 H (BEAKER) (test code = 652) CALCIUM (BEAKER) 8.1 mg/dL 8.4-10.2 L (test code = 697) AST (SGOT) (BEAKER) 46 U/L 5-34 H (test code = 353) ALT (SGPT) (BEAKER) 16 U/L 6-55 (test code = 347) EGFR (BEAKER) (test 21 mL/min/1.73 ESTIMA AIDE GFR IS code = 1092) sq m NOT ACCURATE CREATININE CLEARANCE IN PREDICTING GLOMERULAR FILTRATION RATE . ESTIMATED GFR I S NOT APPLICABLE FOR DIALYSIS PATIEN TS. CBC W/PLT COUNT & AUTO [id number] 04:55:00 Test Item Value Reference Range Interpretation Comments WHITE BLOOD CELL COUNT (BEAKER) 8.6 K/ L 3.5-10.5 (test code = 775) RED BLOOD CELL COUNT (BEAKER) 2.85 M/ L 4.63-6.08 L (test code = 761) HEMOGLOBIN (BEAKER) (test code = 7.7 GM/DL 13.7-17.5 L 410) HEMATOCRIT (BEAKER) (test code = 24.6 % 40.1-51.0 L 411) MEAN CORPUSCULAR VOLUME (BEAKER) 86.3 fL 79.0-92.2 (test code = 753) MEAN CORPUSCULAR HEMOGLOBIN 27.0 pg 25.7-32.2 (BEAKER) (test code = 751) MEAN CORPUSCULAR HEMOGLOBIN CONC 31.3 GM/DL 32.3-36.5 L (BEAKER) (test code = 752) RED CELL DISTRIBUTION WIDTH 24.2 % 11.6-14.4 H (BEAKER) (test code = 412) PLATELET COUNT (BEAKER) (test 176 K/CU MM 150-450 code = 756) MEAN PLATELET VOLUME (BEAKER) 10.1 fL 9.4-12.4 (test code = 754) NUCLEATED RED BLOOD CELLS 0 /100 WBC 0-0 (BEAKER) (test code = 413) NEUTROPHILS RELATIVE PERCENT 85 % (BEAKER) (test code = 429) LYMPHOCYTES RELATIVE PERCENT 6 % (BEAKER) (test code = 430) MONOCYTES RELATIVE PERCENT 8 % (BEAKER) (test code = 431) EOSINOPHILS RELATIVE PERCENT 0 % (BEAKER) (test code = 432) BASOPHILS RELATIVE PERCENT 0 % (BEAKER) (test code = 437) NEUTROPHILS ABSOLUTE COUNT 7.29 K/ L 1.78-5.38 H (BEAKER) (test code = 670) LYMPHOCYTES ABSOLUTE COUNT 0.50 K/ L 1.32-3.57 L (BEAKER) (test code = 414) MONOCYTES ABSOLUTE COUNT (BEAKER) 0.65 K/ L 0.30-0.82 (test code = 415) EOSINOPHILS ABSOLUTE COUNT 0.02 K/ L 0.04-0.54 L (BEAKER) (test code = 416) BASOPHILS ABSOLUTE COUNT (BEAKER) 0.02 K/ L 0.01-0.08 (test code = 417) IMMATURE GRANULOCYTES-RELATIVE 2 % 0-1 H PERCENT (BEAKER) (test code = 2801) [id number] 04:54:00 Test Item Value Reference Range Interpretation Comments PHOSPHORUS (BEAKER) (test code = 5.9 mg/dL 2.3-4.7 H 604) [id number] 04:54:00 Test Item Value Reference Range Interpretation Comments MAGNESIUM (BEAKER) (test code = 1.7 mg/dL 1.6-2.6 627) POCT-GLUCOSE [id number] 22:24:00 Test Item Value Reference Range Interpretation Comments POC-GLUCOSE METER 234 mg/dL 70-110 H TESTED AT [place] [address] [facility] ([facility] = [facility] [id number] POCT-GLUCOSE [id number] 17:52:00 Test Item Value Reference Range Interpretation Comments POC-GLUCOSE METER 164 mg/dL 70-110 H TESTED AT [place] [address] ([facility] (test code = [facility]) [id number] POCT-GLUCOSE [id number] 13:53:00 Test Item Value Reference Range Interpretation Comments POC-GLUCOSE METER 165 mg/dL 70-110 H TESTED AT [place] [address] ([facility]) (test code = [facility] 1538) [id number] 06:53:00 Test Item Value Reference Range Interpretation Comments PHOSPHORUS (BEAKER) (test code = 4.5 mg/dL 2.3-4.7 604) [id number] 06:53:00 Test Item Value Reference Range Interpretation Comments MAGNESIUM (BEAKER) (test code = 1.8 mg/dL 1.6-2.6 627) COMPREHENSIVE METABOLIC [id number] 06:53:00 Test Item Value Reference Range Interpretation Comments TOTAL PROTEIN 5.1 gm/dL 6.0-8.3 L (BEAKER) (test code = 770) ALBUMIN (BEAKER) 2.7 g/dL 3.5-5.0 L (test code = 1145) ALKALINE PHOSPHATASE 172 U/L 40-150 H (BEAKER) (test code = 346) BILIRUBIN TOTAL 3.5 mg/dL 0.2-1.2 H (BEAKER) (test code = 377) SODIUM (BEAKER) (test 132 meq/L 136-145 L code = 381) POTASSIUM (BEAKER) 4.1 meq/L 3.5-5.1 (test code = 379) CHLORIDE (BEAKER) 99 meq/L 98-107 (test code = 382) CO2 (BEAKER) (test 24 meq/L 22-29 code = 355) BLOOD UREA NITROGEN 20 mg/dL 7-21 (BEAKER) (test code = 354) CREATININE (BEAKER) 1.98 mg/dL 0.57-1.25 H (test code = 358) GLUCOSE RANDOM 100 mg/dL 70-105 (BEAKER) (test code = 652) CALCIUM (BEAKER) 8.2 mg/dL 8.4-10.2 L (test code = 697) AST (SGOT) (BEAKER) 23 U/L 5-34 (test code = 353) ALT (SGPT) (BEAKER) 10 U/L 6-55 (test code = 347) EGFR (BEAKER) (test 33 mL/min/1.73 ESTIMA AIDE GFR IS code = 1092) sq m NOT ACCURATE CREATININE CLEARANCE IN PREDICTING GLOMERULAR FILTRATION RATE . ESTIMATED GFR I S NOT APPLICABLE FOR DIALYSIS PATIEN TS. Specimen slightly ictericCALCIUM, [id number] 05:57:00 Test Item Value Reference Range Interpretation Comments CALCIUM IONIZED (BEAKER) (test 1.07 mmol/L 1.12-1.27 L code = 698) PH, BLOOD (BEAKER) (test code = 7.37 1810) CBC W/PLT COUNT & AUTO [id number] 05:47:00 Test Item Value Reference Range Interpretation Comments WHITE BLOOD CELL COUNT (BEAKER) 11.7 K/ L 3.5-10.5 H (test code = 775) RED BLOOD CELL COUNT (BEAKER) 3.38 M/ L 4.63-6.08 L (test code = 761) HEMOGLOBIN (BEAKER) (test code = 9.1 GM/DL 13.7-17.5 L 410) HEMATOCRIT (BEAKER) (test code = 30.6 % 40.1-51.0 L 411) MEAN CORPUSCULAR VOLUME (BEAKER) 90.5 fL 79.0-92.2 (test code = 753) MEAN CORPUSCULAR HEMOGLOBIN 26.9 pg 25.7-32.2 (BEAKER) (test code = 751) MEAN CORPUSCULAR HEMOGLOBIN CONC 29.7 GM/DL 32.3-36.5 L (BEAKER) (test code = 752) RED CELL DISTRIBUTION WIDTH 25.1 % 11.6-14.4 H (BEAKER) (test code = 412) PLATELET COUNT (BEAKER) (test 187 K/CU MM 150-450 code = 756) MEAN PLATELET VOLUME (BEAKER) 9.2 fL 9.4-12.4 L (test code = 754) NUCLEATED RED BLOOD CELLS 0 /100 WBC 0-0 (BEAKER) (test code = 413) NEUTROPHILS RELATIVE PERCENT 77 % (BEAKER) (test code = 429) LYMPHOCYTES RELATIVE PERCENT 7 % (BEAKER) (test code = 430) MONOCYTES RELATIVE PERCENT 9 % (BEAKER) (test code = 431) EOSINOPHILS RELATIVE PERCENT 5 % (BEAKER) (test code = 432) BASOPHILS RELATIVE PERCENT 1 % (BEAKER) (test code = 437) NEUTROPHILS ABSOLUTE COUNT 8.95 K/ L 1.78-5.38 H (BEAKER) (test code = 670) LYMPHOCYTES ABSOLUTE COUNT 0.80 K/ L 1.32-3.57 L (BEAKER) (test code = 414) MONOCYTES ABSOLUTE COUNT (BEAKER) 1.09 K/ L 0.30-0.82 H (test code = 415) EOSINOPHILS ABSOLUTE COUNT 0.57 K/ L 0.04-0.54 H (BEAKER) (test code = 416) BASOPHILS ABSOLUTE COUNT (BEAKER) 0.06 K/ L 0.01-0.08 (test code = 417) IMMATURE GRANULOCYTES-RELATIVE 2 % 0-1 H PERCENT (BEAKER) (test code = 2801) HEMOGLOBIN AND [id number] 15:44:00 Test Item Value Reference Range Interpretation Comments HEMOGLOBIN (BEAKER) (test code = 9.4 GM/DL 13.7-17.5 L 410) HEMATOCRIT (BEAKER) (test code = 31.4 % 40.1-51.0 L 411) HEMORRHAGE IMAGING, [id number] 15:07:00FINAL REPORT PROCEDURE: HEMORRHAGE STUDY with RBCs CPT CODE: 24743 INDICATION: Gastrointestinal Bleeding PROTOCOL: 22.0 mCi of [...] interval hemorrhage is seen. Signed: Malachi Villalpando MDReport Verified Date/Time: 11/17/2018 15:07:00 Reading Location: [address] Reading Room PLATELET AGGREGATION: FUNCTION [id number] 12:31:00 Test Item Value Reference Range Interpretation Comments WEAK ADP 90 % 60-91 RESULT(BEAKER) (test code = 2135) PLATELET FUNCTION 60-100% indicates SCREEN INTERP (BEAKER) normal platelet (test code = 2173) function [id number] Kyle Man MD (BEAKER) (test code = (electronic signature) 2622) PLATELET COUNT AGG 215 K/CU MM 150-450 (BEAKER) (test code = 2656) Platelet Function Screen results may be falsely low with platelet counts<100,000/cu mm.xareltoVANCOMYCIN LEVEL, [id number] 09:19:00 Test Item Value Reference Range Interpretation Comments VANCOMYCIN RANDOM (BEAKER) (test 16.1 ug/mL code = 523) Reference Range: No NormalsHEMOGLOBIN AND [id number] 08:24:00 Test Item Value Reference Range Interpretation Comments HEMOGLOBIN (BEAKER) (test code = 8.0 GM/DL 13.7-17.5 L 410) HEMATOCRIT (BEAKER) (test code = 26.3 % 40.1-51.0 L 411) COMPREHENSIVE METABOLIC [id number] 02:44:00 Test Item Value Reference Range Interpretation Comments TOTAL PROTEIN 5.0 gm/dL 6.0-8.3 L (BEAKER) (test code = 770) ALBUMIN (BEAKER) 2.8 g/dL 3.5-5.0 L (test code = 1145) ALKALINE PHOSPHATASE 184 U/L 40-150 H (BEAKER) (test code = 346) BILIRUBIN TOTAL 2.2 mg/dL 0.2-1.2 H (BEAKER) (test code = 377) SODIUM (BEAKER) (test 136 meq/L 136-145 code = 381) POTASSIUM (BEAKER) 4.3 meq/L 3.5-5.1 (test code = 379) CHLORIDE (BEAKER) 103 meq/L 98-107 (test code = 382) CO2 (BEAKER) (test 23 meq/L 22-29 code = 355) BLOOD UREA NITROGEN 23 mg/dL 7-21 H (BEAKER) (test code = 354) CREATININE (BEAKER) 2.87 mg/dL 0.57-1.25 H (test code = 358) GLUCOSE RANDOM 116 mg/dL 70-105 H (BEAKER) (test code = 652) CALCIUM (BEAKER) 8.5 mg/dL 8.4-10.2 (test code = 697) AST (SGOT) (BEAKER) 19 U/L 5-34 (test code = 353) ALT (SGPT) (BEAKER) 9 U/L 6-55 (test code = 347) EGFR (BEAKER) (test 22 mL/min/1.73 ESTIMA AIDE GFR IS code = 1092) sq m NOT ACCURATE CREATININE CLEARANCE IN PREDICTING GLOMERULAR FILTRATION RATE . ESTIMATED GFR I S NOT APPLICABLE FOR DIALYSIS PATIEN TS. [id number] 02:36:00 Test Item Value Reference Range Interpretation Comments PHOSPHORUS (BEAKER) (test code = 4.2 mg/dL 2.3-4.7 604) [id number] 02:36:00 Test Item Value Reference Range Interpretation Comments MAGNESIUM (BEAKER) (test code = 2.2 mg/dL 1.6-2.6 627) CBC W/PLT COUNT & AUTO [id number] 02:25:00 Test Item Value Reference Range Interpretation Comments WHITE BLOOD CELL COUNT (BEAKER) 16.0 K/ L 3.5-10.5 H (test code = 775) RED BLOOD CELL COUNT (BEAKER) 2.91 M/ L 4.63-6.08 L (test code = 761) HEMOGLOBIN (BEAKER) (test code = 7.9 GM/DL 13.7-17.5 L 410) HEMATOCRIT (BEAKER) (test code = 26.0 % 40.1-51.0 L 411) MEAN CORPUSCULAR VOLUME (BEAKER) 89.3 fL 79.0-92.2 (test code = 753) MEAN CORPUSCULAR HEMOGLOBIN 27.1 pg 25.7-32.2 (BEAKER) (test code = 751) MEAN CORPUSCULAR HEMOGLOBIN CONC 30.4 GM/DL 32.3-36.5 L (BEAKER) (test code = 752) RED CELL DISTRIBUTION WIDTH 25.5 % 11.6-14.4 H (BEAKER) (test code = 412) PLATELET COUNT (BEAKER) (test 210 K/CU MM 150-450 code = 756) MEAN PLATELET VOLUME (BEAKER) 9.1 fL 9.4-12.4 L (test code = 754) NUCLEATED RED BLOOD CELLS 0 /100 WBC 0-0 (BEAKER) (test code = 413) NEUTROPHILS RELATIVE PERCENT 79 % (BEAKER) (test code = 429) LYMPHOCYTES RELATIVE PERCENT 6 % (BEAKER) (test code = 430) MONOCYTES RELATIVE PERCENT 9 % (BEAKER) (test code = 431) EOSINOPHILS RELATIVE PERCENT 3 % (BEAKER) (test code = 432) BASOPHILS RELATIVE PERCENT 1 % (BEAKER) (test code = 437) NEUTROPHILS ABSOLUTE COUNT 12.73 K/ L 1.78-5.38 H (BEAKER) (test code = 670) LYMPHOCYTES ABSOLUTE COUNT 0.92 K/ L 1.32-3.57 L (BEAKER) (test code = 414) MONOCYTES ABSOLUTE COUNT (BEAKER) 1.44 K/ L 0.30-0.82 H (test code = 415) EOSINOPHILS ABSOLUTE COUNT 0.55 K/ L 0.04-0.54 H (BEAKER) (test code = 416) BASOPHILS ABSOLUTE COUNT (BEAKER) 0.11 K/ L 0.01-0.08 H (test code = 417) IMMATURE GRANULOCYTES-RELATIVE 2 % 0-1 H PERCENT (BEAKER) (test code = 2801) CALCIUM, [id number] 02:20:00 Test Item Value Reference Range Interpretation Comments CALCIUM IONIZED (BEAKER) (test 1.13 mmol/L 1.12-1.27 code = 698) PH, BLOOD (BEAKER) (test code = 7.43 1810) HEPARIN ASSAY - LOW MOLECULAR [id number] 20:18:00 Test Item Value Reference Range Interpretation Comments LOVENOX-ANTI 10A (BEAKER) (test 0.10 u/ml 0.60-2.00 L code = 1605) Anti-Factor 10-A Level (Heparin Assay for Low Molecular Weight Heparin)Monitoring Guidelines: Blood samples should be obtained 4 hours post subcutaneous injection (time of Peak level) Therapeutic Peak Levels: 0.6-1.0 units/mL twice daily enoxaparin 1.0-2.0 units/mL once daily enoxaparinRef: CHEST 2012;141:[id number] ASSAY - [id number] 20:18:00 Test Item Value Reference Range Interpretation Comments UNFRACTIONATED HEPARIN-ANTI 10A 0.12 u/ml 0.30-0.70 L (BEAKER) (test code = 1606) Recommendations for Monitoring Unfractionated Heparin Therapeutic Range: 0.3- 0.7 u/mL with continuous IV infusionPT/[id number] 20:02:00 Test Item Value Reference Range Interpretation Comments PROTIME (BEAKER) (test code = 15.1 seconds 11.9-14.2 H 759) INR (BEAKER) (test code = 370) 1.2 <=5.9 PARTIAL THROMBOPLASTIN TIME 42.8 seconds 22.5-36.0 H (BEAKER) (test code = 760) Effective 10/27/2018: PT Reference Range ChangeNew: 11.9-14.2 Previous: 11.7- 14.7RECOMMENDED COUMADIN/WARFARIN INR THERAPY RANGESSTANDARD DOSE: 2.0-3.0 Includes: PROPHYLAXIS for venous thrombosis, systemic embolization; TREATMENT for venous thrombosis and/or pulmonary embolus.HIGH RISK: Target INR is2.5-3.5 for patients wiht mechanical heart valves.BASIC METABOLIC [id number] 19:04:00 Test Item Value Reference Range Interpretation Comments SODIUM (BEAKER) 135 meq/L 136-145 L (test code = 381) POTASSIUM (BEAKER) 4.1 meq/L 3.5-5.1 (test code = 379) CHLORIDE (BEAKER) 102 meq/L 98-107 (test code = 382) CO2 (BEAKER) (test 23 meq/L 22-29 code = 355) BLOOD UREA NITROGEN 21 mg/dL 7-21 (BEAKER) (test code = 354) CREATININE (BEAKER) 2.58 mg/dL 0.57-1.25 H (test code = 358) GLUCOSE RANDOM 126 mg/dL 70-105 H (BEAKER) (test code = 652) CALCIUM (BEAKER) 8.3 mg/dL 8.4-10.2 L (test code = 697) EGFR (BEAKER) (test 25 mL/min/1.73 ESTIMA AIDE GFR IS code = 1092) sq m NOT ACCURATE CREATININE CLEARANCE IN PREDICTING GLOMERULAR FILTRATION RATE . ESTIMATED GFR I S NOT APPLICABLE FOR DIALYSIS PATIEN TS. Specimen slightly [id number] 19:01:00 Test Item Value Reference Range Interpretation Comments PHOSPHORUS (BEAKER) (test code = 3.6 mg/dL 2.3-4.7 604) [id number] 19:01:00 Test Item Value Reference Range Interpretation Comments MAGNESIUM (BEAKER) (test code = 2.1 mg/dL 1.6-2.6 627) HEMOGLOBIN AND [id number] 18:27:00 Test Item Value Reference Range Interpretation Comments HEMOGLOBIN (BEAKER) (test code = 8.0 GM/DL 13.7-17.5 L 410) HEMATOCRIT (BEAKER) (test code = 26.3 % 40.1-51.0 L 411) THROMBOELASTOGRAPH (TEG)2018-11-16 14:07:00 Test Item Value Reference Range Interpretation Comments TEG ACTIVATED CLOTTING TIME 4.3 minutes 4.0-7.0 (BEAKER) (test code = 1407) TEG FIBRINOGEN ACTIVITY (BEAKER) 77.9 degrees 61.0-73.0 H (test code = 1408) TEG PLT. AGGREGATION (BEAKER) 73.2 MM 55.0-65.0 H (test code = 1409) TEG FIBRINOLYSIS (BEAKER) (test 0.0 % 0.0-5.0 code = 1410) TGH ACTIVATED CLOTTING TIME 4.4 minutes 4.0-7.0 (BEAKER) (test code = 1411) TGH FIBRINOGEN ACTIVITY (BEAKER) 77.1 degrees 61.0-73.0 H (test code = 1412) TGH PLT. AGGREGATION (BEAKER) 69.6 MM 55.0-65.0 H (test code = 1413) TGH FIBRINOLYSIS (BEAKER) (test 0.0 % 0.0-5.0 code = 1414) [id number] 05:17:00 Test Item Value Reference Range Interpretation Comments PHOSPHORUS (BEAKER) (test code = 3.1 mg/dL 2.3-4.7 604) [id number] 05:17:00 Test Item Value Reference Range Interpretation Comments MAGNESIUM (BEAKER) (test code = 1.7 mg/dL 1.6-2.6 627) COMPREHENSIVE METABOLIC [id number] 05:17:00 Test Item Value Reference Range Interpretation Comments TOTAL PROTEIN 4.7 gm/dL 6.0-8.3 L (BEAKER) (test code = 770) ALBUMIN (BEAKER) 2.7 g/dL 3.5-5.0 L (test code = 1145) ALKALINE PHOSPHATASE 191 U/L 40-150 H (BEAKER) (test code = 346) BILIRUBIN TOTAL 1.8 mg/dL 0.2-1.2 H (BEAKER) (test code = 377) SODIUM (BEAKER) (test 140 meq/L 136-145 code = 381) POTASSIUM (BEAKER) 3.5 meq/L 3.5-5.1 (test code = 379) CHLORIDE (BEAKER) 105 meq/L 98-107 (test code = 382) CO2 (BEAKER) (test 26 meq/L 22-29 code = 355) BLOOD UREA NITROGEN 16 mg/dL 7-21 (BEAKER) (test code = 354) CREATININE (BEAKER) 2.04 mg/dL 0.57-1.25 H (test code = 358) GLUCOSE RANDOM 142 mg/dL 70-105 H (BEAKER) (test code = 652) CALCIUM (BEAKER) 8.3 mg/dL 8.4-10.2 L (test code = 697) AST (SGOT) (BEAKER) 18 U/L 5-34 (test code = 353) ALT (SGPT) (BEAKER) 11 U/L 6-55 (test code = 347) EGFR (BEAKER) (test 32 mL/min/1.73 ESTIMA AIDE GFR IS code = 1092) sq m NOT ACCURATE CREATININE CLEARANCE IN PREDICTING GLOMERULAR FILTRATION RATE . ESTIMATED GFR I S NOT APPLICABLE FOR DIALYSIS PATIEN TS. VANCOMYCIN LEVEL, [id number] 05:12:00 Test Item Value Reference Range Interpretation Comments VANCOMYCIN RANDOM (BEAKER) (test 7.5 ug/mL code = 523) Reference Range: No NormalsCBC W/PLT COUNT & AUTO [id number] 04:51:00 Test Item Value Reference Range Interpretation Comments WHITE BLOOD CELL COUNT (BEAKER) 13.8 K/ L 3.5-10.5 H (test code = 775) RED BLOOD CELL COUNT (BEAKER) 2.76 M/ L 4.63-6.08 L (test code = 761) HEMOGLOBIN (BEAKER) (test code = 7.3 GM/DL 13.7-17.5 L 410) HEMATOCRIT (BEAKER) (test code = 23.7 % 40.1-51.0 L 411) MEAN CORPUSCULAR VOLUME (BEAKER) 85.9 fL 79.0-92.2 (test code = 753) MEAN CORPUSCULAR HEMOGLOBIN 26.4 pg 25.7-32.2 (BEAKER) (test code = 751) MEAN CORPUSCULAR HEMOGLOBIN CONC 30.8 GM/DL 32.3-36.5 L (BEAKER) (test code = 752) RED CELL DISTRIBUTION WIDTH 25.0 % 11.6-14.4 H (BEAKER) (test code = 412) PLATELET COUNT (BEAKER) (test 218 K/CU MM 150-450 code = 756) MEAN PLATELET VOLUME (BEAKER) 9.3 fL 9.4-12.4 L (test code = 754) NUCLEATED RED BLOOD CELLS 0 /100 WBC 0-0 (BEAKER) (test code = 413) NEUTROPHILS RELATIVE PERCENT 78 % (BEAKER) (test code = 429) LYMPHOCYTES RELATIVE PERCENT 6 % (BEAKER) (test code = 430) MONOCYTES RELATIVE PERCENT 10 % (BEAKER) (test code = 431) EOSINOPHILS RELATIVE PERCENT 3 % (BEAKER) (test code = 432) BASOPHILS RELATIVE PERCENT 0 % (BEAKER) (test code = 437) NEUTROPHILS ABSOLUTE COUNT 10.68 K/ L 1.78-5.38 H (BEAKER) (test code = 670) LYMPHOCYTES ABSOLUTE COUNT 0.80 K/ L 1.32-3.57 L (BEAKER) (test code = 414) MONOCYTES ABSOLUTE COUNT (BEAKER) 1.43 K/ L 0.30-0.82 H (test code = 415) EOSINOPHILS ABSOLUTE COUNT 0.40 K/ L 0.04-0.54 (BEAKER) (test code = 416) BASOPHILS ABSOLUTE COUNT (BEAKER) 0.06 K/ L 0.01-0.08 (test code = 417) IMMATURE GRANULOCYTES-RELATIVE 3 % 0-1 H PERCENT (BEAKER) (test code = 2801) CALCIUM, [id number] 04:28:00 Test Item Value Reference Range Interpretation Comments CALCIUM IONIZED (BEAKER) (test 1.11 mmol/L 1.12-1.27 L code = 698) PH, BLOOD (BEAKER) (test code = 7.44 1810) HEMOGLOBIN AND [id number] 00:27:00 Test Item Value Reference Range Interpretation Comments HEMOGLOBIN (BEAKER) (test code = 7.7 GM/DL 13.7-17.5 L 410) HEMATOCRIT (BEAKER) (test code = 24.6 % 40.1-51.0 L 411) HEMOGLOBIN AND [id number] 20:58:00 Test Item Value Reference Range Interpretation Comments HEMOGLOBIN (BEAKER) (test code = 7.8 GM/DL 13.7-17.5 L 410) HEMATOCRIT (BEAKER) (test code = 24.7 % 40.1-51.0 L 411) HEMOGLOBIN AND [id number] 18:18:00 Test Item Value Reference Range Interpretation Comments HEMOGLOBIN (BEAKER) (test code = 8.2 GM/DL 13.7-17.5 L 410) HEMATOCRIT (BEAKER) (test code = 25.9 % 40.1-51.0 L 411) HEMOGLOBIN AND [id number] 13:41:00 Test Item Value Reference Range Interpretation Comments HEMOGLOBIN (BEAKER) (test code = 6.9 GM/DL 13.7-17.5 L 410) HEMATOCRIT (BEAKER) (test code = 21.6 % 40.1-51.0 L 411) HEPATITIS B SURFACE [id number] 10:11:00 Test Item Value Reference Range Interpretation Comments HEPATITIS B SURFACE ANTIGEN (2) Nonreactive Nonreactive (BEAKER) (test code = 2585) For chronic HD patients, draw HBsAg with each admission then every 30 days. HEMOGLOBIN AND [id number] 09:38:00 Test Item Value Reference Range Interpretation Comments HEMOGLOBIN (BEAKER) (test code = 7.0 GM/DL 13.7-17.5 L 410) HEMATOCRIT (BEAKER) (test code = 22.9 % 40.1-51.0 L 411) [id number] 09:24:00 Test Item Value Reference Range Interpretation Comments AMMONIA (BEAKER) (test code = 348) 34 mol/L 18-72 CBC W/PLT COUNT & AUTO [id number] 09:07:00 Test Item Value Reference Range Interpretation Comments WHITE BLOOD CELL COUNT (BEAKER) 13.8 K/ L 3.5-10.5 H (test code = 775) RED BLOOD CELL COUNT (BEAKER) 2.65 M/ L 4.63-6.08 L (test code = 761) HEMOGLOBIN (BEAKER) (test code = 7.1 GM/DL 13.7-17.5 L 410) HEMATOCRIT (BEAKER) (test code = 22.6 % 40.1-51.0 L 411) MEAN CORPUSCULAR VOLUME (BEAKER) 85.3 fL 79.0-92.2 (test code = 753) MEAN CORPUSCULAR HEMOGLOBIN 26.8 pg 25.7-32.2 (BEAKER) (test code = 751) MEAN CORPUSCULAR HEMOGLOBIN CONC 31.4 GM/DL 32.3-36.5 L (BEAKER) (test code = 752) RED CELL DISTRIBUTION WIDTH 26.3 % 11.6-14.4 H (BEAKER) (test code = 412) PLATELET COUNT (BEAKER) (test 231 K/CU MM 150-450 code = 756) MEAN PLATELET VOLUME (BEAKER) 9.5 fL 9.4-12.4 (test code = 754) NUCLEATED RED BLOOD CELLS 0 /100 WBC 0-0 (BEAKER) (test code = 413) (CELLAVISION MANUAL DIFF)2018-11-15 09:07:00 Test Item Value Reference Range Interpretation Comments NEUTROPHILS - REL 91 % (CELLAVISION)(BEAKER) (test code = 2816) LYMPHOCYTES - REL 3 % (CELLAVISION)(BEAKER) (test code = 2817) MONOCYTES - REL 3 % (CELLAVISION)(BEAKER) (test code = 2818) EOSINOPHILS - REL 3 % (CELLAVISION)(BEAKER) (test code = 2819) NEUTROPHILS - ABS 12.56 K/ul 1.78-5.38 H (CELLAVISION)(BEAKER) (test code = 2830) LYMPHOCYTES - ABS 0.41 K/ul 1.32-3.57 L (CELLAVISION)(BEAKER) (test code = 2831) MONOCYTES - ABS 0.41 K/uL 0.30-0.82 (CELLAVISION)(BEAKER) (test code = 2832) EOSINOPHILS - ABS 0.41 K/uL 0.04-0.54 (CELLAVISION)(BEAKER) (test code = 2834) TOTAL COUNTED (BEAKER) (test code 100 = 1351) WBC MORPHOLOGY (BEAKER) (test code Normal = 487) PLT MORPHOLOGY (BEAKER) (test code Normal = 486) POLYCHROMATOPHILLIC RBCS(BEAKER) 1+ few (test code = 478) HYPOCHROMIA (BEAKER) (test code = 1+ few 963) ANISOCYTOSIS (BEAKER) (test code = 1+ few 961) MICROCYTES (BEAKER) (test code = 1+ few 965) POIKILOCYTES (BEAKER) (test code = 1+ few 966) OVALOCYTES (BEAKER) (test code = 1+ few 477) ARTIFACT (CELLAVISION)(BEAKER) Present (test code = 3432) PLATELET CONCENTRATION Adequate (CELLAVISION)(BEAKER) (test code = 3438) Received comment: User comments: Slide comments:BASIC METABOLIC [id number] 05:52:00 Test Item Value Reference Range Interpretation Comments SODIUM (BEAKER) 136 meq/L 136-145 (test code = 381) POTASSIUM (BEAKER) 4.4 meq/L 3.5-5.1 (test code = 379) CHLORIDE (BEAKER) 105 meq/L 98-107 (test code = 382) CO2 (BEAKER) (test 21 meq/L 22-29 L code = 355) BLOOD UREA NITROGEN 55 mg/dL 7-21 H (BEAKER) (test code = 354) CREATININE (BEAKER) 3.81 mg/dL 0.57-1.25 H (test code = 358) GLUCOSE RANDOM 144 mg/dL 70-105 H (BEAKER) (test code = 652) CALCIUM (BEAKER) 8.1 mg/dL 8.4-10.2 L (test code = 697) EGFR (BEAKER) (test 16 mL/min/1.73 ESTIMA AIDE GFR IS code = 1092) sq m NOT ACCURATE CREATININE CLEARANCE IN PREDICTING GLOMERULAR FILTRATION RATE . ESTIMATED GFR I S NOT APPLICABLE FOR DIALYSIS PATIEN TS. [id number] 05:46:00 Test Item Value Reference Range Interpretation Comments PHOSPHORUS (BEAKER) (test code = 7.0 mg/dL 2.3-4.7 H 604) [id number] 05:46:00 Test Item Value Reference Range Interpretation Comments MAGNESIUM (BEAKER) (test code = 1.7 mg/dL 1.6-2.6 627) HEMOGLOBIN AND [id number] 05:25:00 Test Item Value Reference Range Interpretation Comments HEMOGLOBIN (BEAKER) (test code = 7.1 GM/DL 13.7-17.5 L 410) HEMATOCRIT (BEAKER) (test code = 22.6 % 40.1-51.0 L 411) [id number] 00:42:00 Test Item Value Reference Range Interpretation Comments PROCALCITONIN (BEAKER) (test code 1.37 ng/mL <0.05 H = 3036) SEPSIS RISK (ng/mL)Low: 0.05-0.50Intermediate: 0.51-2.00High: >=2.01URINALYSIS W/ REFLEX URINE [id number] 23:53:00 Test Item Value Reference Range Interpretation Comments COLOR (BEAKER) (test code = 470) Yellow CLARITY (BEAKER) (test code = 469) Hazy SPECIFIC GRAVITY UA (BEAKER) (test 1.012 1.001-1.035 code = 468) PH UA (BEAKER) (test code = 467) 5.0 5.0-8.0 PROTEIN UA (BEAKER) (test code = 10 mg/dL Negative A 464) GLUCOSE UA (BEAKER) (test code = Negative Negative 365) KETONES UA (BEAKER) (test code = Negative Negative 371) BILIRUBIN UA (BEAKER) (test code = Negative Negative 462) BLOOD UA (BEAKER) (test code = Moderate Negative A 461) NITRITE UA (BEAKER) (test code = Negative Negative 465) LEUKOCYTE ESTERASE UA (BEAKER) Large Negative A (test code = 466) UROBILINOGEN UA (BEAKER) (test 0.2 mg/dL 0.2-1.0 code = 463) RBC UA (BEAKER) (test code = 519) 240 /HPF WBC UA (BEAKER) (test code = 520) 87 /HPF MUCUS (BEAKER) (test code = 1574) Occasional SQUAMOUS EPITHELIAL (BEAKER) (test 1 /HPF code = 516) HYALINE CASTS (BEAKER) (test code 13 /LPF = 514) GRANULAR CASTS (BEAKER) (test code 2 /LPF = 515) SOURCE(BEAKER) (test code = 2795) CALCIUM, [id number] 23:23:00 Test Item Value Reference Range Interpretation Comments CALCIUM IONIZED (BEAKER) (test 1.10 mmol/L 1.12-1.27 L code = 698) PH, BLOOD (BEAKER) (test code = 7.32 1810) LACTIC ACID, [id number] 23:18:00 Test Item Value Reference Range Interpretation Comments LACTATE BLOOD VENOUS (2) (BEAKER) 0.7 mmol/L 0.5-2.2 (test code = 2872) HEMOGLOBIN AND [id number] 22:54:00 Test Item Value Reference Range Interpretation Comments HEMOGLOBIN (BEAKER) (test code = 6.7 GM/DL 13.7-17.5 L 410) HEMATOCRIT (BEAKER) (test code = 21.5 % 40.1-51.0 L 411) THROMBOELASTOGRAPH (TEG)2018-11-14 22:04:00 Test Item Value Reference Range Interpretation Comments TEG ACTIVATED CLOTTING TIME 7.7 minutes 4.0-7.0 H (BEAKER) (test code = 1407) TEG FIBRINOGEN ACTIVITY (BEAKER) 72.3 degrees 61.0-73.0 (test code = 1408) TEG PLT. AGGREGATION (BEAKER) 70.7 MM 55.0-65.0 H (test code = 1409) TEG FIBRINOLYSIS (BEAKER) (test 0.0 % 0.0-5.0 code = 1410) TGH ACTIVATED CLOTTING TIME 8.0 minutes 4.0-7.0 H (BEAKER) (test code = 1411) TGH FIBRINOGEN ACTIVITY (BEAKER) 71.7 degrees 61.0-73.0 (test code = 1412) TGH PLT. AGGREGATION (BEAKER) 63.6 MM 55.0-65.0 (test code = 1413) TGH FIBRINOLYSIS (BEAKER) (test 2.7 % 0.0-5.0 code = 1414) RAD, CHEST, 1 VIEW, NON [id number] 21:29:00Reason for exam:->CVC placementShould this be performed at the bedside?->YesFINAL REPORT EXAMINATION: AP PORTABLE CHEST RADIOGRAPH CLINICAL INDICATION: Ce ntral line placement IMPRESSION: Compared with 08/03/2018. Tip [...] Robles MDReport Verified Date/Time: 11/14/2018 21:29:04 Reading Location: [address] Reading Room CBC W/PLT COUNT & AUTO [id number] 21:06:00 Test Item Value Reference Range Interpretation Comments WHITE BLOOD CELL COUNT (BEAKER) 14.9 K/ L 3.5-10.5 H (test code = 775) RED BLOOD CELL COUNT (BEAKER) 2.81 M/ L 4.63-6.08 L (test code = 761) HEMOGLOBIN (BEAKER) (test code = 7.3 GM/DL 13.7-17.5 L 410) HEMATOCRIT (BEAKER) (test code = 23.3 % 40.1-51.0 L 411) MEAN CORPUSCULAR VOLUME (BEAKER) 82.9 fL 79.0-92.2 (test code = 753) MEAN CORPUSCULAR HEMOGLOBIN 26.0 pg 25.7-32.2 (BEAKER) (test code = 751) MEAN CORPUSCULAR HEMOGLOBIN CONC 31.3 GM/DL 32.3-36.5 L (BEAKER) (test code = 752) RED CELL DISTRIBUTION WIDTH 25.6 % 11.6-14.4 H (BEAKER) (test code = 412) PLATELET COUNT (BEAKER) (test 265 K/CU MM 150-450 code = 756) MEAN PLATELET VOLUME (BEAKER) 9.1 fL 9.4-12.4 L (test code = 754) NUCLEATED RED BLOOD CELLS 0 /100 WBC 0-0 (BEAKER) (test code = 413) (CELLAVISION MANUAL DIFF)2018-11-14 21:06:00 Test Item Value Reference Range Interpretation Comments NEUTROPHILS - REL 81 % (CELLAVISION)(BEAKER) (test code = 2816) LYMPHOCYTES - REL 8 % (CELLAVISION)(BEAKER) (test code = 2817) MONOCYTES - REL 6 % (CELLAVISION)(BEAKER) (test code = 2818) EOSINOPHILS - REL 3 % (CELLAVISION)(BEAKER) (test code = 2819) MYELOCYTES - REL 1 % 0-0 H (CELLAVISION)(BEAKER) (test code = 2822) BANDS - REL (CELLAVISION)(BEAKER) 1 % 0-10 (test code = 2826) NEUTROPHILS - ABS 12.07 K/ul 1.78-5.38 H (CELLAVISION)(BEAKER) (test code = 2830) LYMPHOCYTES - ABS 1.19 K/ul 1.32-3.57 L (CELLAVISION)(BEAKER) (test code = 2831) MONOCYTES - ABS 0.89 K/uL 0.30-0.82 H (CELLAVISION)(BEAKER) (test code = 2832) EOSINOPHILS - ABS 0.45 K/uL 0.04-0.54 (CELLAVISION)(BEAKER) (test code = 2834) MYELOCYTES-ABS 0.15 K/uL 0.00-0.00 H (CELLAVISION)(BEAKER) (test code = 2837) BANDS - ABS (CELLAVISION)(BEAKER) 0.15 K/uL 0.00-0.80 (test code = 2840) TOTAL COUNTED (BEAKER) (test code 100 = 1351) MANUAL NRBC PER 100 CELLS 1 /100 WBC 0-0 H (BEAKER) (test code = 1353) WBC MORPHOLOGY (BEAKER) (test Normal code = 487) PLT MORPHOLOGY (BEAKER) (test Normal code = 486) POLYCHROMATOPHILLIC RBCS(BEAKER) 2+ moderate (test code = 478) HYPOCHROMIA (BEAKER) (test code = 1+ few 963) ANISOCYTOSIS (BEAKER) (test code 2+ moderate = 961) MICROCYTES (BEAKER) (test code = 2+ moderate 965) MACROCYTES (BEAKER) (test code = 1+ few 964) POIKILOCYTES (BEAKER) (test code 1+ few = 966) ELLIPTOCYTES (BEAKER) (test code 1+ few = 962) OVALOCYTES (BEAKER) (test code = 1+ few 477) TEAR DROP CELLS (BEAKER) (test 1+ few code = 481) JAYME CELLS (BEAKER) (test code = 1+ few 474) ARTIFACT (CELLAVISION)(BEAKER) Present (test code = 3432) PLATELET CONCENTRATION Adequate (CELLAVISION)(BEAKER) (test code = 3438) Received comment: User comments: Slide comments:PROTHROMBIN TIME/[id number] 19:01:00 Test Item Value Reference Range Interpretation Comments PROTIME (BEAKER) (test code = 17.9 seconds 11.9-14.2 H 759) INR (BEAKER) (test code = 370) 1.6 <=5.9 Effective 10/27/2018: PT Reference Range ChangeNew: 11.9-14.2 Previous: 11.7- 14.7RECOMMENDED COUMADIN/WARFARIN INR THERAPY RANGESSTANDARD DOSE: 2.0-3.0 Includes: PROPHYLAXIS for venous thrombosis, systemic embolization; TREATMENT for venous thrombosis and/or pulmonary embolus.HIGH RISK: Target INR is2.5-3.5 for patients wiht mechanical heart valves.COMPREHENSIVE METABOLIC PANEL 2018-11-14 18:58:00 Test Item Value Reference Range Interpretation Comments TOTAL PROTEIN 4.3 gm/dL 6.0-8.3 L (BEAKER) (test code = 770) ALBUMIN (BEAKER) 2.4 g/dL 3.5-5.0 L (test code = 1145) ALKALINE PHOSPHATASE 253 U/L 40-150 H (BEAKER) (test code = 346) BILIRUBIN TOTAL 1.9 mg/dL 0.2-1.2 H (BEAKER) (test code = 377) SODIUM (BEAKER) (test 136 meq/L 136-145 code = 381) POTASSIUM (BEAKER) 4.4 meq/L 3.5-5.1 (test code = 379) CHLORIDE (BEAKER) 104 meq/L 98-107 (test code = 382) CO2 (BEAKER) (test 21 meq/L 22-29 L code = 355) BLOOD UREA NITROGEN 56 mg/dL 7-21 H (BEAKER) (test code = 354) CREATININE (BEAKER) 3.63 mg/dL 0.57-1.25 H (test code = 358) GLUCOSE RANDOM 131 mg/dL 70-105 H (BEAKER) (test code = 652) CALCIUM (BEAKER) 8.0 mg/dL 8.4-10.2 L (test code = 697) AST (SGOT) (BEAKER) 16 U/L 5-34 (test code = 353) ALT (SGPT) (BEAKER) 13 U/L 6-55 (test code = 347) EGFR (BEAKER) (test 17 mL/min/1.73 ESTIMA AIDE GFR IS code = 1092) sq m NOT ACCURATE CREATININE CLEARANCE IN PREDICTING GLOMERULAR FILTRATION RATE . ESTIMATED GFR I S NOT APPLICABLE FOR DIALYSIS PATIEN TS. HEMOGLOBIN AND [id number] 18:39:00 Test Item Value Reference Range Interpretation Comments HEMOGLOBIN (BEAKER) (test code = 6.7 GM/DL 13.7-17.5 L 410) HEMATOCRIT (BEAKER) (test code = 21.7 % 40.1-51.0 L 411) (CELLAVISION MANUAL DIFF)2018-08-03 14:27:00 Test Item Value Reference Range Interpretation Comments NEUTROPHILS - REL 82 % (CELLAVISION)(BEAKER) (test code = 2816) LYMPHOCYTES - REL 5 % (CELLAVISION)(BEAKER) (test code = 2817) MONOCYTES - REL 6 % (CELLAVISION)(BEAKER) (test code = 2818) EOSINOPHILS - REL 6 % (CELLAVISION)(BEAKER) (test code = 2819) BASOPHILS - REL 1 % (CELLAVISION)(BEAKER) (test code = 2820) NEUTROPHILS - ABS 8.61 K/ul 1.78-5.38 H (CELLAVISION)(BEAKER) (test code = 2830) LYMPHOCYTES - ABS 0.53 K/ul 1.32-3.57 L (CELLAVISION)(BEAKER) (test code = 2831) MONOCYTES - ABS 0.63 K/uL 0.30-0.82 (CELLAVISION)(BEAKER) (test code = 2832) EOSINOPHILS - ABS 0.63 K/uL 0.04-0.54 H (CELLAVISION)(BEAKER) (test code = 2834) BASOPHILS - ABS 0.11 K/uL 0.01-0.08 H (CELLAVISION)(BEAKER) (test code = 2835) TOTAL COUNTED (BEAKER) (test code 100 = 1351) MANUAL NRBC PER 100 CELLS 1 /100 WBC 0-0 H (BEAKER) (test code = 1353) WBC MORPHOLOGY (BEAKER) (test Normal code = 487) PLT MORPHOLOGY (BEAKER) (test Normal code = 486) POLYCHROMATOPHILLIC RBCS(BEAKER) 1+ few (test code = 478) HYPOCHROMIA (BEAKER) (test code = 1+ few 963) ANISOCYTOSIS (BEAKER) (test code 1+ few = 961) MICROCYTES (BEAKER) (test code = 1+ few 965) POIKILOCYTES (BEAKER) (test code 1+ few = 966) ELLIPTOCYTES (BEAKER) (test code 1+ few = 962) OVALOCYTES (BEAKER) (test code = 2+ moderate 477) TEAR DROP CELLS (BEAKER) (test 1+ few code = 481) ARTIFACT (CELLAVISION)(BEAKER) Present (test code = 3432) PLATELET CONCENTRATION Adequate (CELLAVISION)(BEAKER) (test code = 3438) Received comment: User comments: Slide comments:CALCIUM, [id number] 07:12:00 Test Item Value Reference Range Interpretation Comments CALCIUM IONIZED (BEAKER) (test 1.10 mmol/L 1.12-1.27 L code = 698) PH, BLOOD (BEAKER) (test code = 7.35 1810) [id number] 06:59:00 Test Item Value Reference Range Interpretation Comments PHOSPHORUS (BEAKER) (test code = 4.3 mg/dL 2.3-4.7 604) [id number] 06:59:00 Test Item Value Reference Range Interpretation Comments MAGNESIUM (BEAKER) (test code = 1.7 mg/dL 1.6-2.6 627) COMPREHENSIVE METABOLIC [id number] 06:59:00 Test Item Value Reference Range Interpretation Comments TOTAL PROTEIN 5.9 gm/dL 6.0-8.3 L (BEAKER) (test code = 770) ALBUMIN (BEAKER) 3.6 g/dL 3.5-5.0 (test code = 1145) ALKALINE PHOSPHATASE 130 U/L 40-150 (BEAKER) (test code = 346) BILIRUBIN TOTAL 1.0 mg/dL 0.2-1.2 (BEAKER) (test code = 377) SODIUM (BEAKER) (test 139 meq/L 136-145 code = 381) POTASSIUM (BEAKER) 4.5 meq/L 3.5-5.1 (test code = 379) CHLORIDE (BEAKER) 108 meq/L 98-107 H (test code = 382) CO2 (BEAKER) (test 22 meq/L 22-29 code = 355) BLOOD UREA NITROGEN 51 mg/dL 7-21 H (BEAKER) (test code = 354) CREATININE (BEAKER) 1.76 mg/dL 0.57-1.25 H (test code = 358) GLUCOSE RANDOM 91 mg/dL 70-105 (BEAKER) (test code = 652) CALCIUM (BEAKER) 9.3 mg/dL 8.4-10.2 (test code = 697) AST (SGOT) (BEAKER) 12 U/L 5-34 (test code = 353) ALT (SGPT) (BEAKER) 6 U/L 6-55 (test code = 347) EGFR (BEAKER) (test 38 mL/min/1.73 ESTIMA AIDE GFR IS code = 1092) sq m NOT ACCURATE CREATININE CLEARANCE IN PREDICTING GLOMERULAR FILTRATION RATE . ESTIMATED GFR I S NOT APPLICABLE FOR DIALYSIS PATIEN TS. B-TYPE NATRIURETIC FACTOR (BNP)2018-08-03 06:47:00 Test Item Value Reference Range Interpretation Comments B-TYPE NATRIURETIC PEPTIDE (BEAKER) 646 pg/mL 0-100 H (test code = 700) CBC W/PLT COUNT & AUTO [id number] 06:32:00 Test Item Value Reference Range Interpretation Comments WHITE BLOOD CELL COUNT (BEAKER) 10.5 K/ L 3.5-10.5 (test code = 775) RED BLOOD CELL COUNT (BEAKER) 2.93 M/ L 4.63-6.08 L (test code = 761) HEMOGLOBIN (BEAKER) (test code = 7.5 GM/DL 13.7-17.5 L 410) HEMATOCRIT (BEAKER) (test code = 25.7 % 40.1-51.0 L 411) MEAN CORPUSCULAR VOLUME (BEAKER) 87.7 fL 79.0-92.2 (test code = 753) MEAN CORPUSCULAR HEMOGLOBIN 25.6 pg 25.7-32.2 L (BEAKER) (test code = 751) MEAN CORPUSCULAR HEMOGLOBIN CONC 29.2 GM/DL 32.3-36.5 L (BEAKER) (test code = 752) RED CELL DISTRIBUTION WIDTH 16.9 % 11.6-14.4 H (BEAKER) (test code = 412) PLATELET COUNT (BEAKER) (test 321 K/CU MM 150-450 code = 756) MEAN PLATELET VOLUME (BEAKER) 10.1 fL 9.4-12.4 (test code = 754) NUCLEATED RED BLOOD CELLS 0 /100 WBC 0-0 (BEAKER) (test code = 413) RAD, CHEST, 1 VIEW, NON [id number] 00:54:00Reason for exam:->edemaShould this be performed at the bedside?->YesFINAL REPORT INDICATION: edema COMPARISON: January 05, 2013 TECHNIQUE: Single frontal view of the chest. FINDINGS: Lungs and pleura: Clear lungs. No effusion.Heart and mediastinum:Unchanged cardiomegaly. Unremarkable mediastinal contours.Osseous structures: No acute abnormality.Other: None. IMPRESSION: No pulmonary edema. Signed: Camryn Webb MDReport Verified Date/Time: 08/03/2018 00:54:17 Reading Location: [address] Neuro Reading Room BASIC METABOLIC PANEL 2018-08-02 07:08:00 Test Item Value Reference Range Interpretation Comments SODIUM (BEAKER) 138 meq/L 136-145 (test code = 381) POTASSIUM (BEAKER) 4.8 meq/L 3.5-5.1 (test code = 379) CHLORIDE (BEAKER) 107 meq/L 98-107 (test code = 382) CO2 (BEAKER) (test 19 meq/L 22-29 L code = 355) BLOOD UREA NITROGEN 67 mg/dL 7-21 H (BEAKER) (test code = 354) CREATININE (BEAKER) 2.06 mg/dL 0.57-1.25 H (test code = 358) GLUCOSE RANDOM 110 mg/dL 70-105 H (BEAKER) (test code = 652) CALCIUM (BEAKER) 9.5 mg/dL 8.4-10.2 (test code = 697) EGFR (BEAKER) (test 32 mL/min/1.73 ESTIMA AIDE GFR IS code = 1092) sq m NOT ACCURATE CREATININE CLEARANCE IN PREDICTING GLOMERULAR FILTRATION RATE . ESTIMATED GFR I S NOT APPLICABLE FOR DIALYSIS PATIEN TS. CBC (HEMOGRAM ONLY)2018-08-02 06:53:00 Test Item Value Reference Range Interpretation Comments WHITE BLOOD CELL COUNT (BEAKER) 10.6 K/ L 3.5-10.5 H (test code = 775) RED BLOOD CELL COUNT (BEAKER) 2.97 M/ L 4.63-6.08 L (test code = 761) HEMOGLOBIN (BEAKER) (test code = 7.9 GM/DL 13.7-17.5 L 410) HEMATOCRIT (BEAKER) (test code = 25.7 % 40.1-51.0 L 411) MEAN CORPUSCULAR VOLUME (BEAKER) 86.5 fL 79.0-92.2 (test code = 753) MEAN CORPUSCULAR HEMOGLOBIN 26.6 pg 25.7-32.2 (BEAKER) (test code = 751) MEAN CORPUSCULAR HEMOGLOBIN CONC 30.7 GM/DL 32.3-36.5 L (BEAKER) (test code = 752) RED CELL DISTRIBUTION WIDTH 16.5 % 11.6-14.4 H (BEAKER) (test code = 412) PLATELET COUNT (BEAKER) (test 319 K/CU MM 150-450 code = 756) MEAN PLATELET VOLUME (BEAKER) 10.4 fL 9.4-12.4 (test code = 754) NUCLEATED RED BLOOD CELLS 1 /100 WBC 0-0 H (BEAKER) (test code = 413) POCT-GLUCOSE [id number] 21:37:00 Test Item Value Reference Range Interpretation Comments POC-GLUCOSE METER 158 mg/dL 70-[address] [facility] [address] ([facility]) (test code = [place] 1538) [address] BASIC METABOLIC [id number] 19:11:00 Test Item Value Reference Range Interpretation Comments SODIUM (BEAKER) 135 meq/L 136-145 L (test code = 381) POTASSIUM (BEAKER) 4.8 meq/L 3.5-5.1 (test code = 379) CHLORIDE (BEAKER) 107 meq/L 98-107 (test code = 382) CO2 (BEAKER) (test 19 meq/L 22-29 L code = 355) BLOOD UREA NITROGEN 78 mg/dL 7-21 H (BEAKER) (test code = 354) CREATININE (BEAKER) 2.20 mg/dL 0.57-1.25 H (test code = 358) GLUCOSE RANDOM 182 mg/dL 70-105 H (BEAKER) (test code = 652) CALCIUM (BEAKER) 9.3 mg/dL 8.4-10.2 (test code = 697) EGFR (BEAKER) (test 30 mL/min/1.73 ESTIMA AIDE GFR IS code = 1092) sq m NOT ACCURATE CREATININE CLEARANCE IN PREDICTING GLOMERULAR FILTRATION RATE . ESTIMATED GFR I S NOT APPLICABLE FOR DIALYSIS PATIEN TS. CREATININE, RANDOM [id number] 13:56:00 Test Item Value Reference Range Interpretation Comments CREATININE URINE (BEAKER) (test 40.1 mg/dL code = 375) Reference Range: No NormalsSODIUM, RANDOM [id number] 13:56:00 Test Item Value Reference Range Interpretation Comments SODIUM URINE (BEAKER) (test code = 70 meq/L 243) Reference Range: No NormalsUREA NITROGEN, RANDOM [id number] 13:56:00 Test Item Value Reference Range Interpretation Comments UREA NITROGEN URINE (BEAKER) (test 694 mg/dL code = 538) Reference Range: No NormalsURINALYSIS W/ [id number] 13:55:00 Test Item Value Reference Range Interpretation Comments COLOR (BEAKER) (test code = 470) Light Yellow CLARITY (BEAKER) (test code = Clear 469) SPECIFIC GRAVITY UA (BEAKER) 1.010 1.001-1.035 (test code = 468) PH UA (BEAKER) (test code = 467) 6.5 5.0-8.0 PROTEIN UA (BEAKER) (test code = Negative Negative 464) GLUCOSE UA (BEAKER) (test code = Negative Negative 365) KETONES UA (BEAKER) (test code = Negative Negative 371) BILIRUBIN UA (BEAKER) (test code Negative Negative = 462) BLOOD UA (BEAKER) (test code = Negative Negative 461) NITRITE UA (BEAKER) (test code = Negative Negative 465) LEUKOCYTE ESTERASE UA (BEAKER) Negative Negative (test code = 466) UROBILINOGEN UA (BEAKER) (test 0.2 mg/dL 0.2-1.0 code = 463) RBC UA (BEAKER) (test code = 0 /HPF 519) WBC UA (BEAKER) (test code = 0 /HPF 520) SOURCE(BEAKER) (test code = 7556) CBC W/PLT COUNT & AUTO [id number] 07:31:00 Test Item Value Reference Range Interpretation Comments WHITE BLOOD CELL COUNT (BEAKER) 11.1 K/ L 3.5-10.5 H (test code = 775) RED BLOOD CELL COUNT (BEAKER) 2.63 M/ L 4.63-6.08 L (test code = 761) HEMOGLOBIN (BEAKER) (test code = 6.8 GM/DL 13.7-17.5 L 410) HEMATOCRIT (BEAKER) (test code = 22.9 % 40.1-51.0 L 411) MEAN CORPUSCULAR VOLUME (BEAKER) 87.1 fL 79.0-92.2 (test code = 753) MEAN CORPUSCULAR HEMOGLOBIN 25.9 pg 25.7-32.2 (BEAKER) (test code = 751) MEAN CORPUSCULAR HEMOGLOBIN CONC 29.7 GM/DL 32.3-36.5 L (BEAKER) (test code = 752) RED CELL DISTRIBUTION WIDTH 16.6 % 11.6-14.4 H (BEAKER) (test code = 412) PLATELET COUNT (BEAKER) (test 302 K/CU MM 150-450 code = 756) MEAN PLATELET VOLUME (BEAKER) 10.9 fL 9.4-12.4 (test code = 754) NUCLEATED RED BLOOD CELLS 1 /100 WBC 0-0 H (BEAKER) (test code = 413) NEUTROPHILS RELATIVE PERCENT 69 % (BEAKER) (test code = 429) LYMPHOCYTES RELATIVE PERCENT 12 % (BEAKER) (test code = 430) MONOCYTES RELATIVE PERCENT 12 % (BEAKER) (test code = 431) EOSINOPHILS RELATIVE PERCENT 5 % (BEAKER) (test code = 432) BASOPHILS RELATIVE PERCENT 1 % (BEAKER) (test code = 437) NEUTROPHILS ABSOLUTE COUNT 7.66 K/ L 1.78-5.38 H (BEAKER) (test code = 670) LYMPHOCYTES ABSOLUTE COUNT 1.32 K/ L 1.32-3.57 (BEAKER) (test code = 414) MONOCYTES ABSOLUTE COUNT (BEAKER) 1.32 K/ L 0.30-0.82 H (test code = 415) EOSINOPHILS ABSOLUTE COUNT 0.52 K/ L 0.04-0.54 (BEAKER) (test code = 416) BASOPHILS ABSOLUTE COUNT (BEAKER) 0.09 K/ L 0.01-0.08 H (test code = 417) IMMATURE GRANULOCYTES-RELATIVE 1 % 0-1 PERCENT (BEAKER) (test code = 2801) BASIC METABOLIC [id number] 07:26:00 Test Item Value Reference Range Interpretation Comments SODIUM (BEAKER) 136 meq/L 136-145 (test code = 381) POTASSIUM (BEAKER) 5.2 meq/L 3.5-5.1 H (test code = 379) CHLORIDE (BEAKER) 106 meq/L 98-107 (test code = 382) CO2 (BEAKER) (test 22 meq/L 22-29 code = 355) BLOOD UREA NITROGEN 93 mg/dL 7-21 H (BEAKER) (test code = 354) CREATININE (BEAKER) 2.30 mg/dL 0.57-1.25 H (test code = 358) GLUCOSE RANDOM 113 mg/dL 70-105 H (BEAKER) (test code = 652) CALCIUM (BEAKER) 9.2 mg/dL 8.4-10.2 (test code = 697) EGFR (BEAKER) (test 28 mL/min/1.73 ESTIMA AIDE GFR IS code = 1092) sq m NOT ACCURATE CREATININE CLEARANCE IN PREDICTING GLOMERULAR FILTRATION RATE . ESTIMATED GFR I S NOT APPLICABLE FOR DIALYSIS PATIEN TS. [id number] 07:25:00 Test Item Value Reference Range Interpretation Comments MAGNESIUM (BEAKER) (test code = 2.3 mg/dL 1.6-2.6 627) [id number] 07:06:00 Test Item Value Reference Range Interpretation Comments PROTIME (BEAKER) (test code = 15.7 seconds 11.7-14.7 H 759) INR (BEAKER) (test code = 370) 1.2 <=5.9 PARTIAL THROMBOPLASTIN TIME 31.7 seconds 22.5-36.0 (BEAKER) (test code = 760) RECOMMENDED COUMADIN/WARFARIN INR THERAPY RANGESSTANDARD DOSE: 2.0 - 3.0 Includes: PROPHYLAXIS forvenous thrombosis, systemic embolization; TREATMENT for venous thrombosis and/or pulmonary embolus.HIGH RISK: Target INR is 2.5-3.5 for patients with mechanical heart valves.
--- OUTSIDE RECORDS SUMMARY | 2019-10-18 13:41 | XMS REPORT | Summary of Care ---
:1945 Author Organization [facility] - [facility] Address [address] [place] [id number] Care Team Providers Name Role Phone Pcp, Does Not Have A Primary Care Provider Reason for Visit Reason Comments Back Pain chronic Auth/Cert Status Reason Specialty Diagnoses / Referred By Referred To Procedures Contact Contact Emergency Medicine Adc Em ergency Dept [address] [place] [address] Fax: Encounter Details Date Type Department Care Team Description 09/14/2019 Emergency ADC-Emergency Aman Mcintyre MD Chronic bilateral low Department [address] [facility] back pain without [address] [facility] [id number] sciatica (Primary Dx) [address] [phone] Allergies No Known Allergiesdocumented as of this encounter (statuses as of 09/14/2019) Medications Not on filedocumented as of this encounter (statuses as of 09/14/2019) Active Problems Not on filedocumented as of this encounter (statuses as of 09/14/2019) Social History Tobacco Use Types Packs/Day Years Used Date Never Assessed Sex Assigned at Date Recorded Not on file Job Start Date Occupation Industry Not on file Not on file Not on file Travel History Travel Start Travel End No recent travel history available. documented as of this encounter Last Filed Vital Signs Vital Sign Reading Time Taken Comments Blood Pressure 96/60 09/14/2019 3:58 PM CDT Pulse 108 09/14/2019 3:58 PM CDT Temperature 37.3 C (99.2 F) 09/14/2019 3:29 PM CDT Respiratory Rate 16 09/14/2019 3:58 PM CDT Oxygen Saturation 97% 09/14/2019 3:58 PM CDT Inhaled Oxygen Concentration - - Weight 79.8 kg (176 lb) 09/14/2019 3:29 PM CDT Height - - Body Mass Index - - documented in this encounter Discharge Instructions Aman Garrett MD - 09/14/2019 DIAGNOSIS Diagnoses that have been ruled out: None Diagnoses that are still under consideration: None Final diagnoses: Chronic bilateral low back pain without sciatica NO LIFE-THREATENING FINDINGS ON TODAY'S EXAM. PROCEDURES IN THE ER TODAY: No orders of the defined types were placed in this encounter. MEDICATIONS ADMINISTERED IN THE ER TODAY: Orders Placed This Encounter Medications FENTanyl PF (SUBLIMAZE (PF)) injection 50 mcg YOUR PRESCRIPTIONS AND [id number] MEDICATION RECOMMENDATIONS: Continue home medications SPECIAL CARE INSTRUCTIONS: Follow up with Pain management FOLLOW-UP RECOMMENDATIONS: RECOMMEND FOLLOW-UP WITH A PRIMARY CARE PROVIDER OR SPECIALIST IN 2-5 DAYS, ESPECIALLY IF NO IMPROVEMENT IN SYMPTOMS. TO FOLLOW-UP WITHIN THE [facility], TRY THESE OPTIONS (CLINIC APPOINTMENTS AVAILABLE ON [id number] BASIS): 1. SCHEDULE AN APPOINTMENT ONLINE AT WWW[facility] 2. OR CALL THE [facility] AT OR 3. OR CALL YOUR [facility] PHYSICIAN'S OFFICE DIRECTLY IF YOU ARE ALREADY AN ESTABLISHED [facility] PATIENT. OR, YOU MAY FOLLOW-UP WITH A PROVIDER OF YOUR CHOICE, SUCH : 1. A PHYSICIAN OF YOUR CHOICE 2. [facility], . LOCATIONS IN [facility] [place] 3. [facility], [address] [place] [address]; [phone] RETURN TO ER FOR WORSENING OF SYMPTOMS. AttachmentsThe following attachments cannot be sent through Care Everywhere.Back Pain, Relieving (Iranian)documented in this encounter Plan of Treatment Health Maintenance Due Date Last Done Comments HEPATITIS C (HCV) SCREEN 1945 DTaP,Tdap,and Td Vaccines (1 - Tdap) 1957 COLONOSCOPY 1996 Zoster Recombinant Vaccine (SHINGRIX) (1 of 2) 1996 Medicare Wellness Visit 2011 PNEUMOCOCCAL VACCINES 65+ (1 of 2 - PCV13) 2011 INFLUENZA VACCINE (#1) 2019 documented as of this encounter Results Not on filedocumented in this encounter Visit Diagnoses Diagnosis Chronic bilateral low back pain without sciatica - Primary documented in this encounter Administered Medications Medication Order MAR Action Action Date Dose Rate Site FENTanyl PF (SUBLIMAZE Given 09/14/2019 5:04 PM 50 mcg Right (PF)) injection 50 mcg CDT Dorsogluteal-IM 50 mcg, Intramuscular, ONCE, 1 dose, Thu09/14/19 at 1800, STAT documented in this encounter Insurance Payer Benefit Plan / Subscriber ID Effective Phone Address T ype Group Dates MEDICARE MEDICARE PART A xxxxxxxxxxx 2011-Pre [phone] [address] Medicare & B sent [id number] [place] [id number] BCBS OF BCBS [id number] 2013-Pr [phone] [facility] esent [phone] [place] [address] documented as of this encounter
[2019-10-18] MEDS ORDERED: DIAZEPAM 5 MG TABLET ONE (14:31)
[2019-10-18] MEDS ORDERED: HYDROCODONE/APAP 5/325 MG TAB ONE ×2 (14:32→23:01)
[2019-10-18 15:35] LABS: Absolute Lymphocytes (CBC) 0.7 K/uL (0.7-4.9); Basophils % 0.8 % (0-1.3); Hematocrit 28.8 % (39.6-49.0); MPV 8.6 fL (7.6-11.3); RBC Red Blood Cell Count 3.32 M/uL (4.33-5.43)
[2019-10-18 15:36] LABS: Protime INR 1.24
[2019-10-18 15:53] LABS: Albumin 2.2 g/dL (3.4-5.0); Bilirubin Direct 0.4 mg/dL (0-0.2); Magnesium 2.4 mg/dL (1.8-2.4); Potassium 4.5 mmol/L (3.5-5.1); Protein, Total 6.3 g/dL (6.4-8.2); Troponin (Emerg Dept Use Only) 0.03 ng/mL (0.0-0.045)
--- NOTE | 2019-10-18 16:05 | RAD REPORT ---
EXAM DESCRIPTION: RAD - Chest Single View - 10/18/2019 4:00 pm CLINICAL HISTORY: missed dialysis x 1 wk Chest pain. COMPARISON: Chest Pa And Lat (2 Views) dated 06/29/2019; Chest Pa And Lat (2 Views) dated 11/09/2018; Chest Single View dated 07/31/2018; Chest Pa And Lat (2 Views) dated 07/13/2018 FINDINGS: Portable technique limits examination quality. The lungs are grossly clear. The heart is significantly enlarged. Right-sided venous catheter has tip in the SVC. IMPRESSION: Significant cardiomegaly.
--- NOTE | 2019-10-18 18:56 | EKG ---
Test Date: 2019-10-18 Test Time: 15:42:36 Top Former: GASPER MEASUREMENT RESULTS: Intervals: Rate: 108 [place]: QRSD: 106 QT: 330 QTc: 442 [place]: P: [place]: QRS: 46 T: 99 INTERPRETIVE STATEMENTS: Atrial fibrillation with rapid ventricular response Septal infarct, age undetermined Abnormal ECG Compared to ECG 07/31/2018 16:41:01 Myocardial infarct finding now present Electronically Signed On 10-18-19 18:56:02 CDT by Jimenez Jovel
--- NOTE | 2019-10-18 20:47 | ER ---
Nurse's Notes [facility] Name: Tam Escalante Age: 74 yrs Sex: Male : 1945 Arrival Date: 10/18/2019 Time: 13:42 Bed 20 Private MD: Diagnosis: Chronic kidney disease, stage 5;Chronic pain, not elsewhere classified Presentation: 10/17 13:35 Chief complaint: EMS states: chronic low back pain, saw pain MD in [place] and awaiting results. Pt last took hydrocodone at 0900am. Pt is a dialysis Pt and has not been since last thursday. Coronavirus screen: Proceed with normal triage. Patient denies a cough. Patient denies shortness of breath or difficulty breathing. Patient denies measured and/or subjective temperature greater than 100.4F prior to today's visit. Patient denies travel on a cruise ship or to a country the [facility] currently lists as an affected area. Patient denies contact with known and/or suspected case of COVID-19. Ebola Screen: No symptoms or risks identified at this time. Initial Sepsis Screen: Does the patient meet any 2 criteria? No. Patient's initial sepsis screen is negative. Does the patient have a suspected source of infection? No. Patient's initial sepsis screen is negative. Risk Assessment: Do you want to hurt yourself or someone else? Patient reports no desire to harm self or others. Onset of symptoms is unknown. 13:35 Method Of Arrival: [place]: [place] 13:35 Acuity: [facility] 3 ah 14:05 Note pt is normally a MWF dialysis pt, no dialysis since 10/10/2019. tw2 Triage Assessment: 13:35 General: Appears uncomfortable, unkempt, Behavior is cooperative, appropriate for age, tw2 fussy. Pain: Complains of pain in back Pain currently is 10 out of 10 on a pain scale. Historical: - Allergies: 13:50 No Known Allergies; - Home Meds: 13:51 allopurinol 100 mg Oral tab 1 tab once daily [Active]; colchicine 0.6 mg Oral tab as ah needed [Active]; folic acid 1 mg Oral tab 1 tab once daily [Active]; isosorbide dinitrate 30 mg Oral tab daily [Active]; metoprolol tartrate 100 mg Oral tab 2 times per day [Active]; torsemide 20 mg Oral tab 1 tab once daily [Active]; trazodone 50 mg Oral tab daily [Active]; Xarelto 15 mg Oral tab daily [Active]; - PMHx: 13:50 Dialysis; GI Bleed; ESRD; Hypertension; Stomach ulcer; ah - PSHx: 13:50 None; ah - Immunization history:: Adult Immunizations up to date. - Social history:: Smoking status: Patient denies any tobacco usage or history of. Patient/guardian denies using alcohol. Screenin:06 Abuse screen: Denies threats or abuse. Nutritional screening: No deficits noted. tw2 Tuberculosis screening: No symptoms or risk factors identified. Fall Risk None identified. Assessment: 13:35 General: Appears uncomfortable, unkempt, Behavior is cooperative, appropriate for age, tw2 fussy. Pain: Complains of pain in lumbar area, left low back, left mid back, right mid back and right low back. Neuro: Level of Consciousness is awake, alert, obeys commands, Oriented to person, place, time, situation. Cardiovascular: Heart tones S1 S2 Patient's skin is warm and dry. Cardiovascular: Denies chest pain, shortness of breath, Edema is 3+ to left midcalf, left ankle, right midcalf and right ankle Rhythm is atrial fibrillation. Respiratory: Airway is patent Respiratory effort is even, unlabored, Respiratory pattern is regular, symmetrical, Breath sounds are clear bilaterally. GI: Abdomen is round non-distended, Bowel sounds present X 4 quads. Reports lower abdominal pain, upper abdominal pain. : No signs and/or symptoms were reported regarding the genitourinary system. EENT: No signs and/or symptoms were reported regarding the EENT system. Derm: Skin is fragile, is thin, Skin is dry. Musculoskeletal: Reports pain in back pt states " i just havent been to dialysis because my back hurts too much". 14:33 Reassessment: pt refused xray at this time, refused to let Harper Hilton sit him tw2 upright, pt states "i want my pain medicine to kick in before i try to do that", provider notified. 15:00 Reassessment: Patient and/or family updated on plan of care and expected duration. Pain tw2 level reassessed. pt drowsy but arousable at this time, pt still c/o "my back hurts still", offered to reposition pt, pt refused at this time, pt also states "i itch all over", pt educated as to the need for dialysis to help with some of these symptoms. 15:48 Reassessment: No changes from previously documented assessment. Patient and/or family tw2 updated on plan of care and expected duration. Pain level reassessed. pt quiet before entering room, when i entered room pt began moaning out loud "oh, my back hurts oh it hurts", offered pt to reposition and pt refused at this time. Patient states symptoms have not improved. 16:30 Reassessment: No changes from previously documented assessment. Patient and/or family tw2 updated on plan of care and expected duration. Pain level reassessed. 17:24 Reassessment: No changes from previously documented assessment. Patient and/or family tw2 updated on plan of care and expected duration. Pain level reassessed. 18:30 Reassessment: No changes from previously documented assessment. Patient and/or family tw2 updated on plan of care and expected duration. Pain level reassessed. 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 19:00 General: Appears uncomfortable, Behavior is cooperative, fussy. Pain: Complains of pain ea in back. Neuro: Level of Consciousness is awake, alert, obeys commands, Oriented to person. Cardiovascular: Patient's skin is warm and dry. Respiratory: Airway is patent Respiratory effort is even, unlabored, Respiratory pattern is regular, symmetrical. Derm: Skin is fragile, is thin, Skin is dry, Skin is normal, Skin temperature is warm. 20:27 Reassessment: Patient and/or family updated on plan of care and expected duration. Pain ea level reassessed. Resting with eyes closed, respirations even and unlabored. Chest expansions even and symmetrical. 21:32 Reassessment: Patient and/or family updated on plan of care and expected duration. Pain ea level reassessed. Pt reports pain in his back, order obtained from [facility] standing orders, morphine 2mg per IVP administered, pt tolerated well. 22:34 Reassessment: Patient and/or family updated on plan of care and expected duration. Pain ea level reassessed. Pt alert and oriented to self and place. respirations even and unlabored, chest expansions even and symmetrical. Report given to Tammy BELLO. Vital Signs: 13:35 BP 110 / 72; Pulse 110; Resp 21; Temp 97.6; Pulse Ox 96% ; Weight 96.16 kg; Height 5 ft. 9 in. (175.26 cm); 14:03 BP 105 / 68; Pulse 122; Resp 17; Pulse Ox 99% on R/A; tw2 15:00 BP 99 / 70; Pulse 110; Resp 17; Pulse Ox 96% on R/A; tw2 15:48 BP 101 / 72; Pulse 113; Resp 17; Pulse Ox 97% on R/A; tw2 16:30 BP 109 / 68; Pulse 115; Resp 17; Pulse Ox 97% on R/A; tw2 17:23 BP 107 / 66; Pulse 107; Resp 17; Pulse Ox 99% on R/A; tw2 18:30 BP 119 / 82; Pulse 124; Resp 18; Pulse Ox 97% on R/A; tw2 19:00 BP 140 / 92; Pulse 130; Resp 20; Pulse Ox 98% on R/A; ea 20:31 BP 127 / 75; Pulse 127; Resp 21; Pulse Ox 100% ; ea 22:36 BP 137 / 84; Pulse 118; Resp 20; Pulse Ox 98% ; ea 13:35 Body Mass Index 31.31 (96.16 kg, 175.26 cm) ED Course: 13:35 Bed in low position. Call light in reach. Side rails up X2. monitoring analyst on. Pulse tw2 ox on. NIBP on. Door closed. Visitors limited. Lights dimmed. Warm blanket given. Pillow given. Verbal reassurance given. Head of bed Elevated. 13:42 Patient arrived in ED. 13:47 Triage completed. 14:02 Blanca Rice RN is Primary Nurse. tw2 14:05 Arm band placed on. tw2 14:12 [facility]C [facility] snw 14:12 Jeison Cao MD is Attending Physician. snw 14:31 Maintain EMS IV. Dressing intact. Site clean \\T\\ dry. Gauge \\T\\ site: 20 g Right AC. tw 2 15:16 XRAY Chest (1 view) In Process Unspecified. EDMS 19:05 Report given to ACE Barraza. tw2 19:18 Attending Physician role handed off by Jeison Cao MD tw4 19:18 Trino Ramos MD is Attending Physician. tw4 20:40 Alvina Sepulveda MD is Hospitalizing Provider. tw4 21:59 No provider procedures requiring assistance completed. Patient admitted, IV remains in ea place. Administered Medications: 14:30 Drug: Pool 5 mg-325 mg 1 tabs Route: PO; tw2 19:00 Follow up: Response: No adverse reaction ea 14:30 Drug: Valium 5 mg Route: PO; tw2 19:00 Follow up: Response: No adverse reaction ea Outcome: 20:45 Decision to Hospitalize by Provider. tw4 22:00 Instructed on the need for admit. ea 22:37 Admitted to Med/surg accompanied by nurse, via stretcher, room 425, with chart, Report ea called to Tammy BELLO 22:37 Condition: stable 23:00 Patient left the ED. ea Signatures: Dispatcher [employer] EDSC Brielle White, NAILER OPERATOR-C NAILER OPERATOR-Csnw Blanca Rice, RN RN tw2 Nathaly Leija, RN Trino Leslie ea, MD MD tw4 Penny Call, RN RN Corrections: (The following items were deleted from the chart) 19:16 15:48 Reassessment: No changes from previously documented assessment. Patient and/or tw2 family updated on plan of care and expected duration. Pain level reassessed. Patient is alert, oriented x 3, equal unlabored respirations, skin warm/dry/pink. pt quiet before entering room, when i entered room pt began moaning out loud "oh, my back hurts oh it hurts", offered pt to reposition and pt refused at this time. Patient states symptoms have improved. tw2 19:16 16:30 Reassessment: No changes from previously documented assessment. Patient and/or tw2 family updated on plan of care and expected duration. Pain level reassessed. Patient is alert, oriented x 3, equal unlabored respirations, skin warm/dry/pink. tw2 19:16 17:24 Reassessment: No changes from previously documented assessment. Patient and/or tw2 family updated on plan of care and expected duration. Pain level reassessed. Patient is alert, oriented x 3, equal unlabored respirations, skin warm/dry/pink. tw2
--- NOTE | 2019-10-18 20:47 | EDPHYS ---
Physician Documentation [facility] Name: Tam Escalante Age: 74 yrs Sex: Male : 1945 Arrival Date: 10/18/2019 Time: 13:42 Bed 20 Private MD: ED Physician Trino Ramos HPI: 10/17 15:41 This 74 yrs old Male presents to ER via EMS with complaints of back pain. snw 15:41 The patient presents with pain that is acute. The symptoms are located in the low back. snw Onset: The symptoms/episode began/occurred acutely. The pain does not radiate. Associated signs and symptoms: Pertinent positives: spasm. The problem was sustained from unknown cause. Modifying factors: The patient symptoms are alleviated by nothing. Severity of symptoms: At their worst the symptoms were severe, incapacitating. It is unknown whether or not the patient has had similar symptoms in the past. Pt states he saw someone about his back in [place]. Historical: - Allergies: 13:50 No Known Allergies; - Home Meds: 13:51 allopurinol 100 mg Oral tab 1 tab once daily [Active]; colchicine 0.6 mg Oral tab as ah needed [Active]; folic acid 1 mg Oral tab 1 tab once daily [Active]; isosorbide dinitrate 30 mg Oral tab daily [Active]; metoprolol tartrate 100 mg Oral tab 2 times per day [Active]; torsemide 20 mg Oral tab 1 tab once daily [Active]; trazodone 50 mg Oral tab daily [Active]; Xarelto 15 mg Oral tab daily [Active]; - PMHx: 13:50 Dialysis; GI Bleed; ESRD; Hypertension; Stomach ulcer; - PSHx: 13:50 None; - Immunization history:: Adult Immunizations up to date. - Social history:: Smoking status: Patient denies any tobacco usage or history of. Patient/guardian denies using alcohol. ROS: 15:41 Constitutional: Negative for fever, chills, and weight loss, Eyes: Negative for injury, snw pain, redness, and discharge, ENT: Negative for injury, pain, and discharge, Neck: Negative for injury, pain, and swelling, Cardiovascular: Negative for chest pain, palpitations, and edema, Respiratory: Negative for shortness of breath, cough, wheezing, and pleuritic chest pain, Abdomen/GI: Negative for abdominal pain, nausea, vomiting, diarrhea, and constipation, : Negative for injury, bleeding, discharge, and swelling, MS/Extremity: Negative for injury and deformity, Skin: Negative for injury, rash, and discoloration, Neuro: Negative for headache, weakness, numbness, tingling, and seizure, Psych: Negative for depression, anxiety, suicide ideation, homicidal ideation, and hallucinations. 15:41 Back: Positive for pain at rest, pain with movement, of the low back area. Exam: 15:43 Head/Face: Normocephalic, atraumatic. snw 15:43 ENT: Nares patent. No nasal discharge, no septal abnormalities noted. Tympanic membranes are normal and external auditory canals are clear. Oropharynx with no redness, swelling, or masses, exudates, or evidence of obstruction, uvula midline. Mucous membranes moist. Neck: Trachea midline, no thyromegaly or masses palpated, and no cervical lymphadenopathy. Supple, full range of motion without nuchal rigidity, or vertebral point tenderness. No Meningismus. Chest/axilla: Normal chest wall appearance and motion. Nontender with no deformity. No lesions are appreciated. Cardiovascular: tacycardic irregularly irregular rate and rhythm. No gallops, murmurs, or rubs. Normal PMI, no JVD. No pulse deficits. + bilateral lower ext edema Respiratory: Lungs have equal breath sounds bilaterally, clear to auscultation and percussion. No rales, rhonchi or wheezes noted. No increased work of breathing, no retractions or nasal flaring. Abdomen/GI: Soft, non-tender, with normal bowel sounds. No distension or tympany. No guarding or rebound. No evidence of tenderness throughout. 15:43 Constitutional: The patient appears awake, anxious, pale, uncomfortable. 15:43 Eyes: Conjunctiva: pale. 15:43 Back: pain, that is moderate, that is severe, ROM is decreased, with flexion, normal spinal alignment noted, CVA tenderness, is absent, muscle spasm, is appreciated in the low back area. 15:43 Skin: Appearance: Color: pale, Temperature: warm, ecchymosis. 15:43 Neuro: Orientation: is normal, Mentation: is normal, seizure activity, is not displayed by the patient. 15:43 Psych: Behavior/mood is cooperative, Affect is animated. Vital Signs: 13:35 BP 110 / 72; Pulse 110; Resp 21; Temp 97.6; Pulse Ox 96% ; Weight 96.16 kg; Height 5 ah ft. 9 in. (175.26 cm); 14:03 BP 105 / 68; Pulse 122; Resp 17; Pulse Ox 99% on R/A; tw2 15:00 BP 99 / 70; Pulse 110; Resp 17; Pulse Ox 96% on R/A; tw2 15:48 BP 101 / 72; Pulse 113; Resp 17; Pulse Ox 97% on R/A; tw2 16:30 BP 109 / 68; Pulse 115; Resp 17; Pulse Ox 97% on R/A; tw2 17:23 BP 107 / 66; Pulse 107; Resp 17; Pulse Ox 99% on R/A; tw2 18:30 BP 119 / 82; Pulse 124; Resp 18; Pulse Ox 97% on R/A; tw2 19:00 BP 140 / 92; Pulse 130; Resp 20; Pulse Ox 98% on R/A; ea 20:31 BP 127 / 75; Pulse 127; Resp 21; Pulse Ox 100% ; ea 22:36 BP 137 / 84; Pulse 118; Resp 20; Pulse Ox 98% ; ea 13:35 Body Mass Index 31.31 (96.16 kg, 175.26 cm) ah MDM: 15:35 Patient medically screened. snw 15:58 Data reviewed: vital signs, nurses notes. Data interpreted: Pulse oximetry: on room air snw is 97 %. Interpretation: normal. Transition of care: After a detail discussion of the patient's case, care is transferred to Jeison Cao MD. 10/17 14:13 Order name: Basic Metabolic Panel; Complete Time: 15:56 snw 10/17 20:35 Interpretation: Normal except: NA 132; CRE 4.05; BUN 78; GFR 15. tw4 10/17 14:13 Order name: CBC with Diff; Complete Time: 15:47 snw 10/17 20:36 Interpretation: Normal except: WBC 14.1; RBC 3.32; HGB 9.2; HCT 28.8; RDW 19.4; LYM% tw4 5.0; GUIDO% 83.1; NEUT A 11.7; MNA 1.4. 10/17 14:13 Order name: LFT's; Complete Time: 15:56 snw 10/17 20:37 Interpretation: Normal except: AST 11; ALT 9; ALK 445; BILID 0.4; GLOB 4.1; ALB 2.2; TP tw4 6.3; A/G 0.5. 10/17 14:13 Order name: Magnesium; Complete Time: 15:56 snw 10/17 14:13 Order name: NT PRO-BNP; Complete Time: 15:56 snw 10/17 20:37 Interpretation: Normal except: NT PRO-BNP 72983. tw4 10/17 14:13 Order name: PT-INR; Complete Time: 15:47 w 10/17 20:37 Interpretation: Normal except: PT 14.6. tw4 10/17 14:13 Order name: Troponin (emerg Dept Use Only); Complete Time: 15:56 w 10/17 21:18 Order name: CBC with Automated Diff EDMS 10/17 21:18 Order name: CBC with Automated Diff EDMS 10/17 21:18 Order name: Comprehensive Metabolic Panel EDMS 10/17 21:18 Order name: Comprehensive Metabolic Panel EDMS 10/17 21:18 Order name: Protime (+INR) EDMS 10/17 21:18 Order name: Protime (+INR) EDMS 10/17 21:18 Order name: PTT, Activated Partial Thromb EDMS 10/17 14:13 Order name: XRAY Chest (1 view); Complete Time: 16:13 w 10/17 14:13 Order name: EKG; Complete Time: 14:14 10/17 14:13 Order name: Cardiac monitoring; Complete Time: 14:21 w 10/17 14:13 Order name: EKG - Nurse/Tech; Complete Time: 19:10 w 10/17 14:13 Order name: IV Saline Lock; Complete Time: 15:16 w 10/17 14:13 Order name: Labs collected and sent; Complete Time: 15:16 10/17 14:13 Order name: O2 Per Protocol; Complete Time: 14:21 w 10/17 14:13 Order name: O2 Sat Monitoring; Complete Time: 15:16 10/17 21:17 Order name: CONS Pharmacy Consult EDMS 10/17 21:18 Order name: CONS Physician Consult EDMS 10/17 21:18 Order name: Renal EDMS 10/17 21:18 Order name: PTT, Activated Partial Thromb EDMS 10/17 21:19 Order name: Chest Single View EDMS 10/17 21:19 Order name: Chest Single View EDMS Administered Medications: 14:30 Drug: [place] 5 mg-325 mg 1 tabs Route: PO; tw2 19:00 Follow up: Response: No adverse reaction ea 14:30 Drug: Valium 5 mg Route: PO; tw2 19:00 Follow up: Response: No adverse reaction ea Disposition: 10/18 06:59 Co-signature as Attending Physician, Trino Ramos MD I agree with the assessment and tw4 plan of care. Disposition: 10/18/19 20:45 Hospitalization ordered by Alvina Sepulveda for Inpatient Admission. Preliminary diagnosis are Chronic kidney disease, stage 5, Chronic pain, not elsewhere classified. - Bed requested for Telemetry/MedSurg (Inpatient). - Status is Inpatient Admission. ea - Condition is Fair. - Problem is an ongoing problem. - Symptoms are unchanged. Signatures: Dispatcher [employer] EDWY Brielle White, ENTERPRISE INTEGRATION ARCHITECT-C ENTERPRISE INTEGRATION ARCHITECT-Csnw Blanca Rice, RN RN tw2 Nathaly Leija RN Reynaldo Singh ea, RN RN ja1 Trino Ramos MD MD tw4 Penny Call, RN RN Corrections: (The following items were deleted from the chart) 10/17 21:51 20:45 Hospitalization Ordered by Alvina Sepulveda MD for Inpatient Admission. Preliminary ja1 diagnosis is Chronic kidney disease, stage 5; Chronic pain, not elsewhere classified. Bed requested for Telemetry/MedSurg (Inpatient). Status is Inpatient Admission. Condition is Fair. Problem is an ongoing problem. Symptoms are unchanged. tw4 23:00 21:51 10/18/2019 20:45 Hospitalization Ordered by Alvina Sepulveda MD for Inpatient ea Admission. Preliminary diagnosis is Chronic kidney disease, stage 5; Chronic pain, not elsewhere classified. Bed requested for Telemetry/MedSurg (Inpatient). Status is Inpatient Admission. Condition is Fair. Problem is an ongoing problem. Symptoms are unchanged. ja1
[2019-10-18] MEDS ORDERED: ONDANSETRON 4 MG/2 ML VIAL IV PRN (21:14)
[2019-10-18] MEDS ORDERED: ACETAMINOPHEN 500 MG TAB PO PRN (21:14)
[2019-10-18] MEDS ORDERED: FENTANYL CITR 100 MCG/2 ML IV ONE (23:24)
[2019-10-18] MEDS ORDERED: DIGOXIN 0.25 MG/ML AMP IV ONE (23:24)
[2019-10-19 00:19] VITALS: BMI 31.3
[2019-10-19] MEDS ORDERED: DIPHENHYDRAMINE 50 MG/ML VIAL IV ONE (00:34)
[2019-10-19] MEDS: MORPHINE 2 MG/ML SYR IV PRN ×3 (03:13→18:29)
[2019-10-19 04:20] LABS: Absolute Lymphocytes (CBC) 0.5 K/uL (0.7-4.9); Basophils % 0.8 % (0-1.3); Hematocrit 24.5 % (39.6-49.0); Lymphocytes % 3.4 % (15.3-44.8); MPV 8.5 fL (7.6-11.3); RBC Red Blood Cell Count 2.86 M/uL (4.33-5.43)
[2019-10-19 04:21] LABS: Protime INR 1.31
[2019-10-19 04:35] LABS: Bilirubin Total 1.1 mg/dL (0.2-1.0); Potassium 4.9 mmol/L (3.5-5.1); Protein, Total 5.9 g/dL (6.4-8.2)
[2019-10-19 05:15] LABS: Anisocytosis 1+; Blood Morphology Comment NOTED (NOT SEEN); Ovalocytes 1+; Platelet Estimate ADEQ
--- NOTE | 2019-10-19 08:33 | RAD REPORT ---
EXAM DESCRIPTION: RAD - Chest Single View - 10/19/2019 6:20 am CLINICAL HISTORY: Dyspnea Chest pain. COMPARISON: Chest Single View dated 10/18/2019; Chest Pa And Lat (2 Views) dated 06/29/2019; Chest Pa And Lat (2 Views) dated 11/09/2018; Chest Single View dated 07/31/2018 FINDINGS: Portable technique limits examination quality. The lungs are grossly clear. Prominent cardiomegaly is noted. Right-sided venous catheter is in place . IMPRESSION: Stable chest since 10/18/2019.
--- NOTE | 2019-10-19 08:36 | P.HP ---
Certification for Inpatient Patient admitted to: Observation With expected LOS: <2 Midnights Patient will require the following post-hospital care: None Practitioner: I am a practitioner with admitting privileges, knowledge of patient current condition, hospital course, and medical plan of care. Services: Services provided to patient in accordance with Admission requirements found in Title 42 Section 412.3 of the Code of Federal Regulations Patient History Date of Service: 10/18/19 Reason for admission: Noncompliance with dialysis and medications; pulmonary edema History of Present Illness: Patient is a 74-year-old gentleman who came to the hospital with shortness of breath and generalized body aches. Patient is on oxycodone for pain at home. Patient also has a history of atrial fibrillation and is on metoprolol and Eliquis which I am uncertain if he has been taking. Patient has not been going to dialysis since last Thursday. He has missed 3 courses of his hemodialysis. Patient came into the hospital for further evaluation. Patient get an echocardiogram and will also add digoxin to control heart rate. Will continue with the Lopressor. Monitor his H&H and hold off on Eliquis. Patient will be admitted to the hospital for further evaluation. Allergies No Known Allergies Allergy (Verified 11/06/18 11:17) Home Medications: Allopurinol 100 mg PO DAILY 10/19/19 Apixaban [Eliquis *] 2.5 mg PO BID 10/19/19 Metolazone [Zaroxolyn] 5 mg PO DAILY 10/19/19 Metoprolol Tartrate 100 mg PO BID 10/19/19 Oxycodone HCl/Acetaminophen [Oxycodon-Acetaminophen 7.5-325] 1 tab PO TID PRN 10/19/19 Torsemide [Demadex*] 20 mg PO BID 10/19/19 Trazodone [Desyrel*] 50 mg PO BEDTIME PRN 10/19/19 - Past Medical/Surgical History Has patient received pneumonia vaccine in the past: Yes Diabetic: No -: HTN -: HISTORY OF [place] -: HISTORY OF CAD WITH STENTS -: Liver cirrhosis -: HEART STENTS -: R. foot sx - screws in big toe - Family History Father Family History: Reviewed- Non-Contributory - Social History Smoking Status: Former smoker Alcohol use: No CD- Drugs: No Caffeine use: Yes Place of Residence: Home Review of Systems 10-point ROS is otherwise unremarkable Physical Examination - Vital Signs Temperature: 97.1 F Blood Pressure: 102/60 Pulse: 116 Respirations: 19 Pulse Ox (%): 98 - Physical Exam General: Alert, In no apparent distress, Oriented x3 HEENT: Atraumatic, PERRLA, Mucous membr. moist/pink, EOMI, Sclerae nonicteric Neck: Supple, 2+ carotid pulse no bruit, No LAD, Without JVD or thyroid abnormality Respiratory: Clear to auscultation bilaterally, Normal air movement Cardiovascular: Regular rate/rhythm, Normal S1 S2, Systolic murmur Gastrointestinal: Normal bowel sounds, Soft and benign, Non-distended, No tenderness Musculoskeletal: No clubbing, No swelling, No tenderness Integumentary: No rashes Neurological: Normal speech, Normal tone, Sensation intact, Cranial nerves 3-12 intact, Normal affect, Abnormal strength Lymphatics: No axilla or inguinal lymphadenopathy - Studies Laboratory Data (last 24 hrs) 10/18/19 14:50: PT 14.6 H, INR 1.24 10/18/19 14:50: WBC 14.1 H, Hgb 9.2 L, Hct 28.8 L, Plt Count 192 10/18/19 14:50: Sodium 132 L, Potassium 4.5, BUN 78 H, Creatinine 4.05 H, Glucose 106, Magnesium 2.4, Total Bilirubin 1.0, AST 11 L, ALT 9 L, Alkaline Phosphatase 445 H Assessment & Plan - Problems (Diagnosis) (1) Noncompliance of patient with renal dialysis Current Visit: Yes Status: Acute (2) Noncompliance with medications Current Visit: Yes Status: Acute (3) Pulmonary edema Current Visit: Yes Status: Acute (4) Atrial fibrillation with rapid ventricular response Current Visit: Yes Status: Acute (5) Chronic anticoagulation Current Visit: No Status: Acute (6) History of [place] (myocardial infarction) Current Visit: No Status: Acute (7) History of heart artery stent Current Visit: No Status: Acute (8) Cirrhosis, alcoholic Current Visit: No Status: Chronic Qualifiers: (9) Hypertension Current Visit: No Status: Chronic Qualifiers: Hypertension type: essential hypertension Qualified Code(s): I10 - Essential (primary) hypertension - Plan Plan: 1. Nephrology consultation for hemodialysis 2. Monitor H&H 3. Continue beta-toy for rate control and give 1 dose of digoxin 4. Continue pain medication for chronic pain syndrome 5. PT evaluation if patient having difficulty with ambulating 6. Possible discharge home later today if patient does well after hemodialysis 7. GI and DVT prophylaxis Discharge Plan: Home Plan to discharge in: 48 Hours - Advance Directives Does patient have a Living Will: Yes Does patient have a Durable POA for Healthcare: Yes - Code Status/Comfort Care Code Status Assessed: Yes Code Status: Full Code Critical Care: No Time Spent Managing PTS Care (In Minutes): 45
--- NOTE | 2019-10-19 08:38 | P.PN ---
Subjective Date of Service: 10/19/19 Patient continues to improve with no new complaints. Still having pain. Heart rate is still elevated. Hemoglobin dropped to 8.0. Repeat H&H in type and screen. If hemoglobin drops again than will transfuse during hemodialysis. Continue with chronic pain control and do an echocardiogram as well as hold E liquis. Review of Systems 10-point ROS is otherwise unremarkable Physical Examination - Vital Signs Temperature: 97.1 F Blood Pressure: 102/60 Pulse: 116 Respirations: 19 Pulse Ox (%): 98 - Physical Exam General: Alert, In no apparent distress, Oriented x3 Respiratory: Clear to auscultation bilaterally, Normal air movement Cardiovascular: Regular rate/rhythm, Normal S1 S2, No murmurs Gastrointestinal: Normal bowel sounds, Soft and benign, Non-distended, No tenderness Musculoskeletal: No clubbing, No swelling, No tenderness Integumentary: No rashes - Studies Laboratory Data (last 24 hrs) 10/18/19 14:50: PT 14.6 H, INR 1.24 10/18/19 14:50: WBC 14.1 H, Hgb 9.2 L, Hct 28.8 L, Plt Count 192 10/18/19 14:50: Sodium 132 L, Potassium 4.5, BUN 78 H, Creatinine 4.05 H, Glucose 106, Magnesium 2.4, Total Bilirubin 1.0, AST 11 L, ALT 9 L, Alkaline Phosphatase 445 H Medications List Reviewed: Yes Assessment & Plan - Problems (Diagnosis) (1) Noncompliance of patient with renal dialysis Current Visit: Yes Status: Acute (2) Noncompliance with medications Current Visit: Yes Status: Acute (3) Pulmonary edema Current Visit: Yes Status: Acute (4) Atrial fibrillation with rapid ventricular response Current Visit: Yes Status: Acute (5) Chronic anticoagulation Current Visit: No Status: Acute (6) History of AR (myocardial infarction) Current Visit: No Status: Acute (7) History of heart artery stent Current Visit: No Status: Acute (8) Cirrhosis, alcoholic Current Visit: No Status: Chronic Qualifiers: (9) Hypertension Current Visit: No Status: Chronic Qualifiers: Hypertension type: essential hypertension Qualified Code(s): I10 - Essential (primary) hypertension - Plan Plan: Continue with current plan of care as mentioned below 1. Nephrology consultation for hemodialysis 2. Monitor H&H 3. Continue beta-toy for rate control and give 1 dose of digoxin 4. Continue pain medication for chronic pain syndrome 5. PT evaluation if patient having difficulty with ambulating 6. Possible discharge home later today if patient does well after hemodialysis 7. GI and DVT prophylaxis Discharge Plan: Home Plan to discharge in: 48 Hours - Advance Directives Does patient have a Living Will: Yes Does patient have a Durable POA for Healthcare: Yes - Code Status/Comfort Care Code Status: Full Code Critical Care: No Time Spent Managing PTS Care (In Minutes): 30
[2019-10-19] MEDS ORDERED: TORSEMIDE 20 MG TAB PO SCH (09:00)
[2019-10-19] MEDS ORDERED: CEFTRIAXONE/SWI 1gm 1 GM/10 ML SYR IV SCH (09:00)
[2019-10-19] MEDS: Oxycodone HCl/Acetaminophen 1 TAB TAB PO PRN ×2 (10:51→22:08)
[2019-10-19] MEDS: METOPROLOL TAR 50 MG TAB PO SCH ×2 (10:53→22:08)
[2019-10-19] MEDS: METOLAZONE 5 MG TABLET PO SCH (10:53)
[2019-10-19] MEDS: allopurinoL 100 MG TAB PO SCH (10:53)
[2019-10-19] MEDS: DIGOXIN 0.25 MG/ML AMP IV SCH ×2 (10:56→18:28)
[2019-10-19 11:09] LABS: Absolute Lymphocytes (CBC) 0.6 K/uL (0.7-4.9); Basophils % 0.9 % (0-1.3); Hematocrit 26.3 % (39.6-49.0); Lymphocytes % 5.3 % (15.3-44.8); MPV 8.9 fL (7.6-11.3); RBC Red Blood Cell Count 3.04 M/uL (4.33-5.43)
[2019-10-19 12:33] LABS: Blood Morphology Comment NOTED (NOT SEEN); Ovalocytes 1+; Platelet Estimate ADEQ
[2019-10-19] MEDS ORDERED: EPOETIN 4,000 UNIT/ML VIAL IV SCH (13:15)
[2019-10-19] MEDS ORDERED: ALBUMIN HUMAN 25% 50 ML IV SCH (15:00)
--- NOTE | 2019-10-19 15:17 | CON ---
Date of Consultation: 10/19/2019 Reason For Consultation: Elevated BUN and creatinine, over volume. History Of Present Illness: This is a pleasant 74-year-old gentleman, well known to me from dialysis with significant past medical history of hypertension, hyperlipidemia, coronary carotid artery disea se with atrial fibrillation, congestive heart failure. Patient had chronic low back pain apparently, patient did not access his pain medication for that reason, could not ambulate, could not attend the dialysis for the last whole week. Patient started having shortness of breath with increased leg swe lling, generalized fatigue, difficulty ambulating. For that reason called EMS and brought to the [facility], found to have elevation in BUN and creatinine, over volume. For that reason, we have been con sulted. Patient denied any other symptoms. Patient is not sure about taking his anticoagulation. Allergies: NO KNOWN DRUG ALLERGIES. Home Medications: 1.Allopurinol. 2.Eliquis. 3.Metolazone 5 mg. 4.Metoprolol. 5.Torsemide 20 b.i.d. 6.Trazodone. Past Medical History: 1.Hypertension. 2.Coronary artery disease status post CT complicated with congestive heart failure status post PTCA. 3.Atrial fibrillation. 4.Liver cirrhosis. Past Surgical History: 1.PermCath placement. 2.Right foot surgery. Family History: Positive for hypertension. Social History: Lives with family. Ex-smoker. Denied alcohol. Denied drug abuse. Review of Systems: Head and Neck: No red eye. No ear pain. GI: No nausea, no vomiting. : No polyuria, no dysuria, no hematuria. VETERANS REHABILITATION COUNSELOR: Not applicable. Respiratory: Has shortness of breath. Cardiovascular: Has chest tightness. Endocrine: No polydipsia. Skin: No rash. Neuro: Has neuropathy, has low back pain. Musculoskeletal: Has low back pain, difficulty ambulating. Physical Examination: General: When I saw the patient, patient was lying in bed. Vital Signs: Blood pressure of 137/66, pulse of 111, regular. Chest: Crackles bilateral. Heart: S1, S2. Systolic murmur. Regular. Abdomen: Soft, nontender. Extremities: +2 edema. Neurologic: Alert, not moving. Laboratory Data: WBC 12.2, H and H 8.4/26.3, platelets 178. Sodium 133, potassium 4.9, bicarb 23, B UN 74, creatinine 3.9, GFR of 15, calcium 8.5. BNP 32,000. Imaging Studies: Chest x-ray; cardiomegaly with congestion. Assessment And Plan: 1.End-stage renal disease with over volume. I am going to go ahead and arrange for urgent dialysis. In the meantime, patient is nonoliguric. We will discontinue torsemide to start the patient on [place] 80 b.i.d. and we will monitor. Patient mostly is going to need another session of dialysis tomorr ow. 2.Hypertension. We will utilize blood pressure for more ultrafiltration. 3.Anemia of chronic kidney disease. Resume VU. 4.Secondary hyperpara. We will follow up lab. 5.Congestive heart failure with exacerbation. We will establish better volume control with ultrafil tration and diuresis. 6.Hyponatremia, going to be corrected with dialysis, mostly dilutional secondary to congestive heart failure. 7.Coronary artery disease with congestive heart failure as above. 8.Diabetes as by primary. IBETH/ABI Voice ID: [id number] Report ID: [id number]
[2019-10-19] MEDS: FUROSEMIDE 40 MG/4 ML VIAL IV SCH (18:28)
[2019-10-19] MEDS: OXYCODONE HCL 5 MG TAB PO PRN (22:08)
[2019-10-19] MEDS: TRAZODONE 50 MG TABLET PO PRN (22:08)
--- NOTE | 2019-10-20 02:52 | P.DS ---
Discharge Date: 10/20/19 Disposition: ROUTINE DISCHARGE Discharge Condition: GOOD Reason for Admission: Noncompliance with dialysis and medications; pulmonary edema Consultations: Entrepreneurship Program Director - Problems (1) Noncompliance of patient with renal dialysis Current Visit: Yes Status: Acute (2) Noncompliance with medications Current Visit: Yes Status: Acute (3) Pulmonary edema Current Visit: Yes Status: Acute (4) Atrial fibrillation with rapid ventricular response Current Visit: Yes Status: Acute (5) Chronic anticoagulation Current Visit: No Status: Acute (6) History of [place] (myocardial infarction) Current Visit: No Status: Acute (7) History of heart artery stent Current Visit: No Status: Acute (8) Cirrhosis, alcoholic Current Visit: No Status: Chronic Qualifiers: (9) Hypertension Current Visit: No Status: Chronic Qualifiers: Hypertension type: essential hypertension Qualified Code(s): I10 - Essential (primary) hypertension Brief History of Present Illness: Patient is a 74-year-old gentleman who came to the hospital with shortness of breath and generalized body aches. Patient is on oxycodone for pain at home. Patient also has a history of atrial fibrillation and is on metoprolol and Eliquis which I am uncertain if he has been taking. Patient has not been going to dialysis since last Thursday. He has missed 3 courses of his hemodialysis. Patient came into the hospital for further evaluation. Patient get an echocardiogram and will also add digoxin to control heart rate. Will continue with the Lopressor. Monitor his H&H and hold off on Eliquis. Patient will be admitted to the hospital for further evaluation. Vital Signs/Physical Exam: Temp Pulse Resp BP Pulse Ox 97.8 F 92 H 20 101/51 L 98 10/20/19 00:00 10/20/19 00:00 10/20/19 00:00 10/20/19 00:00 10/20/19 00:00 General: Alert, In no apparent distress, Oriented x3 Laboratory Data at Discharge: WBC 12.2 K/uL (4.3-10.9) H 10/19/19 10:49 Hgb 8.4 g/dL (13.6-17.9) L 10/19/19 10:49 Hct 26.3 % (39.6-49.0) L 10/19/19 10:49 Plt Count 178 K/uL (152-406) 10/19/19 10:49 PT 15.4 SECONDS (9.5-12.5) H 10/19/19 03:50 INR 1.31 10/19/19 03:50 APTT 33.8 SECONDS (24.3-36.9) 10/19/19 03:50 Sodium 133 mmol/L (136-145) L 10/19/19 03:50 Potassium 4.9 mmol/L (3.5-5.1) 10/19/19 03:50 BUN 74 mg/dL (7-18) H 10/19/19 03:50 Creatinine 3.98 mg/dL (0.55-1.3) H 10/19/19 03:50 Glucose 98 mg/dL (74-106) 10/19/19 03:50 Magnesium 2.4 mg/dL (1.8-2.4) 10/18/19 14:50 Total Bilirubin 1.1 mg/dL (0.2-1.0) H 10/19/19 03:50 AST 11 U/L (15-37) L 10/19/19 03:50 ALT 8 U/L (12-78) L 10/19/19 03:50 Alkaline Phosphatase 380 U/L (45-117) H 10/19/19 03:50 Home Medications: Allopurinol 100 mg PO DAILY 10/19/19 Apixaban [Eliquis *] 2.5 mg PO BID 10/19/19 Metolazone [Zaroxolyn] 5 mg PO DAILY 10/19/19 Metoprolol Tartrate 100 mg PO BID 10/19/19 Oxycodone HCl/Acetaminophen [Oxycodon-Acetaminophen 7.5-325] 1 tab PO TID PRN 10/19/19 Torsemide [Demadex*] 20 mg PO BID 10/19/19 Trazodone [Desyrel*] 50 mg PO BEDTIME PRN 10/19/19 Patient Discharge Instructions: OK TO DC IV AND DC HOME. FOLLOW-UP WITH PRIMARY CARE PROVIDER IN 1-2 WEEKS. FOLLOW-UP WITH data coder operator and pain specialist. OUTPATIENT HEMODIALYSIS IN 48 HRS. RETURN TO THE ER IF symptoms worsen. CALL or TEXT DR. CHEN AT [phone] IF ANY QUESTIONS REGARDING HOSPITAL STAY. PLEASE CALL THE FLOOR AT [phone] IF ANY MEDICATION OR NURSING QUESTIONS. Diet: Renal Activity: Fall precautions
[2019-10-20 07:11] LABS: Basophils % 1.4 % (0-1.3); Hematocrit 29.5 % (39.6-49.0); Lymphocytes % 7.9 % (15.3-44.8); MPV 8.5 fL (7.6-11.3)
[2019-10-20 07:12] LABS: Magnesium 2.3 mg/dL (1.8-2.4); Phosphorus 4.3 mg/dL (2.5-4.9); Potassium 4.4 mmol/L (3.5-5.1)
[2019-10-20] MEDS: METOPROLOL TAR 50 MG TAB PO SCH (08:13)
[2019-10-20] MEDS: FUROSEMIDE 40 MG/4 ML VIAL IV SCH ×2 (08:13→17:00)
[2019-10-20] MEDS: allopurinoL 100 MG TAB PO SCH (08:13)
[2019-10-20] MEDS: METOLAZONE 5 MG TABLET PO SCH (08:13)
[2019-10-20] MEDS ORDERED: dexAMETHasone 4 MG/ML VIAL IV ONE (08:18)
[2019-10-20] MEDS ORDERED: FENTANYL 50 MCG/PATCH TD SCH (09:00)
[2019-10-20] MEDS: Oxycodone HCl/Acetaminophen 1 TAB TAB PO PRN (12:02)
[2019-10-20] MEDS: OXYCODONE HCL 5 MG TAB PO PRN (12:02)
[2019-10-20] MEDS ORDERED: LACTULOSE 20 GM/30 ML UCUP PO PRN (12:47)
[2019-10-20 13:28] LABS: Arterial Blood Carboxyhemoglob 2.4 % (0-1.5); Blood Gas Oxyhemoglobin 92.4 % (94-97); Blood O2 Saturation 95.8 % (92-98.5)
--- NOTE | 2019-10-20 15:04 | ECHO ---
HEIGHT: 5 ft 9 in WEIGHT: 212 lb 0 oz DATE OF STUDY: 10/20/[address]: Alvina Sepulveda MD 2-DIMENSIONAL: YES M.MODE: YES DOPPLER: YES COLOR FLOW: YES TDS: NO PORTABLE: NO DEFINITY: NO BUBBLE STUDY: NO DIAGNOSIS: ATRIAL FIBRILLATION WITH RAPID VENTRICULAR RESPONSE CARDIAC HISTORY: CATHERIZATION: NO SURGERY: NO PROSTHETIC VALVE: NO PACEMAKER: NO MEASUREMENTS (cm) DIASTOLIC (NORMALS) SYSTOLIC (NORMALS) IVSd 1.2 (0.6-1.2) LA Diam 5.3 (1.9-4.0) LVEF 63% LVIDd 5.0 (3.5-5.7) LVIDs 3.3 (2.0-3.5) %FS 34% LVPWd 1.3 (0.6-1.2) Ao Diam 3.2 (2.0-3.7) 2 DIMENSIONAL ASSESSMENT: RIGHT ATRIUM: ENLARGED, CHIARI NETWORK LEFT ATRIUM: ENLARGED RIGHT VENTRICLE: NORMAL LEFT VENTRICLE: NORMAL EJECTION FRACTION TRICUSPID VALVE: NORMAL MITRAL VALVE: MITRAL ANNULAR CALICIFICATION, MODERATE MITRAL REGURGITATION PULMONIC VALVE: NOT SEEN WELL AORTIC VALVE: CALCIFIED, MILD AORTIC INSUFFICIENCY PERICARDIAL EFFUSION: NONE AORTIC ROOT: NORMAL LEFT VENTRICULAR WALL MOTION: ATRIAL FIBRILLATION. NORMAL LEFT VENTRICULAR EJECTION FRACTION 55-60%. DOPPLER/COLOR FLOW: COMMENTS: NORMAL LEFT VENTRICULAR EJECTION FRACTION 55-60%. MODERATE MITRAL REGURGITATION WITH MODERATE MITRAL ANNULAR CALICIFICATION. CALCIFIED AORTIC VALVE WITH NO STENOSIS, FOCAL THICKENING THAT IS MOBILE IN THE RIGHT CLINICAL SETTING COULD BE VEGATATION. MILD AORTIC INSUFFICIENCY. SEVERE BILATERAL ATRIAL ENLARGEMENT. AT LEAST MODERATE DIASTOLIC DYSFUNCTION WITH ELEVATED FILLING PRESSURES. PROMINENT CHIARI NETWORK IN THE RIGHT ATRIUM. TECHNOLOGIST: Adilia JOHNSON
--- NOTE | 2019-10-20 16:32 | PN ---
Date of Progress Note: 10/20/2019 Patient was admitted with over volume. Patient was dialyzed yesterday. Patient had low blood pressu re on dialysis. Patient still has difficulty ambulating because he has low back pain. Today, patiheavenly rowland is still complaining from low back pain. Could not ambulate. Physical Examination: Vital Signs: Blood pressure 109/58, pulse of 83, afebrile. Patient had 1500 of ultrafiltration and urine output of 220. Chest: Crackles, more prominent left base. Heart: S1, S2. Systolic murmur. Abdomen: Soft, nontender. Extremities: +1 edema. Neurologic: Alert. No focality. Laboratory Data: WBC 12.3, H and H 9.7/29.5, platelets 224. Sodium 138, potassium 4.4, bicarb 25, B UN 38, creatinine 2.5, calcium 8.8, phosphorus 4.3, magnesium 2.3. Current Medications: The patient on include: 1.Phenergan. 2.Epogen. 3.Metoprolol 100 b.i.d. 4.Trazodone. 5.Tylenol. 6.Lasix 80 b.i.d. 7.Metolazone. 8.Dexamethasone. 9.Allopurinol. Assessment And Plan: 1.End-stage renal disease, over volume, currently close to normal volume. Patient on room air. I c an skip the dialysis today. We will consider dialysis tomorrow and we will follow up the patient. 2.Hypertension, currently blood pressure on the lower side. I am going to decrease metoprolol to 25 . We will utilize blood pressure for more diuresis and ultrafiltration. 3.Over volume. We will try to establish better volume control with ultrafiltration. Patient is goi ng to be dialyzed on sodium module. Continue diuresis. 4.Low back pain, difficulty ambulating. Start the patient on fentanyl. 5.Hypertension with incident of low blood pressure on dialysis. We will decrease metoprolol to 25 m g. IBETH/ABI Voice ID: [id number] Report ID: [id number]
[2019-10-20] MEDS ORDERED: NA CHLORIDE 0.9% 250 ML ONE (17:42)
[2019-10-20] MEDS ORDERED: NA CHLORIDE 0.9% 250 ML IV ONE (18:00)
[2019-10-20] MEDS: LACTULOSE 20 GM/30 ML UCUP PO SCH (20:27)
[2019-10-20] MEDS: TRAZODONE 50 MG TABLET PO PRN (20:28)
[2019-10-20] MEDS ORDERED: METOPROLOL TAR 25 MG TAB PO SCH (21:00)
--- NOTE | 2019-10-20 22:13 | P.PN ---
Subjective Date of Service: 10/20/19 Chief Complaint: WEAKNESS Subjective: C/O voiced MR. MG IS A CKD 5 PATIENT ON HD WHO HAS NOT HAD DIALYSIS FOR A FEW DAYS HE IS NOT COMPLIANT. HE HAS SEVERE BACK PAIN AND HAS BEEN TO PAIN MD WITH NO HELP. HE IS CONFUSED AND THAT IS NOT USUAL WITH HIM. HE HAS NO FEVER, NAUSEA OR VOMITING. CALLED ME TODAY I WAS NEVER CALLED BY ER DOCTOR. HE IS MY PATIENT BUT WRONGLY ADMITTED TO HOSPITALIST STAFF. I AM CANCELING DISCHARGE HE IS STILL ACTIVE. I SEE ON LAB REVIEW THAT HE HAS LEUKOCYTOSIS, HIGH PROCALCITONIN AND THAT NEEDS TO BE FOLLOWED UP. Review of Systems 10-point ROS is otherwise unremarkable General: Weakness, Malaise Physical Examination - Vital Signs Temperature: 97.9 F Blood Pressure: 89/50 Pulse: 67 Respirations: 20 Pulse Ox (%): 98 - Physical Exam General: Alert, Mild distress, Moderate distress HEENT: Atraumatic, PERRLA, EOMI Neck: Supple, JVD not distended Respiratory: Clear to auscultation bilaterally, Normal air movement Cardiovascular: Regular rate/rhythm, Normal S1 S2 Gastrointestinal: Tenderness (DIFFUSE ABDOMEN TENDERNESS.) Musculoskeletal: No tenderness Integumentary: No rashes Neurological: Normal speech, Normal tone, Normal affect Lymphatics: No axilla or inguinal lymphadenopathy - Studies Laboratory Data (last 24 hrs) 10/20/19 06:46: Sodium 138, Potassium 4.4, BUN 39 H D, Creatinine 2.58 H D, Glucose 82, Phosphorus 4.3, Magnesium 2.3 10/20/19 06:46: WBC 12.3 H, Hgb 9.7 L, Hct 29.5 L, Plt Count 224 D Medications List Reviewed: Yes Assessment And Plan - Current Problems (Diagnosis) (1) Abdominal tenderness Current Visit: Yes Status: Acute Plan: HE IS TENDER ON EXAMINATION. HE HAS SIGNS OF INFECTION HPI. DO TWO BLOOD CULTURES AND UA UCS IF HE HAS OUTPUT . CT ABDOMEN WITH CONTRAST. MRI OF LS SPINE IT IS SOURCE OF SEVERE PAIN. START CIPRO AND FLAGYL POSSIBLE DIVERTICULITIS. Qualifiers: Abdominal location: generalized (2) Altered mental status Current Visit: Yes Status: Acute Plan: AMMONNIA AND ABG ARE GOOD. THIS CAN BE FROM INFECTION , SEPSIS ETC. HE CARRIES POOR PROGNOSIS HE HAS BEEN HEAVY DRINKER AND NOW HE HAS MANY COMPLICATIONS. Qualifiers: Altered mental status type: disorientation Qualified Code(s): R41.0 - Disorientation, unspecified (3) Intractable back pain Current Visit: Yes Status: Chronic Plan: ORDER MRI LS SPINE. (4) CKD (chronic kidney disease) stage 5, GFR less than 15 ml/min Current Visit: Yes Status: Chronic Plan: BACK ON HD. I TLAKED TO TODAY. SHE CAN'T TAKE CARE OF HIM. SHE WANTS GROUP HOME. (5) Pulmonary edema Current Visit: Yes Status: Acute Plan: SECONDARY TO CKD AND MISSED HD. Qualifiers: Chronicity: acute Qualified Code(s): J81.0 - Acute pulmonary edema (6) Leukocytosis Current Visit: No Status: Acute Plan: ABOVE. Qualifiers: Leukocytosis type: bandemia Qualified Code(s): D72.825 - Bandemia (7) Alcoholic cirrhosis Current Visit: Yes Status: Chronic Plan: HE IS IN POOR CONDITION FROM MULTI SYSTEM COMPLICATIONS. IS AWARE OF OPTIONS. Qualifiers: Ascites presence: with ascites Qualified Code(s): K70.31 - Alcoholic cirrhosis of liver with ascites
[2019-10-21] MEDS: LACTULOSE 20 GM/30 ML UCUP PO SCH ×2 (01:43→09:00)
[2019-10-21] MEDS: METRONIDAZOLE 500mg IVPB 500 MG/100 ML BAG IV SCH ×2 (01:44→09:55)
[2019-10-21] MEDS: MORPHINE 2 MG/ML SYR IV PRN ×2 (01:44→14:13)
[2019-10-21 02:48] LABS: Urine Appearance CLOUDY; Urine Blood 1+ (NEG); Urine Color DK YELLOW; Urine Glucose NEGATIVE (NEG); Urine Protein NEGATIVE (NEG); Urine Specific Gravity 1.015 (1.005-1.030)
[2019-10-21 03:25] LABS: Urine Bilirubin NEGATIVE (NEG)
[2019-10-21 03:34] LABS: Urine Amorphous Sediment 1+ /HPF (NONE SEEN); Urine Bacteria >50 /HPF (NONE SEEN); Urine Culture Reflex Order REFLEXED
[2019-10-21 06:18] LABS: Absolute Lymphocytes (CBC) 1.3 K/uL (0.7-4.9); Basophils % 1.5 % (0-1.3); Hematocrit 28.3 % (39.6-49.0); Lymphocytes % 6.9 % (15.3-44.8); MPV 8.7 fL (7.6-11.3); RBC Red Blood Cell Count 3.16 M/uL (4.33-5.43)
[2019-10-21 07:03] LABS: Potassium 4.7 mmol/L (3.5-5.1)
[2019-10-21 08:15] LABS: Blood Morphology Comment NOT SEEN (NOT SEEN); Platelet Estimate ADEQ; Urine White Blood Cell Casts OK
--- NOTE | 2019-10-21 08:41 | P.PN ---
Subjective Date of Service: 10/21/19 Chief Complaint: WEAKNESS Subjective: Worsening MR. MG IS A CKD 5 PATIENT ON HD WHO HAS NOT HAD DIALYSIS FOR A FEW DAYS HE IS NOT COMPLIANT. HE HAS SEVERE BACK PAIN AND HAS BEEN TO PAIN MD WITH NO HELP. HE IS CONFUSED AND THAT IS NOT USUAL WITH HIM. HE HAS NO FEVER, NAUSEA OR VOMITING. CALLED ME TODAY I WAS NEVER CALLED BY ER DOCTOR. HE IS MY PATIENT BUT WRONGLY ADMITTED TO HOSPITALIST STAFF. I AM CANCELING DISCHARGE HE IS STILL ACTIVE. I SEE ON LAB REVIEW THAT HE HAS LEUKOCYTOSIS, HIGH PROCALCITONIN AND THAT NEEDS TO BE FOLLOWED UP. HE IS STILL THE SAME. HE HAS SEVERE BACK PAIN. ALSO ABDOMEN PAIN. DISORIENTS EASILY. Review of Systems 10-point ROS is otherwise unremarkable General: Weakness, Malaise Physical Examination - Vital Signs Temperature: 98.3 F Blood Pressure: 109/57 Pulse: 74 Respirations: 20 Pulse Ox (%): 93 - Physical Exam General: Alert, Moderate distress HEENT: Atraumatic, PERRLA, EOMI Neck: Supple, JVD not distended, Other (NECK IS STIFFER TODAY, HE CAN'T BEND IT. ) Respiratory: Clear to auscultation bilaterally, Normal air movement Cardiovascular: Regular rate/rhythm, Normal S1 S2 Gastrointestinal: Normal bowel sounds, No tenderness Musculoskeletal: No tenderness Integumentary: No rashes Neurological: Normal speech, Normal tone, Normal affect Lymphatics: No axilla or inguinal lymphadenopathy - Studies Medications List Reviewed: Yes Assessment And Plan - Current Problems (Diagnosis) (1) Abdominal tenderness Current Visit: Yes Status: Acute Plan: HE IS TENDER ON EXAMINATION. HE HAS SIGNS OF INFECTION HPI. DO TWO BLOOD CULTURES AND UA UCS IF HE HAS OUTPUT . CT ABDOMEN WITH CONTRAST. MRI OF LS SPINE IT IS SOURCE OF SEVERE PAIN. START CIPRO AND FLAGYL POSSIBLE DIVERTICULITIS. FAMILY SO FAR IS REFUSING ANY TESTING HIS PROGNOSIS IS POOR. Qualifiers: Abdominal location: generalized (2) Altered mental status Current Visit: Yes Status: Acute Plan: AMMONNIA AND ABG ARE GOOD. THIS CAN BE FROM INFECTION , SEPSIS ETC. HE CARRIES POOR PROGNOSIS HE HAS BEEN HEAVY DRINKER AND NOW HE HAS MANY COMPLICATIONS. HIS STIFF NECK PROMPTS ME TO GET SPINAL TAP BUT FAMILY SO FAR IS REFUSING. Qualifiers: Altered mental status type: disorientation Qualified Code(s): R41.0 - Disorientation, unspecified (3) Intractable back pain Current Visit: Yes Status: Chronic Plan: ORDER MRI LS SPINE. (4) CKD (chronic kidney disease) stage 5, GFR less than 15 ml/min Current Visit: Yes Status: Chronic Plan: BACK ON HD. I TLAKED TO TODAY. SHE CAN'T TAKE CARE OF HIM. SHE WANTS [facility]. (5) Pulmonary edema Current Visit: Yes Status: Acute Plan: SECONDARY TO CKD AND MISSED HD. Qualifiers: Chronicity: acute Qualified Code(s): J81.0 - Acute pulmonary edema (6) Leukocytosis Current Visit: No Status: Acute Plan: ABOVE. Qualifiers: Leukocytosis type: bandemia Qualified Code(s): D72.825 - Bandemia (7) Alcoholic cirrhosis Current Visit: Yes Status: Chronic Plan: HE IS IN POOR CONDITION FROM MULTI SYSTEM COMPLICATIONS. IS AWARE OF OPTIONS. Qualifiers: Ascites presence: with ascites Qualified Code(s): K70.31 - Alcoholic cirrhosis of liver with ascites (8) Sepsis Current Visit: Yes Status: Acute Plan: HIS WBC IS HIGH. ECHO SHOWS POSSIBLE ENDOCARDITIS IN ADDITION TO VALVULAR REGURGITATIONS. BC2 PENDING. PROGNOSIS IS POOR. I WILL ADD VANCOMYCIN HE IS HIGH MRSA RISK. RESUME CIPRO AND FLAGYL FOR POSSIBLE ABDOMEN INFECTION. PERITONITIS IS ALWAYS POSSIBLE. (9) A-fib Current Visit: Yes Status: Chronic Plan: NO CHANGES. Qualifiers: Atrial fibrillation type: longstanding persistent Qualified Code(s): I48.11 - Longstanding persistent atrial fibrillation
[2019-10-21 08:42] VITALS: O2SAT 100
[2019-10-21] MEDS ORDERED: FUROSEMIDE 40 MG TABLET PO SCH (09:00)
[2019-10-21] MEDS ORDERED: VANCOMYCIN/NS 1 gm 1 GM/250 ML BAG IV SCH (09:00)
[2019-10-21] MEDS ORDERED: dexAMETHasone 4 MG TAB PO SCH (09:00)
[2019-10-21] MEDS ORDERED: Ciprofloxacin 200mg IV 200 MG/100 ML IV.SOLN. IV SCH ×2 (09:00→10:00)
[2019-10-21] MEDS: allopurinoL 100 MG TAB PO SCH (09:00)
--- NOTE | 2019-10-21 11:39 | P.PN ---
Subjective Date of Service: 10/21/19 Chief Complaint: WEAKNESS Subjective ESRD pt missed HD for severe back pain, presented with fluid overload, and sepsis today family agreed for comfort care and hold HD pain control will hold HD physical exam General: confused Neck; Supple, No elevated JVD hear: click sound with systolic murmur Chest: CTAB, no rlaes or wheezes Abdomen: Soft , Nt Extremities No edema or ulcer Assessment And Plan: ESRD on HD family agreed for comfort care and hold HD Sepsis IE? family agreed for comfort care severe lower back pain pain control total time spent 30min Physical Examination - Vital Signs Temperature: 98.3 F Blood Pressure: 109/57 Pulse: 74 Respirations: 20 Pulse Ox (%): 93 - Studies Medications List Reviewed: Yes
[2019-10-21 13:23] VITALS: BP 93/50; TEMP 97.9
--- NOTE | 2019-10-21 14:51 | RAD REPORT ---
EXAM DESCRIPTION: CT - Chest Abdomen Pelvis W Cont - 10/21/2019 9:08 am CLINICAL HISTORY: Chest and abdominal pain COMPARISON: CT abdomen July 2018 TECHNIQUE: Computed axial tomography of the chest, abdomen and pelvis was obtained. 100 cc Isovue-30 0 was administered intravenously. Oral contrast was not requested. This limits evaluation of bowel. All CT scans are performed using dose optimization technique as appropriate and may include automated exposure control or mA/KV adjustment according to patient size. FINDINGS: Several mostly sub centimeter nodular opacities are present within the lungs bilaterally. The heart is moderately to markedly enlarged. Minimal right pleural effusion. No pericardial effusion. No mediastinal or hilar lymphadenopathy A cirrhotic liver. The spleen measures 15 centimeters. Pancreas, adrenals and right kidney unremarkable. Left kidney is small. 4.8 centimeter peripherally calcified mass within the anterior left abdomen unchanged. Spondylosis involves lumbar spine resulting spinal stenosis Normal appendix. No evidence of diverticulitis IMPRESSION: Several small nodular opacities within the lungs could be infectious, inflammatory or ne oplastic. This can be monitored on subsequent exam to assess stability/resolution Cirrhosis with splenomegaly Stable 4.8 centimeter peripherally calcified left abdominal mass probably benign
[2019-10-21 19:24] LABS: HBsAG Nonreactive (Nonreactive)
--- NOTE | 2019-10-23 16:00 | P.DS ---
Admission Date: 10/20/19 Discharge Date: 10/23/19 Disposition: ROUTINE DISCHARGE Discharge Condition: GOOD Reason for Admission: WEAKNESS - Problems (1) Abdominal tenderness Status: Acute Qualifiers: Abdominal location: generalized (2) Altered mental status Status: Acute Qualifiers: Altered mental status type: disorientation Qualified Code(s): R41.0 - Disorientation, unspecified (3) Intractable back pain Status: Chronic (4) CKD (chronic kidney disease) stage 5, GFR less than 15 ml/min Status: Chronic (5) Pulmonary edema Status: Acute Qualifiers: Chronicity: acute Qualified Code(s): J81.0 - Acute pulmonary edema (6) Leukocytosis Status: Acute Qualifiers: Leukocytosis type: bandemia Qualified Code(s): D72.825 - Bandemia (7) Alcoholic cirrhosis Status: Chronic Qualifiers: Ascites presence: with ascites Qualified Code(s): K70.31 - Alcoholic cirrhosis of liver with ascites (8) Sepsis Status: Acute Qualifiers: Sepsis type: Streptococcus, unspecified Sepsis acute organ dysfunction status: with acute organ dysfunction Severe sepsis acute organ dysfunction type: unspecified Severe sepsis shock status: with septic shock Qualified Code(s): A40.9 - Streptococcal sepsis, unspecified; R65.21 - Severe sepsis with septic shock (9) A-fib Status: Chronic Qualifiers: Atrial fibrillation type: longstanding persistent Qualified Code(s): I48.11 - Longstanding persistent atrial fibrillation Hospital Course: MR. MG CAME WITH DYSPNEA BUT HAS LOT MORE GOING ON THAN JUST FAILURE TO COMPLY WITH HD. HE WAS SEPTIC WITH ENDOCARDITIS BY ENTEROCOCI. HE FAILED TO IMPROVE. HE BECAME MORE AND MORE SOMNOLENT, COMATOSE AND HAD NO USE OF HEMODIALYSIS ANY LONGER HE IS NOW TERMINAL. FAMILY, THE AND TWO DAUGHTERS, I HAD DISCUSSED WITH AND THEY ACCEPTED INPATIENT HOSPICE THE BEST OPTION FOR HIM. Vital Signs/Physical Exam: Temp Pulse Resp BP Pulse Ox 97.9 F 105 H 19 93/50 L 100 10/21/19 12:00 10/21/19 12:00 10/21/19 12:00 10/21/19 12:00 10/21/19 12:00 Laboratory Data at Discharge: WBC 19.5 K/uL (4.3-10.9) H D 10/21/19 05:27 Hgb 8.8 g/dL (13.6-17.9) L 10/21/19 05:27 Hct 28.3 % (39.6-49.0) L 10/21/19 05:27 Plt Count 226 K/uL (152-406) 10/21/19 05:27 PT 15.4 SECONDS (9.5-12.5) H 10/19/19 03:50 INR 1.31 10/19/19 03:50 APTT 33.8 SECONDS (24.3-36.9) 10/19/19 03:50 Sodium 141 mmol/L (136-145) 10/21/19 05:27 Potassium 4.7 mmol/L (3.5-5.1) 10/21/19 05:27 BUN 49 mg/dL (7-18) H 10/21/19 05:27 Creatinine 3.51 mg/dL (0.55-1.3) H 10/21/19 05:27 Glucose 83 mg/dL (74-106) 10/21/19 05:27 Phosphorus 4.3 mg/dL (2.5-4.9) 10/20/19 06:46 Magnesium 2.3 mg/dL (1.8-2.4) 10/20/19 06:46 Total Bilirubin 1.1 mg/dL (0.2-1.0) H 10/19/19 03:50 AST 11 U/L (15-37) L 10/19/19 03:50 ALT 8 U/L (12-78) L 10/19/19 03:50 Alkaline Phosphatase 380 U/L (45-117) H 10/19/19 03:50 Home Medications: Allopurinol 100 mg PO DAILY 10/19/19 Apixaban [Eliquis *] 2.5 mg PO BID 10/19/19 Metolazone [Zaroxolyn] 5 mg PO DAILY 10/19/19 Metoprolol Tartrate 100 mg PO BID 10/19/19 Oxycodone HCl/Acetaminophen [Oxycodon-Acetaminophen 7.5-325] 1 tab PO TID PRN 10/19/19 Torsemide [Demadex*] 20 mg PO BID 10/19/19 Trazodone [Desyrel*] 50 mg PO BEDTIME PRN 10/19/19 Patient Discharge Instructions: OK TO DC IV AND DC HOME after hemodialysis. FOLLOW-UP WITH PRIMARY CARE PROVIDER IN 1-2 WEEKS. FOLLOW-UP WITH software engineer developer and pain specialist. OUTPATIENT HEMODIALYSIS IN 48 HRS. RETURN TO THE ER IF symptoms worsen. CALL or TEXT DR. CHEN AT [phone] IF ANY QUESTIONS REGARDING HOSPITAL STAY. PLEASE CALL THE FLOOR AT [phone] IF ANY MEDICATION OR NURSING QUESTIONS. Diet: Renal Activity: Fall precautions
== END 2019-10-21 15:26 | disposition home or self-care (01) | DRG 871 ==
LOC: ER 13:32 → ERHOLD 21:14 → 4TH 22:51 → 2ND 10-19 20:33 → OBSVTOIN 10-20 13:50
PROVIDERS: ADMIT Internal Medicine; ATTEND Internal Medicine
PROC: 5A1D70Z Performance of Urinary Filtration, Intermittent, Less than 6 Hours Per Day (ICD-10-PCS; principal; 2019-10-19)
DX: A40.9 Streptococcal sepsis, unspecified (principal); N18.6 End stage renal disease; J81.0 Acute pulmonary edema; R65.21 Severe sepsis with septic shock; I33.0 Acute and subacute infective endocarditis; N25.81 Secondary hyperparathyroidism of renal origin; E87.1 Hypo-osmolality and hyponatremia; I48.11 Longstanding persistent atrial fibrillation; I12.0 Hypertensive chronic kidney disease with stage 5 chronic kidney disease or end stage renal disease; Z91.14 Patient's other noncompliance with medication regimen; Z79.01 Long term (current) use of anticoagulants; Z79.899 Other long term (current) drug therapy; I25.2 Old myocardial infarction; I25.10 Atherosclerotic heart disease of native coronary artery without angina pectoris; Z95.5 Presence of coronary angioplasty implant and graft; Z87.891 Personal history of nicotine dependence; Z99.2 Dependence on renal dialysis; D63.8 Anemia in other chronic diseases classified elsewhere; E11.22 Type 2 diabetes mellitus with diabetic chronic kidney disease; Z91.15 Patient's noncompliance with renal dialysis; D72.829 Elevated white blood cell count, unspecified; R41.0 Disorientation, unspecified; M54.9 Dorsalgia, unspecified; D72.825 Bandemia; K70.31 Alcoholic cirrhosis of liver with ascites; B95.2 Enterococcus as the cause of diseases classified elsewhere; E11.40 Type 2 diabetes mellitus with diabetic neuropathy, unspecified
CPT/HCPCS: 36415; 71045; 71260; 74177; 80048; 80053; 80076; 81001; 82140; 82805; 83605; 83735; 83880; 84100; 84145; 84484; 85025; 85610; 85730; 86317; 86850; 86900; 86901; 87040; 87077; 87086; 87088; 87186; 87205; 87340; 90935; 93005; 93306; 99285; G0378; J0696; J0744; J1160; J1200; J1644; J1940; J2270; J3010; J7030; J8540; P9047; Q5105; Q9967

== ENCOUNTER 2019-10-21 15:22 | Inpatient (IN) | payer OTHER ==
--- OUTSIDE RECORDS SUMMARY | 2019-10-21 15:36 | XMS REPORT | Clinical Summary ---
:1945 Author Organization [facility] Address [address] [place] [address] Care Team Providers Name Role Phone MD [...] (Primary D x) 11/14/2018 Intake Access after 10/20/2018 Family History Medical History Relation Name Comments [...] Comments Blood Pressure 113/72 08/02/2019 2:57 PM CUSTOMER ACCOUNT EXECUTIVE Pulse 100 08/02/2019 2:57 PM CUSTOMER ACCOUNT EXECUTIVE Temperature 36.7 C (98.1 F) 08/02/2019 2:57 PM CUSTOMER ACCOUNT EXECUTIVE Respiratory Rate 16 08/02/2019 2:57 PM CUSTOMER ACCOUNT EXECUTIVE Oxygen Saturation 99% 08/02/2019 2:57 PM CUSTOMER ACCOUNT EXECUTIVE Inhaled Oxygen Concentration - - Weight 81.2 kg (179 lb) 08/02/2019 2:57 PM CUSTOMER ACCOUNT EXECUTIVE Height 175.3 cm (5' 9") 08/02/2019 2:57 PM CUSTOMER ACCOUNT EXECUTIVE Body Mass Index 26.43 08/02/2019 2:57 PM CUSTOMER ACCOUNT EXECUTIVE Plan of Treatment Date Type Specialty Care Team Description 10/27/2019 Hospital Encounter General Surgery Vernell Barrios MD [facility] [address] [place], [place] [address] 10/27/2019 Anesthesia Event General Surgery [address] , [employer]IST [address] [facility] [address] [place], [place] [address] [phone] 10/27/2019 Surgery General Surgery Vernell Barrios LEFT UPP [place] Pat MD WITH WAVELINQ [facility] [address] [place], [place] [id number] Health Maintenance Due Date Last Done Comments [...] Preop testing Results f or this PM CUSTOMER ACCOUNT EXECUTIVE procedure are i n the results section. ECG PRE/POST OP Routine 08/02/2019 3:41 Preop testing Results for this PM CUSTOMER ACCOUNT EXECUTIVE procedure are i n the results section. HEMOGLOBIN A1C Routine 08/02/2019 2:51 Preop testing Results for this PM CUSTOMER ACCOUNT EXECUTIVE procedure are i n the results section. TYPE AND SCREEN Routine 08/02/2019 2:51 Preop testing Results for this PM CUSTOMER ACCOUNT EXECUTIVE procedure are i n the results section. HC COMPLETE BLD COUNT Routine 08/02/2019 2:51 Preop testing R esults for this W/AUTO DIFF PM CUSTOMER ACCOUNT EXECUTIVE procedure are i n the results section. MO ARTHROCENTESIS Routine 01/25/2019 10:40 Primary Result s for this ASPIR&/INJ MAJOR AM CDT osteoarthritis of proced ure are in JT/BURSA W/O US right knee the results Chronic pain of right sectio n. knee XR KNEE 4+ VW LEFT Routine 01/18/2019 11:00 Acute pain of left Results for this AM CDT knee procedure are i n the results section. MO ARTHROCENTESIS Routine 01/18/2019 10:30 Acute pain of left Results for this ASPIR&/INJ MAJOR AM CDT knee procedure are in JT/BURSA W/O US Primary the results osteoarthritis of section. both knees MO ARTHROCENTESIS Routine 01/18/2019 10:30 Primary Result s for this ASPIR&/INJ MAJOR AM CDT osteoarthritis of proced ure are in JT/BURSA W/O US both knees the results Chronic pain of right sectio n. knee MO ARTHROCENTESIS Routine 01/11/2019 10:40 Primary Result s for this ASPIR&/INJ MAJOR AM CDT osteoarthritis of proced ure are in JT/BURSA W/O US right knee the results Chronic pain of right sectio n. knee XR KNEE 4+ VW RIGHT Routine 12/28/2018 2:16 Acute pain of rig ht Results for this PM CDT knee procedure are i n the results section. MO ARTHROCENTESIS Routine 12/28/2018 2:10 Acute pain of right Results for this ASPIR&/INJ MAJOR PM CDT knee procedure a re in JT/BURSA W/O US the results section. after 10/20/[address] Lumbar Spine Wo Contrast (08/23/2019 [...] Transitional vertebrae suspected as desc ribed above. [facility]-[id number] Procedure Note Hm Interface, Radiology Results - [...] L5-S1. Transitional vertebrae suspected as described above. [facility]-[id number] Performing Organization Address City/State/Zipcode Phone Number [facility] [address] [place] [address] CT Thoracic Spine Wo Contrast (08/23/2019 3:29 [...] e further evaluated by dedicated cervical imaging. [id number] Procedure Note Hm Interface, Radiology Results - 08/23/2019 4:02 PM CDT EXAMINATION: CT [...] be further evaluated by dedicated cervical imaging. [id number] Performing Organization Address [facility] Phone Number [facility] [address] [place] [address] XR Lumbar Spine Complete 4+ Vw (08/23/2019 [...] vertebral compression fracture visualized. Performing Organization Address [facility] Phone Number [facility] [address] [place] [address] XR Chest 2 Vw (08/02/2019 4:04 PM CUSTOMER ACCOUNT EXECUTIVE) Specimen Narrative Performed At EXAMINATION: XR CHEST 2 VW [facility] CLINICAL HISTORY: Z01.818 Encounter for other preproce dural examination, Pre OP Testing COMPARISON: 09/21/2015 IMPRESSION: Right jugular dialysis catheter is in place extending to right atrium. There is stable ftss-ym-atwjurce cardiomegaly. Pulmona ry vasculature is normal. There is aortic calcification tortuosity. No focal infiltrate, effusion or pneumothorax seen. Visualized osseous structures are intact . [facility]-[id number] Procedure Note Hm Interface, Radiology Results Incoming - 08/02/2019 4:11 PM CUSTOMER ACCOUNT EXECUTIVE EXAMINATION: XR CHEST 2 VW CLINICAL HISTORY: Z01.818 Encounter for other preprocedural examination, Pre OP Testing COMPARISON: 09/21/2015 IMPRESSION: Right jugular dialysis catheter is in pl deja extending to right atrium. There is stable csti-mm-wsrjhsen cardiomegaly. Pulmonary vasculature is normal. There is aortic calcification tortuosity. No focal infiltrate, effusion or pneumothorax seen. Visualized osseous structures are intact . [facility]-[id number] Performing Organization Address City/[facility]/Zipcode Phone Number [facility] [address] [place] [address] ECG Pre/Post Op (08/02/2019 3:41 PM CUSTOMER ACCOUNT EXECUTIVE) Pathologist Sig nature Ventricular rate 80 [facility] Atrial rate 71 [facility] QRSD interval 96 [facility] QT interval 388 [facility] QTC interval 447 [facility] QRS axis 1 167 [facility] T wave axis 24 [facility] EKG impression Atrial [facility] MUSE fibrillation-Indetermin ate axis-Low voltage QRS-Abnormal ECG-No previous ECGs available-Electronicall y Signed By Brayden SEYMOUR, Solomon Diamond (2019) on 08/02/2019 5:06:11 PM Specimen Narrative Performed At This result has an attachment that is no t available. Performing Organization Address [facility] Phone Number [facility] [employer] [address] [place] [address] CBC with platelet and differential (08/02/2019 2:51 PM CUSTOMER ACCOUNT EXECUTIVE) WBC 15.8 (H) 4.5 - 11.0 k/uL [facility] RBC 4.24 (L) 4.40 - 6.00 SAVANNAH YARSANISM m/uL [facility] HGB 12.5 (L) 14.0 - 18.0 SAVANNAH YARSANISM g/dL [facility] HCT 41.1 41.0 - 51.0 % [facility] MCV 96.9 82.0 - 100.0 fL [facility] MCH 29.5 27.0 - 34.0 pg [facility] MCHC 30.4 (L) 31.0 - 37.0 [facility] g[facility]dL [facility] RDW - SD 53.9 37.0 - 55.0 fL [facility] MPV 10.1 6.9 - 11.0 fL [facility] Platelet count 367 150 - 400 K/uL [facility] Nucleated RBC 0.00 /100 WBC [facility] Neutrophils 80.0 (H) 39.0 - 69.0 % [facility] Lymphocytes 6.3 (L) 25.0 - 45.0 % [facility] Monocytes 8.3 0.0 - 10.0 % [facility] Eosinophils 1.7 0.0 - 5.0 % [facility] Basophils 1.2 (H) 0.0 - 1.0 % [facility] Immature granulocytes 2.5 (H) 0.0 - 1.0 % [facility] Specimen Blood Performing Organization Address City/[facility]/Zipcode Phone Number [facility] DEPARTMENT OF PATHOLOGY [address] [place] [address] [phone] [place] [phone] HOSPITAL Type and screen (08/02/2019 2:51 PM CUSTOMER ACCOUNT EXECUTIVE) Pathologist Sig nature ABO grouping O [facility] Rh type POS [facility] Antibody screen (gel) NEG [facility] Specimen Blood Performing Organization Address [facility]/Zipcode Phone Number [facility] DEPARTMENT OF PATHOLOGY [address] [place] [address] [phone] [place] [address] Hemoglobin A1c (08/02/2019 2:51 PM CUSTOMER ACCOUNT EXECUTIVE) Hemoglobin A1C 5.2 4.0 - 5.6 % [facility] Comment: NURSERY HbA1c cutoffs for diagnosing diabetes: HO SPITAL [...] 1 diabetes. Specimen Blood Performing Organization Address City/[facility]/Zipcode Phone Number [facility] DEPARTMENT OF PATHOLOGY [address] [place] [phone] [address] [facility] [place] [address] [facility] [address] [address] [facility] Large Joint Arthrocentesis: knee, R knee (01/25/2019 [...] or abno rmal spurring. Performing Organization Address City/State/[facility] Phone Number [facility] [address] [place] [address] Large Joint Arthrocentesis: knee, L knee (01/18/2019 [...] calcifications or loose bodies. Performing Organization Address City/State/[facility] Phone Number [facility] [address] [place] [address] Large Joint Arthrocentesis: knee, R knee (12/28/2018 2:10 PM CDT) Narrative Performed At Patel Peoples MD 12/28/2018 4 :44 PM Large Joint Arthrocentesis: knee, R knee Consent given by: patient Timeout: Immediately prior to procedure a time out was called to verify the correct patient, procedure, equipmen t, bioinformatics support specialist and site/side marked as required Supporting Documentation [...] wel l with no immediate complications after 10/20/2018 Insurance Payer Benefit Plan / Subscriber ID Effective Dates Phone Addre ss Type Group MEDICARE MEDICARE PART A xxxxxxxxxxx 2011-Present [place] B Advance Directives For more information, please contact: [phone] Type Date Recorded Patient Patient Access Associate Explanati on Advance Directives, Living Will 08/02/2019 2:35 PM and Medical Power of Gymnas[employer] Teacher
--- OUTSIDE RECORDS SUMMARY | 2019-10-21 15:38 | XMS REPORT | Clinical Summary ---
:1945 Author Organization Formerly [facility] Address [address] [place] [address] Care Team Providers Name Role Phone Hunter [...] ast. He is followed closely by his applied exercise physiologist at present denies any chest pain but [...] Surgery Gastroenterology Vero Pace ENTEROSCOPY ,BIOPSY MD Luican 11/15/2018 Orders Only General Internal Medicine 11/14/2018 [facility] Internal [facility] Acute blood loss anemia; - Encounter Medicine Kem Man Gastrointestina l hemorrhage, unspecified gastrointestinal hemorrhage type; 11/24/2018 MD Parker ESRD (end stage renal disease) (HCC); Manuel Bullock Melena; MD Coronary artery disease involving [place] heart without angina pectoris, unspecified vessel or lesion type; Lilo Al Acute gout of r ight knee, unspecified cause; MD Diego 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 after 10/20/2018 Results RHYTHM STRIP - SCAN (11/29/2018 3:20 [...] 87Comment: TESTED AT 70 - 110 mg/dL [address] [address] Specimen Blood Performing Organization Address City/State/Zipcode Phone Number [address] [address] CENTER CBC with platelet count + automated diff (11/24/2018 5:53 AM CDT)Only the most recent of11 resultswithin the time period is included. WBC 12.5 (H) 3.5 - 10.5 K/L [facility] RBC 3.15 (L) 4.63 - 6.08 M/L [facility] Hemoglobin 8.6 (L) 13.7 - 17.5 GM/DL [facility] Hematocrit 28.6 (L) 40.1 - 51.0 % [facility] MCV 90.8 79.0 - 92.2 fL [facility] MCH 27.3 25.7 - 32.2 pg [facility] MCHC 30.1 (L) 32.3 - 36.5 GM/DL [facility] RDW 24.3 (H) 11.6 - 14.4 % [facility] Platelets 427 150 - 450 K/CU MM [facility] MPV 9.5 9.4 - 12.4 fL [facility] nRBC 0 0 - 0 /100 WBC [facility] % Neutros 73 % [facility] % Lymphs 8 % [facility] % Monos 8 % [facility] % Eos 8 % [facility] % Baso 1 % [facility] # Neutros 9.15 (H) 1.78 - 5.38 K/L [facility] # Lymphs 1.03 (L) 1.32 - 3.57 K/L [facility] # Monos 0.98 (H) 0.30 - 0.82 K/L [facility] # Eos 1.02 (H) 0.04 - 0.54 K/L [facility] # Baso 0.07 0.01 - 0.08 K/L [facility] Immature Granulocytes-Relative 2 (H) 0 - 1 % C [facility] Specimen Blood Performing Organization Address City/[facility] Phone Number [address] [address] CENTER Magnesium (11/24/2018 5:53 AM CDT)Only the most recent of11 resultswithin the time period is included. Magnesium 1.9Comment: Specimen slightly 1.6 - 2.6 mg/dL [facility] hemolyzed [facility] Specimen Blood Performing Organization Address City/[facility]/Zipcode Phone Number [address] [address] CENTER Basic Metabolic Panel (11/24/2018 5:53 AM CDT)Only the most recent of3 results within the time period is included. Sodium 140 136 - 145 meq/L [facility] Potassium 4.3Comment: Specimen slightly 3.5 - 5.1 meq/L [facility] hemolyzed [facility] Chloride 106 98 - 107 meq/L [facility] CO2 26 22 - 29 meq/L [facility] BUN 37 (H) 7 - 21 mg/dL [facility] Creatinine 2.17 (H)Comment: Specimen 0.57 - 1.25 mg/dL [facility] slightly hemolyzed [facility] Glucose 96 70 - 105 mg/dL [facility] Calcium 8.2 (L) 8.4 - 10.2 mg/dL [facility] EGFR 30Comment: ESTIMATED GFR IS mL/min/1.73 sq m [facility] NOT ACCURATE CREATININE [facility] CLEARANCE IN PREDICTING GLOMERULAR FILTRATION RATE. ESTIMATED GFR IS NOT APPLICABLE FOR DIALYSIS PATIENTS. Specimen Blood Performing Organization Address City/State/Zipcode Phone Number [facility] [address] [place] [address] CENTER Transesophageal echo (11/23/2018 10:57 AM CDT) Ejection Fraction [facility] ECHO HEAR TLAB [facility] Specimen Narrative Performed At Transesophageal Echocardiography Report (SAMUEL) [facility] ECHO HEARTLAB [facility] Demographics Patient Name Jay ESCALANTE of Study11/23/2018 SELINA [id number] Gender Male Visit Number [id number] Unknown [id number] Room [id number] Number Date of Birth1945Referring Francisco Can MD Physician Age73 year(s)Acidizer Maykel Nolasco, Physician Fellow DANTE Bardales Procedure [...] 11/23/2018 SELINA Gend er Male Visit Number [id number] Race Unknown Room Number 960 Number Date [...] cm^2 MV Jose. Peak: Performing Organization Address City/[facility]/Zipcode Phone Number [facility] Calcium, Ionized (11/23/2018 4:25 AM CDT)Only the most recent of9 resultswithin the time period is included. Calcium, Ion 1.02 (L) 1.12 - 1.27 mmol/L [facility] pH, Blood 7.48 [facility] Specimen Blood Performing Organization Address City/State/Zipcode Phone Number [facility] MEDICAL [address] [place] [address] CENTER Phosphorus (11/23/2018 4:25 AM CDT)Only the most recent of10 resultswithin the time period is included. Phosphorus 3.2 2.3 - 4.7 mg/dL [facility] Specimen Blood Performing Organization Address City/State/Zipcode Phone Number [facility] [address] [place] [address] CENTER Comprehensive metabolic panel (11/23/2018 4:25 AM CDT)Only the most recent of9 resultswithin the time period is included. Protein, Total 5.1 (L) 6.0 - 8.3 gm/dL [facility] ER Albumin 2.9 (L) 3.5 - 5.0 g/dL [facility] Alkaline Phosphatase 286 (H) 40 - 150 U/L [facility] Total Bilirubin 1.1 0.2 [...] - 1.25 mg/dL [facility] ER Glucose 107 (H) 70 [...] [facility] IS NOT ACCURATE [facility] CREATININE CLEARANCE IN PREDICTING GLOMERULAR FILTRATION RATE. ESTIMATED GFR IS NOT APPLICABLE FOR DIALYSIS PATIENTS. Specimen Blood Performing Organization Address [facility]/Zipcode Phone Number [address] [address] [place] Hepatitis B Panel (11/22/2018 7:04 PM CDT) Hep B Core Total Ab Nonreactive Nonreactive [facility] Hep B S Ab <8.0 <8.0 mIU/mL [facility] HBsAg Screen Nonreactive Nonreactive [facility] Specimen Blood Performing Organization Address [facility] Phone Number [address] [address] CENTER Iron, TIBC, % sat. (without ferritin) (11/20/2018 3:56 AM CDT) Iron 33.0 (L) 40.0 - 160.0 ug/dL [facility] TIBC 161 (L) 250 - 450 ug/dL [facility] Iron % Saturation 20 20 - 55 % [facility] Specimen Blood Performing Organization Address [facility] Phone Number [address] [address] CENTER Reticulocyte count (11/20/2018 3:56 AM CDT) % Retic 3.5 (H) 0.5 - 1.8 % [facility] Specimen Blood Performing Organization Address [facility]/Zipcode Phone Number [address] [address] CENTER Ferritin (11/20/2018 3:56 AM CDT) Ferritin 162 5 - 275 ng/mL [facility] Specimen Blood Performing Organization Address [facility]/Zipcode Phone Number [address] [place] [address] CENTER HEMODIALYSIS INPATIENT (11/19/2018 9:58 PM CDT) [...] COLONOSCOPY01/07/2013 Procedure: COLONOSCOPY;Surgeon: Sami Berry MD; Location[facility];Service: Gastroe nterology;Laterality: N/A; COLONOSCOPY N/A 08/02/2018 Procedure: COLONOSCOPY;Surgeon: Skyler Pino MD;Location: [facility];Service: Gastroenterology; Laterality: N/A; CORONARY ANGIOPLASTY WITH STENT PLACEME [id number] and 2009 2000 ENTEROSCOPY,BIOPSY N/A 11/15/2018 Procedure: ENTEROSCOPY,BIOPSY;Surge on: Vero Pace MD; Location: [facility];Service: Gastroe nterology;Laterality: N/A;ENTEROSCOPY with Anesthesia EYE SURGERY Bilateral 2008 HERNIA REPAIR hernia repair R & L CATH01/12/2013 Procedure: R & L CATH;Surgeon: Reynaldo Naylor MD;Location: [facility] CY[facility]ING [facility]IDE;Service: Cardiology; Laterality: Bilateral; SKIN BIOPSY back melanoma UPPER ENDOSCOPY01/06/2013 Procedure: UPPER ENDOSCOPY;Surgeon: Dina Berry MD;Location: [facility];Service: Gastroenterology; Laterality: N/A;UPPER ENDOSCOPY UPPER ENDOSCOPY N/A 08/02/2018 Procedure: UPPER ENDOSCOPY;Surgeon: Skyler Carrillo MD; Location: [facility];Service: Gastroe nterology;Laterality: N/A; Alivia Hansen RN C-Reactive Protein (11/19/2018 10:14 AM CDT) CRP 12.99 (H) 0.00 - 0.50 mg/dL [facility] Specimen Blood Performing Organization Address City/State/Zipcode Phone Number [place] [phone] [place] [address] CENTER XR knee 1 or 2 views left (11/19/2018 9:54 AM CDT) Specimen Narrative Performed At FINAL REPORT [facility] TECHNIQUE: Frontal and lateral and obliq ue [...] MD Report Verified Date/Time:11/19/2018 10:15:39 [place] Location: [facility] Radiology Reading Room Procedure Note Interface, External [...] Verified Date/Time: 11/19/2018 1 0:15:39 [place] Location: [facility] Radiology [place] Room Performing Organization Address City/State/Zipcode Phone Number [facility] XR knee 1 or 2 views right (11/19/2018 9:46 AM CDT) Specimen Narrative Performed At FINAL REPORT [facility] TECHNIQUE: Frontal and lateral and obliq ue [...] MD Report Verified Date/Time:11/19/2018 10:15:39 [place] Location: [facility] Radiology [place] Room Procedure Note Interface, External [...] Verified Date/Time: 11/19/2018 1 0:15:39 [place] Location: [facility] Radiology [place] Room Performing Organization Address City/State/Zipcode Phone Number [place] ECG 12 lead (11/17/2018 7:01 PM CDT)Only the most recent of2 resultswithin the time period is included. Specimen Narrative Performed At Ventricular Rate 102 BPM [facility] Atrial Rate 90 BPM QRS Duration 104 ms Q-T Interval 398 ms QTC Calculation(Bazett) 518 ms R [place] -25 degrees T [place] 48 degrees Atrial fibrillation with rapid ventricul [...] 398 ms QTC Calculation(Bazett) 518 ms R [place] -25 degrees T [place] 48 degrees Atrial fibrillation with rapid ventricul ar response Low voltage QRS Abnormal ECG When compared with ECG of 15-NOV-2018 04 :23, No significant change was found Confirmed by Juan ONEAL MICHAEL (15 0) on 11/18/2018 7:46:11 AM Performing Organization Address City/State/Zipcode Phone Number [place] TRANSFUSION SERVICE REPORT - SCAN (11/17/2018 6:02 PM CDT)Only the most recent of3 resultswithin the time period is included. Narrative Performed At This result has an attachment that is no t available. Hemoglobin and hematocrit (11/17/2018 3:31 PM CDT)Only the most recent of11 resultswithin the time period is included. Hemoglobin 9.4 (L) 13.7 - 17.5 GM/DL [facility] Hematocrit 31.4 (L) 40.1 - 51.0 % [facility] Specimen Blood Performing Organization Address City/State/Zipcode Phone Number [facility] [address] [place] [address] CENTER NM GI bleed study (11/17/2018 2:16 PM CDT) Specimen Narrative Performed At FINAL REPORT [facility] PROCEDURE: HEMORRHAGE STUDY with RBCs CPT CODE: 15274 INDICATION: Gastrointestinal Bleeding PROTOCOL: 22.0 mCi ofTc-99m [...] MD Report Verified Date/Time:11/17/2018 15:07:00 [place] Location: [address] Reading Room Procedure Note Interface, External Ris In - 11/17/2018 3:09 PM CDT FINAL REPORT PROCEDURE: HEMORRHAGE STUDY with RBC s CPT CODE: 11530 INDICATION: Gastrointestinal Bleed ing PROTOCOL: 22.0 mCi [...] Verified Date/Time: 11/17/2018 1 5:07:00 [place] Location: [address] Reading Room Performing Organization Address City/State/Zipcode Phone Number [facility] Vancomycin level, random (11/17/2018 8:15 AM CDT)Only the most recent of2 resultswithin the time period is included. Vancomycin Rm 16.1 ug/mL [facility] Specimen Blood Narrative Performed At Reference Range: No Normals [facility] Performing Organization Address [facility] Phone Number [facility] [address] [place] [address] CENTER Prepare Leuko-Red PLT (11/16/2018 11:54 PM CDT) Unit ABO AB Pos [place] UNIT NUMBER [id number] [place] Status TX_TIMEINCHART [place] Blood Bank Product PLATELETS [place] PRODUCT CODE [id number] [place] Specimen Blood Performing Organization Address [facility] Phone Number [place] Prepare Leuko-Red RBC (11/16/2018 11:54 PM CDT)Only the most recent of2 results within the time period is included. CROSSMATCH COMPATIBLE [place] Unit ABO O Pos [place] UNIT NUMBER [id number] [place] Status TX_TIMEINCHART [place] Blood Bank Product RED BLOOD CELLS [place] PRODUCT CODE [id number] [place] Specimen Other Performing Organization Address [facility] Phone Number [place] Prepare plasma (11/16/2018 11:54 PM CDT) Unit ABO O Pos [place] UNIT NUMBER [id number] [place] Status TX_TIMEINCHART [place] Blood Bank Product FFP [place] PRODUCT CODE [id number] [place] Specimen Blood Performing Organization Address [facility]/Zipcode Phone Number [place] Platelet Aggregation: Function Screen (11/16/2018 7:59 PM CDT) Weak ADP 90 60 - 91 % [facility] ER Plt. Function Screen 60-100% indicates [facility] Interpretation normal platelet [facility] MEDICAL [facility] ER function Pathologist: Kyle Man MD [facility] (electronic [facility] ER signature) Platelets 215 150 - 450 K/CU MM [facility] ER Specimen Blood Narrative Performed At Platelet Function Screen results may be [facility] falsely low with platelet counts <100,000/cu mm. mollyto Performing Organization Address [facility]/Zipcode Phone Number [address] [address] CENTER PT/aPTT (11/16/2018 6:43 PM CDT) Protime 15.1 (H) 11.9 - 14.2 seconds [facility] INR 1.2 <=5.9 [facility] PTT 42.8 (H) 22.5 - 36.0 seconds [facility] Specimen Blood Narrative Performed At Effective 10/27/2018: PT Reference Range [facility] Change New: 11.9-14.2Previous: 11.7-14.7 RECOMMENDED COUMADIN/WARFARIN INR THERAPY RANGES STANDARD DOSE: 2.0-3.0Includes: PROPHYLAXIS for venous thrombosis, systemic embolization; TREATMENT for venous thrombosis and/or pulmonary embolus. HIGH RISK: Target INR is 2.5-3.5 for patients wiht mechanical heart valves. Performing Organization Address City/State/Zipcode Phone Number [address] [address] CENTER Heparin Assay - Unfractionated (11/16/2018 6:43 PM CDT) Anti 10A-Unfractionated 0.12 (L) 0.30 - 0.70 u/ml [facility] Heparin [facility] Specimen Blood Narrative Performed At Recommendations for Monitoring Unfractionated [facility] Heparin Therapeutic Range: 0.3-0.7 u/mL with continuous IV infusion Performing Organization Address [facility] Phone Number [facility] [address] [place] [address] [place] Heparin Assay - Low Molecular Weight (11/16/2018 6:43 PM CDT) Anti 10A-Lovenox 0.10 (L) 0.60 - 2.00 u/ml [facility] Specimen Blood Narrative Performed At Anti-Factor 10-A Level (Heparin Assay for Low [facility] Molecular Weight Heparin) Monitoring Guidelines: Blood samples should be obtained 4 hours post subcutaneous injection (time of Peak level) Therapeutic Peak Levels: 0.6-1.0 units/mLtwice daily enoxapa rin 1.0-2.0 units/mLonce daily enoxapar in Ref: CHEST 2012;[id number] Performing Organization Address [facility] Phone Number [facility] [address] [place] [address] [place] Thromboelastograph (TEG) (11/16/2018 9:46 AM CDT)Only the most recent of2 resultswithin the time period is included. TEG Activated Clotting Time 4.3 4.0 - 7.0 minutes [facility] TEG Fibrinogen Activity 77.9 (H) 61.0 - 73.0 degrees [facility] TEG Platelet Aggregation 73.2 (H) 55.0 - 65.0 MM [facility] TEG Fibrinolysis 0.0 0.0 - 5.0 % [facility] TEG-H Activated Clotting Time 4.4 4.0 - 7.0 minutes [facility] TEG-H Fibrinogen Activity 77.1 (H) 61.0 - 73.0 degrees [facility] TEG-H Platelet Aggregation 69.6 (H) 55.0 - 65.0 MM [facility] TEG-H Fibrinolysis 0.0 0.0 - 5.0 % [facility] Specimen Blood Performing Organization Address [facility] Phone Number [address] [address] CENTER REPORT OF PROCEDURE - [...] 9:07 AM CDT) HBsAg Screen Nonreactive Nonreactive [facility] Specimen Blood Narrative Performed At For chronic HD patients, draw HBsAg with each [facility] admission then every 30 days. Performing Organization Address [facility] Phone Number [address] [address] CENTER Ammonia (11/15/2018 9:07 AM CDT) Ammonia 34 18 - 72 mol/L [facility] Specimen Blood Performing Organization Address City/[facility]/Zipcode Phone Number [place] [phone] [place] [address] CENTER Manual Differential (11/15/2018 5:01 AM CDT)Only the most recent of2 results within the time period is included. % Neutros 91 % [facility] % Lymphs 3 % [facility] % Monos 3 % [facility] % Eos 3 % [facility] # Neutros 12.56 (H) 1.78 - 5.38 K/ul [facility] # Lymphs 0.41 (L) 1.32 - 3.57 K/ul [facility] # Monos 0.41 0.30 - 0.82 K/uL [facility] # Eos 0.41 0.04 - 0.54 K/uL [facility] Total Counted [address] [facility] WBC Morphology Normal [facility] Platelet Morphology Normal [facility] Polychromasia 1+ few [facility] Hypochromia 1+ few [facility] Anisocytosis 1+ few [facility] Microcytes 1+ few [facility] Po[facility]ilocytes 1+ few [facility] Oval[facility] 1+ few [facility] Artifact Present [facility] Platelet Conc Adequate [facility] Specimen Blood Narrative Performed At Received comment: [facility] User comments: Slide comments: Performing Organization Address City/State/Zipcode Phone Number [facility] [address] [place] [address] CENTER Transfuse plasma (11/15/2018 1:48 AM CDT)Only the most recent of2 resultswithin the time period is included.Urinalysis w/Microscopic + Reflex to Culture (11/14/2018 10:57 PM CDT) Color, UA Yellow [facility] Clarity, UA Hazy [facility] Specific [place], UA 1.012 1.001 - 1.035 [facility] pH, UA 5.0 5.0 - 8.[address] [facility] Protein, UA 10 mg/dL (A) Negative [facility] Glucose, UA Negative Negative [facility] Ketones, UA Negative Negative [facility] Bilirubin, UA Negative Negative [facility] Blood, UA Moderate (A) Negative [facility] Nitrite, UA Negative Negative [facility] Leukocytes, UA Large (A) Negative [facility] Urobilinogen, UA 0.2 0.2 - 1.0 mg/dL [facility] RBC, UA 240 /HPF [facility] WBC, UA 87 /HPF [facility] Mucus Occasional [facility] Squam Epithel, UA 1 /HPF [facility] Hyaline Casts, UA 13 /LPF [facility] Granular Casts, UA 2 /LPF [facility] Specimen Source [facility] Specimen Urine Performing Organization Address City/State/Zipcode Phone Number [address] [address] [place] Urine culture (11/14/2018 10:57 PM CDT) Result No growth [facility] Specimen Urine Performing Organization Address City/[facility]/Zipcode Phone Number [address] [address] [place] Procalcitonin (11/14/2018 10:44 PM CDT) Procalcitonin 1.37 (H) <0.05 ng/mL [facility] Specimen Blood Narrative Performed At SEPSIS RISK (ng/mL) [facility] Low:0.05-0.50 Intermediate: 0.51-2.00 High: >=2.01 Performing Organization Address [facility] Phone Number [address] [address] CENTER Lactic acid, venous (11/14/2018 10:44 PM CDT) Lactate, Venous 0.7 0.5 - 2.2 mmol/L [facility] Specimen Blood Performing Organization Address [facility] [place]/[facility] Phone Number [address] [phone] CENTER Blood Culture - Routine (Right Venipuncture) (11/14/2018 10:13 PM CDT)Only the most recent of2 resultswithin the time period is included. Result No growth in 5 days [facility] Specimen Blood Performing Organization Address [facility] Phone Number [address] [address] CENTER Type and screen, automated (11/14/2018 8:09 PM CDT) ABO/RH AUTOMATED (BEAKER) O POSITIVE [facility] Ab Scrn NEGATIVE [facility] Specimen Blood Performing Organization Address [facility] Phone Number [address] [address] XR chest 1 view portable / bedside (11/14/2018 7:49 PM CDT) Specimen Narrative Performed At FINAL REPORT [facility] EXAMINATION: AP PORTABLE CHEST RADIOGRAP H CLINICAL [...] MD Report Verified Date/Time:11/14/2018 21:29:04 [place] Location: [address] [place] Room Procedure Note Interface, External [...] Verified Date/Time: 11/14/2018 2 1:29:04 [place] Location: [address] [place] Room Performing Organization Address City/State/Zipcode Phone Number [facility] Central Line Insertion (11/14/2018 7:16 PM CDT) Narrative Performed At [facility] 11/14/2018 7:17 PM Procedure Note Procedure: Internal [...] The dilator was removed and an 7 Lao central venous triple lumen catheter was advanced over the guidewire and secured into place with sutures. At time of proc edure completion, all ports aspirated and flushed properly. Po st-procedure x-ray ordered and pending at this time. Complications: none Estimated Blood Loss: Minimal, <5mL Andres Martinez MD Clinical Fellow in Cardiology, PGY5 [facility] Office: [phone] | Pager: [phone] Prothrombin time/INR (11/14/2018 6:28 PM CDT) Protime 17.9 (H) 11.9 - 14.2 seconds [facility] INR 1.6 <=5.9 [facility] Specimen Blood Narrative Performed At Effective 10/27/2018: PT Reference Range [facility] Change New: 11.9-14.2Previous: 11.7-14.7 RECOMMENDED COUMADIN/WARFARIN INR THERAPY RANGES STANDARD DOSE: 2.0-3.0Includes: PROPHYLAXIS for venous thrombosis, systemic embolization; TREATMENT for venous thrombosis and/or pulmonary embolus. HIGH RISK: Target INR is 2.5-3.5 for patients wiht mechanical heart valves. Performing Organization Address City/State/Zipcode Phone Number [facility] [address] [place], [place] [phone] CENTER after 10/20/2018 Insurance Payer Benefit Plan / Subscriber ID Type Phone Address Group MEDICARE MEDICARE A B xxxxxxxxxxx Medicare BLUE CROSS/[place]UE [place]MN[place] xxxxxxxxxxxx PPO [address] [place] [address] Guarantor Name Account Type Relation to Date of Phone Billing Patient Address [place] Personal/Family Self 1945 [id number] (Home) [facility] [place] [phone] (Work) Advance Directives For more information, please contact:[place] [id number] [place], [place] [phone] Code Status Date Activated Date Inactivated Comments [...]
--- OUTSIDE RECORDS SUMMARY | 2019-10-21 15:42 | XMS REPORT ---
:1945 Author Organization [facility] t Address [address] [place] [address] Care Team Providers Name Role Phone Hunter SEYMOUR Primary Care Physician Juvenal Mcintyre MD Attending Clinician Arpit Tejada MD Attending Clinician Nawaf MITCHELL Attending Clinician Aurea Johnson MD. Attending Clinician Denis SEYMOUR, T. Attending Clinician Shelton SEYMOUR J. Attending Clinician Scot CRISTINA Attending Clinician Unavailable MARGAUX LAWRENCE Attending Clinician Unavailable VIVIANA NGUYEN Attending Clinician Unavailable MARGAUX LAWRENCE Admitting Clinician Unavailable VIVIANA NGUYEN Admitting Clinician Unavailable Payers Payer Name Policy Policy Number Effective Expiration Source Type Date Date MEDICAREMEDICARE PART xxxxxxxxxxx 2011 Bhavesh Zaragoza AND 00:00:00 [facility] Aribabkcsuwz32/1/2011 [place] This patient has no known problems. Allergies, Adverse Reactions, Alerts Allergy Allergy Status Severity Reaction(s) Onset Inactive Treating Comm ents Source Name Type Date Date Clinician No Known DA Active U 2017-06 [facility] All[facility]ie 07-04 [place] [facility] 00[facility] Family History Family Member Diagnosis Comments Start Date Stop Date Source Natural father Heart disease Javed Rodriguez Natural mother Kidney disease [place] [facility] Social History Social Habit Start Date Stop Date Quantity Comments Source Sex Assigned At [place] M ethodist Alcohol intake 2019-08-23 2019-08-23 Ex-drinker [facility] delfinoodist 00:00:00 00:00:00 (finding) Alcohol Comment 2019-08-02 2019-08-02 very rare - red [place] [facility] 00:00:00 00:00:00 wine Smoking Status Start Date Stop Date Source Former smoker 2019-08-23 00:00:00 2019-08-23 00:00:00 [place] [facility] Medications Ordered Filled Start Stop Current Ordering Indication Dosage Frequency Signature Comments Components Source Medication Medication Date Date Medication? Clinician (SIG) Name Name HYDROcodone 2019- acute pain 1{tbl} Q6H Take 1 [place] -acetaminop 08-22 tablet by Pa geoff barnett (NORCO) 00:00: 23:[address] 10-325 mg 00 :00 every 6 per tablet (six) hours as needed for severe pain for up to 10 days .acute pain. Max Daily Amount: 4 tablets rivaroxaban 15mg Take 15 mg [place] (XARELTO) 07-29 by mouth. Meth willian 15 mg 10:24: 00:00 st tablet 03 :00 traMADol 2018- acute pain 50mg Q6H Take 1 [place] (ULTRAM) 50 02-08-17 tablet (50 M ethodi mg tablet 00:00: 23:59 mg total) st 00 :00 by mouth every 6 (six) hours as needed for moderate pain for up to 7 days .Acute Pain. traMADol 2018- No Chronic TAKE ONE [place] (ULTRAM) 50 02-01 09-10 pain of (1) Meth willian mg tablet 00:00: 00:00 right knee TABLET(S) st 00 :00 BY MOUTH EVERY SIX HOURS NEEDED FOR MODERATE PAIN FOR UP TO 7 DAYS. traMADol 2018- No chronic 50mg Q6H Take 1 Suzan rosana (ULTRAM) 50 8-27 09-01 pain tablet (50 M ethodi mg tablet 00:00: 00:00 mg total) st 00 :00 by mouth every 6 (six) hours as needed for moderate pain for up to 7 days .chronic pain. traMADol 2018- No Acute pain 50mg Q6H Take 1 [place] (ULTRAM) 50 8-21 08-27 of right tablet (50 Methodi mg tablet 00:00: 00:00 knee mg total) st 00 :00 by mouth every 6 (six) hours as needed for moderate pain for up to 7 days. traMADol 2018- No Acute pain 50mg Q6H Take 1 [place] (ULTRAM) 50 8-19 08-21 of right tablet (50 Methodi mg tablet 00:00: 00:00 knee mg total) st 00 :00 by mouth every 6 (six) hours as needed for moderate pain for up to 5 days. traMADol 2018- No Acute pain 50mg Q6H Take 1 [place] (ULTRAM) 50 7-30 08-19 of right tablet (50 Methodi mg tablet 00:00: 00:00 knee mg total) st 00 :00 by mouth every 6 (six) hours as needed for moderate pain for up to 7 days. simvastatin Yes 20mg QD Take 20 mg [place] (ZOCOR) 20 6-08 by mouth Metho di MG tablet 00:00: daily. st 00 isosorbide 2020- No Take by Suzan ston mononitrate 4-17 02-28 mouth. Metho di (IMDUR) 30 00:00: 00:00 st MG 24 hr 00 :00 tablet allopurinol Yes 100mg Q.5D Take 100 [place] (ZYLOPRIM) 2-20 mg by Methodi 100 MG 00:00: mouth 2 st tablet 00 (two) times a day. torsemide 2019 Yes 20mg Q.5D Take 20 mg [place] (DEMADEX) 2-20 by mouth 2 Meth willian 20 MG 00:00: (two) st tablet 00 times a day. metoprolol Yes 50mg Q.5D Take 50 mg [place] tartrate 2-20 by mouth 2 Metho di (LOPRESSOR) 00:00: (two) st 100 mg 00 times a tablet day. folic acid 2018-0 Yes 1{tbl} QD Take 1 Suzan ston (FOLVITE) 1 2-20 tablet by Met hodi MG tablet 00:00: mouth st 00 daily. traZODone 2019-0 Yes 50mg QD Take 50 mg [place] (DESYREL) 2-20 by mouth Method i 50 MG 00:00: nightly. st tablet 00 apixaban 2016-0 2020- No 2.5mg Q.5D Take 2.5 Suzan ston (ELIQUIS) 5-20 03-05 mg by Methodi 2.5 mg 00:00: 07:[address] tablet 00 :49 (two) times a day. Vital Signs Vital Name Observation Time Observation Value Comments Source Systolic blood 2019-08-02 14:57:00 113 mm[Hg] Tenisha n [facility] pressure Diastolic blood 2019-08-02 14:57:00 72 mm[Hg] Lana argueta [facility] pressure Heart rate 2019-08-02 14:57:00 100 /min Javed Rodriguez Body temperature 2019-08-02 14:57:00 36.72 Justine Abe ton [facility] Respiratory rate 2019-08-02 14:57:00 16 /min Abe Rodriguez Body height 2019-08-02 14:57:00 175.3 cm Javed Rodriguez Body weight 2019-08-02 14:57:00 81.194 kg Javed Rodriguez BMI 2019-08-02 14:57:00 26.43 kg/m2 Javed Rodriguez Oxygen saturation in 2019-08-02 14:57:00 99 /min Javed Rodriguez Arterial blood by Pulse oximetry Procedures Procedure Date / Time Performing Clinician Source Performed CT LUMBAR SPINE WO 2019-08-23 15:31:[address] THORACIC SPINE WO 2019-08-23 15:29:48 Edward Tejada CONTRAST XR LUMBAR SPINE COMPLETE 2019-08-23 13:39:20 Edward Tejada 4+ VW XR CHEST 2 VW 2019-08-02 16:04:56 Javed Johnson ECG PRE/POST OP 2019-08-02 15:41:57 Javed Johnson HC COMPLETE BLD COUNT 2019-08-02 14:51:00 Vernell Barrios W/AUTO DIFF TYPE AND SCREEN 2019-08-02 14:51:00 Vernell Barrios HEMOGLOBIN A1C 2019-08-02 14:51:00 Javed Johnson [place] ARTHROCENTESIS 2019-01-25 10:40:00 Patel Peoples ethodist ASPIR&/INJ MAJOR JT/BURSA W/O US XR KNEE 4+ VW LEFT 2019-01-18 11:00:53 Patel Peoples [place] ARTHROCENTESIS 2019-01-18 10:30:00 Patel Pepoles ethodist ASPIR&/INJ MAJOR JT/BURSA W/O US IA ARTHROCENTESIS 2019-01-11 10:40:00 Patel Peoples ethodist ASPIR&/INJ MAJOR JT/BURSA W/O US XR KNEE 4+ VW RIGHT 2018-12-28 14:16:40 Patel Peoples [place] ARTHROCENTESIS 2018-12-28 14:10:00 Patel Peoples ethodist ASPIR&/INJ MAJOR JT/BURSA W/O US Plan of Care Planned Activity Planned Date Details Comments Source Future Scheduled Test 2019-12-31 INFLUENZA VACCINE Shawn Rodriguez 00:00:00 [code = INFLUENZA VACCINE] Future Scheduled Test 2011 65+ PNEUMOCOCCAL Bhavesh Rodriguez 00:00:00 VACCINE (1 of 2 - PCV13) [code = 65+ PNEUMOCOCCAL VACCINE (1 of 2 - PCV13)] Future Scheduled Test 1996 COLONOSCOPY SCREENING Javed Rodriguez 00:00:00 [code = COLONOSCOPY SCREENING] Future Scheduled Test 1996 SHINGLES VACCINES H jasper Rodriguez 00:00:00 (#1) [code = SHINGLES VACCINES (#1)] Future Appointment 2019-10-27 Vernell Barrios MD, Bhavesh Rodriguez 13:30:00 [id number] [facility]; [address], [place] [address] Future Appointment 2019-10-27 Bhavesh Menard MD 13:30:00 [id number] [facility]; [address], [place] [address] Future Appointment 2019-10-[address] NP, Suzan Rodriguez 13:30:[address] [place] [address]; [address], [place] [address] Encounters Start End Encounter Admission Attending Care Care Encounter Source Date/Time Date/Time Type Type Clinicians Facility Department ID 2019-09-14 2019-09-14 [id number] 15:32:28 17:49:00 Aman Heredia [id number] [place] [id number] [place] [id number] 2019-08-23 2019-08-23 Outpatient EDWARD TEJADA [facility] [id number] [place] 00:00:00 00:00:[address] 2019-08-23 2019-08-23 Outpatient EDWARD TEJADA [facility] [id number] [place] 00:00:00 00:00:[address] 2019-08-23 2019-08-23 Outpatient MALLORY EDWARD [facility] [id number] [place] 00:00:00 00:00:[address] 2019-08-23 2019-08-23 Outpatient MALLORY, EDWARD [facility] [id number] [place] 00:00:00 00:00:[address] 2019-08-02 2019-08-02 Outpatient DENIS, [facility] [id number] [place] 00:00:00 00:00:00 IMRAN [address] 2019-08-02 2019-08-02 Outpatient WOJCIECHOJOBY [facility] [id number] [place] 00:00:00 00:00:00 KI, [address] Results Test Test Test Comments Results Result Source Description Time Comments U/S, RENAL, 2019-09- Reason for FINAL REPORT PATIENT COMPLETE 11 exam:->acute ID: [id number] U/S, 07:10:00 renal RENAL, COMPLETE failureShould CLINICAL [...] bladder. IMPRESSION: Unremarkable renal ultrasound. Signed: JR Flori, Bryce MÉNDEZeport Verified Date/Time: 10/10/2019 07:10:26 Reading Location: [address] Neuro Reading Room Thoracic 2019-07- Interface, [place] Spine Wo [address] Contrast 15:59:02 Incoming - 08/23/2019 4:02 PM CDTEXAMINATION: CT [...] can be further evaluated by dedicated cervical imaging.[id number] CT Lumbar Spine Greg, Tenisha mensah Wo Contrast 24 Radiology Results Method ist 15:43:03 - 08/23/2019 3:46 PM CDTEXAMINATION: CT LUMBAR [...] intervertebral disc space will be demarcated as S1-F1Tlzulk vertebral body heights are preserved. Minimal anterolisthesis [...] at L5-S1. Transitional vertebrae suspected as described above.[id number] ECG Pre/Post Op 2019-08-02 17:06:17 Test Item Value Reference Range Interpretation Comme [...] axis-Low voltage QRS-Abnormal ECG-No previous ECGs available- Javed MethodistHemoglobin [id number] 16:55:38 Test Item Value Reference Range Interpretation Comments Hemoglobin A1C (test 5.2 % 4-5.6 HbA1c c utoffs for code = 19504-3) diagnosing d iabetes:4.0% - 5.6% = normal 5.7% - 6.4% = increase d risk for diabetes (prediabetes)9> =6.5% = ljblufxi2Nbcvv for glycemic contro l (ADA 2016)< 7.0% Ta rget for non stefania lts with diabetes. More or less stringent targe ts may be appropriate for individual samia ents. <7.5% Target for Children and ad olescents with type 1 nettie betes. Javed MethodistType and [id number] 16:43:00 Test Item Value Reference Range Interpretation Comments ABO grouping (test code = 883-9) O Rh type (test code = 37693-6) POS Antibody screen (gel) (test code = NEG 890-4) Burt MethodistXR Chest 2 [id number] 16:08:24Hm Interface, Radiology Results 08/02/2019 4:11 PM CSTEXAMINATION: XR CHEST 2 VWCLINICAL HISTORY: Z01.818 Encounter for other preprocedural examination, Pre OP TestingCOMPARISON: 09/21/2015 IMPRESSION:Right jugular dialysis catheter is in place extending to right atrium. There is stable wsrj-hb-rdowlgjf cardiomegaly. Pulmonary vasculature is normal. There is aortic calcification tortuosity. No focal infiltrate, effusion or pneumothorax seen. Visualized osseous structures are intact. [id number] MethodistCBC with platelet and differential 2019-08-02 15:37:15 Test Item Value Reference Range Interpretation Comments WBC (test code = 88882-4) 15.8 4.5- 11.0 k/uL H RBC (test code = 50154-9) 4.24 m/uL 4.4-6 L HGB (test code = 718-7) 12.5 g/dL 14-18 L HCT (test code = 4544-3) 41.1 % 41-51 MCV (test code = 787-2) 96.9 fL 82-100 MCH (test code = 785-6) 29.5 pg 27-34 MCHC (test code = 786-4) 30.4 g/dL 31-37 L RDW - SD (test code = 86589-3) 53.9 fL 37-55 MPV (test code = 29896-7) 10.1 fL 6.9-11 Platelet count (test code = 367 K/uL 150-400 10352-8) Nucleated RBC (test code = 21846-0) 0.00 /100 WBC Neutrophils (test code = 63418-7) 80.0 % 39-69 H Lymphocytes (test code = 72854-8) 6.3 % 25-45 L Monocytes (test code = 84920-7) 8.3 % 0-10 Eosinophils (test code = 72266-5) 1.7 % 0-5 Basophils (test code = 95124-4) 1.2 % 0-1 H Immature granulocytes (test code = 2.5 % 0-1 H 40571-8) Lab Interpretation (test code = Abnormal 06822-6) [place] MethodistLarge Joint Arthrocentesis: knee, R [id number] 10:40:00 Patel Peoples MD 01/25/2019 4:57 PMLarge Joint Arthrocentesis: knee, R kneeConsent given by:patientSupporting DocumentationIndications: pain Procedure DetailsUltrasound guided: no Platelet Rich Plasma Used: no PRP Used Location: knee - R knee Right side:Needle size: 22 GApproach: anteriorRight knee medications administered: 2 mL sodium hyaluronate (viscosup) 30 mg/2 mLPatient tolerance: patient tolerated the procedure well with no immediate complications [place] [facility]Large [facility] Arthrocentesis: knee, R [id number] 10:30:00 Patel Peoples MD 01/18/2019 12:25 PMLarge Joint Arthrocentesis: knee, R kneeConsent given by:patientSupporting DocumentationIndications: pain Procedure DetailsUltrasound guided: no Platelet Rich Plasma Used: no PRP Used Location: knee - R knee Right side:Needle size: 22 GApproach: anteriorRight knee medications administered: 2 mL sodium hyaluronate (viscosup) 30 mg/2 mLPatient tolerance: patient tolerated the procedure well with no immediate complications [place] [facility]Large [facility] Arthrocentesis: knee, L [id number] 10:30:00 Patel Peoples MD 01/18/2019 12:25 PMLarge Joint [...] tolerated the procedure well with no immediate complicationsDenver MethodistLarge Joint Arthrocentesis: knee, R [id number] 10:40:00Patel Peoples MD 01/11/2019 11:52 AMLarge Joint Arthrocentesis: knee, R kneeConsent given by:patientSupporting DocumentationIndications: pain Procedure DetailsUltrasound guided: no Platelet Rich Plasma Used: no PRP Used Location: knee - R knee Right side:Needle size: 22 GApproach: anteriorRight knee medications administered: 2 mL sodium hyaluronate (viscosup) 30 mg/2 mLPatient tolerance: patient tolerated the procedure well with no immediate complicationsDenver MethodistLarge Joint Arthrocentesis: knee, R [id number] 14:10:00Patel Peoples MD 12/28/2018 4:44 PMLarge Joint Arthrocentesis: knee, R kneeConsent given by:patientTimeout: Immediately prior to procedure a time out was called to verify the correct patient, p rocedure, equipment, arch support maker and site/side marked as required Supporting DocumentationIndications: pain Procedure DetailsUltrasound guided: no Platelet Rich Plasma Used: no PRP Used Location: knee - R knee Right side:Needle size: 25 GApproach: anteriorRight knee medications administered: 1 mL lidocaine 10 mg/mL (1 %); 6 mg betamethasone acetate & sodium phosphate 6 mg/mLPatient tolerance:patient tolerated the procedure well with no immediate complications Javed MethodistPOCT-GLUCOSE [id number] 08:36:00 Test Item Value Reference Range Interpretation Comments POC-GLUCOSE METER 87 mg/dL 70-110 TESTED AT [place] [address] [facility] (test code = [place] [address] 1538) [id number] 06:44:00 Test Item Value Reference Range Interpretation Comments MAGNESIUM (BEAKER) 1.9 mg/dL 1.6-2.6 Specimen slightly (test code = 627) hemolyzed BASIC METABOLIC [id number] 06:44:00 Test Item Value Reference Range Interpretation [...] PATIEN TS. CBC W/PLT COUNT & AUTO [id number] 06:38:00 Test Item Value Reference Range Interpretation [...] PERCENT (BEAKER) (test code = 2801) POCT-GLUCOSE [id number] 21:29:00 Test Item Value Reference Range Interpretation Comments POC-GLUCOSE METER 106 mg/dL 70-110 TESTED AT [place] [address] ([facility]) (test code = [facility] 1538) [address] POCT-GLUCOSE [id number] 17:30:00 Test Item Value Reference Range Interpretation Comments POC-GLUCOSE METER 100 mg/dL 70-110 TESTED AT [place] [address] ([facility]) (test code = [facility] 1538) [address] CALCIUM, [id number] 05:57:00 Test Item Value Reference Range Interpretation Comments CALCIUM IONIZED (AKER) (test 1.02 mmol/L 1.12-1.27 L code = 698) PH, BLOOD ([facility]) (test code = 7.48 1810) [id number] 05:31:00 Test Item Value Reference Range Interpretation Comments PHOSPHORUS (BEAKER) (test code = 3.2 mg/dL 2.3-4.7 604) [id number] 05:31:00 Test Item Value Reference Range Interpretation Comments MAGNESIUM (BEAKER) (test code = 1.7 mg/dL 1.6-2.6 627) COMPREHENSIVE METABOLIC [id number] 05:31:00 Test Item Value Reference Range Interpretation [...] PATIEN TS. CBC W/PLT COUNT & AUTO [id number] 05:18:00 Test Item Value Reference Range Interpretation [...] (BEAKER) (test code = 2801) HEPATITIS B [id number] 20:06:00 Test Item Value Reference Range Interpretation Comments HEPATITIS B CORE TOTAL ANTIBODY Nonreactive Nonreactive (BEAKER) (test code = 497) HEPATITIS B SURFACE ANTIBODY < mIU/mL <8.0 (BEAKER) (test code = 647) HEPATITIS B SURFACE ANTIGEN (2) Nonreactive Nonreactive (BEAKER) (test code = 2585) POCT-GLUCOSE [id number] 12:45:00 Test Item Value Reference Range Interpretation Comments POC-GLUCOSE METER 142 mg/dL 70-110 H TESTED AT [facility] 67[address] (BEAKER) (test code = [place] 1538) [address] POCT-GLUCOSE [id number] 07:50:00 Test Item Value Reference Range Interpretation Comments POC-GLUCOSE METER 106 mg/dL 70-110 TESTED AT [facility] 6720 (BEAKER) (test code = [place] 1538) [address] COMPREHENSIVE METABOLIC [id number] 04:41:00 Test Item Value Reference Range Interpretation [...] S NOT APPLICABLE FOR DIALYSIS PATIEN TS. [id number] 04:40:00 Test Item Value Reference Range Interpretation Comments PHOSPHORUS (BEAKER) (test code = 4.7 mg/dL 2.3-4.7 604) [id number] 04:40:00 Test Item Value Reference Range Interpretation Comments MAGNESIUM (BEAKER) (test code = 2.0 mg/dL 1.6-2.6 627) CBC W/PLT COUNT & AUTO [id number] 04:08:00 Test Item Value Reference Range Interpretation [...] PERCENT (BEAKER) (test code = 2801) CALCIUM, [id number] 03:32:00 Test Item Value Reference Range Interpretation Comments CALCIUM IONIZED (BEAKER) (test 1.00 mmol/L 1.12-1.27 L code = 698) PH, BLOOD (BEAKER) (test code = 7.51 1810) POCT-GLUCOSE [id number] 23:40:00 Test Item Value Reference Range Interpretation Comments POC-GLUCOSE METER 99 mg/dL 70-110 TESTED AT [facility] 67[address] (BEAKER) (test code = [facility] [address] 1538) COMPREHENSIVE METABOLIC [id number] 05:39:00 Test Item Value Reference Range Interpretation [...] S NOT APPLICABLE FOR DIALYSIS PATIEN TS. [id number] 05:36:00 Test Item Value Reference Range Interpretation Comments PHOSPHORUS (BEAKER) (test code = 3.8 mg/dL 2.3-4.7 604) [id number] 05:36:00 Test Item Value Reference Range Interpretation Comments MAGNESIUM (BEAKER) (test code = 2.2 mg/dL 1.6-2.6 627) CBC W/PLT COUNT & AUTO [id number] 05:10:00 Test Item Value Reference Range Interpretation [...] PERCENT (BEAKER) (test code = 2801) CALCIUM, [id number] 05:09:00 Test Item Value Reference Range Interpretation Comments CALCIUM IONIZED (BEAKER) (test 1.03 mmol/L 1.12-1.27 L code = 698) PH, BLOOD (BEAKER) (test code = 7.43 1810) POCT-GLUCOSE [id number] 22:16:00 Test Item Value Reference Range Interpretation Comments POC-GLUCOSE METER 135 mg/dL 70-110 H TESTED AT [place] [address] ([facility]) (test code = [facility] 1538) [address] POCT-GLUCOSE [id number] 11:57:00 Test Item Value Reference Range Interpretation Comments POC-GLUCOSE METER 220 mg/dL 70-110 H TESTED AT [place] [address] ([facility]) (test code = [facility] 1538) [address] POCT-GLUCOSE [id number] 08:20:00 Test Item Value Reference Range Interpretation Comments POC-GLUCOSE METER 114 mg/dL 70-110 H TESTED AT [place] [address] ([facility]) (test code = [place] 1538) [address] [id number] 05:07:00 Test Item Value Reference Range Interpretation [...] 20 % 20-55 (test code = 2590) [id number] 04:47:00 Test Item Value Reference Range Interpretation Comments PHOSPHORUS (BEAKER) (test code = 3.4 mg/dL 2.3-4.7 604) [id number] 04:47:00 Test Item Value Reference Range Interpretation Comments MAGNESIUM (BEAKER) (test code = 1.7 mg/dL 1.6-2.6 627) COMPREHENSIVE METABOLIC [id number] 04:47:00 Test Item Value Reference Range Interpretation [...] NOT APPLICABLE FOR DIALYSIS PATIEN TS. CALCIUM, [id number] 04:40:00 Test Item Value Reference Range Interpretation Comments CALCIUM IONIZED (BEAKER) (test 1.10 mmol/L 1.12-1.27 L code = 698) PH, BLOOD (BEAKER) (test code = 7.44 1810) RETICULOCYTE [id number] 04:28:00 Test Item Value Reference Range Interpretation Comments RETICULOCYTE COUNT PCT (BEAKER) (test 3.5 % 0.5-1.8 H code = 575) CBC W/PLT COUNT & AUTO [id number] 04:27:00 Test Item Value Reference Range Interpretation [...] PERCENT (BEAKER) (test code = 2801) BLOOD [id number] 02:01:00 Test Item Value Reference Range Interpretation Comments CULTURE (BEAKER) (test No growth in 5 days code = 1095) BLOOD [id number] 02:01:00 Test Item Value Reference Range Interpretation Comments CULTURE (BEAKER) (test No growth in 5 days code = 1095) POCT-GLUCOSE [id number] 22:10:00 Test Item Value Reference Range Interpretation Comments POC-GLUCOSE METER 191 mg/dL 70-110 H TESTED AT [facility] 6720 (BEAKER) (test code = [place] 1538) [address] POCT-GLUCOSE [id number] 17:32:00 Test Item Value Reference Range Interpretation Comments POC-GLUCOSE METER 243 mg/dL 70-110 H TESTED AT [facility] 6720 (BEAKER) (test code = [place] 1538) [address] POCT-GLUCOSE [id number] 11:45:00 Test Item Value Reference Range Interpretation Comments POC-GLUCOSE METER 211 mg/dL 70-110 H TESTED AT [facility] 67[address] ([place]) (test code = [place] 1538) [address] C-REACTIVE [id number] 10:51:00 Test Item Value Reference Range Interpretation Comments C-REACTIVE PROTEIN ([place]) (test 12.99 mg/dL 0.00-0.50 H code = 676) RAD, KNEE, 1 OR 2 VIEWS, [id number] 10:15:00Reason for exam:->knee pain,goutShould this be performed [...] [place] Verified Date/Time: 11/19/2018 10:15:39 Reading Location: [facility] RadiologyReading Room RAD, KNEE, 1 OR 2 [...] MDReport Verified Date/Time: 11/19/2018 10:15:39 Reading Location: [facility] RadiologyReading Room POCT-GLUCOSE [id number] 08:02:00 Test Item Value Reference Range Interpretation Comments POC-GLUCOSE METER 166 mg/dL 70-110 H TESTED AT [facility] 6720 (BEAKER) (test code = [place] 1538) [address] CALCIUM, [id number] 05:58:00 Test Item Value Reference Range Interpretation Comments CALCIUM IONIZED (BEAKER) (test 1.01 mmol/L 1.12-1.27 L code = 698) PH, BLOOD (BEAKER) (test code = 7.40 1810) COMPREHENSIVE METABOLIC [id number] 05:03:00 Test Item Value Reference Range Interpretation [...] PATIEN TS. CBC W/PLT COUNT & AUTO [id number] 04:55:00 Test Item Value Reference Range Interpretation [...] H PERCENT (BEAKER) (test code = 2801) [id number] 04:54:00 Test Item Value Reference Range Interpretation Comments PHOSPHORUS (BEAKER) (test code = 5.9 mg/dL 2.3-4.7 H 604) [id number] 04:54:00 Test Item Value Reference Range Interpretation Comments MAGNESIUM (BEAKER) (test code = 1.7 mg/dL 1.6-2.6 627) POCT-GLUCOSE [id number] 22:24:00 Test Item Value Reference Range Interpretation Comments POC-GLUCOSE METER 234 mg/dL 70-110 H TESTED AT [place] [address] ([facility] ([facility] 1538) [address] POCT-GLUCOSE [id number] 17:52:00 Test Item Value Reference Range Interpretation Comments POC-GLUCOSE METER 164 mg/dL 70-110 H TESTED AT [place] [address] ([facility]) (test code = [facility] 1538) [address] POCT-GLUCOSE [id number] 13:53:00 Test Item Value Reference Range Interpretation Comments POC-GLUCOSE METER 165 mg/dL 70-110 H TESTED AT [place] [address] (BEAKER) (test code = [facility] 1538) [address] [id number] 06:53:00 Test Item Value Reference Range Interpretation Comments PHOSPHORUS (BEAKER) (test code = 4.5 mg/dL 2.3-4.7 604) [id number] 06:53:00 Test Item Value Reference Range Interpretation Comments MAGNESIUM (BEAKER) (test code = 1.8 mg/dL 1.6-2.6 627) COMPREHENSIVE METABOLIC [id number] 06:53:00 Test Item Value Reference Range Interpretation [...] FOR DIALYSIS PATIEN TS. Specimen slightly ictericCALCIUM, [id number] 05:57:00 Test Item Value Reference Range Interpretation Comments CALCIUM IONIZED (BEAKER) (test 1.07 mmol/L 1.12-1.27 L code = 698) PH, BLOOD (BEAKER) (test code = 7.37 1810) CBC W/PLT COUNT & AUTO [id number] 05:47:00 Test Item Value Reference Range Interpretation [...] (BEAKER) (test code = 2801) HEMOGLOBIN AND [id number] 15:44:00 Test Item Value Reference Range Interpretation Comments HEMOGLOBIN (BEAKER) (test code = 9.4 GM/DL 13.7-17.5 L 410) HEMATOCRIT (BEAKER) (test code = 31.4 % 40.1-51.0 L 411) HEMORRHAGE IMAGING, [id number] 15:07:00FINAL REPORT PROCEDURE: HEMORRHAGE STUDY with RBCs CPT CODE: 54228 INDICATION: Gastrointestinal Bleeding PROTOCOL: 22.0 mCi of [...] MDReport Verified Date/Time: 11/17/2018 15:07:00 Reading Location: [address] Reading Room PLATELET AGGREGATION: FUNCTION [id number] 12:31:00 Test Item Value Reference Range Interpretation Comments WEAK ADP 90 % 60-91 RESULT(BEAKER) (test code = 2135) PLATELET FUNCTION 60-100% indicates SCREEN INTERP (BEAKER) normal platelet (test code = 2173) function [id number] Kyle Man MD (BEAKER) (test code = (electronic signature) 2622) PLATELET COUNT AGG 215 K/CU MM 150-450 (BEAKER) (test code = 2656) Platelet Function Screen results may be falsely low with platelet counts<100,000/cu mm.xareltoVANCOMYCIN LEVEL, [id number] 09:19:00 Test Item Value Reference Range Interpretation Comments VANCOMYCIN RANDOM (BEAKER) (test 16.1 ug/mL code = 523) Reference Range: No NormalsHEMOGLOBIN AND [id number] 08:24:00 Test Item Value Reference Range Interpretation Comments HEMOGLOBIN (BEAKER) (test code = 8.0 GM/DL 13.7-17.5 L 410) HEMATOCRIT (BEAKER) (test code = 26.3 % 40.1-51.0 L 411) COMPREHENSIVE METABOLIC [id number] 02:44:00 Test Item Value Reference Range Interpretation [...] S NOT APPLICABLE FOR DIALYSIS PATIEN TS. [id number] 02:36:00 Test Item Value Reference Range Interpretation Comments PHOSPHORUS (BEAKER) (test code = 4.2 mg/dL 2.3-4.7 604) [id number] 02:36:00 Test Item Value Reference Range Interpretation Comments MAGNESIUM (BEAKER) (test code = 2.2 mg/dL 1.6-2.6 627) CBC W/PLT COUNT & AUTO [id number] 02:25:00 Test Item Value Reference Range Interpretation [...] PERCENT (BEAKER) (test code = 2801) CALCIUM, [id number] 02:20:00 Test Item Value Reference Range Interpretation Comments CALCIUM IONIZED (BEAKER) (test 1.13 mmol/L 1.12-1.27 code = 698) PH, BLOOD (BEAKER) (test code = 7.43 1810) HEPARIN ASSAY - LOW MOLECULAR [id number] 20:18:00 Test Item Value Reference Range Interpretation Comments LOVENOX-ANTI 10A (BEAKER) (test 0.10 u/ml 0.60-2.00 L code = 1605) Anti-Factor 10-A Level (Heparin Assay for Low Molecular Weight Heparin)Monitoring Guidelines: Blood samples should be obtained 4 hours post subcutaneous injection (time of Peak level) Therapeutic Peak Levels: 0.6-1.0 units/mL twice daily enoxaparin 1.0-2.0 units/mL once daily enoxaparinRef: CHEST 2012;141:d93i-m47lQIYPNCG ASSAY - [id number] 20:18:00 Test Item Value Reference Range Interpretation Comments UNFRACTIONATED HEPARIN-ANTI 10A 0.12 u/ml 0.30-0.70 L (BEAKER) (test code = 1606) Recommendations for Monitoring Unfractionated Heparin Therapeutic Range: 0.3- 0.7 u/mL with continuous IV infusionPT/[id number] 20:02:00 Test Item Value Reference Range Interpretation [...] for patients wiht mechanical heart valves.BASIC METABOLIC [id number] 19:04:00 Test Item Value Reference Range Interpretation [...] APPLICABLE FOR DIALYSIS PATIEN TS. Specimen slightly [id number] 19:01:00 Test Item Value Reference Range Interpretation Comments PHOSPHORUS (BEAKER) (test code = 3.6 mg/dL 2.3-4.7 604) [id number] 19:01:00 Test Item Value Reference Range Interpretation Comments MAGNESIUM (BEAKER) (test code = 2.1 mg/dL 1.6-2.6 627) HEMOGLOBIN AND [id number] 18:27:00 Test Item Value Reference Range Interpretation [...] (test 0.0 % 0.0-5.0 code = 1414) [id number] 05:17:00 Test Item Value Reference Range Interpretation Comments PHOSPHORUS (BEAKER) (test code = 3.1 mg/dL 2.3-4.7 604) [id number] 05:17:00 Test Item Value Reference Range Interpretation Comments MAGNESIUM (BEAKER) (test code = 1.7 mg/dL 1.6-2.6 627) COMPREHENSIVE METABOLIC [id number] 05:17:00 Test Item Value Reference Range Interpretation [...] APPLICABLE FOR DIALYSIS PATIEN TS. VANCOMYCIN LEVEL, [id number] 05:12:00 Test Item Value Reference Range Interpretation Comments VANCOMYCIN RANDOM (BEAKER) (test 7.5 ug/mL code = 523) Reference Range: No NormalsCBC W/PLT COUNT & AUTO [id number] 04:51:00 Test Item Value Reference Range Interpretation [...] PERCENT (BEAKER) (test code = 2801) CALCIUM, [id number] 04:28:00 Test Item Value Reference Range Interpretation Comments CALCIUM IONIZED (BEAKER) (test 1.11 mmol/L 1.12-1.27 L code = 698) PH, BLOOD (BEAKER) (test code = 7.44 1810) HEMOGLOBIN AND [id number] 00:27:00 Test Item Value Reference Range Interpretation Comments HEMOGLOBIN (BEAKER) (test code = 7.7 GM/DL 13.7-17.5 L 410) HEMATOCRIT (BEAKER) (test code = 24.6 % 40.1-51.0 L 411) HEMOGLOBIN AND [id number] 20:58:00 Test Item Value Reference Range Interpretation Comments HEMOGLOBIN (BEAKER) (test code = 7.8 GM/DL 13.7-17.5 L 410) HEMATOCRIT (BEAKER) (test code = 24.7 % 40.1-51.0 L 411) HEMOGLOBIN AND [id number] 18:18:00 Test Item Value Reference Range Interpretation Comments HEMOGLOBIN (BEAKER) (test code = 8.2 GM/DL 13.7-17.5 L 410) HEMATOCRIT (BEAKER) (test code = 25.9 % 40.1-51.0 L 411) HEMOGLOBIN AND [id number] 13:41:00 Test Item Value Reference Range Interpretation Comments HEMOGLOBIN (BEAKER) (test code = 6.9 GM/DL 13.7-17.5 L 410) HEMATOCRIT (BEAKER) (test code = 21.6 % 40.1-51.0 L 411) HEPATITIS B SURFACE [id number] 10:11:00 Test Item Value Reference Range Interpretation Comments HEPATITIS B SURFACE ANTIGEN (2) Nonreactive Nonreactive (BEAKER) (test code = 2585) For chronic HD patients, draw HBsAg with each admission then every 30 days. HEMOGLOBIN AND [id number] 09:38:00 Test Item Value Reference Range Interpretation Comments HEMOGLOBIN (BEAKER) (test code = 7.0 GM/DL 13.7-17.5 L 410) HEMATOCRIT (BEAKER) (test code = 22.9 % 40.1-51.0 L 411) [id number] 09:24:00 Test Item Value Reference Range Interpretation Comments AMMONIA (BEAKER) (test code = 348) 34 mol/L 18-72 CBC W/PLT COUNT & AUTO [id number] 09:07:00 Test Item Value Reference Range Interpretation [...] Received comment: User comments: Slide comments:BASIC METABOLIC [id number] 05:52:00 Test Item Value Reference Range Interpretation [...] S NOT APPLICABLE FOR DIALYSIS PATIEN TS. [id number] 05:46:00 Test Item Value Reference Range Interpretation Comments PHOSPHORUS (BEAKER) (test code = 7.0 mg/dL 2.3-4.7 H 604) [id number] 05:46:00 Test Item Value Reference Range Interpretation Comments MAGNESIUM (BEAKER) (test code = 1.7 mg/dL 1.6-2.6 627) HEMOGLOBIN AND [id number] 05:25:00 Test Item Value Reference Range Interpretation Comments HEMOGLOBIN (BEAKER) (test code = 7.1 GM/DL 13.7-17.5 L 410) HEMATOCRIT (BEAKER) (test code = 22.6 % 40.1-51.0 L 411) [id number] 00:42:00 Test Item Value Reference Range Interpretation Comments PROCALCITONIN (BEAKER) (test code 1.37 ng/mL <0.05 H = 3036) SEPSIS RISK (ng/mL)Low: 0.05-0.50Intermediate: 0.51-2.00High: >=2.01URINALYSIS W/ REFLEX URINE [id number] 23:53:00 Test Item Value Reference Range Interpretation [...] 515) SOURCE(BEAKER) (test code = 2795) CALCIUM, [id number] 23:23:00 Test Item Value Reference Range Interpretation Comments CALCIUM IONIZED (BEAKER) (test 1.10 mmol/L 1.12-1.27 L code = 698) PH, BLOOD (BEAKER) (test code = 7.32 1810) LACTIC ACID, [id number] 23:18:00 Test Item Value Reference Range Interpretation Comments LACTATE BLOOD VENOUS (2) (BEAKER) 0.7 mmol/L 0.5-2.2 (test code = 2872) HEMOGLOBIN AND [id number] 22:54:00 Test Item Value Reference Range Interpretation [...] = 1414) RAD, CHEST, 1 VIEW, NON [id number] 21:29:00Reason for exam:->CVC placementShould this be performed [...] MDReport Verified Date/Time: 11/14/2018 21:29:04 Reading Location: [address] Reading Room CBC W/PLT COUNT & AUTO [id number] 21:06:00 Test Item Value Reference Range Interpretation [...] 3438) Received comment: User comments: Slide comments:PROTHROMBIN TIME/[id number] 19:01:00 Test Item Value Reference Range Interpretation [...] APPLICABLE FOR DIALYSIS PATIEN TS. HEMOGLOBIN AND [id number] 18:39:00 Test Item Value Reference Range Interpretation [...] PLATELET CONCENTRATION Adequate (CELLAVISION)(BEAKER) (test code = 6418) Received comment: User comments: Slide comments:CALCIUM, [id number] 07:12:00 Test Item Value Reference Range Interpretation Comments CALCIUM IONIZED (BEAKER) (test 1.10 mmol/L 1.12-1.27 L code = 698) PH, BLOOD (BEAKER) (test code = 7.35 1810) [id number] 06:59:00 Test Item Value Reference Range Interpretation Comments PHOSPHORUS (BEAKER) (test code = 4.3 mg/dL 2.3-4.7 604) [id number] 06:59:00 Test Item Value Reference Range Interpretation Comments MAGNESIUM (BEAKER) (test code = 1.7 mg/dL 1.6-2.6 627) COMPREHENSIVE METABOLIC [id number] 06:59:00 Test Item Value Reference Range Interpretation [...] = 700) CBC W/PLT COUNT & AUTO [id number] 06:32:00 Test Item Value Reference Range Interpretation [...] = 413) RAD, CHEST, 1 VIEW, NON [id number] 00:54:00Reason for exam:->edemaShould this be performed at the bedside?->YesFINAL REPORT INDICATION: edema COMPARISON: January 05, 2013 TECHNIQUE: Single frontal view of the chest. FINDINGS: Lungs and pleura: Clear lungs. No effusion.Heart and mediastinum:Unchanged cardiomegaly. Unremarkable mediastinal contours.Osseous structures: No acute abnormality.Other: None. IMPRESSION: No pulmonary edema. Signed: Camryn Webbeport Verified Date/Time: 08/03/2018 00:54:17 Reading Location: [facility] Neuro Reading Room BASIC METABOLIC PANEL 2018-08-02 [...] H (BEAKER) (test code = 413) POCT-GLUCOSE [id number] 21:37:00 Test Item Value Reference Range Interpretation Comments POC-GLUCOSE METER 158 mg/dL 70-110 H TESTED AT [facility] 6720 (BEAKER) (test code = [place] 1538) [address] BASIC METABOLIC [id number] 19:11:00 Test Item Value Reference Range Interpretation [...] APPLICABLE FOR DIALYSIS PATIEN TS. CREATININE, RANDOM [id number] 13:56:00 Test Item Value Reference Range Interpretation Comments CREATININE URINE (BEAKER) (test 40.1 mg/dL code = 375) Reference Range: No NormalsSODIUM, RANDOM [id number] 13:56:00 Test Item Value Reference Range Interpretation Comments SODIUM URINE (BEAKER) (test code = 70 meq/L 243) Reference Range: No NormalsUREA NITROGEN, RANDOM [id number] 13:56:00 Test Item Value Reference Range Interpretation Comments UREA NITROGEN URINE (BEAKER) (test 694 mg/dL code = 538) Reference Range: No NormalsURINALYSIS W/ [id number] 13:55:00 Test Item Value Reference Range Interpretation [...] 0 /HPF 520) SOURCE(BEAKER) (test code = 7426) CBC W/PLT COUNT & AUTO [id number] 07:31:00 Test Item Value Reference Range Interpretation [...] (BEAKER) (test code = 2801) BASIC METABOLIC [id number] 07:26:00 Test Item Value Reference Range Interpretation [...] GFR I S NOT APPLICABLE FOR DIALYSIS PATIURIAH TS. [id number] 07:25:00 Test Item Value Reference Range Interpretation Comments MAGNESIUM (BEAKER) (test code = 2.3 mg/dL 1.6-2.6 627) PT/[id number] 07:06:00 Test Item Value Reference Range Interpretation [...]
[2019-10-21] MEDS ORDERED: LORazepam 2 MG/ML VIAL IV PRN (16:36)
[2019-10-21] MEDS ORDERED: SCOPOLAMINE HYDROBROMIDE PATCH TD SCH (17:00)
[2019-10-21] MEDS: HYDROMORPHONE HCL 2 MG/ML inj IV PRN (17:42)
[2019-10-22] MEDS: HYDROMORPHONE HCL 2 MG/ML inj IV PRN ×6 (05:36→23:56)
--- NOTE | 2019-10-22 10:15 | P.PN ---
Subjective Date of Service: 10/22/19 Chief Complaint: COMATOSE MR. MG IS A GM WITH MANY ISSUES, END STAGE CIRRHOSIS, END STAGE RENAL FAILURE, NOW WITH SEPSIS, POSSIBLE ENDOCARDITIS AND SEVERE BACK PAIN. HE IS NOT ABLE TO SURVIVE. FAMILY WANTED HOSPICE TO KEEP HIM COMFORTABLE. I AGREE. Review of Systems is unable to be obtained Physical Examination - Vital Signs Temperature: 97.0 F Blood Pressure: 89/43 Pulse: 100 Respirations: 19 Pulse Ox (%): 98 - Physical Exam General: Moderate distress, Comatose Respiratory: Other (DEEP RESPIRATION WITH PAUSES.) Cardiovascular: Irregular heart rate/rhythm Assessment And Plan - Current Problems (Diagnosis) (1) Hypotension Current Visit: No Status: Acute Plan: SEPSIS RELATED. HE IS DYING. I EXPECT A DAY OR TWO MORE. Qualifiers: (2) Noncompliance of patient with renal dialysis Current Visit: No Status: Acute (3) Intractable back pain Current Visit: No Status: Chronic Plan: HE IS IN SEVERE PAIN AND NEEDS IV MEDS TO CONTROL PAIN. ORAL MEDS DID NOT WORK.
[2019-10-23] MEDS: HYDROMORPHONE HCL 2 MG/ML inj IV PRN ×2 (04:04→09:31)
[2019-10-23 09:41] VITALS: O2SAT 93
[2019-10-23] MEDS ORDERED: HYDROMORPHONE HCL 1 MG/ML INJ IV SCH (11:30)
[2019-10-23] MEDS: HYDROMORPHONE HCL 1 MG/ML INJ IV SCH ×10 (11:45→21:44)
[2019-10-23] MEDS: LORazepam 2 MG/ML VIAL IV SCH ×10 (11:46→21:44)
[2019-10-23 20:07] VITALS: BP 99/57; TEMP 99.1
--- NOTE | 2019-10-23 22:20 | P.DS ---
Admission Date: 10/21/19 Discharge Date: 10/23/19 Discharge Condition: Reason for Admission: COMATOSE - Problems (1) Hypotension Current Visit: No Status: Acute Qualifiers: (2) Noncompliance of patient with renal dialysis Current Visit: No Status: Acute (3) Intractable back pain Current Visit: No Status: Chronic Hospital Course: MR. MG WITH CIRRHOSIS, ESRD, SEPSIS , ON HOSPICE EXPECTED AT 10.04 PM TODAY. Vital Signs/Physical Exam: Temp Pulse Resp BP Pulse Ox 99.1 F 70 24 H 99/57 L 91 10/23/19 20:00 10/23/19 20:00 10/23/19 20:00 10/23/19 20:00 10/23/19 20:00 Home Medications: Allopurinol 100 mg PO DAILY 10/19/19 Apixaban [Eliquis *] 2.5 mg PO BID 10/19/19 Metolazone [Zaroxolyn] 5 mg PO DAILY 10/19/19 Metoprolol Tartrate 100 mg PO BID 10/19/19 Oxycodone HCl/Acetaminophen [Oxycodon-Acetaminophen 7.5-325] 1 tab PO TID PRN 10/19/19 Torsemide [Demadex*] 20 mg PO BID 10/19/19 Trazodone [Desyrel*] 50 mg PO BEDTIME PRN 10/19/19
== END 2019-10-23 22:04 | disposition expired | DRG 951 ==
LOC: 2ND 15:22
PROVIDERS: ADMIT Internal Medicine; ATTEND Internal Medicine
DX: Z51.5 Encounter for palliative care (principal); N18.6 End stage renal disease; J81.0 Acute pulmonary edema; A40.9 Streptococcal sepsis, unspecified; R65.21 Severe sepsis with septic shock; I33.0 Acute and subacute infective endocarditis; I12.0 Hypertensive chronic kidney disease with stage 5 chronic kidney disease or end stage renal disease; I48.11 Longstanding persistent atrial fibrillation; M54.9 Dorsalgia, unspecified; Z79.01 Long term (current) use of anticoagulants; Z79.899 Other long term (current) drug therapy; I25.2 Old myocardial infarction; I25.10 Atherosclerotic heart disease of native coronary artery without angina pectoris; Z95.5 Presence of coronary angioplasty implant and graft; K70.30 Alcoholic cirrhosis of liver without ascites; B95.2 Enterococcus as the cause of diseases classified elsewhere; Z91.15 Patient's noncompliance with renal dialysis
CPT/HCPCS: J1170